=== PATIENT | female | born 1980 | race African-American/Black ===

== ENCOUNTER 2018-01-18 01:31 | Inpatient (IN) | payer MEDICAID, OTHER ==
[~2018-01-18] VITALS: Ht 160 cm; Wt 83.7 kg
[2018-01-18] VITALS (48 sets, daily range): BP systolic 57–117; BP diastolic 25–87
[~2018-01-18 01:31] MED LIST: ACIDOPHILUS1 EAC6 GT; ARTIFICIAL TEAR15 ML BOTH EYES; ATIVAN2 MG/1 ML IV; BISACODYL RC; CHLORHEXIDINE473 ML MM; COLACE100 MG GT; COREG25 MG GT; COREG25 MG ORAL; DILANTIN GT; DILANTIN100 MG GT; FERROUS SULFAT325 MG GT; HYDROGEN PEROX473 ML MC; KEPPRA100 MG/1 M IV; KEPPRA1000 MG ORAL; KEPPRA500 MG GT; LOVENOX10 M4 SUBQ; MAG-OXIDE400 M1 GT; MUCOMYST HHN; MULTI-DELYN237 ML GT; NEXIUM40 MG GT; PROSTAT AWC GT; TRAMADOL HCL50 MG GT; TYLENOL325 MG GT; UTI-STAT L3875 MG/31 GT; VITAMIN C500 MG/11 GT; XOPENEX0.63 MG/3 HHN; ZINC SULFATE220 M1 GT; ZOFRAN 4 MG4 MG/2 ML IM; ZOFRAN2 MG/1 M1 IM; ZOFRAN4 M3 ORAL; ZOFRAN8 MG ORAL
[2018-01-18] MEDS ORDERED: LORazepam Inj 2mg/ml 1ml IV ONE (02:00)
[2018-01-18] MEDS ORDERED: Acetaminophen 650mg/20.3ml GT ONE (02:00)
[2018-01-18] MEDS ORDERED: OMEPRAZOLE40 M1 GT (02:12)
[2018-01-18] MEDS ORDERED: HEPARIN SO5000 UNIT2 SUBQ (02:12)
[2018-01-18] MEDS ORDERED: ALBUTEROL2.5 MG/3 M TRANSTR092 (02:12)
[2018-01-18 02:38] LABS: BASOPHILS % (AUTO) 1.4 % (0.0-2.0); EOSINOPHILS % (AUTO) 0.1 % (0.0-3.0); HEMATOCRIT 63.4 % (37.0-47.0); LYMPHOCYTES % (AUTO) 10.2 % (20.0-45.0); MEAN CORPUSCULAR VOLUME 95 FL (80-99); NEUTROPHILS % (AUTO) 84.3 % (45.0-75.0); PLATELET COUNT 355 K/UL (150-450); RED BLOOD COUNT 6.65 M/UL (4.20-5.40); RED CELL DISTRIBUTION WIDTH 12.4 % (11.6-14.8); WHITE BLOOD COUNT 13.8 K/UL (4.8-10.8)
[2018-01-18 02:45] LABS: ANION GAP 11 mmol/L (5-15); BLOOD UREA NITROGEN 26 mg/dL (7-18); CALCIUM 9.8 MG/DL (8.5-10.1); CARBON DIOXIDE 25 MMOL/L (21-32); CHLORIDE 100 MMOL/L (98-107); CREATININE 1.9 MG/DL (0.55-1.30); HEMOGLOBIN 20.2 G/DL (12.0-16.0); POTASSIUM 3.8 MMOL/L (3.5-5.1); SODIUM 136 MMOL/L (136-145)
[2018-01-18 03:00] LABS: ALANINE AMINOTRANSFERASE 22 U/L (12-78); ALBUMIN 3.4 G/DL (3.4-5.0); ALBUMIN/GLOBULIN RATIO 0.6 (1.0-2.7); ALKALINE PHOSPHATASE 130 U/L (46-116); ASPARTATE AMINO TRANSFERASE 17 U/L (15-37); BILIRUBIN,TOTAL 0.8 MG/DL (0.2-1.0); CKMB < 0.5 NG/ML (0.0-3.6); CREATINE KINASE 35 U/L (26-308)
[2018-01-18] MEDS ORDERED: Potassium Chloride 10 MEQ in NS 1000ml 1,000 ML IV SCH (03:15)
[2018-01-18 03:52] LABS: APPEARANCE,URINE CLEAR; BILIRUBIN, URINE NEGATIVE (NEGATIVE); GLUCOSE, URINE (UA) NEGATIVE (NEGATIVE); KETONES,URINE NEGATIVE (NEGATIVE); NITRITE,URINE NEGATIVE (NEGATIVE); PH,URINE 8 (4.5-8.0); PROTEIN,URINE 1+ (NEGATIVE); UROBILINOGEN,URINE NORMAL MG/DL (0.0-1.0)
[2018-01-18 04:00] LABS: COLOR,URINE YELLOW; LEUKOCYTE ESTERASE ,URINE NEGATIVE (NEGATIVE)
[2018-01-18] MEDS ORDERED: Cefepime HCl 2 GM in D5W 55 ML IVPB ONE (04:15)
[2018-01-18] MEDS ORDERED: Azithromycin 500 MG in D5W 275 ML IVPB ONE (04:15)
[2018-01-18] MEDS ORDERED: Vancomycin 1.5gm/D5W 250ml 250 ML IVPB ONE (05:15)
[2018-01-18] MEDS ORDERED: Piperacillin/Tazobactam 3.375 GM in D5W 110 ML IVPB ONE (05:15)
[2018-01-18] MEDS ORDERED: Acetaminophen 650 MG SUPP RECTAL ONE (05:15)
--- NOTE | 2018-01-18 05:39 | Emergency Room Report ---
History of Present Illness General Chief Complaint: Altered Level of Consciousness Source: Medical Record, EMS Present Illness HPI 37-year-old female presents ED for evaluation. Patient brought in from nursing home facility for respiratory distress, tachycardia. Febrile in triage. History of anoxic brain injury. On trach/ventilator with G-tube. Upon arrival patient unable to provide any additional history at this time. History of anoxic brain injury. No other aggravating or relieving factors. Denies any other associated symptoms Allergies: Coded Allergies: No Known Allergies (Unverified , 01/18/15) Patient History Past Medical History: HTN, seizures, other - anoxic brain injury Past Surgical History: other - trach/vent Pertinent Family History: none Social History: Denies: smoking, alcohol use, drug use Last Menstrual Period: ukn Now: No Immunizations: UTD Reviewed Nursing Documentation: PMH: Agreed; PSxH: Agreed Nursing Documentation-PMH Hx Hypertension: Yes Hx Cancer: No Hx Gastrointestinal Problems: Yes - g-tube Hx Neurological Problems: Yes - Anoxic brain dammage Hx Seizures: Yes Hx Aphasia: Yes Review of Systems All Other Systems: limited Physical Exam Vital Signs Date Time Temp Pulse Resp B/P (MAP) Pulse Ox O2 Delivery O2 Flow Rate FiO2 01/18/18 01:25 100.6 156 38 141/107 Non-Rebreather 15.0 100.6 01/18/18 01:35 100 01/18/18 02:01 100 Sp02 EP Interpretation: reviewed, normal General Appearance: mild distress Head: normocephalic Eyes: bilateral eye normal inspection, bilateral eye PERRL ENT: normal ENT inspection Neck: tracheotomy Respiratory: crackles, rhonchi Cardiovascular #1: tachycardia Gastrointestinal: normal inspection, other - Gtube Rectal: deferred Genitourinary: normal inspection Musculoskeletal: other - contracted extremities Neurologic: other - nonverbal Psychiatric: other - nonverbal Skin: normal inspection Lymphatic: normal inspection Procedures Critical Care Time Critical Care Time i. I feel this is a highly complex case requiring extensive working including EKG/Rhythm strip, Xray/CT/US, Blood/urine lab work, repeat exams while in ED, and administration of strong opiates/narcotics for pain control, admission to hospital or close patient follow up. Total time: 30 min bedside evaluation and treatment excludes procedures (EKG). Reason for critical care: severe sepsis, hypotensive Possible complications: hypotension, hypertension, MD, shock, arrhythmias, metabolic acidosis, end organ damage, respiratory failure. Interventions: labs, ivfs, ekg, cxr, UA. central line. abx Course: patient presenting with respiratory distress. on ventilator. given ativan - no longer fighting ventilator. poor IV access. labs show leukocytosis , lactate > 6, EKG sinus tachycardia. given tylenol . given IVFs. central line. broad spectrum abx given Consultations: nursing staff, EMS, family Performed by: Dr Paulino Tolerated well condition = critical j. because of unstable vital signs this patient had a condition that could potentially threaten life or limb. I feel this is a critical patient who required my full attention while patient was considered critical. Total Critical Care Time excluding procedures was greater than 35 minutes Central Line Central Line : Consent: Emergent Central Line Lumen: triple Maximal Sterile Barrier Tech: yes cap, yes mask, yes sterile gown, yes sterile gloves, yes large sterile sheet, yes hand hygiene, yes chlorhexidine prep Central Line Postion: femoral (R) Anesthesia: Lidocaine Complications: none Central Line Post Position: sutured, good blood return Attempts: One Patient Tolerated: Well Complications: None Medical Decision Making Diagnostic Impression: Primary Impression: Severe sepsis Additional Impressions: Altered level of consciousness Anoxic brain injury Respiratory failure Qualified Codes: J96.90 - Respiratory failure, unspecified, unspecified whether with hypoxia or hypercapnia Renal insufficiency ER Course Hospital Course 37 yo F presenting with fever, tachycardia Differential diagnoses include: Pneumonia, UTI, sepsis, dehydration, MD/ unstable angina Clinical course Patient placed on stretcher. On legal entity controller with tachycardia/hypotension. After initial history and physical, I ordered labs, IV fluids, EKG, chest x-ray , blood cultures, UA. given tylenol Labs - BUN/Cr elevated, noted leukocytosis, troponins negative, lactate > 6 EKG - sinus tachycardia, no aute ischemic changes interpreted by me CXR - no acute process Patient has poor IV access. Right femoral central line placed. given 30cc/kg fluid bolus. f BP slowly improving Abx given. Case discussed with Dr Hernandez and they agreed to admit patient to their service for further care and support I feel this is a highly complex case requiring extensive working including EKG/ Rhythm strip, Xray/CT/US, Blood/urine lab work, repeat exams while in ED, and administration of strong opiates/narcotics for pain control, admission to hospital or close patient follow up. Diagnosis - severe sepsis, ALOC, anoxic brain jury, repsiratoty failuer, renal insufficiency Patient admitted to SDU in critical condition Labs Test 01/18/18 01:50 01/18/18 03:45 White Blood Count 13.8 K/UL (4.8-10.8) Red Blood Count 6.65 M/UL (4.20-5.40) Hemoglobin 20.2 G/DL (12.0-16.0) Hematocrit 63.4 % (37.0-47.0) Mean Corpuscular Volume 95 FL (80-99) Mean Corpuscular Hemoglobin 30.4 PG (27.0-31.0) Mean Corpuscular Hemoglobin Concent 31.9 G/DL (32.0-36.0) Red Cell Distribution Width 12.4 % (11.6-14.8) Platelet Count 355 K/UL (150-450) Mean Platelet Volume 7.2 FL (6.5-10.1) Neutrophils (%) (Auto) 84.3 % (45.0-75.0) Lymphocytes (%) (Auto) 10.2 % (20.0-45.0) Monocytes (%) (Auto) 4.0 % (1.0-10.0) Eosinophils (%) (Auto) 0.1 % (0.0-3.0) Basophils (%) (Auto) 1.4 % (0.0-2.0) Sodium Level 136 MMOL/L (136-145) Potassium Level 3.8 MMOL/L (3.5-5.1) Chloride Level 100 MMOL/L (98-107) Carbon Dioxide Level 25 MMOL/L (21-32) Anion Gap 11 mmol/L (5-15) Blood Urea Nitrogen 26 mg/dL (7-18) Creatinine 1.9 MG/DL (0.55-1.30) Estimat Glomerular Filtration Rate 36.2 mL/min (>60) Glucose Level 135 MG/DL (74-106) Lactic Acid Level 6.30 mmol/L (0.4-2.0) Calcium Level 9.8 MG/DL (8.5-10.1) Total Bilirubin 0.8 MG/DL (0.2-1.0) Aspartate Amino Transf (AST/SGOT) 17 U/L (15-37) Alanine Aminotransferase (ALT/SGPT) 22 U/L (12-78) Alkaline Phosphatase 130 U/L (46-116) Total Creatine Kinase 35 U/L (26-308) Creatine Kinase MB < 0.5 NG/ML (0.0-3.6) Creatine Kinase MB Relative Index 1.4 Troponin I 0.000 ng/mL (0.000-0.056) Pro-B-Type Natriuretic Peptide 278 pg/mL (0-125) Total Protein 9.4 G/DL (6.4-8.2) Albumin 3.4 G/DL (3.4-5.0) Globulin 6.0 g/dL Albumin/Globulin Ratio 0.6 (1.0-2.7) Urine Color Yellow Urine Appearance Clear Urine pH 8 (4.5-8.0) Urine Specific [place] 1.010 (1.005-1.035) Urine Protein 1+ (NEGATIVE) Urine Glucose (UA) Negative (NEGATIVE) Urine Ketones Negative (NEGATIVE) Urine Occult Blood Negative (NEGATIVE) Urine Nitrite Negative (NEGATIVE) Urine Bilirubin Negative (NEGATIVE) Urine Urobilinogen Normal MG/DL (0.0-1.0) Urine Leukocyte Esterase Negative (NEGATIVE) Urine RBC 0 /HPF (0 - 2) Urine WBC 0 /HPF (0 - 2) Urine Squamous Epithelial Cells None /LPF (NONE/OCC) Urine Triple Phosphate Crystals Many /LPF (NONE) Urine Amorphous Sediment Moderate /LPF (NONE) Urine Bacteria Few /HPF (NONE) EKG Diagnostic Results Rate: tachycardiac Rhythm: NSR ST Segments: no acute changes ASA given to the pt in ED: No Rhythm Strip Diag. Results EP Interpretation: yes Rhythm: NSR, no PVC's, no ectopy Chest X-Ray Diagnostic Results Chest X-Ray Diagnostic Results : Chest X-Ray Ordered: Yes # of Views/Limited/Complete: 1 View Indication: Shortness of Breath EP Interpretation: Yes Interpretation: no consolidation, no effusion, no pneumothorax, no acute cardiopulmonary disease Impression: No acute disease Electronically Signed by: Electronically signed by Manish Paulino MD Last Vital Signs Date Time Temp Pulse Resp B/P (MAP) Pulse Ox O2 Delivery O2 Flow Rate FiO2 01/18/18 05:22 143 25 100 01/18/18 03:25 101.2 100/69 100 Trach Collar 15.0 101.2 Status: improved Disposition: ADMITTED INPATIENT Condition: Critical Referrals: LARISA SHAW (PCP) Manish Paulino MD Jan 18, 2018 05:39
[2018-01-18] MEDS ORDERED: Morphine Sulfate 4mg/ml Inj (IV USE ONLY) IVP PRN ×2 (07:15→15:15)
[2018-01-18] MEDS ORDERED: LORazepam Inj 2mg/ml 1ml IV PRN ×2 (07:15→13:15)
[2018-01-18] MEDS ORDERED: Miralax 17gm pkt ORAL PRN (07:15)
[2018-01-18] MEDS ORDERED: Albuterol/Ipratropium 3ml neb HHN PRN ×2 (07:15→15:15)
[2018-01-18] MEDS ORDERED: Pantoprazole Inj IV SCH (09:00)
[2018-01-18] MEDS ORDERED: Phenytoin 100mg cap ORAL SCH (09:00)
[2018-01-18] MEDS: Carvedilol 25mg Tab ORAL SCH ×2 (09:00→09:13)
[2018-01-18] MEDS ORDERED: Heparin 5000 units/ml inj SUBQ SCH (09:00)
--- NOTE | 2018-01-18 10:21 | Diagnostic Imaging Report ---
Indication: Dyspnea Comparison: 06/02/2016 A single view chest radiograph was obtained. Findings: There is abnormal hyperlucency within the visualized part of the abdomen which may be due to free air and/or dilated bowel, which there is some evidence for. Please correlate clinically for recent surgery or procedure that may account for this. Tracheostomy is present. Lungs are clear. IMPRESSION: Hyperlucent the upper abdomen. Free air not excluded. Correlate clinically. Distended bowel also noted. No acute disease within the chest Tracheostomy Critical value communication. Findings were discussed via telephone with Dr. Robles in the E.D @10:03 AM, 01/18/18. The patient was admitted. We will follow up with the admission physician.
--- NOTE | 2018-01-18 10:42 | Pulmonolgy Critical Care Note ---
Critical Care - Asmt/Plan Problems: (1) Acute on chronic respiratory failure (2) Sepsis (3) Anoxic brain injury (4) Feeding by G-tube (5) Tachycardia Respiratory: monitor respiratory rate, adjust FIO2, CXR Cardiac: continue to monitor HR/BP Renal: F/U I&O, keep IV fluid, check electrolytes Infectious Disease: check cultures Gastrointestinal: adjust feedings Endocrine: monitor blood sugar, continue sliding scale insulin Hematologic: monitor H/H, transfuse if hgb<8.5 Neurologic: keep patient comfortable Prophylaxis: Heparin Notes Reviewed: vice president of finance, cardio, renal Discussed with: nurses, consultants, case reviewersales effectiveness manager - Objective Last 24 Hour Vital Signs Date Time Temp Pulse Resp B/P (MAP) Pulse Ox O2 Delivery O2 Flow Rate FiO2 01/18/18 09:29 149 23 100 01/18/18 09:13 149 99/67 01/18/18 06:50 98.8 129 16 106/72 93 Mechanical Ventilator 30 98.8 01/18/18 06:44 136 22 100 01/18/18 06:30 101.3 126 19 98/64 100 Trach Collar 15.0 100 101.3 01/18/18 06:22 101.3 126 19 98/64 100 Trach Collar 15.0 100 101.3 01/18/18 06:21 101.3 01/18/18 05:41 101.9 01/18/18 05:30 142 20 90/66 100 Trach Collar 15.0 100 01/18/18 05:22 143 25 100 01/18/18 04:30 101.5 145 24 92/62 Trach Collar 15.0 101.5 01/18/18 03:25 101.2 141 18 100/69 100 Trach Collar 15.0 101.2 01/18/18 02:47 101.2 01/18/18 02:30 101.2 130 17 98/67 100 Mechanical Ventilator 15.0 100 101.2 01/18/18 02:17 100.6 01/18/18 02:08 154 25 100 01/18/18 02:01 154 25 Mechanical Ventilator 100 01/18/18 01:50 100.6 131 18 97/74 100 Trach Collar 15.0 100.6 01/18/18 01:35 100.6 132 17 108/87 100 Trach Collar 15.0 100.6 01/18/18 01:25 100.6 156 38 141/107 Non-Rebreather 15.0 100.6 Status: awake Condition: critical HEENT: atraumatic Lungs: chest wall tender Abdomen: soft, non-tender Extremities: no C/C/E Decubiti: location Critical Care - Subjective ROS Limited/Unobtainable: Yes Condition: critical EKG Rhythm: Sinus Rhythm FI02: 100 Vent Support Breath Rate: 16 Vent Support Mode: AC Vent Tidal Volume: 500 Sputum Amount: Scant PEEP: 0.0 PIP: 28 I&O: Intake and Output 01/17/18 01/18/18 19:00 07:00 Intake Total 1000 ml Balance 1000 ml Intake IV Total 1000 ml CXR: MELCHOR Labs: Laboratory Tests Test 01/18/18 01:50 01/18/18 03:45 01/18/18 05:24 White Blood Count 13.8 K/UL (4.8-10.8) H Red Blood Count 6.65 M/UL (4.20-5.40) H Hemoglobin 20.2 G/DL (12.0-16.0) *H Hematocrit 63.4 % (37.0-47.0) H Mean Corpuscular Volume 95 FL (80-99) Mean Corpuscular Hemoglobin 30.4 PG (27.0-31.0) Mean Corpuscular Hemoglobin Concent 31.9 G/DL (32.0-36.0) L Red Cell Distribution Width 12.4 % (11.6-14.8) Platelet Count 355 K/UL (150-450) Mean Platelet Volume 7.2 FL (6.5-10.1) Neutrophils (%) (Auto) 84.3 % (45.0-75.0) H Lymphocytes (%) (Auto) 10.2 % (20.0-45.0) L Monocytes (%) (Auto) 4.0 % (1.0-10.0) Eosinophils (%) (Auto) 0.1 % (0.0-3.0) Basophils (%) (Auto) 1.4 % (0.0-2.0) Sodium Level 136 MMOL/L (136-145) Potassium Level 3.8 MMOL/L (3.5-5.1) Chloride Level 100 MMOL/L (98-107) Carbon Dioxide Level 25 MMOL/L (21-32) Anion Gap 11 mmol/L (5-15) Blood Urea Nitrogen 26 mg/dL (7-18) H Creatinine 1.9 MG/DL (0.55-1.30) H Estimat Glomerular Filtration Rate 36.2 mL/min (>60) Glucose Level 135 MG/DL (74-106) H Lactic Acid Level 6.30 mmol/L (0.4-2.0) H 6.00 mmol/L (0.66-2.22) H Calcium Level 9.8 MG/DL (8.5-10.1) Total Bilirubin 0.8 MG/DL (0.2-1.0) Aspartate Amino Transf (AST/SGOT) 17 U/L (15-37) Alanine Aminotransferase (ALT/SGPT) 22 U/L (12-78) Alkaline Phosphatase 130 U/L (46-116) H Total Creatine Kinase 35 U/L (26-308) Creatine Kinase MB < 0.5 NG/ML (0.0-3.6) Creatine Kinase MB Relative Index 1.4 Troponin I 0.000 ng/mL (0.000-0.056) Pro-B-Type Natriuretic Peptide 278 pg/mL (0-125) H Total Protein 9.4 G/DL (6.4-8.2) H Albumin 3.4 G/DL (3.4-5.0) Globulin 6.0 g/dL Albumin/Globulin Ratio 0.6 (1.0-2.7) L Urine Color Yellow Urine Appearance Clear Urine pH 8 (4.5-8.0) Urine Specific [place] 1.010 (1.005-1.035) Urine Protein 1+ (NEGATIVE) H Urine Glucose (UA) Negative (NEGATIVE) Urine Ketones Negative (NEGATIVE) Urine Occult Blood Negative (NEGATIVE) Urine Nitrite Negative (NEGATIVE) Urine Bilirubin Negative (NEGATIVE) Urine Urobilinogen Normal MG/DL (0.0-1.0) Urine Leukocyte Esterase Negative (NEGATIVE) Urine RBC 0 /HPF (0 - 2) Urine WBC 0 /HPF (0 - 2) Urine Squamous Epithelial Cells None /LPF (NONE/OCC) Urine Triple Phosphate Crystals Many /LPF (NONE) H Urine Amorphous Sediment Moderate /LPF (NONE) H Urine Bacteria Few /HPF (NONE) Hepatitis B Surface Antibody Pending Hepatitis C Antibody Pending HIV (1&2) Antibody Rapid Negative (NEGATIVE) Yanick Hernandez MD Jan 18, 2018 10:42
--- NOTE | 2018-01-18 11:27 | Emergency Room Report ---
History of Present Illness General Chief Complaint: Altered Level of Consciousness Source: Medical Record Present Illness Allergies: Coded Allergies: No Known Allergies (Unverified , 01/18/15) Patient History Last Menstrual Period: ukn Now: No Nursing Documentation-[facility] Past Medical History: No History, Except For Hx Cardiac Problems: Yes Hx Hypertension: Yes Hx Cancer: No Hx Gastrointestinal Problems: Yes Hx Neurological Problems: Yes - Anoxic brain damage Hx Seizures: Yes Hx Epilepsy: Yes Hx Aphasia: Yes Physical Exam Vital Signs Date Time Temp Pulse Resp B/P (MAP) Pulse Ox O2 Delivery O2 Flow Rate FiO2 01/18/18 01:25 100.6 156 38 141/107 Non-Rebreather 15.0 100.6 01/18/18 01:35 100 01/18/18 02:01 100 Medical Decision Making Diagnostic Impression: Primary Impression: Severe sepsis Additional Impressions: Altered level of consciousness Anoxic brain injury Renal insufficiency Respiratory failure ER Course The patient was noted to have bradycardia asystolic arrest. The patient was given epinephrine prior to my arrival. She was given IV bicarbonate. The patient was noted to have a return spontaneous circulation. The patient subsequent had a perfusing rhythm. He was started on mechanical ventilator and transferred ICU.Dr. Hernandez was contacted and informed of the patient's recent code. Last Vital Signs Date Time Temp Pulse Resp B/P (MAP) Pulse Ox O2 Delivery O2 Flow Rate FiO2 01/18/18 09:29 149 23 100 01/18/18 09:13 99/67 01/18/18 06:50 98.8 93 Mechanical Ventilator 98.8 01/18/18 06:30 15.0 Disposition: ADMITTED INPATIENT Condition: Critical Referrals: LARISA SHAW (PCP) Ashwin Robles MD Jan 18, 2018 11:27
[2018-01-18] MEDS ORDERED: Phenylephrine 50 MG in D5W 245 ML IV SCH (12:45)
[2018-01-18] MEDS ORDERED: Solu-MEDROL 125mg Inj IVP SCH (12:55)
[2018-01-18] MEDS: Phenylephrine 50 MG in D5W 245 ML IV SCH ×3 (16:19→23:41)
[2018-01-18] MEDS ORDERED: D5 1/2NS 1,000 ML IV SCH (16:30)
[2018-01-18] MEDS ORDERED: EPINEPHrine 1mg/1ml Amp 1 MG in D5W 249 ML IV STA (16:30)
[2018-01-18] MEDS: D5 1/2NS 1,000 ML IV SCH ×2 (17:15→21:31)
--- NOTE | 2018-01-18 17:42 | Consultation ---
History of Present Illness General Date patient seen: Jan 18, 2018 Chief Complaint: Altered Level of Consciousness Present Illness HPI 37 y/o F with hx of HTN, seizure disorder, anoxic brain injury, chronic resp failure trach/vent dependant, s/p G-tbue, SNF resident is brought to ED on 01/18 with resp distress, tachycardia and fever. In the ED, the patient was noted to have bradicardic> asystolic arrest, given Epi, IV bicarbonate with return of spontaneous circulation. Admitted to ICU, currently on maxed on 2 pressors; a 3rd one will be added soon.. Tm 101.3 leukocytosis to 13.8 lactic acidosis to 7 Allergies: Coded Allergies: No Known Allergies (Unverified , 01/18/15) Medication History Scheduled Acetylcysteine (Acetylcysteine), 20 % HHN Q6HR, (Reported) Carvedilol (Coreg), 25 MG ORAL EVERY 12 HOURS, (Reported) Carvedilol (Coreg), 25 MG GT EVERY 12 HOURS, (Reported) Chlorhexidine Gluconate (Chlorhexidine Gluconate), 473 ML MM BID, (Reported) Cran/Vitc/Mannose/Inulin/Brom (Uti-Stat Liquid), 30 ML GT BID, (Reported) Docusate Sodium* (Colace*), 100 MG GT TWICE A DAY, (Reported) Enoxaparin* (Lovenox*), 50 MG SUBQ DAILY, (Reported) Esomeprazole Magnesium (Nexium), 40 MG GT DAILY, (Reported) Ferrous Sulfate* (Ferrous Sulfate*), 300 MG GT THREE TIMES A DAY, (Reported) Heparin Sod (Porcine) (Heparin Sodium*), 5,000 UNITS SUBQ DAILY, (Reported) Hydrogen Peroxide (Hydrogen Peroxide), 473 ML MC BID, (Reported) Lactobacillus Acidophilus (Acidophilus), 2 EACH GT TID, (Reported) Levalbuterol Hcl (Xopenex*), 0.63 MG HHN Q6H, (Reported) Levetiracetam (Keppra), 1,000 MG ORAL BID, (Reported) Levetiracetam (Keppra), 1,000 MG GT EVERY 12 HOURS, (Reported) Magnesium Oxide (Mag-Oxide), 400 MG GT BID, (Reported) Multivitamin Liquid* (Multi-Delyn*), 5 ML GT DAILY, (Reported) Omeprazole (Omeprazole), 40 MG GT DAILY, (Reported) Phenytoin Sodium Extended* (Dilantin*), 150 MG GT Q12HR, (Reported) Vit C/Ascorbate Ca/Ascorb Sod (Vitamin C 500 Mg/15 Ml Liquid), 500 MG GT DAILY, (Reported) Zinc Sulfate (Zinc Sulfate*), 220 MG GT DAILY, (Reported) [dilantin susp], 200 MG GT Q12HR, (Reported) [prostat awc], 30 ML GT DAILY, (Reported) Scheduled PRN Acetaminophen (Tylenol), 650 MG GT Q6H PRN for Mild Pain/Temp > 100.5, (Reported ) Albuterol Sulfate* (Albuterol Sulfate Hhn*), 3 ML [id number] Q3HR PRN for Shortness of Breath, (Reported) Dextran 70/Hypromellose (Artificial Tears Eye Drops*), 1 DROP BOTH EYES Q4HR PRN for Dry Eyes, (Reported) Lorazepam* (Ativan*), 2 MG IV Q4H PRN for For Seizures, (Reported) Ondansetron Hcl (Zofran), 8 MG IM Q8HR PRN for Nausea & Vomiting, (Reported) Ondansetron Hcl* (Zofran*), 8 MG ORAL Q6H PRN for Nausea & Vomiting, (Reported) Ondansetron* (Zofran*), 4 MG IM Q8H PRN for Nausea & Vomiting, (Reported) Ondansetron* (Zofran*), 8 MG ORAL Q6H PRN for Nausea & Vomiting, (Reported) Tramadol Hcl* (Ultram*), 50 MG GT DAILY PRN for For Pain, (Reported) [dulcolax sup], 10 MG RC Q12HR PRN for Constipation, (Reported) Miscellaneous Medications Levetiracetam (Keppra), 500 MG IV, (Reported) Patient History Healthcare decision maker Resuscitation status Full Code Advanced Directive on File Patient History Narrative Pmhx: as above Shx: no smoking, alcohol use, drug use Fhx: non contributory Review of Systems ROS Narrative unable to obtain Physical Exam Physical Exam Narrative General Appearance: chronically ill HEENT: normocephalic, bilateral eye PERRL Neck: tracheotomy Respiratory: crackles, rhonchi Cardiovascular : tachycardia Gastrointestinal: Gtube present; significant abd distention with some grimacing upon palpation; diminished to absent bowel sounds Genitourinary: rock in place Musculoskeletal: other - contracted extremities Neurologic: other - nonverbal Skin: no rash or cellulitis Last 24 Hour Vital Signs Date Time Temp Pulse Resp B/P (MAP) Pulse Ox O2 Delivery O2 Flow Rate FiO2 01/18/18 16:19 104 57/32 01/18/18 16:00 35 01/18/18 15:05 102 17 35 01/18/18 14:53 68/53 01/18/18 13:42 99 18 100 01/18/18 13:30 98 18 67/49 Mechanical Ventilator 99 01/18/18 13:00 101 18 94/39 Mechanical Ventilator 100 01/18/18 12:30 97 18 57/32 Mechanical Ventilator 100 01/18/18 12:22 64/38 01/18/18 12:15 99 18 62/40 Mechanical Ventilator 100 01/18/18 12:00 99.3 98 18 62/44 Mechanical Ventilator 99 99.3 01/18/18 12:00 98 01/18/18 12:00 35 01/18/18 11:55 97 18 57/32 Mechanical Ventilator 100 01/18/18 11:50 99 19 66/34 Mechanical Ventilator 100 01/18/18 11:40 100 20 76/52 100 Mechanical Ventilator 100 01/18/18 11:37 99 20 69/49 100 Mechanical Ventilator 100 01/18/18 11:05 142 24 100 01/18/18 09:29 149 23 100 01/18/18 09:13 149 99/67 01/18/18 08:00 100 01/18/18 08:00 99.1 144 19 99/67 100 Mechanical Ventilator 100 99.1 01/18/18 08:00 143 01/18/18 06:50 98.8 129 16 106/72 93 Mechanical Ventilator 30 98.8 01/18/18 06:44 136 22 100 01/18/18 06:30 101.3 126 19 98/64 100 Trach Collar 15.0 100 101.3 01/18/18 06:22 101.3 126 19 98/64 100 Trach Collar 15.0 100 101.3 01/18/18 06:21 101.3 01/18/18 05:41 101.9 01/18/18 05:30 142 20 90/66 100 Trach Collar 15.0 100 01/18/18 05:22 143 25 100 01/18/18 04:30 101.5 145 24 92/62 Trach Collar 15.0 101.5 01/18/18 03:25 101.2 141 18 100/69 100 Trach Collar 15.0 101.2 01/18/18 02:47 101.2 01/18/18 02:30 101.2 130 17 98/67 100 Mechanical Ventilator 15.0 100 101.2 01/18/18 02:17 100.6 01/18/18 02:08 154 25 100 01/18/18 02:01 154 25 Mechanical Ventilator 100 01/18/18 01:50 100.6 131 18 97/74 100 Trach Collar 15.0 100.6 01/18/18 01:35 100.6 132 17 108/87 100 Trach Collar 15.0 100.6 01/18/18 01:25 100.6 156 38 141/107 Non-Rebreather 15.0 100.6 Intake and Output 01/17/18 01/18/18 19:00 07:00 Intake Total 1000 ml Balance 1000 ml Intake IV Total 1000 ml Laboratory Tests Test 01/18/18 01:50 01/18/18 03:45 01/18/18 05:24 01/18/18 15:40 White Blood Count 13.8 K/UL (4.8-10.8) H Red Blood Count 6.65 M/UL (4.20-5.40) H Hemoglobin 20.2 G/DL (12.0-16.0) *H Hematocrit 63.4 % (37.0-47.0) H Mean Corpuscular Volume 95 FL (80-99) Mean Corpuscular Hemoglobin 30.4 PG (27.0-31.0) Mean Corpuscular Hemoglobin Concent 31.9 G/DL (32.0-36.0) L Red Cell Distribution Width 12.4 % (11.6-14.8) Platelet Count 355 K/UL (150-450) Mean Platelet Volume 7.2 FL (6.5-10.1) Neutrophils (%) (Auto) 84.3 % (45.0-75.0) H Lymphocytes (%) (Auto) 10.2 % (20.0-45.0) L Monocytes (%) (Auto) 4.0 % (1.0-10.0) Eosinophils (%) (Auto) 0.1 % (0.0-3.0) Basophils (%) (Auto) 1.4 % (0.0-2.0) Sodium Level 136 MMOL/L (136-145) Potassium Level 3.8 MMOL/L (3.5-5.1) Chloride Level 100 MMOL/L (98-107) Carbon Dioxide Level 25 MMOL/L (21-32) Anion Gap 11 mmol/L (5-15) Blood Urea Nitrogen 26 mg/dL (7-18) H Creatinine 1.9 MG/DL (0.55-1.30) H Estimat Glomerular Filtration Rate 36.2 mL/min (>60) Glucose Level 135 MG/DL (74-106) H Lactic Acid Level 6.30 mmol/L (0.4-2.0) H 6.00 mmol/L (0.66-2.22) H 7.80 mmol/L (0.4-2.0) H Uric Acid 3.4 MG/DL (2.6-7.2) Calcium Level 9.8 MG/DL (8.5-10.1) Total Bilirubin 0.8 MG/DL (0.2-1.0) Aspartate Amino Transf (AST/SGOT) 17 U/L (15-37) Alanine Aminotransferase (ALT/SGPT) 22 U/L (12-78) Alkaline Phosphatase 130 U/L (46-116) H Total Creatine Kinase 35 U/L (26-308) Creatine Kinase MB < 0.5 NG/ML (0.0-3.6) Creatine Kinase MB Relative Index 1.4 Troponin I 0.000 ng/mL (0.000-0.056) Pro-B-Type Natriuretic Peptide 278 pg/mL (0-125) H Total Protein 9.4 G/DL (6.4-8.2) H Albumin 3.4 G/DL (3.4-5.0) Globulin 6.0 g/dL Albumin/Globulin Ratio 0.6 (1.0-2.7) L Urine Color Yellow Urine Appearance Clear Urine pH 8 (4.5-8.0) Urine Specific [place] 1.010 (1.005-1.035) Urine Protein 1+ (NEGATIVE) H Urine Glucose (UA) Negative (NEGATIVE) Urine Ketones Negative (NEGATIVE) Urine Occult Blood Negative (NEGATIVE) Urine Nitrite Negative (NEGATIVE) Urine Bilirubin Negative (NEGATIVE) Urine Urobilinogen Normal MG/DL (0.0-1.0) Urine Leukocyte Esterase Negative (NEGATIVE) Urine RBC 0 /HPF (0 - 2) Urine WBC 0 /HPF (0 - 2) Urine Squamous Epithelial Cells None /LPF (NONE/OCC) Urine Triple Phosphate Crystals Many /LPF (NONE) H Urine Amorphous Sediment Moderate /LPF (NONE) H Urine Bacteria Few /HPF (NONE) Hepatitis B Surface Antibody Pending Hepatitis C Antibody Pending HIV (1&2) Antibody Rapid Negative (NEGATIVE) Test 01/18/18 15:52 Arterial Blood pH 7.337 (7.350-7.450) Arterial Blood Partial Pressure CO2 27.6 mmHg (35.0-45.0) L Arterial Blood Partial Pressure O2 88.6 mmHg (75.0-100.0) Arterial Blood HCO3 14.5 mmol/L (22.0-26.0) L Arterial Blood Oxygen Saturation 97.2 % (92.0-98.0) Arterial Blood Base Excess -9.5 Benjie Test Positive Height (Feet): 5 Height (Inches): 2.00 Weight (Pounds): 161 Medications Current Medications Medications (Trade) Dose Ordered Sig/Kel Route PRN Reason Start Time Stop Time Status Last Admin Dose Admin Acetaminophen (Tylenol) 650 mg Q4H PRN ORAL FEVER 01/18/18 13:00 02/17/18 08:59 Albuterol/ Ipratropium (Albuterol/ Ipratropium) 3 ml Q4H PRN HHN Shortness of Breath 01/18/18 15:15 01/23/18 07:14 Carvedilol (Coreg) 25 mg EVERY 12 HOURS ORAL 01/18/18 21:00 02/17/18 08:59 Dextrose (Dextrose 50%) 25 ml STAT PRN IV Hypoglycemia 01/19/18 07:15 02/17/18 07:14 Dextrose (Dextrose 50%) 50 ml STAT PRN IV Hypoglycemia 01/19/18 07:30 02/17/18 07:29 Dextrose/Sodium Chloride 1,000 ml @ 50 mls/hr Q20H IV 01/18/18 16:30 02/17/18 16:29 UNV Dextrose/Sodium Chloride 1,000 ml @ 100 mls/hr Q10H IV 01/18/18 14:00 02/17/18 13:59 UNV Heparin Sodium (Porcine) (Heparin 5000 units/ml) 5,000 units EVERY 12 HOURS SUBQ 01/18/18 21:00 02/17/18 08:59 Levetiracetam (Keppra) 1,000 mg BID ORAL 01/18/18 18:00 02/17/18 08:59 Lorazepam (Ativan 2mg/ml 1ml) 2 mg Q2H PRN IV For Anxiety 01/18/18 13:15 01/25/18 07:14 Morphine Sulfate (Morphine Sulfate) 4 mg Q4H PRN IVP Severe Pain (Pain Scale 7-10) 01/18/18 15:15 01/25/18 07:14 Norepinephrine Bitartrate 4 mg/ Dextrose 250 ml @ 0 mls/hr Q24H IV 01/19/18 12:30 02/17/18 12:29 01/18/18 14:53 Norepinephrine Bitartrate 8 mg/ Dextrose 508 ml @ 0 mls/hr Q24H IV 01/18/18 17:00 02/17/18 16:59 Ondansetron HCl (Zofran) 4 mg Q6H PRN IVP Nausea & Vomiting 01/18/18 13:15 02/17/18 07:14 Pantoprazole (Protonix) 40 mg DAILY IV 01/19/18 09:00 02/17/18 08:59 Phenylephrine HCl 50 mg/Dextrose 250 ml @ 0 mls/hr Q24H IV 01/18/18 15:00 02/17/18 14:59 01/18/18 16:19 Phenytoin (Dilantin) 150 mg Q12HR ORAL 01/18/18 21:00 02/17/18 20:59 Polyethylene Glycol (Miralax) 17 gm DAILYPRN PRN ORAL Constipation 01/19/18 07:15 02/17/18 07:14 Vancomycin HCl (Vanco rx to dose) 1 ea DAILY PRN MISC per rx protocol 01/18/18 13:30 02/17/18 13:29 Vancomycin/Sodium Chloride 250 ml @ 166.667 mls/hr Q24H IVPB 01/19/18 05:00 01/24/18 04:59 Assessment/Plan Assessment/Plan Abx: IV Vanco 01/18- Cefepime x1 01/18 Zosyn x1 01/18 Azithromycin x1 01/18 Assessment: Septic shock- r/o bacteremia. No obvious pathology on lungs on CXR. r/o UTI -Bcx p -u/a initial normal; repeat WBC 10-15, nit +, leuk +1 but sq cells mod ( contaminated) -sp cx p ?bowel perforation -suggestive of free air on CXR -CXR: Hyperlucent the upper abdomen. Free air not excluded. Correlate clinically. Distended bowel also noted. No acute disease within the chest. Tracheostomy Fever/leukocytosis Bradycardia> Asystolic cardiac arrest Acute on chronic respirator failure Lactic acidosis INDIRA HTN seizure disorder anoxic brain injury 2014 chronic resp failure trach/vent dependant 2014 s/p G-tube 2014 SNF resident Plan: -Switch IV Vancomycin #1 to Daptomycin for VRE coverage in setting of possible bowel perforation -Start Meropenem and IV Micafungin -STAT KUB and CXR -f/u cx -Monitor CBC/BMP, temperatures -Trend WBC, lactic acid -repeat u/a w/ reflex Thank you for this consultation. Will continue to follow along with you. Discussed with RN. Notified Dr Hernandez and Dr Ferguson. Amelia Bah M.D. Jan 18, 2018 17:42
--- NOTE | 2018-01-18 17:48 | Consultation ---
History of Present Illness General Date patient seen: Jan 18, 2018 Time patient seen: 12:53 Chief Complaint: Altered Level of Consciousness Reason for Consultation: Shock, hypotension Present Illness HPI 37 year old female with anoxic brain injury in ICU with hypotensive requiring pressor support, she is chronically ventilated and on G tube. She was sent to ICU with tachycardia and hypotension. She is currently on three pressors. She was originally sent for G tube malfunction. Allergies: Coded Allergies: No Known Allergies (Unverified , 01/18/15) Medication History Scheduled Acetylcysteine (Acetylcysteine), 20 % HHN Q6HR, (Reported) Carvedilol (Coreg), 25 MG ORAL EVERY 12 HOURS, (Reported) Carvedilol (Coreg), 25 MG GT EVERY 12 HOURS, (Reported) Chlorhexidine Gluconate (Chlorhexidine Gluconate), 473 ML MM BID, (Reported) Cran/Vitc/Mannose/Inulin/Brom (Uti-Stat Liquid), 30 ML GT BID, (Reported) Docusate Sodium* (Colace*), 100 MG GT TWICE A DAY, (Reported) Enoxaparin* (Lovenox*), 50 MG SUBQ DAILY, (Reported) Esomeprazole Magnesium (Nexium), 40 MG GT DAILY, (Reported) Ferrous Sulfate* (Ferrous Sulfate*), 300 MG GT THREE TIMES A DAY, (Reported) Heparin Sod (Porcine) (Heparin Sodium*), 5,000 UNITS SUBQ DAILY, (Reported) Hydrogen Peroxide (Hydrogen Peroxide), 473 ML MC BID, (Reported) Lactobacillus Acidophilus (Acidophilus), 2 EACH GT TID, (Reported) Levalbuterol Hcl (Xopenex*), 0.63 MG HHN Q6H, (Reported) Levetiracetam (Keppra), 1,000 MG ORAL BID, (Reported) Levetiracetam (Keppra), 1,000 MG GT EVERY 12 HOURS, (Reported) Magnesium Oxide (Mag-Oxide), 400 MG GT BID, (Reported) Multivitamin Liquid* (Multi-Delyn*), 5 ML GT DAILY, (Reported) Omeprazole (Omeprazole), 40 MG GT DAILY, (Reported) Phenytoin Sodium Extended* (Dilantin*), 150 MG GT Q12HR, (Reported) Vit C/Ascorbate Ca/Ascorb Sod (Vitamin C 500 Mg/15 Ml Liquid), 500 MG GT DAILY, (Reported) Zinc Sulfate (Zinc Sulfate*), 220 MG GT DAILY, (Reported) [dilantin susp], 200 MG GT Q12HR, (Reported) [prostat awc], 30 ML GT DAILY, (Reported) Scheduled PRN Acetaminophen (Tylenol), 650 MG GT Q6H PRN for Mild Pain/Temp > 100.5, (Reported ) Albuterol Sulfate* (Albuterol Sulfate Hhn*), 3 ML [id number] Q3HR PRN for Shortness of Breath, (Reported) Dextran 70/Hypromellose (Artificial Tears Eye Drops*), 1 DROP BOTH EYES Q4HR PRN for Dry Eyes, (Reported) Lorazepam* (Ativan*), 2 MG IV Q4H PRN for For Seizures, (Reported) Ondansetron Hcl (Zofran), 8 MG IM Q8HR PRN for Nausea & Vomiting, (Reported) Ondansetron Hcl* (Zofran*), 8 MG ORAL Q6H PRN for Nausea & Vomiting, (Reported) Ondansetron* (Zofran*), 4 MG IM Q8H PRN for Nausea & Vomiting, (Reported) Ondansetron* (Zofran*), 8 MG ORAL Q6H PRN for Nausea & Vomiting, (Reported) Tramadol Hcl* (Ultram*), 50 MG GT DAILY PRN for For Pain, (Reported) [dulcolax sup], 10 MG RC Q12HR PRN for Constipation, (Reported) Miscellaneous Medications Levetiracetam (Keppra), 500 MG IV, (Reported) Patient History Healthcare decision maker Resuscitation status Full Code Advanced Directive on File Review of Systems Constitutional: Reports: no symptoms Eye: Reports: no symptoms ENT: Reports: no symptoms Respiratory: Reports: shortness of breath Cardiovascular: Reports: palpitations Gastrointestinal: Reports: no symptoms Genitourinary: Reports: no symptoms Musculoskeletal: Reports: no symptoms Skin: Reports: no symptoms Psychiatric: Reports: no symptoms Neurological: Reports: no symptoms Endocrine: Reports: no symptoms Physical Exam General Appearance: lethargic Lines, tubes and drains: peripheral, endotracheal tube, rock cath HEENT: normocephalic, atraumatic Neck: non-tender Respiratory/Chest: chest wall non-tender Cardiovascular/Chest: tachycardia Abdomen: normal bowel sounds, feeding tube Extremities: normal range of motion Skin Exam: normal pigmentation Neurologic: cast associate II-XII 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 Last 24 Hour Vital Signs Date Time Temp Pulse Resp B/P (MAP) Pulse Ox O2 Delivery O2 Flow Rate FiO2 01/18/18 16:19 104 57/32 01/18/18 16:00 35 01/18/18 15:05 102 17 35 01/18/18 14:53 68/53 01/18/18 13:42 99 18 100 01/18/18 13:30 98 18 67/49 Mechanical Ventilator 99 01/18/18 13:00 101 18 94/39 Mechanical Ventilator 100 01/18/18 12:30 97 18 57/32 Mechanical Ventilator 100 01/18/18 12:22 64/38 01/18/18 12:15 99 18 62/40 Mechanical Ventilator 100 01/18/18 12:00 99.3 98 18 62/44 Mechanical Ventilator 99 99.3 01/18/18 12:00 98 01/18/18 12:00 35 01/18/18 11:55 97 18 57/32 Mechanical Ventilator 100 01/18/18 11:50 99 19 66/34 Mechanical Ventilator 100 01/18/18 11:40 100 20 76/52 100 Mechanical Ventilator 100 01/18/18 11:37 99 20 69/49 100 Mechanical Ventilator 100 01/18/18 11:05 142 24 100 01/18/18 09:29 149 23 100 01/18/18 09:13 149 99/67 01/18/18 08:00 100 01/18/18 08:00 99.1 144 19 99/67 100 Mechanical Ventilator 100 99.1 01/18/18 08:00 143 01/18/18 06:50 98.8 129 16 106/72 93 Mechanical Ventilator 30 98.8 01/18/18 06:44 136 22 100 01/18/18 06:30 101.3 126 19 98/64 100 Trach Collar 15.0 100 101.3 01/18/18 06:22 101.3 126 19 98/64 100 Trach Collar 15.0 100 101.3 01/18/18 06:21 101.3 01/18/18 05:41 101.9 01/18/18 05:30 142 20 90/66 100 Trach Collar 15.0 100 7/2/18 05:22 143 25 100 01/18/18 04:30 101.5 145 24 92/62 Trach Collar 15.0 101.5 01/18/18 03:25 101.2 141 18 100/69 100 Trach Collar 15.0 101.2 01/18/18 02:47 101.2 01/18/18 02:30 101.2 130 17 98/67 100 Mechanical Ventilator 15.0 100 101.2 01/18/18 02:17 100.6 01/18/18 02:08 154 25 100 01/18/18 02:01 154 25 Mechanical Ventilator 100 01/18/18 01:50 100.6 131 18 97/74 100 Trach Collar 15.0 100.6 01/18/18 01:35 100.6 132 17 108/87 100 Trach Collar 15.0 100.6 01/18/18 01:25 100.6 156 38 141/107 Non-Rebreather 15.0 100.6 Intake and Output 01/17/18 01/18/18 19:00 07:00 Intake Total 1000 ml Balance 1000 ml Intake IV Total 1000 ml Laboratory Tests Test 01/18/18 01:50 01/18/18 03:45 01/18/18 05:24 01/18/18 15:40 White Blood Count 13.8 K/UL (4.8-10.8) H Red Blood Count 6.65 M/UL (4.20-5.40) H Hemoglobin 20.2 G/DL (12.0-16.0) *H Hematocrit 63.4 % (37.0-47.0) H Mean Corpuscular Volume 95 FL (80-99) Mean Corpuscular Hemoglobin 30.4 PG (27.0-31.0) Mean Corpuscular Hemoglobin Concent 31.9 G/DL (32.0-36.0) L Red Cell Distribution Width 12.4 % (11.6-14.8) Platelet Count 355 K/UL (150-450) Mean Platelet Volume 7.2 FL (6.5-10.1) Neutrophils (%) (Auto) 84.3 % (45.0-75.0) H Lymphocytes (%) (Auto) 10.2 % (20.0-45.0) L Monocytes (%) (Auto) 4.0 % (1.0-10.0) Eosinophils (%) (Auto) 0.1 % (0.0-3.0) Basophils (%) (Auto) 1.4 % (0.0-2.0) Sodium Level 136 MMOL/L (136-145) Potassium Level 3.8 MMOL/L (3.5-5.1) Chloride Level 100 MMOL/L (98-107) Carbon Dioxide Level 25 MMOL/L (21-32) Anion Gap 11 mmol/L (5-15) Blood Urea Nitrogen 26 mg/dL (7-18) H Creatinine 1.9 MG/DL (0.55-1.30) H Estimat Glomerular Filtration Rate 36.2 mL/min (>60) Glucose Level 135 MG/DL (74-106) H Lactic Acid Level 6.30 mmol/L (0.4-2.0) H 6.00 mmol/L (0.66-2.22) H 7.80 mmol/L (0.4-2.0) H Uric Acid 3.4 MG/DL (2.6-7.2) Calcium Level 9.8 MG/DL (8.5-10.1) Total Bilirubin 0.8 MG/DL (0.2-1.0) Aspartate Amino Transf (AST/SGOT) 17 U/L (15-37) Alanine Aminotransferase (ALT/SGPT) 22 U/L (12-78) Alkaline Phosphatase 130 U/L (46-116) H Total Creatine Kinase 35 U/L (26-308) Creatine Kinase MB < 0.5 NG/ML (0.0-3.6) Creatine Kinase MB Relative Index 1.4 Troponin I 0.000 ng/mL (0.000-0.056) Pro-B-Type Natriuretic Peptide 278 pg/mL (0-125) H Total Protein 9.4 G/DL (6.4-8.2) H Albumin 3.4 G/DL (3.4-5.0) Globulin 6.0 g/dL Albumin/Globulin Ratio 0.6 (1.0-2.7) L Urine Color Yellow Urine Appearance Clear Urine pH 8 (4.5-8.0) Urine Specific [place] 1.010 (1.005-1.035) Urine Protein 1+ (NEGATIVE) H Urine Glucose (UA) Negative (NEGATIVE) Urine Ketones Negative (NEGATIVE) Urine Occult Blood Negative (NEGATIVE) Urine Nitrite Negative (NEGATIVE) Urine Bilirubin Negative (NEGATIVE) Urine Urobilinogen Normal MG/DL (0.0-1.0) Urine Leukocyte Esterase Negative (NEGATIVE) Urine RBC 0 /HPF (0 - 2) Urine WBC 0 /HPF (0 - 2) Urine Squamous Epithelial Cells None /LPF (NONE/OCC) Urine Triple Phosphate Crystals Many /LPF (NONE) H Urine Amorphous Sediment Moderate /LPF (NONE) H Urine Bacteria Few /HPF (NONE) Hepatitis B Surface Antibody Pending Hepatitis C Antibody Pending HIV (1&2) Antibody Rapid Negative (NEGATIVE) Test 01/18/18 15:52 Arterial Blood pH 7.337 (7.350-7.450) Arterial Blood Partial Pressure CO2 27.6 mmHg (35.0-45.0) L Arterial Blood Partial Pressure O2 88.6 mmHg (75.0-100.0) Arterial Blood HCO3 14.5 mmol/L (22.0-26.0) L Arterial Blood Oxygen Saturation 97.2 % (92.0-98.0) Arterial Blood Base Excess -9.5 Benjie Test Positive Height (Feet): 5 Height (Inches): 2.00 Weight (Pounds): 161 Medications Current Medications Medications (Trade) Dose Ordered Sig/Kel Route PRN Reason Start Time Stop Time Status Last Admin Dose Admin Acetaminophen (Tylenol) 650 mg Q4H PRN ORAL FEVER 01/18/18 13:00 02/17/18 08:59 Albuterol/ Ipratropium (Albuterol/ Ipratropium) 3 ml Q4H PRN HHN Shortness of Breath 01/18/18 15:15 01/23/18 07:14 Carvedilol (Coreg) 25 mg EVERY 12 HOURS ORAL 01/18/18 21:00 02/17/18 08:59 Dextrose (Dextrose 50%) 25 ml STAT PRN IV Hypoglycemia 01/19/18 07:15 02/17/18 07:14 Dextrose (Dextrose 50%) 50 ml STAT PRN IV Hypoglycemia 01/19/18 07:30 02/17/18 07:29 Dextrose/Sodium Chloride 1,000 ml @ 50 mls/hr Q20H IV 01/18/18 16:30 02/17/18 16:29 UNV Dextrose/Sodium Chloride 1,000 ml @ 100 mls/hr Q10H IV 01/18/18 14:00 02/17/18 13:59 UNV Heparin Sodium (Porcine) (Heparin 5000 units/ml) 5,000 units EVERY 12 HOURS SUBQ 01/18/18 21:00 02/17/18 08:59 Levetiracetam (Keppra) 1,000 mg BID ORAL 01/18/18 18:00 02/17/18 08:59 Lorazepam (Ativan 2mg/ml 1ml) 2 mg Q2H PRN IV For Anxiety 01/18/18 13:15 01/25/18 07:14 Morphine Sulfate (Morphine Sulfate) 4 mg Q4H PRN IVP Severe Pain (Pain Scale 7-10) 01/18/18 15:15 01/25/18 07:14 Norepinephrine Bitartrate 4 mg/ Dextrose 250 ml @ 0 mls/hr Q24H IV 01/19/18 12:30 02/17/18 12:29 01/18/18 14:53 Norepinephrine Bitartrate 8 mg/ Dextrose 508 ml @ 0 mls/hr Q24H IV 01/18/18 17:00 02/17/18 16:59 Ondansetron HCl (Zofran) 4 mg Q6H PRN IVP Nausea & Vomiting 01/18/18 13:15 02/17/18 07:14 Pantoprazole (Protonix) 40 mg DAILY IV 01/19/18 09:00 02/17/18 08:59 Phenylephrine HCl 50 mg/Dextrose 250 ml @ 0 mls/hr Q24H IV 01/18/18 15:00 02/17/18 14:59 01/18/18 16:19 Phenytoin (Dilantin) 150 mg Q12HR ORAL 01/18/18 21:00 02/17/18 20:59 Polyethylene Glycol (Miralax) 17 gm DAILYPRN PRN ORAL Constipation 01/19/18 07:15 02/17/18 07:14 Vancomycin HCl (Vanco rx to dose) 1 ea DAILY PRN MISC per rx protocol 01/18/18 13:30 02/17/18 13:29 Vancomycin/Sodium Chloride 250 ml @ 166.667 mls/hr Q24H IVPB 01/19/18 05:00 01/24/18 04:59 Assessment/Plan Status: deteriorating Assessment/Plan (1) Acute on chronic respiratory failure (2) Sepsis (3) Anoxic brain injury (4) Feeding by G-tube (5) Tachycardia Critically ill in ICU On levophed/phenylephrine/epinephrine Obtain 2 D echocardiogram NPO Vent Cultures IV Rob Murphy M.D. Jan 18, 2018 17:48
[2018-01-18 18:33] LABS: BILIRUBIN, URINE 1+ (NEGATIVE); COLOR,URINE BROWN; GLUCOSE, URINE (UA) NEGATIVE (NEGATIVE); KETONES,URINE 1+ (NEGATIVE); LEUKOCYTE ESTERASE ,URINE 1+ (NEGATIVE); NITRITE,URINE POSITIVE (NEGATIVE); PH,URINE 7 (4.5-8.0); PROTEIN,URINE 3+ (NEGATIVE); UROBILINOGEN,URINE 1 MG/DL (0.0-1.0)
[2018-01-18 18:40] LABS: APPEARANCE,URINE CLOUDY
--- NOTE | 2018-01-18 20:10 | Consultation ---
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 Patient was in septic shock. In the ED, she had a asystolic arrest which required ACLS with Epi, IV bicarbonate and fortunately return of spontaneous circulation. Admitted to ICU for care and management. During work up found to have distended abdomen, CXR / KUB with concerns of possible intraabdominal process. surgery called to evaluate. patient seen, chart reviewed, patient examined. labs reviewed. Allergies: Coded Allergies: No Known Allergies (Unverified , 01/18/15) Medication History Scheduled Acetylcysteine (Acetylcysteine), 20 % HHN Q6HR, (Reported) Carvedilol (Coreg), 25 MG ORAL EVERY 12 HOURS, (Reported) Carvedilol (Coreg), 25 MG GT EVERY 12 HOURS, (Reported) Chlorhexidine Gluconate (Chlorhexidine Gluconate), 473 ML MM BID, (Reported) Cran/Vitc/Mannose/Inulin/Brom (Uti-Stat Liquid), 30 ML GT BID, (Reported) Docusate Sodium* (Colace*), 100 MG GT TWICE A DAY, (Reported) Enoxaparin* (Lovenox*), 50 MG SUBQ DAILY, (Reported) Esomeprazole Magnesium (Nexium), 40 MG GT DAILY, (Reported) Ferrous Sulfate* (Ferrous Sulfate*), 300 MG GT THREE TIMES A DAY, (Reported) Heparin Sod (Porcine) (Heparin Sodium*), 5,000 UNITS SUBQ DAILY, (Reported) Hydrogen Peroxide (Hydrogen Peroxide), 473 ML MC BID, (Reported) Lactobacillus Acidophilus (Acidophilus), 2 EACH GT TID, (Reported) Levalbuterol Hcl (Xopenex*), 0.63 MG HHN Q6H, (Reported) Levetiracetam (Keppra), 1,000 MG ORAL BID, (Reported) Levetiracetam (Keppra), 1,000 MG GT EVERY 12 HOURS, (Reported) Magnesium Oxide (Mag-Oxide), 400 MG GT BID, (Reported) Multivitamin Liquid* (Multi-Delyn*), 5 ML GT DAILY, (Reported) Omeprazole (Omeprazole), 40 MG GT DAILY, (Reported) Phenytoin Sodium Extended* (Dilantin*), 150 MG GT Q12HR, (Reported) Vit C/Ascorbate Ca/Ascorb Sod (Vitamin C 500 Mg/15 Ml Liquid), 500 MG GT DAILY, (Reported) Zinc Sulfate (Zinc Sulfate*), 220 MG GT DAILY, (Reported) [dilantin susp], 200 MG GT Q12HR, (Reported) [prostat awc], 30 ML GT DAILY, (Reported) Scheduled PRN Acetaminophen (Tylenol), 650 MG GT Q6H PRN for Mild Pain/Temp > 100.5, (Reported ) Albuterol Sulfate* (Albuterol Sulfate Hhn*), 3 ML [id number] Q3HR PRN for Shortness of Breath, (Reported) Dextran 70/Hypromellose (Artificial Tears Eye Drops*), 1 DROP BOTH EYES Q4HR PRN for Dry Eyes, (Reported) Lorazepam* (Ativan*), 2 MG IV Q4H PRN for For Seizures, (Reported) Ondansetron Hcl (Zofran), 8 MG IM Q8HR PRN for Nausea & Vomiting, (Reported) Ondansetron Hcl* (Zofran*), 8 MG ORAL Q6H PRN for Nausea & Vomiting, (Reported) Ondansetron* (Zofran*), 4 MG IM Q8H PRN for Nausea & Vomiting, (Reported) Ondansetron* (Zofran*), 8 MG ORAL Q6H PRN for Nausea & Vomiting, (Reported) Tramadol Hcl* (Ultram*), 50 MG GT DAILY PRN for For Pain, (Reported) [dulcolax sup], 10 MG RC Q12HR PRN for Constipation, (Reported) Miscellaneous Medications Levetiracetam (Keppra), 500 MG IV, (Reported) Patient History Limited by: medical condition History Provided By: Medical Record, PMD Healthcare decision maker Resuscitation status Full Code Advanced Directive on File Past Medical/Surgical History Past Medical/Surgical History: (1) Fever of unknown origin (2) Elevated liver enzymes (3) Heart failure (4) Anemia (5) Leukocytosis (6) Dysphagia (7) Seizure disorder (8) Hypertension (9) Encephalopathy (10) Pneumonia (11) Bradycardia (12) Respiratory failure (13) Tachycardia (14) Sepsis (15) Feeding by G-tube (16) Acute on chronic respiratory failure (17) Renal insufficiency (18) Altered level of consciousness (19) Anoxic brain injury (20) Severe sepsis Review of Systems ROS Narrative cannot obtain given medical condition Physical Exam General Appearance: moderate distress Lines, tubes and drains: central line Neck: trach Respiratory/Chest: on vent Cardiovascular/Chest: tachycardia Abdomen: decreased bowel sounds, distended, hernia, feeding tube Extremities: slow capillary refill Skin Exam: warm/dry Neurologic: unresponsiveness, aphasia Last 24 Hour Vital Signs Date Time Temp Pulse Resp B/P (MAP) Pulse Ox O2 Delivery O2 Flow Rate FiO2 01/18/18 19:48 120 89/47 01/18/18 19:00 113 24 35 01/18/18 17:45 102 21 92/64 Mechanical Ventilator 35 01/18/18 17:30 101 19 82/66 Mechanical Ventilator 35 01/18/18 17:29 102 21 35 01/18/18 17:15 100 22 87/52 Mechanical Ventilator 35 01/18/18 17:10 87/59 01/18/18 17:00 98 19 87/59 Mechanical Ventilator 35 01/18/18 16:45 98 21 78/54 Mechanical Ventilator 35 01/18/18 16:30 98 19 78/48 Mechanical Ventilator 35 01/18/18 16:19 104 57/32 01/18/18 16:15 103 19 57/32 Mechanical Ventilator 35 01/18/18 16:00 35 01/18/18 16:00 103 19 70/53 Mechanical Ventilator 35 01/18/18 15:30 102 19 58/39 Mechanical Ventilator 35 01/18/18 15:05 102 17 35 18 15:00 106 19 58/39 Mechanical Ventilator 35 01/18/18 14:53 68/53 01/18/18 14:30 106 19 58/39 Mechanical Ventilator 35 01/18/18 14:00 101 19 97/25 Mechanical Ventilator 35 01/18/18 13:42 99 18 100 01/18/18 13:30 98 18 67/49 Mechanical Ventilator 99 01/18/18 13:00 101 18 94/39 Mechanical Ventilator 100 01/18/18 12:30 97 18 57/32 Mechanical Ventilator 100 01/18/18 12:22 64/38 01/18/18 12:15 99 18 62/40 Mechanical Ventilator 100 01/18/18 12:00 99.3 98 18 62/44 Mechanical Ventilator 99 99.3 01/18/18 12:00 98 01/18/18 12:00 35 01/18/18 11:55 97 18 57/32 Mechanical Ventilator 100 01/18/18 11:50 99 19 66/34 Mechanical Ventilator 100 01/18/18 11:40 100 20 76/52 100 Mechanical Ventilator 100 01/18/18 11:37 99 20 69/49 100 Mechanical Ventilator 100 01/18/18 11:05 142 24 100 01/18/18 09:29 149 23 100 01/18/18 09:13 149 99/67 01/18/18 08:00 100 01/18/18 08:00 99.1 144 19 99/67 100 Mechanical Ventilator 100 99.1 01/18/18 08:00 143 01/18/18 06:50 98.8 129 16 106/72 93 Mechanical Ventilator 30 98.8 01/18/18 06:44 136 22 100 01/18/18 06:30 101.3 126 19 98/64 100 Trach Collar 15.0 100 101.3 01/18/18 06:22 101.3 126 19 98/64 100 Trach Collar 15.0 100 101.3 01/18/18 06:21 101.3 01/18/18 05:41 101.9 01/18/18 05:30 142 20 90/66 100 Trach Collar 15.0 100 01/18/18 05:22 143 25 100 18 04:30 101.5 145 24 92/62 Trach Collar 15.0 101.5 01/18/18 03:25 101.2 141 18 100/69 100 Trach Collar 15.0 101.2 01/18/18 02:47 101.2 01/18/18 02:30 101.2 130 17 98/67 100 Mechanical Ventilator 15.0 100 101.2 01/18/18 02:17 100.6 01/18/18 02:08 154 25 100 01/18/18 02:01 154 25 Mechanical Ventilator 100 01/18/18 01:50 100.6 131 18 97/74 100 Trach Collar 15.0 100.6 01/18/18 01:35 100.6 132 17 108/87 100 Trach Collar 15.0 100.6 01/18/18 01:25 100.6 156 38 141/107 Non-Rebreather 15.0 100.6 Intake and Output 01/17/18 01/18/18 19:00 07:00 Intake Total 1000 ml Balance 1000 ml Intake IV Total 1000 ml Laboratory Tests Test 01/18/18 01:50 01/18/18 03:45 01/18/18 05:24 01/18/18 15:40 White Blood Count 13.8 K/UL (4.8-10.8) H Red Blood Count 6.65 M/UL (4.20-5.40) H Hemoglobin 20.2 G/DL (12.0-16.0) *H Hematocrit 63.4 % (37.0-47.0) H Mean Corpuscular Volume 95 FL (80-99) Mean Corpuscular Hemoglobin 30.4 PG (27.0-31.0) Mean Corpuscular Hemoglobin Concent 31.9 G/DL (32.0-36.0) L Red Cell Distribution Width 12.4 % (11.6-14.8) Platelet Count 355 K/UL (150-450) Mean Platelet Volume 7.2 FL (6.5-10.1) Neutrophils (%) (Auto) 84.3 % (45.0-75.0) H Lymphocytes (%) (Auto) 10.2 % (20.0-45.0) L Monocytes (%) (Auto) 4.0 % (1.0-10.0) Eosinophils (%) (Auto) 0.1 % (0.0-3.0) Basophils (%) (Auto) 1.4 % (0.0-2.0) Sodium Level 136 MMOL/L (136-145) Potassium Level 3.8 MMOL/L (3.5-5.1) Chloride Level 100 MMOL/L (98-107) Carbon Dioxide Level 25 MMOL/L (21-32) Anion Gap 11 mmol/L (5-15) Blood Urea Nitrogen 26 mg/dL (7-18) H Creatinine 1.9 MG/DL (0.55-1.30) H Estimat Glomerular Filtration Rate 36.2 mL/min (>60) Glucose Level 135 MG/DL (74-106) H Lactic Acid Level 6.30 mmol/L (0.4-2.0) H 6.00 mmol/L (0.66-2.22) H 7.80 mmol/L (0.4-2.0) H Uric Acid 3.4 MG/DL (2.6-7.2) Calcium Level 9.8 MG/DL (8.5-10.1) Total Bilirubin 0.8 MG/DL (0.2-1.0) Aspartate Amino Transf (AST/SGOT) 17 U/L (15-37) Alanine Aminotransferase (ALT/SGPT) 22 U/L (12-78) Alkaline Phosphatase 130 U/L (46-116) H Total Creatine Kinase 35 U/L (26-308) Creatine Kinase MB < 0.5 NG/ML (0.0-3.6) Creatine Kinase MB Relative Index 1.4 Troponin I 0.000 ng/mL (0.000-0.056) Pro-B-Type Natriuretic Peptide 278 pg/mL (0-125) H Total Protein 9.4 G/DL (6.4-8.2) H Albumin 3.4 G/DL (3.4-5.0) Globulin 6.0 g/dL Albumin/Globulin Ratio 0.6 (1.0-2.7) L Urine Color Yellow Urine Appearance Clear Urine pH 8 (4.5-8.0) Urine Specific [place] 1.010 (1.005-1.035) Urine Protein 1+ (NEGATIVE) H Urine Glucose (UA) Negative (NEGATIVE) Urine Ketones Negative (NEGATIVE) Urine Occult Blood Negative (NEGATIVE) Urine Nitrite Negative (NEGATIVE) Urine Bilirubin Negative (NEGATIVE) Urine Urobilinogen Normal MG/DL (0.0-1.0) Urine Leukocyte Esterase Negative (NEGATIVE) Urine RBC 0 /HPF (0 - 2) Urine WBC 0 /HPF (0 - 2) Urine Squamous Epithelial Cells None /LPF (NONE/OCC) Urine Triple Phosphate Crystals Many /LPF (NONE) H Urine Amorphous Sediment Moderate /LPF (NONE) H Urine Bacteria Few /HPF (NONE) Hepatitis B Surface Antibody Pending Hepatitis C Antibody Pending HIV (1&2) Antibody Rapid Negative (NEGATIVE) Test 01/18/18 15:52 01/18/18 17:58 Arterial Blood pH 7.337 (7.350-7.450) Arterial Blood Partial Pressure CO2 27.6 mmHg (35.0-45.0) L Arterial Blood Partial Pressure O2 88.6 mmHg (75.0-100.0) Arterial Blood HCO3 14.5 mmol/L (22.0-26.0) L Arterial Blood Oxygen Saturation 97.2 % (92.0-98.0) Arterial Blood Base Excess -9.5 Benjie Test Positive Urine Color Brown Urine Appearance Cloudy Urine pH 7 (4.5-8.0) Urine Specific [place] 1.010 (1.005-1.035) Urine Protein 3+ (NEGATIVE) H Urine Glucose (UA) Negative (NEGATIVE) Urine Ketones 1+ (NEGATIVE) H Urine Occult Blood 2+ (NEGATIVE) H Urine Nitrite Positive (NEGATIVE) H Urine Bilirubin 1+ (NEGATIVE) H Urine Ictotest Negative Urine Urobilinogen 1 MG/DL (0.0-1.0) H Urine Leukocyte Esterase 1+ (NEGATIVE) H Urine RBC 10-15 /HPF (0 - 2) H Urine WBC 5-10 /HPF (0 - 2) H Urine Squamous Epithelial Cells Moderate /LPF (NONE/OCC) H Urine Calcium Oxalate Crystals Few /LPF (NONE) Urine Uric Acid Crystals Few /LPF (NONE) H Urine Amorphous Sediment Moderate /LPF (NONE) H Urine Bacteria Many /HPF (NONE) H Urine Eosinophils None seen Urine Random Sodium < 20 mmol/L (20-110) L Urine Potassium Timed 65 mmol/L (12-62) H Height (Feet): 5 Height (Inches): 2.00 Weight (Pounds): 161 Medications Current Medications Medications (Trade) Dose Ordered Sig/Kel Route PRN Reason Start Time Stop Time Status Last Admin Dose Admin Acetaminophen (Tylenol) 650 mg Q4H PRN ORAL FEVER 01/18/18 13:00 02/17/18 08:59 Albuterol/ Ipratropium (Albuterol/ Ipratropium) 3 ml Q4H PRN HHN Shortness of Breath 01/18/18 15:15 01/23/18 07:14 Daptomycin 450 mg/ Sodium Chloride 55 ml @ 100 mls/hr Q24HRS IV 01/18/18 20:00 01/25/18 19:59 Dextrose (Dextrose 50%) 25 ml STAT PRN IV Hypoglycemia 01/19/18 07:15 02/17/18 07:14 Dextrose (Dextrose 50%) 50 ml STAT PRN IV Hypoglycemia 01/19/18 07:30 02/17/18 07:29 Dextrose/Sodium Chloride 1,000 ml @ 100 mls/hr Q10H IV 01/18/18 18:30 02/17/18 18:29 01/18/18 17:15 Heparin Sodium (Porcine) (Heparin 5000 units/ml) 5,000 units EVERY 12 HOURS SUBQ 01/18/18 21:00 02/17/18 08:59 Levetiracetam (Keppra) 1,000 mg BID ORAL 01/18/18 18:00 02/17/18 08:59 Lorazepam (Ativan 2mg/ml 1ml) 2 mg Q2H PRN IV For Anxiety 01/18/18 13:15 01/25/18 07:14 Meropenem 1 gm/ Sodium Chloride 55 ml @ 110 mls/hr Q12H IVPB 01/18/18 19:30 01/23/18 19:29 Micafungin Sodium 100 mg/Sodium Chloride 110 ml @ 110 mls/hr Q24H IVPB 01/18/18 20:30 01/25/18 20:29 Morphine Sulfate (Morphine Sulfate) 4 mg Q4H PRN IVP Severe Pain (Pain Scale 7-10) 01/18/18 15:15 01/25/18 07:14 Norepinephrine Bitartrate 8 mg/ Dextrose 508 ml @ 0 mls/hr Q24H IV 01/18/18 17:00 02/17/18 16:59 01/18/18 17:10 Ondansetron HCl (Zofran) 4 mg Q6H PRN IVP Nausea & Vomiting 01/18/18 13:15 02/17/18 07:14 Pantoprazole (Protonix) 40 mg DAILY IV 01/19/18 09:00 02/17/18 08:59 Phenylephrine HCl 50 mg/Dextrose 250 ml @ 0 mls/hr Q24H IV 01/18/18 15:00 02/17/18 14:59 01/18/18 19:48 Phenytoin (Dilantin) 150 mg Q12HR ORAL 01/18/18 21:00 02/17/18 20:59 Polyethylene Glycol (Miralax) 17 gm DAILYPRN PRN ORAL Constipation 01/19/18 07:15 02/17/18 07:14 Assessment/Plan Problem List: (1) Severe sepsis Assessment & Plan: 37F severe sepsis. etiology unknown. labs as above. radiology as above. arrested on arrival in ED and currently in ICU. CXR and KUB reviewed. question of possible free air. on KUB very stool filled bowel with dilated bowels On exam with incarcerated umbilical hernia, cannot determine if chronic, acute, bowel or fat. was able to reduce at bedside fortunately. Need CT scan but unfortunately too unstable for examination Warrants diagnostic laparoscopy vs exploration but given recent events, current condition, and history would not be safe and needs resuscitation first. would unlikely tolerate surgery. needs to respond to resuscitation first. likely very dehydrated given labs. -NPO -IV fluids -IV Abx -trend labs -g tube to suction low intermittent -rock will follow closely. unfortunately very poor prognosis. ICD Codes: A41.9 - Sepsis, unspecified organism; R65.20 - Severe sepsis without septic shock SNOMED: [id number] Status: deteriorating Marshall Ferguson Jan 18, 2018 20:10
[2018-01-18 20:42] LABS: HEMATOCRIT 47.5 % (37.0-47.0); HEMOGLOBIN 15.1 G/DL (12.0-16.0); MEAN CORPUSCULAR VOLUME 93 FL (80-99); PLATELET COUNT 247 K/UL (150-450); RED BLOOD COUNT 5.08 M/UL (4.20-5.40); RED CELL DISTRIBUTION WIDTH 12.1 % (11.6-14.8)
[2018-01-18 20:46] LABS: WHITE BLOOD COUNT 31.6 K/UL (4.8-10.8)
[2018-01-18 20:48] LABS: INR 1.4 (0.9-1.1)
[2018-01-18] MEDS ORDERED: LR 1000ml 1,000 ML IV ONE (20:50)
[2018-01-18 20:51] LABS: ANION GAP 14 mmol/L (5-15); BLOOD UREA NITROGEN 36 mg/dL (7-18); CALCIUM 7.6 MG/DL (8.5-10.1); CARBON DIOXIDE 18 MMOL/L (21-32); CHLORIDE 102 MMOL/L (98-107); CREATININE 2.2 MG/DL (0.55-1.30); POTASSIUM 4.6 MMOL/L (3.5-5.1); SODIUM 134 MMOL/L (136-145)
[2018-01-18] MEDS: Meropenem 1 GM in NS 55 ML IVPB SCH (20:54)
[2018-01-18] MEDS: DAPTOmycin 450 MG in NS 55 ML IV SCH (20:54)
[2018-01-18] MEDS: Micafungin 100 MG in NS 110 ML IVPB SCH (20:55)
[2018-01-18 20:56] LABS: PHOSPHORUS 3.5 MG/DL (2.5-4.9)
[2018-01-18] MEDS ORDERED: Phenytoin Susp 100mg/4ml ORAL SCH (21:00)
[2018-01-18] MEDS ORDERED: Carvedilol 25mg Tab ORAL SCH (21:00)
[2018-01-18] MEDS: Heparin 5000 units/ml inj SUBQ SCH (22:25)
[2018-01-19] VITALS (37 sets, daily range): BP systolic 68–111; BP diastolic 35–84
[2018-01-19] MEDS ORDERED: levETIRAcetam 1,000mg/NS100ml 100 ML IVPB ONE (00:01)
[2018-01-19] MEDS: levETIRAcetam 1,000mg/NS100ml 100 ML IVPB SCH ×3 (00:06→22:31)
[2018-01-19] MEDS: PHENYTOIN IVPB SCH ×3 (00:08→22:31)
[2018-01-19] MEDS: NS IVPB SCH ×3 (00:08→22:31)
[2018-01-19] MEDS: Phenylephrine 50 MG in D5W 245 ML IV SCH ×3 (03:45→16:00)
[2018-01-19] MEDS ORDERED: Vancomycin 750mg/NS 250ml IVPB SCH (05:00)
[2018-01-19 05:57] LABS: HEMATOCRIT 56.5 % (37.0-47.0); MEAN CORPUSCULAR VOLUME 93 FL (80-99); PLATELET COUNT 280 K/UL (150-450); RED BLOOD COUNT 6.05 M/UL (4.20-5.40); RED CELL DISTRIBUTION WIDTH 12.3 % (11.6-14.8)
[2018-01-19 06:15] LABS: ALBUMIN 1.9 G/DL (3.4-5.0); ANION GAP 14 mmol/L (5-15); BLOOD UREA NITROGEN 37 mg/dL (7-18); CARBON DIOXIDE 19 MMOL/L (21-32); CHLORIDE 99 MMOL/L (98-107); CREATININE 1.9 MG/DL (0.55-1.30); PHOSPHORUS 3.3 MG/DL (2.5-4.9); POTASSIUM 4.4 MMOL/L (3.5-5.1); SODIUM 132 MMOL/L (136-145)
[2018-01-19 06:26] LABS: WHITE BLOOD COUNT 40.6 K/UL (4.8-10.8)
[2018-01-19 06:28] LABS: HEMOGLOBIN 18.3 G/DL (12.0-16.0)
[2018-01-19] MEDS: Meropenem 1 GM in NS 55 ML IVPB SCH ×2 (07:04→19:30)
[2018-01-19 07:13] LABS: CREATINE KINASE 1527 U/L (26-308)
[2018-01-19] MEDS ORDERED: Miralax 17gm pkt ORAL PRN (07:15)
[2018-01-19] MEDS ORDERED: Pantoprazole Inj IV SCH (09:00)
[2018-01-19] MEDS: Heparin 5000 units/ml inj SUBQ SCH ×2 (09:29→21:00)
--- NOTE | 2018-01-19 10:28 | Pulmonolgy Critical Care Note ---
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 - Objective Last 24 Hour Vital Signs Date Time Temp Pulse Resp B/P (MAP) Pulse Ox O2 Delivery O2 Flow Rate FiO2 01/19/18 09:30 107/81 01/19/18 09:02 149 27 35 01/19/18 08:00 131 01/19/18 08:00 35 01/19/18 07:28 144 107/81 01/19/18 07:15 139 26 107/81 97 Mechanical Ventilator 35 01/19/18 07:00 135 23 88/59 97 Mechanical Ventilator 35 01/19/18 06:50 136 24 35 01/19/18 06:45 135 24 102/53 97 Mechanical Ventilator 35 01/19/18 06:30 136 16 97/64 96 Mechanical Ventilator 35 01/19/18 06:15 136 12 96/67 96 Mechanical Ventilator 35 01/19/18 06:00 87/67 01/19/18 06:00 135 22 87/67 95 Mechanical Ventilator 35 01/19/18 05:45 134 21 97 Mechanical Ventilator 35 01/19/18 05:30 133 12 86/66 97 Mechanical Ventilator 35 01/19/18 05:15 137 23 94/70 97 Mechanical Ventilator 35 01/19/18 05:00 136 27 111/83 96 Mechanical Ventilator 35 01/19/18 05:00 111/83 01/19/18 04:54 124 23 35 01/19/18 04:45 127 19 101/72 96 Mechanical Ventilator 35 01/19/18 04:30 126 27 92/63 96 Mechanical Ventilator 35 01/19/18 04:15 126 27 91/67 96 Mechanical Ventilator 35 01/19/18 04:00 35 01/19/18 04:00 125 01/19/18 04:00 84/65 7/3/18 04:00 99.4 125 21 84/65 95 Mechanical Ventilator 35 99.4 7/3/18 03:48 127 22 35 7/3/18 03:45 127 23 95/63 95 Mechanical Ventilator 35 7/3/18 03:45 94/56 7/3/18 03:45 133 94/56 7/3/18 03:30 138 25 81/58 95 Mechanical Ventilator 35 7/3/18 03:00 129 22 79/61 97 Mechanical Ventilator 35 7/3/18 03:00 91/62 7/3/18 02:45 125 22 91/62 96 Mechanical Ventilator 35 7/3/18 02:30 130 23 86/66 96 Mechanical Ventilator 35 7/3/18 02:00 135 27 100/75 96 Mechanical Ventilator 35 7/3/18 02:00 100/75 7/3/18 01:54 114 20 35 7/3/18 01:30 130 26 101/84 Mechanical Ventilator 35 7/3/18 01:15 129 25 88/74 Mechanical Ventilator 35 7/3/18 01:04 82/69 7/3/18 01:02 82/59 7/3/18 01:00 126 24 89/62 Mechanical Ventilator 35 7/3/18 00:45 122 23 73/55 Mechanical Ventilator 35 7/3/18 00:30 130 25 92/51 Mechanical Ventilator 35 7/3/18 00:15 100.2 128 25 94/49 Mechanical Ventilator 35 100.2 7/3/18 00:06 83/69 7/3/18 00:00 131 7/3/18 00:00 35 7/3/18 00:00 131 24 83/68 Mechanical Ventilator 35 7/2/18 23:45 138 25 85/66 Mechanical Ventilator 35 7/2/18 23:41 117/52 7/2/18 23:41 149 86/69 7/2/18 23:15 133 29 86/69 Mechanical Ventilator 35 7/2/18 23:01 128 25 35 7/2/18 23:00 86/69 7/2/18 23:00 133 27 117/52 Mechanical Ventilator 35 7/2/18 22:30 127 25 100/63 Mechanical Ventilator 35 7/2/18 22:15 125 24 85/55 Mechanical Ventilator 35 7/2/18 22:00 129 23 87/59 Mechanical Ventilator 35 7/2/18 22:00 83/57 7/2/18 21:45 119 23 83/57 Mechanical Ventilator 35 7/2/18 21:30 115 22 88/55 Mechanical Ventilator 35 7/2/18 21:29 114 22 35 7/2/18 21:15 115 21 92/43 Mechanical Ventilator 35 7/2/18 21:00 100/69 7/2/18 21:00 114 21 100/69 Mechanical Ventilator 35 7/2/18 20:45 111 22 97/69 Mechanical Ventilator 35 7/2/18 20:30 110 21 93/66 Mechanical Ventilator 35 7/2/18 20:15 113 22 80/68 Mechanical Ventilator 35 7/2/18 20:00 35 7/2/18 20:00 98/47 7/2/18 20:00 120 7/2/18 20:00 35 7/2/18 19:48 120 89/47 7/2/18 19:45 120 22 98/47 Mechanical Ventilator 35 7/2/18 19:15 100.9 112 20 74/56 Mechanical Ventilator 35 100.9 7/2/18 19:00 112 21 98/47 Mechanical Ventilator 35 7/2/18 19:00 113 24 35 7/2/18 19:00 84/27 7/2/18 18:30 110 21 98/65 Mechanical Ventilator 35 7/2/18 18:00 99/72 7/2/18 18:00 104 21 99/69 Mechanical Ventilator 35 7/2/18 17:45 102 21 92/64 Mechanical Ventilator 35 7/2/18 17:30 101 19 82/66 Mechanical Ventilator 35 7/2/18 17:29 102 21 35 7/2/18 17:15 100 22 87/52 Mechanical Ventilator 35 7/2/18 17:10 87/59 7/2/18 17:00 98 19 87/59 Mechanical Ventilator 35 7/2/18 16:45 98 21 78/54 Mechanical Ventilator 35 7/2/18 16:30 57/32 7/2/18 16:30 98 19 78/48 Mechanical Ventilator 35 7/2/18 16:19 104 57/32 7/2/18 16:15 103 19 57/32 Mechanical Ventilator 35 7/2/18 16:00 102 7/2/18 16:00 35 7/2/18 16:00 103 19 70/53 Mechanical Ventilator 35 01/18/18 15:30 56/48 01/18/18 15:30 102 19 58/39 Mechanical Ventilator 35 01/18/18 15:05 102 17 35 01/18/18 15:00 106 19 58/39 Mechanical Ventilator 35 01/18/18 14:53 68/53 01/18/18 14:30 68/52 01/18/18 14:30 106 19 58/39 Mechanical Ventilator 35 01/18/18 14:00 101 19 97/25 Mechanical Ventilator 35 01/18/18 13:42 99 18 100 01/18/18 13:30 67/49 01/18/18 13:30 98 18 67/49 Mechanical Ventilator 99 01/18/18 13:00 101 18 94/39 Mechanical Ventilator 100 01/18/18 12:30 97 18 57/32 Mechanical Ventilator 100 01/18/18 12:22 64/38 01/18/18 12:15 99 18 62/40 Mechanical Ventilator 100 01/18/18 12:00 99.3 98 18 62/44 Mechanical Ventilator 99 99.3 01/18/18 12:00 98 01/18/18 12:00 35 01/18/18 11:55 97 18 57/32 Mechanical Ventilator 100 01/18/18 11:50 99 19 66/34 Mechanical Ventilator 100 01/18/18 11:40 100 20 76/52 100 Mechanical Ventilator 100 01/18/18 11:37 99 20 69/49 100 Mechanical Ventilator 100 01/18/18 11:05 142 24 100 Status: obtunded Condition: critical HEENT: atraumatic Heart: HR/BP stable Abdomen: soft Extremities: no C/C/E Micro: Microbiology Date/Time Source Procedure Growth Status 01/18/18 01:50 Blood Blood Culture - Preliminary Resulted 01/18/18 01:40 Blood Blood Culture - Preliminary Resulted 01/18/18 17:58 Urine,Clean Catch Urine Culture - Preliminary NO GROWTH Resulted Accucheck: 248 Critical Care - Subjective ROS Limited/Unobtainable: Yes Condition: critical, grave EKG Rhythm: Sinus Rhythm FI02: 35 Vent Support Breath Rate: 12 Vent Support Mode: AC Vent Tidal Volume: 600 Sputum Amount: Large PEEP: 5.0 PIP: 29 I&O: Intake and Output 01/18/18 01/19/18 19:00 07:00 Intake Total 337.5 ml 3506.2 ml Output Total 69 ml 290 ml Balance 268.5 ml 3216.2 ml Intake IV Total 337.5 ml 3506.2 ml Output Urine Total 69 ml 290 ml Labs: Laboratory Tests Test 01/18/18 15:40 01/18/18 15:52 01/18/18 17:58 01/18/18 19:45 Lactic Acid Level 7.80 mmol/L (0.4-2.0) H 7.70 mmol/L (0.4-2.0) H Arterial Blood pH 7.337 (7.350-7.450) Arterial Blood Partial Pressure CO2 27.6 mmHg (35.0-45.0) L Arterial Blood Partial Pressure O2 88.6 mmHg (75.0-100.0) Arterial Blood HCO3 14.5 mmol/L (22.0-26.0) L Arterial Blood Oxygen Saturation 97.2 % (92.0-98.0) Arterial Blood Base Excess -9.5 Benjie Test Positive Urine Color Brown Urine Appearance Cloudy Urine pH 7 (4.5-8.0) Urine Specific [place] 1.010 (1.005-1.035) Urine Protein 3+ (NEGATIVE) H Urine Glucose (UA) Negative (NEGATIVE) Urine Ketones 1+ (NEGATIVE) H Urine Occult Blood 2+ (NEGATIVE) H Urine Nitrite Positive (NEGATIVE) H Urine Bilirubin 1+ (NEGATIVE) H Urine Ictotest Negative Urine Urobilinogen 1 MG/DL (0.0-1.0) H Urine Leukocyte Esterase 1+ (NEGATIVE) H Urine RBC 10-15 /HPF (0 - 2) H Urine WBC 5-10 /HPF (0 - 2) H Urine Squamous Epithelial Cells Moderate /LPF (NONE/OCC) H Urine Calcium Oxalate Crystals Few /LPF (NONE) Urine Uric Acid Crystals Few /LPF (NONE) H Urine Amorphous Sediment Moderate /LPF (NONE) H Urine Bacteria Many /HPF (NONE) H Urine Eosinophils None seen Urine Random Sodium < 20 mmol/L (20-110) L Urine Potassium Timed 65 mmol/L (12-62) H Test 01/18/18 19:55 01/19/18 05:16 01/19/18 09:50 White Blood Count 31.6 K/UL (4.8-10.8) #*H 40.6 K/UL (4.8-10.8) *H Red Blood Count 5.08 M/UL (4.20-5.40) 6.05 M/UL (4.20-5.40) H Hemoglobin 15.1 G/DL (12.0-16.0) 18.3 G/DL (12.0-16.0) *H Hematocrit 47.5 % (37.0-47.0) H 56.5 % (37.0-47.0) H Mean Corpuscular Volume 93 FL (80-99) 93 FL (80-99) Mean Corpuscular Hemoglobin 29.7 PG (27.0-31.0) 30.2 PG (27.0-31.0) Mean Corpuscular Hemoglobin Concent 31.8 G/DL (32.0-36.0) L 32.3 G/DL (32.0-36.0) Red Cell Distribution Width 12.1 % (11.6-14.8) 12.3 % (11.6-14.8) Platelet Count 247 K/UL (150-450) 280 K/UL (150-450) Mean Platelet Volume 7.1 FL (6.5-10.1) 7.3 FL (6.5-10.1) Neutrophils (%) (Auto) % (45.0-75.0) % (45.0-75.0) Lymphocytes (%) (Auto) % (20.0-45.0) % (20.0-45.0) Monocytes (%) (Auto) % (1.0-10.0) % (1.0-10.0) Eosinophils (%) (Auto) % (0.0-3.0) % (0.0-3.0) Basophils (%) (Auto) % (0.0-2.0) % (0.0-2.0) Differential Total Cells Counted 100 100 Neutrophils % (Manual) 56 % (45-75) 37 % (45-75) L Lymphocytes % (Manual) 14 % (20-45) L 6 % (20-45) L Monocytes % (Manual) 5 % (1-10) 6 % (1-10) Eosinophils % (Manual) 0 % (0-3) 1 % (0-3) Basophils % (Manual) 0 % (0-2) 1 % (0-2) Band Neutrophils 25 % (0-8) H 45 % (0-8) H Platelet Estimate Adequate Adequate Platelet Morphology Normal Normal Red Blood Cell Morphology Normal Normal Prothrombin Time 14.5 SEC (9.30-11.50) H Prothromb Time International Ratio 1.4 (0.9-1.1) H Activated Partial Thromboplast Time 39 SEC (23-33) H Sodium Level 134 MMOL/L (136-145) L 132 MMOL/L (136-145) L Potassium Level 4.6 MMOL/L (3.5-5.1) 4.4 MMOL/L (3.5-5.1) Chloride Level 102 MMOL/L (98-107) 99 MMOL/L (98-107) Carbon Dioxide Level 18 MMOL/L (21-32) L 19 MMOL/L (21-32) L Anion Gap 14 mmol/L (5-15) 14 mmol/L (5-15) Blood Urea Nitrogen 36 mg/dL (7-18) H 37 mg/dL (7-18) H Creatinine 2.2 MG/DL (0.55-1.30) H 1.9 MG/DL (0.55-1.30) H Estimat Glomerular Filtration Rate 30.5 mL/min (>60) 36.2 mL/min (>60) Glucose Level 315 MG/DL (74-106) #H 188 MG/DL (74-106) #H Calcium Level 7.6 MG/DL (8.5-10.1) #L 8.0 MG/DL (8.5-10.1) L Phosphorus Level 3.5 MG/DL (2.5-4.9) 3.3 MG/DL (2.5-4.9) Magnesium Level 2.6 MG/DL (1.8-2.4) H Troponin I 0.070 ng/mL (0.000-0.056) Metamyelocytes % 4 % (0-0) H Lactic Acid Level 7.40 mmol/L (0.4-2.0) H Pending Total Creatine Kinase 1527 U/L (26-308) H Albumin 1.9 G/DL (3.4-5.0) L Jak2 [id number] Mutation Detection Pending JAK2 [id number] Mutation Background Pending JAK2 [id number] Reviewed By Pending Yanick Hernandez MD Jan 19, 2018 10:28
--- NOTE | 2018-01-19 11:14 | Infectious Diseases Prog Note ---
Assessment/Plan Assessment/Plan Assessment: Septic shock- 2ry to bacteremia and suspect intrabdominal source- r/o bowel perforation, had incarcerated umbilical hernia which was able to be reduced at bedside. -No obvious pathology on lungs on CXR. r/o UTI -Bcx 2/4 GPRs (r/o clostridium, listeria), 1/4 GPC -u/a initial normal; repeat WBC 10-15, nit +, leuk +1 but sq cells mod ( contaminated); ucx NTD -sp cx p ?bowel perforation -suggestive of free air on CXR -CXR: Hyperlucent the upper abdomen. Free air not excluded. Correlate clinically. Distended bowel also noted. No acute disease within the chest. Tracheostomy Fever/leukocytosis Bradycardia> Asystolic cardiac arrest Acute on chronic respirator failure Lactic acidosis; improving INDIRA HTN seizure disorder anoxic brain injury 2014 chronic resp failure trach/vent dependant 2014 s/p G-tube 2015 SNF resident Plan: -Continue Daptomycin, Meropenem and Micafungin #2 for septic shock and for bowel emmanuel coverage -01/18 SP IV Vancomycin #1, Cefepime x1, Azithromycin x1, Zosyn x1 -f/u KUB and CXR -f/u cx -Monitor CBC/BMP, temperatures -Trend WBC, lactic acid -Too unstable for CT abd/p -Surgery following -critically ill, poor px Thank you for this consultation. Will continue to follow along with you. Discussed with RN. Discussed with Dr Ferguson. Subjective Allergies: Coded Allergies: No Known Allergies (Unverified , 01/18/15) Subjective remains maxed on 2 pressors Objective Vital Signs Last 24 Hour Vital Signs Date Time Temp Pulse Resp B/P (MAP) Pulse Ox O2 Delivery O2 Flow Rate FiO2 01/19/18 09:30 107/01/19/18 09:02 149 27 35 01/19/18 08:00 131 01/19/18 08:00 35 01/19/18 07:28 144 107/81 01/19/18 07:15 139 26 107/81 97 Mechanical Ventilator 35 01/19/18 07:00 135 23 88/59 97 Mechanical Ventilator 35 01/19/18 06:50 136 24 35 01/19/18 06:45 135 24 102/53 97 Mechanical Ventilator 35 01/19/18 06:30 136 16 97/64 96 Mechanical Ventilator 35 7/3/18 06:15 136 12 96/67 96 Mechanical Ventilator 35 7/3/18 06:00 87/67 7/3/18 06:00 135 22 87/67 95 Mechanical Ventilator 35 7/3/18 05:45 134 21 97 Mechanical Ventilator 35 7/3/18 05:30 133 12 86/66 97 Mechanical Ventilator 35 7/3/18 05:15 137 23 94/70 97 Mechanical Ventilator 35 7/3/18 05:00 136 27 111/83 96 Mechanical Ventilator 35 7/3/18 05:00 111/83 7/3/18 04:54 124 23 35 7/3/18 04:45 127 19 101/72 96 Mechanical Ventilator 35 7/3/18 04:30 126 27 92/63 96 Mechanical Ventilator 35 7/3/18 04:15 126 27 91/67 96 Mechanical Ventilator 35 7/3/18 04:00 35 7/3/18 04:00 125 7/3/18 04:00 84/65 7/3/18 04:00 99.4 125 21 84/65 95 Mechanical Ventilator 35 99.4 7/3/18 03:48 127 22 35 7/3/18 03:45 127 23 95/63 95 Mechanical Ventilator 35 7/3/18 03:45 94/56 7/3/18 03:45 133 94/56 7/3/18 03:30 138 25 81/58 95 Mechanical Ventilator 35 7/3/18 03:00 129 22 79/61 97 Mechanical Ventilator 35 7/3/18 03:00 91/62 7/3/18 02:45 125 22 91/62 96 Mechanical Ventilator 35 7/3/18 02:30 130 23 86/66 96 Mechanical Ventilator 35 7/3/18 02:00 135 27 100/75 96 Mechanical Ventilator 35 7/3/18 02:00 100/75 7/3/18 01:54 114 20 35 7/3/18 01:30 130 26 101/84 Mechanical Ventilator 35 7/3/18 01:15 129 25 88/74 Mechanical Ventilator 35 7/3/18 01:04 82/69 7/3/18 01:02 82/59 7/3/18 01:00 126 24 89/62 Mechanical Ventilator 35 7/3/18 00:45 122 23 73/55 Mechanical Ventilator 35 7/3/18 00:30 130 25 92/51 Mechanical Ventilator 35 7/3/18 00:15 100.2 128 25 94/49 Mechanical Ventilator 35 100.2 7/3/18 00:06 83/69 7/3/18 00:00 131 7/3/18 00:00 35 7/3/18 00:00 131 24 83/68 Mechanical Ventilator 35 7/2/18 23:45 138 25 85/66 Mechanical Ventilator 35 7/2/18 23:41 117/52 7/2/18 23:41 149 86/69 7/2/18 23:15 133 29 86/69 Mechanical Ventilator 35 7/2/18 23:01 128 25 35 7/2/18 23:00 86/69 7/2/18 23:00 133 27 117/52 Mechanical Ventilator 35 7/2/18 22:30 127 25 100/63 Mechanical Ventilator 35 7/2/18 22:15 125 24 85/55 Mechanical Ventilator 35 7/2/18 22:00 129 23 87/59 Mechanical Ventilator 35 7/2/18 22:00 83/57 7/2/18 21:45 119 23 83/57 Mechanical Ventilator 35 7/2/18 21:30 115 22 88/55 Mechanical Ventilator 35 7/2/18 21:29 114 22 35 7/2/18 21:15 115 21 92/43 Mechanical Ventilator 35 7/2/18 21:00 100/69 7/2/18 21:00 114 21 100/69 Mechanical Ventilator 35 7/2/18 20:45 111 22 97/69 Mechanical Ventilator 35 7/2/18 20:30 110 21 93/66 Mechanical Ventilator 35 7/2/18 20:15 113 22 80/68 Mechanical Ventilator 35 7/2/18 20:00 35 7/2/18 20:00 98/47 7/2/18 20:00 120 7/2/18 20:00 35 7/2/18 19:48 120 89/47 7/2/18 19:45 120 22 98/47 Mechanical Ventilator 35 7/2/18 19:15 100.9 112 20 74/56 Mechanical Ventilator 35 100.9 7/2/18 19:00 112 21 98/47 Mechanical Ventilator 35 7/2/18 19:00 113 24 35 7/2/18 19:00 84/27 7/2/18 18:30 110 21 98/65 Mechanical Ventilator 35 7/2/18 18:00 99/72 7/2/18 18:00 104 21 99/69 Mechanical Ventilator 35 7/2/18 17:45 102 21 92/64 Mechanical Ventilator 35 7/2/18 17:30 101 19 82/66 Mechanical Ventilator 35 7/2/18 17:29 102 21 35 7/2/18 17:15 100 22 87/52 Mechanical Ventilator 35 7/2/18 17:10 87/59 7/2/18 17:00 98 19 87/59 Mechanical Ventilator 35 7/2/18 16:45 98 21 78/54 Mechanical Ventilator 35 7/2/18 16:30 57/32 7/2/18 16:30 98 19 78/48 Mechanical Ventilator 35 7/2/18 16:19 104 57/32 7/2/18 16:15 103 19 57/32 Mechanical Ventilator 35 7/2/18 16:00 102 7/2/18 16:00 35 7/2/18 16:00 103 19 70/53 Mechanical Ventilator 35 7/2/18 15:30 56/48 7/2/18 15:30 102 19 58/39 Mechanical Ventilator 35 7/2/18 15:05 102 17 35 7/2/18 15:00 106 19 58/39 Mechanical Ventilator 35 7/2/18 14:53 68/53 7/2/18 14:30 68/52 7/2/18 14:30 106 19 58/39 Mechanical Ventilator 35 7/2/18 14:00 101 19 97/25 Mechanical Ventilator 35 7/2/18 13:42 99 18 100 7/2/18 13:30 67/49 7/2/18 13:30 98 18 67/49 Mechanical Ventilator 99 7/2/18 13:00 101 18 94/39 Mechanical Ventilator 100 7/2/18 12:30 97 18 57/32 Mechanical Ventilator 100 7/2/18 12:22 64/38 7/2/18 12:15 99 18 62/40 Mechanical Ventilator 100 7/2/18 12:00 99.3 98 18 62/44 Mechanical Ventilator 99 99.3 7/2/18 12:00 98 7/2/18 12:00 35 7/2/18 11:55 97 18 57/32 Mechanical Ventilator 100 7/2/18 11:50 99 19 66/34 Mechanical Ventilator 100 7/2/18 11:40 100 20 76/52 100 Mechanical Ventilator 100 01/18/18 11:37 99 20 69/49 100 Mechanical Ventilator 100 01/18/18 11:05 142 24 100 Height (Feet): 5 Height (Inches): 2.00 Weight (Pounds): 195 Objective General Appearance: chronically ill HEENT: normocephalic, bilateral eye PERRL Neck: tracheotomy Respiratory: crackles, rhonchi Cardiovascular : tachycardia Gastrointestinal: Gtube present; significant abd distention with some grimacing upon palpation; diminished to absent bowel sounds Genitourinary: rock in place Musculoskeletal: other - contracted extremities Neurologic: other - nonverbal Skin: no rash or cellulitis Microbiology Date/Time Source Procedure Growth Status 01/18/18 01:50 Blood Blood Culture - Preliminary Resulted 01/18/18 01:40 Blood Blood Culture - Preliminary Resulted 01/18/18 17:58 Urine,Clean Catch Urine Culture - Preliminary NO GROWTH Resulted Laboratory Tests Test 01/18/18 15:40 01/18/18 15:52 01/18/18 17:58 01/18/18 19:45 Lactic Acid Level 7.80 mmol/L (0.4-2.0) H 7.70 mmol/L (0.4-2.0) H Arterial Blood pH 7.337 (7.350-7.450) Arterial Blood Partial Pressure CO2 27.6 mmHg (35.0-45.0) L Arterial Blood Partial Pressure O2 88.6 mmHg (75.0-100.0) Arterial Blood HCO3 14.5 mmol/L (22.0-26.0) L Arterial Blood Oxygen Saturation 97.2 % (92.0-98.0) Arterial Blood Base Excess -9.5 Benjie Test Positive Urine Color Brown Urine Appearance Cloudy Urine pH 7 (4.5-8.0) Urine Specific [place] 1.010 (1.005-1.035) Urine Protein 3+ (NEGATIVE) H Urine Glucose (UA) Negative (NEGATIVE) Urine Ketones 1+ (NEGATIVE) H Urine Occult Blood 2+ (NEGATIVE) H Urine Nitrite Positive (NEGATIVE) H Urine Bilirubin 1+ (NEGATIVE) H Urine Ictotest Negative Urine Urobilinogen 1 MG/DL (0.0-1.0) H Urine Leukocyte Esterase 1+ (NEGATIVE) H Urine RBC 10-15 /HPF (0 - 2) H Urine WBC 5-10 /HPF (0 - 2) H Urine Squamous Epithelial Cells Moderate /LPF (NONE/OCC) H Urine Calcium Oxalate Crystals Few /LPF (NONE) Urine Uric Acid Crystals Few /LPF (NONE) H Urine Amorphous Sediment Moderate /LPF (NONE) H Urine Bacteria Many /HPF (NONE) H Urine Eosinophils None seen Urine Random Sodium < 20 mmol/L (20-110) L Urine Potassium Timed 65 mmol/L (12-62) H Test 01/18/18 19:55 01/19/18 05:16 01/19/18 09:50 White Blood Count 31.6 K/UL (4.8-10.8) #*H 40.6 K/UL (4.8-10.8) *H Red Blood Count 5.08 M/UL (4.20-5.40) 6.05 M/UL (4.20-5.40) H Hemoglobin 15.1 G/DL (12.0-16.0) 18.3 G/DL (12.0-16.0) *H Hematocrit 47.5 % (37.0-47.0) H 56.5 % (37.0-47.0) H Mean Corpuscular Volume 93 FL (80-99) 93 FL (80-99) Mean Corpuscular Hemoglobin 29.7 PG (27.0-31.0) 30.2 PG (27.0-31.0) Mean Corpuscular Hemoglobin Concent 31.8 G/DL (32.0-36.0) L 32.3 G/DL (32.0-36.0) Red Cell Distribution Width 12.1 % (11.6-14.8) 12.3 % (11.6-14.8) Platelet Count 247 K/UL (150-450) 280 K/UL (150-450) Mean Platelet Volume 7.1 FL (6.5-10.1) 7.3 FL (6.5-10.1) Neutrophils (%) (Auto) % (45.0-75.0) % (45.0-75.0) Lymphocytes (%) (Auto) % (20.0-45.0) % (20.0-45.0) Monocytes (%) (Auto) % (1.0-10.0) % (1.0-10.0) Eosinophils (%) (Auto) % (0.0-3.0) % (0.0-3.0) Basophils (%) (Auto) % (0.0-2.0) % (0.0-2.0) Differential Total Cells Counted 100 100 Neutrophils % (Manual) 56 % (45-75) 37 % (45-75) L Lymphocytes % (Manual) 14 % (20-45) L 6 % (20-45) L Monocytes % (Manual) 5 % (1-10) 6 % (1-10) Eosinophils % (Manual) 0 % (0-3) 1 % (0-3) Basophils % (Manual) 0 % (0-2) 1 % (0-2) Band Neutrophils 25 % (0-8) H 45 % (0-8) H Platelet Estimate Adequate Adequate Platelet Morphology Normal Normal Red Blood Cell Morphology Normal Normal Prothrombin Time 14.5 SEC (9.30-11.50) H Prothromb Time International Ratio 1.4 (0.9-1.1) H Activated Partial Thromboplast Time 39 SEC (23-33) H Sodium Level 134 MMOL/L (136-145) L 132 MMOL/L (136-145) L Potassium Level 4.6 MMOL/L (3.5-5.1) 4.4 MMOL/L (3.5-5.1) Chloride Level 102 MMOL/L (98-107) 99 MMOL/L (98-107) Carbon Dioxide Level 18 MMOL/L (21-32) L 19 MMOL/L (21-32) L Anion Gap 14 mmol/L (5-15) 14 mmol/L (5-15) Blood Urea Nitrogen 36 mg/dL (7-18) H 37 mg/dL (7-18) H Creatinine 2.2 MG/DL (0.55-1.30) H 1.9 MG/DL (0.55-1.30) H Estimat Glomerular Filtration Rate 30.5 mL/min (>60) 36.2 mL/min (>60) Glucose Level 315 MG/DL (74-106) #H 188 MG/DL (74-106) #H Calcium Level 7.6 MG/DL (8.5-10.1) #L 8.0 MG/DL (8.5-10.1) L Phosphorus Level 3.5 MG/DL (2.5-4.9) 3.3 MG/DL (2.5-4.9) Magnesium Level 2.6 MG/DL (1.8-2.4) H Troponin I 0.070 ng/mL (0.000-0.056) Metamyelocytes % 4 % (0-0) H Lactic Acid Level 7.40 mmol/L (0.4-2.0) H 3.40 mmol/L (0.66-2.22) H Total Creatine Kinase 1527 U/L (26-308) H Albumin 1.9 G/DL (3.4-5.0) L Jak2 V617F Mutation Detection Pending JAK2 V617F Mutation Background Pending JAK2 V617F Reviewed By Pending Current Medications Medications (Trade) Dose Ordered Sig/Kel Route PRN Reason Start Time Stop Time Status Last Admin Dose Admin Acetaminophen (Tylenol) 650 mg Q4H PRN ORAL FEVER 01/18/18 13:00 02/17/18 08:59 Albuterol/ Ipratropium (Albuterol/ Ipratropium) 3 ml Q4H PRN HHN Shortness of Breath 01/18/18 15:15 01/23/18 07:14 Daptomycin 450 mg/ Sodium Chloride 55 ml @ 100 mls/hr Q24HRS IV 01/18/18 20:00 01/25/18 19:59 01/18/18 20:54 Dextrose (Dextrose 50%) 25 ml STAT PRN IV Hypoglycemia 01/19/18 07:15 02/17/18 07:14 Dextrose (Dextrose 50%) 50 ml STAT PRN IV Hypoglycemia 01/19/18 07:30 02/17/18 07:29 Dextrose/Sodium Chloride 1,000 ml @ 100 mls/hr Q10H IV 01/18/18 18:30 02/17/18 18:29 01/18/18 21:31 Heparin Sodium (Porcine) (Heparin 5000 units/ml) 5,000 units EVERY 12 HOURS SUBQ 01/18/18 21:00 02/17/18 08:59 01/19/18 09:29 Levetiracetam 100 ml @ 400 mls/hr Q12HR IVPB 01/18/18 22:30 02/17/18 22:29 01/19/18 09:28 Lorazepam (Ativan 2mg/ml 1ml) 2 mg Q2H PRN IV For Anxiety 01/18/18 13:15 01/25/18 07:14 Meropenem 1 gm/ Sodium Chloride 55 ml @ 110 mls/hr Q12H IVPB 01/18/18 19:30 01/23/18 19:29 01/19/18 07:04 Micafungin Sodium 100 mg/Sodium Chloride 110 ml @ 110 mls/hr Q24H IVPB 01/18/18 20:30 01/25/18 20:29 01/18/18 20:55 Morphine Sulfate (Morphine Sulfate) 4 mg Q4H PRN IVP Severe Pain (Pain Scale 7-10) 01/18/18 15:15 01/25/18 07:14 Norepinephrine Bitartrate 8 mg/ Dextrose 508 ml @ 0 mls/hr Q24H IV 01/18/18 17:00 02/17/18 16:59 01/19/18 09:30 Ondansetron HCl (Zofran) 4 mg Q6H PRN IVP Nausea & Vomiting 01/18/18 13:15 02/17/18 07:14 Pantoprazole (Protonix) 40 mg DAILY IV 01/19/18 09:00 02/17/18 08:59 01/19/18 09:29 Phenylephrine HCl 50 mg/Dextrose 250 ml @ 0 mls/hr Q24H IV 01/18/18 15:00 02/17/18 14:59 01/19/18 07:28 Phenytoin 150 mg/ Sodium Chloride 58 ml @ 114 mls/hr EVERY 12 HOURS IVPB 01/18/18 22:30 02/17/18 22:29 01/19/18 09:28 Polyethylene Glycol (Miralax) 17 gm DAILYPRN PRN ORAL Constipation 01/19/18 07:15 02/17/18 07:14 Amelia Bah M.D. Jan 19, 2018 11:14
--- NOTE | 2018-01-19 11:22 | Diagnostic Imaging Report ---
Indication: Chest and abdominal pain Comparison: 02:26 A single view chest radiograph was obtained. Findings: Current study performed 18:32 Precordial leads obscure the central part of the chest. Lung volumes are low. The right hemidiaphragm is slightly elevated. There is minimal atelectasis present at the lung bases. There is no airspace disease or evidence of pulmonary vascular congestion/interstitial edema. Tracheostomy is noted. Heart size remains normal. IMPRESSION: Minimal atelectasis at the lung bases. No significant change compared to the earlier film done about 16 hours earlier.
--- NOTE | 2018-01-19 11:27 | Diagnostic Imaging Report ---
Indication: Abdominal pain Comparison: None Single supine view of the abdomen obtained Findings: There is moderate distention of colon within the mid abdomen. One distended loop appears to be the sigmoid colon which is redundant and dilated. There is no rectal gas. There is an apparent double wall sign in the left upper quadrant which is sign of free air. Suggest confirmation with CT. Moderate stool retained within the right hemicolon. There is a right femoral central venous catheter projected over the iliac region. Gil catheter is noted. IMPRESSION: Distended colon. Consider sigmoid volvulus, distal obstruction versus colonic ileus. Question of free air not evaluated well on a single supine view. Recommend further evaluation with contrast-enhanced CT of abdomen and pelvis. [facility] has provided a written preliminary report @18:56, January 18, 2018.. Their findings are largely concordant with this report.
--- NOTE | 2018-01-19 11:41 | Consultation ---
Consult Note Consult Note consult for oliguria and renal failure 37-year-old female presents ED for evaluation. [facility] in [facility] for respiratory distress, tachycardia. Febrile in triage. History of anoxic brain injury. On trach/ventilator with G-tube. Upon arrival patient unable to provide any additional history at this time. History of anoxic brain injury. No other aggravating or relieving factors. Denies any other associated symptoms Allergies: Past Medical History: HTN, seizures, other - anoxic brain injury Past Surgical History: other - trach/vent Hx Hypertension: Yes Hx Gastrointestinal Problems: Yes - g-tube Hx Neurological Problems: Yes - Anoxic brain dammage Hx Seizures: Yes Hx Aphasia: Yes examined- discussed with RN data reviewed Assessment/Plan Septic shock on pressors, hence Oliguria and acute renal failure Others: (1) Acute on chronic respiratory failure (2) Sepsis (3) Anoxic brain injury (4) Feeding by G-tube (5) Tachycardia Hydrate Antibiotics monitor renal parameters LORRIE PERAZA Jan 19, 2018 11:41
[2018-01-19] MEDS: D5NS 1,000 ML IV SCH ×2 (12:00→19:45)
[2018-01-19 12:14] LABS: APPEARANCE,URINE TURBID; BILIRUBIN, URINE 2+ (NEGATIVE); COLOR,URINE YELLOW; GLUCOSE, URINE (UA) 1+ (NEGATIVE); KETONES,URINE 1+ (NEGATIVE); LEUKOCYTE ESTERASE ,URINE 1+ (NEGATIVE); NITRITE,URINE POSITIVE (NEGATIVE); PH,URINE 6.5 (4.5-8.0); PROTEIN,URINE 3+ (NEGATIVE); UROBILINOGEN,URINE 1 MG/DL (0.0-1.0)
[2018-01-19] MEDS ORDERED: Sodium Bicarbonate 50ml Carp ONE (13:08)
--- NOTE | 2018-01-19 14:08 | Diagnostic Imaging Report ---
APPROVED REPORT CPT Code: 52360 Present Symptoms Comments: Hx of CFV line BILATERAL: Imaging reveals a patent deep venous system bilaterally. There is no evidence of thrombus within the femoral, popliteal or tibial segments. The greater saphenous veins are also within normal limits. Doppler indicates normal spontaneous flow within these segments. Right common femoral vein was not well visualized. NOTE: Technically very difficult and limited study due to BLE contracture of hip and knee.
--- NOTE | 2018-01-19 14:57 | Cardiology Progress Note ---
Assessment/Plan Status: deteriorating Assessment/Plan (1) Acute on chronic respiratory failure (2) Sepsis (3) Anoxic brain injury (4) Feeding by G-tube (5) Tachycardia Critically ill in ICU on max pressors On levophed/phenylephrine/epinephrine Antibiotics per ID, follow cultures Plan for ex lap due to rising WBC. Echo with mild moderate systolic dysfunction globally, no valvular issues Continue pulmonary toilet Subjective Cardiovascular: Reports: no symptoms Respiratory: Reports: no symptoms Gastrointestinal/Abdominal: Reports: no symptoms Genitourinary: Reports: no symptoms Subjective Patient on max pressors, MAPs 60s, very tachycardic due to sepsis, on Abx, unresponsive, on vent Objective Last 24 Hour Vital Signs Date Time Temp Pulse Resp B/P (MAP) Pulse Ox O2 Delivery O2 Flow Rate FiO2 01/19/18 13:24 142 30 35 01/19/18 10:48 140 27 35 01/19/18 09:30 107/81 01/19/18 09:02 149 27 35 01/19/18 08:00 131 01/19/18 08:00 35 01/19/18 07:28 144 107/81 7 07:15 139 26 107/81 97 Mechanical Ventilator 35 01/19/18 07:00 135 23 88/59 97 Mechanical Ventilator 35 01/19/18 06:50 136 24 35 01/19/18 06:45 135 24 102/53 97 Mechanical Ventilator 35 01/19/18 06:30 136 16 97/64 96 Mechanical Ventilator 35 01/19/18 06:15 136 12 96/67 96 Mechanical Ventilator 35 01/19/18 06:00 87/67 01/19/18 06:00 135 22 87/67 95 Mechanical Ventilator 35 01/19/18 05:45 134 21 97 Mechanical Ventilator 35 01/19/18 05:30 133 12 86/66 97 Mechanical Ventilator 35 18 05:15 137 23 94/70 97 Mechanical Ventilator 35 18 05:00 136 27 111/83 96 Mechanical Ventilator 35 18 05:00 111/83 01/19/18 04:54 124 23 35 718 04:45 127 19 101/72 96 Mechanical Ventilator 35 01/19/18 04:30 126 27 92/63 96 Mechanical Ventilator 35 18 04:15 126 27 91/67 96 Mechanical Ventilator 35 7/3/18 04:00 35 7/3/18 04:00 125 7/3/18 04:00 84/65 7/3/18 04:00 99.4 125 21 84/65 95 Mechanical Ventilator 35 99.4 7/3/18 03:48 127 22 35 7/3/18 03:45 127 23 95/63 95 Mechanical Ventilator 35 7/3/18 03:45 94/56 7/3/18 03:45 133 94/56 7/3/18 03:30 138 25 81/58 95 Mechanical Ventilator 35 7/3/18 03:00 129 22 79/61 97 Mechanical Ventilator 35 7/3/18 03:00 91/62 7/3/18 02:45 125 22 91/62 96 Mechanical Ventilator 35 7/3/18 02:30 130 23 86/66 96 Mechanical Ventilator 35 7/3/18 02:00 135 27 100/75 96 Mechanical Ventilator 35 7/3/18 02:00 100/75 7/3/18 01:54 114 20 35 7/3/18 01:30 130 26 101/84 Mechanical Ventilator 35 7/3/18 01:15 129 25 88/74 Mechanical Ventilator 35 7/3/18 01:04 82/69 7/3/18 01:02 82/59 7/3/18 01:00 126 24 89/62 Mechanical Ventilator 35 7/3/18 00:45 122 23 73/55 Mechanical Ventilator 35 7/3/18 00:30 130 25 92/51 Mechanical Ventilator 35 7/3/18 00:15 100.2 128 25 94/49 Mechanical Ventilator 35 100.2 7/3/18 00:06 83/69 7/3/18 00:00 131 7/3/18 00:00 35 7/3/18 00:00 131 24 83/68 Mechanical Ventilator 35 7/2/18 23:45 138 25 85/66 Mechanical Ventilator 35 7/2/18 23:41 117/52 7/2/18 23:41 149 86/69 7/2/18 23:15 133 29 86/69 Mechanical Ventilator 35 7/2/18 23:01 128 25 35 7/2/18 23:00 86/69 7/2/18 23:00 133 27 117/52 Mechanical Ventilator 35 7/2/18 22:30 127 25 100/63 Mechanical Ventilator 35 7/2/18 22:15 125 24 85/55 Mechanical Ventilator 35 7/2/18 22:00 129 23 87/59 Mechanical Ventilator 35 7/2/18 22:00 83/57 7/2/18 21:45 119 23 83/57 Mechanical Ventilator 35 7/2/18 21:30 115 22 88/55 Mechanical Ventilator 35 7/2/18 21:29 114 22 35 7/2/18 21:15 115 21 92/43 Mechanical Ventilator 35 7/2/18 21:00 100/69 7/2/18 21:00 114 21 100/69 Mechanical Ventilator 35 7/2/18 20:45 111 22 97/69 Mechanical Ventilator 35 7/2/18 20:30 110 21 93/66 Mechanical Ventilator 35 7/2/18 20:15 113 22 80/68 Mechanical Ventilator 35 7/2/18 20:00 35 7/2/18 20:00 98/47 7/2/18 20:00 120 7/2/18 20:00 35 7/2/18 19:48 120 89/47 7/2/18 19:45 120 22 98/47 Mechanical Ventilator 35 7/2/18 19:15 100.9 112 20 74/56 Mechanical Ventilator 35 100.9 7/2/18 19:00 112 21 98/47 Mechanical Ventilator 35 7/2/18 19:00 113 24 35 7/2/18 19:00 84/27 7/2/18 18:30 110 21 98/65 Mechanical Ventilator 35 7/2/18 18:00 99/72 7/2/18 18:00 104 21 99/69 Mechanical Ventilator 35 7/2/18 17:45 102 21 92/64 Mechanical Ventilator 35 7/2/18 17:30 101 19 82/66 Mechanical Ventilator 35 7/2/18 17:29 102 21 35 7/2/18 17:15 100 22 87/52 Mechanical Ventilator 35 7/2/18 17:10 87/59 7/2/18 17:00 98 19 87/59 Mechanical Ventilator 35 7/2/18 16:45 98 21 78/54 Mechanical Ventilator 35 7/2/18 16:30 57/32 7/2/18 16:30 98 19 78/48 Mechanical Ventilator 35 7/2/18 16:19 104 57/32 7/2/18 16:15 103 19 57/32 Mechanical Ventilator 35 7/2/18 16:00 102 01/18/18 16:00 35 01/18/18 16:00 103 19 70/53 Mechanical Ventilator 35 01/18/18 15:30 56/48 01/18/18 15:30 102 19 58/39 Mechanical Ventilator 35 01/18/18 15:05 102 17 35 01/18/18 15:00 106 19 58/39 Mechanical Ventilator 35 General Appearance: on vent EENT: PERRL/EOMI Neck: non-tender Rhythm: ST Cardiovascular: normal peripheral pulses Respiratory/Chest: chest wall non-tender Abdomen: no mass Extremities: normal range of motion Neurologic: no Babinski, no pronator, motor weakness, sensory deficit Intake and Output 01/18/18 01/19/18 19:00 07:00 Intake Total 337.5 ml 3506.2 ml Output Total 69 ml 290 ml Balance 268.5 ml 3216.2 ml Intake IV Total 337.5 ml 3506.2 ml Output Urine Total 69 ml 290 ml Laboratory Tests Test 01/18/18 15:40 01/18/18 15:52 01/18/18 17:58 01/18/18 19:45 Lactic Acid Level 7.80 mmol/L (0.4-2.0) H 7.70 mmol/L (0.4-2.0) H Arterial Blood pH 7.337 (7.350-7.450) Arterial Blood Partial Pressure CO2 27.6 mmHg (35.0-45.0) L Arterial Blood Partial Pressure O2 88.6 mmHg (75.0-100.0) Arterial Blood HCO3 14.5 mmol/L (22.0-26.0) L Arterial Blood Oxygen Saturation 97.2 % (92.0-98.0) Arterial Blood Base Excess -9.5 Benjie Test Positive Urine Color Brown Urine Appearance Cloudy Urine pH 7 (4.5-8.0) Urine Specific [place] 1.010 (1.005-1.035) Urine Protein 3+ (NEGATIVE) H Urine Glucose (UA) Negative (NEGATIVE) Urine Ketones 1+ (NEGATIVE) H Urine Occult Blood 2+ (NEGATIVE) H Urine Nitrite Positive (NEGATIVE) H Urine Bilirubin 1+ (NEGATIVE) H Urine Ictotest Negative Urine Urobilinogen 1 MG/DL (0.0-1.0) H Urine Leukocyte Esterase 1+ (NEGATIVE) H Urine RBC 10-15 /HPF (0 - 2) H Urine WBC 5-10 /HPF (0 - 2) H Urine Squamous Epithelial Cells Moderate /LPF (NONE/OCC) H Urine Calcium Oxalate Crystals Few /LPF (NONE) Urine Uric Acid Crystals Few /LPF (NONE) H Urine Amorphous Sediment Moderate /LPF (NONE) H Urine Bacteria Many /HPF (NONE) H Urine Eosinophils None seen Urine Random Sodium < 20 mmol/L (20-110) L Urine Potassium Timed 65 mmol/L (12-62) H Test 01/18/18 19:55 01/19/18 05:16 01/19/18 09:50 01/19/18 10:45 White Blood Count 31.6 K/UL (4.8-10.8) #*H 40.6 K/UL (4.8-10.8) *H Red Blood Count 5.08 M/UL (4.20-5.40) 6.05 M/UL (4.20-5.40) H Hemoglobin 15.1 G/DL (12.0-16.0) 18.3 G/DL (12.0-16.0) *H Hematocrit 47.5 % (37.0-47.0) H 56.5 % (37.0-47.0) H Mean Corpuscular Volume 93 FL (80-99) 93 FL (80-99) Mean Corpuscular Hemoglobin 29.7 PG (27.0-31.0) 30.2 PG (27.0-31.0) Mean Corpuscular Hemoglobin Concent 31.8 G/DL (32.0-36.0) L 32.3 G/DL (32.0-36.0) Red Cell Distribution Width 12.1 % (11.6-14.8) 12.3 % (11.6-14.8) Platelet Count 247 K/UL (150-450) 280 K/UL (150-450) Mean Platelet Volume 7.1 FL (6.5-10.1) 7.3 FL (6.5-10.1) Neutrophils (%) (Auto) % (45.0-75.0) % (45.0-75.0) Lymphocytes (%) (Auto) % (20.0-45.0) % (20.0-45.0) Monocytes (%) (Auto) % (1.0-10.0) % (1.0-10.0) Eosinophils (%) (Auto) % (0.0-3.0) % (0.0-3.0) Basophils (%) (Auto) % (0.0-2.0) % (0.0-2.0) Differential Total Cells Counted 100 100 Neutrophils % (Manual) 56 % (45-75) 37 % (45-75) L Lymphocytes % (Manual) 14 % (20-45) L 6 % (20-45) L Monocytes % (Manual) 5 % (1-10) 6 % (1-10) Eosinophils % (Manual) 0 % (0-3) 1 % (0-3) Basophils % (Manual) 0 % (0-2) 1 % (0-2) Band Neutrophils 25 % (0-8) H 45 % (0-8) H Platelet Estimate Adequate Adequate Platelet Morphology Normal Normal Red Blood Cell Morphology Normal Normal Prothrombin Time 14.5 SEC (9.30-11.50) H Prothromb Time International Ratio 1.4 (0.9-1.1) H Activated Partial Thromboplast Time 39 SEC (23-33) H Sodium Level 134 MMOL/L (136-145) L 132 MMOL/L (136-145) L Potassium Level 4.6 MMOL/L (3.5-5.1) 4.4 MMOL/L (3.5-5.1) Chloride Level 102 MMOL/L (98-107) 99 MMOL/L (98-107) Carbon Dioxide Level 18 MMOL/L (21-32) L 19 MMOL/L (21-32) L Anion Gap 14 mmol/L (5-15) 14 mmol/L (5-15) Blood Urea Nitrogen 36 mg/dL (7-18) H 37 mg/dL (7-18) H Creatinine 2.2 MG/DL (0.55-1.30) H 1.9 MG/DL (0.55-1.30) H Estimat Glomerular Filtration Rate 30.5 mL/min (>60) 36.2 mL/min (>60) Glucose Level 315 MG/DL (74-106) #H 188 MG/DL (74-106) #H Calcium Level 7.6 MG/DL (8.5-10.1) #L 8.0 MG/DL (8.5-10.1) L Phosphorus Level 3.5 MG/DL (2.5-4.9) 3.3 MG/DL (2.5-4.9) Magnesium Level 2.6 MG/DL (1.8-2.4) H Troponin I 0.070 ng/mL (0.000-0.056) Metamyelocytes % 4 % (0-0) H Lactic Acid Level 7.40 mmol/L (0.4-2.0) H 3.40 mmol/L (0.66-2.22) H Total Creatine Kinase 1527 U/L (26-308) H Albumin 1.9 G/DL (3.4-5.0) L Jak2 V617F Mutation Detection Pending JAK2 V617F Mutation Background Pending JAK2 V617F Reviewed By Pending Uric Acid 4.3 MG/DL (2.6-7.2) C-Reactive Protein, Quantitative 25.3 mg/dL (0.00-0.90) H Urine Color Yellow Urine Appearance Turbid Urine pH 6.5 (4.5-8.0) Urine Specific [place] 1.010 (1.005-1.035) Urine Protein 3+ (NEGATIVE) H Urine Glucose (UA) 1+ (NEGATIVE) H Urine Ketones 1+ (NEGATIVE) H Urine Occult Blood 5+ (NEGATIVE) H Urine Nitrite Positive (NEGATIVE) H Urine Bilirubin 2+ (NEGATIVE) H Urine Ictotest Positive Urine Urobilinogen 1 MG/DL (0.0-1.0) H Urine Leukocyte Esterase 1+ (NEGATIVE) H Urine RBC 5-10 /HPF (0 - 2) H Urine WBC 2-4 /HPF (0 - 2) Urine Squamous Epithelial Cells Few /LPF (NONE/OCC) Urine Calcium Oxalate Crystals Moderate /LPF (NONE) Urine Triple Phosphate Crystals Few /LPF (NONE) H Urine Bacteria Few /HPF (NONE) Urine Granular Casts 2-4 /LPF (NONE) H Microbiology Date/Time Source Procedure Growth Status 01/18/18 01:50 Blood Blood Culture - Preliminary Resulted 01/18/18 01:40 Blood Blood Culture - Preliminary Resulted 01/18/18 17:58 Urine,Clean Catch Urine Culture - Preliminary NO GROWTH Resulted Rob Cote M.D. Jan 19, 2018 14:57
--- NOTE | 2018-01-19 16:52 | History & Physical ---
History and Physical History & Physicial Dictated for Int Med-Dr Morel no. [id number]. ICU Adrian Porter MD Jan 19, 2018 16:52
--- NOTE | 2018-01-19 18:08 | Anethesia Preoperative Eval ---
Anesthesia Pre-op PMH/ROS General Date of Evaluation: Jan 19, 2018 Time of Evaluation: 19:38 Anesthesiologist: Elliot ASA Score: ASA 4 Mallampati Score Class I : Soft palate, uvula, fauces, pillars visible Class II: Soft palate, uvula, fauces visible Class III: Soft palate, base of uvula visible Class IV: Only hard plate visible Mallampati Classification: Class III Surgeon: Phyllis Diagnosis: Bowel Obstruction Surgical Procedure: Relieve Bowel Obstruction Anesthesia History: none Family History: no anesthesia problems Allergies: Coded Allergies: No Known Allergies (Unverified , 01/18/15) Medications: see eMAR Past Medical History Cardiovascular: Reports: CAD, [place], arrhythmia, other - PVD Pulmonary: Reports: COPD, other - Tracheostomy/Vent Dept Gastrointestinal/Genitourinary: Reports: GERD Neurologic/Psychiatric: Reports: other - Anoxic Brain Damage Hematology/Immune: Reports: anemia, other Anesthesia Pre-op Phys. Exam Physician Exam Last Vital Signs Date Time Temp Pulse Resp B/P (MAP) Pulse Ox O2 Delivery O2 Flow Rate FiO2 01/19/18 17:18 141 27 35 01/19/18 16:00 107/81 01/19/18 07:15 97 Mechanical Ventilator 01/19/18 04:00 99.4 99.4 01/18/18 06:30 15.0 Constitutional: other Neurologic: other Cardiovascular: RRR Respiratory: other Gastrointestinal: other Airway Exam Mallampati Score: Class III MO: limited Neck: Tracheostomy ROM: limited Teeth: missing, intact Anesthesia Pre-op A/P Labs Hematology Test 01/18/18 19:55 01/19/18 05:16 White Blood Count 31.6 K/UL (4.8-10.8) #*H 40.6 K/UL (4.8-10.8) *H Red Blood Count 5.08 M/UL (4.20-5.40) 6.05 M/UL (4.20-5.40) H Hemoglobin 15.1 G/DL (12.0-16.0) 18.3 G/DL (12.0-16.0) *H Hematocrit 47.5 % (37.0-47.0) H 56.5 % (37.0-47.0) H Mean Corpuscular Volume 93 FL (80-99) 93 FL (80-99) Mean Corpuscular Hemoglobin 29.7 PG (27.0-31.0) 30.2 PG (27.0-31.0) Mean Corpuscular Hemoglobin Concent 31.8 G/DL (32.0-36.0) L 32.3 G/DL (32.0-36.0) Red Cell Distribution Width 12.1 % (11.6-14.8) 12.3 % (11.6-14.8) Platelet Count 247 K/UL (150-450) 280 K/UL (150-450) Mean Platelet Volume 7.1 FL (6.5-10.1) 7.3 FL (6.5-10.1) Neutrophils (%) (Auto) % (45.0-75.0) % (45.0-75.0) Lymphocytes (%) (Auto) % (20.0-45.0) % (20.0-45.0) Monocytes (%) (Auto) % (1.0-10.0) % (1.0-10.0) Eosinophils (%) (Auto) % (0.0-3.0) % (0.0-3.0) Basophils (%) (Auto) % (0.0-2.0) % (0.0-2.0) Differential Total Cells Counted 100 100 Neutrophils % (Manual) 56 % (45-75) 37 % (45-75) L Lymphocytes % (Manual) 14 % (20-45) L 6 % (20-45) L Monocytes % (Manual) 5 % (1-10) 6 % (1-10) Eosinophils % (Manual) 0 % (0-3) 1 % (0-3) Basophils % (Manual) 0 % (0-2) 1 % (0-2) Band Neutrophils 25 % (0-8) H 45 % (0-8) H Platelet Estimate Adequate Adequate Platelet Morphology Normal Normal Red Blood Cell Morphology Normal Normal Metamyelocytes % 4 % (0-0) H Coagulation Test 01/18/18 19:55 01/19/18 17:15 Prothrombin Time 14.5 SEC (9.30-11.50) H Pending Prothromb Time International Ratio 1.4 (0.9-1.1) H Pending Activated Partial Thromboplast Time 39 SEC (23-33) H Chemistry Test 01/18/18 19:45 01/18/18 19:55 01/19/18 05:16 01/19/18 09:50 Lactic Acid Level 7.70 mmol/L (0.4-2.0) H 7.40 mmol/L (0.4-2.0) H 3.40 mmol/L (0.66-2.22) H Sodium Level 134 MMOL/L (136-145) L 132 MMOL/L (136-145) L Potassium Level 4.6 MMOL/L (3.5-5.1) 4.4 MMOL/L (3.5-5.1) Chloride Level 102 MMOL/L (98-107) 99 MMOL/L (98-107) Carbon Dioxide Level 18 MMOL/L (21-32) L 19 MMOL/L (21-32) L Anion Gap 14 mmol/L (5-15) 14 mmol/L (5-15) Blood Urea Nitrogen 36 mg/dL (-18) H 37 mg/dL (7-18) H Creatinine 2.2 MG/DL (0.55-1.30) H 1.9 MG/DL (0.55-1.30) H Estimat Glomerular Filtration Rate 30.5 mL/min (>60) 36.2 mL/min (>60) Glucose Level 315 MG/DL (74-106) #H 188 MG/DL (74-106) #H Calcium Level 7.6 MG/DL (8.5-10.1) #L 8.0 MG/DL (8.5-10.1) L Phosphorus Level 3.5 MG/DL (2.5-4.9) 3.3 MG/DL (2.5-4.9) Magnesium Level 2.6 MG/DL (1.8-2.4) H Troponin I 0.070 ng/mL (0.000-0.056) Total Creatine Kinase 1527 U/L (26-308) H Albumin 1.9 G/DL (3.4-5.0) L Uric Acid 4.3 MG/DL (2.6-7.2) C-Reactive Protein, Quantitative 25.3 mg/dL (0.00-0.90) H Risk Assessment & Plan Assessment: ASA 4 Plan: GA Status Change Before Surgery: No Pre-Antibiotics Drug: Already On Given Within 1 Hr of Incision: Yes Cordell Zarate MD Jan 19, 2018 18:08
[2018-01-19 18:11] LABS: INR 2.4 (0.9-1.1)
[2018-01-19] MEDS ORDERED: NeoSporin Gu Irrig 1ml Amp IRRIG ONE (19:13)
[2018-01-19] MEDS ORDERED: Lidocaine 1% 10mg/ml/Epi 0.005mg/ml 30ml vial INJ ONE (19:13)
[2018-01-19] MEDS ORDERED: Bacitracin 50000 Units Vial ONE (19:13)
--- NOTE | 2018-01-19 19:33 | Pre-Procedure Note/Attestation ---
Pre-Procedure Note/Attestation Complete Prior to Procedure Planned Procedure: not applicable Procedure Narrative: exploratory laparotomy, possible bowel resection, possible ostomy, possible open abdomen for re-exploration/second look Indications for Procedure Pre-Operative Diagnosis: severe sepsis, abdominal distention, worsening leukocytosis, incarcerated ventral hernia Attestation I attest that I discussed the nature of the procedure; its benefits; risks and complications; and alternatives (and the risks and benefits of such alternatives ), prior to the procedure, with the patient (or the patient's legal sales representative metals). I attest that, if there was a reasonable possibility of needing a blood transfusion, the patient (or the patient's legal sales representative metals) was given the [place] Department [employer] Health Services standardized written summary, pursuant to the [place] Blood Safety Act ([place] Health and Safety Code # 1645, as amended). I attest that I re-evaluated the patient just prior to the surgery and that there has been no change in the patient's H&P, except as documented below: Marshall Ferguson Jan 19, 2018 19:33
[2018-01-19] MEDS: DAPTOmycin 450 MG in NS 55 ML IV SCH (20:00)
--- NOTE | 2018-01-19 20:00 | History and Physical Report ---
DATE OF ADMISSION: 01/18/2018 CHIEF COMPLAINT: The patient is a 37-year-old, vent-dependent respiratory failure female, who presents with chief complaint of altered mental status. HISTORY OF PRESENT ILLNESS: The patient is a resident of [facility]. The patient herself is unable to contribute to the history and physical, as she is chronically vent-dependent. According to staff at [facility], the patient was more altered than usual. The patient was not responsive. The patient was transferred to [facility]. The patient is status post cardiac arrest in the emergency room. The patient is admitted to the intensive care unit. The patient is admitted for altered mental status and now status post cardiac arrest. PAST MEDICAL HISTORY: Significant for: 1. Vent-dependent respiratory failure. 2. Anoxic brain injury in 2014 secondary to cardiac arrest. 3. Dysphagia. 4. Hypertension. 5. History of seizure disorder. PAST SURGICAL HISTORY: Significant for: 1. Tracheostomy. 2. Percutaneous endoscopic gastrostomy placement. CURRENT MEDICATIONS: 1. Albuterol nebulized q.4 h. p.r.n. 2. Dilantin 200 mg per G-tube twice daily. 3. Keppra 1000 mg per G-tube twice daily. 4. Magnesium oxide 400 mg per G-tube twice daily. 5. Multivitamin per G-tube daily. 6. Omeprazole 40 mg per G-tube daily. 7. Tylenol 650 mg per G-tube q.4 h. p.r.n. ALLERGIES: No known drug allergies. SOCIAL HISTORY: The patient is a resident of [facility]. REVIEW OF SYSTEMS: Unable to assess secondary to the patient's mental status. PHYSICAL EXAMINATION: GENERAL: The patient is a well-developed and well-nourished female, who is unresponsive. VITAL SIGNS: Temperature 100.2 degrees, respirations 25, pulse 128, and blood pressure 94/49. HEENT: Unable to assess. Throat is with tracheostomy tube present. RESPIRATORY: Coarse respiratory breaths bilaterally without wheezes or rales. CARDIOVASCULAR: Tachycardic. Regular rhythm. S1 and S2 normal without murmurs, rubs, or gallops. ABDOMEN: Soft, distended with decreased bowel sounds. No evidence of hepatosplenomegaly. Currently, no rebound or guarding noted. EXTREMITIES: Negative for clubbing, cyanosis, or edema. NEUROLOGIC: Unable to assess. LABORATORY AND DIAGNOSTIC DATA: Laboratory studies, WBC 13.8, hemoglobin 20.2, hematocrit 63.4, and platelets 355,000. Sodium 136, potassium 3.8, chloride 100, CO2 25, BUN 26, creatinine 1.9, and glucose 135. KUB showed dilated colon with possible free air under the diaphragm. ASSESSMENT: This is a 37-year-old female with: 1. Bowel obstruction. 2. Probable perforation. 3. Altered mental status. 4. Status post cardiac arrest. 5. Seizure disorder. 6. Anemia. 7. Dysphagia. 8. Hypertension. 9. Status post anoxic brain injury. TREATMENT: 1. Bowel obstruction/abdominal distention. A General Surgery consultation has been obtained with Dr. Ferguson. We will follow recommendations of Surgery. Surgical intervention is extremely . 2. Status post cardiac arrest. A Cardiology consultation has been obtained with Dr. Cote. 3. Seizure disorder. Continue Keppra as above. 4. Anemia of chronic disease. 5. Dysphagia. The patient has a G-tube present. 6. Hypertension. The patient is currently hypotensive. 7. History of anoxic brain injury. 8. Sacral decubitus ulcer. Adrian Porter M.D. DR: CHAZ JOB#: [id number] CC:
[2018-01-19] MEDS ORDERED: fentaNYL 100 mcg/2 mL IV ONE (20:09)
--- NOTE | 2018-01-19 20:33 | Immediate Post-Op Evaluation ---
Immediate Post-Op Evalulation Immediate Post-Op Evalulation Procedure: Exploratory Laparotomy Date of Evaluation: Jan 19, 2018 Time of Evaluation: 21:53 IV Fluids: 500 NS Blood Products: 0 Estimated Blood Loss: 50 Urinary Output: 100 Blood Pressure Systolic: 98 Blood Pressure Diastolic: 62 Pulse Rate: 123 Respiratory Rate: 20 - Mech Vent O2 Sat by Pulse Oximetry: 99 Temperature (Fahrenheit): 97.9 Pain Score (1-10): 0 Nausea: No Vomiting: No Patient Status: no response, patent, ventilated, none Hydration Status: adequate Drug: On Abxs Given Within 1 Hr of Incision: Yes Cordell Zarate MD Jan 19, 2018 20:33
[2018-01-19] MEDS ORDERED: NS Irrig 1000ml IRRIG ONE (20:40)
[2018-01-19] MEDS ORDERED: Phenylephrine 10mg/ml Vial ONE (20:45)
[2018-01-19] MEDS: Pantoprazole Inj IV SCH (21:00)
--- NOTE | 2018-01-19 21:33 | Brief Operative Note ---
Immediate Post Operative Note Operative Note Pre-op Diagnosis: severe sepsis, abdominal distention, worsening leukocytosis, incarcerated ventral hernia Procedure: exploratory laparotomy, abdominal washout, g tube replacement, open abdomen with abdominal wound vac for planned re-exploration in 48 hrs Post-op Diagnosis: malpositioned gastric feeding tube with intraabdominal peritonitis Surgeon: ac Anesthesiologist: andrey Anesthesia: general Specimen: yes Complications: none Condition: unstable Fluids: see records Estimated Blood Loss: minimal Drains: wound vac Implant(s) used?: No Marshall Ferguson Jan 19, 2018 21:33
[2018-01-19] MEDS: Micafungin 100 MG in NS 110 ML IVPB SCH (22:30)
[2018-01-19] MEDS ORDERED: Vancomycin 1 GM in D5W 275 ML IV SCH ×4 (23:00)
[2018-01-20] VITALS (58 sets, daily range): BP systolic 91–125; BP diastolic 47–73
[2018-01-20] MEDS: Phenylephrine 50 MG in D5W 245 ML IV SCH ×4 (00:04→22:49)
[2018-01-20] MEDS: D5NS 1,000 ML IV SCH ×4 (00:04→20:05)
--- NOTE | 2018-01-20 00:38 | Cardiology Report ---
APPROVED REPORT EKG Measurement Heart [id number] 112P [id number] Sinus tachycardia Nonspecific ST abnormality Abnormal ECG
--- NOTE | 2018-01-20 03:15 | Operative Note - Dictated ---
DATE OF OPERATION: 01/19/2018 PREOPERATIVE DIAGNOSES: 1. Severe sepsis. 2. Abdominal distention. 3. Worsening leukocytosis. 4. Incarcerated ventral hernia. POSTOPERATIVE DIAGNOSES: 1. Malpositioned gastric feeding tube with intra-abdominal peritonitis 2. Incarcerated fat containing ventral hernia. 3. Sigmoid volvulus. OPERATION PERFORMED: 1. Exploratory laparotomy. 2. Abdominal washout. 3. G-tube replacement. 4. Open abdomen with abdominal wound VAC ABThera placement for planned reexploration in 48 hours. 5. Excision of incarcerated ventral hernia. 6. Reduction of sigmoid volvulus. SURGEON: Marshall Ferguson M.D. SERVICE SUPPORT REPRESENTATIVE: None. ANESTHESIOLOGIST: Cordell Zarate M.D. ANESTHESIA: General BARROW WORKER. ESTIMATED BLOOD LOSS: 50 to 100 mL. IV FLUIDS: Please see anesthesia records. COMPLICATIONS: None. CONDITION: Unstable. SPECIMENS: Cultures taken. DRAINS: Abdominal wound VAC placement. IMPLANTS: None. WOUND CLASSIFICATION: Class IV. COUNTS: Sponge and needle count correct x2. ANTIBIOTICS: The patient on scheduled IV antibiotics for acute active inflammatory process. 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 In the emergency room, the patient had a loss of vitals requiring ACLS initiation and was fortunately resuscitated with regaining vital signs. The patient was taken to intensive care unit for care and management, at which time she was found in severe sepsis with worsening leukocytosis and abdominal distention. KUB with significant dilated bowel with likely volvulus and chest x-ray with question of potential free air. On examination, the patient was noted to be on two max dose pressors, hemodynamically unstable, worsening condition and with worsening abdominal distention. Unfortunately, given the patient's condition, further imaging studies cannot be obtained. There was a noted incarcerated ventral hernia as well that was reduced and this patient now improved over 24 hours with resuscitation and the decision was made to go to the operating room for exploration. The risks, benefits, and alternatives to surgery including were discussed in detail with the patient's family and mother who consented to surgery. OPERATIVE NOTE: The patient was taken to the operating room, placed on operating table in supine position directly from the intensive care unit. The patient had severe contractures and bony prominences were well padded and the patient was positioned appropriately given her contractures. 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 The patient had a prior placed G-tube as well in the left upper abdomen. The patient was on scheduled IV antibiotics for acute inflammatory process. Preoperative time-out was taken identifying the patient, procedure, operative staff, and surgical staff. General anesthesia was induced. The abdomen was prepped and draped in standard surgical fashion. A midline incision was made and carried down to the fascia, which was incised carefully. The abdomen was very taut with significant amount of tension. Peak pressures were over 30. Once the peritoneal lining was opened and peritoneum was entered, a significant amount of tube feed colored fluid began to evacuate at high pressure. Flower sucker was used and over 2 liters was evacuated from the abdomen. The remainder of the abdomen was opened from the xiphoid to just above the pubis given the amount of distention noted. There was a large portion of very redundant sigmoid colon noted as well distal to the pelvic promontory. It was compressed distal sigmoid and rectum, proximal and around the splenic flexure, it was decompressed as well with well-formed stool in the portion of the sigmoid from the sacral promontory up to the descending colon where it was significantly dilated with any stool or fluid-filled and just air. The cecum was noted to be distended. The transverse colon was noted to be distended. The splenic and hepatic flexures were fairly decompressed. There was a lot of stool in the hepatic flexure. There was an area of small bowel from the distal mid ileum to the cecum that was not seemed to be incarcerated either underneath all of this, distended bowel in the taut abdomen or potentially prior into the ventral hernia, which was reduced. There was some question of viability in certain portions of the distal ileum. As the procedure progressed, some areas were slowly picking up while others were purple and questionable still, but no perforation or gross necrosis noted. No gross ischemia noted. Once the abdomen was evacuated of 2+ liters of the thin tube feeds, the small bowel was inspected from the ligament of Treitz to the terminal ilium and no other findings other than above were noted. Remainder of the colon was inspected and no other abnormalities noted. At this time, the omentum was pulled. Attention was turned to the stomach and where I was able to notice that the G-tube was malpositioned and into the intraperitoneal cavity and not into the gastric lumen. A very small gastric orifice was identified and a false tract from the skin G-tube down into the abdomen with the G-tube being in the abdomen was noted. At this time, the G-tube was replaced back under direct visualization into the gastric lumen and the balloon was insufflated on the tube. There was still adhesions to the anterior abdominal nguyen. No further buttressing was necessary. A loosely fitted strangulating #0 silk tie was placed around the apex where the peritoneum met the gastric lining to ensure that the balloon would not pull out or further opening of the gastric lumen if any further distention. The spleen and liver looked otherwise normal. The gallbladder looked otherwise normal. In the pelvis, the ovaries, especially the right ovary looked mildly infarcted, but no gross necrosis and again likely from the intra-abdominal pressure causing decreased blood flow. At this time, the abdomen was irrigated with copious amounts of warm normal saline until clear. No overt bleeding was identified. Given these findings, there was high potential that there was a sigmoid volvulus given the amount of redundant sigmoid colon and the distention in that area. No direct volvulus was noted initially, but could potentially have reduced during entry into the abdomen. At this time, given the questionable ischemia of the small bowel and right ovary as well as the intraoperative findings of abdominal peritonitis with free tube feeds and fluid and no perforation, decision was made to leave the abdomen open, placed an ABThera abdominal wound VAC system with planned reexploration in 48 hours. Given the current patient's unstable condition, closing the abdomen under these circumstances would not be safe and there will be concerns for abdominal compartment syndrome and potential worsening sepsis and if the portions of small bowel were questionable that required second-look were not evaluated again. The abdominal ABThera system was applied and placed to suction with good seal. At this time, we began the conclusion of our procedure. All sponge and needle counts were correct. The G-tube was in good positioning upon completion of the procedure and placed in low intermittent suction. At this time, the patient was taken to the intensive care unit in stable condition in hopes of further resuscitation. Marshall Ferguson M.D. DR: ACE JOB#: [id number] CC: [facility]
[2018-01-20 06:27] LABS: HEMATOCRIT 46.1 % (37.0-47.0); MEAN CORPUSCULAR VOLUME 92 FL (80-99); PLATELET COUNT 161 K/UL (150-450); RED BLOOD COUNT 5.03 M/UL (4.20-5.40); RED CELL DISTRIBUTION WIDTH 11.9 % (11.6-14.8)
[2018-01-20 06:30] LABS: WHITE BLOOD COUNT 22.2 K/UL (4.8-10.8)
[2018-01-20 07:18] LABS: ALANINE AMINOTRANSFERASE 855 U/L (12-78); ALBUMIN 1.3 G/DL (3.4-5.0); ALBUMIN/GLOBULIN RATIO 0.4 (1.0-2.7); ALKALINE PHOSPHATASE 81 U/L (46-116); ANION GAP 13 mmol/L (5-15); ASPARTATE AMINO TRANSFERASE 782 U/L (15-37); BILIRUBIN,TOTAL 0.9 MG/DL (0.2-1.0); BLOOD UREA NITROGEN 46 mg/dL (7-18); CARBON DIOXIDE 16 MMOL/L (21-32); CHLORIDE 97 MMOL/L (98-107); CHOLESTEROL < 50 MG/DL (< 200); CREATININE 2.5 MG/DL (0.55-1.30); HDL CHOLESTEROL 9 MG/DL (40-60); POTASSIUM 3.7 MMOL/L (3.5-5.1); SODIUM 126 MMOL/L (136-145); TRIGLYCERIDES 55 MG/DL (30-150)
[2018-01-20 07:39] LABS: AMMONIA 63 umol/L (11-32)
[2018-01-20] MEDS: Meropenem 1 GM in NS 55 ML IVPB SCH ×2 (07:49→18:49)
[2018-01-20 08:00] LABS: CREATINE KINASE 1777 U/L (26-308); GAMMA GLUTAMYL TRANSPEPTIDASE 208 U/L (5-85); PHOSPHORUS 4.7 MG/DL (2.5-4.9)
[2018-01-20] MEDS: levETIRAcetam 1,000mg/NS100ml 100 ML IVPB SCH ×2 (08:41→21:11)
[2018-01-20] MEDS: Pantoprazole Inj IV SCH ×2 (08:46→21:10)
[2018-01-20] MEDS: Heparin 5000 units/ml inj SUBQ SCH ×2 (08:48→21:14)
[2018-01-20] MEDS: PHENYTOIN IVPB SCH ×2 (09:00→21:11)
[2018-01-20] MEDS: NS IVPB SCH ×2 (09:00→21:11)
[2018-01-20] MEDS ORDERED: DAPTOmycin 500 MG in NS 55 ML IV SCH (09:45)
--- NOTE | 2018-01-20 10:04 | Pulmonolgy Critical Care Note ---
Critical Care - Asmt/Plan Problems: (1) Acute on chronic respiratory failure (2) Sepsis (3) Anoxic brain injury (4) Feeding by G-tube (5) Tachycardia Respiratory: monitor respiratory rate, adjust FIO2, CXR Cardiac: continue to monitor HR/BP Renal: F/U I&O, increase IV fluid Infectious Disease: check cultures Gastrointestinal: hold feedings, other - had laparotomy yesterday Endocrine: monitor blood sugar Hematologic: monitor H/H Prophylaxis: Protonix, Heparin Time Spent (Minutes): 40 Notes Reviewed: vehicle window tinter, renal Discussed with: nurses, consultants, transplant case managerrn manager - Objective Last 24 Hour Vital Signs Date Time Temp Pulse Resp B/P (MAP) Pulse Ox O2 Delivery O2 Flow Rate FiO2 01/20/18 08:51 127 26 60 01/20/18 08:00 80 01/20/18 07:25 142 34 80 01/20/18 07:00 106/70 01/20/18 07:00 135 32 106/70 98 Mechanical Ventilator 80 01/20/18 06:30 138 35 102/58 97 Mechanical Ventilator 80 01/20/18 06:00 140 35 115/55 96 Mechanical Ventilator 80 01/20/18 06:00 115/55 01/20/18 05:51 101/52 01/20/18 05:30 134 34 114/58 97 Mechanical Ventilator 80 01/20/18 05:18 133 33 60 01/20/18 05:00 130 31 103/60 100 Mechanical Ventilator 80 01/20/18 05:00 103/60 01/20/18 04:30 132 33 112/65 100 Mechanical Ventilator 80 01/20/18 04:02 133 01/20/18 04:00 121/66 01/20/18 04:00 97.5 131 33 121/66 99 Mechanical Ventilator 80 97.5 01/20/18 04:00 80 01/20/18 03:59 131 83/41 01/20/18 03:30 130 34 110/65 99 Mechanical Ventilator 80 01/20/18 03:11 129 34 80 01/20/18 03:00 130 35 105/67 98 Mechanical Ventilator 80 01/20/18 03:00 93/63 01/20/18 02:30 130 35 96/58 98 Mechanical Ventilator 80 01/20/18 02:00 127 35 107/70 98 Mechanical Ventilator 80 7/4/18 02:00 107/70 7/4/18 01:30 125 35 80 7/4/18 01:30 126 35 91/63 97 Mechanical Ventilator 80 7/4/18 01:09 100/64 7/4/18 01:06 127 7/4/18 01:00 126 33 91/73 96 Mechanical Ventilator 80 7/4/18 01:00 91/73 7/4/18 00:30 123 33 96/59 97 Mechanical Ventilator 80 7/4/18 00:04 120 92/60 7//18 00:00 99.5 120 31 92/60 98 Mechanical Ventilator 80 99.5 7//18 00:00 92/60 7//18 00:00 80 7/3/18 23:30 118 29 101/58 99 Mechanical Ventilator 80 7/3/18 23:11 119 29 50 7/3/18 23:00 120 27 101/48 99 Mechanical Ventilator 80 7/3/18 23:00 101/48 7//18 22:45 121 28 103/58 99 Mechanical Ventilator 80 7/3/18 22:30 120 28 98/52 99 Mechanical Ventilator 80 7/3/18 22:15 121 26 86/44 99 Mechanical Ventilator 80 7/3/18 22:00 121 25 72/35 99 Mechanical Ventilator 80 7/3/18 22:00 78/44 7/3/18 21:56 120 7/3/18 21:45 80 7/3/18 21:45 121 25 68/37 90 Mechanical Ventilator 80 7/3/18 21:37 208.2 123 20 99 7/3/18 21:34 122 17 35 7/3/18 21:30 99.7 125 20 71/38 91 Mechanical Ventilator 35 99.7 7/3/18 20:00 35 7/3/18 19:30 131 32 94/68 95 Mechanical Ventilator 35 7/3/18 19:25 133 33 35 7/3/18 19:15 132 30 99/62 98 Mechanical Ventilator 35 7/3/18 19:00 141 30 71/35 93 Mechanical Ventilator 35 7/3/18 17:18 141 27 35 7/3/18 16:00 119 7/3/18 16:00 119 107/81 7/3/18 16:00 35 7/3/18 15:50 107/81 7/3/18 15:22 140 30 35 01/19/18 13:24 142 30 35 01/19/18 12:00 35 01/19/18 12:00 122 01/19/18 10:48 140 27 35 Status: awake Condition: critical HEENT: atraumatic Lungs: clear Heart: HR/BP stable Abdomen: soft, non-tender Extremities: no C/C/E, edema Micro: Microbiology Date/Time Source Procedure Growth Status 01/18/18 01:50 Blood Blood Culture - Preliminary Staphylococcus Sp Coag Neg Resulted 01/18/18 01:40 Blood Blood Culture - Final Diphtheroids Complete 01/19/18 04:00 Sputum Gram Stain Pending Resulted 01/19/18 04:00 Sputum Culture - Preliminary Gram Negative Bacillus 1 Resulted 01/18/18 17:58 Urine,Clean Catch Urine Culture - Preliminary NO GROWTH AFTER 24 HOURS Resulted Accucheck: 248 Critical Care - Subjective ROS Limited/Unobtainable: No Condition: critical FI02: 60 Vent Support Breath Rate: 12 Vent Support Mode: AC Vent Tidal Volume: 600 Sputum Amount: None PEEP: 5.0 PIP: 39 I&O: Intake and Output 01/19/18 01/20/18 19:00 07:00 Intake Total 1837 ml 3131.0 ml Output Total 20 ml 1405 ml Balance 1817 ml 1726.0 ml Intake IV Total 1837 ml 3131.0 ml Output Urine Total 20 ml 845 ml Stool Total 0 ml Gastric Drainage Total 10 ml Drainage Total 550 ml # Bowel Movements 2 Labs: Laboratory Tests Test 01/19/18 10:45 01/19/18 17:15 01/20/18 05:13 01/20/18 08:20 Urine Color Yellow Urine Appearance Turbid Urine pH 6.5 (4.5-8.0) Urine Specific [place] 1.010 (1.005-1.035) Urine Protein 3+ (NEGATIVE) H Urine Glucose (UA) 1+ (NEGATIVE) H Urine Ketones 1+ (NEGATIVE) H Urine Occult Blood 5+ (NEGATIVE) H Urine Nitrite Positive (NEGATIVE) H Urine Bilirubin 2+ (NEGATIVE) H Urine Ictotest Positive Urine Urobilinogen 1 MG/DL (0.0-1.0) H Urine Leukocyte Esterase 1+ (NEGATIVE) H Urine RBC 5-10 /HPF (0 - 2) H Urine WBC 2-4 /HPF (0 - 2) Urine Squamous Epithelial Cells Few /LPF (NONE/OCC) Urine Calcium Oxalate Crystals Moderate /LPF (NONE) Urine Triple Phosphate Crystals Few /LPF (NONE) H Urine Bacteria Few /HPF (NONE) Urine Granular Casts 2-4 /LPF (NONE) H Prothrombin Time 24.5 SEC (9.30-11.50) H Prothromb Time International Ratio 2.4 (0.9-1.1) H White Blood Count 22.2 K/UL (4.8-10.8) *H Red Blood Count 5.03 M/UL (4.20-5.40) Hemoglobin 15.0 G/DL (12.0-16.0) Hematocrit 46.1 % (37.0-47.0) Mean Corpuscular Volume 92 FL (80-99) Mean Corpuscular Hemoglobin 29.8 PG (27.0-31.0) Mean Corpuscular Hemoglobin Concent 32.5 G/DL (32.0-36.0) Red Cell Distribution Width 11.9 % (11.6-14.8) Platelet Count 161 K/UL (150-450) Mean Platelet Volume 7.5 FL (6.5-10.1) Neutrophils (%) (Auto) % (45.0-75.0) Lymphocytes (%) (Auto) % (20.0-45.0) Monocytes (%) (Auto) % (1.0-10.0) Eosinophils (%) (Auto) % (0.0-3.0) Basophils (%) (Auto) % (0.0-2.0) Differential Total Cells Counted 100 Neutrophils % (Manual) 48 % (45-75) Lymphocytes % (Manual) 8 % (20-45) L Monocytes % (Manual) 3 % (1-10) Eosinophils % (Manual) 1 % (0-3) Basophils % (Manual) 0 % (0-2) Band Neutrophils 40 % (0-8) H Platelet Estimate Adequate Platelet Morphology Normal Red Blood Cell Morphology Polychromasia 1+ Sodium Level 126 MMOL/L (136-145) L Potassium Level 3.7 MMOL/L (3.5-5.1) Chloride Level 97 MMOL/L (98-107) L Carbon Dioxide Level 16 MMOL/L (21-32) L Anion Gap 13 mmol/L (5-15) Blood Urea Nitrogen 46 mg/dL (7-18) H Creatinine 2.5 MG/DL (0.55-1.30) H Estimat Glomerular Filtration Rate 26.4 mL/min (>60) Glucose Level 147 MG/DL (74-106) H Hemoglobin A1c 5.0 % (4.3-6.0) Lactic Acid Level 5.50 mmol/L (0.4-2.0) H Pending Uric Acid 5.8 MG/DL (2.6-7.2) Calcium Level 6.0 MG/DL (8.5-10.1) #L Phosphorus Level 4.7 MG/DL (2.5-4.9) Magnesium Level 1.9 MG/DL (1.8-2.4) Total Bilirubin 0.9 MG/DL (0.2-1.0) Gamma Glutamyl Transpeptidase 208 U/L (5-85) H Aspartate Amino Transf (AST/SGOT) 782 U/L (15-37) H Alanine Aminotransferase (ALT/SGPT) 855 U/L (12-78) H Alkaline Phosphatase 81 U/L (46-116) Ammonia 63 umol/L (11-32) H Total Creatine Kinase 1777 U/L (26-308) H Troponin I 0.030 ng/mL (0.000-0.056) Pro-B-Type Natriuretic Peptide > 29204 pg/mL (0-125) H Total Protein 4.4 G/DL (6.4-8.2) L Albumin 1.3 G/DL (3.4-5.0) L Globulin 3.1 g/dL Albumin/Globulin Ratio 0.4 (1.0-2.7) L Triglycerides Level 55 MG/DL (30-150) Cholesterol Level < 50 MG/DL (< 200) LDL Cholesterol 7 mg/dL (<100) HDL Cholesterol 9 MG/DL (40-60) L Cholesterol/HDL Ratio 5.6 (3.3-4.4) H Lipase 66 U/L (73-393) L Thyroid Stimulating Hormone (TSH) 0.459 uiU/mL (0.358-3.740) Phenytoin (Dilantin) Level 10.6 ug/mL (10-20) Yanick Hernandez MD Jan 20, 2018 10:04
[2018-01-20] MEDS ORDERED: Acetaminophen 650 MG SUPP RECTAL PRN (12:45)
--- NOTE | 2018-01-20 12:51 | Cardiology Progress Note ---
Assessment/Plan Assessment/Plan (1) Acute on chronic respiratory failure (2) Sepsis (3) Anoxic brain injury (4) Feeding by G-tube (5) Tachycardia (6) S/P exploratory laparotomy. G-tube on continuous suctioning. Continue respiratory support G tube to suction, feels held Wound vac care Continue pressors tachycardia due to sepsis, hold beta blockers Echo reviewed Continue broad abx Subjective Cardiovascular: Reports: no symptoms Respiratory: Reports: no symptoms Gastrointestinal/Abdominal: Reports: no symptoms Genitourinary: Reports: no symptoms Subjective Patient on max pressors, MAPs 60s, very tachycardic due to sepsis, on Abx S/P exploratory laparotomy. G-tube on continuous suctioning. Objective Last 24 Hour Vital Signs Date Time Temp Pulse Resp B/P (MAP) Pulse Ox O2 Delivery O2 Flow Rate FiO2 01/20/18 12:39 130 30 60 01/20/18 12:05 133 105/60 01/20/18 12:04 105/60 01/20/18 12:00 80 01/20/18 11:30 133 36 105/60 100 Mechanical Ventilator 80 01/20/18 11:24 130 30 60 01/20/18 11:00 124 33 100/55 99 Mechanical Ventilator 80 01/20/18 10:30 127 25 117/61 99 Mechanical Ventilator 80 01/20/18 10:00 127 25 111/61 99 Mechanical Ventilator 80 01/20/18 09:30 129 27 108/62 99 Mechanical Ventilator 80 01/20/18 09:00 131 27 104/61 99 Mechanical Ventilator 80 01/20/18 08:51 127 26 60 01/20/18 08:30 131 27 118/60 100 Mechanical Ventilator 80 01/20/18 08:00 138 01/20/18 08:00 100.7 133 28 108/60 100 Mechanical Ventilator 80 100.7 01/20/18 08:00 80 01/20/18 07:30 137 30 92/48 100 Mechanical Ventilator 80 01/20/18 07:25 142 34 80 7 07:00 106/70 7 07:00 135 32 106/70 98 Mechanical Ventilator 80 01/20/18 06:30 138 35 102/58 97 Mechanical Ventilator 80 01/20/18 06:00 140 35 115/55 96 Mechanical Ventilator 80 01/20/18 06:00 115/55 7/4/18 05:51 101/52 7/4/18 05:30 134 34 114/58 97 Mechanical Ventilator 80 7/4/18 05:18 133 33 60 7/4/18 05:00 130 31 103/60 100 Mechanical Ventilator 80 7/4/18 05:00 103/60 7/4/18 04:30 132 33 112/65 100 Mechanical Ventilator 80 7/4/18 04:02 133 7/4/18 04:00 121/66 7/4/18 04:00 97.5 131 33 121/66 99 Mechanical Ventilator 80 97.5 7/4/18 04:00 80 7/4/18 03:59 131 83/41 7/4/18 03:30 130 34 110/65 99 Mechanical Ventilator 80 7/4/18 03:11 129 34 80 7/4/18 03:00 130 35 105/67 98 Mechanical Ventilator 80 7/4/18 03:00 93/63 7/4/18 02:30 130 35 96/58 98 Mechanical Ventilator 80 7/4/18 02:00 127 35 107/70 98 Mechanical Ventilator 80 7/4/18 02:00 107/70 7/4/18 01:30 125 35 80 7/4/18 01:30 126 35 91/63 97 Mechanical Ventilator 80 7/4/18 01:09 100/64 7/4/18 01:06 127 7/4/18 01:00 126 33 91/73 96 Mechanical Ventilator 80 7/4/18 01:00 91/73 7/4/18 00:30 123 33 96/59 97 Mechanical Ventilator 80 7/4/18 00:04 120 92/60 7/4/18 00:00 99.5 120 31 92/60 98 Mechanical Ventilator 80 99.5 7/4/18 00:00 92/60 7/4/18 00:00 80 7/3/18 23:30 118 29 101/58 99 Mechanical Ventilator 80 7/3/18 23:11 119 29 50 7/3/18 23:00 120 27 101/48 99 Mechanical Ventilator 80 7/3/18 23:00 101/48 7/3/18 22:45 121 28 103/58 99 Mechanical Ventilator 80 7/3/18 22:30 120 28 98/52 99 Mechanical Ventilator 80 7/3/18 22:15 121 26 86/44 99 Mechanical Ventilator 80 7/3/18 22:00 121 25 72/35 99 Mechanical Ventilator 80 01/19/18 22:00 78/44 01/19/18 21:56 120 01/19/18 21:45 80 01/19/18 21:45 121 25 68/37 90 Mechanical Ventilator 80 01/19/18 21:37 208.2 123 20 99 01/19/18 21:34 122 17 35 01/19/18 21:30 99.7 125 20 71/38 91 Mechanical Ventilator 35 99.7 01/19/18 20:00 35 01/19/18 19:30 131 32 94/68 95 Mechanical Ventilator 35 01/19/18 19:25 133 33 35 01/19/18 19:15 132 30 99/62 98 Mechanical Ventilator 35 01/19/18 19:00 141 30 71/35 93 Mechanical Ventilator 35 01/19/18 17:18 141 27 35 01/19/18 16:00 119 01/19/18 16:00 119 107/81 01/19/18 16:00 35 01/19/18 15:50 107/81 01/19/18 15:22 140 30 35 01/19/18 13:24 142 30 35 General Appearance: on vent EENT: normal ENT inspection Neck: non-tender Rhythm: ST Cardiovascular: tachycardia Respiratory/Chest: chest wall non-tender Abdomen: abnormal bowel sounds, distended, other Extremities: normal range of motion Neurologic: unresponsiveness Intake and Output 01/19/18 01/20/18 19:00 07:00 Intake Total 1837 ml 3131.0 ml Output Total 20 ml 1405 ml Balance 1817 ml 1726.0 ml Intake IV Total 1837 ml 3131.0 ml Output Urine Total 20 ml 845 ml Stool Total 0 ml Gastric Drainage Total 10 ml Drainage Total 550 ml # Bowel Movements 2 Laboratory Tests Test 01/19/18 17:15 01/20/18 05:13 01/20/18 08:20 Prothrombin Time 24.5 SEC (9.30-11.50) H Prothromb Time International Ratio 2.4 (0.9-1.1) H White Blood Count 22.2 K/UL (4.8-10.8) *H Red Blood Count 5.03 M/UL (4.20-5.40) Hemoglobin 15.0 G/DL (12.0-16.0) Hematocrit 46.1 % (37.0-47.0) Mean Corpuscular Volume 92 FL (80-99) Mean Corpuscular Hemoglobin 29.8 PG (27.0-31.0) Mean Corpuscular Hemoglobin Concent 32.5 G/DL (32.0-36.0) Red Cell Distribution Width 11.9 % (11.6-14.8) Platelet Count 161 K/UL (150-450) Mean Platelet Volume 7.5 FL (6.5-10.1) Neutrophils (%) (Auto) % (45.0-75.0) Lymphocytes (%) (Auto) % (20.0-45.0) Monocytes (%) (Auto) % (1.0-10.0) Eosinophils (%) (Auto) % (0.0-3.0) Basophils (%) (Auto) % (0.0-2.0) Differential Total Cells Counted 100 Neutrophils % (Manual) 48 % (45-75) Lymphocytes % (Manual) 8 % (20-45) L Monocytes % (Manual) 3 % (1-10) Eosinophils % (Manual) 1 % (0-3) Basophils % (Manual) 0 % (0-2) Band Neutrophils 40 % (0-8) H Platelet Estimate Adequate Platelet Morphology Normal Red Blood Cell Morphology Polychromasia 1+ Sodium Level 126 MMOL/L (136-145) L Potassium Level 3.7 MMOL/L (3.5-5.1) Chloride Level 97 MMOL/L (98-107) L Carbon Dioxide Level 16 MMOL/L (21-32) L Anion Gap 13 mmol/L (5-15) Blood Urea Nitrogen 46 mg/dL (7-18) H Creatinine 2.5 MG/DL (0.55-1.30) H Estimat Glomerular Filtration Rate 26.4 mL/min (>60) Glucose Level 147 MG/DL (74-106) H Hemoglobin A1c 5.0 % (4.3-6.0) Lactic Acid Level 5.50 mmol/L (0.4-2.0) H 2.70 mmol/L (0.66-2.22) H Uric Acid 5.8 MG/DL (2.6-7.2) Calcium Level 6.0 MG/DL (8.5-10.1) #L Phosphorus Level 4.7 MG/DL (2.5-4.9) Magnesium Level 1.9 MG/DL (1.8-2.4) Total Bilirubin 0.9 MG/DL (0.2-1.0) Gamma Glutamyl Transpeptidase 208 U/L (5-85) H Aspartate Amino Transf (AST/SGOT) 782 U/L (15-37) H Alanine Aminotransferase (ALT/SGPT) 855 U/L (12-78) H Alkaline Phosphatase 81 U/L (46-116) Ammonia 63 umol/L (11-32) H Total Creatine Kinase 1777 U/L (26-308) H Troponin I 0.030 ng/mL (0.000-0.056) Pro-B-Type Natriuretic Peptide > 68956 pg/mL (0-125) H Total Protein 4.4 G/DL (6.4-8.2) L Albumin 1.3 G/DL (3.4-5.0) L Globulin 3.1 g/dL Albumin/Globulin Ratio 0.4 (1.0-2.7) L Triglycerides Level 55 MG/DL (30-150) Cholesterol Level < 50 MG/DL (< 200) LDL Cholesterol 7 mg/dL (<100) HDL Cholesterol 9 MG/DL (40-60) L Cholesterol/HDL Ratio 5.6 (3.3-4.4) H Lipase 66 U/L (73-393) L Thyroid Stimulating Hormone (TSH) 0.459 uiU/mL (0.358-3.740) Phenytoin (Dilantin) Level 10.6 ug/mL (10-20) Microbiology Date/Time Source Procedure Growth Status 01/18/18 01:50 Blood Blood Culture - Preliminary Staphylococcus Sp Coag Neg Resulted 01/18/18 01:40 Blood Blood Culture - Final Diphtheroids Complete 01/19/18 04:00 Sputum Gram Stain - Final Resulted 01/19/18 04:00 Sputum Culture - Preliminary Gram Negative Bacillus 1 Resulted 01/18/18 17:58 Urine,Clean Catch Urine Culture - Preliminary NO GROWTH AFTER 24 HOURS Resulted 01/18/18 01:50 Rectal Mucosa VRE Culture - Final Enterococcus Faecalis - Vre Complete Rob Cote M.D. Jan 20, 2018 12:51
--- NOTE | 2018-01-20 13:15 | General Progress Note ---
Progress Note Progress Note Surgery: leukocytosis improved. lactate improved. HD improving. pressor require decreasing. abdominal wound vac intact. urine clearing up. tachycardia improving. prognosis very guarded but somewhat improved. planned re-exploration tomorrow. will evaluate bowel to ensure viability, possible resection, possible ostomy, possible closure vs open abdomen Marshall Ferguson Jan 20, 2018 13:15
--- NOTE | 2018-01-20 13:31 | 48 Hour Post Anesthesia Eval ---
Post Anesthesia Evaluation Procedure: Exploratory Laparotomy Date of Evaluation: Jan 20, 2018 Time of Evaluation: 11:30 Blood Pressure Systolic: 105 0: 60 Pulse Rate: 130 Respiratory Rate: 30 O2 Sat by Pulse Oximetry: 100 Airway: other - tracheostomy, vent dependent Nausea: No Vomiting: No Pain Intensity: 0 Hydration Status: adequate Mental Status/LOC: other - comatose Post-Anesthesia Complications: none Follow-up care needed: N/A Jaymie Boston M.D. Jan 20, 2018 13:31
--- NOTE | 2018-01-20 13:58 | Nephrology Progress Note ---
Assessment/Plan Problem List: (1) Acute on chronic respiratory failure Assessment: ATN (2) Sepsis Assessment: shock (3) Seizure disorder Assessment Septic shock on pressors, hence Oliguria and acute renal failure Others: (1) Acute on chronic respiratory failure (2) Sepsis (3) Anoxic brain injury (4) Feeding by G-tube (5) Tachycardia Plan Hydrate albumin bollous trial hydrocortisone Antibiotics monitor renal parameters Subjective ROS Limited/Unobtainable: Yes Objective Objective Last 24 Hour Vital Signs Date Time Temp Pulse Resp B/P (MAP) Pulse Ox O2 Delivery O2 Flow Rate FiO2 01/20/18 13:31 130 30 100 718 12:39 130 30 60 18 12:05 133 105/60 7 12:04 105/60 7 12:00 80 01/20/18 11:30 133 36 105/60 100 Mechanical Ventilator 80 01/20/18 11:24 130 30 60 7/11/04 11:00 124 33 100/55 99 Mechanical Ventilator 80 01/20/18 10:30 127 25 117/61 99 Mechanical Ventilator 80 01/20/18 10:00 127 25 111/61 99 Mechanical Ventilator 80 01/20/18 09:30 129 27 108/62 99 Mechanical Ventilator 80 01/20/18 09:00 131 27 104/61 99 Mechanical Ventilator 80 01/20/18 08:51 127 26 60 7/18 08:30 131 27 118/60 100 Mechanical Ventilator 80 01/20/18 08:00 138 7//18 08:00 100.7 133 28 108/60 100 Mechanical Ventilator 80 100.7 7 08:00 80 01/20/18 07:30 137 30 92/48 100 Mechanical Ventilator 80 718 07:25 142 34 80 718 07:00 106/70 7//18 07:00 135 32 106/70 98 Mechanical Ventilator 80 718 06:30 138 35 102/58 97 Mechanical Ventilator 80 718 06:00 140 35 115/55 96 Mechanical Ventilator 80 7/18 06:00 115/55 7//18 05:51 101/52 7/11/04 05:30 134 34 114/58 97 Mechanical Ventilator 80 7//18 05:18 133 33 60 7/4/18 05:00 130 31 103/60 100 Mechanical Ventilator 80 7/4/18 05:00 103/60 7/4/18 04:30 132 33 112/65 100 Mechanical Ventilator 80 7/4/18 04:02 133 7/4/18 04:00 121/66 7/4/18 04:00 97.5 131 33 121/66 99 Mechanical Ventilator 80 97.5 7/4/18 04:00 80 7/4/18 03:59 131 83/41 7/4/18 03:30 130 34 110/65 99 Mechanical Ventilator 80 7/4/18 03:11 129 34 80 7/4/18 03:00 130 35 105/67 98 Mechanical Ventilator 80 7/4/18 03:00 93/63 7/4/18 02:30 130 35 96/58 98 Mechanical Ventilator 80 7/4/18 02:00 127 35 107/70 98 Mechanical Ventilator 80 7/4/18 02:00 107/70 7/4/18 01:30 125 35 80 7/4/18 01:30 126 35 91/63 97 Mechanical Ventilator 80 7/4/18 01:09 100/64 7/4/18 01:06 127 7/4/18 01:00 126 33 91/73 96 Mechanical Ventilator 80 7/4/18 01:00 91/73 7/4/18 00:30 123 33 96/59 97 Mechanical Ventilator 80 7/4/18 00:04 120 92/60 7/4/18 00:00 99.5 120 31 92/60 98 Mechanical Ventilator 80 99.5 7/4/18 00:00 92/60 7/4/18 00:00 80 7/3/18 23:30 118 29 101/58 99 Mechanical Ventilator 80 7/3/18 23:11 119 29 50 7/3/18 23:00 120 27 101/48 99 Mechanical Ventilator 80 7/3/18 23:00 101/48 7/3/18 22:45 121 28 103/58 99 Mechanical Ventilator 80 7/3/18 22:30 120 28 98/52 99 Mechanical Ventilator 80 7/3/18 22:15 121 26 86/44 99 Mechanical Ventilator 80 7/3/18 22:00 121 25 72/35 99 Mechanical Ventilator 80 7/3/18 22:00 78/44 7/3/18 21:56 120 7/3/18 21:45 80 01/19/18 21:45 121 25 68/37 90 Mechanical Ventilator 80 01/19/18 21:37 208.2 123 20 99 01/19/18 21:34 122 17 35 01/19/18 21:30 99.7 125 20 71/38 91 Mechanical Ventilator 35 99.7 01/19/18 20:00 35 01/19/18 19:30 131 32 94/68 95 Mechanical Ventilator 35 01/19/18 19:25 133 33 35 01/19/18 19:15 132 30 99/62 98 Mechanical Ventilator 35 01/19/18 19:00 141 30 71/35 93 Mechanical Ventilator 35 01/19/18 17:18 141 27 35 01/19/18 16:00 119 01/19/18 16:00 119 107/81 01/19/18 16:00 35 01/19/18 15:50 107/81 01/19/18 15:22 140 30 35 Intake and Output 01/19/18 01/20/18 19:00 07:00 Intake Total 1837 ml 3131.0 ml Output Total 20 ml 1405 ml Balance 1817 ml 1726.0 ml Intake IV Total 1837 ml 3131.0 ml Output Urine Total 20 ml 845 ml Stool Total 0 ml Gastric Drainage Total 10 ml Drainage Total 550 ml # Bowel Movements 2 Laboratory Tests 01/19/18 17:15: Prothrombin Time 24.5H, Prothromb Time International Ratio 2.4H 01/20/18 05:13: White Blood Count 22.2*H, Red Blood Count 5.03, Hemoglobin 15.0, Hematocrit 46.1 , Mean Corpuscular Volume 92, Mean Corpuscular Hemoglobin 29.8, Mean Corpuscular Hemoglobin Concent 32.5, Red Cell Distribution Width 11.9, Platelet Count 161, Mean Platelet Volume 7.5, Neutrophils (%) (Auto) , Lymphocytes (%) ( Auto) , Monocytes (%) (Auto) , Eosinophils (%) (Auto) , Basophils (%) (Auto) , Differential Total Cells Counted 100, Neutrophils % (Manual) 48, Lymphocytes % ( Manual) 8L, Monocytes % (Manual) 3, Eosinophils % (Manual) 1, Basophils % ( Manual) 0, Band Neutrophils 40H, Platelet Estimate Adequate, Platelet Morphology Normal, Red Blood Cell Morphology , Polychromasia 1+, Sodium Level 126L, Potassium Level 3.7, Chloride Level 97L, Carbon Dioxide Level 16L, Anion Gap 13, Blood Urea Nitrogen 46H, Creatinine 2.5H, Estimat Glomerular Filtration Rate 26.4, Glucose Level 147H, Hemoglobin A1c 5.0, Lactic Acid Level 5.50H, Uric Acid 5.8, Calcium Level 6.0#L, Phosphorus Level 4.7, Magnesium Level 1.9, Total Bilirubin 0.9, Gamma Glutamyl Transpeptidase 208H, Aspartate Amino Transf (AST/SGOT) 782H, Alanine Aminotransferase (ALT/SGPT) 855H, Alkaline Phosphatase 81, Ammonia 63H, Total Creatine Kinase 1777H, Troponin I 0.030, Pro-B-Type Natriuretic Peptide > 82413F, Total Protein 4.4L, Albumin 1.3L, Globulin 3.1, Albumin/Globulin Ratio 0.4L, Triglycerides Level 55, Cholesterol Level < 50, LDL Cholesterol 7, HDL Cholesterol 9L, Cholesterol/HDL Ratio 5.6H, Lipase 66L, Thyroid Stimulating Hormone (TSH) 0.459, Phenytoin (Dilantin) Level 10.6 01/20/18 08:20: Lactic Acid Level 2.70H Height (Feet): 5 Height (Inches): 3.00 Weight (Pounds): 196 General Appearance: mild distress EENT: other - on vent Cardiovascular: tachycardia Respiratory/Chest: decreased breath sounds, rhonchi - bilaterally Abdomen: distended Objective no change LORRIE PERAZA Jan 20, 2018 13:58
--- NOTE | 2018-01-20 13:58 | Internal Med Progress Note ---
Subjective Date of Service: Jan 20, 2018 Physician Name Porter,Adrian Attending Physician Guillermo Morel MD Current Medications Medications (Trade) Dose Ordered Sig/Kel Route PRN Reason Start Time Stop Time Status Last Admin Dose Admin Acetaminophen (Tylenol) 650 mg Q4H PRN ORAL FEVER 01/18/18 13:00 02/17/18 08:59 Acetaminophen (Tylenol) 650 mg Q4H PRN RECTAL Mild Pain (Pain Scale 1-3) 01/20/18 12:45 02/19/18 12:44 Albuterol/ Ipratropium (Albuterol/ Ipratropium) 3 ml Q4H PRN HHN Shortness of Breath 01/18/18 15:15 01/23/18 07:14 Daptomycin 500 mg/ Sodium Chloride 55 ml @ 100 mls/hr Q48H IV 01/21/18 20:00 01/25/18 19:59 Dextrose (Dextrose 50%) 25 ml STAT PRN IV Hypoglycemia 01/19/18 07:15 02/17/18 07:14 Dextrose (Dextrose 50%) 50 ml STAT PRN IV Hypoglycemia 01/19/18 07:30 02/17/18 07:29 Dextrose/Sodium Chloride 1,000 ml @ 200 mls/hr Q5H IV 01/20/18 10:30 02/18/18 10:29 01/20/18 10:49 Heparin Sodium (Porcine) (Heparin 5000 units/ml) 5,000 units EVERY 12 HOURS SUBQ 01/18/18 21:00 02/17/18 08:59 01/20/18 08:48 Levetiracetam 100 ml @ 400 mls/hr Q12HR IVPB 01/18/18 22:30 02/17/18 22:29 01/20/18 08:41 Lorazepam (Ativan 2mg/ml 1ml) 2 mg Q2H PRN IV For Anxiety 01/18/18 13:15 01/25/18 07:14 Meropenem 1 gm/ Sodium Chloride 55 ml @ 110 mls/hr Q12H IVPB 01/18/18 19:30 01/23/18 19:29 01/20/18 07:49 Micafungin Sodium 100 mg/Sodium Chloride 110 ml @ 110 mls/hr Q24H IVPB 01/18/18 20:30 01/25/18 20:29 01/19/18 22:30 Morphine Sulfate (Morphine Sulfate) 4 mg Q4H PRN IVP Severe Pain (Pain Scale 7-10) 01/18/18 15:15 01/25/18 07:14 Norepinephrine Bitartrate 8 mg/ Dextrose 508 ml @ 0 mls/hr Q24H IV 01/18/18 17:00 02/17/18 16:59 01/20/18 12:04 Ondansetron HCl (Zofran) 4 mg Q6H PRN IVP Nausea & Vomiting 01/18/18 13:15 02/17/18 07:14 Pantoprazole (Protonix) 40 mg Q12HR IV 01/19/18 21:00 02/17/18 08:59 01/20/18 08:46 Phenylephrine HCl 50 mg/Dextrose 250 ml @ 0 mls/hr Q24H IV 01/18/18 15:00 02/17/18 14:59 01/20/18 12:05 Phenytoin 150 mg/ Sodium Chloride 58 ml @ 114 mls/hr EVERY 12 HOURS IVPB 01/18/18 22:30 02/17/18 22:29 01/20/18 09:00 Polyethylene Glycol (Miralax) 17 gm DAILYPRN PRN ORAL Constipation 01/19/18 07:15 02/17/18 07:14 Allergies: Coded Allergies: No Known Allergies (Unverified , 01/18/15) ROS Limited/Unobtainable: Yes Subjective 37 YO F admitted with abdominal distention. S/P cardiac arrest. S/P exploratory laparotomy 01/19/18. Cover for [facility]-Dr Morel. ICU Objective Last Vital Signs Date Time Temp Pulse Resp B/P (MAP) Pulse Ox O2 Delivery O2 Flow Rate FiO2 01/20/18 13:31 130 30 100 01/20/18 12:39 60 01/20/18 12:05 105/60 01/20/18 11:30 Mechanical Ventilator 01/20/18 08:00 100.7 100.7 01/18/18 06:30 15.0 General Appearance: WD/WN, lethargic EENT: normal ENT inspection Neck: non-tender, normal alignment, supple, other - tracheostomy Cardiovascular: normal peripheral pulses, normal rate, regular rhythm, regularly irregular, no gallop/murmur, no JVD Respiratory/Chest: chest wall non-tender, no accessory muscle use, rhonchi - bilaterally, other - Mech Vent Abdomen: normal bowel sounds, non tender, soft, no organomegaly, no mass Extremities: normal inspection Skin: normal pigmentation, warm/dry Laboratory Tests Test 01/19/18 17:15 01/20/18 05:13 01/20/18 08:20 Prothrombin Time 24.5 SEC (9.30-11.50) H Prothromb Time International Ratio 2.4 (0.9-1.1) H White Blood Count 22.2 K/UL (4.8-10.8) *H Red Blood Count 5.03 M/UL (4.20-5.40) Hemoglobin 15.0 G/DL (12.0-16.0) Hematocrit 46.1 % (37.0-47.0) Mean Corpuscular Volume 92 FL (80-99) Mean Corpuscular Hemoglobin 29.8 PG (27.0-31.0) Mean Corpuscular Hemoglobin Concent 32.5 G/DL (32.0-36.0) Red Cell Distribution Width 11.9 % (11.6-14.8) Platelet Count 161 K/UL (150-450) Mean Platelet Volume 7.5 FL (6.5-10.1) Neutrophils (%) (Auto) % (45.0-75.0) Lymphocytes (%) (Auto) % (20.0-45.0) Monocytes (%) (Auto) % (1.0-10.0) Eosinophils (%) (Auto) % (0.0-3.0) Basophils (%) (Auto) % (0.0-2.0) Differential Total Cells Counted 100 Neutrophils % (Manual) 48 % (45-75) Lymphocytes % (Manual) 8 % (20-45) L Monocytes % (Manual) 3 % (1-10) Eosinophils % (Manual) 1 % (0-3) Basophils % (Manual) 0 % (0-2) Band Neutrophils 40 % (0-8) H Platelet Estimate Adequate Platelet Morphology Normal Red Blood Cell Morphology Polychromasia 1+ Sodium Level 126 MMOL/L (136-145) L Potassium Level 3.7 MMOL/L (3.5-5.1) Chloride Level 97 MMOL/L (98-107) L Carbon Dioxide Level 16 MMOL/L (21-32) L Anion Gap 13 mmol/L (5-15) Blood Urea Nitrogen 46 mg/dL (7-18) H Creatinine 2.5 MG/DL (0.55-1.30) H Estimat Glomerular Filtration Rate 26.4 mL/min (>60) Glucose Level 147 MG/DL (74-106) H Hemoglobin A1c 5.0 % (4.3-6.0) Lactic Acid Level 5.50 mmol/L (0.4-2.0) H 2.70 mmol/L (0.66-2.22) H Uric Acid 5.8 MG/DL (2.6-7.2) Calcium Level 6.0 MG/DL (8.5-10.1) #L Phosphorus Level 4.7 MG/DL (2.5-4.9) Magnesium Level 1.9 MG/DL (1.8-2.4) Total Bilirubin 0.9 MG/DL (0.2-1.0) Gamma Glutamyl Transpeptidase 208 U/L (5-85) H Aspartate Amino Transf (AST/SGOT) 782 U/L (15-37) H Alanine Aminotransferase (ALT/SGPT) 855 U/L (12-78) H Alkaline Phosphatase 81 U/L (46-116) Ammonia 63 umol/L (11-32) H Total Creatine Kinase 1777 U/L (26-308) H Troponin I 0.030 ng/mL (0.000-0.056) Pro-B-Type Natriuretic Peptide > 15672 pg/mL (0-125) H Total Protein 4.4 G/DL (6.4-8.2) L Albumin 1.3 G/DL (3.4-5.0) L Globulin 3.1 g/dL Albumin/Globulin Ratio 0.4 (1.0-2.7) L Triglycerides Level 55 MG/DL (30-150) Cholesterol Level < 50 MG/DL (< 200) LDL Cholesterol 7 mg/dL (<100) HDL Cholesterol 9 MG/DL (40-60) L Cholesterol/HDL Ratio 5.6 (3.3-4.4) H Lipase 66 U/L (73-393) L Thyroid Stimulating Hormone (TSH) 0.459 uiU/mL (0.358-3.740) Phenytoin (Dilantin) Level 10.6 ug/mL (10-20) Microbiology Date/Time Source Procedure Growth Status 01/18/18 01:50 Blood Blood Culture - Preliminary Staphylococcus Sp Coag Neg Resulted 01/18/18 01:40 Blood Blood Culture - Final Diphtheroids Complete 01/19/18 04:00 Sputum Gram Stain - Final Resulted 01/19/18 04:00 Sputum Culture - Preliminary Gram Negative Bacillus 1 Resulted 01/18/18 17:58 Urine,Clean Catch Urine Culture - Preliminary NO GROWTH AFTER 24 HOURS Resulted 01/18/18 01:50 Rectal Mucosa VRE Culture - Final Enterococcus Faecalis - Vre Complete Intake and Output 01/19/18 01/20/18 19:00 07:00 Intake Total 1837 ml 3131.0 ml Output Total 20 ml 1405 ml Balance 1817 ml 1726.0 ml Intake IV Total 1837 ml 3131.0 ml Output Urine Total 20 ml 845 ml Stool Total 0 ml Gastric Drainage Total 10 ml Drainage Total 550 ml # Bowel Movements 2 Assessment/Plan Problem List: (1) Incarcerated ventral hernia Assessment & Plan: S/P exploratory laparotomy on 01/19/18-see surgery note. Closure of incision on 01/21/18. (2) Volvulus of sigmoid colon (3) Abdominal distension (4) Cardiac arrest Assessment & Plan: see cardiology note (5) Seizure disorder (6) Anemia (7) Hypertension Assessment & Plan: Hypotensived. Currently on pressors. (8) Encephalopathy (9) Dysphagia Status: not improved Assessment/Plan prognosis is guarded. Adrian Porter MD Jan 20, 2018 13:58
[2018-01-20] MEDS ORDERED: Hydrocortisone 100mg Inj IV SCH (14:00)
--- NOTE | 2018-01-20 14:49 | Infectious Diseases Prog Note ---
Assessment/Plan Assessment/Plan Assessment: Septic shock- 2ry intrabdominal source- (intra-abdominal peritonitis 2ry to malpositioned gastric feeding tube, incarcerated fat containing ventral hernia and possible sigmoid volvulus) --SP Exploratory laparotomy, Abdominal washout, G-tube replacement, wound vac placment, Excision of incarcerated ventral hernia, and Reduction of sigmoid volvulus 01/19 --no perforation or gross necrosis noted upon surgical exploration -No obvious pathology on lungs on CXR. r/o UTI -Bcx 2/4 Diptheroids, 1/4 CONS (contaminants) -u/a initial normal; repeat WBC 10-15, nit +, leuk +1 but sq cells mod ( contaminated); ucx NTD -sp cx GNB (likely colonizer) -CXR: Hyperlucent the upper abdomen. Free air not excluded. Correlate clinically. Distended bowel also noted. No acute disease within the chest. Tracheostomy Fever/leukocytosis; improving Bradycardia> Asystolic cardiac arrest Acute on chronic respirator failure Lactic acidosis; improving INDIRA; worsening HTN seizure disorder anoxic brain injury 2014 chronic resp failure trach/vent dependant 2014 s/p G-tube 2014 SNF resident Plan: -Continue Daptomycin, Meropenem and Micafungin #3 for septic shock and for bowel emmanuel coverage -01/18 SP IV Vancomycin #1, Cefepime x1, Azithromycin x1, Zosyn x1 -f/u cx -Monitor CBC/BMP, temperatures -Trend WBC, lactic acid -Surgery following -wound care per hospital protocol -CXR am Thank you for this consultation. Will continue to follow along with you. Discussed with RN Subjective Allergies: Coded Allergies: No Known Allergies (Unverified , 01/18/15) Subjective taken to exp lap last night Tm 100.7 WBC and lactic acid improving remains on 2 pressors Objective Vital Signs Last 24 Hour Vital Signs Date Time Temp Pulse Resp B/P (MAP) Pulse Ox O2 Delivery O2 Flow Rate FiO2 01/20/18 14:00 128 28 123/62 99 Mechanical Ventilator 80 01/20/18 13:31 130 30 100 01/20/18 13:30 126 24 125/64 98 Mechanical Ventilator 80 01/20/18 13:00 125 26 106/60 100 Mechanical Ventilator 80 01/20/18 12:39 130 30 60 01/20/18 12:30 124 26 119/65 100 Mechanical Ventilator 80 7/4/18 12:05 133 105/60 7/4/18 12:04 105/60 7/4/18 12:00 100.0 133 26 105/55 100 Mechanical Ventilator 80 100.0 7/4/18 12:00 80 7/4/18 11:30 133 36 105/60 100 Mechanical Ventilator 80 7/4/18 11:24 130 30 60 7/4/18 11:00 124 33 100/55 99 Mechanical Ventilator 80 7/4/18 10:30 127 25 117/61 99 Mechanical Ventilator 80 7/4/18 10:00 127 25 111/61 99 Mechanical Ventilator 80 7/4/18 09:30 129 27 108/62 99 Mechanical Ventilator 80 7/4/18 09:00 131 27 104/61 99 Mechanical Ventilator 80 7/4/18 08:51 127 26 60 7/4/18 08:30 131 27 118/60 100 Mechanical Ventilator 80 7/4/18 08:00 138 7/4/18 08:00 100.7 133 28 108/60 100 Mechanical Ventilator 80 100.7 7/4/18 08:00 80 7/4/18 07:30 137 30 92/48 100 Mechanical Ventilator 80 7/4/18 07:25 142 34 80 7/4/18 07:00 106/70 7/4/18 07:00 135 32 106/70 98 Mechanical Ventilator 80 7/4/18 06:30 138 35 102/58 97 Mechanical Ventilator 80 7/4/18 06:00 140 35 115/55 96 Mechanical Ventilator 80 7/4/18 06:00 115/55 7/4/18 05:51 101/52 7/4/18 05:30 134 34 114/58 97 Mechanical Ventilator 80 7/4/18 05:18 133 33 60 7/4/18 05:00 130 31 103/60 100 Mechanical Ventilator 80 7/4/18 05:00 103/60 7/4/18 04:30 132 33 112/65 100 Mechanical Ventilator 80 7/4/18 04:02 133 7/4/18 04:00 121/66 7/4/18 04:00 97.5 131 33 121/66 99 Mechanical Ventilator 80 97.5 7/4/18 04:00 80 7/4/18 03:59 131 83/41 7/4/18 03:30 130 34 110/65 99 Mechanical Ventilator 80 7/4/18 03:11 129 34 80 7/4/18 03:00 130 35 105/67 98 Mechanical Ventilator 80 7/4/18 03:00 93/63 7/4/18 02:30 130 35 96/58 98 Mechanical Ventilator 80 7/4/18 02:00 127 35 107/70 98 Mechanical Ventilator 80 7/4/18 02:00 107/70 7/4/18 01:30 125 35 80 7/4/18 01:30 126 35 91/63 97 Mechanical Ventilator 80 7/4/18 01:09 100/64 7/4/18 01:06 127 7/4/18 01:00 126 33 91/73 96 Mechanical Ventilator 80 7/4/18 01:00 91/73 7/4/18 00:30 123 33 96/59 97 Mechanical Ventilator 80 7/4/18 00:04 120 92/60 7/4/18 00:00 99.5 120 31 92/60 98 Mechanical Ventilator 80 99.5 7/4/18 00:00 92/60 7/4/18 00:00 80 7/3/18 23:30 118 29 101/58 99 Mechanical Ventilator 80 7/3/18 23:11 119 29 50 7/3/18 23:00 120 27 101/48 99 Mechanical Ventilator 80 7/3/18 23:00 101/48 7/3/18 22:45 121 28 103/58 99 Mechanical Ventilator 80 7/3/18 22:30 120 28 98/52 99 Mechanical Ventilator 80 7/3/18 22:15 121 26 86/44 99 Mechanical Ventilator 80 7/3/18 22:00 121 25 72/35 99 Mechanical Ventilator 80 7/3/18 22:00 78/44 7/3/18 21:56 120 7/3/18 21:45 80 7/3/18 21:45 121 25 68/37 90 Mechanical Ventilator 80 7/3/18 21:37 208.2 123 20 99 7/3/18 21:34 122 17 35 7/3/18 21:30 99.7 125 20 71/38 91 Mechanical Ventilator 35 99.7 7/3/18 20:00 35 7/3/18 19:30 131 32 94/68 95 Mechanical Ventilator 35 7/3/18 19:25 133 33 35 7/3/18 19:15 132 30 99/62 98 Mechanical Ventilator 35 01/19/18 19:00 141 30 71/35 93 Mechanical Ventilator 35 01/19/18 17:18 141 27 35 01/19/18 16:00 119 01/19/18 16:00 119 107/81 01/19/18 16:00 35 01/19/18 15:50 107/81 01/19/18 15:22 140 30 35 Height (Feet): 5 Height (Inches): 3.00 Weight (Pounds): 196 Objective General Appearance: chronically ill HEENT: normocephalic, bilateral eye PERRL Neck: tracheotomy Respiratory: crackles, rhonchi Cardiovascular : tachycardia Gastrointestinal: Gtube present; significant abd distention with some grimacing upon palpation; diminished to absent bowel sounds Genitourinary: rock in place Musculoskeletal: other - contracted extremities Neurologic: other - nonverbal Skin: no rash or cellulitis Microbiology Date/Time Source Procedure Growth Status 01/18/18 01:50 Blood Blood Culture - Preliminary Staphylococcus Sp Coag Neg Resulted 01/18/18 01:40 Blood Blood Culture - Final Diphtheroids Complete 01/19/18 04:00 Sputum Gram Stain - Final Resulted 01/19/18 04:00 Sputum Culture - Preliminary Gram Negative Bacillus 1 Resulted 01/18/18 17:58 Urine,Clean Catch Urine Culture - Preliminary NO GROWTH AFTER 24 HOURS Resulted 01/18/18 01:50 Rectal Mucosa VRE Culture - Final Enterococcus Faecalis - Vre Complete Laboratory Tests Test 01/19/18 17:15 01/20/18 05:13 01/20/18 08:20 Prothrombin Time 24.5 SEC (9.30-11.50) H Prothromb Time International Ratio 2.4 (0.9-1.1) H White Blood Count 22.2 K/UL (4.8-10.8) *H Red Blood Count 5.03 M/UL (4.20-5.40) Hemoglobin 15.0 G/DL (12.0-16.0) Hematocrit 46.1 % (37.0-47.0) Mean Corpuscular Volume 92 FL (80-99) Mean Corpuscular Hemoglobin 29.8 PG (27.0-31.0) Mean Corpuscular Hemoglobin Concent 32.5 G/DL (32.0-36.0) Red Cell Distribution Width 11.9 % (11.6-14.8) Platelet Count 161 K/UL (150-450) Mean Platelet Volume 7.5 FL (6.5-10.1) Neutrophils (%) (Auto) % (45.0-75.0) Lymphocytes (%) (Auto) % (20.0-45.0) Monocytes (%) (Auto) % (1.0-10.0) Eosinophils (%) (Auto) % (0.0-3.0) Basophils (%) (Auto) % (0.0-2.0) Differential Total Cells Counted 100 Neutrophils % (Manual) 48 % (45-75) Lymphocytes % (Manual) 8 % (20-45) L Monocytes % (Manual) 3 % (1-10) Eosinophils % (Manual) 1 % (0-3) Basophils % (Manual) 0 % (0-2) Band Neutrophils 40 % (0-8) H Platelet Estimate Adequate Platelet Morphology Normal Red Blood Cell Morphology Polychromasia 1+ Sodium Level 126 MMOL/L (136-145) L Potassium Level 3.7 MMOL/L (3.5-5.1) Chloride Level 97 MMOL/L (98-107) L Carbon Dioxide Level 16 MMOL/L (21-32) L Anion Gap 13 mmol/L (5-15) Blood Urea Nitrogen 46 mg/dL (7-18) H Creatinine 2.5 MG/DL (0.55-1.30) H Estimat Glomerular Filtration Rate 26.4 mL/min (>60) Glucose Level 147 MG/DL (74-106) H Hemoglobin A1c 5.0 % (4.3-6.0) Lactic Acid Level 5.50 mmol/L (0.4-2.0) H 2.70 mmol/L (0.66-2.22) H Uric Acid 5.8 MG/DL (2.6-7.2) Calcium Level 6.0 MG/DL (8.5-10.1) #L Phosphorus Level 4.7 MG/DL (2.5-4.9) Magnesium Level 1.9 MG/DL (1.8-2.4) Total Bilirubin 0.9 MG/DL (0.2-1.0) Gamma Glutamyl Transpeptidase 208 U/L (5-85) H Aspartate Amino Transf (AST/SGOT) 782 U/L (15-37) H Alanine Aminotransferase (ALT/SGPT) 855 U/L (12-78) H Alkaline Phosphatase 81 U/L (46-116) Ammonia 63 umol/L (11-32) H Total Creatine Kinase 1777 U/L (26-308) H Troponin I 0.030 ng/mL (0.000-0.056) C-Reactive Protein, Quantitative 23.7 mg/dL (0.00-0.90) H Pro-B-Type Natriuretic Peptide > 51529 pg/mL (0-125) H Total Protein 4.4 G/DL (6.4-8.2) L Albumin 1.3 G/DL (3.4-5.0) L Globulin 3.1 g/dL Albumin/Globulin Ratio 0.4 (1.0-2.7) L Triglycerides Level 55 MG/DL (30-150) Cholesterol Level < 50 MG/DL (< 200) LDL Cholesterol 7 mg/dL (<100) HDL Cholesterol 9 MG/DL (40-60) L Cholesterol/HDL Ratio 5.6 (3.3-4.4) H Lipase 66 U/L (73-393) L Thyroid Stimulating Hormone (TSH) 0.459 uiU/mL (0.358-3.740) Phenytoin (Dilantin) Level 10.6 ug/mL (10-20) Current Medications Medications (Trade) Dose Ordered Sig/Kel Route PRN Reason Start Time Stop Time Status Last Admin Dose Admin Acetaminophen (Tylenol) 650 mg Q4H PRN ORAL FEVER 01/18/18 13:00 02/17/18 08:59 Acetaminophen (Tylenol) 650 mg Q4H PRN RECTAL Mild Pain (Pain Scale 1-3) 01/20/18 12:45 02/19/18 12:44 Albumin Human 500 ml @ 0 mls/hr Q0M ONCE IV 01/20/18 15:00 01/20/18 15:01 Albuterol/ Ipratropium (Albuterol/ Ipratropium) 3 ml Q4H PRN HHN Shortness of Breath 01/18/18 15:15 01/23/18 07:14 Daptomycin 500 mg/ Sodium Chloride 55 ml @ 100 mls/hr Q48H IV 01/21/18 20:00 01/25/18 19:59 Dextrose (Dextrose 50%) 25 ml STAT PRN IV Hypoglycemia 01/19/18 07:15 02/17/18 07:14 Dextrose (Dextrose 50%) 50 ml STAT PRN IV Hypoglycemia 01/19/18 07:30 02/17/18 07:29 Dextrose/Sodium Chloride 1,000 ml @ 200 mls/hr Q5H IV 01/20/18 10:30 02/18/18 10:29 01/20/18 10:49 Heparin Sodium (Porcine) (Heparin 5000 units/ml) 5,000 units EVERY 12 HOURS SUBQ 01/18/18 21:00 02/17/18 08:59 01/20/18 08:48 Hydrocortisone (Solu-CORTEF) 100 mg EVERY 8 HOURS IV 01/20/18 22:00 02/19/18 21:59 Hydrocortisone (Solu-CORTEF) 100 mg ONCE IV 01/20/18 14:00 01/20/18 15:00 Levetiracetam 100 ml @ 400 mls/hr Q12HR IVPB 01/18/18 22:30 02/17/18 22:29 01/20/18 08:41 Lorazepam (Ativan 2mg/ml 1ml) 2 mg Q2H PRN IV For Anxiety 01/18/18 13:15 01/25/18 07:14 Meropenem 1 gm/ Sodium Chloride 55 ml @ 110 mls/hr Q12H IVPB 01/18/18 19:30 01/23/18 19:29 01/20/18 07:49 Micafungin Sodium 100 mg/Sodium Chloride 110 ml @ 110 mls/hr Q24H IVPB 01/18/18 20:30 01/25/18 20:29 01/19/18 22:30 Morphine Sulfate (Morphine Sulfate) 4 mg Q4H PRN IVP Severe Pain (Pain Scale 7-10) 01/18/18 15:15 01/25/18 07:14 Norepinephrine Bitartrate 8 mg/ Dextrose 508 ml @ 0 mls/hr Q24H IV 01/18/18 17:00 02/17/18 16:59 01/20/18 12:04 Ondansetron HCl (Zofran) 4 mg Q6H PRN IVP Nausea & Vomiting 01/18/18 13:15 02/17/18 07:14 Pantoprazole (Protonix) 40 mg Q12HR IV 01/19/18 21:00 02/17/18 08:59 01/20/18 08:46 Phenylephrine HCl 50 mg/Dextrose 250 ml @ 0 mls/hr Q24H IV 01/18/18 15:00 02/17/18 14:59 01/20/18 12:05 Phenytoin 150 mg/ Sodium Chloride 58 ml @ 114 mls/hr EVERY 12 HOURS IVPB 01/18/18 22:30 02/17/18 22:29 01/20/18 09:00 Polyethylene Glycol (Miralax) 17 gm DAILYPRN PRN ORAL Constipation 01/19/18 07:15 02/17/18 07:14 Amelia Bah M.D. Jan 20, 2018 14:49
[2018-01-20] MEDS ORDERED: D5 1/2NS 1000ml IV ONE (15:17)
[2018-01-20] MEDS ORDERED: NS 500ML ONE ×2 (15:17→15:56)
[2018-01-20] MEDS ORDERED: Tubing IV Secondary IV ONE ×2 (15:17→15:56)
[2018-01-20] MEDS ORDERED: D5NS 1000ml IV ONE (15:56)
[2018-01-20] MEDS: Dyna-Hex 2% Top Sol 2oz TOPIC SCH (20:08)
[2018-01-20] MEDS: Micafungin 100 MG in NS 110 ML IVPB SCH (20:08)
[2018-01-20] MEDS: Hydrocortisone 100mg Inj IV SCH (22:46)
[2018-01-21] VITALS (59 sets, daily range): BP systolic 94–125; BP diastolic 50–85
[2018-01-21] MEDS: D5NS 1,000 ML IV SCH ×4 (01:26→19:41)
[2018-01-21] MEDS: Hydrocortisone 100mg Inj IV SCH ×3 (05:56→21:33)
[2018-01-21 06:20] LABS: HEMATOCRIT 30.5 % (37.0-47.0); HEMOGLOBIN 10.4 G/DL (12.0-16.0); INR 1.6 (0.9-1.1); MEAN CORPUSCULAR VOLUME 89 FL (80-99); PLATELET COUNT 104 K/UL (150-450); RED BLOOD COUNT 3.44 M/UL (4.20-5.40); RED CELL DISTRIBUTION WIDTH 11.6 % (11.6-14.8); WHITE BLOOD COUNT 17.1 K/UL (4.8-10.8)
[2018-01-21 06:45] LABS: ALANINE AMINOTRANSFERASE 713 U/L (12-78); ALBUMIN 1.6 G/DL (3.4-5.0); ALBUMIN/GLOBULIN RATIO 0.5 (1.0-2.7); ALKALINE PHOSPHATASE 88 U/L (46-116); ANION GAP 12 mmol/L (5-15); ASPARTATE AMINO TRANSFERASE 455 U/L (15-37); BILIRUBIN,TOTAL 1.2 MG/DL (0.2-1.0); BLOOD UREA NITROGEN 35 mg/dL (7-18); CALCIUM 6.5 MG/DL (8.5-10.1); CARBON DIOXIDE 18 MMOL/L (21-32); CHLORIDE 109 MMOL/L (98-107); CREATININE 2.3 MG/DL (0.55-1.30); PHOSPHORUS 3.5 MG/DL (2.5-4.9); SODIUM 139 MMOL/L (136-145)
[2018-01-21 06:48] LABS: POTASSIUM 2.5 MMOL/L (3.5-5.1)
[2018-01-21 06:49] LABS: BILIRUBIN,DIRECT 0.8 MG/DL (0.0-0.3)
[2018-01-21] MEDS: Meropenem 1 GM in NS 55 ML IVPB SCH ×2 (07:03→19:40)
--- NOTE | 2018-01-21 07:37 | Pre-Procedure Note/Attestation ---
Pre-Procedure Note/Attestation Complete Prior to Procedure Planned Procedure: not applicable Procedure Narrative: planned reexploratory laparotomy, possible bowel resection, possible ostomy, possible abdominal closure Indications for Procedure Pre-Operative Diagnosis: s/p exploratory laparotomy, abdominal washout, open abdomen Attestation I attest that I discussed the nature of the procedure; its benefits; risks and complications; and alternatives (and the risks and benefits of such alternatives ), prior to the procedure, with the patient (or the patient's legal home furnishings sales representative). I attest that, if there was a reasonable possibility of needing a blood transfusion, the patient (or the patient's legal home furnishings sales representative) was given the [place] [employer] [facility] [employer] [facility] standardized written summary, pursuant to the Gerardo Rangel Blood Safety Act ([place] Health and Safety Code # 1645, as amended). I attest that I re-evaluated the patient just prior to the surgery and that there has been no change in the patient's H&P, except as documented below: Marshall Ferguson Jan 21, 2018 07:37
[2018-01-21] MEDS: Heparin 5000 units/ml inj SUBQ SCH ×2 (07:59→21:00)
[2018-01-21] MEDS ORDERED: Propofol 200mg/20ml IV ONE (08:43)
[2018-01-21] MEDS ORDERED: Lidocaine 1% MPF 10mg/ml 5ml ONE (08:43)
[2018-01-21] MEDS ORDERED: Midazolam 2mg/2ml Inj ONE (08:43)
[2018-01-21] MEDS ORDERED: fentaNYL 100 mcg/2 mL IV ONE (08:43)
[2018-01-21] MEDS ORDERED: Bacitracin 50000 Units Vial ONE (08:44)
[2018-01-21] MEDS ORDERED: NeoSporin Gu Irrig 1ml Amp IRRIG ONE (08:45)
[2018-01-21] MEDS ORDERED: Sterile Water Irrig 1000ml IRRIG ONE (08:45)
[2018-01-21] MEDS ORDERED: Zemuron 50mg/5ml Inj IV ONE (08:53)
--- NOTE | 2018-01-21 09:30 | Consultation ---
DATE OF CONSULTATION: 01/19/2018 HEMATOLOGY/ONCOLOGY CONSULTATION CONSULTING PHYSICIAN: Isaiah Noriega M.D. REQUESTING PHYSICIAN: Yanick Hernandez M.D. REASON FOR CONSULTATION: Management of erythrocytosis. IDENTIFYING DATA: Dear Dr. Hernandez, The patient is a pleasant 37-year-old female with past medical history significant for hypertension, anoxic brain injury, seizure disorder, history of respiratory failure, status post trach and vent-dependant, who lives in the [facility], brought in to the ER with respiratory distress and tachycardia and noted to have severe leukocytosis. ACLS started. IV bicarbonate given. The patient spontaneously ICU for further evaluation. KUB showed potential intraabdominal process. She has been seen by Infectious Disease as well as by surgical service. G-tube is currently on low intermittent suction . On exam, incarcerated umbilical hernia, cannot determine if chronic, was able to be reduced. The patient potentially may need diagnostic laparoscopy versus exploratory laparoscopy. Hematology service was consulted given erythrocytosis. PAST MEDICAL HISTORY: As noted above. ALLERGIES: No known drug allergies. MEDICATIONS: Coreg, Lovenox, omeprazole, lactulose, Keppra, . FAMILY HISTORY: Noncontributory. REVIEW OF SYSTEMS: Difficult to obtain given the patient is intubated. PHYSICAL EXAMINATION: VITAL SIGNS: Reviewed. GENERAL: No distress. LUNGS: Decreased breath sounds status post trach and vent. CARDIOVASCULAR: Regular rate. No S3 or S4. ABDOMEN: Soft, nontender, and nondistended. Hernia is reduced. G-tube noted. EXTREMITIES: No cyanosis, clubbing, or edema noted. LABORATORY DATA: WBC 41,000, hemoglobin 18.3, hematocrit 57, platelet 280,000, neutrophils 56%, and leukocytes 14%, band neutrophils 25,000. INR of 1.4 and PTT of 29. Creatinine 1.9. Lactic acid 7.4. Troponin 0.07. ASSESSMENT AND RECOMMENDATIONS: 1. Leukocytosis, likely reactive. The patient with lactic acidosis. Lactic acid 7.4. Currently on pressors. Rule out infectious etiology. Currently, is on broad-spectrum antibiotics and antifungals. Closely monitor for improvement. 2. Erythrocytosis. Erythrocytes 20,000. Prior laboratories have been reviewed. This is new onset for the patient back in 2016. She has never had erythrocyte count this elevated. Again obtain JAK2 level. 3. Septic shock, closely monitor, on antibiotics, broad spectrum. 4. Coagulopathy. Rule out disseminated intravascular coagulation. 5. Seizure disorder, currently on antiseizure medication. 6. Respiratory failure, status post trach and vent. 7. Dysphagia, status post gastrostomy tube. I appreciate the consultation. Isaiah Noriega M.D. DR: CLARE JOB#: [id number] CC:
[2018-01-21] MEDS ORDERED: Tubing IV Secondary IV ONE (09:38)
[2018-01-21] MEDS ORDERED: D5NS 1000ml IV ONE (09:38)
--- NOTE | 2018-01-21 09:44 | Anethesia Preoperative Eval ---
Anesthesia Pre-op PMH/ROS General Date of Evaluation: Jan 21, 2018 Anesthesiologist: Jaskaran ASA Score: ASA 4 Mallampati Score Class I : Soft palate, uvula, fauces, pillars visible Class II: Soft palate, uvula, fauces visible Class III: Soft palate, base of uvula visible Class IV: Only hard plate visible Mallampati Classification: Class III Surgeon: Phyllis Diagnosis: Necrotic bowel, volvulus Surgical Procedure: Ex-lap, possible bowel resection, possible ostomy Anesthesia History: none Family History: no anesthesia problems Allergies: Coded Allergies: No Known Allergies (Unverified , 01/18/15) Medications: see eMAR Past Medical History PMH Narrative: no changes in pmh since anesthesia pre-op from 01/19/18 Anesthesia Pre-op Phys. Exam Physician Exam Last Vital Signs Date Time Temp Pulse Resp B/P (MAP) Pulse Ox O2 Delivery O2 Flow Rate FiO2 01/21/18 09:00 107 24 50 01/21/18 08:30 108/59 99 Mechanical Ventilator 01/21/18 08:00 99.4 99.4 01/18/18 06:30 15.0 Airway Exam Mallampati Score: Class III MO: limited Neck: trach ROM: limited Teeth: missing, intact, broken Anesthesia Pre-op A/P Labs Hematology Test 01/21/18 05:46 White Blood Count 17.1 K/UL (4.8-10.8) H Red Blood Count 3.44 M/UL (4.20-5.40) L Hemoglobin 10.4 G/DL (12.0-16.0) #L Hematocrit 30.5 % (37.0-47.0) #L Mean Corpuscular Volume 89 FL (80-99) Mean Corpuscular Hemoglobin 30.3 PG (27.0-31.0) Mean Corpuscular Hemoglobin Concent 34.1 G/DL (32.0-36.0) Red Cell Distribution Width 11.6 % (11.6-14.8) Platelet Count 104 K/UL (150-450) L Mean Platelet Volume 7.9 FL (6.5-10.1) Neutrophils (%) (Auto) % (45.0-75.0) Lymphocytes (%) (Auto) % (20.0-45.0) Monocytes (%) (Auto) % (1.0-10.0) Eosinophils (%) (Auto) % (0.0-3.0) Basophils (%) (Auto) % (0.0-2.0) Differential Total Cells Counted 100 Neutrophils % (Manual) 83 % (45-75) H Lymphocytes % (Manual) 5 % (20-45) L Monocytes % (Manual) 3 % (1-10) Eosinophils % (Manual) 0 % (0-3) Basophils % (Manual) 0 % (0-2) Band Neutrophils 9 % (0-8) H Platelet Estimate Decreased L Platelet Morphology Normal Hypochromasia 1+ Anisocytosis 1+ Coagulation Test 01/21/18 05:46 Prothrombin Time 16.8 SEC (9.30-11.50) H Prothromb Time International Ratio 1.6 (0.9-1.1) H Activated Partial Thromboplast Time 52 SEC (23-33) H Chemistry Test 01/21/18 05:46 Sodium Level 139 MMOL/L (136-145) Potassium Level 2.5 MMOL/L (3.5-5.1) *L Chloride Level 109 MMOL/L (98-107) H Carbon Dioxide Level 18 MMOL/L (21-32) L Anion Gap 12 mmol/L (5-15) Blood Urea Nitrogen 35 mg/dL (7-18) H Creatinine 2.3 MG/DL (0.55-1.30) H Estimat Glomerular Filtration Rate 29.1 mL/min (>60) Glucose Level 100 MG/DL (74-106) Lactic Acid Level 1.50 mmol/L (0.4-2.0) Uric Acid 6.0 MG/DL (2.6-7.2) Calcium Level 6.5 MG/DL (8.5-10.1) L Phosphorus Level 3.5 MG/DL (2.5-4.9) Magnesium Level 2.1 MG/DL (1.8-2.4) Total Bilirubin 1.2 MG/DL (0.2-1.0) H Direct Bilirubin 0.8 MG/DL (0.0-0.3) H Aspartate Amino Transf (AST/SGOT) 455 U/L (15-37) H Alanine Aminotransferase (ALT/SGPT) 713 U/L (12-78) H Alkaline Phosphatase 88 U/L (46-116) Troponin I 0.001 ng/mL (0.000-0.056) C-Reactive Protein, Quantitative 27.0 mg/dL (0.00-0.90) H Pro-B-Type Natriuretic Peptide 7214 pg/mL (0-125) H Total Protein 4.6 G/DL (6.4-8.2) L Albumin 1.6 G/DL (3.4-5.0) L Globulin 3.0 g/dL Albumin/Globulin Ratio 0.5 (1.0-2.7) L Lipase 224 U/L (73-393) Risk Assessment & Plan Assessment: ASSa IV, no changes in PMH and medical status since last surgery. Please refer to anesthesia pre-op from 01/19/18 for further details. Plan: GA Status Change Before Surgery: No Pre-Antibiotics Drug: On abx on floor Given Within 1 Hr of Incision: Yes MAKSIM HERNANDEZ M.D. Jan 21, 2018 09:44
--- NOTE | 2018-01-21 09:45 | Immediate Post-Op Evaluation ---
Immediate Post-Op Evalulation Immediate Post-Op Evalulation Procedure: Exploratory Laparotomy Date of Evaluation: Jan 21, 2018 Time of Evaluation: 12:19 IV Fluids: 2.3L Blood Products: 0 Estimated Blood Loss: 100 Urinary Output: 550 Blood Pressure Systolic: 97 Blood Pressure Diastolic: 72 Pulse Rate: 100 Respiratory Rate: 12 O2 Sat by Pulse Oximetry: 100 Temperature (Fahrenheit): 98.8 Pain Score (1-10): 0 Nausea: No Vomiting: No Complications 0 Patient Status: no response - patient unresponsive at baseline, ventilated - on trach, none Hydration Status: adequate Drug: on abx on floor Given Within 1 Hr of Incision: Yes MAKSIM HERNANDEZ M.D. Jan 21, 2018 09:45
[2018-01-21] MEDS ORDERED: NS Irrig 1000ml IRRIG ONE ×3 (10:13→11:02)
[2018-01-21] MEDS ORDERED: Surgicel 4in x 8in TOPIC ONE (11:06)
--- NOTE | 2018-01-21 11:32 | Infectious Diseases Prog Note ---
Assessment/Plan Assessment/Plan Assessment: Septic shock; improving after surgical exploration- 2ry intraabdominal source- (intra-abdominal peritonitis 2ry to malpositioned gastric feeding tube, incarcerated fat containing ventral hernia and possible sigmoid volvulus) --SP Exploratory laparotomy, Abdominal washout, G-tube replacement, wound vac placment, Excision of incarcerated ventral hernia, and Reduction of sigmoid volvulus 01/19 --no perforation or gross necrosis noted upon surgical exploration --abd fluid cx p -No obvious pathology on lungs on CXR. r/o UTI -Bcx 2/4 Diptheroids, 1/4 CONS (contaminants) -u/a initial normal; repeat WBC 10-15, nit +, leuk +1 but sq cells mod ( contaminated); ucx NTD -sp cx MDR ABC ( S Bactrim), GNB#2 (likely colonizer) -CXR: Hyperlucent the upper abdomen. Free air not excluded. Correlate clinically. Distended bowel also noted. No acute disease within the chest. Tracheostomy Fever/leukocytosis; improving Elevated CPK- likely 2ry to sepsis, Dapto possibly also contributing Bradycardia> Asystolic cardiac arrest Acute on chronic respirator failure Lactic acidosis; improving INDIRA; worsening HTN seizure disorder anoxic brain injury 2015 chronic resp failure trach/vent dependant 2014 s/p G-tube 2015 SNF resident Plan: -Switch Daptomycin #4 to IV Vancomycin given elevated CPK -Trend CPK -Continue Meropenem and Micafungin #4 for septic shock and for bowel emmanuel coverage -01/18 SP IV Vancomycin #1, Cefepime x1, Azithromycin x1, Zosyn x1 -f/u cx -Monitor CBC/BMP, temperatures -Trend WBC, lactic acid -Surgery following -wound care per hospital protocol -CXR am Thank you for this consultation. Will continue to follow along with you. Discussed with RN Subjective Allergies: Coded Allergies: No Known Allergies (Unverified , 01/18/15) Subjective afebrile in ~24hrs WBC improving repeat Bcx NTD elevated CK Pressors requirements significant down; off irvin, levo at 5 Objective Vital Signs Last 24 Hour Vital Signs Date Time Temp Pulse Resp B/P (MAP) Pulse Ox O2 Delivery O2 Flow Rate FiO2 01/21/18 09:00 107 24 50 01/21/18 08:30 109 23 108/59 99 Mechanical Ventilator 60 7/5/18 08:00 105 7/5/18 08:00 99.4 110 20 113/62 100 Mechanical Ventilator 60 99.4 7/5/18 08:00 50 7/5/18 07:59 112/64 7/5/18 07:30 109 20 107/63 100 Mechanical Ventilator 60 7/5/18 07:16 100 18 50 7/5/18 07:00 110 21 112/64 100 Mechanical Ventilator 60 7/5/18 06:45 107 20 115/68 100 Mechanical Ventilator 60 7/5/18 06:30 101 21 115/72 100 Mechanical Ventilator 60 7/5/18 06:15 105 20 110/64 100 Mechanical Ventilator 60 7/5/18 06:00 105 21 116/69 100 Mechanical Ventilator 60 7/5/18 06:00 110/64 7/5/18 05:45 105 20 121/85 100 Mechanical Ventilator 60 7/5/18 05:30 102 22 106/62 100 Mechanical Ventilator 60 7/5/18 05:30 99 20 60 7/5/18 05:15 104 22 111/66 100 Mechanical Ventilator 60 7/5/18 05:00 119/70 7/5/18 05:00 105 23 119/70 100 Mechanical Ventilator 60 7/5/18 04:45 112 20 116/72 99 Mechanical Ventilator 60 7/5/18 04:30 104 20 119/68 100 Mechanical Ventilator 60 7/5/18 04:15 106 20 110/66 100 Mechanical Ventilator 60 7/5/18 04:02 60 7/5/18 04:01 106 7/5/18 04:00 108/61 7/5/18 04:00 98.9 101 20 108/61 100 Mechanical Ventilator 60 98.9 7/5/18 03:45 97 20 110/69 100 Mechanical Ventilator 60 7/5/18 03:30 104 23 94/51 100 Mechanical Ventilator 60 7/5/18 03:30 103 21 60 7/5/18 03:15 101 20 111/62 100 Mechanical Ventilator 60 7/5/18 03:02 104 20 115/75 100 Mechanical Ventilator 60 7/5/18 03:00 115/75 7/5/18 02:45 105 21 110/57 100 Mechanical Ventilator 60 7/5/18 02:30 102 21 110/58 100 Mechanical Ventilator 60 7/5/18 02:15 104 20 108/61 100 Mechanical Ventilator 60 7/5/18 02:00 102 21 114/67 100 Mechanical Ventilator 60 7/5/18 02:00 114/67 7/5/18 01:45 105 22 120/72 100 Mechanical Ventilator 60 7/5/18 01:30 104 20 107/56 100 Mechanical Ventilator 60 7/5/18 01:15 104 20 108/53 100 Mechanical Ventilator 60 7/5/18 01:07 102 24 60 7/5/18 01:00 102 20 109/59 100 Mechanical Ventilator 60 7/5/18 01:00 109/59 7/5/18 00:45 106 21 106/54 100 Mechanical Ventilator 60 7/5/18 00:30 109 22 109/53 100 Mechanical Ventilator 60 7/5/18 00:15 106 21 104/58 100 Mechanical Ventilator 60 7/5/18 00:00 110/59 7/5/18 00:00 106 7/5/18 00:00 60 7/5/18 00:00 98.8 107 21 110/59 100 Mechanical Ventilator 60 98.8 7/4/18 23:45 103 21 114/66 100 Mechanical Ventilator 60 7/4/18 23:30 101 22 118/65 100 Mechanical Ventilator 60 7/4/18 23:30 104 22 60 7/4/18 23:15 109 22 116/69 100 Mechanical Ventilator 60 7/4/18 23:00 110/69 7/4/18 23:00 103 21 110/69 100 Mechanical Ventilator 60 7/4/18 22:50 102/55 7/4/18 22:49 104 102/55 7/4/18 22:45 105 21 102/55 100 Mechanical Ventilator 60 7/4/18 22:30 106 21 99/55 100 Mechanical Ventilator 60 7/4/18 22:15 108 21 113/64 100 Mechanical Ventilator 60 7/4/18 22:00 107 21 103/55 100 Mechanical Ventilator 60 7/4/18 22:00 103/55 7/4/18 21:45 108 22 100/55 100 Mechanical Ventilator 60 7/4/18 21:30 108 22 101/49 100 Mechanical Ventilator 60 7/4/18 21:30 105 21 60 7/4/18 21:15 107 21 103/58 100 Mechanical Ventilator 60 7/4/18 21:00 105/56 7/4/18 21:00 108 22 105/56 100 Mechanical Ventilator 60 7/4/18 20:45 109 22 104/58 100 Mechanical Ventilator 60 7/4/18 20:30 111 22 105/52 100 Mechanical Ventilator 60 7/4/18 20:15 108 21 101/59 100 Mechanical Ventilator 80 7/4/18 20:00 109 22 111/54 100 Mechanical Ventilator 80 7/4/18 20:00 111/54 7/4/18 20:00 80 7/4/18 20:00 106 7/4/18 19:45 106 21 106/61 100 Mechanical Ventilator 80 7/4/18 19:30 98.8 108 22 100/59 100 Mechanical Ventilator 80 98.8 7/4/18 19:30 108 21 60 7/4/18 19:15 108 22 106/56 100 Mechanical Ventilator 80 7/4/18 19:00 106/58 7/4/18 19:00 111 22 106/58 100 Mechanical Ventilator 80 7/4/18 18:30 114 18 96/47 99 Mechanical Ventilator 80 7/4/18 18:00 99.3 112 19 103/60 99 Mechanical Ventilator 80 99.3 7/4/18 17:54 98/50 7/4/18 17:30 113 20 104/59 99 Mechanical Ventilator 80 7/4/18 17:00 116 21 98/50 99 Mechanical Ventilator 80 7/4/18 16:44 114 24 60 7/4/18 16:30 115 22 100/58 99 Mechanical Ventilator 80 7/4/18 16:00 116 7/4/18 16:00 99.6 117 25 102/50 99 Mechanical Ventilator 80 99.6 7/4/18 16:00 80 7/4/18 15:30 119 33 110/68 99 Mechanical Ventilator 80 7/4/18 15:29 119 21 60 7/4/18 15:10 99.9 7/4/18 15:00 119 33 105/61 99 Mechanical Ventilator 80 7/4/18 14:40 100.0 7/4/18 14:30 122 33 102/60 99 Mechanical Ventilator 80 7/4/18 14:00 128 28 123/62 99 Mechanical Ventilator 80 7/4/18 13:31 130 30 100 7/4/18 13:30 126 24 125/64 98 Mechanical Ventilator 80 7/4/18 13:00 125 26 106/60 100 Mechanical Ventilator 80 7/4/18 12:39 130 30 60 01/20/18 12:30 124 26 119/65 100 Mechanical Ventilator 80 01/20/18 12:05 133 105/60 01/20/18 12:04 105/60 01/20/18 12:00 100.0 133 26 105/55 100 Mechanical Ventilator 80 100.0 01/20/18 12:00 125 01/20/18 12:00 80 01/20/18 11:30 133 36 105/60 100 Mechanical Ventilator 80 01/20/18 11:24 130 30 60 Height (Feet): 5 Height (Inches): 3.00 Weight (Pounds): 199 Objective General Appearance: chronically ill HEENT: normocephalic, bilateral eye PERRL Neck: tracheotomy Respiratory: crackles, rhonchi Cardiovascular : tachycardia Gastrointestinal: Gtube present; significant abd distention with some grimacing upon palpation; diminished to absent bowel sounds Genitourinary: rock in place Musculoskeletal: other - contracted extremities Neurologic: other - nonverbal Skin: no rash or cellulitis Microbiology Date/Time Source Procedure Growth Status 01/19/18 12:55 Blood Blood Culture - Preliminary NO GROWTH AFTER 24 HOURS Resulted 01/19/18 12:45 Blood Blood Culture - Preliminary NO GROWTH AFTER 24 HOURS Resulted 01/19/18 04:00 Sputum Gram Stain - Final Resulted 01/19/18 04:00 Sputum Culture - Preliminary Acinetobacter Baumannii Complx Gram Negative Bacillus 2 Resulted 01/18/18 17:58 Urine,Clean Catch Urine Culture - Preliminary NO GROWTH AFTER 24 HOURS Resulted 01/19/18 20:10 Abdominal Fluid Gram Stain - Final Resulted 01/19/18 20:10 Abdominal Fluid Aerobic Culture Pending Resulted 01/19/18 20:10 Abdominal Fluid Anaerobic Culture Pending Resulted Laboratory Tests Test 01/21/18 05:46 White Blood Count 17.1 K/UL (4.8-10.8) H Red Blood Count 3.44 M/UL (4.20-5.40) L Hemoglobin 10.4 G/DL (12.0-16.0) #L Hematocrit 30.5 % (37.0-47.0) #L Mean Corpuscular Volume 89 FL (80-99) Mean Corpuscular Hemoglobin 30.3 PG (27.0-31.0) Mean Corpuscular Hemoglobin Concent 34.1 G/DL (32.0-36.0) Red Cell Distribution Width 11.6 % (11.6-14.8) Platelet Count 104 K/UL (150-450) L Mean Platelet Volume 7.9 FL (6.5-10.1) Neutrophils (%) (Auto) % (45.0-75.0) Lymphocytes (%) (Auto) % (20.0-45.0) Monocytes (%) (Auto) % (1.0-10.0) Eosinophils (%) (Auto) % (0.0-3.0) Basophils (%) (Auto) % (0.0-2.0) Differential Total Cells Counted 100 Neutrophils % (Manual) 83 % (45-75) H Lymphocytes % (Manual) 5 % (20-45) L Monocytes % (Manual) 3 % (1-10) Eosinophils % (Manual) 0 % (0-3) Basophils % (Manual) 0 % (0-2) Band Neutrophils 9 % (0-8) H Platelet Estimate Decreased L Platelet Morphology Normal Hypochromasia 1+ Anisocytosis 1+ Prothrombin Time 16.8 SEC (9.30-11.50) H Prothromb Time International Ratio 1.6 (0.9-1.1) H Activated Partial Thromboplast Time 52 SEC (23-33) H Sodium Level 139 MMOL/L (136-145) Potassium Level 2.5 MMOL/L (3.5-5.1) *L Chloride Level 109 MMOL/L (98-107) H Carbon Dioxide Level 18 MMOL/L (21-32) L Anion Gap 12 mmol/L (5-15) Blood Urea Nitrogen 35 mg/dL (7-18) H Creatinine 2.3 MG/DL (0.55-1.30) H Estimat Glomerular Filtration Rate 29.1 mL/min (>60) Glucose Level 100 MG/DL (74-106) Lactic Acid Level 1.50 mmol/L (0.4-2.0) Uric Acid 6.0 MG/DL (2.6-7.2) Calcium Level 6.5 MG/DL (8.5-10.1) L Phosphorus Level 3.5 MG/DL (2.5-4.9) Magnesium Level 2.1 MG/DL (1.8-2.4) Total Bilirubin 1.2 MG/DL (0.2-1.0) H Direct Bilirubin 0.8 MG/DL (0.0-0.3) H Aspartate Amino Transf (AST/SGOT) 455 U/L (15-37) H Alanine Aminotransferase (ALT/SGPT) 713 U/L (12-78) H Alkaline Phosphatase 88 U/L (46-116) Troponin I 0.001 ng/mL (0.000-0.056) C-Reactive Protein, Quantitative 27.0 mg/dL (0.00-0.90) H Pro-B-Type Natriuretic Peptide 7214 pg/mL (0-125) H Total Protein 4.6 G/DL (6.4-8.2) L Albumin 1.6 G/DL (3.4-5.0) L Globulin 3.0 g/dL Albumin/Globulin Ratio 0.5 (1.0-2.7) L Lipase 224 U/L (73-393) Current Medications Medications (Trade) Dose Ordered Sig/Kel Route PRN Reason Start Time Stop Time Status Last Admin Dose Admin Acetaminophen (Tylenol) 650 mg Q4H PRN ORAL FEVER 01/18/18 13:00 02/17/18 08:59 Acetaminophen (Tylenol) 650 mg Q4H PRN RECTAL Mild Pain (Pain Scale 1-3) 01/20/18 12:45 02/19/18 12:44 01/20/18 14:40 Albuterol/ Ipratropium (Albuterol/ Ipratropium) 3 ml Q4H PRN HHN Shortness of Breath 01/18/18 15:15 01/23/18 07:14 Chlorhexidine Gluconate (Neela-Hex 2%) 1 applic DAILY@2000 TOPIC 01/20/18 20:00 02/19/18 19:59 01/20/18 20:08 Daptomycin 500 mg/ Sodium Chloride 55 ml @ 100 mls/hr Q48H IV 01/21/18 20:00 01/25/18 19:59 Dextrose (Dextrose 50%) 25 ml STAT PRN IV Hypoglycemia 01/19/18 07:15 02/17/18 07:14 Dextrose (Dextrose 50%) 50 ml STAT PRN IV Hypoglycemia 01/19/18 07:30 02/17/18 07:29 Dextrose/Sodium Chloride 1,000 ml @ 200 mls/hr Q5H IV 01/20/18 10:30 02/18/18 10:29 01/21/18 05:56 Heparin Sodium (Porcine) (Heparin 5000 units/ml) 5,000 units EVERY 12 HOURS SUBQ 01/18/18 21:00 02/17/18 08:59 01/20/18 21:14 Hydrocortisone (Solu-CORTEF) 100 mg EVERY 8 HOURS IV 01/20/18 22:00 02/19/18 21:59 01/21/18 05:56 Levetiracetam 100 ml @ 400 mls/hr Q12HR IVPB 01/18/18 22:30 02/17/18 22:29 01/20/18 21:11 Lorazepam (Ativan 2mg/ml 1ml) 2 mg Q2H PRN IV For Anxiety 01/18/18 13:15 01/25/18 07:14 Meropenem 1 gm/ Sodium Chloride 55 ml @ 110 mls/hr Q12H IVPB 01/18/18 19:30 01/23/18 19:29 01/21/18 07:03 Micafungin Sodium 100 mg/Sodium Chloride 110 ml @ 110 mls/hr Q24H IVPB 01/18/18 20:30 01/25/18 20:29 01/20/18 20:08 Morphine Sulfate (Morphine Sulfate) 4 mg Q4H PRN IVP Severe Pain (Pain Scale 7-10) 01/18/18 15:15 01/25/18 07:14 Norepinephrine Bitartrate 8 mg/ Dextrose 508 ml @ 0 mls/hr Q24H IV 01/18/18 17:00 02/17/18 16:59 01/21/18 07:59 Ondansetron HCl (Zofran) 4 mg Q6H PRN IVP Nausea & Vomiting 01/18/18 13:15 02/17/18 07:14 Pantoprazole (Protonix) 40 mg Q12HR IV 01/19/18 21:00 02/17/18 08:59 01/20/18 21:10 Phenylephrine HCl 50 mg/Dextrose 250 ml @ 0 mls/hr Q24H IV 01/18/18 15:00 02/17/18 14:59 01/20/18 22:49 Phenytoin 150 mg/ Sodium Chloride 58 ml @ 114 mls/hr EVERY 12 HOURS IVPB 01/18/18 22:30 02/17/18 22:29 01/20/18 21:11 Polyethylene Glycol (Miralax) 17 gm DAILYPRN PRN ORAL Constipation 01/19/18 07:15 02/17/18 07:14 Potassium Chloride 100 ml @ 50 mls/hr Q2HR IVPB 01/21/18 08:00 01/21/18 15:59 01/21/18 07:58 Amelia Bah M.D. Jan 21, 2018 11:32
--- NOTE | 2018-01-21 11:40 | Cardiology Progress Note ---
Assessment/Plan Status: stable Assessment/Plan (1) Acute on chronic respiratory failure (2) Sepsis (3) Anoxic brain injury (4) Feeding by G-tube (5) Tachycardia (6) S/P exploratory laparotomy. G-tube on continuous suctioning. Continue respiratory support G tube to suction, feels held Wound vac care Continue pressors tachycardia due to sepsis, hold beta blockers Echo reviewed Continue broad abx Return to OR today for ex lap and possible wound closure Subjective Cardiovascular: Reports: no symptoms Respiratory: Reports: no symptoms Gastrointestinal/Abdominal: Reports: no symptoms Genitourinary: Reports: no symptoms Subjective Patient on max pressors, MAPs 60s, very tachycardic due to sepsis, on Abx S/P exploratory laparotomy. G-tube on continuous suctioning. TO or today for ex lap repeat and possible closure Objective Last 24 Hour Vital Signs Date Time Temp Pulse Resp B/P (MAP) Pulse Ox O2 Delivery O2 Flow Rate FiO2 01/21/18 09:00 107 24 50 01/21/18 08:30 109 23 108/59 99 Mechanical Ventilator 60 01/21/18 08:00 105 01/21/18 08:00 99.4 110 20 113/62 100 Mechanical Ventilator 60 99.4 01/21/18 08:00 50 01/21/18 07:59 112/64 01/21/18 07:30 109 20 107/63 100 Mechanical Ventilator 60 01/21/18 07:16 100 18 50 7//18 07:00 110 21 112/64 100 Mechanical Ventilator 60 01/21/18 06:45 107 20 115/68 100 Mechanical Ventilator 60 01/21/18 06:30 101 21 115/72 100 Mechanical Ventilator 60 01/21/18 06:15 105 20 110/64 100 Mechanical Ventilator 60 // 06:00 105 21 116/69 100 Mechanical Ventilator 60 01/21/18 06:00 110/64 01/21/18 05:45 105 20 121/85 100 Mechanical Ventilator 60 01/21/18 05:30 102 22 106/62 100 Mechanical Ventilator 60 01/21/18 05:30 99 20 60 7/12/04 05:15 104 22 111/66 100 Mechanical Ventilator 60 01/21/18 05:00 119/70 01/21/18 05:00 105 23 119/70 100 Mechanical Ventilator 60 01/21/18 04:45 112 20 116/72 99 Mechanical Ventilator 60 7/5/18 04:30 104 20 119/68 100 Mechanical Ventilator 60 7/5/18 04:15 106 20 110/66 100 Mechanical Ventilator 60 7/5/18 04:02 60 7/5/18 04:01 106 7/5/18 04:00 108/61 7/5/18 04:00 98.9 101 20 108/61 100 Mechanical Ventilator 60 98.9 7/5/18 03:45 97 20 110/69 100 Mechanical Ventilator 60 7/5/18 03:30 104 23 94/51 100 Mechanical Ventilator 60 7/5/18 03:30 103 21 60 7/5/18 03:15 101 20 111/62 100 Mechanical Ventilator 60 7/5/18 03:02 104 20 115/75 100 Mechanical Ventilator 60 7/5/18 03:00 115/75 7/5/18 02:45 105 21 110/57 100 Mechanical Ventilator 60 7/5/18 02:30 102 21 110/58 100 Mechanical Ventilator 60 7/5/18 02:15 104 20 108/61 100 Mechanical Ventilator 60 7/5/18 02:00 102 21 114/67 100 Mechanical Ventilator 60 7/5/18 02:00 114/67 7/5/18 01:45 105 22 120/72 100 Mechanical Ventilator 60 7/5/18 01:30 104 20 107/56 100 Mechanical Ventilator 60 7/5/18 01:15 104 20 108/53 100 Mechanical Ventilator 60 7/5/18 01:07 102 24 60 7/5/18 01:00 102 20 109/59 100 Mechanical Ventilator 60 7/5/18 01:00 109/59 7/5/18 00:45 106 21 106/54 100 Mechanical Ventilator 60 7/5/18 00:30 109 22 109/53 100 Mechanical Ventilator 60 7/5/18 00:15 106 21 104/58 100 Mechanical Ventilator 60 7/5/18 00:00 110/59 7/5/18 00:00 106 7/5/18 00:00 60 7/5/18 00:00 98.8 107 21 110/59 100 Mechanical Ventilator 60 98.8 7/4/18 23:45 103 21 114/66 100 Mechanical Ventilator 60 7/4/18 23:30 101 22 118/65 100 Mechanical Ventilator 60 7/4/18 23:30 104 22 60 7/4/18 23:15 109 22 116/69 100 Mechanical Ventilator 60 7/4/18 23:00 110/69 7/4/18 23:00 103 21 110/69 100 Mechanical Ventilator 60 7/4/18 22:50 102/55 7/4/18 22:49 104 102/55 7/4/18 22:45 105 21 102/55 100 Mechanical Ventilator 60 7/4/18 22:30 106 21 99/55 100 Mechanical Ventilator 60 7/4/18 22:15 108 21 113/64 100 Mechanical Ventilator 60 7/4/18 22:00 107 21 103/55 100 Mechanical Ventilator 60 7/4/18 22:00 103/55 7/4/18 21:45 108 22 100/55 100 Mechanical Ventilator 60 7/4/18 21:30 108 22 101/49 100 Mechanical Ventilator 60 7/4/18 21:30 105 21 60 7/4/18 21:15 107 21 103/58 100 Mechanical Ventilator 60 7/4/18 21:00 105/56 7/4/18 21:00 108 22 105/56 100 Mechanical Ventilator 60 7/4/18 20:45 109 22 104/58 100 Mechanical Ventilator 60 7/4/18 20:30 111 22 105/52 100 Mechanical Ventilator 60 7/4/18 20:15 108 21 101/59 100 Mechanical Ventilator 80 7/4/18 20:00 109 22 111/54 100 Mechanical Ventilator 80 7/4/18 20:00 111/54 7/4/18 20:00 80 7/4/18 20:00 106 7/4/18 19:45 106 21 106/61 100 Mechanical Ventilator 80 7/4/18 19:30 98.8 108 22 100/59 100 Mechanical Ventilator 80 98.8 7/4/18 19:30 108 21 60 7/4/18 19:15 108 22 106/56 100 Mechanical Ventilator 80 7/4/18 19:00 106/58 7/4/18 19:00 111 22 106/58 100 Mechanical Ventilator 80 7/4/18 18:30 114 18 96/47 99 Mechanical Ventilator 80 7/4/18 18:00 99.3 112 19 103/60 99 Mechanical Ventilator 80 99.3 7/4/18 17:54 98/50 7/4/18 17:30 113 20 104/59 99 Mechanical Ventilator 80 01/20/18 17:00 116 21 98/50 99 Mechanical Ventilator 80 01/20/18 16:44 114 24 60 01/20/18 16:30 115 22 100/58 99 Mechanical Ventilator 80 01/20/18 16:00 116 01/20/18 16:00 99.6 117 25 102/50 99 Mechanical Ventilator 80 99.6 01/20/18 16:00 80 01/20/18 15:30 119 33 110/68 99 Mechanical Ventilator 80 01/20/18 15:29 119 21 60 01/20/18 15:10 99.9 01/20/18 15:00 119 33 105/61 99 Mechanical Ventilator 80 01/20/18 14:40 100.0 01/20/18 14:30 122 33 102/60 99 Mechanical Ventilator 80 01/20/18 14:00 128 28 123/62 99 Mechanical Ventilator 80 01/20/18 13:31 130 30 100 01/20/18 13:30 126 24 125/64 98 Mechanical Ventilator 80 01/20/18 13:00 125 26 106/60 100 Mechanical Ventilator 80 01/20/18 12:39 130 30 60 01/20/18 12:30 124 26 119/65 100 Mechanical Ventilator 80 01/20/18 12:05 133 105/60 01/20/18 12:04 105/60 01/20/18 12:00 100.0 133 26 105/55 100 Mechanical Ventilator 80 100.0 01/20/18 12:00 125 01/20/18 12:00 80 General Appearance: no apparent distress, on vent EENT: PERRL/EOMI Neck: non-tender Rhythm: NSR Cardiovascular: normal peripheral pulses Respiratory/Chest: chest wall non-tender Abdomen: decreased bowel sounds, guarding Extremities: normal range of motion Neurologic: motor weakness, sensory deficit, unresponsiveness Intake and Output 01/20/18 01/21/18 19:00 07:00 Intake Total 3597.70 ml 3632.00 ml Output Total 1990 ml 5050 ml Balance 1607.70 ml -1418.00 ml Intake Oral 0 ml 0 ml IV Total 3597.70 ml 3632.00 ml Output Urine Total 1390 ml 4250 ml Stool Total 100 ml 200 ml Gastric Drainage Total 150 ml Drainage Total 500 ml 450 ml Laboratory Tests Test 01/21/18 05:46 White Blood Count 17.1 K/UL (4.8-10.8) H Red Blood Count 3.44 M/UL (4.20-5.40) L Hemoglobin 10.4 G/DL (12.0-16.0) #L Hematocrit 30.5 % (37.0-47.0) #L Mean Corpuscular Volume 89 FL (80-99) Mean Corpuscular Hemoglobin 30.3 PG (27.0-31.0) Mean Corpuscular Hemoglobin Concent 34.1 G/DL (32.0-36.0) Red Cell Distribution Width 11.6 % (11.6-14.8) Platelet Count 104 K/UL (150-450) L Mean Platelet Volume 7.9 FL (6.5-10.1) Neutrophils (%) (Auto) % (45.0-75.0) Lymphocytes (%) (Auto) % (20.0-45.0) Monocytes (%) (Auto) % (1.0-10.0) Eosinophils (%) (Auto) % (0.0-3.0) Basophils (%) (Auto) % (0.0-2.0) Differential Total Cells Counted 100 Neutrophils % (Manual) 83 % (45-75) H Lymphocytes % (Manual) 5 % (20-45) L Monocytes % (Manual) 3 % (1-10) Eosinophils % (Manual) 0 % (0-3) Basophils % (Manual) 0 % (0-2) Band Neutrophils 9 % (0-8) H Platelet Estimate Decreased L Platelet Morphology Normal Hypochromasia 1+ Anisocytosis 1+ Prothrombin Time 16.8 SEC (9.30-11.50) H Prothromb Time International Ratio 1.6 (0.9-1.1) H Activated Partial Thromboplast Time 52 SEC (23-33) H Sodium Level 139 MMOL/L (136-145) Potassium Level 2.5 MMOL/L (3.5-5.1) *L Chloride Level 109 MMOL/L (98-107) H Carbon Dioxide Level 18 MMOL/L (21-32) L Anion Gap 12 mmol/L (5-15) Blood Urea Nitrogen 35 mg/dL (7-18) H Creatinine 2.3 MG/DL (0.55-1.30) H Estimat Glomerular Filtration Rate 29.1 mL/min (>60) Glucose Level 100 MG/DL (74-106) Lactic Acid Level 1.50 mmol/L (0.4-2.0) Uric Acid 6.0 MG/DL (2.6-7.2) Calcium Level 6.5 MG/DL (8.5-10.1) L Phosphorus Level 3.5 MG/DL (2.5-4.9) Magnesium Level 2.1 MG/DL (1.8-2.4) Total Bilirubin 1.2 MG/DL (0.2-1.0) H Direct Bilirubin 0.8 MG/DL (0.0-0.3) H Aspartate Amino Transf (AST/SGOT) 455 U/L (15-37) H Alanine Aminotransferase (ALT/SGPT) 713 U/L (12-78) H Alkaline Phosphatase 88 U/L (46-116) Troponin I 0.001 ng/mL (0.000-0.056) C-Reactive Protein, Quantitative 27.0 mg/dL (0.00-0.90) H Pro-B-Type Natriuretic Peptide 7214 pg/mL (0-125) H Total Protein 4.6 G/DL (6.4-8.2) L Albumin 1.6 G/DL (3.4-5.0) L Globulin 3.0 g/dL Albumin/Globulin Ratio 0.5 (1.0-2.7) L Lipase 224 U/L (73-393) Microbiology Date/Time Source Procedure Growth Status 01/19/18 12:55 Blood Blood Culture - Preliminary NO GROWTH AFTER 24 HOURS Resulted 01/19/18 12:45 Blood Blood Culture - Preliminary NO GROWTH AFTER 24 HOURS Resulted 01/19/18 04:00 Sputum Gram Stain - Final Resulted 01/19/18 04:00 Sputum Culture - Preliminary Acinetobacter Baumannii Complx Gram Negative Bacillus 2 Resulted 01/18/18 17:58 Urine,Clean Catch Urine Culture - Preliminary NO GROWTH AFTER 24 HOURS Resulted 01/19/18 20:10 Abdominal Fluid Gram Stain - Final Resulted 01/19/18 20:10 Abdominal Fluid Aerobic Culture Pending Resulted 01/19/18 20:10 Abdominal Fluid Anaerobic Culture Pending Resulted Rob Cote M.D. Jan 21, 2018 11:40
[2018-01-21] MEDS ORDERED: Esmolol 100mg/10ml Inj ONE (11:46)
--- NOTE | 2018-01-21 12:17 | Brief Operative Note ---
Immediate Post Operative Note Operative Note Pre-op Diagnosis: s/p exploratory laparotomy, abdominal washout, open abdomen Procedure: planned re-exploration of abdomen, sigmoid colectomy, takedown of splenic flexure, left hemicolectomy, creation of transverse colostomy, abdominal closure Post-op Diagnosis: s/p exploratory laparotomy, abdominal washout, open abdomen Surgeon: ac Anesthesiologist: Jaskaran Anesthesia: general Specimen: yes - 1. sigmoid colectomy 2. omentectomy 3. splenic flexure with decending colon Complications: none Condition: unstable Fluids: see records Estimated Blood Loss: volume - 150 Drains: RENÉ Implant(s) used?: No Marshall Ferguson Jan 21, 2018 12:17
--- NOTE | 2018-01-21 12:46 | Nephrology Progress Note ---
Assessment/Plan Problem List: (1) Acute on chronic respiratory failure Assessment: ATN (2) Sepsis Assessment: shock (3) Seizure disorder Assessment Septic shock on pressors, hence Oliguria and acute renal failure s/p 2 OR visits , for peritonitis Others: (1) Acute on chronic respiratory failure (2) Sepsis (3) Anoxic brain injury (4) Feeding by G-tube (5) Tachycardia Plan K supplement Hydrate albumin bollous hydrocortisone Antibiotics monitor renal parameters Per ID Pulm Surg Subjective ROS Limited/Unobtainable: Yes Objective Objective Last 24 Hour Vital Signs Date Time Temp Pulse Resp B/P (MAP) Pulse Ox O2 Delivery O2 Flow Rate FiO2 01/21/18 12:30 98.3 104 107/66 98.3 01/21/18 12:15 109 7 12:15 50 01/21/18 12:12 107 19 50 7/12/04 09:00 107 24 50 /12/04 08:30 109 23 108/59 99 Mechanical Ventilator 60 01/21/18 08:00 105 01/21/18 08:00 99.4 110 20 113/62 100 Mechanical Ventilator 60 99.4 01/21/18 08:00 50 7/18 07:59 112/64 7//18 07:30 109 20 107/63 100 Mechanical Ventilator 60 7/12/04 07:16 100 18 50 7//18 07:00 110 21 112/64 100 Mechanical Ventilator 60 7//18 06:45 107 20 115/68 100 Mechanical Ventilator 60 /12/04 06:30 101 21 115/72 100 Mechanical Ventilator 60 01/21/18 06:15 105 20 110/64 100 Mechanical Ventilator 60 7/18 06:00 105 21 116/69 100 Mechanical Ventilator 60 7//18 06:00 110/64 7//18 05:45 105 20 121/85 100 Mechanical Ventilator 60 /12/04 05:30 102 22 106/62 100 Mechanical Ventilator 60 7/18 05:30 99 20 60 7//18 05:15 104 22 111/66 100 Mechanical Ventilator 60 7//18 05:00 119/70 7//18 05:00 105 23 119/70 100 Mechanical Ventilator 60 /18 04:45 112 20 116/72 99 Mechanical Ventilator 60 7/5/18 04:30 104 20 119/68 100 Mechanical Ventilator 60 7/5/18 04:15 106 20 110/66 100 Mechanical Ventilator 60 7/5/18 04:02 60 7/5/18 04:01 106 7/5/18 04:00 108/61 7/5/18 04:00 98.9 101 20 108/61 100 Mechanical Ventilator 60 98.9 7/5/18 03:45 97 20 110/69 100 Mechanical Ventilator 60 7/5/18 03:30 104 23 94/51 100 Mechanical Ventilator 60 7/5/18 03:30 103 21 60 7/5/18 03:15 101 20 111/62 100 Mechanical Ventilator 60 7/5/18 03:02 104 20 115/75 100 Mechanical Ventilator 60 7/5/18 03:00 115/75 7/5/18 02:45 105 21 110/57 100 Mechanical Ventilator 60 7/5/18 02:30 102 21 110/58 100 Mechanical Ventilator 60 7/5/18 02:15 104 20 108/61 100 Mechanical Ventilator 60 7/5/18 02:00 102 21 114/67 100 Mechanical Ventilator 60 7/5/18 02:00 114/67 7/5/18 01:45 105 22 120/72 100 Mechanical Ventilator 60 7/5/18 01:30 104 20 107/56 100 Mechanical Ventilator 60 7/5/18 01:15 104 20 108/53 100 Mechanical Ventilator 60 7/5/18 01:07 102 24 60 7/5/18 01:00 102 20 109/59 100 Mechanical Ventilator 60 7/5/18 01:00 109/59 7/5/18 00:45 106 21 106/54 100 Mechanical Ventilator 60 7/5/18 00:30 109 22 109/53 100 Mechanical Ventilator 60 7/5/18 00:15 106 21 104/58 100 Mechanical Ventilator 60 7/5/18 00:00 110/59 7/5/18 00:00 106 7/5/18 00:00 60 7/5/18 00:00 98.8 107 21 110/59 100 Mechanical Ventilator 60 98.8 7/4/18 23:45 103 21 114/66 100 Mechanical Ventilator 60 7/4/18 23:30 101 22 118/65 100 Mechanical Ventilator 60 7/4/18 23:30 104 22 60 7/4/18 23:15 109 22 116/69 100 Mechanical Ventilator 60 7/4/18 23:00 110/69 7/4/18 23:00 103 21 110/69 100 Mechanical Ventilator 60 7/4/18 22:50 102/55 7/4/18 22:49 104 102/55 7/4/18 22:45 105 21 102/55 100 Mechanical Ventilator 60 7/4/18 22:30 106 21 99/55 100 Mechanical Ventilator 60 7/4/18 22:15 108 21 113/64 100 Mechanical Ventilator 60 7/4/18 22:00 107 21 103/55 100 Mechanical Ventilator 60 7/4/18 22:00 103/55 7/4/18 21:45 108 22 100/55 100 Mechanical Ventilator 60 7/4/18 21:30 108 22 101/49 100 Mechanical Ventilator 60 7/4/18 21:30 105 21 60 7/4/18 21:15 107 21 103/58 100 Mechanical Ventilator 60 7/4/18 21:00 105/56 7/4/18 21:00 108 22 105/56 100 Mechanical Ventilator 60 7/4/18 20:45 109 22 104/58 100 Mechanical Ventilator 60 7/4/18 20:30 111 22 105/52 100 Mechanical Ventilator 60 7/4/18 20:15 108 21 101/59 100 Mechanical Ventilator 80 7/4/18 20:00 109 22 111/54 100 Mechanical Ventilator 80 7/4/18 20:00 111/54 7/4/18 20:00 80 7/4/18 20:00 106 7/4/18 19:45 106 21 106/61 100 Mechanical Ventilator 80 7/4/18 19:30 98.8 108 22 100/59 100 Mechanical Ventilator 80 98.8 7/4/18 19:30 108 21 60 7/4/18 19:15 108 22 106/56 100 Mechanical Ventilator 80 7/4/18 19:00 106/58 7/4/18 19:00 111 22 106/58 100 Mechanical Ventilator 80 7/4/18 18:30 114 18 96/47 99 Mechanical Ventilator 80 7/4/18 18:00 99.3 112 19 103/60 99 Mechanical Ventilator 80 99.3 7/4/18 17:54 98/50 7/4/18 17:30 113 20 104/59 99 Mechanical Ventilator 80 7/4/18 17:00 116 21 98/50 99 Mechanical Ventilator 80 01/20/18 16:44 114 24 60 01/20/18 16:30 115 22 100/58 99 Mechanical Ventilator 80 01/20/18 16:00 116 01/20/18 16:00 99.6 117 25 102/50 99 Mechanical Ventilator 80 99.6 01/20/18 16:00 80 01/20/18 15:30 119 33 110/68 99 Mechanical Ventilator 80 01/20/18 15:29 119 21 60 01/20/18 15:10 99.9 01/20/18 15:00 119 33 105/61 99 Mechanical Ventilator 80 01/20/18 14:40 100.0 01/20/18 14:30 122 33 102/60 99 Mechanical Ventilator 80 01/20/18 14:00 128 28 123/62 99 Mechanical Ventilator 80 01/20/18 13:31 130 30 100 01/20/18 13:30 126 24 125/64 98 Mechanical Ventilator 80 01/20/18 13:00 125 26 106/60 100 Mechanical Ventilator 80 Intake and Output 01/20/18 01/21/18 19:00 07:00 Intake Total 3597.70 ml 3632.00 ml Output Total 1990 ml 5050 ml Balance 1607.70 ml -1418.00 ml Intake Oral 0 ml 0 ml IV Total 3597.70 ml 3632.00 ml Output Urine Total 1390 ml 4250 ml Stool Total 100 ml 200 ml Gastric Drainage Total 150 ml Drainage Total 500 ml 450 ml Laboratory Tests 01/21/18 05:46: White Blood Count 17.1H, Red Blood Count 3.44L, Hemoglobin 10.4#L, Hematocrit 30.5#L, Mean Corpuscular Volume 89, Mean Corpuscular Hemoglobin 30.3, Mean Corpuscular Hemoglobin Concent 34.1, Red Cell Distribution Width 11.6, Platelet Count 104L, Mean Platelet Volume 7.9, Neutrophils (%) (Auto) , Lymphocytes (%) ( Auto) , Monocytes (%) (Auto) , Eosinophils (%) (Auto) , Basophils (%) (Auto) , Differential Total Cells Counted 100, Neutrophils % (Manual) 83H, Lymphocytes % (Manual) 5L, Monocytes % (Manual) 3, Eosinophils % (Manual) 0, Basophils % ( Manual) 0, Band Neutrophils 9H, Platelet Estimate DecreasedL, Platelet Morphology Normal, Hypochromasia 1+, Anisocytosis 1+, Prothrombin Time 16.8H, Prothromb Time International Ratio 1.6H, Activated Partial Thromboplast Time 52H , Sodium Level 139, Potassium Level 2.5*L, Chloride Level 109H, Carbon Dioxide Level 18L, Anion Gap 12, Blood Urea Nitrogen 35H, Creatinine 2.3H, Estimat Glomerular Filtration Rate 29.1, Glucose Level 100, Lactic Acid Level 1.50, Uric Acid 6.0, Calcium Level 6.5L, Phosphorus Level 3.5, Magnesium Level 2.1, Total Bilirubin 1.2H, Direct Bilirubin 0.8H, Aspartate Amino Transf (AST/SGOT) 455H, Alanine Aminotransferase (ALT/SGPT) 713H, Alkaline Phosphatase 88, Troponin I 0.001, C-Reactive Protein, Quantitative 27.0H, Pro-B-Type Natriuretic Peptide 7214H, Total Protein 4.6L, Albumin 1.6L, Globulin 3.0, Albumin/Globulin Ratio 0.5L, Lipase 224 Height (Feet): 5 Height (Inches): 3.00 Weight (Pounds): 199 General Appearance: no apparent distress Cardiovascular: tachycardia Respiratory/Chest: decreased breath sounds Abdomen: other - per surgery Objective no change LORRIE PERAZA Jan 21, 2018 12:46
[2018-01-21] MEDS ORDERED: Vancomycin 1.5 GM/D5W 250ML IVPB ONE (13:00)
[2018-01-21] MEDS: levETIRAcetam 1,000mg/NS100ml 100 ML IVPB SCH ×2 (13:15→21:29)
[2018-01-21] MEDS: Pantoprazole Inj IV SCH ×2 (13:30→21:29)
--- NOTE | 2018-01-21 13:36 | Diagnostic Imaging Report ---
Indication: Dyspnea Technique: XRAY Chest 1v Comparison: 01/18/2018 FINDINGS/IMPRESSION: Tracheostomy tube in place. Heart size and mediastinal contours stable. There is worsening of aeration with increased interstitial opacification/edema and hazy bilateral airspace opacities which may be related to a combination of atelectasis, layering pleural fluid and/or pneumonia. No pneumothorax. Osseous structures stable.
[2018-01-21] MEDS: PHENYTOIN IVPB SCH ×2 (13:45→21:28)
[2018-01-21] MEDS: NS IVPB SCH ×2 (13:45→21:28)
--- NOTE | 2018-01-21 15:35 | General Progress Note ---
Assessment/Plan Status: unchanged Assessment/Plan 1. Leukocytosis, likely reactive. --> The patient with lactic acidosis. Lactic acid 7.4. --> Currently on pressors. Rule out infectious etiology. --> On broad-spectrum antibiotics and antifungals. --> Closely monitor for improvement. 2. Erythrocytosis. --> Erythrocytes 20,000. Prior laboratories have been reviewed. This is new onset for the patient back in 2016. She has never had erythrocyte count this elevated. --> Again obtain JAK2 level. 3. Septic shock, closely monitor, --> on antibiotics, broad spectrum. 4. Coagulopathy. Rule out disseminated intravascular coagulation. 5. Seizure disorder, currently on antiseizure medication. 6. Respiratory failure, status post trach and vent. 7. Dysphagia, status post gastrostomy tube. Subjective Date patient seen: Jan 20, 2018 ROS Limited/Unobtainable: Yes Allergies: Coded Allergies: No Known Allergies (Unverified , 01/18/15) All Systems: reviewed and negative except above Subjective Pt remains comatose. Scheduled for surgery tomorrow. Objective Last 24 Hour Vital Signs Date Time Temp Pulse Resp B/P (MAP) Pulse Ox O2 Delivery O2 Flow Rate FiO2 01/21/18 15:25 98 15 30 01/21/18 15:00 97 15 99/64 100 Mechanical Ventilator 50.0 01/21/18 14:30 99 15 101/58 100 Mechanical Ventilator 50.0 01/21/18 14:00 103 14 106/63 100 Mechanical Ventilator 50.0 01/21/18 13:30 101 15 103/67 100 Mechanical Ventilator 50.0 01/21/18 13:15 102 21 101/65 100 Mechanical Ventilator 50.0 01/21/18 13:04 101 16 40 01/21/18 13:00 101 109/62 01/21/18 12:48 209.8 100 12 100 01/21/18 12:45 102 105/68 01/21/18 12:30 98.3 104 107/66 98.3 01/21/18 12:15 109 01/21/18 12:15 50 01/21/18 12:12 107 19 50 01/21/18 09:00 107 24 50 01/21/18 08:30 109 23 108/59 99 Mechanical Ventilator 60 01/21/18 08:00 105 7/5/18 08:00 99.4 110 20 113/62 100 Mechanical Ventilator 60 99.4 7/5/18 08:00 50 7/5/18 07:59 112/64 7/5/18 07:30 109 20 107/63 100 Mechanical Ventilator 60 7/5/18 07:16 100 18 50 7/5/18 07:00 110 21 112/64 100 Mechanical Ventilator 60 7/5/18 06:45 107 20 115/68 100 Mechanical Ventilator 60 7/5/18 06:30 101 21 115/72 100 Mechanical Ventilator 60 7/5/18 06:15 105 20 110/64 100 Mechanical Ventilator 60 7/5/18 06:00 105 21 116/69 100 Mechanical Ventilator 60 7/5/18 06:00 110/64 7/5/18 05:45 105 20 121/85 100 Mechanical Ventilator 60 7/5/18 05:30 102 22 106/62 100 Mechanical Ventilator 60 7/5/18 05:30 99 20 60 7/5/18 05:15 104 22 111/66 100 Mechanical Ventilator 60 7/5/18 05:00 119/70 7/5/18 05:00 105 23 119/70 100 Mechanical Ventilator 60 7/5/18 04:45 112 20 116/72 99 Mechanical Ventilator 60 7/5/18 04:30 104 20 119/68 100 Mechanical Ventilator 60 7/5/18 04:15 106 20 110/66 100 Mechanical Ventilator 60 7/5/18 04:02 60 7/5/18 04:01 106 7/5/18 04:00 108/61 7/5/18 04:00 98.9 101 20 108/61 100 Mechanical Ventilator 60 98.9 7/5/18 03:45 97 20 110/69 100 Mechanical Ventilator 60 7/5/18 03:30 104 23 94/51 100 Mechanical Ventilator 60 7/5/18 03:30 103 21 60 7/5/18 03:15 101 20 111/62 100 Mechanical Ventilator 60 7/5/18 03:02 104 20 115/75 100 Mechanical Ventilator 60 7/5/18 03:00 115/75 7/5/18 02:45 105 21 110/57 100 Mechanical Ventilator 60 7/5/18 02:30 102 21 110/58 100 Mechanical Ventilator 60 7/5/18 02:15 104 20 108/61 100 Mechanical Ventilator 60 7/5/18 02:00 102 21 114/67 100 Mechanical Ventilator 60 7/5/18 02:00 114/67 7/5/18 01:45 105 22 120/72 100 Mechanical Ventilator 60 7/5/18 01:30 104 20 107/56 100 Mechanical Ventilator 60 7/5/18 01:15 104 20 108/53 100 Mechanical Ventilator 60 7/5/18 01:07 102 24 60 7/5/18 01:00 102 20 109/59 100 Mechanical Ventilator 60 7/5/18 01:00 109/59 7/5/18 00:45 106 21 106/54 100 Mechanical Ventilator 60 7/5/18 00:30 109 22 109/53 100 Mechanical Ventilator 60 7/5/18 00:15 106 21 104/58 100 Mechanical Ventilator 60 7/5/18 00:00 110/59 7/5/18 00:00 106 7/5/18 00:00 60 7/5/18 00:00 98.8 107 21 110/59 100 Mechanical Ventilator 60 98.8 7/4/18 23:45 103 21 114/66 100 Mechanical Ventilator 60 7/4/18 23:30 101 22 118/65 100 Mechanical Ventilator 60 7/4/18 23:30 104 22 60 7/4/18 23:15 109 22 116/69 100 Mechanical Ventilator 60 7/4/18 23:00 110/69 7/4/18 23:00 103 21 110/69 100 Mechanical Ventilator 60 7/4/18 22:50 102/55 7/4/18 22:49 104 102/55 7/4/18 22:45 105 21 102/55 100 Mechanical Ventilator 60 7/4/18 22:30 106 21 99/55 100 Mechanical Ventilator 60 7/4/18 22:15 108 21 113/64 100 Mechanical Ventilator 60 7/4/18 22:00 107 21 103/55 100 Mechanical Ventilator 60 7/4/18 22:00 103/55 7/4/18 21:45 108 22 100/55 100 Mechanical Ventilator 60 7/4/18 21:30 108 22 101/49 100 Mechanical Ventilator 60 7/4/18 21:30 105 21 60 7/4/18 21:15 107 21 103/58 100 Mechanical Ventilator 60 7/4/18 21:00 105/56 7/4/18 21:00 108 22 105/56 100 Mechanical Ventilator 60 01/20/18 20:45 109 22 104/58 100 Mechanical Ventilator 60 18 20:30 111 22 105/52 100 Mechanical Ventilator 60 01/20/18 20:15 108 21 101/59 100 Mechanical Ventilator 80 01/20/18 20:00 109 22 111/54 100 Mechanical Ventilator 80 18 20:00 111/54 01/20/18 20:00 80 01/20/18 20:00 106 01/20/18 19:45 106 21 106/61 100 Mechanical Ventilator 80 01/20/18 19:30 98.8 108 22 100/59 100 Mechanical Ventilator 80 98.8 01/20/18 19:30 108 21 60 01/20/18 19:15 108 22 106/56 100 Mechanical Ventilator 80 01/20/18 19:00 106/58 01/20/18 19:00 111 22 106/58 100 Mechanical Ventilator 80 01/20/18 18:30 114 18 96/47 99 Mechanical Ventilator 80 01/20/18 18:00 99.3 112 19 103/60 99 Mechanical Ventilator 80 99.3 01/20/18 17:54 98/50 01/20/18 17:30 113 20 104/59 99 Mechanical Ventilator 80 01/20/18 17:00 116 21 98/50 99 Mechanical Ventilator 80 01/20/18 16:44 114 24 60 01/20/18 16:30 115 22 100/58 99 Mechanical Ventilator 80 01/20/18 16:00 116 01/20/18 16:00 99.6 117 25 102/50 99 Mechanical Ventilator 80 99.6 01/20/18 16:00 80 01/20/18 15:30 119 33 110/68 99 Mechanical Ventilator 80 Intake and Output 01/20/18 01/21/18 19:00 07:00 Intake Total 3597.70 ml 3632.00 ml Output Total 1990 ml 5050 ml Balance 1607.70 ml -1418.00 ml Intake Oral 0 ml 0 ml IV Total 3597.70 ml 3632.00 ml Output Urine Total 1390 ml 4250 ml Stool Total 100 ml 200 ml Gastric Drainage Total 150 ml Drainage Total 500 ml 450 ml Laboratory Tests 01/21/18 05:46: White Blood Count 17.1H, Red Blood Count 3.44L, Hemoglobin 10.4#L, Hematocrit 30.5#L, Mean Corpuscular Volume 89, Mean Corpuscular Hemoglobin 30.3, Mean Corpuscular Hemoglobin Concent 34.1, Red Cell Distribution Width 11.6, Platelet Count 104L, Mean Platelet Volume 7.9, Neutrophils (%) (Auto) , Lymphocytes (%) ( Auto) , Monocytes (%) (Auto) , Eosinophils (%) (Auto) , Basophils (%) (Auto) , Differential Total Cells Counted 100, Neutrophils % (Manual) 83H, Lymphocytes % (Manual) 5L, Monocytes % (Manual) 3, Eosinophils % (Manual) 0, Basophils % ( Manual) 0, Band Neutrophils 9H, Platelet Estimate DecreasedL, Platelet Morphology Normal, Hypochromasia 1+, Anisocytosis 1+, Prothrombin Time 16.8H, Prothromb Time International Ratio 1.6H, Activated Partial Thromboplast Time 52H , Sodium Level 139, Potassium Level 2.5*L, Chloride Level 109H, Carbon Dioxide Level 18L, Anion Gap 12, Blood Urea Nitrogen 35H, Creatinine 2.3H, Estimat Glomerular Filtration Rate 29.1, Glucose Level 100, Lactic Acid Level 1.50, Uric Acid 6.0, Calcium Level 6.5L, Phosphorus Level 3.5, Magnesium Level 2.1, Total Bilirubin 1.2H, Direct Bilirubin 0.8H, Aspartate Amino Transf (AST/SGOT) 455H, Alanine Aminotransferase (ALT/SGPT) 713H, Alkaline Phosphatase 88, Troponin I 0.001, C-Reactive Protein, Quantitative 27.0H, Pro-B-Type Natriuretic Peptide 7214H, Total Protein 4.6L, Albumin 1.6L, Globulin 3.0, Albumin/Globulin Ratio 0.5L, Lipase 224 Height (Feet): 5 Height (Inches): 3.00 Weight (Pounds): 199 General Appearance: lethargic, confused, mild distress Neck: normal alignment Cardiovascular: tachycardia Respiratory/Chest: decreased breath sounds Abdomen: soft Isaiah Noriega MD Jan 21, 2018 15:35
[2018-01-21] MEDS ORDERED: Lidocaine 1% Plain 30 ml INJ PRN (17:30)
[2018-01-21] MEDS ORDERED: Heparin 2000 units/Ns 1000ml INJ PRN (17:30)
--- NOTE | 2018-01-21 18:03 | Internal Med Progress Note ---
Subjective Date of Service: Jan 21, 2018 Physician Name Adrian Porter Attending Physician Guillermo Morel MD Current Medications Medications (Trade) Dose Ordered Sig/Kel Route PRN Reason Start Time Stop Time Status Last Admin Dose Admin Acetaminophen (Tylenol) 650 mg Q4H PRN ORAL FEVER 01/18/18 13:00 02/17/18 08:59 Albuterol/ Ipratropium (Albuterol/ Ipratropium) 3 ml Q4H PRN HHN Shortness of Breath 01/18/18 15:15 01/23/18 07:14 Chlorhexidine Gluconate (Neela-Hex 2%) 1 applic DAILY@1999 TOPIC 01/20/18 20:00 02/19/18 19:59 01/20/18 20:08 Chlorhexidine Gluconate (Neela-Hex 2%) 1 applic DAILY@1999 TOPIC 01/21/18 20:00 02/20/18 19:59 Dextrose (Dextrose 50%) 25 ml STAT PRN IV Hypoglycemia 01/19/18 07:15 02/17/18 07:14 Dextrose (Dextrose 50%) 50 ml STAT PRN IV Hypoglycemia 01/19/18 07:30 02/17/18 07:29 Dextrose/Sodium Chloride 1,000 ml @ 125 mls/hr Q8H IV 01/21/18 12:30 02/20/18 12:29 01/21/18 13:25 Heparin Sodium (Porcine) (Heparin 5000 units/ml) 5,000 units EVERY 12 HOURS SUBQ 01/18/18 21:00 02/17/18 08:59 01/20/18 21:14 Heparin Sodium/ Sodium Chloride (Heparin 2000 units/Ns 1000ml premix) 2,000 unit ONCE PRN INJ FOR PICC PLACEMENT 01/21/18 17:30 01/22/18 23:59 Hydrocortisone (Solu-CORTEF) 100 mg EVERY 8 HOURS IV 01/20/18 22:00 02/19/18 21:59 01/21/18 13:33 Levetiracetam 100 ml @ 400 mls/hr Q12HR IVPB 01/18/18 22:30 02/17/18 22:29 01/21/18 13:15 Lidocaine HCl (Xylocaine 1% 30ml) 30 ml ONCE PRN INJ PICC PLACEMENT 01/21/18 17:30 01/22/18 23:59 Lorazepam (Ativan 2mg/ml 1ml) 2 mg Q2H PRN IV For Anxiety 01/18/18 13:15 01/25/18 07:14 Meropenem 1 gm/ Sodium Chloride 55 ml @ 110 mls/hr Q12H IVPB 01/18/18 19:30 01/23/18 19:29 01/21/18 07:03 Micafungin Sodium 100 mg/Sodium Chloride 110 ml @ 110 mls/hr Q24H IVPB 01/18/18 20:30 01/25/18 20:29 01/20/18 20:08 Morphine Sulfate (Morphine Sulfate) 4 mg Q4H PRN IVP Severe Pain (Pain Scale 7-10) 01/18/18 15:15 01/25/18 07:14 Norepinephrine Bitartrate 8 mg/ Dextrose 508 ml @ 0 mls/hr Q24H IV 01/18/18 17:00 02/17/18 16:59 01/21/18 07:59 Ondansetron HCl (Zofran) 4 mg Q6H PRN IVP Nausea & Vomiting 01/18/18 13:15 02/17/18 07:14 Pantoprazole (Protonix) 40 mg Q12HR IV 01/19/18 21:00 02/17/18 08:59 01/21/18 13:30 Phenylephrine HCl 50 mg/Dextrose 250 ml @ 0 mls/hr Q24H IV 01/18/18 15:00 02/17/18 14:59 01/20/18 22:49 Phenytoin 150 mg/ Sodium Chloride 58 ml @ 114 mls/hr EVERY 12 HOURS IVPB 01/18/18 22:30 02/17/18 22:29 01/21/18 13:45 Polyethylene Glycol (Miralax) 17 gm DAILYPRN PRN ORAL Constipation 01/19/18 07:15 02/17/18 07:14 Vancomycin HCl (Vanco rx to dose) 1 ea DAILY PRN MISC Per rx protocol 01/21/18 11:30 02/20/18 11:29 Allergies: Coded Allergies: No Known Allergies (Unverified , 01/18/15) Subjective 37 YO F admitted with abdominal distention. S/P cardiac arrest. S/P exploratory laparotomy 01/19/18. S/P sigmoidectomy and hemicolectomy 01/21/18. Cover for Int Efraín-Dr Morel. Intubated and sedated. ICU Objective Last Vital Signs Date Time Temp Pulse Resp B/P (MAP) Pulse Ox O2 Delivery O2 Flow Rate FiO2 01/21/18 17:30 107 16 101/65 100 Mechanical Ventilator 30.0 01/21/18 16:40 30 01/21/18 16:30 98.3 98.3 Laboratory Tests Test 01/21/18 05:46 White Blood Count 17.1 K/UL (4.8-10.8) H Red Blood Count 3.44 M/UL (4.20-5.40) L Hemoglobin 10.4 G/DL (12.0-16.0) #L Hematocrit 30.5 % (37.0-47.0) #L Mean Corpuscular Volume 89 FL (80-99) Mean Corpuscular Hemoglobin 30.3 PG (27.0-31.0) Mean Corpuscular Hemoglobin Concent 34.1 G/DL (32.0-36.0) Red Cell Distribution Width 11.6 % (11.6-14.8) Platelet Count 104 K/UL (150-450) L Mean Platelet Volume 7.9 FL (6.5-10.1) Neutrophils (%) (Auto) % (45.0-75.0) Lymphocytes (%) (Auto) % (20.0-45.0) Monocytes (%) (Auto) % (1.0-10.0) Eosinophils (%) (Auto) % (0.0-3.0) Basophils (%) (Auto) % (0.0-2.0) Differential Total Cells Counted 100 Neutrophils % (Manual) 83 % (45-75) H Lymphocytes % (Manual) 5 % (20-45) L Monocytes % (Manual) 3 % (1-10) Eosinophils % (Manual) 0 % (0-3) Basophils % (Manual) 0 % (0-2) Band Neutrophils 9 % (0-8) H Platelet Estimate Decreased L Platelet Morphology Normal Hypochromasia 1+ Anisocytosis 1+ Prothrombin Time 16.8 SEC (9.30-11.50) H Prothromb Time International Ratio 1.6 (0.9-1.1) H Activated Partial Thromboplast Time 52 SEC (23-33) H Sodium Level 139 MMOL/L (136-145) Potassium Level 2.5 MMOL/L (3.5-5.1) *L Chloride Level 109 MMOL/L (98-107) H Carbon Dioxide Level 18 MMOL/L (21-32) L Anion Gap 12 mmol/L (5-15) Blood Urea Nitrogen 35 mg/dL (7-18) H Creatinine 2.3 MG/DL (0.55-1.30) H Estimat Glomerular Filtration Rate 29.1 mL/min (>60) Glucose Level 100 MG/DL (74-106) Lactic Acid Level 1.50 mmol/L (0.4-2.0) Uric Acid 6.0 MG/DL (2.6-7.2) Calcium Level 6.5 MG/DL (8.5-10.1) L Phosphorus Level 3.5 MG/DL (2.5-4.9) Magnesium Level 2.1 MG/DL (1.8-2.4) Total Bilirubin 1.2 MG/DL (0.2-1.0) H Direct Bilirubin 0.8 MG/DL (0.0-0.3) H Aspartate Amino Transf (AST/SGOT) 455 U/L (15-37) H Alanine Aminotransferase (ALT/SGPT) 713 U/L (12-78) H Alkaline Phosphatase 88 U/L (46-116) Troponin I 0.001 ng/mL (0.000-0.056) C-Reactive Protein, Quantitative 27.0 mg/dL (0.00-0.90) H Pro-B-Type Natriuretic Peptide 7214 pg/mL (0-125) H Total Protein 4.6 G/DL (6.4-8.2) L Albumin 1.6 G/DL (3.4-5.0) L Globulin 3.0 g/dL Albumin/Globulin Ratio 0.5 (1.0-2.7) L Lipase 224 U/L (73-393) Microbiology Date/Time Source Procedure Growth Status 01/19/18 12:55 Blood Blood Culture - Preliminary NO GROWTH AFTER 24 HOURS Resulted 01/19/18 12:45 Blood Blood Culture - Preliminary NO GROWTH AFTER 24 HOURS Resulted 01/19/18 04:00 Sputum Gram Stain - Final Resulted 01/19/18 04:00 Sputum Culture - Preliminary Acinetobacter Baumannii Complx Gram Negative Bacillus 2 Resulted 01/19/18 20:10 Abdominal Fluid Gram Stain - Final Resulted 01/19/18 20:10 Abdominal Fluid Aerobic Culture - Preliminary NO GROWTH AFTER 24 HOURS Resulted 01/19/18 20:10 Abdominal Fluid Anaerobic Culture Pending Resulted Intake and Output 01/20/18 01/21/18 19:00 07:00 Intake Total 3597.70 ml 3632.00 ml Output Total 1990 ml 5050 ml Balance 1607.70 ml -1418.00 ml Intake Oral 0 ml 0 ml IV Total 3597.70 ml 3632.00 ml Output Urine Total 1390 ml 4250 ml Stool Total 100 ml 200 ml Gastric Drainage Total 150 ml Drainage Total 500 ml 450 ml Objective General Appearance: WD/WN, lethargic EENT: normal ENT inspection Neck: non-tender, normal alignment, supple, other - tracheostomy Cardiovascular: normal peripheral pulses, normal rate, regular rhythm, regularly irregular, no gallop/murmur, no JVD Respiratory/Chest: Mech vent; chest wall non-tender, no accessory muscle use, rhonchi - bilaterally, other - Mech Vent Abdomen: normal bowel sounds, non tender, soft, no organomegaly, no mass Extremities: normal inspection Skin: normal pigmentation, warm/dry Assessment/Plan Problem List: (1) Incarcerated ventral hernia Assessment & Plan: S/P exploratory laparotomy on 01/19/18-see surgery note. S/P sigmoidectomy, omentectomy and hemicolectomy on 01/21/18. (2) Volvulus of sigmoid colon (3) Abdominal distension (4) Cardiac arrest Assessment & Plan: see cardiology note (5) Seizure disorder (6) Anemia (7) Hypertension Assessment & Plan: Hypotensived. Currently on pressors. (8) Encephalopathy (9) Dysphagia Status: not improved Assessment/Plan prognosis is guarded. Adrian Porter MD Jan 21, 2018 18:02
[2018-01-21] MEDS: Dyna-Hex 2% Top Sol 2oz TOPIC SCH (19:40)
[2018-01-21] MEDS: Micafungin 100 MG in NS 110 ML IVPB SCH (19:40)
--- NOTE | 2018-01-21 19:45 | General Progress Note ---
Assessment/Plan Status: not improved, unchanged Assessment/Plan 1. Leukocytosis, likely reactive. --> The patient with lactic acidosis. Lactic acid 7.4. --> Currently on pressors. Rule out infectious etiology. --> On broad-spectrum antibiotics and antifungals. --> Closely monitor for improvement. 2. Erythrocytosis. --> Erythrocytes 20,000. Prior laboratories have been reviewed. This is new onset for the patient back in 2016. She has never had erythrocyte count this elevated. --> Again obtain JAK2 level. 3. Septic shock, closely monitor, --> on antibiotics, broad spectrum. 4. Coagulopathy. Rule out disseminated intravascular coagulation. 5. Seizure disorder, currently on antiseizure medication. 6. Respiratory failure, status post trach and vent. 7. Dysphagia, status post gastrostomy tube. Subjective Date patient seen: Jan 21, 2018 Allergies: Coded Allergies: No Known Allergies (Unverified , 01/18/15) All Systems: reviewed and negative except above Subjective Pt remains in ICU and comatose. S/P Exploratory Laparotomy, no complications. No s/s of acute medical distress. Vitals are stable. Objective Last 24 Hour Vital Signs Date Time Temp Pulse Resp B/P (MAP) Pulse Ox O2 Delivery O2 Flow Rate FiO2 01/21/18 19:00 98 17 30 01/21/18 19:00 95 17 114/68 99 Mechanical Ventilator 30.0 01/21/18 19:00 114/68 01/21/18 18:30 103 18 112/69 98 Mechanical Ventilator 30.0 01/21/18 18:00 106 17 105/68 100 Mechanical Ventilator 30.0 01/21/18 18:00 105/68 01/21/18 17:30 107 16 101/65 100 Mechanical Ventilator 30.0 01/21/18 17:00 101/65 01/21/18 17:00 100 19 95/62 100 Mechanical Ventilator 30.0 01/21/18 16:40 99 19 30 01/21/18 16:30 98.3 97 17 105/57 100 Mechanical Ventilator 30.0 98.3 01/21/18 16:30 107/69 01/21/18 16:00 106/65 01/21/18 16:00 95 01/21/18 16:00 96 17 106/65 100 Mechanical Ventilator 30.0 7/5/18 16:00 30 7/5/18 15:30 97 17 102/66 99 Mechanical Ventilator 30.0 7/5/18 15:25 98 15 30 7/5/18 15:00 97 15 99/64 100 Mechanical Ventilator 30.0 7/5/18 15:00 30 7/5/18 15:00 108/57 7/5/18 14:30 99 15 101/58 100 Mechanical Ventilator 50.0 7/5/18 14:00 106/63 7/5/18 14:00 103 14 106/63 100 Mechanical Ventilator 50.0 7/5/18 13:30 101 15 103/67 100 Mechanical Ventilator 50.0 7/5/18 13:15 102 21 101/65 100 Mechanical Ventilator 50.0 7/5/18 13:15 101/65 7/5/18 13:04 101 16 40 7/5/18 13:00 105/68 7/5/18 13:00 101 109/62 7/5/18 12:48 209.8 100 12 100 7/5/18 12:45 102 105/68 7/5/18 12:45 127/78 7/5/18 12:30 72/22 7/5/18 12:30 98.3 104 107/66 98.3 7/5/18 12:15 109 7/5/18 12:15 50 7/5/18 12:12 107 19 50 7/5/18 12:00 98/52 7/5/18 09:00 107 24 50 7/5/18 08:30 109 23 108/59 99 Mechanical Ventilator 60 7/5/18 08:00 105 7/5/18 08:00 99.4 110 20 113/62 100 Mechanical Ventilator 60 99.4 7/5/18 08:00 50 7/5/18 07:59 112/64 7/5/18 07:30 109 20 107/63 100 Mechanical Ventilator 60 7/5/18 07:16 100 18 50 7/5/18 07:00 110 21 112/64 100 Mechanical Ventilator 60 7/5/18 06:45 107 20 115/68 100 Mechanical Ventilator 60 7/5/18 06:30 101 21 115/72 100 Mechanical Ventilator 60 7/5/18 06:15 105 20 110/64 100 Mechanical Ventilator 60 7/5/18 06:00 105 21 116/69 100 Mechanical Ventilator 60 7/5/18 06:00 110/64 7/5/18 05:45 105 20 121/85 100 Mechanical Ventilator 60 7/5/18 05:30 102 22 106/62 100 Mechanical Ventilator 60 7/5/18 05:30 99 20 60 7/5/18 05:15 104 22 111/66 100 Mechanical Ventilator 60 7/5/18 05:00 119/70 7/5/18 05:00 105 23 119/70 100 Mechanical Ventilator 60 7/5/18 04:45 112 20 116/72 99 Mechanical Ventilator 60 7/5/18 04:30 104 20 119/68 100 Mechanical Ventilator 60 7/5/18 04:15 106 20 110/66 100 Mechanical Ventilator 60 7/5/18 04:02 60 7/5/18 04:01 106 7/5/18 04:00 108/61 7/5/18 04:00 98.9 101 20 108/61 100 Mechanical Ventilator 60 98.9 7/5/18 03:45 97 20 110/69 100 Mechanical Ventilator 60 7/5/18 03:30 104 23 94/51 100 Mechanical Ventilator 60 7/5/18 03:30 103 21 60 7/5/18 03:15 101 20 111/62 100 Mechanical Ventilator 60 7/5/18 03:02 104 20 115/75 100 Mechanical Ventilator 60 7/5/18 03:00 115/75 7/5/18 02:45 105 21 110/57 100 Mechanical Ventilator 60 7/5/18 02:30 102 21 110/58 100 Mechanical Ventilator 60 7/5/18 02:15 104 20 108/61 100 Mechanical Ventilator 60 7/5/18 02:00 102 21 114/67 100 Mechanical Ventilator 60 7/5/18 02:00 114/67 7/5/18 01:45 105 22 120/72 100 Mechanical Ventilator 60 7/5/18 01:30 104 20 107/56 100 Mechanical Ventilator 60 7/5/18 01:15 104 20 108/53 100 Mechanical Ventilator 60 7/5/18 01:07 102 24 60 7/5/18 01:00 102 20 109/59 100 Mechanical Ventilator 60 7/5/18 01:00 109/59 7/5/18 00:45 106 21 106/54 100 Mechanical Ventilator 60 7/5/18 00:30 109 22 109/53 100 Mechanical Ventilator 60 7/5/18 00:15 106 21 104/58 100 Mechanical Ventilator 60 7/5/18 00:00 110/59 7/5/18 00:00 106 7/5/18 00:00 60 7/5/18 00:00 98.8 107 21 110/59 100 Mechanical Ventilator 60 98.8 7/4/18 23:45 103 21 114/66 100 Mechanical Ventilator 60 7/4/18 23:30 101 22 118/65 100 Mechanical Ventilator 60 7/4/18 23:30 104 22 60 7/4/18 23:15 109 22 116/69 100 Mechanical Ventilator 60 7/4/18 23:00 110/69 7/4/18 23:00 103 21 110/69 100 Mechanical Ventilator 60 7/4/18 22:50 102/55 7/4/18 22:49 104 102/55 7/4/18 22:45 105 21 102/55 100 Mechanical Ventilator 60 7/4/18 22:30 106 21 99/55 100 Mechanical Ventilator 60 7/4/18 22:15 108 21 113/64 100 Mechanical Ventilator 60 7/4/18 22:00 107 21 103/55 100 Mechanical Ventilator 60 7/4/18 22:00 103/55 7/4/18 21:45 108 22 100/55 100 Mechanical Ventilator 60 7/4/18 21:30 108 22 101/49 100 Mechanical Ventilator 60 7/4/18 21:30 105 21 60 7/4/18 21:15 107 21 103/58 100 Mechanical Ventilator 60 7/4/18 21:00 105/56 7/4/18 21:00 108 22 105/56 100 Mechanical Ventilator 60 7/4/18 20:45 109 22 104/58 100 Mechanical Ventilator 60 7/4/18 20:30 111 22 105/52 100 Mechanical Ventilator 60 7/4/18 20:15 108 21 101/59 100 Mechanical Ventilator 80 7/4/18 20:00 109 22 111/54 100 Mechanical Ventilator 80 7/4/18 20:00 111/54 7/4/18 20:00 80 7/4/18 20:00 106 7/4/18 19:45 106 21 106/61 100 Mechanical Ventilator 80 Intake and Output 7/4/18 7/5/18 19:00 07:00 Intake Total 3597.70 ml 3632.00 ml Output Total 1990 ml 5050 ml Balance 1607.70 ml -1418.00 ml Intake Oral 0 ml 0 ml IV Total 3597.70 ml 3632.00 ml Output Urine Total 1390 ml 4250 ml Stool Total 100 ml 200 ml Gastric Drainage Total 150 ml Drainage Total 500 ml 450 ml Laboratory Tests 01/21/18 05:46: White Blood Count 17.1H, Red Blood Count 3.44L, Hemoglobin 10.4#L, Hematocrit 30.5#L, Mean Corpuscular Volume 89, Mean Corpuscular Hemoglobin 30.3, Mean Corpuscular Hemoglobin Concent 34.1, Red Cell Distribution Width 11.6, Platelet Count 104L, Mean Platelet Volume 7.9, Neutrophils (%) (Auto) , Lymphocytes (%) ( Auto) , Monocytes (%) (Auto) , Eosinophils (%) (Auto) , Basophils (%) (Auto) , Differential Total Cells Counted 100, Neutrophils % (Manual) 83H, Lymphocytes % (Manual) 5L, Monocytes % (Manual) 3, Eosinophils % (Manual) 0, Basophils % ( Manual) 0, Band Neutrophils 9H, Platelet Estimate DecreasedL, Platelet Morphology Normal, Hypochromasia 1+, Anisocytosis 1+, Prothrombin Time 16.8H, Prothromb Time International Ratio 1.6H, Activated Partial Thromboplast Time 52H , Sodium Level 139, Potassium Level 2.5*L, Chloride Level 109H, Carbon Dioxide Level 18L, Anion Gap 12, Blood Urea Nitrogen 35H, Creatinine 2.3H, Estimat Glomerular Filtration Rate 29.1, Glucose Level 100, Lactic Acid Level 1.50, Uric Acid 6.0, Calcium Level 6.5L, Phosphorus Level 3.5, Magnesium Level 2.1, Total Bilirubin 1.2H, Direct Bilirubin 0.8H, Aspartate Amino Transf (AST/SGOT) 455H, Alanine Aminotransferase (ALT/SGPT) 713H, Alkaline Phosphatase 88, Troponin I 0.001, C-Reactive Protein, Quantitative 27.0H, Pro-B-Type Natriuretic Peptide 7214H, Total Protein 4.6L, Albumin 1.6L, Globulin 3.0, Albumin/Globulin Ratio 0.5L, Lipase 224 Height (Feet): 5 Height (Inches): 3.00 Weight (Pounds): 199 General Appearance: lethargic Neck: normal alignment Cardiovascular: normal peripheral pulses Respiratory/Chest: no respiratory distress Abdomen: tender Isaiah Noriega MD Jan 21, 2018 19:45
[2018-01-21] MEDS ORDERED: DAPTOmycin 500 MG in NS 55 ML IV SCH (20:00)
[2018-01-21] MEDS ORDERED: Dyna-Hex 2% Top Sol 2oz TOPIC SCH (20:00)
--- NOTE | 2018-01-21 20:30 | Operative Note - Dictated ---
DATE OF OPERATION: 01/21/2018 PREOPERATIVE DIAGNOSIS: Status post exploratory laparotomy with abdominal washout and open abdomen with planned re-exploration in 48 hours for abdominal peritonitis POSTOPERATIVE DIAGNOSIS: Status post exploratory laparotomy with abdominal washout and open abdomen with planned re-exploration in 48 hours for abdominal peritonitis OPERATION PERFORMED: 1. Planned re-exploration of abdomen. 2. Sigmoid colectomy for volvulus. 3. Takedown of splenic flexure. 4. Left hemicolectomy. 5. Creation of transverse colostomy. 6. Abdominal closure. ATTENDING SURGEON: Marshall Ferguson M.D. TETRYL BLENDER OPERATOR: None. ANESTHESIOLOGIST: Dr. Jessica. ANESTHESIA: General DIRECTOR OF CONSUMER AFFA[employer]. ESTIMATED BLOOD LOSS: 150 mL. IV FLUIDS: Please see anesthesia records. COMPLICATIONS: None. CONDITION: Stable. SPECIMENS: 1. Sigmoid colectomy. 2. Omentectomy. 3. Splenic flexure. 4. Descending colon. DRAINS: Two RENÉ drains placed into the abdomen. IMPLANTS: None. WOUND CLASSIFICATION: Class III. ANTIBIOTICS: The patient on scheduled IV antibiotics. INDICATIONS FOR PROCEDURE: This is a 37-year-old female with very extensive medical history, who presented few days ago in severe sepsis and sustained a cardiovascular collapse requiring ACLS and resuscitation. The patient was taken to the operating room 48 hours ago for initial exploratory laparotomy at which time, it was noted that the patient's G-tube was malpositioned in the abdomen rather than in the gastric lumen with significant amount of feeds, medications, and other contents within the abdomen causing abdominal peritonitis. Furthermore, the sigmoid colon was noted to be very redundant and dilated and likely volvulized. During that operation, G-tube was repositioned into the gastric lumen and the abdomen was washed out, and given the areas of potential ischemic bowel, a decision was made to leave the abdomen open, place an ABThera abdominal wound VAC, and resuscitate the patient for planned re-exploration in 48 hours. The patient had fortunately done significantly better with resuscitation over the next 48 hours. Her pressor requirement had significantly decreased. Her urine output improved and laboratory data significantly improved as well. Risks, benefits, and alternatives of surgery were discussed with the patient's mother who is her [id number], who consented to surgery. OPERATIVE NOTE: The patient was taken directly from the intensive care unit to the operating room, placed on the operative table in supine position. The patient has contractures of all 4 extremities, so she was made comfortable with all bony prominences well padded to accommodate. The patient had a prior G-tube, a prior Gil, and prior central venous catheter. There was an abdominal wound VAC, ABThera, on the patient's abdomen as well. Preoperative time-out was taken identifying the patient, procedure, operative site, and surgical staff. General anesthesia was induced and the patient was ventilated through her prior tracheostomy. The abdominal wound VAC was removed and the abdomen was prepped and draped in standard surgical fashion. At this time, no further leakage of gastric contents or feeds or any other were noted within the abdomen. No bleeding or other abnormalities were noted. The bowel was evaluated and initially the distended sigmoid colon remained significantly distended despite rectal tube placement and prior decompression. The sigmoid colon easily mobilized on itself through its long axis of mesentery and was noted to do so with simple manipulation in the operating room creating a volvulus. At this time, decision was made to proceed with a sigmoid colectomy given the likelihood of prior volvulus which was noted on prior imaging as well as intraoperative findings and the easily volvulized bowel noted intraoperatively. A proximal area of resection was identified and a small incision was made in mesentery. A linear 100 mm stapler was used to divide the bowel. Following this, the mesentery of the bowel was divided using a Thunderbeat energy device. As the mesentery was taken down towards the peritoneal reflection, the right and left ureters were identified and preserved. At the level of the peritoneal reflection at the distal sigmoid, a 90 mm linear stapler was then used to divide the distal aspect. The specimen was then sent off to pathology for review. A stitch was placed in the proximal aspect. Following this, the rectal stump was oversewn with a #1 Prolene suture. Following this, hemostasis was achieved and identified. The uterus as well as right and left ovaries looked otherwise normal. The mildly ischemic right ovary that was noted during the prior operation was viable without any signs of ischemia or necrosis. At this time, we began re-evaluating the bowel. The stomach looked otherwise normal with a G-tube in place. The ligament of Treitz was identified and small bowel was run from the ligament of Treitz to the ileocecal valve. The prior questionable viability of the bowel had resolved and the bowel was fully viable. No resection was necessary of the small bowel. The appendix and cecum were identified and mildly dilated, but normal on stool fill. The ascending and hepatic flexure were otherwise normal as well as the transverse colon which was somewhat dilated. The splenic flexure was noted to be high up in the left upper quadrant with a fair amount of redundancy in the transverse and splenic flexure, and the descending colon was fairly short with short mesentery. At this time, to make an ostomy from the remaining colon required mobilization of the splenic flexure. The white line of Toldt was divided and taken towards and around the splenic flexure. Once the splenic flexure was released from the mesentery and brought to the operative field, was noted to be in significant amount of redundancy from the transverse colon to the splenic flexure and the descending colon. To perform a colostomy with the amount of redundancy led for potential volvulus or obstruction and therefore, decision was made to resect a further segment of the splenic flexure and descending colon given the amount of laxiety in the mesentery of the transverse colon and do a transverse colon ostomy creation in the left lower quadrant, which was noted after evaluation to be appropriate and the best choice for the patient. The Thunderbeat was used to dissect through the remaining portions of the mesentery. The proximal site of resection was identified at the [id number] transverse colon and after a mesenteric rent was made, the bowel was divided. The remaining splenic flexure and descending colon, once divided from its mesentery, were sent to pathology for review. At this time, the abdomen was washed out. No abnormalities were noted. Of note, in the left upper quadrant and around the splenic flexure, there was a little tear in the spleen which caused 50-100 mL of blood loss and was controlled with pressure and Surgicel. At this time, no other abnormalities were found. The liver and gallbladder looked otherwise normal. Spleen was hemostatic and otherwise normal. The stomach was without complication and the remaining of the abdomen looked good. The abdomen was irrigated and inspected and all laps were removed. At this time, an area for colostomy was identified in the left lower quadrant and a circumferential skin incision was made and carried down to the fascia. The fascia was incised in a cruciate fashion and the distal portion of the transverse colon was brought through without any significant redundancy, tear in the mesentery, or tension. At this time, two 19-Austrian Jesse drains were placed through the right upper and lower abdomen, with the lower one being placed into the pelvis and upper one being placed into the left upper quadrant. At this time, the sponge and needle count were identified to be correct. The midline abdominal wound was closed using 2 looped #1 PDS sutures. Following this, the colostomy was matured using multiple 3-0 Vicryl interrupted sutures. At this time, the drains were placed to suction. A midline packing and dressing was placed as well as a colostomy bag. The patient tolerated the procedure well and was returned to the intensive care unit. Marshall Ferguson M.D. DR: ACE JOB#: [id number] CC: [facility]
[2018-01-22] VITALS (24 sets, daily range): BP systolic 103–127; BP diastolic 58–77
[2018-01-22] MEDS: D5NS 1,000 ML IV SCH ×3 (04:35→19:59)
[2018-01-22] MEDS: Hydrocortisone 100mg Inj IV SCH ×3 (05:46→21:31)
[2018-01-22 07:29] LABS: HEMATOCRIT 29.6 % (37.0-47.0); HEMOGLOBIN 9.8 G/DL (12.0-16.0); MEAN CORPUSCULAR VOLUME 90 FL (80-99); PLATELET COUNT 105 K/UL (150-450); RED BLOOD COUNT 3.28 M/UL (4.20-5.40); RED CELL DISTRIBUTION WIDTH 11.8 % (11.6-14.8); WHITE BLOOD COUNT 20.4 K/UL (4.8-10.8)
[2018-01-22] MEDS: Meropenem 1 GM in NS 55 ML IVPB SCH ×2 (07:30→19:59)
[2018-01-22 08:17] LABS: CREATINE KINASE 720 U/L (26-308)
[2018-01-22 08:27] LABS: ALANINE AMINOTRANSFERASE 520 U/L (12-78); ALBUMIN 1.7 G/DL (3.4-5.0); ALBUMIN/GLOBULIN RATIO 0.7 (1.0-2.7); ALKALINE PHOSPHATASE 106 U/L (46-116); ANION GAP 12 mmol/L (5-15); ASPARTATE AMINO TRANSFERASE 252 U/L (15-37); BILIRUBIN,TOTAL 1.3 MG/DL (0.2-1.0); BLOOD UREA NITROGEN 27 mg/dL (7-18); CALCIUM 6.8 MG/DL (8.5-10.1); CARBON DIOXIDE 18 MMOL/L (21-32); CHLORIDE 117 MMOL/L (98-107); CREATININE 1.9 MG/DL (0.55-1.30); POTASSIUM 3.1 MMOL/L (3.5-5.1); SODIUM 147 MMOL/L (136-145)
[2018-01-22] MEDS: levETIRAcetam 1,000mg/NS100ml 100 ML IVPB SCH ×2 (08:37→20:45)
[2018-01-22] MEDS: Pantoprazole Inj IV SCH ×2 (08:37→20:46)
[2018-01-22] MEDS: Heparin 5000 units/ml inj SUBQ SCH ×2 (08:38→21:00)
[2018-01-22] MEDS: NS IVPB SCH ×2 (10:06→21:31)
[2018-01-22] MEDS: PHENYTOIN IVPB SCH ×2 (10:06→21:31)
--- NOTE | 2018-01-22 10:55 | Pulmonolgy Critical Care Note ---
Critical Care - Asmt/Plan Problems: (1) Acute on chronic respiratory failure (2) Sepsis (3) Anoxic brain injury (4) Feeding by G-tube (5) Tachycardia Respiratory: monitor respiratory rate, adjust FIO2, CXR Cardiac: continue to monitor HR/BP Renal: F/U I&O, keep IV fluid Infectious Disease: check cultures Gastrointestinal: continue feedings/current rate Endocrine: check TSH Neurologic: PRN Ativan, PRN Morphine Prophylaxis: Protonix Notes Reviewed: artist manager, renal Discussed with: nurses, consultants, medical case managermanager bank - Objective Last 24 Hour Vital Signs Date Time Temp Pulse Resp B/P (MAP) Pulse Ox O2 Delivery O2 Flow Rate FiO2 01/22/18 10:40 110 18 30 01/22/18 09:11 108 19 30 01/22/18 09:00 113 18 117/70 97 Mechanical Ventilator 30 01/22/18 08:00 116 01/22/18 08:00 30 01/22/18 08:00 99.8 116 19 111/72 95 Mechanical Ventilator 30 99.8 01/22/18 07:00 117 22 127/73 96 Mechanical Ventilator 30 01/22/18 06:47 110 20 30 01/22/18 06:00 113 20 120/77 96 Mechanical Ventilator 30 01/22/18 05:12 111 21 30 01/22/18 05:00 115 25 117/72 96 Mechanical Ventilator 30 01/22/18 04:00 119 01/22/18 04:00 99.0 117 25 107/65 95 Mechanical Ventilator 30 99.0 01/22/18 04:00 30 01/22/18 03:00 117 20 116/76 100 Mechanical Ventilator 30 01/22/18 02:55 110 20 30 01/22/18 02:00 109 19 123/74 100 Mechanical Ventilator 30 01/22/18 01:00 113 19 126/71 100 Mechanical Ventilator 30 01/22/18 00:48 116 19 30 01/22/18 00:00 113 01/22/18 00:00 30 01/22/18 00:00 98.3 115 19 118/72 99 Mechanical Ventilator 30 98.3 01/21/18 23:00 116 19 121/83 100 Mechanical Ventilator 30 01/21/18 22:51 113 18 30 01/21/18 22:00 110 19 114/63 100 Mechanical Ventilator 30 7/5/18 21:30 111 19 125/50 100 Mechanical Ventilator 30 7//18 21:15 110 19 114/68 100 Mechanical Ventilator 30 7//18 21:15 110 20 30 7//18 21:00 121/72 7//18 21:00 110 19 121/72 100 Mechanical Ventilator 30 7//18 20:45 108 19 115/73 100 Mechanical Ventilator 30 7//18 20:30 103 18 108/85 100 Mechanical Ventilator 30 7//18 20:15 106 18 117/70 100 Mechanical Ventilator 30 7//18 20:00 103 18 117/67 100 Mechanical Ventilator 30 7//18 20:00 30 7//18 20:00 117/67 718 20:00 109 7/18 19:45 109 17 119/67 99 Mechanical Ventilator 30 718 19:30 98.0 103 17 117/66 99 Mechanical Ventilator 30 98.0 7//18 19:00 98 17 30 7/18 19:00 95 17 114/68 99 Mechanical Ventilator 30.0 7//18 19:00 114/68 7//18 18:30 103 18 112/69 98 Mechanical Ventilator 30.0 7//18 18:00 106 17 105/68 100 Mechanical Ventilator 30.0 7//18 18:00 105/68 7/18 17:30 107 16 101/65 100 Mechanical Ventilator 30.0 7//18 17:00 101/65 7//18 17:00 100 19 95/62 100 Mechanical Ventilator 30.0 7//18 16:40 99 19 30 7//18 16:30 98.3 97 17 105/57 100 Mechanical Ventilator 30.0 98.3 7//18 16:30 107/69 7//18 16:00 106/65 7//18 16:00 95 7/18 16:00 96 17 106/65 100 Mechanical Ventilator 30.0 7//18 16:00 30 7//18 15:30 97 17 102/66 99 Mechanical Ventilator 30.0 7/5/18 15:25 98 15 30 7//18 15:00 97 15 99/64 100 Mechanical Ventilator 30.0 7/5/18 15:00 30 7//18 15:00 108/57 01/21/18 14:30 99 15 101/58 100 Mechanical Ventilator 50.0 01/21/18 14:00 106/63 01/21/18 14:00 103 14 106/63 100 Mechanical Ventilator 50.0 01/21/18 13:30 101 15 103/67 100 Mechanical Ventilator 50.0 01/21/18 13:15 102 21 101/65 100 Mechanical Ventilator 50.0 01/21/18 13:15 101/65 01/21/18 13:04 101 16 40 01/21/18 13:00 105/68 01/21/18 13:00 101 109/62 01/21/18 12:48 209.8 100 12 100 01/21/18 12:45 102 105/68 01/21/18 12:45 127/78 01/21/18 12:30 72/22 01/21/18 12:30 98.3 104 107/66 98.3 01/21/18 12:15 109 01/21/18 12:15 50 01/21/18 12:12 107 19 50 01/21/18 12:00 98/52 Status: awake Condition: critical Neck: full ROM Lungs: clear Heart: HR/BP stable Abdomen: soft, non-tender, feeding tube Extremities: edema Decubiti: stage Micro: Microbiology Date/Time Source Procedure Growth Status 01/19/18 12:55 Blood Blood Culture - Preliminary NO GROWTH AFTER 48 HOURS Resulted 01/19/18 12:45 Blood Blood Culture - Preliminary NO GROWTH AFTER 48 HOURS Resulted 01/19/18 20:10 Abdominal Fluid Gram Stain - Final Resulted 01/19/18 20:10 Abdominal Fluid Aerobic Culture - Preliminary NO GROWTH AFTER 48 HOURS Resulted 01/19/18 20:10 Abdominal Fluid Anaerobic Culture - Preliminary NO GROWTH Resulted Accucheck: 248 Critical Care - Subjective ROS Limited/Unobtainable: Yes Condition: critical FI02: 30 Vent Support Breath Rate: 12 Vent Support Mode: AC Vent Tidal Volume: 600 Sputum Amount: Small PEEP: 5.0 PIP: 34 I&O: Intake and Output 01/21/18 01/22/18 19:00 07:00 Intake Total 2875.72 ml 1834.43 ml Output Total 2940 ml 1460 ml Balance -64.28 ml 374.43 ml Intake Oral 0 ml 0 ml IV Total 2875.72 ml 1834.43 ml Output Urine Total 2675 ml 1170 ml Stool Total 125 ml Drainage Total 140 ml 290 ml Labs: Mary braun Mirali MD Jan 22, 2018 10:55
--- NOTE | 2018-01-22 11:34 | 48 Hour Post Anesthesia Eval ---
Post Anesthesia Evaluation Procedure: Exploratory Laparotomy Date of Evaluation: Jan 22, 2018 Time of Evaluation: 08:00 Blood Pressure Systolic: 127 0: 73 Pulse Rate: 116 Respiratory Rate: 22 Temperature (Fahrenheit): 99.8 O2 Sat by Pulse Oximetry: 96 Airway: patent, other Nausea: No Vomiting: No Pain Intensity: 0 Hydration Status: adequate Mental Status/LOC: patient returned to baseline Post-Anesthesia Complications: none Follow-up care needed: N/A Jaymie Boston M.D. Jan 22, 2018 11:34
--- NOTE | 2018-01-22 11:38 | Diagnostic Imaging Report ---
Indication: Dyspnea Comparison: 01/20/2018 A single view chest radiograph was obtained. Findings: There is mild basilar atelectasis. Pneumonia not entirely excludable especially at the left lung base. Correlate clinically. Some amount of interstitial edema appears improved since the last examination. Heart size is borderline enlarged. IMPRESSION: Airspace disease versus atelectasis at the lung bases. Correlate clinically. Probable improvement in interstitial edema since the prior study.
--- NOTE | 2018-01-22 12:36 | General Progress Note ---
Assessment/Plan Status: not improved, unchanged Assessment/Plan 1. Leukocytosis, likely reactive. --> The patient with lactic acidosis. Lactic acid 7.4. --> Currently on pressors. Rule out infectious etiology. --> On broad-spectrum antibiotics and antifungals. --> Closely monitor for improvement. 2. Erythrocytosis. --> Erythrocytes 20,000. Prior laboratories have been reviewed. This is new onset for the patient back in 2016. She has never had erythrocyte count this elevated. --> Again obtain JAK2 level. 3. Septic shock, closely monitor, --> on antibiotics, broad spectrum. 4. Coagulopathy. Rule out disseminated intravascular coagulation. 5. Seizure disorder, currently on antiseizure medication. 6. Respiratory failure, status post trach and vent. 7. Dysphagia, status post gastrostomy tube. Subjective Date patient seen: Jan 22, 2018 Respiratory: Reports: other Allergies: Coded Allergies: No Known Allergies (Unverified , 01/18/15) All Systems: reviewed and negative except above Subjective Pt remains in ICU and comatose. WBC improving. Chest xr shows possible improvement. Objective Last 24 Hour Vital Signs Date Time Temp Pulse Resp B/P (MAP) Pulse Ox O2 Delivery O2 Flow Rate FiO2 01/22/18 11:34 211.6 116 22 96 01/22/18 11:00 114 116/72 (87) 01/22/18 10:40 110 18 30 01/22/18 10:00 113 120/70 (87) 01/22/18 09:11 108 19 30 01/22/18 09:00 113 18 117/70 97 Mechanical Ventilator 30 01/22/18 08:00 116 01/22/18 08:00 30 01/22/18 08:00 99.8 116 19 111/72 95 Mechanical Ventilator 30 99.8 01/22/18 08:00 Mechanical Ventilator 01/22/18 07:00 117 22 127/73 96 Mechanical Ventilator 30 01/22/18 06:47 110 20 30 01/22/18 06:00 113 20 120/77 96 Mechanical Ventilator 30 01/22/18 05:12 111 21 30 01/22/18 05:00 115 25 117/72 96 Mechanical Ventilator 30 01/22/18 04:00 119 01/22/18 04:00 99.0 117 25 107/65 95 Mechanical Ventilator 30 99.0 7/6/18 04:00 30 7/6/18 03:00 117 20 116/76 100 Mechanical Ventilator 30 7/6/18 02:55 110 20 30 7/6/18 02:00 109 19 123/74 100 Mechanical Ventilator 30 7/6/18 01:00 113 19 126/71 100 Mechanical Ventilator 30 7/6/18 00:48 116 19 30 7/6/18 00:00 113 7/6/18 00:00 30 7/6/18 00:00 98.3 115 19 118/72 99 Mechanical Ventilator 30 98.3 7/5/18 23:00 116 19 121/83 100 Mechanical Ventilator 30 7/5/18 22:51 113 18 30 7/5/18 22:00 110 19 114/63 100 Mechanical Ventilator 30 7//18 21:30 111 19 125/50 100 Mechanical Ventilator 30 7/5/18 21:15 110 19 114/68 100 Mechanical Ventilator 30 7/5/18 21:15 110 20 30 7//18 21:00 121/72 7//18 21:00 110 19 121/72 100 Mechanical Ventilator 30 7/5/18 20:45 108 19 115/73 100 Mechanical Ventilator 30 7/5/18 20:30 103 18 108/85 100 Mechanical Ventilator 30 7//18 20:15 106 18 117/70 100 Mechanical Ventilator 30 7//18 20:00 103 18 117/67 100 Mechanical Ventilator 30 7/5/18 20:00 30 7/5/18 20:00 117/67 7//18 20:00 109 7//18 19:45 109 17 119/67 99 Mechanical Ventilator 30 7/5/18 19:30 98.0 103 17 117/66 99 Mechanical Ventilator 30 98.0 7/5/18 19:00 98 17 30 7/5/18 19:00 95 17 114/68 99 Mechanical Ventilator 30.0 7/5/18 19:00 114/68 7/5/18 18:30 103 18 112/69 98 Mechanical Ventilator 30.0 7/5/18 18:00 106 17 105/68 100 Mechanical Ventilator 30.0 7/5/18 18:00 105/68 7/5/18 17:30 107 16 101/65 100 Mechanical Ventilator 30.0 7/5/18 17:00 101/65 7/5/18 17:00 100 19 95/62 100 Mechanical Ventilator 30.0 01/21/18 16:40 99 19 30 01/21/18 16:30 98.3 97 17 105/57 100 Mechanical Ventilator 30.0 98.3 01/21/18 16:30 107/69 01/21/18 16:00 106/65 01/21/18 16:00 95 01/21/18 16:00 96 17 106/65 100 Mechanical Ventilator 30.0 01/21/18 16:00 30 01/21/18 15:30 97 17 102/66 99 Mechanical Ventilator 30.0 01/21/18 15:25 98 15 30 01/21/18 15:00 97 15 99/64 100 Mechanical Ventilator 30.0 01/21/18 15:00 30 01/21/18 15:00 108/57 01/21/18 14:30 99 15 101/58 100 Mechanical Ventilator 50.0 01/21/18 14:00 106/63 01/21/18 14:00 103 14 106/63 100 Mechanical Ventilator 50.0 01/21/18 13:30 101 15 103/67 100 Mechanical Ventilator 50.0 01/21/18 13:15 102 21 101/65 100 Mechanical Ventilator 50.0 01/21/18 13:15 101/65 01/21/18 13:04 101 16 40 01/21/18 13:00 105/68 01/21/18 13:00 101 109/62 01/21/18 12:48 209.8 100 12 100 01/21/18 12:45 102 105/68 01/21/18 12:45 127/78 Intake and Output 01/21/18 01/22/18 19:00 07:00 Intake Total 2875.72 ml 1834.43 ml Output Total 2940 ml 1540 ml Balance -64.28 ml 294.43 ml Intake Oral 0 ml 0 ml IV Total 2875.72 ml 1834.43 ml Output Urine Total 2675 ml 1250 ml Stool Total 125 ml Drainage Total 140 ml 290 ml Laboratory Tests 01/22/18 05:30: White Blood Count 20.4H, Red Blood Count 3.28L, Hemoglobin 9.8L, Hematocrit 29.6L, Mean Corpuscular Volume 90, Mean Corpuscular Hemoglobin 29.8, Mean Corpuscular Hemoglobin Concent 33.1, Red Cell Distribution Width 11.8, Platelet Count 105L, Mean Platelet Volume 7.8, Neutrophils (%) (Auto) , Lymphocytes (%) ( Auto) , Monocytes (%) (Auto) , Eosinophils (%) (Auto) , Basophils (%) (Auto) , Differential Total Cells Counted 100, Neutrophils % (Manual) 83H, Lymphocytes % (Manual) 3L, Monocytes % (Manual) 12H, Eosinophils % (Manual) 0, Basophils % ( Manual) 0, Metamyelocytes % 1H, Band Neutrophils 1, Platelet Estimate DecreasedL , Platelet Morphology Normal, Hypochromasia 2+, Anisocytosis 1+, Spherocytes 1+ , Sodium Level 147H, Potassium Level 3.1L, Chloride Level 117H, Carbon Dioxide Level 18L, Anion Gap 12, Blood Urea Nitrogen 27H, Creatinine 1.9H, Estimat Glomerular Filtration Rate 36.2, Glucose Level 66L, Uric Acid 5.5, Calcium Level 6.8L, Phosphorus Level 3.0, Magnesium Level 1.9, Total Bilirubin 1.3H, Direct Bilirubin 1.0H, Aspartate Amino Transf (AST/SGOT) 252H, Alanine Aminotransferase (ALT/SGPT) 520H, Alkaline Phosphatase 106, Total Creatine Kinase 720H, C-Reactive Protein, Quantitative 25.8H, Pro-B-Type Natriuretic Peptide 2097H, Total Protein 4.2L, Albumin 1.7L, Globulin 2.5, Albumin/Globulin Ratio 0.7L, Random Vancomycin Level 15.7 Height (Feet): 5 Height (Inches): 3.00 Weight (Pounds): 196 General Appearance: no apparent distress, lethargic EENT: PERRL/EOMI Neck: normal alignment Cardiovascular: tachycardia Respiratory/Chest: no respiratory distress, rhonchi - bilaterally Abdomen: no mass Isaiah Noriega MD Jan 22, 2018 12:36
[2018-01-22] MEDS: Vancomycin 1gm/D5W 275ml IVPB SCH ×2 (12:38)
--- NOTE | 2018-01-22 13:03 | Nephrology Progress Note ---
Assessment/Plan Problem List: (1) Acute on chronic respiratory failure Assessment: ATN (2) Sepsis Assessment: shock (3) Seizure disorder Assessment Septic shock now off pressors, hence Oliguria and acute renal failure s/p 2 OR visits , for peritonitis Cr lower Others: (1) Acute on chronic respiratory failure (2) Sepsis (3) Anoxic brain injury (4) Feeding by G-tube (5) Tachycardia Plan K supplement Hydrate albumin bollous hydrocortisone Antibiotics monitor renal parameters Per ID Pulm Surg Subjective ROS Limited/Unobtainable: Yes Objective Objective Last 24 Hour Vital Signs Date Time Temp Pulse Resp B/P (MAP) Pulse Ox O2 Delivery O2 Flow Rate FiO2 01/22/18 12:46 112 16 30 01/22/18 11:34 211.6 116 22 96 01/22/18 11:00 114 116/72 (87) 01/22/18 10:40 110 18 30 01/22/18 10:00 113 120/70 (87) 01/22/18 09:11 108 19 30 01/22/18 09:00 113 18 117/70 97 Mechanical Ventilator 30 01/22/18 08:00 116 01/22/18 08:00 30 01/22/18 08:00 99.8 116 19 111/72 95 Mechanical Ventilator 30 99.8 01/22/18 08:00 Mechanical Ventilator 01/22/18 07:00 117 22 127/73 96 Mechanical Ventilator 30 01/22/18 06:47 110 20 30 01/22/18 06:00 113 20 120/77 96 Mechanical Ventilator 30 01/22/18 05:12 111 21 30 01/22/18 05:00 115 25 117/72 96 Mechanical Ventilator 30 01/22/18 04:00 119 01/22/18 04:00 99.0 117 25 107/65 95 Mechanical Ventilator 30 99.0 01/22/18 04:00 30 01/22/18 03:00 117 20 116/76 100 Mechanical Ventilator 30 01/22/18 02:55 110 20 30 01/22/18 02:00 109 19 123/74 100 Mechanical Ventilator 30 01/22/18 01:00 113 19 126/71 100 Mechanical Ventilator 30 01/22/18 00:48 116 19 30 01/22/18 00:00 113 01/22/18 00:00 30 01/22/18 00:00 98.3 115 19 118/72 99 Mechanical Ventilator 30 98.3 7//18 23:00 116 19 121/83 100 Mechanical Ventilator 30 7//18 22:51 113 18 30 7//18 22:00 110 19 114/63 100 Mechanical Ventilator 30 7//18 21:30 111 19 125/50 100 Mechanical Ventilator 30 7//18 21:15 110 19 114/68 100 Mechanical Ventilator 30 7//18 21:15 110 20 30 7//18 21:00 121/72 7//18 21:00 110 19 121/72 100 Mechanical Ventilator 30 7//18 20:45 108 19 115/73 100 Mechanical Ventilator 30 7//18 20:30 103 18 108/85 100 Mechanical Ventilator 30 7//18 20:15 106 18 117/70 100 Mechanical Ventilator 30 7//18 20:00 103 18 117/67 100 Mechanical Ventilator 30 7//18 20:00 30 7//18 20:00 117/67 718 20:00 109 7//18 19:45 109 17 119/67 99 Mechanical Ventilator 30 7/18 19:30 98.0 103 17 117/66 99 Mechanical Ventilator 30 98.0 7//18 19:00 98 17 30 7//18 19:00 95 17 114/68 99 Mechanical Ventilator 30.0 7//18 19:00 114/68 7//18 18:30 103 18 112/69 98 Mechanical Ventilator 30.0 7//18 18:00 106 17 105/68 100 Mechanical Ventilator 30.0 7//18 18:00 105/68 7//18 17:30 107 16 101/65 100 Mechanical Ventilator 30.0 7//18 17:00 101/65 7//18 17:00 100 19 95/62 100 Mechanical Ventilator 30.0 7//18 16:40 99 19 30 7//18 16:30 98.3 97 17 105/57 100 Mechanical Ventilator 30.0 98.3 7//18 16:30 107/69 7//18 16:00 106/65 7//18 16:00 95 7//18 16:00 96 17 106/65 100 Mechanical Ventilator 30.0 7/18 16:00 30 7//18 15:30 97 17 102/66 99 Mechanical Ventilator 30.0 01/21/18 15:25 98 15 30 01/21/18 15:00 97 15 99/64 100 Mechanical Ventilator 30.0 01/21/18 15:00 30 01/21/18 15:00 108/57 01/21/18 14:30 99 15 101/58 100 Mechanical Ventilator 50.0 01/21/18 14:00 106/63 01/21/18 14:00 103 14 106/63 100 Mechanical Ventilator 50.0 01/21/18 13:30 101 15 103/67 100 Mechanical Ventilator 50.0 01/21/18 13:15 102 21 101/65 100 Mechanical Ventilator 50.0 01/21/18 13:15 101/65 01/21/18 13:04 101 16 40 Intake and Output 01/21/18 01/22/18 19:00 07:00 Intake Total 2875.72 ml 1834.43 ml Output Total 2940 ml 1540 ml Balance -64.28 ml 294.43 ml Intake Oral 0 ml 0 ml IV Total 2875.72 ml 1834.43 ml Output Urine Total 2675 ml 1250 ml Stool Total 125 ml Drainage Total 140 ml 290 ml Laboratory Tests 01/22/18 05:30: White Blood Count 20.4H, Red Blood Count 3.28L, Hemoglobin 9.8L, Hematocrit 29.6L, Mean Corpuscular Volume 90, Mean Corpuscular Hemoglobin 29.8, Mean Corpuscular Hemoglobin Concent 33.1, Red Cell Distribution Width 11.8, Platelet Count 105L, Mean Platelet Volume 7.8, Neutrophils (%) (Auto) , Lymphocytes (%) ( Auto) , Monocytes (%) (Auto) , Eosinophils (%) (Auto) , Basophils (%) (Auto) , Differential Total Cells Counted 100, Neutrophils % (Manual) 83H, Lymphocytes % (Manual) 3L, Monocytes % (Manual) 12H, Eosinophils % (Manual) 0, Basophils % ( Manual) 0, Metamyelocytes % 1H, Band Neutrophils 1, Platelet Estimate DecreasedL , Platelet Morphology Normal, Hypochromasia 2+, Anisocytosis 1+, Spherocytes 1+ , Sodium Level 147H, Potassium Level 3.1L, Chloride Level 117H, Carbon Dioxide Level 18L, Anion Gap 12, Blood Urea Nitrogen 27H, Creatinine 1.9H, Estimat Glomerular Filtration Rate 36.2, Glucose Level 66L, Uric Acid 5.5, Calcium Level 6.8L, Phosphorus Level 3.0, Magnesium Level 1.9, Total Bilirubin 1.3H, Direct Bilirubin 1.0H, Aspartate Amino Transf (AST/SGOT) 252H, Alanine Aminotransferase (ALT/SGPT) 520H, Alkaline Phosphatase 106, Total Creatine Kinase 720H, C-Reactive Protein, Quantitative 25.8H, Pro-B-Type Natriuretic Peptide 2097H, Total Protein 4.2L, Albumin 1.7L, Globulin 2.5, Albumin/Globulin Ratio 0.7L, Random Vancomycin Level 15.7 Height (Feet): 5 Height (Inches): 3.00 Weight (Pounds): 196 General Appearance: no apparent distress, lethargic Respiratory/Chest: decreased breath sounds Abdomen: distended Objective no change LORRIE PERAZA Jan 22, 2018 13:03
--- NOTE | 2018-01-22 14:27 | General Surgery Progress Note ---
General Surgery-Progress Note Subjective Procedure Performed planned re-exploration of abdomen, sigmoid colectomy, takedown of splenic flexure, left hemicolectomy, creation of transverse colostomy, abdominal closure Additional Comments doing well given condition. drains with serous output. ostomy viable. abd distended but stable. Objective Last 24 Hour Vital Signs Date Time Temp Pulse Resp B/P (MAP) Pulse Ox O2 Delivery O2 Flow Rate FiO2 01/22/18 13:00 110 121/73 (89) 01/22/18 12:46 112 16 30 01/22/18 12:00 30 01/22/18 12:00 110 115/66 (82) 01/22/18 12:00 110 01/22/18 12:00 Mechanical Ventilator 01/22/18 11:34 211.6 116 22 96 01/22/18 11:00 114 116/72 (87) 01/22/18 10:40 110 18 30 01/22/18 10:00 113 120/70 (87) 01/22/18 09:11 108 19 30 01/22/18 09:00 113 18 117/70 97 Mechanical Ventilator 30 01/22/18 08:00 116 01/22/18 08:00 30 01/22/18 08:00 99.8 116 19 111/72 95 Mechanical Ventilator 30 99.8 01/22/18 08:00 Mechanical Ventilator 01/22/18 07:00 117 22 127/73 96 Mechanical Ventilator 30 01/22/18 06:47 110 20 30 01/22/18 06:00 113 20 120/77 96 Mechanical Ventilator 30 01/22/18 05:12 111 21 30 01/22/18 05:00 115 25 117/72 96 Mechanical Ventilator 30 01/22/18 04:00 119 01/22/18 04:00 99.0 117 25 107/65 95 Mechanical Ventilator 30 99.0 01/22/18 04:00 30 01/22/18 03:00 117 20 116/76 100 Mechanical Ventilator 30 01/22/18 02:55 110 20 30 01/22/18 02:00 109 19 123/74 100 Mechanical Ventilator 30 01/22/18 01:00 113 19 126/71 100 Mechanical Ventilator 30 01/22/18 00:48 116 19 30 01/22/18 00:00 113 01/22/18 00:00 30 01/22/18 00:00 98.3 115 19 118/72 99 Mechanical Ventilator 30 98.3 7//18 23:00 116 19 121/83 100 Mechanical Ventilator 30 7//18 22:51 113 18 30 7//18 22:00 110 19 114/63 100 Mechanical Ventilator 30 7//18 21:30 111 19 125/50 100 Mechanical Ventilator 30 7//18 21:15 110 19 114/68 100 Mechanical Ventilator 30 7//18 21:15 110 20 30 7//18 21:00 121/72 7//18 21:00 110 19 121/72 100 Mechanical Ventilator 30 7//18 20:45 108 19 115/73 100 Mechanical Ventilator 30 7//18 20:30 103 18 108/85 100 Mechanical Ventilator 30 7/18 20:15 106 18 117/70 100 Mechanical Ventilator 30 7//18 20:00 103 18 117/67 100 Mechanical Ventilator 30 7//18 20:00 30 718 20:00 117/67 718 20:00 109 718 19:45 109 17 119/67 99 Mechanical Ventilator 30 718 19:30 98.0 103 17 117/66 99 Mechanical Ventilator 30 98.0 7//18 19:00 98 17 30 7/18 19:00 95 17 114/68 99 Mechanical Ventilator 30.0 7//18 19:00 114/68 7//18 18:30 103 18 112/69 98 Mechanical Ventilator 30.0 7//18 18:00 106 17 105/68 100 Mechanical Ventilator 30.0 7//18 18:00 105/68 7//18 17:30 107 16 101/65 100 Mechanical Ventilator 30.0 7//18 17:00 101/65 7//18 17:00 100 19 95/62 100 Mechanical Ventilator 30.0 7//18 16:40 99 19 30 7/18 16:30 98.3 97 17 105/57 100 Mechanical Ventilator 30.0 98.3 7//18 16:30 107/69 7//18 16:00 106/65 7//18 16:00 95 7/18 16:00 96 17 106/65 100 Mechanical Ventilator 30.0 7//18 16:00 30 01/21/18 15:30 97 17 102/66 99 Mechanical Ventilator 30.0 01/21/18 15:25 98 15 30 01/21/18 15:00 97 15 99/64 100 Mechanical Ventilator 30.0 01/21/18 15:00 30 01/21/18 15:00 108/57 01/21/18 14:30 99 15 101/58 100 Mechanical Ventilator 50.0 I&O Intake and Output 01/21/18 01/22/18 19:00 07:00 Intake Total 2875.72 ml 1834.43 ml Output Total 2940 ml 1540 ml Balance -64.28 ml 294.43 ml Intake Oral 0 ml 0 ml IV Total 2875.72 ml 1834.43 ml Output Urine Total 2675 ml 1250 ml Stool Total 125 ml Drainage Total 140 ml 290 ml Dressing: saturated Wound: clean Drains: alec Cardiovascular: RSR Respiratory: decreased breath sounds Abdomen: soft, distended, absent bowel sounds Extremities: no cyanosis Laboratory Tests Test 01/22/18 05:30 01/22/18 05:35 White Blood Count 20.4 K/UL (4.8-10.8) H Red Blood Count 3.28 M/UL (4.20-5.40) L Hemoglobin 9.8 G/DL (12.0-16.0) L Hematocrit 29.6 % (37.0-47.0) L Mean Corpuscular Volume 90 FL (80-99) Mean Corpuscular Hemoglobin 29.8 PG (27.0-31.0) Mean Corpuscular Hemoglobin Concent 33.1 G/DL (32.0-36.0) Red Cell Distribution Width 11.8 % (11.6-14.8) Platelet Count 105 K/UL (150-450) L Mean Platelet Volume 7.8 FL (6.5-10.1) Neutrophils (%) (Auto) % (45.0-75.0) Lymphocytes (%) (Auto) % (20.0-45.0) Monocytes (%) (Auto) % (1.0-10.0) Eosinophils (%) (Auto) % (0.0-3.0) Basophils (%) (Auto) % (0.0-2.0) Differential Total Cells Counted 100 Neutrophils % (Manual) 83 % (45-75) H Lymphocytes % (Manual) 3 % (20-45) L Monocytes % (Manual) 12 % (1-10) H Eosinophils % (Manual) 0 % (0-3) Basophils % (Manual) 0 % (0-2) Metamyelocytes % 1 % (0-0) H Band Neutrophils 1 % (0-8) Platelet Estimate Decreased L Platelet Morphology Normal Hypochromasia 2+ Anisocytosis 1+ Spherocytes 1+ Sodium Level 147 MMOL/L (136-145) H Potassium Level 3.1 MMOL/L (3.5-5.1) L Chloride Level 117 MMOL/L (98-107) H Carbon Dioxide Level 18 MMOL/L (21-32) L Anion Gap 12 mmol/L (5-15) Blood Urea Nitrogen 27 mg/dL (7-18) H Creatinine 1.9 MG/DL (0.55-1.30) H Estimat Glomerular Filtration Rate 36.2 mL/min (>60) Glucose Level 66 MG/DL (74-106) L Uric Acid 5.5 MG/DL (2.6-7.2) Calcium Level 6.8 MG/DL (8.5-10.1) L Phosphorus Level 3.0 MG/DL (2.5-4.9) Magnesium Level 1.9 MG/DL (1.8-2.4) Total Bilirubin 1.3 MG/DL (0.2-1.0) H Direct Bilirubin 1.0 MG/DL (0.0-0.3) H Aspartate Amino Transf (AST/SGOT) 252 U/L (15-37) H Alanine Aminotransferase (ALT/SGPT) 520 U/L (12-78) H Alkaline Phosphatase 106 U/L (46-116) Total Creatine Kinase 720 U/L (26-308) H C-Reactive Protein, Quantitative 25.8 mg/dL (0.00-0.90) H 20.4 mg/dL (0.00-0.90) H Pro-B-Type Natriuretic Peptide 2097 pg/mL (0-125) H Total Protein 4.2 G/DL (6.4-8.2) L Albumin 1.7 G/DL (3.4-5.0) L Globulin 2.5 g/dL Albumin/Globulin Ratio 0.7 (1.0-2.7) L Random Vancomycin Level 15.7 ug/mL Assessment Post-op Diagnosis s/p exploratory laparotomy, abdominal washout, open abdomen Plan Problems: (1) Severe sepsis Assessment & Plan: 37F severe sepsis. etiology unknown. labs as above. radiology as above. arrested on arrival in ED and currently in ICU. CXR and KUB reviewed. question of possible free air. on KUB very stool filled bowel with dilated bowels On exam with incarcerated umbilical hernia, cannot determine if chronic, acute, bowel or fat. was able to reduce at bedside fortunately. Need CT scan but unfortunately too unstable for examination Warrants diagnostic laparoscopy vs exploration but given recent events, current condition, and history would not be safe and needs resuscitation first. would unlikely tolerate surgery. needs to respond to resuscitation first. likely very dehydrated given labs. s/p ex lap with open abdomen s/p re-ex lap 48hrs after for washout, bowel resection, ostomy, abd closure recovering labs reviewed HD stability improving drains with serous output ostomy viable -NPO -IV fluids -IV Abx -trend labs -g tube to suction low intermittent -rock -drain care and management -packing and dressings to midline wound BID -ostomy care/bag will follow closely. unfortunately very poor prognosis. Marshall Ferguson Jan 22, 2018 14:27
[2018-01-22] MEDS: Phenylephrine 50 MG in D5W 245 ML IV SCH (15:00)
--- NOTE | 2018-01-22 15:30 | Diagnostic Imaging Report ---
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 The right upper extremity was prepped with alcohol. All elements of maximal sterile barrier technique were followed including usage of a cap, mask, sterile gown, sterile gloves, hand hygiene and a large sterile sheet. Sonographic evaluation of the upper extremity was performed demonstrating a patent and compressible basilic vein. Access was obtained under real-time ultrasound guidance (with utilization of sterile gel and sterile probe cover) and digital image was saved and archived. An .018 wire was introduced. Needle exchanged for a 5 [place] peel-away sheath. Measurements were obtained. A 5 [place] dual-lumen Power PICC line catheter was cut to 30 cm and introduced over the wire. Peel-away sheath and wire were removed.Catheter was secured to the skin using 2-0 Prolene suture. Both ports aspirate and flush easily. Post procedure chest x-ray demonstrates good position of the PICC line catheter within the SVC. Impression: Successful placement of an upper extremity PICC line catheter
--- NOTE | 2018-01-22 18:09 | Cardiology Progress Note ---
Assessment/Plan Status: stable, progressing Assessment/Plan (1) Acute on chronic respiratory failure (2) Sepsis (3) Anoxic brain injury (4) Feeding by G-tube (5) Tachycardia (6) S/P exploratory laparotomy, left hemicolectomy Continue respiratory support G tube to suction, feels held Wound care per surgery Replete electrolytes IV stress dose steroids Albumin prn hypotension Wean pressors Hold beta blockers Echo reviewed Continue broad abx Subjective Cardiovascular: Reports: no symptoms Respiratory: Reports: no symptoms Gastrointestinal/Abdominal: Reports: no symptoms Genitourinary: Reports: no symptoms Subjective Patient improving, WBC coming down, pressor requirements less New ostomy pink, drain intact Vitals stable PICC line placed Objective Last 24 Hour Vital Signs Date Time Temp Pulse Resp B/P (MAP) Pulse Ox O2 Delivery O2 Flow Rate FiO2 01/22/18 17:04 114 18 30 01/22/18 17:00 94 17 119/73 (88) 99 01/22/18 16:00 98.1 119 107/60 (76) 98.1 01/22/18 16:00 30 01/22/18 16:00 Mechanical Ventilator 01/22/18 16:00 109 01/22/18 15:00 105 119/73 (88) 01/22/18 15:00 109 107/60 01/22/18 14:56 112 17 30 01/22/18 14:00 112 125/75 (92) 01/22/18 13:00 110 121/73 (89) 01/22/18 12:46 112 16 30 01/22/18 12:00 30 01/22/18 12:00 110 115/66 (82) 01/22/18 12:00 110 01/22/18 12:00 Mechanical Ventilator 01/22/18 11:34 211.6 116 22 96 01/22/18 11:00 114 116/72 (87) 01/22/18 10:40 110 18 30 01/22/18 10:00 113 120/70 (87) 01/22/18 09:11 108 19 30 01/22/18 09:00 113 18 117/70 97 Mechanical Ventilator 30 01/22/18 08:00 116 01/22/18 08:00 30 01/22/18 08:00 99.8 116 19 111/72 95 Mechanical Ventilator 30 99.8 7/6/18 08:00 Mechanical Ventilator 7/6/18 07:00 117 22 127/73 96 Mechanical Ventilator 30 7/6/18 06:47 110 20 30 7/6/18 06:00 113 20 120/77 96 Mechanical Ventilator 30 7/6/18 05:12 111 21 30 7/6/18 05:00 115 25 117/72 96 Mechanical Ventilator 30 7/6/18 04:00 119 7/6/18 04:00 99.0 117 25 107/65 95 Mechanical Ventilator 30 99.0 7/6/18 04:00 30 7/6/18 03:00 117 20 116/76 100 Mechanical Ventilator 30 7/6/18 02:55 110 20 30 7/6/18 02:00 109 19 123/74 100 Mechanical Ventilator 30 7//18 01:00 113 19 126/71 100 Mechanical Ventilator 30 7/6/18 00:48 116 19 30 7/6/18 00:00 113 7/6/18 00:00 30 7/6/18 00:00 98.3 115 19 118/72 99 Mechanical Ventilator 30 98.3 7//18 23:00 116 19 121/83 100 Mechanical Ventilator 30 7//18 22:51 113 18 30 7/5/18 22:00 110 19 114/63 100 Mechanical Ventilator 30 7//18 21:30 111 19 125/50 100 Mechanical Ventilator 30 7//18 21:15 110 19 114/68 100 Mechanical Ventilator 30 7/5/18 21:15 110 20 30 7/5/18 21:00 121/72 7//18 21:00 110 19 121/72 100 Mechanical Ventilator 30 7/5/18 20:45 108 19 115/73 100 Mechanical Ventilator 30 7/5/18 20:30 103 18 108/85 100 Mechanical Ventilator 30 7/5/18 20:15 106 18 117/70 100 Mechanical Ventilator 30 7/5/18 20:00 103 18 117/67 100 Mechanical Ventilator 30 7/5/18 20:00 30 7/5/18 20:00 117/67 7/5/18 20:00 109 7/5/18 19:45 109 17 119/67 99 Mechanical Ventilator 30 7/5/18 19:30 98.0 103 17 117/66 99 Mechanical Ventilator 30 98.0 7/5/18 19:00 98 17 30 7/5/18 19:00 95 17 114/68 99 Mechanical Ventilator 30.0 01/21/18 19:00 114/68 01/21/18 18:30 103 18 112/69 98 Mechanical Ventilator 30.0 General Appearance: no apparent distress, on vent EENT: PERRL/EOMI Neck: non-tender Rhythm: ST Cardiovascular: normal peripheral pulses, tachycardia Respiratory/Chest: chest wall non-tender Abdomen: hypoactive bowel sounds Extremities: normal range of motion Neurologic: unresponsiveness Intake and Output 01/21/18 01/22/18 19:00 07:00 Intake Total 2875.72 ml 1834.43 ml Output Total 2940 ml 1540 ml Balance -64.28 ml 294.43 ml Intake Oral 0 ml 0 ml IV Total 2875.72 ml 1834.43 ml Output Urine Total 2675 ml 1250 ml Stool Total 125 ml Drainage Total 140 ml 290 ml Laboratory Tests Test 01/22/18 05:30 01/22/18 05:35 White Blood Count 20.4 K/UL (4.8-10.8) H Red Blood Count 3.28 M/UL (4.20-5.40) L Hemoglobin 9.8 G/DL (12.0-16.0) L Hematocrit 29.6 % (37.0-47.0) L Mean Corpuscular Volume 90 FL (80-99) Mean Corpuscular Hemoglobin 29.8 PG (27.0-31.0) Mean Corpuscular Hemoglobin Concent 33.1 G/DL (32.0-36.0) Red Cell Distribution Width 11.8 % (11.6-14.8) Platelet Count 105 K/UL (150-450) L Mean Platelet Volume 7.8 FL (6.5-10.1) Neutrophils (%) (Auto) % (45.0-75.0) Lymphocytes (%) (Auto) % (20.0-45.0) Monocytes (%) (Auto) % (1.0-10.0) Eosinophils (%) (Auto) % (0.0-3.0) Basophils (%) (Auto) % (0.0-2.0) Differential Total Cells Counted 100 Neutrophils % (Manual) 83 % (45-75) H Lymphocytes % (Manual) 3 % (20-45) L Monocytes % (Manual) 12 % (1-10) H Eosinophils % (Manual) 0 % (0-3) Basophils % (Manual) 0 % (0-2) Metamyelocytes % 1 % (0-0) H Band Neutrophils 1 % (0-8) Platelet Estimate Decreased L Platelet Morphology Normal Hypochromasia 2+ Anisocytosis 1+ Spherocytes 1+ Sodium Level 147 MMOL/L (136-145) H Potassium Level 3.1 MMOL/L (3.5-5.1) L Chloride Level 117 MMOL/L (98-107) H Carbon Dioxide Level 18 MMOL/L (21-32) L Anion Gap 12 mmol/L (5-15) Blood Urea Nitrogen 27 mg/dL (7-18) H Creatinine 1.9 MG/DL (0.55-1.30) H Estimat Glomerular Filtration Rate 36.2 mL/min (>60) Glucose Level 66 MG/DL (74-106) L Uric Acid 5.5 MG/DL (2.6-7.2) Calcium Level 6.8 MG/DL (8.5-10.1) L Phosphorus Level 3.0 MG/DL (2.5-4.9) Magnesium Level 1.9 MG/DL (1.8-2.4) Total Bilirubin 1.3 MG/DL (0.2-1.0) H Direct Bilirubin 1.0 MG/DL (0.0-0.3) H Aspartate Amino Transf (AST/SGOT) 252 U/L (15-37) H Alanine Aminotransferase (ALT/SGPT) 520 U/L (12-78) H Alkaline Phosphatase 106 U/L (46-116) Total Creatine Kinase 720 U/L (26-308) H C-Reactive Protein, Quantitative 25.8 mg/dL (0.00-0.90) H 20.4 mg/dL (0.00-0.90) H Pro-B-Type Natriuretic Peptide 2097 pg/mL (0-125) H Total Protein 4.2 G/DL (6.4-8.2) L Albumin 1.7 G/DL (3.4-5.0) L Globulin 2.5 g/dL Albumin/Globulin Ratio 0.7 (1.0-2.7) L Random Vancomycin Level 15.7 ug/mL Microbiology Date/Time Source Procedure Growth Status 01/19/18 20:10 Abdominal Fluid Gram Stain - Final Resulted 01/19/18 20:10 Abdominal Fluid Aerobic Culture - Preliminary NO GROWTH AFTER 48 HOURS Resulted 01/19/18 20:10 Abdominal Fluid Anaerobic Culture - Preliminary NO GROWTH Resulted Rob Cote M.D. Jan 22, 2018 18:09
--- NOTE | 2018-01-22 18:49 | Internal Med Progress Note ---
Subjective Date of Service: Jan 22, 2018 Physician Name Adrian Porter Attending Physician Guillermo Morel MD Current Medications Medications (Trade) Dose Ordered Sig/Kel Route PRN Reason Start Time Stop Time Status Last Admin Dose Admin Acetaminophen (Tylenol) 650 mg Q4H PRN ORAL FEVER 01/18/18 13:00 02/17/18 08:59 Albuterol/ Ipratropium (Albuterol/ Ipratropium) 3 ml Q4H PRN HHN Shortness of Breath 01/18/18 15:15 01/23/18 07:14 Chlorhexidine Gluconate (Neela-Hex 2%) 1 applic DAILY@2000 TOPIC 01/20/18 20:00 02/19/18 19:59 01/21/18 19:40 Dextrose (Dextrose 50%) 25 ml STAT PRN IV Hypoglycemia 01/19/18 07:15 02/17/18 07:14 Dextrose (Dextrose 50%) 50 ml STAT PRN IV Hypoglycemia 01/19/18 07:30 02/17/18 07:29 Dextrose/Sodium Chloride 1,000 ml @ 125 mls/hr Q8H IV 01/21/18 12:30 02/20/18 12:29 01/22/18 12:38 Heparin Sodium (Porcine) (Heparin 5000 units/ml) 5,000 units EVERY 12 HOURS SUBQ 01/18/18 21:00 02/17/18 08:59 01/20/18 21:14 Heparin Sodium/ Sodium Chloride (Heparin 2000 units/Ns 1000ml premix) 2,000 unit ONCE PRN INJ FOR PICC PLACEMENT 01/21/18 17:30 01/22/18 23:59 Hydrocortisone (Solu-CORTEF) 50 mg EVERY 8 HOURS IV 01/22/18 14:00 02/19/18 21:59 01/22/18 15:01 Levetiracetam 100 ml @ 400 mls/hr Q12HR IVPB 01/18/18 22:30 02/17/18 22:29 01/22/18 08:37 Lidocaine HCl (Xylocaine 1% 30ml) 30 ml ONCE PRN INJ PICC PLACEMENT 01/21/18 17:30 01/22/18 23:59 Lorazepam (Ativan 2mg/ml 1ml) 2 mg Q2H PRN IV For Anxiety 01/18/18 13:15 01/25/18 07:14 Meropenem 1 gm/ Sodium Chloride 55 ml @ 110 mls/hr Q12H IVPB 01/18/18 19:30 01/27/18 19:29 01/22/18 07:30 Micafungin Sodium 100 mg/Sodium Chloride 110 ml @ 110 mls/hr Q24H IVPB 01/18/18 20:30 01/25/18 20:29 01/21/18 19:40 Morphine Sulfate (Morphine Sulfate) 4 mg Q4H PRN IVP Severe Pain (Pain Scale 7-10) 01/18/18 15:15 01/25/18 07:14 Norepinephrine Bitartrate 8 mg/ Dextrose 508 ml @ 0 mls/hr Q24H IV 01/18/18 17:00 02/17/18 16:59 01/21/18 07:59 Ondansetron HCl (Zofran) 4 mg Q6H PRN IVP Nausea & Vomiting 01/18/18 13:15 02/17/18 07:14 01/22/18 01:17 Pantoprazole (Protonix) 40 mg Q12HR IV 01/19/18 21:00 02/17/18 08:59 01/22/18 08:37 Phenylephrine HCl 50 mg/Dextrose 250 ml @ 0 mls/hr Q24H IV 01/18/18 15:00 02/17/18 14:59 01/20/18 22:49 Phenytoin 150 mg/ Sodium Chloride 58 ml @ 114 mls/hr EVERY 12 HOURS IVPB 01/18/18 22:30 02/17/18 22:29 01/22/18 10:06 Polyethylene Glycol (Miralax) 17 gm DAILYPRN PRN ORAL Constipation 01/19/18 07:15 02/17/18 07:14 Vancomycin HCl (Vanco rx to dose) 1 ea DAILY PRN MISC Per rx protocol 01/21/18 11:30 02/20/18 11:29 Vancomycin HCl 1 gm/Dextrose 275 ml @ 183.708 mls/hr Q24H IVPB 01/22/18 13:00 01/27/18 12:59 01/22/18 12:38 Allergies: Coded Allergies: No Known Allergies (Unverified , 01/18/15) ROS Limited/Unobtainable: Yes Subjective 37 YO F admitted with abdominal distention. S/P cardiac arrest. S/P exploratory laparotomy 01/19/18. S/P sigmoidectomy and hemicolectomy 01/21/18. Cover for [facility] Med-Dr Morel. Intubated and sedated. ICU Objective Last Vital Signs Date Time Temp Pulse Resp B/P (MAP) Pulse Ox O2 Delivery O2 Flow Rate FiO2 01/22/18 18:00 110 18 113/60 (77) 99 01/22/18 17:04 30 01/22/18 16:00 98.1 98.1 01/22/18 16:00 Mechanical Ventilator 01/21/18 19:00 30.0 Laboratory Tests Test 01/22/18 05:30 01/22/18 05:35 White Blood Count 20.4 K/UL (4.8-10.8) H Red Blood Count 3.28 M/UL (4.20-5.40) L Hemoglobin 9.8 G/DL (12.0-16.0) L Hematocrit 29.6 % (37.0-47.0) L Mean Corpuscular Volume 90 FL (80-99) Mean Corpuscular Hemoglobin 29.8 PG (27.0-31.0) Mean Corpuscular Hemoglobin Concent 33.1 G/DL (32.0-36.0) Red Cell Distribution Width 11.8 % (11.6-14.8) Platelet Count 105 K/UL (150-450) L Mean Platelet Volume 7.8 FL (6.5-10.1) Neutrophils (%) (Auto) % (45.0-75.0) Lymphocytes (%) (Auto) % (20.0-45.0) Monocytes (%) (Auto) % (1.0-10.0) Eosinophils (%) (Auto) % (0.0-3.0) Basophils (%) (Auto) % (0.0-2.0) Differential Total Cells Counted 100 Neutrophils % (Manual) 83 % (45-75) H Lymphocytes % (Manual) 3 % (20-45) L Monocytes % (Manual) 12 % (1-10) H Eosinophils % (Manual) 0 % (0-3) Basophils % (Manual) 0 % (0-2) Metamyelocytes % 1 % (0-0) H Band Neutrophils 1 % (0-8) Platelet Estimate Decreased L Platelet Morphology Normal Hypochromasia 2+ Anisocytosis 1+ Spherocytes 1+ Sodium Level 147 MMOL/L (136-145) H Potassium Level 3.1 MMOL/L (3.5-5.1) L Chloride Level 117 MMOL/L (98-107) H Carbon Dioxide Level 18 MMOL/L (21-32) L Anion Gap 12 mmol/L (5-15) Blood Urea Nitrogen 27 mg/dL (7-18) H Creatinine 1.9 MG/DL (0.55-1.30) H Estimat Glomerular Filtration Rate 36.2 mL/min (>60) Glucose Level 66 MG/DL (74-106) L Uric Acid 5.5 MG/DL (2.6-7.2) Calcium Level 6.8 MG/DL (8.5-10.1) L Phosphorus Level 3.0 MG/DL (2.5-4.9) Magnesium Level 1.9 MG/DL (1.8-2.4) Total Bilirubin 1.3 MG/DL (0.2-1.0) H Direct Bilirubin 1.0 MG/DL (0.0-0.3) H Aspartate Amino Transf (AST/SGOT) 252 U/L (15-37) H Alanine Aminotransferase (ALT/SGPT) 520 U/L (12-78) H Alkaline Phosphatase 106 U/L (46-116) Total Creatine Kinase 720 U/L (26-308) H C-Reactive Protein, Quantitative 25.8 mg/dL (0.00-0.90) H 20.4 mg/dL (0.00-0.90) H Pro-B-Type Natriuretic Peptide 2097 pg/mL (0-125) H Total Protein 4.2 G/DL (6.4-8.2) L Albumin 1.7 G/DL (3.4-5.0) L Globulin 2.5 g/dL Albumin/Globulin Ratio 0.7 (1.0-2.7) L Random Vancomycin Level 15.7 ug/mL Microbiology Date/Time Source Procedure Growth Status 01/19/18 20:10 Abdominal Fluid Gram Stain - Final Resulted 01/19/18 20:10 Abdominal Fluid Aerobic Culture - Preliminary NO GROWTH AFTER 48 HOURS Resulted 01/19/18 20:10 Abdominal Fluid Anaerobic Culture - Preliminary NO GROWTH Resulted Intake and Output 01/21/18 01/22/18 19:00 07:00 Intake Total 2875.72 ml 1834.43 ml Output Total 2940 ml 1540 ml Balance -64.28 ml 294.43 ml Intake Oral 0 ml 0 ml IV Total 2875.72 ml 1834.43 ml Output Urine Total 2675 ml 1250 ml Stool Total 125 ml Drainage Total 140 ml 290 ml Objective General Appearance: WD/WN, lethargic EENT: normal ENT inspection Neck: non-tender, normal alignment, supple, other - tracheostomy Cardiovascular: normal peripheral pulses, normal rate, regular rhythm, regularly irregular, no gallop/murmur, no JVD Respiratory/Chest: Mech vent; chest wall non-tender, no accessory muscle use, rhonchi - bilaterally, other - Mech Vent Abdomen: normal bowel sounds, non tender, soft, no organomegaly, no mass Extremities: normal inspection Skin: normal pigmentation, warm/dry Assessment/Plan Problem List: (1) Incarcerated ventral hernia Assessment & Plan: S/P exploratory laparotomy on 01/19/18-see surgery note. S/P sigmoidectomy, omentectomy and hemicolectomy on 01/21/18. (2) Volvulus of sigmoid colon (3) Abdominal distension (4) Cardiac arrest Assessment & Plan: see cardiology note (5) Seizure disorder (6) Anemia (7) Hypertension Assessment & Plan: Hypotensived. Currently on pressors. (8) Encephalopathy (9) Dysphagia Assessment/Plan prognosis is guarded. Adrian Porter MD Jan 22, 2018 18:49
--- NOTE | 2018-01-22 19:52 | Infectious Diseases Prog Note ---
Assessment/Plan Assessment/Plan Assessment: Septic shock ; resolved after surgical exploration- 2ry intraabdominal source- (intra-abdominal peritonitis 2ry to malpositioned gastric feeding tube, incarcerated fat containing ventral hernia and likely sigmoid volvulus) --SP Re-exploration of abdomen, Sigmoid colectomy for volvulus, Takedown of splenic flexure, Left hemicolectomy, Creation of transverse colostomy, Abdominal closure 01/21 -OR findings: no further leakage of gastric contents or feeds. No bleeding. sigmoid colon remained significantly distended despite rectal tube placement and prior decompression. Sigmoid colon easily volvulized intraoperatively. --SP Exploratory laparotomy, Abdominal washout, G-tube replacement, wound vac placment, Excision of incarcerated ventral hernia, and Reduction of sigmoid volvulus 01/19 --no perforation or gross necrosis noted upon surgical exploration --abd fluid cx NTD -No obvious pathology on lungs on CXR. r/o UTI -Bcx 2/4 Diptheroids, 1/4 CONS (contaminants), Aerococcus sp (typically a urinary pathogen), ?UTI (often is not isolated from urine culture given special media requirements) -u/a initial normal; repeat WBC 10-15, nit +, leuk +1 but sq cells mod ( contaminated); ucx NTD -sp cx MDR ABC ( S Bactrim), GNB#2 (likely colonizer) -CXR: Hyperlucent the upper abdomen. Free air not excluded. Correlate clinically. Distended bowel also noted. No acute disease within the chest. Tracheostomy Fever/leukocytosis; Fever resolved; leukocytosis increased (likely post-op_ Elevated CPK- likely 2ry to sepsis, Dapto possibly also contributing- now improving -Dapto d/c 01/21 ?PNA- -CXR 01/21: Airspace disease versus atelectasis at the lung bases. Correlate clinically. Probable improvement in interstitial edema since the prior study. Bradycardia> Asystolic cardiac arrest Acute on chronic respirator failure Lactic acidosis; resolved INDIRA; improving HTN seizure disorder anoxic brain injury 2014 chronic resp failure trach/vent dependant 2014 s/p G-tube 2014 SNF resident Plan: -Continue IV Vancomycin abx d#5, Meropenem and Micafungin #5 for septic shock and for bowel emmanuel coverage -will narrow in the following days -01/21 SP Daptomycin #4 (d/c due to elevated CPK) -01/18 SP IV Vancomycin #1, Cefepime x1, Azithromycin x1, Zosyn x1 -Add PO Bactrim to cover for MDR ABC given possible infiltrates in CXR and worsening WBC -f/u cx -Monitor CBC/BMP, temperatures -Trend WBC, CK -Surgery following -wound care per hospital protocol Thank you for this consultation. Will continue to follow along with you. Discussed with RN Subjective Allergies: Coded Allergies: No Known Allergies (Unverified , 01/18/15) Subjective afebrile in >48 hrs WBC worsened today, probably post op went for abd closure yesterday off pressors now repeat Bcx NTD Objective Vital Signs Last 24 Hour Vital Signs Date Time Temp Pulse Resp B/P (MAP) Pulse Ox O2 Delivery O2 Flow Rate FiO2 01/22/18 18:00 110 18 113/60 (77) 99 01/22/18 17:04 114 18 30 01/22/18 17:00 94 17 119/73 (88) 99 01/22/18 16:00 98.1 119 107/60 (76) 98.1 01/22/18 16:00 30 01/22/18 16:00 Mechanical Ventilator 01/22/18 16:00 109 01/22/18 15:00 105 119/73 (88) 01/22/18 15:00 109 107/60 01/22/18 14:56 112 17 30 01/22/18 14:00 112 125/75 (92) 01/22/18 13:00 110 121/73 (89) 01/22/18 12:46 112 16 30 01/22/18 12:00 30 01/22/18 12:00 110 115/66 (82) 01/22/18 12:00 110 01/22/18 12:00 Mechanical Ventilator 01/22/18 11:34 211.6 116 22 96 01/22/18 11:00 114 116/72 (87) 01/22/18 10:40 110 18 30 01/22/18 10:00 113 120/70 (87) 01/22/18 09:11 108 19 30 01/22/18 09:00 113 18 117/70 97 Mechanical Ventilator 30 01/22/18 08:00 116 01/22/18 08:00 30 01/22/18 08:00 99.8 116 19 111/72 95 Mechanical Ventilator 30 99.8 7/6/18 08:00 Mechanical Ventilator 7/6/18 07:00 117 22 127/73 96 Mechanical Ventilator 30 7/6/18 06:47 110 20 30 7/6/18 06:00 113 20 120/77 96 Mechanical Ventilator 30 7/6/18 05:12 111 21 30 7/6/18 05:00 115 25 117/72 96 Mechanical Ventilator 30 7/6/18 04:00 119 7/6/18 04:00 99.0 117 25 107/65 95 Mechanical Ventilator 30 99.0 7/6/18 04:00 30 7/6/18 03:00 117 20 116/76 100 Mechanical Ventilator 30 7/6/18 02:55 110 20 30 7/6/18 02:00 109 19 123/74 100 Mechanical Ventilator 30 7/6/18 01:00 113 19 126/71 100 Mechanical Ventilator 30 7/6/18 00:48 116 19 30 7/6/18 00:00 113 7/6/18 00:00 30 7/6/18 00:00 98.3 115 19 118/72 99 Mechanical Ventilator 30 98.3 7//18 23:00 116 19 121/83 100 Mechanical Ventilator 30 7/5/18 22:51 113 18 30 7/5/18 22:00 110 19 114/63 100 Mechanical Ventilator 30 7/5/18 21:30 111 19 125/50 100 Mechanical Ventilator 30 7/5/18 21:15 110 19 114/68 100 Mechanical Ventilator 30 7/5/18 21:15 110 20 30 7/5/18 21:00 121/72 7/5/18 21:00 110 19 121/72 100 Mechanical Ventilator 30 7/5/18 20:45 108 19 115/73 100 Mechanical Ventilator 30 7/5/18 20:30 103 18 108/85 100 Mechanical Ventilator 30 7/5/18 20:15 106 18 117/70 100 Mechanical Ventilator 30 7/5/18 20:00 103 18 117/67 100 Mechanical Ventilator 30 7/5/18 20:00 30 7/5/18 20:00 117/67 7/5/18 20:00 109 7/5/18 19:45 109 17 119/67 99 Mechanical Ventilator 30 7/5/18 19:30 98.0 103 17 117/66 99 Mechanical Ventilator 30 98.0 Height (Feet): 5 Height (Inches): 3.00 Weight (Pounds): 196 Objective General Appearance: chronically ill HEENT: normocephalic, bilateral eye PERRL Neck: tracheotomy Respiratory: crackles, rhonchi Cardiovascular : tachycardia Gastrointestinal: Gtube present; significant abd distention with some grimacing upon palpation; diminished to absent bowel sounds Genitourinary: rock in place Musculoskeletal: other - contracted extremities Neurologic: other - nonverbal Skin: no rash or cellulitis Microbiology Date/Time Source Procedure Growth Status 01/19/18 20:10 Abdominal Fluid Gram Stain - Final Resulted 01/19/18 20:10 Abdominal Fluid Aerobic Culture - Preliminary NO GROWTH AFTER 48 HOURS Resulted 01/19/18 20:10 Abdominal Fluid Anaerobic Culture - Preliminary NO GROWTH Resulted Laboratory Tests Test 01/22/18 05:30 01/22/18 05:35 White Blood Count 20.4 K/UL (4.8-10.8) H Red Blood Count 3.28 M/UL (4.20-5.40) L Hemoglobin 9.8 G/DL (12.0-16.0) L Hematocrit 29.6 % (37.0-47.0) L Mean Corpuscular Volume 90 FL (80-99) Mean Corpuscular Hemoglobin 29.8 PG (27.0-31.0) Mean Corpuscular Hemoglobin Concent 33.1 G/DL (32.0-36.0) Red Cell Distribution Width 11.8 % (11.6-14.8) Platelet Count 105 K/UL (150-450) L Mean Platelet Volume 7.8 FL (6.5-10.1) Neutrophils (%) (Auto) % (45.0-75.0) Lymphocytes (%) (Auto) % (20.0-45.0) Monocytes (%) (Auto) % (1.0-10.0) Eosinophils (%) (Auto) % (0.0-3.0) Basophils (%) (Auto) % (0.0-2.0) Differential Total Cells Counted 100 Neutrophils % (Manual) 83 % (45-75) H Lymphocytes % (Manual) 3 % (20-45) L Monocytes % (Manual) 12 % (1-10) H Eosinophils % (Manual) 0 % (0-3) Basophils % (Manual) 0 % (0-2) Metamyelocytes % 1 % (0-0) H Band Neutrophils 1 % (0-8) Platelet Estimate Decreased L Platelet Morphology Normal Hypochromasia 2+ Anisocytosis 1+ Spherocytes 1+ Sodium Level 147 MMOL/L (136-145) H Potassium Level 3.1 MMOL/L (3.5-5.1) L Chloride Level 117 MMOL/L (98-107) H Carbon Dioxide Level 18 MMOL/L (21-32) L Anion Gap 12 mmol/L (5-15) Blood Urea Nitrogen 27 mg/dL (7-18) H Creatinine 1.9 MG/DL (0.55-1.30) H Estimat Glomerular Filtration Rate 36.2 mL/min (>60) Glucose Level 66 MG/DL (74-106) L Uric Acid 5.5 MG/DL (2.6-7.2) Calcium Level 6.8 MG/DL (8.5-10.1) L Phosphorus Level 3.0 MG/DL (2.5-4.9) Magnesium Level 1.9 MG/DL (1.8-2.4) Total Bilirubin 1.3 MG/DL (0.2-1.0) H Direct Bilirubin 1.0 MG/DL (0.0-0.3) H Aspartate Amino Transf (AST/SGOT) 252 U/L (15-37) H Alanine Aminotransferase (ALT/SGPT) 520 U/L (12-78) H Alkaline Phosphatase 106 U/L (46-116) Total Creatine Kinase 720 U/L (26-308) H C-Reactive Protein, Quantitative 25.8 mg/dL (0.00-0.90) H 20.4 mg/dL (0.00-0.90) H Pro-B-Type Natriuretic Peptide 2097 pg/mL (0-125) H Total Protein 4.2 G/DL (6.4-8.2) L Albumin 1.7 G/DL (3.4-5.0) L Globulin 2.5 g/dL Albumin/Globulin Ratio 0.7 (1.0-2.7) L Random Vancomycin Level 15.7 ug/mL Current Medications Medications (Trade) Dose Ordered Sig/Kel Route PRN Reason Start Time Stop Time Status Last Admin Dose Admin Acetaminophen (Tylenol) 650 mg Q4H PRN ORAL FEVER 7/2/18 13:00 02/17/18 08:59 Albuterol/ Ipratropium (Albuterol/ Ipratropium) 3 ml Q4H PRN HHN Shortness of Breath 01/18/18 15:15 01/23/18 07:14 Chlorhexidine Gluconate (Neela-Hex 2%) 1 applic DAILY@2000 TOPIC 01/20/18 20:00 02/19/18 19:59 01/21/18 19:40 Dextrose (Dextrose 50%) 25 ml STAT PRN IV Hypoglycemia 01/19/18 07:15 02/17/18 07:14 Dextrose (Dextrose 50%) 50 ml STAT PRN IV Hypoglycemia 01/19/18 07:30 02/17/18 07:29 Dextrose/Sodium Chloride 1,000 ml @ 125 mls/hr Q8H IV 01/21/18 12:30 02/20/18 12:29 01/22/18 12:38 Heparin Sodium (Porcine) (Heparin 5000 units/ml) 5,000 units EVERY 12 HOURS SUBQ 01/18/18 21:00 02/17/18 08:59 01/20/18 21:14 Heparin Sodium/ Sodium Chloride (Heparin 2000 units/Ns 1000ml premix) 2,000 unit ONCE PRN INJ FOR PICC PLACEMENT 01/21/18 17:30 01/22/18 23:59 Hydrocortisone (Solu-CORTEF) 50 mg EVERY 8 HOURS IV 01/22/18 14:00 02/19/18 21:59 01/22/18 15:01 Levetiracetam 100 ml @ 400 mls/hr Q12HR IVPB 01/18/18 22:30 02/17/18 22:29 01/22/18 08:37 Lidocaine HCl (Xylocaine 1% 30ml) 30 ml ONCE PRN INJ PICC PLACEMENT 01/21/18 17:30 01/22/18 23:59 Lorazepam (Ativan 2mg/ml 1ml) 2 mg Q2H PRN IV For Anxiety 01/18/18 13:15 01/25/18 07:14 Meropenem 1 gm/ Sodium Chloride 55 ml @ 110 mls/hr Q12H IVPB 01/18/18 19:30 01/27/18 19:29 01/22/18 07:30 Micafungin Sodium 100 mg/Sodium Chloride 110 ml @ 110 mls/hr Q24H IVPB 01/18/18 20:30 01/25/18 20:29 01/21/18 19:40 Morphine Sulfate (Morphine Sulfate) 4 mg Q4H PRN IVP Severe Pain (Pain Scale 7-10) 01/18/18 15:15 01/25/18 07:14 Norepinephrine Bitartrate 8 mg/ Dextrose 508 ml @ 0 mls/hr Q24H IV 01/18/18 17:00 02/17/18 16:59 01/21/18 07:59 Ondansetron HCl (Zofran) 4 mg Q6H PRN IVP Nausea & Vomiting 01/18/18 13:15 02/17/18 07:14 01/22/18 01:17 Pantoprazole (Protonix) 40 mg Q12HR IV 01/19/18 21:00 02/17/18 08:59 01/22/18 08:37 Phenylephrine HCl 50 mg/Dextrose 250 ml @ 0 mls/hr Q24H IV 01/18/18 15:00 02/17/18 14:59 01/20/18 22:49 Phenytoin 150 mg/ Sodium Chloride 58 ml @ 114 mls/hr EVERY 12 HOURS IVPB 01/18/18 22:30 02/17/18 22:29 01/22/18 10:06 Polyethylene Glycol (Miralax) 17 gm DAILYPRN PRN ORAL Constipation 01/19/18 07:15 02/17/18 07:14 Vancomycin HCl (Vanco rx to dose) 1 ea DAILY PRN MISC Per rx protocol 01/21/18 11:30 02/20/18 11:29 Vancomycin HCl 1 gm/Dextrose 275 ml @ 183.708 mls/hr Q24H IVPB 01/22/18 13:00 01/27/18 12:59 01/22/18 12:38 Amelia Bah M.D. Jan 22, 2018 19:52
[2018-01-22] MEDS: Dyna-Hex 2% Top Sol 2oz TOPIC SCH (19:59)
[2018-01-22] MEDS: Micafungin 100 MG in NS 110 ML IVPB SCH (20:45)
[2018-01-22] MEDS ORDERED: Bactrim-DS 1 tab ORAL SCH (21:00)
[2018-01-22] MEDS: Bactrim 20ml in D5W 550ml IV SCH (23:14)
[2018-01-23] VITALS (24 sets, daily range): BP systolic 99–127; BP diastolic 53–88
[2018-01-23] MEDS: D5NS 1,000 ML IV SCH (04:50)
[2018-01-23 06:02] LABS: HEMATOCRIT 22.5 % (37.0-47.0); HEMOGLOBIN 7.4 G/DL (12.0-16.0); MEAN CORPUSCULAR VOLUME 91 FL (80-99); PLATELET COUNT 94 K/UL (150-450); RED BLOOD COUNT 2.48 M/UL (4.20-5.40); RED CELL DISTRIBUTION WIDTH 12.1 % (11.6-14.8); WHITE BLOOD COUNT 18.8 K/UL (4.8-10.8)
[2018-01-23] MEDS: Hydrocortisone 100mg Inj IV SCH ×3 (06:08→22:18)
[2018-01-23 06:17] LABS: ALANINE AMINOTRANSFERASE 288 U/L (12-78); ALBUMIN 1.5 G/DL (3.4-5.0); ALBUMIN/GLOBULIN RATIO 0.5 (1.0-2.7); ALKALINE PHOSPHATASE 143 U/L (46-116); ANION GAP 10 mmol/L (5-15); ASPARTATE AMINO TRANSFERASE 68 U/L (15-37); BILIRUBIN,TOTAL 0.6 MG/DL (0.2-1.0); BLOOD UREA NITROGEN 28 mg/dL (7-18); CALCIUM 7.1 MG/DL (8.5-10.1); CARBON DIOXIDE 19 MMOL/L (21-32); CHLORIDE 119 MMOL/L (98-107); CREATINE KINASE 363 U/L (26-308); CREATININE 1.6 MG/DL (0.55-1.30); POTASSIUM 2.9 MMOL/L (3.5-5.1); SODIUM 148 MMOL/L (136-145)
[2018-01-23 07:03] LABS: PHOSPHORUS 2.7 MG/DL (2.5-4.9)
[2018-01-23] MEDS: Meropenem 1 GM in NS 55 ML IVPB SCH ×2 (07:43→19:37)
[2018-01-23] MEDS: levETIRAcetam 1,000mg/NS100ml 100 ML IVPB SCH ×2 (08:31→21:10)
[2018-01-23] MEDS: Pantoprazole Inj IV SCH ×2 (08:31→21:11)
[2018-01-23] MEDS ORDERED: D5NS 1000ml IV ONE (08:57)
[2018-01-23] MEDS: Heparin 5000 units/ml inj SUBQ SCH ×2 (09:00→21:00)
[2018-01-23] MEDS: NS IVPB SCH ×2 (09:05→21:10)
[2018-01-23] MEDS: PHENYTOIN IVPB SCH ×2 (09:05→21:10)
[2018-01-23] MEDS: D5 1/2NS w/KCl 20mEq 1,000 ML IV SCH ×2 (09:40→19:01)
--- NOTE | 2018-01-23 09:42 | Diagnostic Imaging Report ---
EXAM: XR Chest, 1 View CLINICAL HISTORY: DYSPNEA TECHNIQUE: Frontal view of the chest. COMPARISON: . FINDINGS: Interval placement of right arm PICC, the tip appropriately positioned in the lower SVC. Tracheostomy again noted. Increasing basilar opacities, likely combination of pleural fluid and atelectasis/consolidation. Persistent elevation of the right hemidiaphragm. Heart is at the upper limits of normal for size, but may be exaggerated by portable technique. No pneumothorax. IMPRESSION: Increasing basilar opacities, likely combination of pleural fluid and atelectasis/consolidation. Interval placement of appropriately positioned right arm PICC.
--- NOTE | 2018-01-23 10:25 | Pulmonolgy Critical Care Note ---
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 Discussed with: nurses, consultants, foster care case managerresidential field manager - Objective Last 24 Hour Vital Signs Date Time Temp Pulse Resp B/P (MAP) Pulse Ox O2 Delivery O2 Flow Rate FiO2 01/23/18 10:00 92 18 111/53 (72) 99 01/23/18 09:02 96 17 30 01/23/18 09:00 98 19 120/61 (80) 99 01/23/18 08:00 30 01/23/18 08:00 Mechanical Ventilator 01/23/18 08:00 98.5 97 19 110/56 (74) 100 98.5 01/23/18 07:34 92 01/23/18 07:00 95 19 122/63 (82) 100 01/23/18 06:35 102 18 30 01/23/18 06:00 102 19 119/59 (79) 100 01/23/18 05:07 99 21 30 01/23/18 05:00 101 18 115/57 (76) 100 01/23/18 04:00 99.0 106 16 112/60 (77) 94 99.0 01/23/18 04:00 Mechanical Ventilator 01/23/18 04:00 102 01/23/18 04:00 30 01/23/18 03:10 112 21 30 01/23/18 03:09 97 21 Mechanical Ventilator 100 01/23/18 03:00 104 16 112/61 (78) 94 01/23/18 02:00 102 16 99/56 (70) 98 01/23/18 01:00 110 16 110/62 (78) 98 01/23/18 00:44 112 18 30 01/23/18 00:00 99.2 109 16 116/62 (80) 95 99.2 01/23/18 00:00 113 01/23/18 00:00 Mechanical Ventilator 01/23/18 00:00 30 01/22/18 23:09 113 18 30 01/22/18 23:00 111 16 114/60 (78) 94 01/22/18 22:00 111 16 112/60 (77) 94 01/22/18 21:13 112 18 30 01/22/18 21:00 115 16 114/62 (79) 94 01/22/18 20:00 30 01/22/18 20:00 Mechanical Ventilator 01/22/18 20:00 99.0 116 16 103/58 (73) 98 99.0 01/22/18 20:00 116 01/22/18 19:27 107 18 30 01/22/18 19:00 99.3 110 18 108/62 (77) 99 99.3 01/22/18 18:00 110 18 113/60 (77) 99 01/22/18 17:04 114 18 30 01/22/18 17:00 94 17 119/73 (88) 99 01/22/18 17:00 113/60 01/22/18 16:00 98.1 119 107/60 (76) 98.1 01/22/18 16:00 30 01/22/18 16:00 Mechanical Ventilator 01/22/18 16:00 109 01/22/18 15:00 105 119/73 (88) 01/22/18 15:00 109 107/60 01/22/18 14:56 112 17 30 01/22/18 14:00 112 125/75 (92) 01/22/18 13:00 110 121/73 (89) 01/22/18 12:46 112 16 30 01/22/18 12:00 30 01/22/18 12:00 110 115/66 (82) 01/22/18 12:00 110 01/22/18 12:00 Mechanical Ventilator 01/22/18 11:34 211.6 116 22 96 01/22/18 11:00 114 116/72 (87) 01/22/18 10:40 110 18 30 Status: obtunded Condition: critical HEENT: atraumatic Lungs: chest wall tender Heart: HR/BP stable, HR/BP unstable Abdomen: soft, active bowel sounds, feeding tube Extremities: edema Decubiti: location Accucheck: 248 Critical Care - Subjective ROS Limited/Unobtainable: Yes Condition: critical EKG Rhythm: Sinus Rhythm FI02: 30 Vent Support Breath Rate: 12 Vent Support Mode: AC Vent Tidal Volume: 600 Sputum Amount: Small PEEP: 5.0 PIP: 33 I&O: Intake and Output 01/22/18 01/23/18 19:00 07:00 Intake Total 1463 ml 2393 ml Output Total 1210 ml 840 ml Balance 253 ml 1553 ml Intake Oral 0 ml 0 ml IV Total 1463 ml 2393 ml Output Urine Total 870 ml 650 ml Gastric Drainage Total 0 ml Drainage Total 340 ml 190 ml # Bowel Movements 4 2 Labs: Laboratory Tests Test 01/23/18 04:00 01/23/18 05:00 Arterial Blood pH 7.370 (7.350-7.450) Arterial Blood Partial Pressure CO2 29.9 mmHg (35.0-45.0) L Arterial Blood Partial Pressure O2 53.8 mmHg (75.0-100.0) L Arterial Blood HCO3 16.6 mmol/L (22.0-26.0) L Arterial Blood Oxygen Saturation 86.2 % (92.0-98.0) L Arterial Blood Base Excess -7.7 Benjie Test Positive White Blood Count 18.8 K/UL (4.8-10.8) H Red Blood Count 2.48 M/UL (4.20-5.40) L Hemoglobin 7.4 G/DL (12.0-16.0) L Hematocrit 22.5 % (37.0-47.0) L Mean Corpuscular Volume 91 FL (80-99) Mean Corpuscular Hemoglobin 30.0 PG (27.0-31.0) Mean Corpuscular Hemoglobin Concent 33.1 G/DL (32.0-36.0) Red Cell Distribution Width 12.1 % (11.6-14.8) Platelet Count 94 K/UL (150-450) L Mean Platelet Volume 7.7 FL (6.5-10.1) Neutrophils (%) (Auto) % (45.0-75.0) Lymphocytes (%) (Auto) % (20.0-45.0) Monocytes (%) (Auto) % (1.0-10.0) Eosinophils (%) (Auto) % (0.0-3.0) Basophils (%) (Auto) % (0.0-2.0) Differential Total Cells Counted 100 Neutrophils % (Manual) 79 % (45-75) H Lymphocytes % (Manual) 10 % (20-45) L Monocytes % (Manual) 10 % (1-10) Eosinophils % (Manual) 1 % (0-3) Basophils % (Manual) 0 % (0-2) Band Neutrophils 0 % (0-8) Nucleated Red Blood Cells 1 /100 WBC Platelet Estimate Decreased L Platelet Morphology Normal Hypochromasia 3+ Anisocytosis 1+ Spherocytes 2+ Sodium Level 148 MMOL/L (136-145) H Potassium Level 2.9 MMOL/L (3.5-5.1) L Chloride Level 119 MMOL/L (98-107) H Carbon Dioxide Level 19 MMOL/L (21-32) L Anion Gap 10 mmol/L (5-15) Blood Urea Nitrogen 28 mg/dL (7-18) H Creatinine 1.6 MG/DL (0.55-1.30) H Estimat Glomerular Filtration Rate 44.2 mL/min (>60) Glucose Level 100 MG/DL (74-106) Uric Acid 5.5 MG/DL (2.6-7.2) Calcium Level 7.1 MG/DL (8.5-10.1) L Phosphorus Level 2.7 MG/DL (2.5-4.9) Magnesium Level 1.7 MG/DL (1.8-2.4) L Total Bilirubin 0.6 MG/DL (0.2-1.0) Gamma Glutamyl Transpeptidase 211 U/L (5-85) H Aspartate Amino Transf (AST/SGOT) 68 U/L (15-37) H Alanine Aminotransferase (ALT/SGPT) 288 U/L (12-78) H Alkaline Phosphatase 143 U/L (46-116) H Total Creatine Kinase 363 U/L (26-308) H Pro-B-Type Natriuretic Peptide 1150 pg/mL (0-125) H Total Protein 4.6 G/DL (6.4-8.2) L Albumin 1.5 G/DL (3.4-5.0) L Globulin 3.1 g/dL Albumin/Globulin Ratio 0.5 (1.0-2.7) L Yanick Hernandez MD Jan 23, 2018 10:25
--- NOTE | 2018-01-23 10:54 | Nephrology Progress Note ---
Assessment/Plan Problem List: (1) Acute on chronic respiratory failure Assessment: ATN (2) Sepsis Assessment: shock (3) Seizure disorder (4) Anemia Assessment: worsened Assessment Septic shock now off pressors, hence Oliguria and acute renal failure s/p 2 OR visits , for peritonitis Cr lower Others: (1) Acute on chronic respiratory failure (2) Sepsis (3) Anoxic brain injury (4) Feeding by G-tube (5) Tachycardia Plan K supplement Hydrate, change IV to hypotonic favor transfusion for low H&H albumin bollous hydrocortisone Antibiotics monitor renal parameters Per ID Pulm Surg Subjective ROS Limited/Unobtainable: Yes Objective Objective Last 24 Hour Vital Signs Date Time Temp Pulse Resp B/P (MAP) Pulse Ox O2 Delivery O2 Flow Rate FiO2 01/23/18 10:00 92 18 111/53 (72) 99 01/23/18 09:02 96 17 30 01/23/18 09:00 98 19 120/61 (80) 99 01/23/18 08:00 30 01/23/18 08:00 Mechanical Ventilator 01/23/18 08:00 98.5 97 19 110/56 (74) 100 98.5 01/23/18 07:34 92 01/23/18 07:00 95 19 122/63 (82) 100 01/23/18 06:35 102 18 30 01/23/18 06:00 102 19 119/59 (79) 100 01/23/18 05:07 99 21 30 01/23/18 05:00 101 18 115/57 (76) 100 01/23/18 04:00 99.0 106 16 112/60 (77) 94 99.0 01/23/18 04:00 Mechanical Ventilator 01/23/18 04:00 102 01/23/18 04:00 30 01/23/18 03:10 112 21 30 01/23/18 03:09 97 21 Mechanical Ventilator 100 01/23/18 03:00 104 16 112/61 (78) 94 01/23/18 02:00 102 16 99/56 (70) 98 01/23/18 01:00 110 16 110/62 (78) 98 01/23/18 00:44 112 18 30 01/23/18 00:00 99.2 109 16 116/62 (80) 95 99.2 01/23/18 00:00 113 01/23/18 00:00 Mechanical Ventilator 01/23/18 00:00 30 01/22/18 23:09 113 18 30 01/22/18 23:00 111 16 114/60 (78) 94 01/22/18 22:00 111 16 112/60 (77) 94 01/22/18 21:13 112 18 30 01/22/18 21:00 115 16 114/62 (79) 94 01/22/18 20:00 30 01/22/18 20:00 Mechanical Ventilator 01/22/18 20:00 99.0 116 16 103/58 (73) 98 99.0 01/22/18 20:00 116 01/22/18 19:27 107 18 30 01/22/18 19:00 99.3 110 18 108/62 (77) 99 99.3 01/22/18 18:00 110 18 113/60 (77) 99 01/22/18 17:04 114 18 30 01/22/18 17:00 94 17 119/73 (88) 99 01/22/18 17:00 113/60 01/22/18 16:00 98.1 119 107/60 (76) 98.1 01/22/18 16:00 30 01/22/18 16:00 Mechanical Ventilator 01/22/18 16:00 109 01/22/18 15:00 105 119/73 (88) 01/22/18 15:00 109 107/60 01/22/18 14:56 112 17 30 01/22/18 14:00 112 125/75 (92) 01/22/18 13:00 110 121/73 (89) 01/22/18 12:46 112 16 30 01/22/18 12:00 30 01/22/18 12:00 110 115/66 (82) 01/22/18 12:00 110 01/22/18 12:00 Mechanical Ventilator 01/22/18 11:34 211.6 116 22 96 01/22/18 11:00 114 116/72 (87) Intake and Output 01/22/18 01/23/18 19:00 07:00 Intake Total 1463 ml 2393 ml Output Total 1210 ml 840 ml Balance 253 ml 1553 ml Intake Oral 0 ml 0 ml IV Total 1463 ml 2393 ml Output Urine Total 870 ml 650 ml Gastric Drainage Total 0 ml Drainage Total 340 ml 190 ml # Bowel Movements 4 2 Laboratory Tests 01/23/18 04:00: Arterial Blood pH 7.370, Arterial Blood Partial Pressure CO2 29.9L, Arterial Blood Partial Pressure O2 53.8L, Arterial Blood HCO3 16.6L, Arterial Blood Oxygen Saturation 86.2L, Arterial Blood Base Excess -7.7, Benjie Test Positive 01/23/18 05:00: White Blood Count 18.8H, Red Blood Count 2.48L, Hemoglobin 7.4L, Hematocrit 22.5L, Mean Corpuscular Volume 91, Mean Corpuscular Hemoglobin 30.0, Mean Corpuscular Hemoglobin Concent 33.1, Red Cell Distribution Width 12.1, Platelet Count 94L, Mean Platelet Volume 7.7, Neutrophils (%) (Auto) , Lymphocytes (%) ( Auto) , Monocytes (%) (Auto) , Eosinophils (%) (Auto) , Basophils (%) (Auto) , Differential Total Cells Counted 100, Neutrophils % (Manual) 79H, Lymphocytes % (Manual) 10L, Monocytes % (Manual) 10, Eosinophils % (Manual) 1, Basophils % ( Manual) 0, Band Neutrophils 0, Nucleated Red Blood Cells 1, Platelet Estimate DecreasedL, Platelet Morphology Normal, Hypochromasia 3+, Anisocytosis 1+, Spherocytes 2+, Sodium Level 148H, Potassium Level 2.9L, Chloride Level 119H, Carbon Dioxide Level 19L, Anion Gap 10, Blood Urea Nitrogen 28H, Creatinine 1.6H , Estimat Glomerular Filtration Rate 44.2, Glucose Level 100, Uric Acid 5.5, Calcium Level 7.1L, Phosphorus Level 2.7, Magnesium Level 1.7L, Total Bilirubin 0.6, Gamma Glutamyl Transpeptidase 211H, Aspartate Amino Transf (AST/SGOT) 68H, Alanine Aminotransferase (ALT/SGPT) 288H, Alkaline Phosphatase 143H, Total Creatine Kinase 363H, Pro-B-Type Natriuretic Peptide 1150H, Total Protein 4.6L, Albumin 1.5L, Globulin 3.1, Albumin/Globulin Ratio 0.5L Height (Feet): 5 Height (Inches): 3.00 Weight (Pounds): 184 General Appearance: no apparent distress, lethargic Cardiovascular: tachycardia Respiratory/Chest: decreased breath sounds Abdomen: distended Objective no change LORRIE PERAZA Jan 23, 2018 10:54
[2018-01-23] MEDS: Bactrim 20ml in D5W 550ml IV SCH ×2 (11:31→22:19)
--- NOTE | 2018-01-23 14:18 | Internal Med Progress Note ---
Subjective Date of Service: Jan 23, 2018 Physician Name Adrian Porter Attending Physician Guillermo Morel MD Current Medications Medications (Trade) Dose Ordered Sig/Kel Route PRN Reason Start Time Stop Time Status Last Admin Dose Admin Acetaminophen (Tylenol) 650 mg Q4H PRN ORAL FEVER 01/18/18 13:00 02/17/18 08:59 Chlorhexidine Gluconate (Neela-Hex 2%) 1 applic DAILY@2000 TOPIC 01/20/18 20:00 02/19/18 19:59 01/22/18 19:59 Dextrose (Dextrose 50%) 25 ml STAT PRN IV Hypoglycemia 01/19/18 07:15 02/17/18 07:14 Dextrose (Dextrose 50%) 50 ml STAT PRN IV Hypoglycemia 01/19/18 07:30 02/17/18 07:29 Dextrose/ Electrolytes 1,000 ml @ 100 mls/hr Q10H IV 01/23/18 09:00 02/22/18 08:59 01/23/18 09:40 Heparin Sodium (Porcine) (Heparin 5000 units/ml) 5,000 units EVERY 12 HOURS SUBQ 01/18/18 21:00 02/17/18 08:59 01/20/18 21:14 Hydrocortisone (Solu-CORTEF) 50 mg EVERY 8 HOURS IV 01/22/18 14:00 02/19/18 21:59 01/23/18 06:08 Levetiracetam 100 ml @ 400 mls/hr Q12HR IVPB 01/18/18 22:30 02/17/18 22:29 01/23/18 08:31 Lorazepam (Ativan 2mg/ml 1ml) 2 mg Q2H PRN IV For Anxiety 01/18/18 13:15 01/25/18 07:14 Meropenem 1 gm/ Sodium Chloride 55 ml @ 110 mls/hr Q12H IVPB 01/18/18 19:30 01/27/18 19:29 01/23/18 07:43 Micafungin Sodium 100 mg/Sodium Chloride 110 ml @ 110 mls/hr Q24H IVPB 01/18/18 20:30 01/25/18 20:29 01/22/18 20:45 Morphine Sulfate (Morphine Sulfate) 4 mg Q4H PRN IVP Severe Pain (Pain Scale 7-10) 01/18/18 15:15 01/25/18 07:14 Norepinephrine Bitartrate 8 mg/ Dextrose 508 ml @ 0 mls/hr Q24H IV 01/18/18 17:00 02/17/18 16:59 01/21/18 07:59 Ondansetron HCl (Zofran) 4 mg Q6H PRN IVP Nausea & Vomiting 01/18/18 13:15 02/17/18 07:14 01/22/18 01:17 Pantoprazole (Protonix) 40 mg Q12HR IV 01/19/18 21:00 02/17/18 08:59 01/23/18 08:31 Phenylephrine HCl 50 mg/Dextrose 250 ml @ 0 mls/hr Q24H IV 01/18/18 15:00 02/17/18 14:59 01/20/18 22:49 Phenytoin 150 mg/ Sodium Chloride 58 ml @ 114 mls/hr EVERY 12 HOURS IVPB 01/18/18 22:30 02/17/18 22:29 01/23/18 09:05 Polyethylene Glycol (Miralax) 17 gm DAILYPRN PRN ORAL Constipation 01/19/18 07:15 02/17/18 07:14 Trimethoprim/ Sulfamethoxazole 20 ml/Dextrose 570 ml @ 380 mls/hr Q12H IV 01/22/18 23:00 01/29/18 22:59 01/23/18 11:31 Vancomycin HCl (Vanco rx to dose) 1 ea DAILY PRN MISC Per rx protocol 01/21/18 11:30 02/20/18 11:29 Vancomycin HCl 1 gm/Dextrose 275 ml @ 183.708 mls/hr Q24H IVPB 01/22/18 13:00 01/27/18 12:59 01/22/18 12:38 Allergies: Coded Allergies: No Known Allergies (Unverified , 01/18/15) ROS Limited/Unobtainable: Yes Subjective 37 YO F admitted with abdominal distention. S/P cardiac arrest. S/P exploratory laparotomy 01/19/18. S/P sigmoidectomy and hemicolectomy 01/21/18. Cover for Int Efraín-Dr Morel. Intubated and sedated. ICU Objective Last Vital Signs Date Time Temp Pulse Resp B/P (MAP) Pulse Ox O2 Delivery O2 Flow Rate FiO2 01/23/18 12:00 Mechanical Ventilator 01/23/18 12:00 30 01/23/18 12:00 98.8 74 17 120/61 (80) 100 98.8 01/21/18 19:00 30.0 Laboratory Tests Test 01/23/18 04:00 01/23/18 05:00 Arterial Blood pH 7.370 (7.350-7.450) Arterial Blood Partial Pressure CO2 29.9 mmHg (35.0-45.0) L Arterial Blood Partial Pressure O2 53.8 mmHg (75.0-100.0) L Arterial Blood HCO3 16.6 mmol/L (22.0-26.0) L Arterial Blood Oxygen Saturation 86.2 % (92.0-98.0) L Arterial Blood Base Excess -7.7 Benjie Test Positive White Blood Count 18.8 K/UL (4.8-10.8) H Red Blood Count 2.48 M/UL (4.20-5.40) L Hemoglobin 7.4 G/DL (12.0-16.0) L Hematocrit 22.5 % (37.0-47.0) L Mean Corpuscular Volume 91 FL (80-99) Mean Corpuscular Hemoglobin 30.0 PG (27.0-31.0) Mean Corpuscular Hemoglobin Concent 33.1 G/DL (32.0-36.0) Red Cell Distribution Width 12.1 % (11.6-14.8) Platelet Count 94 K/UL (150-450) L Mean Platelet Volume 7.7 FL (6.5-10.1) Neutrophils (%) (Auto) % (45.0-75.0) Lymphocytes (%) (Auto) % (20.0-45.0) Monocytes (%) (Auto) % (1.0-10.0) Eosinophils (%) (Auto) % (0.0-3.0) Basophils (%) (Auto) % (0.0-2.0) Differential Total Cells Counted 100 Neutrophils % (Manual) 79 % (45-75) H Lymphocytes % (Manual) 10 % (20-45) L Monocytes % (Manual) 10 % (1-10) Eosinophils % (Manual) 1 % (0-3) Basophils % (Manual) 0 % (0-2) Band Neutrophils 0 % (0-8) Nucleated Red Blood Cells 1 /100 WBC Platelet Estimate Decreased L Platelet Morphology Normal Hypochromasia 3+ Anisocytosis 1+ Spherocytes 2+ Sodium Level 148 MMOL/L (136-145) H Potassium Level 2.9 MMOL/L (3.5-5.1) L Chloride Level 119 MMOL/L (98-107) H Carbon Dioxide Level 19 MMOL/L (21-32) L Anion Gap 10 mmol/L (5-15) Blood Urea Nitrogen 28 mg/dL (7-18) H Creatinine 1.6 MG/DL (0.55-1.30) H Estimat Glomerular Filtration Rate 44.2 mL/min (>60) Glucose Level 100 MG/DL (74-106) Uric Acid 5.5 MG/DL (2.6-7.2) Calcium Level 7.1 MG/DL (8.5-10.1) L Phosphorus Level 2.7 MG/DL (2.5-4.9) Magnesium Level 1.7 MG/DL (1.8-2.4) L Total Bilirubin 0.6 MG/DL (0.2-1.0) Gamma Glutamyl Transpeptidase 211 U/L (5-85) H Aspartate Amino Transf (AST/SGOT) 68 U/L (15-37) H Alanine Aminotransferase (ALT/SGPT) 288 U/L (12-78) H Alkaline Phosphatase 143 U/L (46-116) H Total Creatine Kinase 363 U/L (26-308) H Pro-B-Type Natriuretic Peptide 1150 pg/mL (0-125) H Total Protein 4.6 G/DL (6.4-8.2) L Albumin 1.5 G/DL (3.4-5.0) L Globulin 3.1 g/dL Albumin/Globulin Ratio 0.5 (1.0-2.7) L Intake and Output 01/22/18 01/23/18 19:00 07:00 Intake Total 1463 ml 2393 ml Output Total 1210 ml 840 ml Balance 253 ml 1553 ml Intake Oral 0 ml 0 ml IV Total 1463 ml 2393 ml Output Urine Total 870 ml 650 ml Gastric Drainage Total 0 ml Drainage Total 340 ml 190 ml # Bowel Movements 4 2 Objective General Appearance: WD/WN, lethargic EENT: normal ENT inspection Neck: non-tender, normal alignment, supple, other - tracheostomy Cardiovascular: normal peripheral pulses, normal rate, regular rhythm, regularly irregular, no gallop/murmur, no JVD Respiratory/Chest: Mech vent; chest wall non-tender, no accessory muscle use, rhonchi - bilaterally, other - Mech Vent Abdomen: normal bowel sounds, non tender, soft, no organomegaly, no mass Extremities: normal inspection Skin: normal pigmentation, warm/dry Assessment/Plan Problem List: (1) Incarcerated ventral hernia Assessment & Plan: S/P exploratory laparotomy on 01/19/18-see surgery note. S/P sigmoidectomy, omentectomy and hemicolectomy on 01/21/18. Continue bactrim, vanco and meropenem per ID (2) Volvulus of sigmoid colon (3) Abdominal distension Assessment & Plan: Resolving-see surgery note. (4) Cardiac arrest Assessment & Plan: see cardiology note (5) Seizure disorder Assessment & Plan: Continue keppra and dilantin (6) Anemia (7) Hypertension Assessment & Plan: Hypotensived. Currently on pressors. (8) Encephalopathy (9) Dysphagia Status: not improved Assessment/Plan prognosis is guarded. Adrian Porter MD Jan 23, 2018 14:18
[2018-01-23] MEDS: Vancomycin 1gm/D5W 275ml IVPB SCH ×2 (14:22)
--- NOTE | 2018-01-23 14:30 | General Progress Note ---
Assessment/Plan Status: stable, not improved Assessment/Plan #. Leukocytosis, likely due to infection, peritonitis, now better --> The patient with lactic acidosis. Lactic acid 7.4. --> Currently on pressors. Rule out infectious etiology. --> On broad-spectrum antibiotics and antifungals. --> Closely monitor for improvement. #. Anemia currently due to blood loss from surgery in addition to hemodilution --> cr goal is >7 --> jak2 level pending under serology as she had erythroytosis on persentation --> anemia w/u has been reviewed #. Coagulopathy with inr 1.6 likely due to malnutrition v dic --> obtain a mixing study #. Septic shock, closely monitor, --> on antibiotics, broad spectrum. #. Seizure disorder, currently on antiseizure medication. #. Respiratory failure, status post trach and vent. #. Dysphagia, status post gastrostomy tube. Subjective Date patient seen: Jan 23, 2018 Allergies: Coded Allergies: No Known Allergies (Unverified , 01/18/15) All Systems: reviewed and negative except above Subjective Pt remains in ICU and comatose. No acute events. No new orders. Pt remains in stable but critical condition. Objective Last 24 Hour Vital Signs Date Time Temp Pulse Resp B/P (MAP) Pulse Ox O2 Delivery O2 Flow Rate FiO2 01/23/18 13:09 86 19 30 01/23/18 12:00 Mechanical Ventilator 01/23/18 12:00 30 01/23/18 12:00 98.8 74 17 120/61 (80) 100 98.8 01/23/18 11:40 93 01/23/18 11:00 92 19 127/70 (89) 99 01/23/18 10:38 92 15 30 01/23/18 10:00 92 18 111/53 (72) 99 01/23/18 09:02 96 17 30 01/23/18 09:00 98 19 120/61 (80) 99 01/23/18 08:00 30 01/23/18 08:00 Mechanical Ventilator 01/23/18 08:00 98.5 97 19 110/56 (74) 100 98.5 01/23/18 07:34 92 01/23/18 07:00 95 19 122/63 (82) 100 01/23/18 06:35 102 18 30 01/23/18 06:00 102 19 119/59 (79) 100 01/23/18 05:07 99 21 30 01/23/18 05:00 101 18 115/57 (76) 100 01/23/18 04:00 99.0 106 16 112/60 (77) 94 99.0 01/23/18 04:00 Mechanical Ventilator 01/23/18 04:00 102 01/23/18 04:00 30 01/23/18 03:10 112 21 30 01/23/18 03:09 97 21 Mechanical Ventilator 100 01/23/18 03:00 104 16 112/61 (78) 94 01/23/18 02:00 102 16 99/56 (70) 98 01/23/18 01:00 110 16 110/62 (78) 98 01/23/18 00:44 112 18 30 01/23/18 00:00 99.2 109 16 116/62 (80) 95 99.2 01/23/18 00:00 113 01/23/18 00:00 Mechanical Ventilator 01/23/18 00:00 30 01/22/18 23:09 113 18 30 01/22/18 23:00 111 16 114/60 (78) 94 01/22/18 22:00 111 16 112/60 (77) 94 01/22/18 21:13 112 18 30 01/22/18 21:00 115 16 114/62 (79) 94 01/22/18 20:00 30 01/22/18 20:00 Mechanical Ventilator 01/22/18 20:00 99.0 116 16 103/58 (73) 98 99.0 01/22/18 20:00 116 01/22/18 19:27 107 18 30 01/22/18 19:00 99.3 110 18 108/62 (77) 99 99.3 01/22/18 18:00 110 18 113/60 (77) 99 01/22/18 17:04 114 18 30 01/22/18 17:00 94 17 119/73 (88) 99 01/22/18 17:00 113/60 01/22/18 16:00 98.1 119 107/60 (76) 98.1 01/22/18 16:00 30 01/22/18 16:00 Mechanical Ventilator 01/22/18 16:00 109 01/22/18 15:00 105 119/73 (88) 01/22/18 15:00 109 107/60 01/22/18 14:56 112 17 30 Intake and Output 01/22/18 01/23/18 19:00 07:00 Intake Total 1463 ml 2393 ml Output Total 1210 ml 840 ml Balance 253 ml 1553 ml Intake Oral 0 ml 0 ml IV Total 1463 ml 2393 ml Output Urine Total 870 ml 650 ml Gastric Drainage Total 0 ml Drainage Total 340 ml 190 ml # Bowel Movements 4 2 Laboratory Tests 01/23/18 04:00: Arterial Blood pH 7.370, Arterial Blood Partial Pressure CO2 29.9L, Arterial Blood Partial Pressure O2 53.8L, Arterial Blood HCO3 16.6L, Arterial Blood Oxygen Saturation 86.2L, Arterial Blood Base Excess -7.7, Benjie Test Positive 01/23/18 05:00: White Blood Count 18.8H, Red Blood Count 2.48L, Hemoglobin 7.4L, Hematocrit 22.5L, Mean Corpuscular Volume 91, Mean Corpuscular Hemoglobin 30.0, Mean Corpuscular Hemoglobin Concent 33.1, Red Cell Distribution Width 12.1, Platelet Count 94L, Mean Platelet Volume 7.7, Neutrophils (%) (Auto) , Lymphocytes (%) ( Auto) , Monocytes (%) (Auto) , Eosinophils (%) (Auto) , Basophils (%) (Auto) , Differential Total Cells Counted 100, Neutrophils % (Manual) 79H, Lymphocytes % (Manual) 10L, Monocytes % (Manual) 10, Eosinophils % (Manual) 1, Basophils % ( Manual) 0, Band Neutrophils 0, Nucleated Red Blood Cells 1, Platelet Estimate DecreasedL, Platelet Morphology Normal, Hypochromasia 3+, Anisocytosis 1+, Spherocytes 2+, Sodium Level 148H, Potassium Level 2.9L, Chloride Level 119H, Carbon Dioxide Level 19L, Anion Gap 10, Blood Urea Nitrogen 28H, Creatinine 1.6H , Estimat Glomerular Filtration Rate 44.2, Glucose Level 100, Uric Acid 5.5, Calcium Level 7.1L, Phosphorus Level 2.7, Magnesium Level 1.7L, Total Bilirubin 0.6, Gamma Glutamyl Transpeptidase 211H, Aspartate Amino Transf (AST/SGOT) 68H, Alanine Aminotransferase (ALT/SGPT) 288H, Alkaline Phosphatase 143H, Total Creatine Kinase 363H, Pro-B-Type Natriuretic Peptide 1150H, Total Protein 4.6L, Albumin 1.5L, Globulin 3.1, Albumin/Globulin Ratio 0.5L Height (Feet): 5 Height (Inches): 3.00 Weight (Pounds): 184 General Appearance: lethargic EENT: PERRL/EOMI Neck: normal alignment Cardiovascular: normal peripheral pulses Respiratory/Chest: no respiratory distress Abdomen: no mass Isaiah Noriega MD Jan 23, 2018 14:30
--- NOTE | 2018-01-23 14:32 | Cardiology Progress Note ---
Assessment/Plan Status: stable Assessment/Plan (1) Acute on chronic respiratory failure (2) Sepsis (3) Anoxic brain injury (4) Feeding by G-tube (5) Tachycardia (6) S/P exploratory laparotomy, left hemicolectomy Continue respiratory support G tube to suction, feels held Wound care per surgery Replete electrolytes IV stress dose steroids Albumin prn hypotension Wean pressors Hold beta blockers Echo reviewed Continue broad abx Subjective Cardiovascular: Reports: no symptoms Respiratory: Reports: no symptoms Gastrointestinal/Abdominal: Reports: no symptoms Genitourinary: Reports: no symptoms Subjective Patient improving, WBC coming down, pressor requirements less New ostomy pink, drain intact Vitals stable PICC line placed Serosanguineous fluid noted on both G tube on LIWS, no output Objective Last 24 Hour Vital Signs Date Time Temp Pulse Resp B/P (MAP) Pulse Ox O2 Delivery O2 Flow Rate FiO2 01/23/18 13:09 86 19 30 01/23/18 12:00 Mechanical Ventilator 01/23/18 12:00 30 01/23/18 12:00 98.8 74 17 120/61 (80) 100 98.8 01/23/18 11:40 93 01/23/18 11:00 92 19 127/70 (89) 99 01/23/18 10:38 92 15 30 01/23/18 10:00 92 18 111/53 (72) 99 01/23/18 09:02 96 17 30 01/23/18 09:00 98 19 120/61 (80) 99 01/23/18 08:00 30 01/23/18 08:00 Mechanical Ventilator 01/23/18 08:00 98.5 97 19 110/56 (74) 100 98.5 01/23/18 07:34 92 01/23/18 07:00 95 19 122/63 (82) 100 01/23/18 06:35 102 18 30 01/23/18 06:00 102 19 119/59 (79) 100 01/23/18 05:07 99 21 30 01/23/18 05:00 101 18 115/57 (76) 100 01/23/18 04:00 99.0 106 16 112/60 (77) 94 99.0 01/23/18 04:00 Mechanical Ventilator 01/23/18 04:00 102 01/23/18 04:00 30 01/23/18 03:10 112 21 30 01/23/18 03:09 97 21 Mechanical Ventilator 100 01/23/18 03:00 104 16 112/61 (78) 94 01/23/18 02:00 102 16 99/56 (70) 98 01/23/18 01:00 110 16 110/62 (78) 98 01/23/18 00:44 112 18 30 01/23/18 00:00 99.2 109 16 116/62 (80) 95 99.2 01/23/18 00:00 113 01/23/18 00:00 Mechanical Ventilator 01/23/18 00:00 30 01/22/18 23:09 113 18 30 01/22/18 23:00 111 16 114/60 (78) 94 01/22/18 22:00 111 16 112/60 (77) 94 01/22/18 21:13 112 18 30 01/22/18 21:00 115 16 114/62 (79) 94 01/22/18 20:00 30 01/22/18 20:00 Mechanical Ventilator 01/22/18 20:00 99.0 116 16 103/58 (73) 98 99.0 01/22/18 20:00 116 01/22/18 19:27 107 18 30 01/22/18 19:00 99.3 110 18 108/62 (77) 99 99.3 01/22/18 18:00 110 18 113/60 (77) 99 01/22/18 17:04 114 18 30 01/22/18 17:00 94 17 119/73 (88) 99 01/22/18 17:00 113/60 01/22/18 16:00 98.1 119 107/60 (76) 98.1 01/22/18 16:00 30 01/22/18 16:00 Mechanical Ventilator 01/22/18 16:00 109 01/22/18 15:00 105 119/73 (88) 01/22/18 15:00 109 107/60 01/22/18 14:56 112 17 30 General Appearance: on vent EENT: PERRL/EOMI Neck: non-tender Rhythm: NSR Cardiovascular: normal peripheral pulses Respiratory/Chest: chest wall non-tender Extremities: normal range of motion 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 Intake and Output 01/22/18 01/23/18 19:00 07:00 Intake Total 1463 ml 2393 ml Output Total 1210 ml 840 ml Balance 253 ml 1553 ml Intake Oral 0 ml 0 ml IV Total 1463 ml 2393 ml Output Urine Total 870 ml 650 ml Gastric Drainage Total 0 ml Drainage Total 340 ml 190 ml # Bowel Movements 4 2 Laboratory Tests Test 01/23/18 04:00 01/23/18 05:00 Arterial Blood pH 7.370 (7.350-7.450) Arterial Blood Partial Pressure CO2 29.9 mmHg (35.0-45.0) L Arterial Blood Partial Pressure O2 53.8 mmHg (75.0-100.0) L Arterial Blood HCO3 16.6 mmol/L (22.0-26.0) L Arterial Blood Oxygen Saturation 86.2 % (92.0-98.0) L Arterial Blood Base Excess -7.7 Benjie Test Positive White Blood Count 18.8 K/UL (4.8-10.8) H Red Blood Count 2.48 M/UL (4.20-5.40) L Hemoglobin 7.4 G/DL (12.0-16.0) L Hematocrit 22.5 % (37.0-47.0) L Mean Corpuscular Volume 91 FL (80-99) Mean Corpuscular Hemoglobin 30.0 PG (27.0-31.0) Mean Corpuscular Hemoglobin Concent 33.1 G/DL (32.0-36.0) Red Cell Distribution Width 12.1 % (11.6-14.8) Platelet Count 94 K/UL (150-450) L Mean Platelet Volume 7.7 FL (6.5-10.1) Neutrophils (%) (Auto) % (45.0-75.0) Lymphocytes (%) (Auto) % (20.0-45.0) Monocytes (%) (Auto) % (1.0-10.0) Eosinophils (%) (Auto) % (0.0-3.0) Basophils (%) (Auto) % (0.0-2.0) Differential Total Cells Counted 100 Neutrophils % (Manual) 79 % (45-75) H Lymphocytes % (Manual) 10 % (20-45) L Monocytes % (Manual) 10 % (1-10) Eosinophils % (Manual) 1 % (0-3) Basophils % (Manual) 0 % (0-2) Band Neutrophils 0 % (0-8) Nucleated Red Blood Cells 1 /100 WBC Platelet Estimate Decreased L Platelet Morphology Normal Hypochromasia 3+ Anisocytosis 1+ Spherocytes 2+ Sodium Level 148 MMOL/L (136-145) H Potassium Level 2.9 MMOL/L (3.5-5.1) L Chloride Level 119 MMOL/L (98-107) H Carbon Dioxide Level 19 MMOL/L (21-32) L Anion Gap 10 mmol/L (5-15) Blood Urea Nitrogen 28 mg/dL (7-18) H Creatinine 1.6 MG/DL (0.55-1.30) H Estimat Glomerular Filtration Rate 44.2 mL/min (>60) Glucose Level 100 MG/DL (74-106) Uric Acid 5.5 MG/DL (2.6-7.2) Calcium Level 7.1 MG/DL (8.5-10.1) L Phosphorus Level 2.7 MG/DL (2.5-4.9) Magnesium Level 1.7 MG/DL (1.8-2.4) L Total Bilirubin 0.6 MG/DL (0.2-1.0) Gamma Glutamyl Transpeptidase 211 U/L (5-85) H Aspartate Amino Transf (AST/SGOT) 68 U/L (15-37) H Alanine Aminotransferase (ALT/SGPT) 288 U/L (12-78) H Alkaline Phosphatase 143 U/L (46-116) H Total Creatine Kinase 363 U/L (26-308) H Pro-B-Type Natriuretic Peptide 1150 pg/mL (0-125) H Total Protein 4.6 G/DL (6.4-8.2) L Albumin 1.5 G/DL (3.4-5.0) L Globulin 3.1 g/dL Albumin/Globulin Ratio 0.5 (1.0-2.7) L Rob Cote M.D. Jan 23, 2018 14:32
[2018-01-23] MEDS: Phenylephrine 50 MG in D5W 245 ML IV SCH (15:00)
--- NOTE | 2018-01-23 18:53 | General Surgery Progress Note ---
General Surgery-Progress Note Subjective Procedure Performed planned re-exploration of abdomen, sigmoid colectomy, takedown of splenic flexure, left hemicolectomy, creation of transverse colostomy, abdominal closure Objective Last 24 Hour Vital Signs Date Time Temp Pulse Resp B/P (MAP) Pulse Ox O2 Delivery O2 Flow Rate FiO2 01/23/18 18:00 79 16 121/70 (87) 99 01/23/18 17:20 73 19 30 01/23/18 17:00 83 16 125/69 (87) 99 01/23/18 16:00 98.6 85 19 114/66 (82) 99 98.6 01/23/18 16:00 87 01/23/18 16:00 Mechanical Ventilator 01/23/18 16:00 30 01/23/18 15:10 86 18 30 01/23/18 15:00 92 18 106/70 (82) 99 01/23/18 14:00 87 19 112/59 (76) 99 01/23/18 13:09 86 19 30 01/23/18 13:00 80 18 116/67 (83) 99 01/23/18 12:00 Mechanical Ventilator 01/23/18 12:00 30 01/23/18 12:00 98.8 74 17 120/61 (80) 100 98.8 01/23/18 11:40 93 01/23/18 11:00 92 19 127/70 (89) 99 01/23/18 10:38 92 15 30 01/23/18 10:00 92 18 111/53 (72) 99 01/23/18 09:02 96 17 30 01/23/18 09:00 98 19 120/61 (80) 99 01/23/18 08:00 30 01/23/18 08:00 Mechanical Ventilator 01/23/18 08:00 98.5 97 19 110/56 (74) 100 98.5 01/23/18 07:34 92 01/23/18 07:00 95 19 122/63 (82) 100 01/23/18 06:35 102 18 30 01/23/18 06:00 102 19 119/59 (79) 100 01/23/18 05:07 99 21 30 01/23/18 05:00 101 18 115/57 (76) 100 01/23/18 04:00 99.0 106 16 112/60 (77) 94 99.0 01/23/18 04:00 Mechanical Ventilator 01/23/18 04:00 102 01/23/18 04:00 30 01/23/18 03:10 112 21 30 01/23/18 03:09 97 21 Mechanical Ventilator 100 01/23/18 03:00 104 16 112/61 (78) 94 01/23/18 02:00 102 16 99/56 (70) 98 01/23/18 01:00 110 16 110/62 (78) 98 01/23/18 00:44 112 18 30 01/23/18 00:00 99.2 109 16 116/62 (80) 95 99.2 01/23/18 00:00 113 01/23/18 00:00 Mechanical Ventilator 01/23/18 00:00 30 01/22/18 23:09 113 18 30 01/22/18 23:00 111 16 114/60 (78) 94 01/22/18 22:00 111 16 112/60 (77) 94 01/22/18 21:13 112 18 30 01/22/18 21:00 115 16 114/62 (79) 94 01/22/18 20:00 30 01/22/18 20:00 Mechanical Ventilator 01/22/18 20:00 99.0 116 16 103/58 (73) 98 99.0 01/22/18 20:00 116 01/22/18 19:27 107 18 30 01/22/18 19:00 99.3 110 18 108/62 (77) 99 99.3 I&O Intake and Output 01/22/18 01/23/18 19:00 07:00 Intake Total 1463 ml 2393 ml Output Total 1210 ml 840 ml Balance 253 ml 1553 ml Intake Oral 0 ml 0 ml IV Total 1463 ml 2393 ml Output Urine Total 870 ml 650 ml Gastric Drainage Total 0 ml Drainage Total 340 ml 190 ml # Bowel Movements 4 2 Laboratory Tests Test 01/23/18 04:00 01/23/18 05:00 Arterial Blood pH 7.370 (7.350-7.450) Arterial Blood Partial Pressure CO2 29.9 mmHg (35.0-45.0) L Arterial Blood Partial Pressure O2 53.8 mmHg (75.0-100.0) L Arterial Blood HCO3 16.6 mmol/L (22.0-26.0) L Arterial Blood Oxygen Saturation 86.2 % (92.0-98.0) L Arterial Blood Base Excess -7.7 Benjie Test Positive White Blood Count 18.8 K/UL (4.8-10.8) H Red Blood Count 2.48 M/UL (4.20-5.40) L Hemoglobin 7.4 G/DL (12.0-16.0) L Hematocrit 22.5 % (37.0-47.0) L Mean Corpuscular Volume 91 FL (80-99) Mean Corpuscular Hemoglobin 30.0 PG (27.0-31.0) Mean Corpuscular Hemoglobin Concent 33.1 G/DL (32.0-36.0) Red Cell Distribution Width 12.1 % (11.6-14.8) Platelet Count 94 K/UL (150-450) L Mean Platelet Volume 7.7 FL (6.5-10.1) Neutrophils (%) (Auto) % (45.0-75.0) Lymphocytes (%) (Auto) % (20.0-45.0) Monocytes (%) (Auto) % (1.0-10.0) Eosinophils (%) (Auto) % (0.0-3.0) Basophils (%) (Auto) % (0.0-2.0) Differential Total Cells Counted 100 Neutrophils % (Manual) 79 % (45-75) H Lymphocytes % (Manual) 10 % (20-45) L Monocytes % (Manual) 10 % (1-10) Eosinophils % (Manual) 1 % (0-3) Basophils % (Manual) 0 % (0-2) Band Neutrophils 0 % (0-8) Nucleated Red Blood Cells 1 /100 WBC Platelet Estimate Decreased L Platelet Morphology Normal Hypochromasia 3+ Anisocytosis 1+ Spherocytes 2+ Sodium Level 148 MMOL/L (136-145) H Potassium Level 2.9 MMOL/L (3.5-5.1) L Chloride Level 119 MMOL/L (98-107) H Carbon Dioxide Level 19 MMOL/L (21-32) L Anion Gap 10 mmol/L (5-15) Blood Urea Nitrogen 28 mg/dL (7-18) H Creatinine 1.6 MG/DL (0.55-1.30) H Estimat Glomerular Filtration Rate 44.2 mL/min (>60) Glucose Level 100 MG/DL (74-106) Uric Acid 5.5 MG/DL (2.6-7.2) Calcium Level 7.1 MG/DL (8.5-10.1) L Phosphorus Level 2.7 MG/DL (2.5-4.9) Magnesium Level 1.7 MG/DL (1.8-2.4) L Total Bilirubin 0.6 MG/DL (0.2-1.0) Gamma Glutamyl Transpeptidase 211 U/L (5-85) H Aspartate Amino Transf (AST/SGOT) 68 U/L (15-37) H Alanine Aminotransferase (ALT/SGPT) 288 U/L (12-78) H Alkaline Phosphatase 143 U/L (46-116) H Total Creatine Kinase 363 U/L (26-308) H Pro-B-Type Natriuretic Peptide 1150 pg/mL (0-125) H Total Protein 4.6 G/DL (6.4-8.2) L Albumin 1.5 G/DL (3.4-5.0) L Globulin 3.1 g/dL Albumin/Globulin Ratio 0.5 (1.0-2.7) L Assessment Post-op Diagnosis s/p exploratory laparotomy, abdominal washout, open abdomen Plan Problems: (1) Severe sepsis Assessment & Plan: 37F severe sepsis. etiology unknown. labs as above. radiology as above. arrested on arrival in ED and currently in ICU. CXR and KUB reviewed. question of possible free air. on KUB very stool filled bowel with dilated bowels On exam with incarcerated umbilical hernia, cannot determine if chronic, acute, bowel or fat. was able to reduce at bedside fortunately. Need CT scan but unfortunately too unstable for examination Warrants diagnostic laparoscopy vs exploration but given recent events, current condition, and history would not be safe and needs resuscitation first. would unlikely tolerate surgery. needs to respond to resuscitation first. likely very dehydrated given labs. s/p ex lap with open abdomen s/p re-ex lap 48hrs after for washout, bowel resection, ostomy, abd closure recovering labs reviewed HD stability improving drains with serous output ostomy viable with good output now -okay to start feeds or meds through g tube -IV fluids -IV Abx -trend labs -rock -drain care and management -packing and dressings to midline wound BID -ostomy care/bag will follow closely. unfortunately very poor prognosis. Marshall Ferguson Jan 23, 2018 18:53
[2018-01-23] MEDS: Dyna-Hex 2% Top Sol 2oz TOPIC SCH (19:36)
[2018-01-23] MEDS: Micafungin 100 MG in NS 110 ML IVPB SCH (19:37)
[2018-01-24] VITALS (24 sets, daily range): BP systolic 109–133; BP diastolic 53–74
[2018-01-24 04:51] LABS: HEMATOCRIT 23.8 % (37.0-47.0); HEMOGLOBIN 7.9 G/DL (12.0-16.0); MEAN CORPUSCULAR VOLUME 91 FL (80-99); PLATELET COUNT 132 K/UL (150-450); RED BLOOD COUNT 2.62 M/UL (4.20-5.40); RED CELL DISTRIBUTION WIDTH 12.1 % (11.6-14.8)
[2018-01-24 05:03] LABS: WHITE BLOOD COUNT 24.7 K/UL (4.8-10.8)
[2018-01-24 05:11] LABS: ALANINE AMINOTRANSFERASE 197 U/L (12-78); ALBUMIN 1.5 G/DL (3.4-5.0); ALBUMIN/GLOBULIN RATIO 0.4 (1.0-2.7); ALKALINE PHOSPHATASE 143 U/L (46-116); ANION GAP 8 mmol/L (5-15); ASPARTATE AMINO TRANSFERASE 33 U/L (15-37); BILIRUBIN,TOTAL 0.4 MG/DL (0.2-1.0); BLOOD UREA NITROGEN 19 mg/dL (7-18); CALCIUM 6.8 MG/DL (8.5-10.1); CARBON DIOXIDE 19 MMOL/L (21-32); CHLORIDE 117 MMOL/L (98-107); CREATINE KINASE 172 U/L (26-308); CREATININE 1.5 MG/DL (0.55-1.30); POTASSIUM 3.3 MMOL/L (3.5-5.1); SODIUM 143 MMOL/L (136-145)
[2018-01-24] MEDS: Hydrocortisone 100mg Inj IV SCH ×3 (05:20→21:36)
[2018-01-24] MEDS: D5 1/2NS w/KCl 20mEq 1,000 ML IV SCH ×2 (05:20→15:03)
[2018-01-24 05:26] LABS: PHOSPHORUS 2.6 MG/DL (2.5-4.9)
[2018-01-24] MEDS: Meropenem 1 GM in NS 55 ML IVPB SCH ×2 (07:48→19:56)
[2018-01-24] MEDS: levETIRAcetam 1,000mg/NS100ml 100 ML IVPB SCH ×2 (08:46→21:25)
[2018-01-24] MEDS: Pantoprazole Inj IV SCH ×2 (08:46→21:26)
[2018-01-24] MEDS: NS IVPB SCH ×2 (09:02→21:26)
[2018-01-24] MEDS: PHENYTOIN IVPB SCH ×2 (09:02→21:26)
--- NOTE | 2018-01-24 09:51 | Diagnostic Imaging Report ---
EXAM: XR Chest, 1 View CLINICAL HISTORY: DYSPNEA TECHNIQUE: Frontal view of the chest. COMPARISON: 01/23/18. FINDINGS: There are redemonstrated basilar opacities, likely a combination of pleural fluid and atelectasis/consolidation. This appears increased on the left, though differences in patient positioning could cause the pleural fluid to layer more superiorly. There is a new air lucency along the left heart border. Possibility of pneumomediastinum. Question whether the tracheostomy is appropriately sealed. Its tip appears normally positioned. Right arm PICC again noted, tip appropriately positioned near the cavoatrial junction. IMPRESSION: Question of new pneumomediastinum along the left heart margin. Question whether the tracheostomy is appropriately sealed. Basilar opacities again noted, increased on the left. Some of this could be due to differences in positioning, but question increasing pleural fluid and associated atelectasis/consolidation. Right-sided opacity is stable.
[2018-01-24] MEDS: Heparin 5000 units/ml inj SUBQ SCH ×2 (10:05→21:28)
[2018-01-24] MEDS: Bactrim 20ml in D5W 550ml IV SCH (10:47)
[2018-01-24] MEDS ORDERED: Tubing IV Secondary IV ONE ×3 (10:52→11:02)
[2018-01-24] MEDS ORDERED: NS 275ml ONE ×3 (10:52→11:02)
[2018-01-24] MEDS ORDERED: NS 500ML ONE (11:02)
[2018-01-24] MEDS ORDERED: D5NS 1000ml IV ONE (11:02)
--- NOTE | 2018-01-24 11:10 | Nephrology Progress Note ---
Assessment/Plan Problem List: (1) Acute on chronic respiratory failure Assessment: ATN (2) Sepsis Assessment: shock (3) Seizure disorder (4) Anemia Assessment: worsened Assessment Septic shock now off pressors, hence Oliguria and acute renal failure s/p 2 OR visits , for peritonitis Cr lower Others: (1) Acute on chronic respiratory failure (2) Sepsis (3) Anoxic brain injury (4) Feeding by G-tube (5) Tachycardia Plan K supplement and Mag supp Hydrate, change IV to hypotonic favor transfusion for low H&H albumin bollous hydrocortisone Antibiotics monitor renal parameters Per ID Pulm Surg Subjective ROS Limited/Unobtainable: Yes Objective Objective Last 24 Hour Vital Signs Date Time Temp Pulse Resp B/P (MAP) Pulse Ox O2 Delivery O2 Flow Rate FiO2 01/24/18 10:00 96 19 112/64 (80) 100 01/24/18 09:20 74 18 30 01/24/18 09:00 98 21 117/58 (77) 100 01/24/18 08:00 98.5 99 19 114/62 (79) 100 98.5 99 01/24/18 08:00 30 01/24/18 08:00 80 01/24/18 08:00 Mechanical Ventilator 01/24/18 07:00 79 19 115/62 (79) 99 85 01/24/18 06:40 81 22 30 01/24/18 06:00 86 19 127/62 (83) 99 87 01/24/18 05:28 99 19 30 01/24/18 05:00 89 19 118/63 (81) 99 87 01/24/18 04:00 84 01/24/18 04:00 97.3 89 18 118/63 (81) 99 97.3 90 01/24/18 04:00 Mechanical Ventilator 01/24/18 04:00 30 01/24/18 03:31 99 19 30 01/24/18 03:00 84 20 126/59 (81) 99 90 01/24/18 02:00 82 22 129/58 (81) 99 90 01/24/18 01:00 84 20 127/59 (81) 99 90 01/24/18 00:56 80 19 30 01/24/18 00:00 98.3 84 20 133/70 (91) 99 98.3 90 01/24/18 00:00 30 01/24/18 00:00 84 7/8/18 00:00 Mechanical Ventilator 01/23/18 23:00 90 20 116/67 (83) 99 01/23/18 22:51 88 19 30 01/23/18 22:00 89 19 122/63 (82) 99 01/23/18 21:05 100 19 30 01/23/18 21:00 91 20 120/53 (75) 100 01/23/18 20:00 98.3 92 16 119/59 (79) 100 98.3 01/23/18 20:00 30 01/23/18 20:00 86 01/23/18 20:00 Mechanical Ventilator 01/23/18 19:02 88 19 30 01/23/18 19:00 75 16 122/88 (99) 99 01/23/18 18:00 79 16 121/70 (87) 99 01/23/18 17:20 73 19 30 01/23/18 17:00 83 16 125/69 (87) 99 01/23/18 16:00 98.6 85 19 114/66 (82) 99 98.6 01/23/18 16:00 87 01/23/18 16:00 Mechanical Ventilator 01/23/18 16:00 30 01/23/18 15:10 86 18 30 01/23/18 15:00 92 18 106/70 (82) 99 01/23/18 14:00 87 19 112/59 (76) 99 01/23/18 13:09 86 19 30 01/23/18 13:00 80 18 116/67 (83) 99 01/23/18 12:00 Mechanical Ventilator 01/23/18 12:00 30 01/23/18 12:00 98.8 74 17 120/61 (80) 100 98.8 01/23/18 11:40 93 Intake and Output 01/23/18 01/24/18 19:00 07:00 Intake Total 2026 ml 2103 ml Output Total 1615 ml 1210 ml Balance 411 ml 893 ml Intake Oral 0 ml 0 ml IV Total 2026 ml 2093 ml Tube Feeding 10 ml Output Urine Total 970 ml 670 ml Stool Total 400 ml 200 ml Drainage Total 245 ml 340 ml # Bowel Movements 3 Laboratory Tests 01/24/18 04:30: White Blood Count 24.7*H, Red Blood Count 2.62L, Hemoglobin 7.9L, Hematocrit 23.8L, Mean Corpuscular Volume 91, Mean Corpuscular Hemoglobin 30.3, Mean Corpuscular Hemoglobin Concent 33.4, Red Cell Distribution Width 12.1, Platelet Count 132L, Mean Platelet Volume 6.4L, Neutrophils (%) (Auto) , Lymphocytes (%) (Auto) , Monocytes (%) (Auto) , Eosinophils (%) (Auto) , Basophils (%) (Auto) , Differential Total Cells Counted 100, Neutrophils % (Manual) 77H, Lymphocytes % (Manual) 10L, Monocytes % (Manual) 7, Eosinophils % (Manual) 0, Basophils % ( Manual) 0, Band Neutrophils 6, Platelet Estimate DecreasedL, Platelet Morphology Normal, Hypochromasia 1+, PT Mixing Study [Pending], Mix PT Incubation Time [Pending], Mix PT Patient/Normal 1:1 [Pending], Sodium Level 143 , Potassium Level 3.3L, Chloride Level 117H, Carbon Dioxide Level 19L, Anion Gap 8, Blood Urea Nitrogen 19H, Creatinine 1.5H, Estimat Glomerular Filtration Rate 47.6, Glucose Level 92, Calcium Level 6.8L, Phosphorus Level 2.6, Magnesium Level 1.6L, Total Bilirubin 0.4, Aspartate Amino Transf (AST/SGOT) 33 , Alanine Aminotransferase (ALT/SGPT) 197H, Alkaline Phosphatase 143H, Total Creatine Kinase 172, Total Protein 5.0L, Albumin 1.5L, Globulin 3.5, Albumin/ Globulin Ratio 0.4L Height (Feet): 5 Height (Inches): 3.00 Weight (Pounds): 184 General Appearance: no apparent distress Cardiovascular: tachycardia Respiratory/Chest: decreased breath sounds Abdomen: distended Objective no change LORRIE PERAZA Jan 24, 2018 11:10
--- NOTE | 2018-01-24 11:58 | General Progress Note ---
Assessment/Plan Status: not improved, unchanged Assessment/Plan #. Leukocytosis, likely due to infection, peritonitis, now better --> The patient with lactic acidosis. Lactic acid 7.4. --> Currently on pressors. Rule out infectious etiology. --> On broad-spectrum antibiotics and antifungals. --> Closely monitor for improvement. #. Anemia currently due to blood loss from surgery in addition to hemodilution --> cr goal is >7 --> jak2 level pending under serology as she had erythroytosis on persentation --> anemia w/u has been reviewed #. Coagulopathy with inr 1.6 likely due to malnutrition v dic --> obtain a mixing study #. Septic shock, closely monitor, --> on antibiotics, broad spectrum. #. Seizure disorder, currently on antiseizure medication. #. Respiratory failure, status post trach and vent. #. Dysphagia, status post gastrostomy tube. Subjective Date patient seen: Jan 24, 2018 Hematologic/Lymphatic: Reports: anemia Allergies: Coded Allergies: No Known Allergies (Unverified , 01/18/15) All Systems: reviewed and negative except above Subjective Pt remains in ICU and comatose. No acute events. No new orders. Pt remains in stable but critical condition. Elevated WBC noted. Objective Last 24 Hour Vital Signs Date Time Temp Pulse Resp B/P (MAP) Pulse Ox O2 Delivery O2 Flow Rate FiO2 01/24/18 11:00 99 12 109/53 (71) 100 01/24/18 10:00 96 19 112/64 (80) 100 01/24/18 09:20 74 18 30 01/24/18 09:00 98 21 117/58 (77) 100 01/24/18 08:00 98.5 99 19 114/62 (79) 100 98.5 99 01/24/18 08:00 30 01/24/18 08:00 80 01/24/18 08:00 Mechanical Ventilator 01/24/18 07:00 79 19 115/62 (79) 99 85 01/24/18 06:40 81 22 30 01/24/18 06:00 86 19 127/62 (83) 99 87 01/24/18 05:28 99 19 30 01/24/18 05:00 89 19 118/63 (81) 99 87 01/24/18 04:00 84 01/24/18 04:00 97.3 89 18 118/63 (81) 99 97.3 90 01/24/18 04:00 Mechanical Ventilator 01/24/18 04:00 30 01/24/18 03:31 99 19 30 01/24/18 03:00 84 20 126/59 (81) 99 90 01/24/18 02:00 82 22 129/58 (81) 99 90 01/24/18 01:00 84 20 127/59 (81) 99 90 01/24/18 00:56 80 19 30 01/24/18 00:00 98.3 84 20 133/70 (91) 99 98.3 90 01/24/18 00:00 30 01/24/18 00:00 84 01/24/18 00:00 Mechanical Ventilator 01/23/18 23:00 90 20 116/67 (83) 99 01/23/18 22:51 88 19 30 01/23/18 22:00 89 19 122/63 (82) 99 01/23/18 21:05 100 19 30 01/23/18 21:00 91 20 120/53 (75) 100 01/23/18 20:00 98.3 92 16 119/59 (79) 100 98.3 01/23/18 20:00 30 01/23/18 20:00 86 01/23/18 20:00 Mechanical Ventilator 01/23/18 19:02 88 19 30 01/23/18 19:00 75 16 122/88 (99) 99 01/23/18 18:00 79 16 121/70 (87) 99 01/23/18 17:20 73 19 30 01/23/18 17:00 83 16 125/69 (87) 99 01/23/18 16:00 98.6 85 19 114/66 (82) 99 98.6 01/23/18 16:00 87 01/23/18 16:00 Mechanical Ventilator 01/23/18 16:00 30 01/23/18 15:10 86 18 30 01/23/18 15:00 92 18 106/70 (82) 99 01/23/18 14:00 87 19 112/59 (76) 99 01/23/18 13:09 86 19 30 01/23/18 13:00 80 18 116/67 (83) 99 01/23/18 12:00 Mechanical Ventilator 01/23/18 12:00 30 7/7/18 12:00 98.8 74 17 120/61 (80) 100 98.8 Intake and Output 01/23/18 01/24/18 19:00 07:00 Intake Total 2026 ml 2103 ml Output Total 1615 ml 1210 ml Balance 411 ml 893 ml Intake Oral 0 ml 0 ml IV Total 2026 ml 2093 ml Tube Feeding 10 ml Output Urine Total 970 ml 670 ml Stool Total 400 ml 200 ml Drainage Total 245 ml 340 ml # Bowel Movements 3 Laboratory Tests 01/24/18 04:30: White Blood Count 24.7*H, Red Blood Count 2.62L, Hemoglobin 7.9L, Hematocrit 23.8L, Mean Corpuscular Volume 91, Mean Corpuscular Hemoglobin 30.3, Mean Corpuscular Hemoglobin Concent 33.4, Red Cell Distribution Width 12.1, Platelet Count 132L, Mean Platelet Volume 6.4L, Neutrophils (%) (Auto) , Lymphocytes (%) (Auto) , Monocytes (%) (Auto) , Eosinophils (%) (Auto) , Basophils (%) (Auto) , Differential Total Cells Counted 100, Neutrophils % (Manual) 77H, Lymphocytes % (Manual) 10L, Monocytes % (Manual) 7, Eosinophils % (Manual) 0, Basophils % ( Manual) 0, Band Neutrophils 6, Platelet Estimate DecreasedL, Platelet Morphology Normal, Hypochromasia 1+, PT Mixing Study [Pending], Mix PT Incubation Time [Pending], Mix PT Patient/Normal 1:1 [Pending], Sodium Level 143 , Potassium Level 3.3L, Chloride Level 117H, Carbon Dioxide Level 19L, Anion Gap 8, Blood Urea Nitrogen 19H, Creatinine 1.5H, Estimat Glomerular Filtration Rate 47.6, Glucose Level 92, Calcium Level 6.8L, Phosphorus Level 2.6, Magnesium Level 1.6L, Total Bilirubin 0.4, Aspartate Amino Transf (AST/SGOT) 33 , Alanine Aminotransferase (ALT/SGPT) 197H, Alkaline Phosphatase 143H, Total Creatine Kinase 172, Total Protein 5.0L, Albumin 1.5L, Globulin 3.5, Albumin/ Globulin Ratio 0.4L Height (Feet): 5 Height (Inches): 3.00 Weight (Pounds): 184 General Appearance: lethargic, confused Neck: normal alignment Cardiovascular: tachycardia Respiratory/Chest: no respiratory distress Abdomen: soft Isaiah Noriega MD Jan 24, 2018 11:58
[2018-01-24] MEDS: Vancomycin 1gm/D5W 275ml IVPB SCH ×2 (13:02)
--- NOTE | 2018-01-24 13:07 | General Surgery Progress Note ---
General Surgery-Progress Note Subjective Procedure Performed planned re-exploration of abdomen, sigmoid colectomy, takedown of splenic flexure, left hemicolectomy, creation of transverse colostomy, abdominal closure Additional Comments exam improved. renal function improved. leukocytosis worse Objective Last 24 Hour Vital Signs Date Time Temp Pulse Resp B/P (MAP) Pulse Ox O2 Delivery O2 Flow Rate FiO2 01/24/18 12:49 100 24 30 01/24/18 12:00 98.6 101 24 119/65 (83) 100 98.6 01/24/18 12:00 Mechanical Ventilator 01/24/18 12:00 30 01/24/18 11:11 103 23 30 01/24/18 11:00 99 12 109/53 (71) 100 01/24/18 10:00 96 19 112/64 (80) 100 01/24/18 09:20 74 18 30 01/24/18 09:00 98 21 117/58 (77) 100 01/24/18 08:00 98.5 99 19 114/62 (79) 100 98.5 99 01/24/18 08:00 30 01/24/18 08:00 80 01/24/18 08:00 Mechanical Ventilator 01/24/18 07:00 79 19 115/62 (79) 99 85 01/24/18 06:40 81 22 30 01/24/18 06:00 86 19 127/62 (83) 99 87 01/24/18 05:28 99 19 30 01/24/18 05:00 89 19 118/63 (81) 99 87 01/24/18 04:00 84 01/24/18 04:00 97.3 89 18 118/63 (81) 99 97.3 90 01/24/18 04:00 Mechanical Ventilator 01/24/18 04:00 30 01/24/18 03:31 99 19 30 01/24/18 03:00 84 20 126/59 (81) 99 90 01/24/18 02:00 82 22 129/58 (81) 99 90 01/24/18 01:00 84 20 127/59 (81) 99 90 01/24/18 00:56 80 19 30 01/24/18 00:00 98.3 84 20 133/70 (91) 99 98.3 90 01/24/18 00:00 30 01/24/18 00:00 84 01/24/18 00:00 Mechanical Ventilator 01/23/18 23:00 90 20 116/67 (83) 99 01/23/18 22:51 88 19 30 01/23/18 22:00 89 19 122/63 (82) 99 01/23/18 21:05 100 19 30 01/23/18 21:00 91 20 120/53 (75) 100 01/23/18 20:00 98.3 92 16 119/59 (79) 100 98.3 01/23/18 20:00 30 01/23/18 20:00 86 01/23/18 20:00 Mechanical Ventilator 01/23/18 19:02 88 19 30 01/23/18 19:00 75 16 122/88 (99) 99 01/23/18 18:00 79 16 121/70 (87) 99 01/23/18 17:20 73 19 30 01/23/18 17:00 83 16 125/69 (87) 99 01/23/18 16:00 98.6 85 19 114/66 (82) 99 98.6 01/23/18 16:00 87 01/23/18 16:00 Mechanical Ventilator 01/23/18 16:00 30 01/23/18 15:10 86 18 30 01/23/18 15:00 92 18 106/70 (82) 99 01/23/18 14:00 87 19 112/59 (76) 99 01/23/18 13:09 86 19 30 I&O Intake and Output 01/23/18 01/24/18 19:00 07:00 Intake Total 2026 ml 2103 ml Output Total 1615 ml 1210 ml Balance 411 ml 893 ml Intake Oral 0 ml 0 ml IV Total 2026 ml 2093 ml Tube Feeding 10 ml Output Urine Total 970 ml 670 ml Stool Total 400 ml 200 ml Drainage Total 245 ml 340 ml # Bowel Movements 3 Dressing: saturated Wound: clean Drains: alec Cardiovascular: RSR Respiratory: other - vent Abdomen: soft, distended, other - ostomy with output, drains serous, wound clean. Laboratory Tests Test 01/24/18 04:30 01/24/18 11:55 White Blood Count 24.7 K/UL (4.8-10.8) *H Red Blood Count 2.62 M/UL (4.20-5.40) L Hemoglobin 7.9 G/DL (12.0-16.0) L Hematocrit 23.8 % (37.0-47.0) L Mean Corpuscular Volume 91 FL (80-99) Mean Corpuscular Hemoglobin 30.3 PG (27.0-31.0) Mean Corpuscular Hemoglobin Concent 33.4 G/DL (32.0-36.0) Red Cell Distribution Width 12.1 % (11.6-14.8) Platelet Count 132 K/UL (150-450) L Mean Platelet Volume 6.4 FL (6.5-10.1) L Neutrophils (%) (Auto) % (45.0-75.0) Lymphocytes (%) (Auto) % (20.0-45.0) Monocytes (%) (Auto) % (1.0-10.0) Eosinophils (%) (Auto) % (0.0-3.0) Basophils (%) (Auto) % (0.0-2.0) Differential Total Cells Counted 100 Neutrophils % (Manual) 77 % (45-75) H Lymphocytes % (Manual) 10 % (20-45) L Monocytes % (Manual) 7 % (1-10) Eosinophils % (Manual) 0 % (0-3) Basophils % (Manual) 0 % (0-2) Band Neutrophils 6 % (0-8) Platelet Estimate Decreased L Platelet Morphology Normal Hypochromasia 1+ PT Mixing Study Pending Mix PT Incubation Time Pending Mix PT Patient/Normal 1:1 Pending Sodium Level 143 MMOL/L (136-145) Potassium Level 3.3 MMOL/L (3.5-5.1) L Chloride Level 117 MMOL/L (98-107) H Carbon Dioxide Level 19 MMOL/L (21-32) L Anion Gap 8 mmol/L (5-15) Blood Urea Nitrogen 19 mg/dL (7-18) H Creatinine 1.5 MG/DL (0.55-1.30) H Estimat Glomerular Filtration Rate 47.6 mL/min (>60) Glucose Level 92 MG/DL (74-106) Calcium Level 6.8 MG/DL (8.5-10.1) L Phosphorus Level 2.6 MG/DL (2.5-4.9) Magnesium Level 1.6 MG/DL (1.8-2.4) L Total Bilirubin 0.4 MG/DL (0.2-1.0) Aspartate Amino Transf (AST/SGOT) 33 U/L (15-37) Alanine Aminotransferase (ALT/SGPT) 197 U/L (12-78) H Alkaline Phosphatase 143 U/L (46-116) H Total Creatine Kinase 172 U/L (26-308) Total Protein 5.0 G/DL (6.4-8.2) L Albumin 1.5 G/DL (3.4-5.0) L Globulin 3.5 g/dL Albumin/Globulin Ratio 0.4 (1.0-2.7) L Vancomycin Level Trough 13.5 ug/mL (5.0-12.0) H Assessment Post-op Diagnosis s/p exploratory laparotomy, abdominal washout, open abdomen Plan Problems: (1) Severe sepsis Assessment & Plan: 37F severe sepsis. etiology unknown. labs as above. radiology as above. arrested on arrival in ED and currently in ICU. CXR and KUB reviewed. question of possible free air. on KUB very stool filled bowel with dilated bowels On exam with incarcerated umbilical hernia, cannot determine if chronic, acute, bowel or fat. was able to reduce at bedside fortunately. Need CT scan but unfortunately too unstable for examination Warrants diagnostic laparoscopy vs exploration but given recent events, current condition, and history would not be safe and needs resuscitation first. would unlikely tolerate surgery. needs to respond to resuscitation first. likely very dehydrated given labs. s/p ex lap with open abdomen s/p re-ex lap 48hrs after for washout, bowel resection, ostomy, abd closure recovering labs reviewed HD stability improving drains with serous output ostomy viable with good output now tolerating tube feeds -IV fluids -IV Abx -trend labs -rock -drain care and management -packing and dressings to midline wound BID -ostomy care/bag will follow closely. unfortunately very poor prognosis. Marshall Ferguson Jan 24, 2018 13:07
--- NOTE | 2018-01-24 13:33 | Cardiology Progress Note ---
Assessment/Plan Status: stable Assessment/Plan (1) Acute on chronic respiratory failure (2) Sepsis (3) Anoxic brain injury (4) Feeding by G-tube (5) Tachycardia (6) S/P exploratory laparotomy, left hemicolectomy Continue respiratory support G tube to suction, feels held Wound care per surgery Replete electrolytes IV stress dose steroids Albumin prn hypotension Weaned pressors Echo reviewed Poor prognosis WBC elevated, continue broad abx Subjective Cardiovascular: Reports: no symptoms Respiratory: Reports: no symptoms Gastrointestinal/Abdominal: Reports: no symptoms Genitourinary: Reports: no symptoms Subjective WBC elevated H/H dropped Ostomy with output Vitals stable - off pressors- Serosanguineous fluid noted on both G tube on LIWS, no output Objective Last 24 Hour Vital Signs Date Time Temp Pulse Resp B/P (MAP) Pulse Ox O2 Delivery O2 Flow Rate FiO2 01/24/18 13:00 105 26 117/67 (84) 100 01/24/18 12:49 100 24 30 01/24/18 12:00 98.6 101 24 119/65 (83) 100 98.6 01/24/18 12:00 Mechanical Ventilator 01/24/18 12:00 30 01/24/18 11:11 103 23 30 01/24/18 11:00 99 12 109/53 (71) 100 01/24/18 10:00 96 19 112/64 (80) 100 01/24/18 09:20 74 18 30 01/24/18 09:00 98 21 117/58 (77) 100 01/24/18 08:00 98.5 99 19 114/62 (79) 100 98.5 99 01/24/18 08:00 30 01/24/18 08:00 80 01/24/18 08:00 Mechanical Ventilator 01/24/18 07:00 79 19 115/62 (79) 99 85 01/24/18 06:40 81 22 30 01/24/18 06:00 86 19 127/62 (83) 99 87 01/24/18 05:28 99 19 30 01/24/18 05:00 89 19 118/63 (81) 99 87 01/24/18 04:00 84 01/24/18 04:00 97.3 89 18 118/63 (81) 99 97.3 90 01/24/18 04:00 Mechanical Ventilator 01/24/18 04:00 30 01/24/18 03:31 99 19 30 01/24/18 03:00 84 20 126/59 (81) 99 90 01/24/18 02:00 82 22 129/58 (81) 99 90 01/24/18 01:00 84 20 127/59 (81) 99 90 01/24/18 00:56 80 19 30 01/24/18 00:00 98.3 84 20 133/70 (91) 99 98.3 90 01/24/18 00:00 30 01/24/18 00:00 84 01/24/18 00:00 Mechanical Ventilator 01/23/18 23:00 90 20 116/67 (83) 99 01/23/18 22:51 88 19 30 01/23/18 22:00 89 19 122/63 (82) 99 01/23/18 21:05 100 19 30 01/23/18 21:00 91 20 120/53 (75) 100 01/23/18 20:00 98.3 92 16 119/59 (79) 100 98.3 01/23/18 20:00 30 01/23/18 20:00 86 01/23/18 20:00 Mechanical Ventilator 01/23/18 19:02 88 19 30 01/23/18 19:00 75 16 122/88 (99) 99 01/23/18 18:00 79 16 121/70 (87) 99 01/23/18 17:20 73 19 30 01/23/18 17:00 83 16 125/69 (87) 99 01/23/18 16:00 98.6 85 19 114/66 (82) 99 98.6 01/23/18 16:00 87 01/23/18 16:00 Mechanical Ventilator 01/23/18 16:00 30 01/23/18 15:10 86 18 30 01/23/18 15:00 92 18 106/70 (82) 99 01/23/18 14:00 87 19 112/59 (76) 99 General Appearance: on vent EENT: PERRL/EOMI Neck: non-tender Rhythm: NSR Cardiovascular: normal peripheral pulses Respiratory/Chest: chest wall non-tender Abdomen: hypoactive bowel sounds, tender Extremities: normal range of motion Neurologic: abnormal CN, motor weakness, sensory deficit, unresponsiveness Intake and Output 01/23/18 01/24/18 19:00 07:00 Intake Total 2026 ml 2103 ml Output Total 1615 ml 1210 ml Balance 411 ml 893 ml Intake Oral 0 ml 0 ml IV Total 2026 ml 2093 ml Tube Feeding 10 ml Output Urine Total 970 ml 670 ml Stool Total 400 ml 200 ml Drainage Total 245 ml 340 ml # Bowel Movements 3 Laboratory Tests Test 01/24/18 04:30 01/24/18 11:55 White Blood Count 24.7 K/UL (4.8-10.8) *H Red Blood Count 2.62 M/UL (4.20-5.40) L Hemoglobin 7.9 G/DL (12.0-16.0) L Hematocrit 23.8 % (37.0-47.0) L Mean Corpuscular Volume 91 FL (80-99) Mean Corpuscular Hemoglobin 30.3 PG (27.0-31.0) Mean Corpuscular Hemoglobin Concent 33.4 G/DL (32.0-36.0) Red Cell Distribution Width 12.1 % (11.6-14.8) Platelet Count 132 K/UL (150-450) L Mean Platelet Volume 6.4 FL (6.5-10.1) L Neutrophils (%) (Auto) % (45.0-75.0) Lymphocytes (%) (Auto) % (20.0-45.0) Monocytes (%) (Auto) % (1.0-10.0) Eosinophils (%) (Auto) % (0.0-3.0) Basophils (%) (Auto) % (0.0-2.0) Differential Total Cells Counted 100 Neutrophils % (Manual) 77 % (45-75) H Lymphocytes % (Manual) 10 % (20-45) L Monocytes % (Manual) 7 % (1-10) Eosinophils % (Manual) 0 % (0-3) Basophils % (Manual) 0 % (0-2) Band Neutrophils 6 % (0-8) Platelet Estimate Decreased L Platelet Morphology Normal Hypochromasia 1+ PT Mixing Study Pending Mix PT Incubation Time Pending Mix PT Patient/Normal 1:1 Pending Sodium Level 143 MMOL/L (136-145) Potassium Level 3.3 MMOL/L (3.5-5.1) L Chloride Level 117 MMOL/L (98-107) H Carbon Dioxide Level 19 MMOL/L (21-32) L Anion Gap 8 mmol/L (5-15) Blood Urea Nitrogen 19 mg/dL (7-18) H Creatinine 1.5 MG/DL (0.55-1.30) H Estimat Glomerular Filtration Rate 47.6 mL/min (>60) Glucose Level 92 MG/DL (74-106) Calcium Level 6.8 MG/DL (8.5-10.1) L Phosphorus Level 2.6 MG/DL (2.5-4.9) Magnesium Level 1.6 MG/DL (1.8-2.4) L Total Bilirubin 0.4 MG/DL (0.2-1.0) Aspartate Amino Transf (AST/SGOT) 33 U/L (15-37) Alanine Aminotransferase (ALT/SGPT) 197 U/L (12-78) H Alkaline Phosphatase 143 U/L (46-116) H Total Creatine Kinase 172 U/L (26-308) Total Protein 5.0 G/DL (6.4-8.2) L Albumin 1.5 G/DL (3.4-5.0) L Globulin 3.5 g/dL Albumin/Globulin Ratio 0.4 (1.0-2.7) L Vancomycin Level Trough 13.5 ug/mL (5.0-12.0) H Rob Cote M.D. Jan 24, 2018 13:33
--- NOTE | 2018-01-24 14:48 | Internal Med Progress Note ---
Subjective Date of Service: Jan 24, 2018 Physician Name Adrian Porter Attending Physician Guillermo Morel MD Current Medications Medications (Trade) Dose Ordered Sig/Kel Route PRN Reason Start Time Stop Time Status Last Admin Dose Admin Acetaminophen (Tylenol) 650 mg Q4H PRN ORAL FEVER 01/18/18 13:00 02/17/18 08:59 Chlorhexidine Gluconate (Neela-Hex 2%) 1 applic DAILY@2000 TOPIC 01/20/18 20:00 02/19/18 19:59 01/23/18 19:36 Dextrose (Dextrose 50%) 25 ml STAT PRN IV Hypoglycemia 01/19/18 07:15 02/17/18 07:14 Dextrose (Dextrose 50%) 50 ml STAT PRN IV Hypoglycemia 01/19/18 07:30 02/17/18 07:29 Dextrose/ Electrolytes 1,000 ml @ 100 mls/hr Q10H IV 01/23/18 09:00 02/22/18 08:59 01/24/18 05:20 Heparin Sodium (Porcine) (Heparin 5000 units/ml) 5,000 units EVERY 12 HOURS SUBQ 01/18/18 21:00 02/17/18 08:59 01/24/18 10:05 Hydrocortisone (Solu-CORTEF) 50 mg EVERY 8 HOURS IV 01/22/18 14:00 02/19/18 21:59 01/24/18 13:58 Levetiracetam 100 ml @ 400 mls/hr Q12HR IVPB 01/18/18 22:30 02/17/18 22:29 01/24/18 08:46 Lorazepam (Ativan 2mg/ml 1ml) 2 mg Q2H PRN IV For Anxiety 01/18/18 13:15 01/25/18 07:14 Meropenem 1 gm/ Sodium Chloride 55 ml @ 110 mls/hr Q12H IVPB 01/18/18 19:30 01/27/18 19:29 01/24/18 07:48 Micafungin Sodium 100 mg/Sodium Chloride 110 ml @ 110 mls/hr Q24H IVPB 01/18/18 20:30 01/25/18 20:29 01/23/18 19:37 Morphine Sulfate (Morphine Sulfate) 4 mg Q4H PRN IVP Severe Pain (Pain Scale 7-10) 01/18/18 15:15 01/25/18 07:14 Norepinephrine Bitartrate 8 mg/ Dextrose 508 ml @ 0 mls/hr Q24H IV 01/18/18 17:00 02/17/18 16:59 01/21/18 07:59 Ondansetron HCl (Zofran) 4 mg Q6H PRN IVP Nausea & Vomiting 01/18/18 13:15 02/17/18 07:14 01/22/18 01:17 Pantoprazole (Protonix) 40 mg Q12HR IV 01/19/18 21:00 02/17/18 08:59 01/24/18 08:46 Phenylephrine HCl 50 mg/Dextrose 250 ml @ 0 mls/hr Q24H IV 01/18/18 15:00 02/17/18 14:59 01/20/18 22:49 Phenytoin 150 mg/ Sodium Chloride 58 ml @ 114 mls/hr EVERY 12 HOURS IVPB 01/18/18 22:30 02/17/18 22:29 01/24/18 09:02 Polyethylene Glycol (Miralax) 17 gm DAILYPRN PRN ORAL Constipation 01/19/18 07:15 02/17/18 07:14 Trimethoprim/ Sulfamethoxazole 20 ml/Dextrose 570 ml @ 380 mls/hr Q12H IV 01/22/18 23:00 01/29/18 22:59 01/24/18 10:47 Vancomycin HCl (Vanco rx to dose) 1 ea DAILY PRN MISC Per rx protocol 01/21/18 11:30 02/20/18 11:29 Vancomycin HCl 1 gm/Dextrose 275 ml @ 183.708 mls/hr Q24H IVPB 01/22/18 13:00 01/27/18 12:59 01/24/18 13:02 Allergies: Coded Allergies: No Known Allergies (Unverified , 01/18/15) ROS Limited/Unobtainable: Yes Subjective 37 YO F admitted with abdominal distention. S/P cardiac arrest. S/P exploratory laparotomy 01/19/18. S/P sigmoidectomy and hemicolectomy 01/21/18. Cover for Int Med-Dr Morel. Intubated and sedated. ICU Objective Last Vital Signs Date Time Temp Pulse Resp B/P (MAP) Pulse Ox O2 Delivery O2 Flow Rate FiO2 01/24/18 14:00 97 23 121/64 (83) 100 01/24/18 12:49 30 01/24/18 12:00 98.6 98.6 01/24/18 12:00 Mechanical Ventilator 01/21/18 19:00 30.0 Laboratory Tests Test 01/24/18 04:30 01/24/18 11:55 White Blood Count 24.7 K/UL (4.8-10.8) *H Red Blood Count 2.62 M/UL (4.20-5.40) L Hemoglobin 7.9 G/DL (12.0-16.0) L Hematocrit 23.8 % (37.0-47.0) L Mean Corpuscular Volume 91 FL (80-99) Mean Corpuscular Hemoglobin 30.3 PG (27.0-31.0) Mean Corpuscular Hemoglobin Concent 33.4 G/DL (32.0-36.0) Red Cell Distribution Width 12.1 % (11.6-14.8) Platelet Count 132 K/UL (150-450) L Mean Platelet Volume 6.4 FL (6.5-10.1) L Neutrophils (%) (Auto) % (45.0-75.0) Lymphocytes (%) (Auto) % (20.0-45.0) Monocytes (%) (Auto) % (1.0-10.0) Eosinophils (%) (Auto) % (0.0-3.0) Basophils (%) (Auto) % (0.0-2.0) Differential Total Cells Counted 100 Neutrophils % (Manual) 77 % (45-75) H Lymphocytes % (Manual) 10 % (20-45) L Monocytes % (Manual) 7 % (1-10) Eosinophils % (Manual) 0 % (0-3) Basophils % (Manual) 0 % (0-2) Band Neutrophils 6 % (0-8) Platelet Estimate Decreased L Platelet Morphology Normal Hypochromasia 1+ PT Mixing Study Pending Mix PT Incubation Time Pending Mix PT Patient/Normal 1:1 Pending Sodium Level 143 MMOL/L (136-145) Potassium Level 3.3 MMOL/L (3.5-5.1) L Chloride Level 117 MMOL/L (98-107) H Carbon Dioxide Level 19 MMOL/L (21-32) L Anion Gap 8 mmol/L (5-15) Blood Urea Nitrogen 19 mg/dL (7-18) H Creatinine 1.5 MG/DL (0.55-1.30) H Estimat Glomerular Filtration Rate 47.6 mL/min (>60) Glucose Level 92 MG/DL (74-106) Calcium Level 6.8 MG/DL (8.5-10.1) L Phosphorus Level 2.6 MG/DL (2.5-4.9) Magnesium Level 1.6 MG/DL (1.8-2.4) L Total Bilirubin 0.4 MG/DL (0.2-1.0) Aspartate Amino Transf (AST/SGOT) 33 U/L (15-37) Alanine Aminotransferase (ALT/SGPT) 197 U/L (12-78) H Alkaline Phosphatase 143 U/L (46-116) H Total Creatine Kinase 172 U/L (26-308) Total Protein 5.0 G/DL (6.4-8.2) L Albumin 1.5 G/DL (3.4-5.0) L Globulin 3.5 g/dL Albumin/Globulin Ratio 0.4 (1.0-2.7) L Vancomycin Level Trough 13.5 ug/mL (5.0-12.0) H Intake and Output 01/23/18 01/24/18 19:00 07:00 Intake Total 2026 ml 2103 ml Output Total 1615 ml 1210 ml Balance 411 ml 893 ml Intake Oral 0 ml 0 ml IV Total 2026 ml 2093 ml Tube Feeding 10 ml Output Urine Total 970 ml 670 ml Stool Total 400 ml 200 ml Drainage Total 245 ml 340 ml # Bowel Movements 3 Objective General Appearance: WD/WN, lethargic EENT: normal ENT inspection Neck: non-tender, normal alignment, supple, other - tracheostomy Cardiovascular: normal peripheral pulses, normal rate, regular rhythm, regularly irregular, no gallop/murmur, no JVD Respiratory/Chest: Mech vent; chest wall non-tender, no accessory muscle use, rhonchi - bilaterally, other - Mech Vent Abdomen: normal bowel sounds, non tender, soft, no organomegaly, no mass Extremities: normal inspection Skin: normal pigmentation, warm/dry Assessment/Plan Problem List: (1) Incarcerated ventral hernia Assessment & Plan: S/P exploratory laparotomy on 01/19/18-see surgery note. S/P sigmoidectomy, omentectomy and hemicolectomy on 01/21/18. Continue bactrim, vanco and meropenem per ID (2) Volvulus of sigmoid colon (3) Abdominal distension Assessment & Plan: Resolving-see surgery note. (4) Cardiac arrest Assessment & Plan: see cardiology note (5) Seizure disorder Assessment & Plan: Continue keppra and dilantin (6) Anemia (7) Hypertension Assessment & Plan: Hypotensived. Currently on pressors. (8) Encephalopathy (9) Dysphagia Status: not improved Assessment/Plan prognosis is guarded. Adrian Porter MD Jan 24, 2018 14:48
[2018-01-24] MEDS: Phenylephrine 50 MG in D5W 245 ML IV SCH (15:00)
--- NOTE | 2018-01-24 16:26 | Infectious Diseases Prog Note ---
Assessment/Plan Assessment/Plan Assessment: Septic shock ; resolved after surgical exploration- 2ry intraabdominal source- (intra-abdominal peritonitis 2ry to malpositioned gastric feeding tube, incarcerated fat containing ventral hernia and likely sigmoid volvulus) --SP Re-exploration of abdomen, Sigmoid colectomy for volvulus, Takedown of splenic flexure, Left hemicolectomy, Creation of transverse colostomy, Abdominal closure 01/21 -OR findings: no further leakage of gastric contents or feeds. No bleeding. sigmoid colon remained significantly distended despite rectal tube placement and prior decompression. Sigmoid colon easily volvulized intraoperatively. --SP Exploratory laparotomy, Abdominal washout, G-tube replacement, wound vac placment, Excision of incarcerated ventral hernia, and Reduction of sigmoid volvulus 01/19 --no perforation or gross necrosis noted upon surgical exploration --abd fluid cx NTD -No obvious pathology on lungs on CXR. r/o UTI -Bcx 2/4 Diptheroids, 1/4 CONS (contaminants), Aerococcus sp (typically a urinary pathogen), ?UTI (often is not isolated from urine culture given special media requirements) -u/a initial normal; repeat WBC 10-15, nit +, leuk +1 but sq cells mod ( contaminated); ucx NTD -sp cx MDR ABC ( S Bactrim), GNB#2 (likely colonizer) -CXR: Hyperlucent the upper abdomen. Free air not excluded. Correlate clinically. Distended bowel also noted. No acute disease within the chest. Tracheostomy Fever/leukocytosis; Fever resolved; leukocytosis worsening- r/o SONJA, intrabodminal abscess -CXR: Question of new pneumomediastinum along the left heart margin. Question whether the tracheostomy is appropriately sealed. Basilar opacities again noted, increased on the left. Some of this could be due to differences in positioning, but question increasing pleural fluid and associated atelectasis/consolidation. Right-sided opacity is stable. ?Pneumomediastinum Elevated CPK- likely 2ry to sepsis, Dapto possibly also contributing- resolved -Dapto d/c 01/21 ?PNA- -CXR 01/21: Airspace disease versus atelectasis at the lung bases. Correlate clinically. Probable improvement in interstitial edema since the prior study. 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 SNF resident Plan: -Continue IV Vancomycin abx d#7, Meropenem and Micafungin #7 for septic shock and for bowel emmanuel coverage -will narrow in the following days -01/21 SP Daptomycin #4 (d/c due to elevated CPK) -01/18 SP IV Vancomycin #1, Cefepime x1, Azithromycin x1, Zosyn x1 -Continue PO Bactrim #3 to cover for MDR ABC given possible infiltrates in CXR and worsening WBC -Repeat u/a, ucx, Bcx x2, sp cx -CT chest/abd/p w/ PO contrast if taking PO to further evaluate possible pneumomediastinum on CXR and occult infection -f/u cx -Monitor CBC/BMP, temperatures -Trend WBC -Surgery following -wound care per hospital protocol Thank you for this consultation. Will continue to follow along with you. Discussed with RN Subjective Allergies: Coded Allergies: No Known Allergies (Unverified , 01/18/15) Subjective afebrile WBC worsened Objective Vital Signs Last 24 Hour Vital Signs Date Time Temp Pulse Resp B/P (MAP) Pulse Ox O2 Delivery O2 Flow Rate FiO2 01/24/18 15:07 89 23 30 01/24/18 15:00 79 122/69 01/24/18 15:00 97 24 120/60 (80) 100 01/24/18 14:00 79 21 122/69 (86) 100 01/24/18 13:00 105 26 117/67 (84) 100 01/24/18 12:49 100 24 30 01/24/18 12:00 98.6 101 24 119/65 (83) 100 98.6 01/24/18 12:00 Mechanical Ventilator 01/24/18 12:00 30 01/24/18 12:00 94 01/24/18 11:11 103 23 30 01/24/18 11:00 99 12 109/53 (71) 100 01/24/18 10:00 96 19 112/64 (80) 100 01/24/18 09:20 74 18 30 01/24/18 09:00 98 21 117/58 (77) 100 01/24/18 08:00 98.5 99 19 114/62 (79) 100 98.5 99 01/24/18 08:00 30 01/24/18 08:00 80 01/24/18 08:00 Mechanical Ventilator 01/24/18 07:00 79 19 115/62 (79) 99 85 01/24/18 06:40 81 22 30 01/24/18 06:00 86 19 127/62 (83) 99 87 01/24/18 05:28 99 19 30 01/24/18 05:00 89 19 118/63 (81) 99 87 01/24/18 04:00 84 01/24/18 04:00 97.3 89 18 118/63 (81) 99 97.3 90 01/24/18 04:00 Mechanical Ventilator 01/24/18 04:00 30 01/24/18 03:31 99 19 30 01/24/18 03:00 84 20 126/59 (81) 99 90 01/24/18 02:00 82 22 129/58 (81) 99 90 01/24/18 01:00 84 20 127/59 (81) 99 90 01/24/18 00:56 80 19 30 01/24/18 00:00 98.3 84 20 133/70 (91) 99 98.3 90 01/24/18 00:00 30 01/24/18 00:00 84 01/24/18 00:00 Mechanical Ventilator 01/23/18 23:00 90 20 116/67 (83) 99 01/23/18 22:51 88 19 30 01/23/18 22:00 89 19 122/63 (82) 99 01/23/18 21:05 100 19 30 01/23/18 21:00 91 20 120/53 (75) 100 01/23/18 20:00 98.3 92 16 119/59 (79) 100 98.3 01/23/18 20:00 30 01/23/18 20:00 86 01/23/18 20:00 Mechanical Ventilator 01/23/18 19:02 88 19 30 01/23/18 19:00 75 16 122/88 (99) 99 01/23/18 18:00 79 16 121/70 (87) 99 18 17:20 73 19 30 01/23/18 17:00 83 16 125/69 (87) 99 Height (Feet): 5 Height (Inches): 3.00 Weight (Pounds): 184 Objective General Appearance: chronically ill HEENT: normocephalic, bilateral eye PERRL Neck: tracheotomy Respiratory: crackles, rhonchi Cardiovascular : tachycardia Gastrointestinal: Gtube present; significant abd distention with some grimacing upon palpation; diminished to absent bowel sounds Genitourinary: rock in place Musculoskeletal: other - contracted extremities Neurologic: other - nonverbal Skin: no rash or cellulitis Laboratory Tests Test 01/24/18 04:30 01/24/18 11:55 White Blood Count 24.7 K/UL (4.8-10.8) *H Red Blood Count 2.62 M/UL (4.20-5.40) L Hemoglobin 7.9 G/DL (12.0-16.0) L Hematocrit 23.8 % (37.0-47.0) L Mean Corpuscular Volume 91 FL (80-99) Mean Corpuscular Hemoglobin 30.3 PG (27.0-31.0) Mean Corpuscular Hemoglobin Concent 33.4 G/DL (32.0-36.0) Red Cell Distribution Width 12.1 % (11.6-14.8) Platelet Count 132 K/UL (150-450) L Mean Platelet Volume 6.4 FL (6.5-10.1) L Neutrophils (%) (Auto) % (45.0-75.0) Lymphocytes (%) (Auto) % (20.0-45.0) Monocytes (%) (Auto) % (1.0-10.0) Eosinophils (%) (Auto) % (0.0-3.0) Basophils (%) (Auto) % (0.0-2.0) Differential Total Cells Counted 100 Neutrophils % (Manual) 77 % (45-75) H Lymphocytes % (Manual) 10 % (20-45) L Monocytes % (Manual) 7 % (1-10) Eosinophils % (Manual) 0 % (0-3) Basophils % (Manual) 0 % (0-2) Band Neutrophils 6 % (0-8) Platelet Estimate Decreased L Platelet Morphology Normal Hypochromasia 1+ PT Mixing Study Pending Mix PT Incubation Time Pending Mix PT Patient/Normal 1:1 Pending Sodium Level 143 MMOL/L (136-145) Potassium Level 3.3 MMOL/L (3.5-5.1) L Chloride Level 117 MMOL/L (98-107) H Carbon Dioxide Level 19 MMOL/L (21-32) L Anion Gap 8 mmol/L (5-15) Blood Urea Nitrogen 19 mg/dL (7-18) H Creatinine 1.5 MG/DL (0.55-1.30) H Estimat Glomerular Filtration Rate 47.6 mL/min (>60) Glucose Level 92 MG/DL (74-106) Calcium Level 6.8 MG/DL (8.5-10.1) L Phosphorus Level 2.6 MG/DL (2.5-4.9) Magnesium Level 1.6 MG/DL (1.8-2.4) L Total Bilirubin 0.4 MG/DL (0.2-1.0) Aspartate Amino Transf (AST/SGOT) 33 U/L (15-37) Alanine Aminotransferase (ALT/SGPT) 197 U/L (12-78) H Alkaline Phosphatase 143 U/L (46-116) H Total Creatine Kinase 172 U/L (26-308) Total Protein 5.0 G/DL (6.4-8.2) L Albumin 1.5 G/DL (3.4-5.0) L Globulin 3.5 g/dL Albumin/Globulin Ratio 0.4 (1.0-2.7) L Vancomycin Level Trough 13.5 ug/mL (5.0-12.0) H Current Medications Medications (Trade) Dose Ordered Sig/Kel Route PRN Reason Start Time Stop Time Status Last Admin Dose Admin Acetaminophen (Tylenol) 650 mg Q4H PRN ORAL FEVER 01/18/18 13:00 02/17/18 08:59 Chlorhexidine Gluconate (Neela-Hex 2%) 1 applic DAILY@2000 TOPIC 01/20/18 20:00 02/19/18 19:59 01/23/18 19:36 Dextrose (Dextrose 50%) 25 ml STAT PRN IV Hypoglycemia 01/19/18 07:15 02/17/18 07:14 Dextrose (Dextrose 50%) 50 ml STAT PRN IV Hypoglycemia 01/19/18 07:30 02/17/18 07:29 Dextrose/ Electrolytes 1,000 ml @ 100 mls/hr Q10H IV 01/23/18 09:00 02/22/18 08:59 01/24/18 15:03 Heparin Sodium (Porcine) (Heparin 5000 units/ml) 5,000 units EVERY 12 HOURS SUBQ 01/18/18 21:00 02/17/18 08:59 01/24/18 10:05 Hydrocortisone (Solu-CORTEF) 50 mg EVERY 8 HOURS IV 01/22/18 14:00 02/19/18 21:59 01/24/18 13:58 Levetiracetam 100 ml @ 400 mls/hr Q12HR IVPB 01/18/18 22:30 02/17/18 22:29 01/24/18 08:46 Lorazepam (Ativan 2mg/ml 1ml) 2 mg Q2H PRN IV For Anxiety 01/18/18 13:15 01/25/18 07:14 Meropenem 1 gm/ Sodium Chloride 55 ml @ 110 mls/hr Q12H IVPB 01/18/18 19:30 01/27/18 19:29 01/24/18 07:48 Micafungin Sodium 100 mg/Sodium Chloride 110 ml @ 110 mls/hr Q24H IVPB 01/18/18 20:30 01/25/18 20:29 01/23/18 19:37 Morphine Sulfate (Morphine Sulfate) 4 mg Q4H PRN IVP Severe Pain (Pain Scale 7-10) 01/18/18 15:15 01/25/18 07:14 Norepinephrine Bitartrate 8 mg/ Dextrose 508 ml @ 0 mls/hr Q24H IV 01/18/18 17:00 02/17/18 16:59 01/21/18 07:59 Ondansetron HCl (Zofran) 4 mg Q6H PRN IVP Nausea & Vomiting 01/18/18 13:15 02/17/18 07:14 01/22/18 01:17 Pantoprazole (Protonix) 40 mg Q12HR IV 01/19/18 21:00 02/17/18 08:59 01/24/18 08:46 Phenylephrine HCl 50 mg/Dextrose 250 ml @ 0 mls/hr Q24H IV 01/18/18 15:00 02/17/18 14:59 01/20/18 22:49 Phenytoin 150 mg/ Sodium Chloride 58 ml @ 114 mls/hr EVERY 12 HOURS IVPB 01/18/18 22:30 02/17/18 22:29 7/8/18 09:02 Polyethylene Glycol (Miralax) 17 gm DAILYPRN PRN ORAL Constipation 01/19/18 07:15 02/17/18 07:14 Trimethoprim/ Sulfamethoxazole 20 ml/Dextrose 570 ml @ 380 mls/hr Q12H IV 01/22/18 23:00 01/29/18 22:59 01/24/18 10:47 Vancomycin HCl (Vanco rx to dose) 1 ea DAILY PRN MISC Per rx protocol 01/21/18 11:30 02/20/18 11:29 Vancomycin HCl 1 gm/Dextrose 275 ml @ 183.708 mls/hr Q24H IVPB 01/22/18 13:00 01/27/18 12:59 01/24/18 13:02 Amelia Bah M.D. Jan 24, 2018 16:26
[2018-01-24] MEDS ORDERED: Gastrograffin 30ml RECTAL PRN (16:30)
[2018-01-24] MEDS ORDERED: Gastrograffin 30ml ORAL PRN (16:30)
--- NOTE | 2018-01-24 18:15 | Pulmonolgy Critical Care Note ---
Critical Care - Asmt/Plan Problems: (1) Acute on chronic respiratory failure (2) Sepsis (3) Anoxic brain injury (4) Feeding by G-tube (5) Tachycardia Respiratory: monitor respiratory rate, adjust FIO2, CXR Cardiac: continue to monitor HR/BP Renal: F/U I&O, keep IV fluid Infectious Disease: check cultures Gastrointestinal: continue feedings/current rate Endocrine: monitor blood sugar, check TSH Hematologic: monitor H/H, transfuse if hgb<8.5 Neurologic: PRN Ativan, PRN Morphine, keep patient comfortable Prophylaxis: Protonix Disposition: keep in ICU Notes Reviewed: cardio Discussed with: nurses, consultants, classification case managerintermediate project manager - Objective Last 24 Hour Vital Signs Date Time Temp Pulse Resp B/P (MAP) Pulse Ox O2 Delivery O2 Flow Rate FiO2 01/24/18 17:25 108 26 30 01/24/18 17:00 99 20 116/61 (79) 97 01/24/18 16:00 30 01/24/18 16:00 Mechanical Ventilator 01/24/18 16:00 98.7 100 12 123/71 (88) 98 98.7 01/24/18 15:07 89 23 30 01/24/18 15:00 79 122/69 01/24/18 15:00 97 24 120/60 (80) 100 01/24/18 14:00 79 21 122/69 (86) 100 01/24/18 13:00 105 26 117/67 (84) 100 01/24/18 12:49 100 24 30 01/24/18 12:00 98.6 101 24 119/65 (83) 100 98.6 01/24/18 12:00 Mechanical Ventilator 01/24/18 12:00 30 01/24/18 12:00 94 01/24/18 11:11 103 23 30 01/24/18 11:00 99 12 109/53 (71) 100 01/24/18 10:00 96 19 112/64 (80) 100 01/24/18 09:20 74 18 30 01/24/18 09:00 98 21 117/58 (77) 100 01/24/18 08:00 98.5 99 19 114/62 (79) 100 98.5 99 01/24/18 08:00 30 01/24/18 08:00 80 01/24/18 08:00 Mechanical Ventilator 01/24/18 07:00 79 19 115/62 (79) 99 85 01/24/18 06:40 81 22 30 01/24/18 06:00 86 19 127/62 (83) 99 87 01/24/18 05:28 99 19 30 01/24/18 05:00 89 19 118/63 (81) 99 87 01/24/18 04:00 84 01/24/18 04:00 97.3 89 18 118/63 (81) 99 97.3 90 01/24/18 04:00 Mechanical Ventilator 01/24/18 04:00 30 01/24/18 03:31 99 19 30 01/24/18 03:00 84 20 126/59 (81) 99 90 01/24/18 02:00 82 22 129/58 (81) 99 90 01/24/18 01:00 84 20 127/59 (81) 99 90 01/24/18 00:56 80 19 30 01/24/18 00:00 98.3 84 20 133/70 (91) 99 98.3 90 01/24/18 00:00 30 01/24/18 00:00 84 01/24/18 00:00 Mechanical Ventilator 01/23/18 23:00 90 20 116/67 (83) 99 01/23/18 22:51 88 19 30 01/23/18 22:00 89 19 122/63 (82) 99 01/23/18 21:05 100 19 30 01/23/18 21:00 91 20 120/53 (75) 100 01/23/18 20:00 98.3 92 16 119/59 (79) 100 98.3 01/23/18 20:00 30 01/23/18 20:00 86 01/23/18 20:00 Mechanical Ventilator 01/23/18 19:02 88 19 30 01/23/18 19:00 75 16 122/88 (99) 99 Status: awake Condition: critical HEENT: atraumatic, normocephalic Lungs: clear Heart: HR/BP stable Abdomen: soft, non-tender Extremities: no C/C/E Decubiti: location Accucheck: 248 Critical Care - Subjective ROS Limited/Unobtainable: Yes Condition: critical EKG Rhythm: Sinus Rhythm FI02: 30 Vent Support Breath Rate: 12 Vent Support Mode: AC Vent Tidal Volume: 600 Sputum Amount: Small PEEP: 5.0 PIP: 24 Tube Feeding Amount: 60 I&O: Intake and Output 01/23/18 01/24/18 19:00 07:00 Intake Total 2026 ml 2103 ml Output Total 1615 ml 1210 ml Balance 411 ml 893 ml Intake Oral 0 ml 0 ml IV Total 2026 ml 2093 ml Tube Feeding 10 ml Output Urine Total 970 ml 670 ml Stool Total 400 ml 200 ml Drainage Total 245 ml 340 ml # Bowel Movements 3 CXR: bibasilar infiltrate Labs: Laboratory Tests Test 01/24/18 11:55 01/24/18 17:10 01/25/18 05:50 01/25/18 09:00 Vancomycin Level Trough 13.5 ug/mL (5.0-12.0) H Urine Color Pale yellow Urine Appearance Clear Urine pH 7 (4.5-8.0) Urine Specific [place] 1.010 (1.005-1.035) Urine Protein 1+ (NEGATIVE) H Urine Glucose (UA) Negative (NEGATIVE) Urine Ketones Negative (NEGATIVE) Urine Occult Blood 1+ (NEGATIVE) H Urine Nitrite Negative (NEGATIVE) Urine Bilirubin Negative (NEGATIVE) Urine Urobilinogen Normal MG/DL (0.0-1.0) Urine Leukocyte Esterase Negative (NEGATIVE) Urine RBC 2-4 /HPF (0 - 2) H Urine WBC 0-2 /HPF (0 - 2) Urine Squamous Epithelial Cells Few /LPF (NONE/OCC) Urine Bacteria Few /HPF (NONE) White Blood Count 28.9 K/UL (4.8-10.8) *H Red Blood Count 2.72 M/UL (4.20-5.40) L Hemoglobin 7.9 G/DL (12.0-16.0) L Hematocrit 24.5 % (37.0-47.0) L Mean Corpuscular Volume 90 FL (80-99) Mean Corpuscular Hemoglobin 29.1 PG (27.0-31.0) Mean Corpuscular Hemoglobin Concent 32.2 G/DL (32.0-36.0) Red Cell Distribution Width 11.8 % (11.6-14.8) Platelet Count 183 K/UL (150-450) Mean Platelet Volume 6.4 FL (6.5-10.1) L Neutrophils (%) (Auto) % (45.0-75.0) Lymphocytes (%) (Auto) % (20.0-45.0) Monocytes (%) (Auto) % (1.0-10.0) Eosinophils (%) (Auto) % (0.0-3.0) Basophils (%) (Auto) % (0.0-2.0) Differential Total Cells Counted 100 Neutrophils % (Manual) 82 % (45-75) H Lymphocytes % (Manual) 8 % (20-45) L Monocytes % (Manual) 9 % (1-10) Eosinophils % (Manual) 1 % (0-3) Basophils % (Manual) 0 % (0-2) Band Neutrophils 0 % (0-8) Platelet Estimate Adequate Platelet Morphology Normal Sodium Level 143 MMOL/L (136-145) Potassium Level 3.3 MMOL/L (3.5-5.1) L Chloride Level 114 MMOL/L (98-107) H Carbon Dioxide Level 19 MMOL/L (21-32) L Anion Gap 10 mmol/L (5-15) Blood Urea Nitrogen 14 mg/dL (7-18) Creatinine 1.3 MG/DL (0.55-1.30) Estimat Glomerular Filtration Rate 56.2 mL/min (>60) Glucose Level 102 MG/DL (74-106) Calcium Level 6.5 MG/DL (8.5-10.1) L Phosphorus Level 1.9 MG/DL (2.5-4.9) L Magnesium Level 1.6 MG/DL (1.8-2.4) L Total Bilirubin 0.2 MG/DL (0.2-1.0) Aspartate Amino Transf (AST/SGOT) 21 U/L (15-37) Alanine Aminotransferase (ALT/SGPT) 113 U/L (12-78) H Alkaline Phosphatase 119 U/L (46-116) H Total Creatine Kinase 84 U/L (26-308) Total Protein 4.6 G/DL (6.4-8.2) L Albumin 1.3 G/DL (3.4-5.0) L Globulin 3.3 g/dL Albumin/Globulin Ratio 0.4 (1.0-2.7) L Arterial Blood pH 7.384 (7.350-7.450) Arterial Blood Partial Pressure CO2 25.7 mmHg (35.0-45.0) L Arterial Blood Partial Pressure O2 101.3 mmHg (75.0-100.0) H Arterial Blood HCO3 15.0 mmol/L (22.0-26.0) L Arterial Blood Oxygen Saturation 97.1 % (92.0-98.0) Arterial Blood Base Excess -8.9 Benjie Test Positive Yanick Hernandez MD Jan 24, 2018 18:15
[2018-01-24 18:49] LABS: APPEARANCE,URINE CLEAR; BILIRUBIN, URINE NEGATIVE (NEGATIVE); COLOR,URINE PALE YELLOW; GLUCOSE, URINE (UA) NEGATIVE (NEGATIVE); KETONES,URINE NEGATIVE (NEGATIVE); LEUKOCYTE ESTERASE ,URINE NEGATIVE (NEGATIVE); NITRITE,URINE NEGATIVE (NEGATIVE); PH,URINE 7 (4.5-8.0); PROTEIN,URINE 1+ (NEGATIVE); UROBILINOGEN,URINE NORMAL MG/DL (0.0-1.0)
[2018-01-24] MEDS: Dyna-Hex 2% Top Sol 2oz TOPIC SCH (19:56)
[2018-01-24] MEDS: Micafungin 100 MG in NS 110 ML IVPB SCH (20:40)
[2018-01-25] VITALS (24 sets, daily range): BP systolic 97–124; BP diastolic 47–72
[2018-01-25] MEDS: Bactrim 20ml in D5W 550ml IV SCH ×3 (00:16→23:48)
[2018-01-25] MEDS: D5 1/2NS w/KCl 20mEq 1,000 ML IV SCH (01:48)
[2018-01-25] MEDS: Hydrocortisone 100mg Inj IV SCH (05:41)
[2018-01-25 06:13] LABS: HEMATOCRIT 24.5 % (37.0-47.0); HEMOGLOBIN 7.9 G/DL (12.0-16.0); MEAN CORPUSCULAR VOLUME 90 FL (80-99); PLATELET COUNT 183 K/UL (150-450); RED BLOOD COUNT 2.72 M/UL (4.20-5.40); RED CELL DISTRIBUTION WIDTH 11.8 % (11.6-14.8)
[2018-01-25 06:29] LABS: WHITE BLOOD COUNT 28.9 K/UL (4.8-10.8)
[2018-01-25 06:33] LABS: ALBUMIN 1.3 G/DL (3.4-5.0); ALBUMIN/GLOBULIN RATIO 0.4 (1.0-2.7); ANION GAP 10 mmol/L (5-15); BLOOD UREA NITROGEN 14 mg/dL (7-18); CALCIUM 6.5 MG/DL (8.5-10.1); CARBON DIOXIDE 19 MMOL/L (21-32); CHLORIDE 114 MMOL/L (98-107); CREATINE KINASE 84 U/L (26-308); POTASSIUM 3.3 MMOL/L (3.5-5.1); SODIUM 143 MMOL/L (136-145)
[2018-01-25 06:35] LABS: ALANINE AMINOTRANSFERASE 113 U/L (12-78); ALKALINE PHOSPHATASE 119 U/L (46-116); ASPARTATE AMINO TRANSFERASE 21 U/L (15-37); BILIRUBIN,TOTAL 0.2 MG/DL (0.2-1.0); CREATININE 1.3 MG/DL (0.55-1.30)
[2018-01-25 06:37] LABS: PHOSPHORUS 1.9 MG/DL (2.5-4.9)
[2018-01-25] MEDS: Meropenem 1 GM in NS 55 ML IVPB SCH (08:30)
[2018-01-25] MEDS: Pantoprazole Inj IV SCH ×2 (08:45→20:39)
[2018-01-25] MEDS: levETIRAcetam 1,000mg/NS100ml 100 ML IVPB SCH ×2 (08:52→20:39)
[2018-01-25] MEDS: Heparin 5000 units/ml inj SUBQ SCH ×2 (08:59→21:01)
[2018-01-25] MEDS ORDERED: Potassium Phosphate 30 MM in NS 275 ML IV SCH (09:30)
[2018-01-25] MEDS: NS IVPB SCH ×2 (10:00→20:40)
[2018-01-25] MEDS: PHENYTOIN IVPB SCH ×2 (10:00→20:40)
--- NOTE | 2018-01-25 10:04 | Diagnostic Imaging Report ---
Indication: Chest and abdominal pain Technique: Continuous helical transaxial imaging of the abdomen and pelvis was obtained from the lung bases to the pubic symphysis. No IV contrast was administered. Coronal 2-D reformats were also obtained. Study obtained in a Siemens sensation [address] Total Dose length Product (DLP): 1820.[address] Dose Index Volume (CTDIvol): 24.23 mGy Comparison: None Findings: Tracheostomy is noted which is in good position. There is a PICC line which is in good position tip situated in the SVC. There are small bilateral pleural effusions and associated posterior basal atelectasis. Pneumonia not excludable. There is considerable artifact limiting evaluation of the chest and abdomen. Anasarca noted. The patient has had abdominal surgery. There is an open wound and skin defect oriented vertically along the anterior abdominal wall. There is no obvious abscess within the abdominal wall. Anasarca noted. There is a left lower quadrant ostomy not evaluated well on this study. There is a drain entering the abdomen in the right with the tip in the right hemipelvis noted. Some free fluid noted in the lower abdomen and pelvis not well evaluated on this study. No oral contrast given as such difficult to evaluate bowel. There is dilatation of multiple loops of bowel which may be due to ileus given recent surgery. Follow-up recommended. Consider repeating the study upon follow-up with oral contrast. There is no obvious hydronephrosis. Not certain of the status of the gallbladder which is not definite seen. There is moderate fecal retention in the rectum which is slightly distended. Gil catheter is noted. Small amount of air noted in the bladder lumen. The left hip is abnormal. The femoral head is dislocated laterally from the hip joint. IMPRESSION: Very limited examination due to the lack of intravenous and oral contrast administration. Status post recent abdominal surgery with open anterior abdominal incision still noted. Suggestion of dilatation of multiple loops of small bowel, not evaluated well on this examination. Findings may be due to postoperative ileus. Obstruction is not excludable. Left lower quadrant ostomy noted. Small bilateral pleural effusions and posterior basal atelectasis. Tracheostomy, PICC line, gastrostomy, Gil catheter is in good position. Moderate fecal retention in the rectum which is distended. Anasarca. Considerable artifact due to breathing motion and other artifacts further limiting evaluation The CT scanner at [facility] is accredited by the [employer] [place] [employer] and the scans are performed using dose optimization techniques as appropriate to a performed exam including Automatic Exposure control.
--- NOTE | 2018-01-25 10:14 | Pulmonolgy Critical Care Note ---
Critical Care - Asmt/Plan Problems: (1) Acute on chronic respiratory failure (2) Sepsis (3) Anoxic brain injury (4) Feeding by G-tube (5) Tachycardia Respiratory: monitor respiratory rate, adjust FIO2, CXR Cardiac: continue to monitor HR/BP Renal: F/U I&O Infectious Disease: check cultures Gastrointestinal: continue feedings/current rate Endocrine: monitor blood sugar, check HgA1C Hematologic: monitor H/H, transfuse if hgb<8.5 Neurologic: PRN Ativan, keep patient comfortable Affect: PRN ativan Prophylaxis: Heparin Notes Reviewed: cardio, renal Discussed with: nurses, consultants, lining caserhuman resources operations manager - Objective Last 24 Hour Vital Signs Date Time Temp Pulse Resp B/P (MAP) Pulse Ox O2 Delivery O2 Flow Rate FiO2 01/25/18 09:14 118 23 30 01/25/18 08:00 Mechanical Ventilator 01/25/18 08:00 30 01/25/18 07:23 113 24 30 01/25/18 06:00 107 22 110/60 (77) 100 01/25/18 05:19 111 22 30 01/25/18 05:00 110 24 111/62 (78) 100 01/25/18 04:00 99.4 110 19 97/50 (66) 100 99.4 01/25/18 04:00 106 01/25/18 04:00 Mechanical Ventilator 01/25/18 04:00 30 01/25/18 03:00 110 21 100/51 (67) 100 01/25/18 02:43 108 20 30 01/25/18 02:00 107 21 99/51 (67) 100 01/25/18 01:00 115 22 98/47 (64) 100 01/25/18 00:59 113 20 30 01/25/18 00:00 30 01/25/18 00:00 99.0 115 22 110/56 (74) 100 99.0 01/25/18 00:00 Mechanical Ventilator 01/25/18 00:00 115 01/24/18 23:17 109 24 30 01/24/18 23:00 109 22 118/60 (79) 100 01/24/18 22:00 106 24 125/65 (85) 99 01/24/18 21:07 117 20 30 01/24/18 21:00 106 24 120/74 (89) 99 01/24/18 20:00 30 01/24/18 20:00 Mechanical Ventilator 01/24/18 20:00 99.3 106 25 121/73 (89) 100 99.3 01/24/18 20:00 106 01/24/18 19:00 106 21 120/64 (82) 100 01/24/18 18:50 96 20 30 01/24/18 18:00 92 19 115/63 (80) 100 01/24/18 17:25 108 26 30 01/24/18 17:00 99 20 116/61 (79) 97 01/24/18 16:00 30 01/24/18 16:00 Mechanical Ventilator 01/24/18 16:00 98.7 100 12 123/71 (88) 98 98.7 01/24/18 16:00 97 01/24/18 15:07 89 23 30 01/24/18 15:00 79 122/69 01/24/18 15:00 97 24 120/60 (80) 100 01/24/18 14:00 79 21 122/69 (86) 100 01/24/18 13:00 105 26 117/67 (84) 100 01/24/18 12:49 100 24 30 01/24/18 12:00 98.6 101 24 119/65 (83) 100 98.6 01/24/18 12:00 Mechanical Ventilator 01/24/18 12:00 30 01/24/18 12:00 94 01/24/18 11:11 103 23 30 01/24/18 11:00 99 12 109/53 (71) 100 Status: obtunded Condition: critical HEENT: atraumatic Lungs: clear Heart: HR/BP stable, HR/BP unstable Abdomen: soft, active bowel sounds Extremities: no C/C/E, edema Decubiti: location Accucheck: 248 Critical Care - Subjective ROS Limited/Unobtainable: No Condition: critical EKG Rhythm: Sinus Rhythm FI02: 30 Vent Support Breath Rate: 12 Vent Support Mode: AC Vent Tidal Volume: 600 Sputum Amount: Small PEEP: 5.0 PIP: 35 Tube Feeding Amount: 60 I&O: Intake and Output 01/24/18 01/25/18 19:00 07:00 Intake Total 3328.000 ml 870 ml Output Total 1745 ml 1990 ml Balance 1583.000 ml -1120 ml Free Water 80 ml 90 ml IV Total 2748.000 ml Tube Feeding 500 ml 780 ml Output Urine Total 1505 ml 1230 ml Stool Total 220 ml Drainage Total 240 ml 540 ml # Bowel Movements 4 3 Labs: Laboratory Tests Test 01/24/18 11:55 01/24/18 17:10 01/25/18 05:50 01/25/18 09:00 Vancomycin Level Trough 13.5 ug/mL (5.0-12.0) H Urine Color Pale yellow Urine Appearance Clear Urine pH 7 (4.5-8.0) Urine Specific [place] 1.010 (1.005-1.035) Urine Protein 1+ (NEGATIVE) H Urine Glucose (UA) Negative (NEGATIVE) Urine Ketones Negative (NEGATIVE) Urine Occult Blood 1+ (NEGATIVE) H Urine Nitrite Negative (NEGATIVE) Urine Bilirubin Negative (NEGATIVE) Urine Urobilinogen Normal MG/DL (0.0-1.0) Urine Leukocyte Esterase Negative (NEGATIVE) Urine RBC 2-4 /HPF (0 - 2) H Urine WBC 0-2 /HPF (0 - 2) Urine Squamous Epithelial Cells Few /LPF (NONE/OCC) Urine Bacteria Few /HPF (NONE) White Blood Count 28.9 K/UL (4.8-10.8) *H Red Blood Count 2.72 M/UL (4.20-5.40) L Hemoglobin 7.9 G/DL (12.0-16.0) L Hematocrit 24.5 % (37.0-47.0) L Mean Corpuscular Volume 90 FL (80-99) Mean Corpuscular Hemoglobin 29.1 PG (27.0-31.0) Mean Corpuscular Hemoglobin Concent 32.2 G/DL (32.0-36.0) Red Cell Distribution Width 11.8 % (11.6-14.8) Platelet Count 183 K/UL (150-450) Mean Platelet Volume 6.4 FL (6.5-10.1) L Neutrophils (%) (Auto) % (45.0-75.0) Lymphocytes (%) (Auto) % (20.0-45.0) Monocytes (%) (Auto) % (1.0-10.0) Eosinophils (%) (Auto) % (0.0-3.0) Basophils (%) (Auto) % (0.0-2.0) Differential Total Cells Counted 100 Neutrophils % (Manual) 82 % (45-75) H Lymphocytes % (Manual) 8 % (20-45) L Monocytes % (Manual) 9 % (1-10) Eosinophils % (Manual) 1 % (0-3) Basophils % (Manual) 0 % (0-2) Band Neutrophils 0 % (0-8) Platelet Estimate Adequate Platelet Morphology Normal Sodium Level 143 MMOL/L (136-145) Potassium Level 3.3 MMOL/L (3.5-5.1) L Chloride Level 114 MMOL/L (98-107) H Carbon Dioxide Level 19 MMOL/L (21-32) L Anion Gap 10 mmol/L (5-15) Blood Urea Nitrogen 14 mg/dL (7-18) Creatinine 1.3 MG/DL (0.55-1.30) Estimat Glomerular Filtration Rate 56.2 mL/min (>60) Glucose Level 102 MG/DL (74-106) Calcium Level 6.5 MG/DL (8.5-10.1) L Phosphorus Level 1.9 MG/DL (2.5-4.9) L Magnesium Level 1.6 MG/DL (1.8-2.4) L Total Bilirubin 0.2 MG/DL (0.2-1.0) Aspartate Amino Transf (AST/SGOT) 21 U/L (15-37) Alanine Aminotransferase (ALT/SGPT) 113 U/L (12-78) H Alkaline Phosphatase 119 U/L (46-116) H Total Creatine Kinase 84 U/L (26-308) Total Protein 4.6 G/DL (6.4-8.2) L Albumin 1.3 G/DL (3.4-5.0) L Globulin 3.3 g/dL Albumin/Globulin Ratio 0.4 (1.0-2.7) L Arterial Blood pH 7.384 (7.350-7.450) Arterial Blood Partial Pressure CO2 25.7 mmHg (35.0-45.0) L Arterial Blood Partial Pressure O2 101.3 mmHg (75.0-100.0) H Arterial Blood HCO3 15.0 mmol/L (22.0-26.0) L Arterial Blood Oxygen Saturation 97.1 % (92.0-98.0) Arterial Blood Base Excess -8.9 Benjie Test Positive Yanick Hernandez MD Jan 25, 2018 10:14
--- NOTE | 2018-01-25 11:10 | Internal Med Progress Note ---
Subjective Date of Service: Jan 25, 2018 Physician Name Adrian Porter Attending Physician Guillermo Morel MD Current Medications Medications (Trade) Dose Ordered Sig/Kel Route PRN Reason Start Time Stop Time Status Last Admin Dose Admin Acetaminophen (Tylenol) 650 mg Q4H PRN ORAL FEVER 01/18/18 13:00 02/17/18 08:59 Barium Sulfate (Readi-Cat 2) 450 ea NOW PRN ORAL Radiology Procedure 01/24/18 16:30 01/26/18 16:20 Chlorhexidine Gluconate (Neela-Hex 2%) 1 applic DAILY@2000 TOPIC 01/20/18 20:00 02/19/18 19:59 01/24/18 19:56 Dextrose (Dextrose 50%) 25 ml STAT PRN IV Hypoglycemia 01/19/18 07:15 02/17/18 07:14 Dextrose (Dextrose 50%) 50 ml STAT PRN IV Hypoglycemia 01/19/18 07:30 02/17/18 07:29 Dextrose/ Electrolytes 1,000 ml @ 100 mls/hr Q10H IV 01/23/18 09:00 02/22/18 08:59 01/25/18 01:48 Diatrizoate Meglum/ Diatrizoate Sod (Gastrografin) 30 ml NOW PRN ORAL Radiology Procedure 01/24/18 16:30 01/26/18 16:20 Diatrizoate Meglum/ Diatrizoate Sod (Gastrografin) 60 ml NOW PRN RECTAL Radiology Procedure 01/24/18 16:30 01/26/18 16:20 Heparin Sodium (Porcine) (Heparin 5000 units/ml) 5,000 units EVERY 12 HOURS SUBQ 01/18/18 21:00 02/17/18 08:59 01/25/18 08:59 Hydrocortisone (Solu-CORTEF) 50 mg EVERY 8 HOURS IV 01/22/18 14:00 02/19/18 21:59 01/25/18 05:41 Levetiracetam 100 ml @ 400 mls/hr Q12HR IVPB 01/18/18 22:30 02/17/18 22:29 01/25/18 08:52 Magnesium Sulfate 100 ml @ 100 mls/hr Q1H IVPB 01/25/18 09:00 01/25/18 12:59 01/25/18 10:12 Meropenem 1 gm/ Sodium Chloride 55 ml @ 110 mls/hr Q12H IVPB 01/18/18 19:30 01/27/18 19:29 01/25/18 08:30 Micafungin Sodium 100 mg/Sodium Chloride 110 ml @ 110 mls/hr Q24H IVPB 01/18/18 20:30 01/25/18 20:29 01/24/18 20:40 Ondansetron HCl (Zofran) 4 mg Q6H PRN IVP Nausea & Vomiting 01/18/18 13:15 02/17/18 07:14 01/22/18 01:17 Pantoprazole (Protonix) 40 mg Q12HR IV 01/19/18 21:00 02/17/18 08:59 01/25/18 08:45 Phenytoin 150 mg/ Sodium Chloride 58 ml @ 114 mls/hr EVERY 12 HOURS IVPB 01/18/18 22:30 02/17/18 22:29 01/25/18 10:00 Polyethylene Glycol (Miralax) 17 gm DAILYPRN PRN ORAL Constipation 01/19/18 07:15 02/17/18 07:14 Trimethoprim/ Sulfamethoxazole 20 ml/Dextrose 570 ml @ 380 mls/hr Q12H IV 01/22/18 23:00 01/29/18 22:59 01/25/18 00:16 Vancomycin HCl (Vanco rx to dose) 1 ea DAILY PRN MISC Per rx protocol 01/21/18 11:30 02/20/18 11:29 Vancomycin HCl 1 gm/Dextrose 275 ml @ 183.708 mls/hr Q24H IVPB 01/22/18 13:00 01/27/18 12:59 01/24/18 13:02 Allergies: Coded Allergies: No Known Allergies (Unverified , 01/18/15) ROS Limited/Unobtainable: Yes Subjective 37 YO F admitted with abdominal distention. S/P cardiac arrest. S/P exploratory laparotomy 01/19/18. S/P sigmoidectomy and hemicolectomy 01/21/18. Cover for Int Med-Dr Morel. Intubated and sedated. ICU Objective Last Vital Signs Date Time Temp Pulse Resp B/P (MAP) Pulse Ox O2 Delivery O2 Flow Rate FiO2 01/25/18 10:00 116 21 104/54 (71) 95 7/9/18 09:14 30 01/25/18 08:00 99.5 99.5 01/25/18 08:00 Mechanical Ventilator 01/21/18 19:00 30.0 Laboratory Tests Test 01/24/18 11:55 01/24/18 17:10 01/25/18 05:50 01/25/18 09:00 Vancomycin Level Trough 13.5 ug/mL (5.0-12.0) H Urine Color Pale yellow Urine Appearance Clear Urine pH 7 (4.5-8.0) Urine Specific [place] 1.010 (1.005-1.035) Urine Protein 1+ (NEGATIVE) H Urine Glucose (UA) Negative (NEGATIVE) Urine Ketones Negative (NEGATIVE) Urine Occult Blood 1+ (NEGATIVE) H Urine Nitrite Negative (NEGATIVE) Urine Bilirubin Negative (NEGATIVE) Urine Urobilinogen Normal MG/DL (0.0-1.0) Urine Leukocyte Esterase Negative (NEGATIVE) Urine RBC 2-4 /HPF (0 - 2) H Urine WBC 0-2 /HPF (0 - 2) Urine Squamous Epithelial Cells Few /LPF (NONE/OCC) Urine Bacteria Few /HPF (NONE) White Blood Count 28.9 K/UL (4.8-10.8) *H Red Blood Count 2.72 M/UL (4.20-5.40) L Hemoglobin 7.9 G/DL (12.0-16.0) L Hematocrit 24.5 % (37.0-47.0) L Mean Corpuscular Volume 90 FL (80-99) Mean Corpuscular Hemoglobin 29.1 PG (27.0-31.0) Mean Corpuscular Hemoglobin Concent 32.2 G/DL (32.0-36.0) Red Cell Distribution Width 11.8 % (11.6-14.8) Platelet Count 183 K/UL (150-450) Mean Platelet Volume 6.4 FL (6.5-10.1) L Neutrophils (%) (Auto) % (45.0-75.0) Lymphocytes (%) (Auto) % (20.0-45.0) Monocytes (%) (Auto) % (1.0-10.0) Eosinophils (%) (Auto) % (0.0-3.0) Basophils (%) (Auto) % (0.0-2.0) Differential Total Cells Counted 100 Neutrophils % (Manual) 82 % (45-75) H Lymphocytes % (Manual) 8 % (20-45) L Monocytes % (Manual) 9 % (1-10) Eosinophils % (Manual) 1 % (0-3) Basophils % (Manual) 0 % (0-2) Band Neutrophils 0 % (0-8) Platelet Estimate Adequate Platelet Morphology Normal Sodium Level 143 MMOL/L (136-145) Potassium Level 3.3 MMOL/L (3.5-5.1) L Chloride Level 114 MMOL/L (98-107) H Carbon Dioxide Level 19 MMOL/L (21-32) L Anion Gap 10 mmol/L (5-15) Blood Urea Nitrogen 14 mg/dL (7-18) Creatinine 1.3 MG/DL (0.55-1.30) Estimat Glomerular Filtration Rate 56.2 mL/min (>60) Glucose Level 102 MG/DL (74-106) Calcium Level 6.5 MG/DL (8.5-10.1) L Phosphorus Level 1.9 MG/DL (2.5-4.9) L Magnesium Level 1.6 MG/DL (1.8-2.4) L Total Bilirubin 0.2 MG/DL (0.2-1.0) Aspartate Amino Transf (AST/SGOT) 21 U/L (15-37) Alanine Aminotransferase (ALT/SGPT) 113 U/L (12-78) H Alkaline Phosphatase 119 U/L (46-116) H Total Creatine Kinase 84 U/L (26-308) Total Protein 4.6 G/DL (6.4-8.2) L Albumin 1.3 G/DL (3.4-5.0) L Globulin 3.3 g/dL Albumin/Globulin Ratio 0.4 (1.0-2.7) L Arterial Blood pH 7.384 (7.350-7.450) Arterial Blood Partial Pressure CO2 25.7 mmHg (35.0-45.0) L Arterial Blood Partial Pressure O2 101.3 mmHg (75.0-100.0) H Arterial Blood HCO3 15.0 mmol/L (22.0-26.0) L Arterial Blood Oxygen Saturation 97.1 % (92.0-98.0) Arterial Blood Base Excess -8.9 Benjie Test Positive Intake and Output 7/8/18 7/9/18 19:00 07:00 Intake Total 3328.000 ml 870 ml Output Total 1745 ml 1990 ml Balance 1583.000 ml -1120 ml Free Water 80 ml 90 ml IV Total 2748.000 ml Tube Feeding 500 ml 780 ml Output Urine Total 1505 ml 1230 ml Stool Total 220 ml Drainage Total 240 ml 540 ml # Bowel Movements 4 3 Objective General Appearance: WD/WN, lethargic EENT: normal ENT inspection Neck: non-tender, normal alignment, supple, other - tracheostomy Cardiovascular: normal peripheral pulses, normal rate, regular rhythm, regularly irregular, no gallop/murmur, no JVD Respiratory/Chest: Mech vent; chest wall non-tender, no accessory muscle use, rhonchi - bilaterally, other - Mech Vent Abdomen: normal bowel sounds, non tender, soft, no organomegaly, no mass Extremities: normal inspection Skin: normal pigmentation, warm/dry Assessment/Plan Problem List: (1) Incarcerated ventral hernia Assessment & Plan: S/P exploratory laparotomy on 01/19/18-see surgery note. S/P sigmoidectomy, omentectomy and hemicolectomy on 01/21/18. Continue bactrim, vanco and meropenem per ID (2) Volvulus of sigmoid colon (3) Abdominal distension Assessment & Plan: Resolving-see surgery note. (4) Cardiac arrest Assessment & Plan: see cardiology note (5) Seizure disorder Assessment & Plan: Continue keppra and dilantin (6) Anemia (7) Hypertension Assessment & Plan: Hypotensived. Currently on pressors. (8) Encephalopathy (9) Dysphagia Status: not improved Assessment/Plan prognosis is guarded. Adrian Porter MD Jan 25, 2018 11:10
--- NOTE | 2018-01-25 11:32 | Cardiology Progress Note ---
Assessment/Plan Status: stable Assessment/Plan (1) Acute on chronic respiratory failure (2) Sepsis (3) Anoxic brain injury (4) Feeding by G-tube (5) Tachycardia (6) S/P exploratory laparotomy, left hemicolectomy Re-culture blood Continue Abx Notified surgery CT abdomen reviewed Continue respiratory support G tube to suction, feels held Wound care per surgery Replete electrolytes IV stress dose steroids Albumin prn hypotension Weaned pressors Echo reviewed - stable, no heart failure Poor prognosis Subjective Cardiovascular: Reports: no symptoms Respiratory: Reports: no symptoms Gastrointestinal/Abdominal: Reports: no symptoms Genitourinary: Reports: no symptoms Subjective WBC continues to be elevated H/H dropped Ostomy with output still tachycardia CT abdomen done with post operative ileus G tube on LIWS, no output Objective Last 24 Hour Vital Signs Date Time Temp Pulse Resp B/P (MAP) Pulse Ox O2 Delivery O2 Flow Rate FiO2 01/25/18 11:29 113 26 30 01/25/18 11:00 115 17 100/49 (66) 95 01/25/18 10:00 116 21 104/54 (71) 95 01/25/18 09:14 118 23 30 01/25/18 09:00 116 21 101/52 (68) 95 01/25/18 08:00 99.5 115 22 106/58 (74) 91 99.5 01/25/18 08:00 Mechanical Ventilator 01/25/18 08:00 30 01/25/18 07:23 113 24 30 01/25/18 07:00 115 22 109/63 (78) 90 01/25/18 06:00 107 22 110/60 (77) 100 01/25/18 05:19 111 22 30 01/25/18 05:00 110 24 111/62 (78) 100 01/25/18 04:00 99.4 110 19 97/50 (66) 100 99.4 01/25/18 04:00 106 01/25/18 04:00 Mechanical Ventilator 01/25/18 04:00 30 01/25/18 03:00 110 21 100/51 (67) 100 01/25/18 02:43 108 20 30 01/25/18 02:00 107 21 99/51 (67) 100 01/25/18 01:00 115 22 98/47 (64) 100 01/25/18 00:59 113 20 30 01/25/18 00:00 30 01/25/18 00:00 99.0 115 22 110/56 (74) 100 99.0 01/25/18 00:00 Mechanical Ventilator 01/25/18 00:00 115 01/24/18 23:17 109 24 30 01/24/18 23:00 109 22 118/60 (79) 100 01/24/18 22:00 106 24 125/65 (85) 99 01/24/18 21:07 117 20 30 01/24/18 21:00 106 24 120/74 (89) 99 01/24/18 20:00 30 01/24/18 20:00 Mechanical Ventilator 01/24/18 20:00 99.3 106 25 121/73 (89) 100 99.3 01/24/18 20:00 106 01/24/18 19:00 106 21 120/64 (82) 100 01/24/18 18:50 96 20 30 01/24/18 18:00 92 19 115/63 (80) 100 01/24/18 17:25 108 26 30 01/24/18 17:00 99 20 116/61 (79) 97 01/24/18 16:00 30 01/24/18 16:00 Mechanical Ventilator 01/24/18 16:00 98.7 100 12 123/71 (88) 98 98.7 01/24/18 16:00 97 01/24/18 15:07 89 23 30 01/24/18 15:00 79 122/69 01/24/18 15:00 97 24 120/60 (80) 100 01/24/18 14:00 79 21 122/69 (86) 100 01/24/18 13:00 105 26 117/67 (84) 100 01/24/18 12:49 100 24 30 01/24/18 12:00 98.6 101 24 119/65 (83) 100 98.6 01/24/18 12:00 Mechanical Ventilator 01/24/18 12:00 30 01/24/18 12:00 94 General Appearance: no apparent distress, on vent EENT: PERRL/EOMI Neck: non-tender Rhythm: ST Cardiovascular: normal peripheral pulses Respiratory/Chest: chest wall non-tender Abdomen: decreased bowel sounds Extremities: normal range of motion 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 Intake and Output 01/24/18 01/25/18 19:00 07:00 Intake Total 3328.000 ml 870 ml Output Total 1745 ml 1990 ml Balance 1583.000 ml -1120 ml Free Water 80 ml 90 ml IV Total 2748.000 ml Tube Feeding 500 ml 780 ml Output Urine Total 1505 ml 1230 ml Stool Total 220 ml Drainage Total 240 ml 540 ml # Bowel Movements 4 3 Laboratory Tests Test 01/24/18 11:55 01/24/18 17:10 01/25/18 05:50 01/25/18 09:00 Vancomycin Level Trough 13.5 ug/mL (5.0-12.0) H Urine Color Pale yellow Urine Appearance Clear Urine pH 7 (4.5-8.0) Urine Specific [place] 1.010 (1.005-1.035) Urine Protein 1+ (NEGATIVE) H Urine Glucose (UA) Negative (NEGATIVE) Urine Ketones Negative (NEGATIVE) Urine Occult Blood 1+ (NEGATIVE) H Urine Nitrite Negative (NEGATIVE) Urine Bilirubin Negative (NEGATIVE) Urine Urobilinogen Normal MG/DL (0.0-1.0) Urine Leukocyte Esterase Negative (NEGATIVE) Urine RBC 2-4 /HPF (0 - 2) H Urine WBC 0-2 /HPF (0 - 2) Urine Squamous Epithelial Cells Few /LPF (NONE/OCC) Urine Bacteria Few /HPF (NONE) White Blood Count 28.9 K/UL (4.8-10.8) *H Red Blood Count 2.72 M/UL (4.20-5.40) L Hemoglobin 7.9 G/DL (12.0-16.0) L Hematocrit 24.5 % (37.0-47.0) L Mean Corpuscular Volume 90 FL (80-99) Mean Corpuscular Hemoglobin 29.1 PG (27.0-31.0) Mean Corpuscular Hemoglobin Concent 32.2 G/DL (32.0-36.0) Red Cell Distribution Width 11.8 % (11.6-14.8) Platelet Count 183 K/UL (150-450) Mean Platelet Volume 6.4 FL (6.5-10.1) L Neutrophils (%) (Auto) % (45.0-75.0) Lymphocytes (%) (Auto) % (20.0-45.0) Monocytes (%) (Auto) % (1.0-10.0) Eosinophils (%) (Auto) % (0.0-3.0) Basophils (%) (Auto) % (0.0-2.0) Differential Total Cells Counted 100 Neutrophils % (Manual) 82 % (45-75) H Lymphocytes % (Manual) 8 % (20-45) L Monocytes % (Manual) 9 % (1-10) Eosinophils % (Manual) 1 % (0-3) Basophils % (Manual) 0 % (0-2) Band Neutrophils 0 % (0-8) Platelet Estimate Adequate Platelet Morphology Normal Sodium Level 143 MMOL/L (136-145) Potassium Level 3.3 MMOL/L (3.5-5.1) L Chloride Level 114 MMOL/L (98-107) H Carbon Dioxide Level 19 MMOL/L (21-32) L Anion Gap 10 mmol/L (5-15) Blood Urea Nitrogen 14 mg/dL (7-18) Creatinine 1.3 MG/DL (0.55-1.30) Estimat Glomerular Filtration Rate 56.2 mL/min (>60) Glucose Level 102 MG/DL (74-106) Calcium Level 6.5 MG/DL (8.5-10.1) L Phosphorus Level 1.9 MG/DL (2.5-4.9) L Magnesium Level 1.6 MG/DL (1.8-2.4) L Total Bilirubin 0.2 MG/DL (0.2-1.0) Aspartate Amino Transf (AST/SGOT) 21 U/L (15-37) Alanine Aminotransferase (ALT/SGPT) 113 U/L (12-78) H Alkaline Phosphatase 119 U/L (46-116) H Total Creatine Kinase 84 U/L (26-308) Total Protein 4.6 G/DL (6.4-8.2) L Albumin 1.3 G/DL (3.4-5.0) L Globulin 3.3 g/dL Albumin/Globulin Ratio 0.4 (1.0-2.7) L Arterial Blood pH 7.384 (7.350-7.450) Arterial Blood Partial Pressure CO2 25.7 mmHg (35.0-45.0) L Arterial Blood Partial Pressure O2 101.3 mmHg (75.0-100.0) H Arterial Blood HCO3 15.0 mmol/L (22.0-26.0) L Arterial Blood Oxygen Saturation 97.1 % (92.0-98.0) Arterial Blood Base Excess -8.9 Benjei Test Positive Rob Cote M.D. Jan 25, 2018 11:32
--- NOTE | 2018-01-25 11:38 | Nephrology Progress Note ---
Assessment/Plan Problem List: (1) Acute on chronic respiratory failure Assessment: ATN (2) Sepsis Assessment: shock (3) Seizure disorder (4) Anemia Assessment: worsened Assessment Septic shock now off pressors, hence Oliguria and acute renal failure s/p 2 OR visits , for peritonitis Cr lower Others: (1) Acute on chronic respiratory failure (2) Sepsis (3) Anoxic brain injury (4) Feeding by G-tube (5) Tachycardia Plan K supplement and Mag supp Hydrate, change IV to hypotonic favor transfusion for low H&H albumin bollous hydrocortisone Antibiotics monitor renal parameters Per ID Pulm Surg Subjective ROS Limited/Unobtainable: Yes Objective Objective Last 24 Hour Vital Signs Date Time Temp Pulse Resp B/P (MAP) Pulse Ox O2 Delivery O2 Flow Rate FiO2 01/25/18 11:29 113 26 30 01/25/18 11:00 115 17 100/49 (66) 95 01/25/18 10:00 116 21 104/54 (71) 95 01/25/18 09:14 118 23 30 01/25/18 09:00 116 21 101/52 (68) 95 01/25/18 08:00 99.5 115 22 106/58 (74) 91 99.5 01/25/18 08:00 Mechanical Ventilator 01/25/18 08:00 30 01/25/18 07:23 113 24 30 01/25/18 07:00 115 22 109/63 (78) 90 01/25/18 06:00 107 22 110/60 (77) 100 01/25/18 05:19 111 22 30 01/25/18 05:00 110 24 111/62 (78) 100 01/25/18 04:00 99.4 110 19 97/50 (66) 100 99.4 01/25/18 04:00 106 01/25/18 04:00 Mechanical Ventilator 01/25/18 04:00 30 01/25/18 03:00 110 21 100/51 (67) 100 01/25/18 02:43 108 20 30 01/25/18 02:00 107 21 99/51 (67) 100 01/25/18 01:00 115 22 98/47 (64) 100 01/25/18 00:59 113 20 30 01/25/18 00:00 30 01/25/18 00:00 99.0 115 22 110/56 (74) 100 99.0 7/9/18 00:00 Mechanical Ventilator 01/25/18 00:00 115 01/24/18 23:17 109 24 30 01/24/18 23:00 109 22 118/60 (79) 100 01/24/18 22:00 106 24 125/65 (85) 99 01/24/18 21:07 117 20 30 01/24/18 21:00 106 24 120/74 (89) 99 01/24/18 20:00 30 01/24/18 20:00 Mechanical Ventilator 01/24/18 20:00 99.3 106 25 121/73 (89) 100 99.3 01/24/18 20:00 106 01/24/18 19:00 106 21 120/64 (82) 100 01/24/18 18:50 96 20 30 01/24/18 18:00 92 19 115/63 (80) 100 01/24/18 17:25 108 26 30 01/24/18 17:00 99 20 116/61 (79) 97 01/24/18 16:00 30 01/24/18 16:00 Mechanical Ventilator 01/24/18 16:00 98.7 100 12 123/71 (88) 98 98.7 01/24/18 16:00 97 01/24/18 15:07 89 23 30 01/24/18 15:00 79 122/69 01/24/18 15:00 97 24 120/60 (80) 100 01/24/18 14:00 79 21 122/69 (86) 100 01/24/18 13:00 105 26 117/67 (84) 100 01/24/18 12:49 100 24 30 01/24/18 12:00 98.6 101 24 119/65 (83) 100 98.6 01/24/18 12:00 Mechanical Ventilator 01/24/18 12:00 30 01/24/18 12:00 94 Intake and Output 01/24/18 01/25/18 19:00 07:00 Intake Total 3328.000 ml 870 ml Output Total 1745 ml 1990 ml Balance 1583.000 ml -1120 ml Free Water 80 ml 90 ml IV Total 2748.000 ml Tube Feeding 500 ml 780 ml Output Urine Total 1505 ml 1230 ml Stool Total 220 ml Drainage Total 240 ml 540 ml # Bowel Movements 4 3 Laboratory Tests 01/24/18 11:55: Vancomycin Level Trough 13.5H 01/24/18 17:10: Urine Color Pale yellow, Urine Appearance Clear, Urine pH 7, Urine Specific [place] 1.010, Urine Protein 1+H, Urine Glucose (UA) Negative, Urine Ketones Negative, Urine Occult Blood 1+H, Urine Nitrite Negative, Urine Bilirubin Negative, Urine Urobilinogen Normal, Urine Leukocyte Esterase Negative, Urine RBC 2-4H, Urine WBC 0-2, Urine Squamous Epithelial Cells Few, Urine Bacteria Few 01/25/18 05:50: White Blood Count 28.9*H, Red Blood Count 2.72L, Hemoglobin 7.9L, Hematocrit 24.5L, Mean Corpuscular Volume 90, Mean Corpuscular Hemoglobin 29.1, Mean Corpuscular Hemoglobin Concent 32.2, Red Cell Distribution Width 11.8, Platelet Count 183, Mean Platelet Volume 6.4L, Neutrophils (%) (Auto) , Lymphocytes (%) ( Auto) , Monocytes (%) (Auto) , Eosinophils (%) (Auto) , Basophils (%) (Auto) , Differential Total Cells Counted 100, Neutrophils % (Manual) 82H, Lymphocytes % (Manual) 8L, Monocytes % (Manual) 9, Eosinophils % (Manual) 1, Basophils % ( Manual) 0, Band Neutrophils 0, Platelet Estimate Adequate, Platelet Morphology Normal, Sodium Level 143, Potassium Level 3.3L, Chloride Level 114H, Carbon Dioxide Level 19L, Anion Gap 10, Blood Urea Nitrogen 14, Creatinine 1.3, Estimat Glomerular Filtration Rate 56.2, Glucose Level 102, Calcium Level 6.5L, Phosphorus Level 1.9L, Magnesium Level 1.6L, Total Bilirubin 0.2, Aspartate Amino Transf (AST/SGOT) 21, Alanine Aminotransferase (ALT/SGPT) 113H, Alkaline Phosphatase 119H, Total Creatine Kinase 84, Total Protein 4.6L, Albumin 1.3L, Globulin 3.3, Albumin/Globulin Ratio 0.4L 01/25/18 09:00: Arterial Blood pH 7.384, Arterial Blood Partial Pressure CO2 25.7L, Arterial Blood Partial Pressure O2 101.3H, Arterial Blood HCO3 15.0L, Arterial Blood Oxygen Saturation 97.1, Arterial Blood Base Excess -8.9, Benjie Test Positive Height (Feet): 5 Height (Inches): 3.00 Weight (Pounds): 188 General Appearance: no apparent distress Neck: limited range of motion Respiratory/Chest: decreased breath sounds Abdomen: distended Objective no change LORRIE PERAZA Jan 25, 2018 11:38
[2018-01-25] MEDS ORDERED: metroNIDAZOLE 500mg tab ORAL SCH (12:00)
--- NOTE | 2018-01-25 12:21 | Infectious Diseases Prog Note ---
Assessment/Plan Assessment/Plan Assessment: Septic shock ; resolved after surgical exploration- 2ry intraabdominal source- (intra-abdominal peritonitis 2ry to malpositioned gastric feeding tube, incarcerated fat containing ventral hernia and likely sigmoid volvulus) --SP Re-exploration of abdomen, Sigmoid colectomy for volvulus, Takedown of splenic flexure, Left hemicolectomy, Creation of transverse colostomy, Abdominal closure 01/21 -OR findings: no further leakage of gastric contents or feeds. No bleeding. sigmoid colon remained significantly distended despite rectal tube placement and prior decompression. Sigmoid colon easily volvulized intraoperatively. --SP Exploratory laparotomy, Abdominal washout, G-tube replacement, wound vac placment, Excision of incarcerated ventral hernia, and Reduction of sigmoid volvulus 01/19 --no perforation or gross necrosis noted upon surgical exploration --abd fluid cx anerobic Neg; aerobic P -No obvious pathology on lungs on CXR. r/o UTI -Bcx 2/4 Diptheroids, 1/4 CONS (contaminants), Aerococcus sp (typically a urinary pathogen; S Vanco, Ceftriaxone, PNC), ?UTI (often is not isolated from urine culture given special media requirements) -u/a initial normal; repeat WBC 10-15, nit +, leuk +1 but sq cells mod ( contaminated); ucx NTD -CXR: Hyperlucent the upper abdomen. Free air not excluded. Correlate clinically. Distended bowel also noted. No acute disease within the chest. Tracheostomy Fever/leukocytosis; Fever resolved; leukocytosis worsening- r/o SONJA, Cdiff -01/24 u/a neg Bc xp sp cx p -CT chest/abd/p 01/24: Very limited examination due to the lack of intravenous and oral contrast administration. Status post recent abdominal surgery with open anterior abdominal incision still noted. No abscess. Suggestion of dilatation of multiple loops of small bowel, not evaluated well on this examination. Findings may be due to postoperative ileus. Obstruction is not excludable. Left lower quadrant ostomy noted. Small bilateral pleural effusions and posterior basal atelectasis. Tracheostomy, PICC line, gastrostomy, Rock catheter is in good position. Moderate fecal retention in the rectum which is distended. Anasarca. -CXR: Question of new pneumomediastinum along the left heart margin. Question whether the tracheostomy is appropriately sealed. Basilar opacities again noted, increased on the left. Some of this could be due to differences in positioning, but question increasing pleural fluid and associated atelectasis/consolidation. Right-sided opacity is stable. ?Pneumomediastinum Elevated CPK- likely 2ry to sepsis, Dapto possibly also contributing- resolved -Dapto d/c 01/21 POssible PNA- -CXR 01/21: Airspace disease versus atelectasis at the lung bases. Correlate clinically. Probable improvement in interstitial edema since the prior study. -sp cx MDR ABC ( S Bactrim, Tigecycline, Colistin, Polymixin B), E.coli #2 ( S. 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-tube 2014 [facility] resident Plan: -Continue IV Vancomycin abx d#8 and Micafungin #8 for sepsis and for bowel emmanuel coverage -01/21 SP Daptomycin #4 (d/c due to elevated CPK) -01/18 SP IV Vancomycin #1, Cefepime x1, Azithromycin x1, Zosyn x1 -Switch Meropenem #8 To Tigecycline for intra-abdominal and MDR ABC in sputum coverage -Continue PO Bactrim #4 to cover for MDR ABC given possible infiltrates in CXR and worsening WBC -f/u ucx, Bcx x2, sp cx -CDiff -f/u cx -Monitor CBC/BMP, temperatures -Trend WBC -Surgery following -wound care per hospital protocol -CBC, CMP, lipase, CRP am Thank you for this consultation. Will continue to follow along with you. Discussed with RN Subjective Allergies: Coded Allergies: No Known Allergies (Unverified , 01/18/15) Subjective afebrile WBC worsened fio2 30% Objective Vital Signs Last 24 Hour Vital Signs Date Time Temp Pulse Resp B/P (MAP) Pulse Ox O2 Delivery O2 Flow Rate FiO2 01/25/18 11:29 113 26 30 01/25/18 11:00 115 17 100/49 (66) 95 01/25/18 10:00 116 21 104/54 (71) 95 01/25/18 09:14 118 23 30 01/25/18 09:00 116 21 101/52 (68) 95 01/25/18 08:00 99.5 115 22 106/58 (74) 91 99.5 01/25/18 08:00 118 01/25/18 08:00 Mechanical Ventilator 01/25/18 08:00 30 01/25/18 07:23 113 24 30 01/25/18 07:00 115 22 109/63 (78) 90 01/25/18 06:00 107 22 110/60 (77) 100 01/25/18 05:19 111 22 30 01/25/18 05:00 110 24 111/62 (78) 100 01/25/18 04:00 99.4 110 19 97/50 (66) 100 99.4 01/25/18 04:00 106 01/25/18 04:00 Mechanical Ventilator 01/25/18 04:00 30 01/25/18 03:00 110 21 100/51 (67) 100 01/25/18 02:43 108 20 30 01/25/18 02:00 107 21 99/51 (67) 100 01/25/18 01:00 115 22 98/47 (64) 100 01/25/18 00:59 113 20 30 01/25/18 00:00 30 01/25/18 00:00 99.0 115 22 110/56 (74) 100 99.0 01/25/18 00:00 Mechanical Ventilator 01/25/18 00:00 115 01/24/18 23:17 109 24 30 01/24/18 23:00 109 22 118/60 (79) 100 01/24/18 22:00 106 24 125/65 (85) 99 01/24/18 21:07 117 20 30 01/24/18 21:00 106 24 120/74 (89) 99 01/24/18 20:00 30 01/24/18 20:00 Mechanical Ventilator 01/24/18 20:00 99.3 106 25 121/73 (89) 100 99.3 01/24/18 20:00 106 01/24/18 19:00 106 21 120/64 (82) 100 01/24/18 18:50 96 20 30 01/24/18 18:00 92 19 115/63 (80) 100 01/24/18 17:25 108 26 30 01/24/18 17:00 99 20 116/61 (79) 97 01/24/18 16:00 30 01/24/18 16:00 Mechanical Ventilator 01/24/18 16:00 98.7 100 12 123/71 (88) 98 98.7 01/24/18 16:00 97 01/24/18 15:07 89 23 30 01/24/18 15:00 79 122/69 01/24/18 15:00 97 24 120/60 (80) 100 01/24/18 14:00 79 21 122/69 (86) 100 01/24/18 13:00 105 26 117/67 (84) 100 01/24/18 12:49 100 24 30 Height (Feet): 5 Height (Inches): 3.00 Weight (Pounds): 188 Objective General Appearance: chronically ill HEENT: normocephalic, bilateral eye PERRL Neck: tracheotomy Respiratory: crackles, rhonchi Cardiovascular : tachycardia Gastrointestinal: Gtube present; significant abd distention with some grimacing upon palpation; diminished to absent bowel sounds Genitourinary: rock in place Musculoskeletal: other - contracted extremities Neurologic: other - nonverbal Skin: no rash or cellulitis Laboratory Tests Test 01/24/18 17:10 01/25/18 05:50 01/25/18 09:00 Urine Color Pale yellow Urine Appearance Clear Urine pH 7 (4.5-8.0) Urine Specific [place] 1.010 (1.005-1.035) Urine Protein 1+ (NEGATIVE) H Urine Glucose (UA) Negative (NEGATIVE) Urine Ketones Negative (NEGATIVE) Urine Occult Blood 1+ (NEGATIVE) H Urine Nitrite Negative (NEGATIVE) Urine Bilirubin Negative (NEGATIVE) Urine Urobilinogen Normal MG/DL (0.0-1.0) Urine Leukocyte Esterase Negative (NEGATIVE) Urine RBC 2-4 /HPF (0 - 2) H Urine WBC 0-2 /HPF (0 - 2) Urine Squamous Epithelial Cells Few /LPF (NONE/OCC) Urine Bacteria Few /HPF (NONE) White Blood Count 28.9 K/UL (4.8-10.8) *H Red Blood Count 2.72 M/UL (4.20-5.40) L Hemoglobin 7.9 G/DL (12.0-16.0) L Hematocrit 24.5 % (37.0-47.0) L Mean Corpuscular Volume 90 FL (80-99) Mean Corpuscular Hemoglobin 29.1 PG (27.0-31.0) Mean Corpuscular Hemoglobin Concent 32.2 G/DL (32.0-36.0) Red Cell Distribution Width 11.8 % (11.6-14.8) Platelet Count 183 K/UL (150-450) Mean Platelet Volume 6.4 FL (6.5-10.1) L Neutrophils (%) (Auto) % (45.0-75.0) Lymphocytes (%) (Auto) % (20.0-45.0) Monocytes (%) (Auto) % (1.0-10.0) Eosinophils (%) (Auto) % (0.0-3.0) Basophils (%) (Auto) % (0.0-2.0) Differential Total Cells Counted 100 Neutrophils % (Manual) 82 % (45-75) H Lymphocytes % (Manual) 8 % (20-45) L Monocytes % (Manual) 9 % (1-10) Eosinophils % (Manual) 1 % (0-3) Basophils % (Manual) 0 % (0-2) Band Neutrophils 0 % (0-8) Platelet Estimate Adequate Platelet Morphology Normal Sodium Level 143 MMOL/L (136-145) Potassium Level 3.3 MMOL/L (3.5-5.1) L Chloride Level 114 MMOL/L (98-107) H Carbon Dioxide Level 19 MMOL/L (21-32) L Anion Gap 10 mmol/L (5-15) Blood Urea Nitrogen 14 mg/dL (7-18) Creatinine 1.3 MG/DL (0.55-1.30) Estimat Glomerular Filtration Rate 56.2 mL/min (>60) Glucose Level 102 MG/DL (74-106) Calcium Level 6.5 MG/DL (8.5-10.1) L Phosphorus Level 1.9 MG/DL (2.5-4.9) L Magnesium Level 1.6 MG/DL (1.8-2.4) L Total Bilirubin 0.2 MG/DL (0.2-1.0) Aspartate Amino Transf (AST/SGOT) 21 U/L (15-37) Alanine Aminotransferase (ALT/SGPT) 113 U/L (12-78) H Alkaline Phosphatase 119 U/L (46-116) H Total Creatine Kinase 84 U/L (26-308) Total Protein 4.6 G/DL (6.4-8.2) L Albumin 1.3 G/DL (3.4-5.0) L Globulin 3.3 g/dL Albumin/Globulin Ratio 0.4 (1.0-2.7) L Arterial Blood pH 7.384 (7.350-7.450) Arterial Blood Partial Pressure CO2 25.7 mmHg (35.0-45.0) L Arterial Blood Partial Pressure O2 101.3 mmHg (75.0-100.0) H Arterial Blood HCO3 15.0 mmol/L (22.0-26.0) L Arterial Blood Oxygen Saturation 97.1 % (92.0-98.0) Arterial Blood Base Excess -8.9 Benjie Test Positive Current Medications Medications (Trade) Dose Ordered Sig/Kel Route PRN Reason Start Time Stop Time Status Last Admin Dose Admin Acetaminophen (Tylenol) 650 mg Q4H PRN ORAL FEVER 01/18/18 13:00 02/17/18 08:59 Barium Sulfate (Readi-Cat 2) 450 ea NOW PRN ORAL Radiology Procedure 01/24/18 16:30 01/26/18 16:20 Chlorhexidine Gluconate (Neela-Hex 2%) 1 applic DAILY@2000 TOPIC 01/20/18 20:00 02/19/18 19:59 01/24/18 19:56 Dextrose (Dextrose 50%) 25 ml STAT PRN IV Hypoglycemia 01/19/18 07:15 02/17/18 07:14 Dextrose (Dextrose 50%) 50 ml STAT PRN IV Hypoglycemia 01/19/18 07:30 02/17/18 07:29 Diatrizoate Meglum/ Diatrizoate Sod (Gastrografin) 30 ml NOW PRN ORAL Radiology Procedure 01/24/18 16:30 01/26/18 16:20 Diatrizoate Meglum/ Diatrizoate Sod (Gastrografin) 60 ml NOW PRN RECTAL Radiology Procedure 01/24/18 16:30 01/26/18 16:20 Heparin Sodium (Porcine) (Heparin 5000 units/ml) 5,000 units EVERY 12 HOURS SUBQ 01/18/18 21:00 02/17/18 08:59 01/25/18 08:59 Levetiracetam 100 ml @ 400 mls/hr Q12HR IVPB 01/18/18 22:30 02/17/18 22:29 01/25/18 08:52 Magnesium Sulfate 100 ml @ 100 mls/hr Q1H IVPB 01/25/18 09:00 01/25/18 12:59 01/25/18 10:12 Meropenem 1 gm/ Sodium Chloride 55 ml @ 110 mls/hr Q12H IVPB 01/18/18 19:30 01/27/18 19:29 01/25/18 08:30 Metronidazole (Flagyl) 500 mg Q6HR ORAL 01/25/18 12:00 02/01/18 11:59 Micafungin Sodium 100 mg/Sodium Chloride 110 ml @ 110 mls/hr Q24H IVPB 01/18/18 20:30 01/25/18 20:29 01/24/18 20:40 Ondansetron HCl (Zofran) 4 mg Q6H PRN IVP Nausea & Vomiting 01/18/18 13:15 02/17/18 07:14 01/22/18 01:17 Pantoprazole (Protonix) 40 mg Q12HR IV 01/19/18 21:00 02/17/18 08:59 01/25/18 08:45 Phenytoin 150 mg/ Sodium Chloride 58 ml @ 114 mls/hr EVERY 12 HOURS IVPB 01/18/18 22:30 02/17/18 22:29 01/25/18 10:00 Polyethylene Glycol (Miralax) 17 gm DAILYPRN PRN ORAL Constipation 01/19/18 07:15 02/17/18 07:14 Trimethoprim/ Sulfamethoxazole 20 ml/Dextrose 570 ml @ 380 mls/hr Q12H IV 01/22/18 23:00 01/29/18 22:59 01/25/18 11:10 Vancomycin HCl (Vanco rx to dose) 1 ea DAILY PRN MISC Per rx protocol 01/21/18 11:30 02/20/18 11:29 Vancomycin HCl 1 gm/Dextrose 275 ml @ 183.708 mls/hr Q24H IVPB 01/22/18 13:00 01/27/18 12:59 01/24/18 13:02 Amelia Bah M.D. Jan 25, 2018 12:21
--- NOTE | 2018-01-25 12:39 | Diagnostic Imaging Report ---
Indication: Dyspnea Comparison: 01/24/2018 A single view chest radiograph was obtained. Findings: Small bilateral pleural effusion suspected on the left. Mild interstitial edema suspected. Tracheostomy and right central line is unchanged. 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
[2018-01-25] MEDS: Vancomycin 1gm/D5W 275ml IVPB SCH ×2 (13:08)
--- NOTE | 2018-01-25 13:34 | General Progress Note ---
Assessment/Plan Status: not improved, unchanged Assessment/Plan #. Leukocytosis, likely due to infection, peritonitis, now better --> The patient with lactic acidosis. Lactic acid 7.4. --> Currently on pressors. Rule out infectious etiology. --> On broad-spectrum antibiotics and antifungals. --> Closely monitor for improvement. #. Anemia currently due to blood loss from surgery in addition to hemodilution --> cr goal is >7 --> jak2 level pending under serology as she had erythroytosis on persentation --> anemia w/u has been reviewed #. Coagulopathy with inr 1.6 likely due to malnutrition v dic --> obtain a mixing study #. Septic shock, closely monitor, --> on antibiotics, broad spectrum. #. Seizure disorder, currently on antiseizure medication. #. Respiratory failure, status post trach and vent. #. Dysphagia, status post gastrostomy tube. Subjective Date patient seen: Jan 25, 2018 Hematologic/Lymphatic: Reports: anemia Allergies: Coded Allergies: No Known Allergies (Unverified , 01/18/15) All Systems: reviewed and negative except above Subjective Pt remains in ICU. Elevated wbc continues, on abx. Chest xr shows no change. Objective Last 24 Hour Vital Signs Date Time Temp Pulse Resp B/P (MAP) Pulse Ox O2 Delivery O2 Flow Rate FiO2 01/25/18 12:47 112 21 30 01/25/18 12:00 30 01/25/18 12:00 112 19 105/58 (74) 95 01/25/18 12:00 112 01/25/18 11:29 113 26 30 01/25/18 11:00 115 17 100/49 (66) 95 01/25/18 10:00 116 21 104/54 (71) 95 01/25/18 09:14 118 23 30 01/25/18 09:00 116 21 101/52 (68) 95 01/25/18 08:00 99.5 115 22 106/58 (74) 91 99.5 01/25/18 08:00 118 01/25/18 08:00 Mechanical Ventilator 01/25/18 08:00 30 01/25/18 07:23 113 24 30 01/25/18 07:00 115 22 109/63 (78) 90 01/25/18 06:00 107 22 110/60 (77) 100 01/25/18 05:19 111 22 30 01/25/18 05:00 110 24 111/62 (78) 100 01/25/18 04:00 99.4 110 19 97/50 (66) 100 99.4 01/25/18 04:00 106 01/25/18 04:00 Mechanical Ventilator 01/25/18 04:00 30 01/25/18 03:00 110 21 100/51 (67) 100 01/25/18 02:43 108 20 30 01/25/18 02:00 107 21 99/51 (67) 100 01/25/18 01:00 115 22 98/47 (64) 100 01/25/18 00:59 113 20 30 01/25/18 00:00 30 01/25/18 00:00 99.0 115 22 110/56 (74) 100 99.0 01/25/18 00:00 Mechanical Ventilator 01/25/18 00:00 115 01/24/18 23:17 109 24 30 01/24/18 23:00 109 22 118/60 (79) 100 01/24/18 22:00 106 24 125/65 (85) 99 01/24/18 21:07 117 20 30 01/24/18 21:00 106 24 120/74 (89) 99 01/24/18 20:00 30 01/24/18 20:00 Mechanical Ventilator 01/24/18 20:00 99.3 106 25 121/73 (89) 100 99.3 01/24/18 20:00 106 01/24/18 19:00 106 21 120/64 (82) 100 01/24/18 18:50 96 20 30 01/24/18 18:00 92 19 115/63 (80) 100 01/24/18 17:25 108 26 30 01/24/18 17:00 99 20 116/61 (79) 97 01/24/18 16:00 30 01/24/18 16:00 Mechanical Ventilator 01/24/18 16:00 98.7 100 12 123/71 (88) 98 98.7 01/24/18 16:00 97 01/24/18 15:07 89 23 30 01/24/18 15:00 79 122/69 01/24/18 15:00 97 24 120/60 (80) 100 01/24/18 14:00 79 21 122/69 (86) 100 Intake and Output 01/24/18 01/25/18 19:00 07:00 Intake Total 3328.000 ml 970 ml Output Total 1745 ml 1990 ml Balance 1583.000 ml -1020 ml Free Water 80 ml 90 ml IV Total 2748.000 ml 100 ml Tube Feeding 500 ml 780 ml Output Urine Total 1505 ml 1230 ml Stool Total 220 ml Drainage Total 240 ml 540 ml # Bowel Movements 4 3 Laboratory Tests 01/24/18 17:10: Urine Color Pale yellow, Urine Appearance Clear, Urine pH 7, Urine Specific [place] 1.010, Urine Protein 1+H, Urine Glucose (UA) Negative, Urine Ketones Negative, Urine Occult Blood 1+H, Urine Nitrite Negative, Urine Bilirubin Negative, Urine Urobilinogen Normal, Urine Leukocyte Esterase Negative, Urine RBC 2-4H, Urine WBC 0-2, Urine Squamous Epithelial Cells Few, Urine Bacteria Few 01/25/18 05:50: White Blood Count 28.9*H, Red Blood Count 2.72L, Hemoglobin 7.9L, Hematocrit 24.5L, Mean Corpuscular Volume 90, Mean Corpuscular Hemoglobin 29.1, Mean Corpuscular Hemoglobin Concent 32.2, Red Cell Distribution Width 11.8, Platelet Count 183, Mean Platelet Volume 6.4L, Neutrophils (%) (Auto) , Lymphocytes (%) ( Auto) , Monocytes (%) (Auto) , Eosinophils (%) (Auto) , Basophils (%) (Auto) , Differential Total Cells Counted 100, Neutrophils % (Manual) 82H, Lymphocytes % (Manual) 8L, Monocytes % (Manual) 9, Eosinophils % (Manual) 1, Basophils % ( Manual) 0, Band Neutrophils 0, Platelet Estimate Adequate, Platelet Morphology Normal, Sodium Level 143, Potassium Level 3.3L, Chloride Level 114H, Carbon Dioxide Level 19L, Anion Gap 10, Blood Urea Nitrogen 14, Creatinine 1.3, Estimat Glomerular Filtration Rate 56.2, Glucose Level 102, Calcium Level 6.5L, Phosphorus Level 1.9L, Magnesium Level 1.6L, Total Bilirubin 0.2, Aspartate Amino Transf (AST/SGOT) 21, Alanine Aminotransferase (ALT/SGPT) 113H, Alkaline Phosphatase 119H, Total Creatine Kinase 84, Total Protein 4.6L, Albumin 1.3L, Globulin 3.3, Albumin/Globulin Ratio 0.4L 01/25/18 09:00: Arterial Blood pH 7.384, Arterial Blood Partial Pressure CO2 25.7L, Arterial Blood Partial Pressure O2 101.3H, Arterial Blood HCO3 15.0L, Arterial Blood Oxygen Saturation 97.1, Arterial Blood Base Excess -8.9, Benjie Test Positive Height (Feet): 5 Height (Inches): 3.00 Weight (Pounds): 188 General Appearance: lethargic, confused EENT: PERRL/EOMI Neck: normal alignment Cardiovascular: tachycardia Respiratory/Chest: no respiratory distress Abdomen: no organomegaly Isaiah Noriega MD Jan 25, 2018 13:34
[2018-01-25] MEDS ORDERED: Tigecycline 100 MG in D5W 110 ML IVPB SCH (14:00)
--- NOTE | 2018-01-25 14:19 | General Surgery Progress Note ---
General Surgery-Progress Note Subjective Procedure Performed planned re-exploration of abdomen, sigmoid colectomy, takedown of splenic flexure, left hemicolectomy, creation of transverse colostomy, abdominal closure Objective Last 24 Hour Vital Signs Date Time Temp Pulse Resp B/P (MAP) Pulse Ox O2 Delivery O2 Flow Rate FiO2 01/25/18 12:47 112 21 30 01/25/18 12:00 30 01/25/18 12:00 112 19 105/58 (74) 95 01/25/18 12:00 Mechanical Ventilator 01/25/18 12:00 112 01/25/18 11:29 113 26 30 01/25/18 11:00 115 17 100/49 (66) 95 01/25/18 10:00 116 21 104/54 (71) 95 01/25/18 09:14 118 23 30 01/25/18 09:00 116 21 101/52 (68) 95 01/25/18 08:00 99.5 115 22 106/58 (74) 91 99.5 01/25/18 08:00 118 01/25/18 08:00 Mechanical Ventilator 01/25/18 08:00 30 01/25/18 07:23 113 24 30 01/25/18 07:00 115 22 109/63 (78) 90 01/25/18 06:00 107 22 110/60 (77) 100 01/25/18 05:19 111 22 30 01/25/18 05:00 110 24 111/62 (78) 100 01/25/18 04:00 99.4 110 19 97/50 (66) 100 99.4 01/25/18 04:00 106 01/25/18 04:00 Mechanical Ventilator 01/25/18 04:00 30 01/25/18 03:00 110 21 100/51 (67) 100 01/25/18 02:43 108 20 30 01/25/18 02:00 107 21 99/51 (67) 100 01/25/18 01:00 115 22 98/47 (64) 100 01/25/18 00:59 113 20 30 01/25/18 00:00 30 01/25/18 00:00 99.0 115 22 110/56 (74) 100 99.0 01/25/18 00:00 Mechanical Ventilator 01/25/18 00:00 115 01/24/18 23:17 109 24 30 01/24/18 23:00 109 22 118/60 (79) 100 01/24/18 22:00 106 24 125/65 (85) 99 01/24/18 21:07 117 20 30 01/24/18 21:00 106 24 120/74 (89) 99 01/24/18 20:00 30 01/24/18 20:00 Mechanical Ventilator 01/24/18 20:00 99.3 106 25 121/73 (89) 100 99.3 01/24/18 20:00 106 01/24/18 19:00 106 21 120/64 (82) 100 01/24/18 18:50 96 20 30 01/24/18 18:00 92 19 115/63 (80) 100 01/24/18 17:25 108 26 30 01/24/18 17:00 99 20 116/61 (79) 97 01/24/18 16:00 30 01/24/18 16:00 Mechanical Ventilator 01/24/18 16:00 98.7 100 12 123/71 (88) 98 98.7 01/24/18 16:00 97 01/24/18 15:07 89 23 30 01/24/18 15:00 79 122/69 01/24/18 15:00 97 24 120/60 (80) 100 I&O Intake and Output 01/24/18 01/25/18 19:00 07:00 Intake Total 3328.000 ml 970 ml Output Total 1745 ml 1990 ml Balance 1583.000 ml -1020 ml Free Water 80 ml 90 ml IV Total 2748.000 ml 100 ml Tube Feeding 500 ml 780 ml Output Urine Total 1505 ml 1230 ml Stool Total 220 ml Drainage Total 240 ml 540 ml # Bowel Movements 4 3 Dressing: saturated Wound: clean Drains: alec Cardiovascular: RSR Respiratory: clear Abdomen: soft, distended, present bowel sounds Extremities: no cyanosis Laboratory Tests Test 01/24/18 17:10 01/25/18 05:50 01/25/18 09:00 Urine Color Pale yellow Urine Appearance Clear Urine pH 7 (4.5-8.0) Urine Specific [place] 1.010 (1.005-1.035) Urine Protein 1+ (NEGATIVE) H Urine Glucose (UA) Negative (NEGATIVE) Urine Ketones Negative (NEGATIVE) Urine Occult Blood 1+ (NEGATIVE) H Urine Nitrite Negative (NEGATIVE) Urine Bilirubin Negative (NEGATIVE) Urine Urobilinogen Normal MG/DL (0.0-1.0) Urine Leukocyte Esterase Negative (NEGATIVE) Urine RBC 2-4 /HPF (0 - 2) H Urine WBC 0-2 /HPF (0 - 2) Urine Squamous Epithelial Cells Few /LPF (NONE/OCC) Urine Bacteria Few /HPF (NONE) White Blood Count 28.9 K/UL (4.8-10.8) *H Red Blood Count 2.72 M/UL (4.20-5.40) L Hemoglobin 7.9 G/DL (12.0-16.0) L Hematocrit 24.5 % (37.0-47.0) L Mean Corpuscular Volume 90 FL (80-99) Mean Corpuscular Hemoglobin 29.1 PG (27.0-31.0) Mean Corpuscular Hemoglobin Concent 32.2 G/DL (32.0-36.0) Red Cell Distribution Width 11.8 % (11.6-14.8) Platelet Count 183 K/UL (150-450) Mean Platelet Volume 6.4 FL (6.5-10.1) L Neutrophils (%) (Auto) % (45.0-75.0) Lymphocytes (%) (Auto) % (20.0-45.0) Monocytes (%) (Auto) % (1.0-10.0) Eosinophils (%) (Auto) % (0.0-3.0) Basophils (%) (Auto) % (0.0-2.0) Differential Total Cells Counted 100 Neutrophils % (Manual) 82 % (45-75) H Lymphocytes % (Manual) 8 % (20-45) L Monocytes % (Manual) 9 % (1-10) Eosinophils % (Manual) 1 % (0-3) Basophils % (Manual) 0 % (0-2) Band Neutrophils 0 % (0-8) Platelet Estimate Adequate Platelet Morphology Normal Sodium Level 143 MMOL/L (136-145) Potassium Level 3.3 MMOL/L (3.5-5.1) L Chloride Level 114 MMOL/L (98-107) H Carbon Dioxide Level 19 MMOL/L (21-32) L Anion Gap 10 mmol/L (5-15) Blood Urea Nitrogen 14 mg/dL (7-18) Creatinine 1.3 MG/DL (0.55-1.30) Estimat Glomerular Filtration Rate 56.2 mL/min (>60) Glucose Level 102 MG/DL (74-106) Calcium Level 6.5 MG/DL (8.5-10.1) L Phosphorus Level 1.9 MG/DL (2.5-4.9) L Magnesium Level 1.6 MG/DL (1.8-2.4) L Total Bilirubin 0.2 MG/DL (0.2-1.0) Aspartate Amino Transf (AST/SGOT) 21 U/L (15-37) Alanine Aminotransferase (ALT/SGPT) 113 U/L (12-78) H Alkaline Phosphatase 119 U/L (46-116) H Total Creatine Kinase 84 U/L (26-308) Total Protein 4.6 G/DL (6.4-8.2) L Albumin 1.3 G/DL (3.4-5.0) L Globulin 3.3 g/dL Albumin/Globulin Ratio 0.4 (1.0-2.7) L Arterial Blood pH 7.384 (7.350-7.450) Arterial Blood Partial Pressure CO2 25.7 mmHg (35.0-45.0) L Arterial Blood Partial Pressure O2 101.3 mmHg (75.0-100.0) H Arterial Blood HCO3 15.0 mmol/L (22.0-26.0) L Arterial Blood Oxygen Saturation 97.1 % (92.0-98.0) Arterial Blood Base Excess -8.9 Benjie Test Positive Assessment Post-op Diagnosis s/p exploratory laparotomy, abdominal washout, open abdomen Plan Problems: (1) Severe sepsis Assessment & Plan: 37F severe sepsis. etiology unknown. labs as above. radiology as above. arrested on arrival in ED and currently in ICU. CXR and KUB reviewed. question of possible free air. on KUB very stool filled bowel with dilated bowels On exam with incarcerated umbilical hernia, cannot determine if chronic, acute, bowel or fat. was able to reduce at bedside fortunately. Need CT scan but unfortunately too unstable for examination Warrants diagnostic laparoscopy vs exploration but given recent events, current condition, and history would not be safe and needs resuscitation first. would unlikely tolerate surgery. needs to respond to resuscitation first. likely very dehydrated given labs. s/p ex lap with open abdomen s/p re-ex lap 48hrs after for washout, bowel resection, ostomy, abd closure recovering labs reviewed HD stability improving drains with serous output ostomy viable with good output now tolerating tube feeds worsening leukocytosis. possible because of steroids. -IV fluids -IV Abx -trend labs -rock -drain care and management -packing and dressings to midline wound BID -ostomy care/bag will follow closely. unfortunately very poor prognosis. Marshall Ferguson Jan 25, 2018 14:19
--- NOTE | 2018-01-25 14:24 | Infectious Diseases Prog Note ---
Assessment/Plan Assessment/Plan Assessment: Septic shock ; resolved after surgical exploration- 2ry intraabdominal source- (intra-abdominal peritonitis 2ry to malpositioned gastric feeding tube, incarcerated fat containing ventral hernia and likely sigmoid volvulus) --SP Re-exploration of abdomen, Sigmoid colectomy for volvulus, Takedown of splenic flexure, Left hemicolectomy, Creation of transverse colostomy, Abdominal closure 01/21 -OR findings: no further leakage of gastric contents or feeds. No bleeding. sigmoid colon remained significantly distended despite rectal tube placement and prior decompression. Sigmoid colon easily volvulized intraoperatively. --SP Exploratory laparotomy, Abdominal washout, G-tube replacement, wound vac placment, Excision of incarcerated ventral hernia, and Reduction of sigmoid volvulus 01/19 --no perforation or gross necrosis noted upon surgical exploration --abd fluid cx NTD -No obvious pathology on lungs on CXR. r/o UTI -Bcx 2/4 Diptheroids, 1/4 CONS (contaminants), Aerococcus sp (typically a urinary pathogen), ?UTI (often is not isolated from urine culture given special media requirements) -u/a initial normal; repeat WBC 10-15, nit +, leuk +1 but sq cells mod ( contaminated); ucx NTD -sp cx MDR ABC ( S Bactrim), GNB#2 (likely colonizer) -CXR: Hyperlucent the upper abdomen. Free air not excluded. Correlate clinically. Distended bowel also noted. No acute disease within the chest. Tracheostomy Fever/leukocytosis; Fever resolved; leukocytosis worsening- r/o SONJA, intrabodminal abscess -CXR: Question of new pneumomediastinum along the left heart margin. Question whether the tracheostomy is appropriately sealed. Basilar opacities again noted, increased on the left. Some of this could be due to differences in positioning, but question increasing pleural fluid and associated atelectasis/consolidation. Right-sided opacity is stable. ?Pneumomediastinum Elevated CPK- likely 2ry to sepsis, Dapto possibly also contributing- resolved -Dapto d/c 01/21 ?PNA- -CXR 01/21: Airspace disease versus atelectasis at the lung bases. Correlate clinically. Probable improvement in interstitial edema since the prior study. 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 SNF resident Plan: -Continue IV Vancomycin abx d#8, Meropenem and Micafungin #8 for septic shock and for bowel emmanuel coverage -01/21 SP Daptomycin #4 (d/c due to elevated CPK) -01/18 SP IV Vancomycin #1, Cefepime x1, Azithromycin x1, Zosyn x1 -Continue PO Bactrim #4 to cover for MDR ABC given possible infiltrates in CXR and worsening WBC -Switch IV Flagyl to PO Vancomycin for cdiff coverage -Repeat u/a, ucx, Bcx x2, sp cx -CT chest/abd/p w/ PO contrast if taking PO to further evaluate possible pneumomediastinum on CXR and occult infection -f/u cx -Monitor CBC/BMP, temperatures -Trend WBC -Surgery following -wound care per hospital protocol -Cdiff Thank you for this consultation. Will continue to follow along with you. Discussed with RN Subjective Allergies: Coded Allergies: No Known Allergies (Unverified , 01/18/15) Subjective afebrile WBC worsened Objective Vital Signs Last 24 Hour Vital Signs Date Time Temp Pulse Resp B/P (MAP) Pulse Ox O2 Delivery O2 Flow Rate FiO2 01/25/18 11:29 113 26 30 01/25/18 11:00 115 17 100/49 (66) 95 01/25/18 10:00 116 21 104/54 (71) 95 01/25/18 09:14 118 23 30 01/25/18 09:00 116 21 101/52 (68) 95 01/25/18 08:00 99.5 115 22 106/58 (74) 91 99.5 01/25/18 08:00 118 01/25/18 08:00 Mechanical Ventilator 01/25/18 08:00 30 01/25/18 07:23 113 24 30 01/25/18 07:00 115 22 109/63 (78) 90 01/25/18 06:00 107 22 110/60 (77) 100 01/25/18 05:19 111 22 30 01/25/18 05:00 110 24 111/62 (78) 100 01/25/18 04:00 99.4 110 19 97/50 (66) 100 99.4 01/25/18 04:00 106 01/25/18 04:00 Mechanical Ventilator 01/25/18 04:00 30 01/25/18 03:00 110 21 100/51 (67) 100 01/25/18 02:43 108 20 30 01/25/18 02:00 107 21 99/51 (67) 100 01/25/18 01:00 115 22 98/47 (64) 100 01/25/18 00:59 113 20 30 01/25/18 00:00 30 01/25/18 00:00 99.0 115 22 110/56 (74) 100 99.0 01/25/18 00:00 Mechanical Ventilator 01/25/18 00:00 115 01/24/18 23:17 109 24 30 01/24/18 23:00 109 22 118/60 (79) 100 01/24/18 22:00 106 24 125/65 (85) 99 01/24/18 21:07 117 20 30 01/24/18 21:00 106 24 120/74 (89) 99 01/24/18 20:00 30 01/24/18 20:00 Mechanical Ventilator 01/24/18 20:00 99.3 106 25 121/73 (89) 100 99.3 01/24/18 20:00 106 01/24/18 19:00 106 21 120/64 (82) 100 01/24/18 18:50 96 20 30 01/24/18 18:00 92 19 115/63 (80) 100 01/24/18 17:25 108 26 30 01/24/18 17:00 99 20 116/61 (79) 97 01/24/18 16:00 30 01/24/18 16:00 Mechanical Ventilator 01/24/18 16:00 98.7 100 12 123/71 (88) 98 98.7 01/24/18 16:00 97 01/24/18 15:07 89 23 30 01/24/18 15:00 79 122/69 01/24/18 15:00 97 24 120/60 (80) 100 01/24/18 14:00 79 21 122/69 (86) 100 01/24/18 13:00 105 26 117/67 (84) 100 01/24/18 12:49 100 24 30 01/24/18 12:00 98.6 101 24 119/65 (83) 100 98.6 7/8/18 12:00 Mechanical Ventilator 01/24/18 12:00 30 01/24/18 12:00 94 Height (Feet): 5 Height (Inches): 3.00 Weight (Pounds): 188 Objective General Appearance: chronically ill HEENT: normocephalic, bilateral eye PERRL Neck: tracheotomy Respiratory: crackles, rhonchi Cardiovascular : tachycardia Gastrointestinal: Gtube present; significant abd distention with some grimacing upon palpation; diminished to absent bowel sounds Genitourinary: rock in place Musculoskeletal: other - contracted extremities Neurologic: other - nonverbal Skin: no rash or cellulitis Laboratory Tests Test 01/24/18 11:55 01/24/18 17:10 01/25/18 05:50 01/25/18 09:00 Vancomycin Level Trough 13.5 ug/mL (5.0-12.0) H Urine Color Pale yellow Urine Appearance Clear Urine pH 7 (4.5-8.0) Urine Specific [place] 1.010 (1.005-1.035) Urine Protein 1+ (NEGATIVE) H Urine Glucose (UA) Negative (NEGATIVE) Urine Ketones Negative (NEGATIVE) Urine Occult Blood 1+ (NEGATIVE) H Urine Nitrite Negative (NEGATIVE) Urine Bilirubin Negative (NEGATIVE) Urine Urobilinogen Normal MG/DL (0.0-1.0) Urine Leukocyte Esterase Negative (NEGATIVE) Urine RBC 2-4 /HPF (0 - 2) H Urine WBC 0-2 /HPF (0 - 2) Urine Squamous Epithelial Cells Few /LPF (NONE/OCC) Urine Bacteria Few /HPF (NONE) White Blood Count 28.9 K/UL (4.8-10.8) *H Red Blood Count 2.72 M/UL (4.20-5.40) L Hemoglobin 7.9 G/DL (12.0-16.0) L Hematocrit 24.5 % (37.0-47.0) L Mean Corpuscular Volume 90 FL (80-99) Mean Corpuscular Hemoglobin 29.1 PG (27.0-31.0) Mean Corpuscular Hemoglobin Concent 32.2 G/DL (32.0-36.0) Red Cell Distribution Width 11.8 % (11.6-14.8) Platelet Count 183 K/UL (150-450) Mean Platelet Volume 6.4 FL (6.5-10.1) L Neutrophils (%) (Auto) % (45.0-75.0) Lymphocytes (%) (Auto) % (20.0-45.0) Monocytes (%) (Auto) % (1.0-10.0) Eosinophils (%) (Auto) % (0.0-3.0) Basophils (%) (Auto) % (0.0-2.0) Differential Total Cells Counted 100 Neutrophils % (Manual) 82 % (45-75) H Lymphocytes % (Manual) 8 % (20-45) L Monocytes % (Manual) 9 % (1-10) Eosinophils % (Manual) 1 % (0-3) Basophils % (Manual) 0 % (0-2) Band Neutrophils 0 % (0-8) Platelet Estimate Adequate Platelet Morphology Normal Sodium Level 143 MMOL/L (136-145) Potassium Level 3.3 MMOL/L (3.5-5.1) L Chloride Level 114 MMOL/L (98-107) H Carbon Dioxide Level 19 MMOL/L (21-32) L Anion Gap 10 mmol/L (5-15) Blood Urea Nitrogen 14 mg/dL (7-18) Creatinine 1.3 MG/DL (0.55-1.30) Estimat Glomerular Filtration Rate 56.2 mL/min (>60) Glucose Level 102 MG/DL (74-106) Calcium Level 6.5 MG/DL (8.5-10.1) L Phosphorus Level 1.9 MG/DL (2.5-4.9) L Magnesium Level 1.6 MG/DL (1.8-2.4) L Total Bilirubin 0.2 MG/DL (0.2-1.0) Aspartate Amino Transf (AST/SGOT) 21 U/L (15-37) Alanine Aminotransferase (ALT/SGPT) 113 U/L (12-78) H Alkaline Phosphatase 119 U/L (46-116) H Total Creatine Kinase 84 U/L (26-308) Total Protein 4.6 G/DL (6.4-8.2) L Albumin 1.3 G/DL (3.4-5.0) L Globulin 3.3 g/dL Albumin/Globulin Ratio 0.4 (1.0-2.7) L Arterial Blood pH 7.384 (7.350-7.450) Arterial Blood Partial Pressure CO2 25.7 mmHg (35.0-45.0) L Arterial Blood Partial Pressure O2 101.3 mmHg (75.0-100.0) H Arterial Blood HCO3 15.0 mmol/L (22.0-26.0) L Arterial Blood Oxygen Saturation 97.1 % (92.0-98.0) Arterial Blood Base Excess -8.9 Benjie Test Positive Current Medications Medications (Trade) Dose Ordered Sig/Kel Route PRN Reason Start Time Stop Time Status Last Admin Dose Admin Acetaminophen (Tylenol) 650 mg Q4H PRN ORAL FEVER 01/18/18 13:00 02/17/18 08:59 Barium Sulfate (Readi-Cat 2) 450 ea NOW PRN ORAL Radiology Procedure 01/24/18 16:30 01/26/18 16:20 Chlorhexidine Gluconate (Neela-Hex 2%) 1 applic DAILY@2000 TOPIC 01/20/18 20:00 02/19/18 19:59 01/24/18 19:56 Dextrose (Dextrose 50%) 25 ml STAT PRN IV Hypoglycemia 01/19/18 07:15 02/17/18 07:14 Dextrose (Dextrose 50%) 50 ml STAT PRN IV Hypoglycemia 01/19/18 07:30 02/17/18 07:29 Dextrose/ Electrolytes 1,000 ml @ 100 mls/hr Q10H IV 01/23/18 09:00 02/22/18 08:59 01/25/18 01:48 Diatrizoate Meglum/ Diatrizoate Sod (Gastrografin) 30 ml NOW PRN ORAL Radiology Procedure 01/24/18 16:30 01/26/18 16:20 Diatrizoate Meglum/ Diatrizoate Sod (Gastrografin) 60 ml NOW PRN RECTAL Radiology Procedure 01/24/18 16:30 01/26/18 16:20 Heparin Sodium (Porcine) (Heparin 5000 units/ml) 5,000 units EVERY 12 HOURS SUBQ 01/18/18 21:00 02/17/18 08:59 01/25/18 08:59 Hydrocortisone (Solu-CORTEF) 50 mg EVERY 8 HOURS IV 01/22/18 14:00 02/19/18 21:59 01/25/18 05:41 Levetiracetam 100 ml @ 400 mls/hr Q12HR IVPB 01/18/18 22:30 02/17/18 22:29 01/25/18 08:52 Magnesium Sulfate 100 ml @ 100 mls/hr Q1H IVPB 01/25/18 09:00 01/25/18 12:59 01/25/18 10:12 Meropenem 1 gm/ Sodium Chloride 55 ml @ 110 mls/hr Q12H IVPB 01/18/18 19:30 01/27/18 19:29 01/25/18 08:30 Micafungin Sodium 100 mg/Sodium Chloride 110 ml @ 110 mls/hr Q24H IVPB 01/18/18 20:30 01/25/18 20:29 01/24/18 20:40 Ondansetron HCl (Zofran) 4 mg Q6H PRN IVP Nausea & Vomiting 01/18/18 13:15 02/17/18 07:14 01/22/18 01:17 Pantoprazole (Protonix) 40 mg Q12HR IV 01/19/18 21:00 02/17/18 08:59 01/25/18 08:45 Phenytoin 150 mg/ Sodium Chloride 58 ml @ 114 mls/hr EVERY 12 HOURS IVPB 01/18/18 22:30 02/17/18 22:29 01/25/18 10:00 Polyethylene Glycol (Miralax) 17 gm DAILYPRN PRN ORAL Constipation 01/19/18 07:15 02/17/18 07:14 Trimethoprim/ Sulfamethoxazole 20 ml/Dextrose 570 ml @ 380 mls/hr Q12H IV 01/22/18 23:00 01/29/18 22:59 01/25/18 11:10 Vancomycin HCl (Vanco rx to dose) 1 ea DAILY PRN MISC Per rx protocol 01/21/18 11:30 02/20/18 11:29 Vancomycin HCl 1 gm/Dextrose 275 ml @ 183.708 mls/hr Q24H IVPB 01/22/18 13:00 01/27/18 12:59 01/24/18 13:02 Amelia Bah M.D. Jan 25, 2018 14:24
[2018-01-25] MEDS: Vancomycin oral 125mg/2.5ml ORAL SCH ×2 (18:23→20:39)
[2018-01-25] MEDS: Dyna-Hex 2% Top Sol 2oz TOPIC SCH (19:48)
[2018-01-25] MEDS: Tigecycline 50 MG in D5W 110 ML IVPB SCH (23:48)
[2018-01-26] VITALS (24 sets, daily range): BP systolic 92–124; BP diastolic 49–79
[2018-01-26 06:45] LABS: HEMATOCRIT 25.8 % (37.0-47.0); HEMOGLOBIN 8.3 G/DL (12.0-16.0); MEAN CORPUSCULAR VOLUME 92 FL (80-99); PLATELET COUNT 200 K/UL (150-450)
[2018-01-26 06:58] LABS: ALANINE AMINOTRANSFERASE 80 U/L (12-78); ALBUMIN 1.3 G/DL (3.4-5.0); ALBUMIN/GLOBULIN RATIO 0.4 (1.0-2.7); ALKALINE PHOSPHATASE 108 U/L (46-116); ANION GAP 11 mmol/L (5-15); ASPARTATE AMINO TRANSFERASE 20 U/L (15-37); BILIRUBIN,TOTAL 0.2 MG/DL (0.2-1.0); BLOOD UREA NITROGEN 17 mg/dL (7-18); CALCIUM 6.7 MG/DL (8.5-10.1); CARBON DIOXIDE 20 MMOL/L (21-32); CHLORIDE 112 MMOL/L (98-107); CREATININE 1.2 MG/DL (0.55-1.30); POTASSIUM 3.4 MMOL/L (3.5-5.1); SODIUM 142 MMOL/L (136-145)
[2018-01-26 07:06] LABS: WHITE BLOOD COUNT 35.7 K/UL (4.8-10.8)
[2018-01-26] MEDS ORDERED: Phytonadione 10 mg/mL 1ml amp SUBQ SCH (08:00)
--- NOTE | 2018-01-26 08:11 | Nephrology Progress Note ---
Assessment/Plan Assessment/Plan 1. INDIRA- Cr stable, mutlifact ATN - Cr 1.2, monitor. Avoid nephrotoxins 2. Hypok+/Mg- replace 3. Resp FL:- intubated on the ventilator 4- Sepsis- abx -planned re-exploration of abdomen, sigmoid colectomy, takedown of splenic flexure, left hemicolectomy, creation of transverse colostomy, abdominal closure per gen surgery Subjective Date patient seen: Jan 26, 2018 Time patient seen: 08:09 ROS Limited/Unobtainable: Yes Allergies: Coded Allergies: No Known Allergies (Unverified , 01/18/15) All Systems: reviewed and negative except above Subjective Patient remains intubated on the vent Objective Last 24 Hour Vital Signs Date Time Temp Pulse Resp B/P (MAP) Pulse Ox O2 Delivery O2 Flow Rate FiO2 01/26/18 07:00 117 13 124/79 (94) 99 01/26/18 06:46 120 31 30 01/26/18 06:00 119 20 121/71 (88) 99 01/26/18 05:05 115 27 30 01/26/18 05:00 118 20 122/66 (84) 99 01/26/18 04:00 99.3 112 20 122/66 (84) 99 99.3 01/26/18 04:00 30 01/26/18 04:00 Mechanical Ventilator 01/26/18 04:00 118 01/26/18 03:25 118 24 30 01/26/18 03:00 125 23 119/65 (83) 99 01/26/18 02:00 125 25 119/65 (83) 98 01/26/18 01:23 121 20 30 01/26/18 01:00 99.5 121 24 119/65 (83) 98 99.5 01/26/18 00:48 99.0 01/26/18 00:00 30 01/26/18 00:00 Mechanical Ventilator 01/26/18 00:00 119 01/26/18 00:00 100.3 121 23 121/72 (88) 98 100.3 01/25/18 23:49 100.3 01/25/18 23:00 122 21 123/72 (89) 99 01/25/18 22:40 121 26 30 01/25/18 22:00 119 21 123/71 (88) 100 01/25/18 21:25 121 19 30 01/25/18 21:00 119 21 116/65 (82) 100 01/25/18 20:00 30 01/25/18 20:00 115 01/25/18 20:00 99.0 116 18 124/66 (85) 100 99.0 01/25/18 20:00 Mechanical Ventilator 01/25/18 19:28 112 25 30 01/25/18 19:00 115 18 116/65 (82) 100 01/25/18 18:00 111 17 119/64 (82) 100 01/25/18 17:04 113 26 30 01/25/18 17:00 110 17 119/67 (84) 100 01/25/18 16:00 115 14 116/64 (81) 100 01/25/18 16:00 30 01/25/18 16:00 114 01/25/18 16:00 Mechanical Ventilator 01/25/18 15:00 116 14 116/64 (81) 100 01/25/18 14:59 115 29 30 01/25/18 14:00 115 16 111/62 (78) 100 01/25/18 13:00 100.1 121 25 110/58 (75) 95 100.1 01/25/18 12:47 112 21 30 01/25/18 12:00 30 01/25/18 12:00 112 19 105/58 (74) 95 01/25/18 12:00 Mechanical Ventilator 01/25/18 12:00 112 01/25/18 11:29 113 26 30 01/25/18 11:00 115 17 100/49 (66) 95 01/25/18 10:00 116 21 104/54 (71) 95 01/25/18 09:14 118 23 30 01/25/18 09:00 116 21 101/52 (68) 95 Intake and Output 01/25/18 01/26/18 19:00 07:00 Intake Total 3766.416 ml 1658 ml Output Total 2465 ml 2330 ml Balance 1301.416 ml -672 ml IV Total 3046.416 ml 838 ml Tube Feeding 720 ml 720 ml Other 100 ml Output Urine Total 1695 ml 1600 ml Stool Total 250 ml 320 ml Drainage Total 520 ml 410 ml # Bowel Movements 3 3 Laboratory Tests 01/25/18 09:00: Arterial Blood pH 7.384, Arterial Blood Partial Pressure CO2 25.7L, Arterial Blood Partial Pressure O2 101.3H, Arterial Blood HCO3 15.0L, Arterial Blood Oxygen Saturation 97.1, Arterial Blood Base Excess -8.9, Benjie Test Positive 01/26/18 03:30: White Blood Count 35.7*H, Red Blood Count 2.80L, Hemoglobin 8.3L, Hematocrit 25.8L, Mean Corpuscular Volume 92, Mean Corpuscular Hemoglobin 29.6, Mean Corpuscular Hemoglobin Concent 32.2, Red Cell Distribution Width 12.0, Platelet Count 200, Mean Platelet Volume 6.2L, Neutrophils (%) (Auto) , Lymphocytes (%) ( Auto) , Monocytes (%) (Auto) , Eosinophils (%) (Auto) , Basophils (%) (Auto) , Neutrophils % (Manual) [Pending], Lymphocytes % (Manual) [Pending], Platelet Estimate [Pending], Platelet Morphology [Pending], Sodium Level 142, Potassium Level 3.4L, Chloride Level 112H, Carbon Dioxide Level 20L, Anion Gap 11, Blood Urea Nitrogen 17, Creatinine 1.2, Estimat Glomerular Filtration Rate > 60, Glucose Level 61L, Calcium Level 6.7L, Total Bilirubin 0.2, Aspartate Amino Transf (AST/SGOT) 20, Alanine Aminotransferase (ALT/SGPT) 80H, Alkaline Phosphatase 108, C-Reactive Protein, Quantitative 7.0H, Total Protein 4.9L, Albumin 1.3L, Globulin 3.6, Albumin/Globulin Ratio 0.4L, Lipase 1698H Height (Feet): 5 Height (Inches): 3.00 Weight (Pounds): 182 General Appearance: no apparent distress EENT: PERRL/EOMI Neck: normal alignment, supple Cardiovascular: normal rate, regular rhythm Respiratory/Chest: lungs clear, normal breath sounds Abdomen: non tender, soft Edema: no edema noted Arm (L), no edema noted Arm (R), no edema noted Leg (L), no edema noted Leg (R), no edema noted Pedal (L), no edema noted Pedal (R), no edema noted Generalized Raudel Jimenez M.D. Jan 26, 2018 08:11
[2018-01-26] MEDS: levETIRAcetam 1,000mg/NS100ml 100 ML IVPB SCH ×2 (08:48→20:46)
[2018-01-26] MEDS: NS IVPB SCH ×2 (09:44→20:46)
[2018-01-26] MEDS: PHENYTOIN IVPB SCH ×2 (09:44→20:46)
[2018-01-26] MEDS: Pantoprazole Inj IV SCH ×2 (09:45→20:45)
--- NOTE | 2018-01-26 09:45 | Infectious Diseases Prog Note ---
Assessment/Plan Assessment/Plan Assessment: Septic shock ; resolved after surgical exploration- 2ry intraabdominal source- (intra-abdominal peritonitis 2ry to malpositioned gastric feeding tube, incarcerated fat containing ventral hernia and likely sigmoid volvulus) --SP Re-exploration of abdomen, Sigmoid colectomy for volvulus, Takedown of splenic flexure, Left hemicolectomy, Creation of transverse colostomy, Abdominal closure 01/21 -OR findings: no further leakage of gastric contents or feeds. No bleeding. sigmoid colon remained significantly distended despite rectal tube placement and prior decompression. Sigmoid colon easily volvulized intraoperatively. --SP Exploratory laparotomy, Abdominal washout, G-tube replacement, wound vac placment, Excision of incarcerated ventral hernia, and Reduction of sigmoid volvulus 01/19 --no perforation or gross necrosis noted upon surgical exploration --abd fluid cx anerobic Neg; aerobic GNR #1 and #2 -No obvious pathology on lungs on CXR. r/o UTI -Bcx 2/4 Diptheroids, /4 CONS (contaminants), Aerococcus sp (typically a urinary pathogen; S Vanco, Ceftriaxone, PNC), ?UTI (often is not isolated from urine culture given special media requirements) -u/a initial normal; repeat WBC 10-15, nit +, leuk +1 but sq cells mod ( contaminated); ucx NTD -CXR: Hyperlucent the upper abdomen. Free air not excluded. Correlate clinically. Distended bowel also noted. No acute disease within the chest. Tracheostomy -CRP impoved (now 7) -Lipase ~1k Fever/leukocytosis; Fever resolved; leukocytosis worsening-Supect Cdiff ( increased foul smelling ostomy output, dilation of bowels, no obvious abscess on limited CT). Likely Pancreatitis (elevated Lipase) -01/24 u/a neg Bc xNTD sp cx GNRs -CT chest/abd/p 01/24: Very limited examination due to the lack of intravenous and oral contrast administration. Status post recent abdominal surgery with open anterior abdominal incision still noted. No abscess. Suggestion of dilatation of multiple loops of small bowel, not evaluated well on this examination. Findings may be due to postoperative ileus. Obstruction is not excludable. Left lower quadrant ostomy noted. Small bilateral pleural effusions and posterior basal atelectasis. Tracheostomy, PICC line, gastrostomy, Rock catheter is in good position. Moderate fecal retention in the rectum which is distended. Anasarca. -CXR: Question of new pneumomediastinum along the left heart margin. Question whether the tracheostomy is appropriately sealed. Basilar opacities again noted, increased on the left. Some of this could be due to differences in positioning, but question increasing pleural fluid and associated atelectasis/consolidation. Right-sided opacity is stable. ?Pneumomediastinum- not see on CT chest Elevated CPK- likely 2ry to sepsis, Dapto possibly also contributing- resolved -Dapto d/c 01/21 POssible PNA- -CXR 01/21: Airspace disease versus atelectasis at the lung bases. Correlate clinically. Probable improvement in interstitial edema since the prior study. -sp cx MDR ABC ( S Bactrim, Tigecycline, Colistin, Polymixin B), E.coli #2 ( S. 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-tube 2014 SNF resident Plan: -D/c IV Vancomycin abx d#9 as no gram positive isolation in cultures -Continue Micafungin #9 for sepsis and for bowel emmanuel coverage -01/25 SP Meropenem #8 -01/21 SP Daptomycin #4 (d/c due to elevated CPK) -01/18 SP IV Vancomycin #1, Cefepime x1, Azithromycin x1, Zosyn x1 -Continue Tigecycline #2 (abx d# 9) for intra-abdominal and MDR ABC in sputum coverage and synergistic for possible Cdiff -D/c PO Bactrim #5 (MDR ABC being covered by Tigecycline and to limit abx burden in the setting of possible Cdiff) -Continue empiric PO Vancomycin #2 and re-initiate IV Flagyl for suspected severe CDiff -f/u ucx, Bcx x2, sp cx, CDiff -f/u cx -Monitor CBC/BMP, temperatures -Trend WBC -Surgery following -wound care per hospital protocol Thank you for this consultation. Will continue to follow along with you. Discussed with RN and Dr Ferguson Subjective Allergies: Coded Allergies: No Known Allergies (Unverified , 01/18/15) Subjective afebrile WBC worsened fio2 30% Objective Vital Signs Last 24 Hour Vital Signs Date Time Temp Pulse Resp B/P (MAP) Pulse Ox O2 Delivery O2 Flow Rate FiO2 01/26/18 09:28 115 17 30 01/26/18 09:00 115 25 115/63 (80) 100 01/26/18 08:00 30 01/26/18 08:00 99.1 116 25 114/60 (78) 100 99.1 01/26/18 07:00 117 13 124/79 (94) 99 01/26/18 06:46 120 31 30 01/26/18 06:00 119 20 121/71 (88) 99 01/26/18 05:05 115 27 30 01/26/18 05:00 118 20 122/66 (84) 99 01/26/18 04:00 99.3 112 20 122/66 (84) 99 99.3 01/26/18 04:00 30 01/26/18 04:00 Mechanical Ventilator 01/26/18 04:00 118 01/26/18 03:25 118 24 30 01/26/18 03:00 125 23 119/65 (83) 99 01/26/18 02:00 125 25 119/65 (83) 98 01/26/18 01:23 121 20 30 01/26/18 01:00 99.5 121 24 119/65 (83) 98 99.5 01/26/18 00:48 99.0 01/26/18 00:00 30 01/26/18 00:00 Mechanical Ventilator 01/26/18 00:00 119 01/26/18 00:00 100.3 121 23 121/72 (88) 98 100.3 01/25/18 23:49 100.3 01/25/18 23:00 122 21 123/72 (89) 99 01/25/18 22:40 121 26 30 01/25/18 22:00 119 21 123/71 (88) 100 01/25/18 21:25 121 19 30 01/25/18 21:00 119 21 116/65 (82) 100 01/25/18 20:00 30 01/25/18 20:00 115 01/25/18 20:00 99.0 116 18 124/66 (85) 100 99.0 01/25/18 20:00 Mechanical Ventilator 01/25/18 19:28 112 25 30 01/25/18 19:00 115 18 116/65 (82) 100 01/25/18 18:00 111 17 119/64 (82) 100 01/25/18 17:04 113 26 30 01/25/18 17:00 110 17 119/67 (84) 100 01/25/18 16:00 115 14 116/64 (81) 100 01/25/18 16:00 30 01/25/18 16:00 114 01/25/18 16:00 Mechanical Ventilator 01/25/18 15:00 116 14 116/64 (81) 100 01/25/18 14:59 115 29 30 01/25/18 14:00 115 16 111/62 (78) 100 01/25/18 13:00 100.1 121 25 110/58 (75) 95 100.1 01/25/18 12:47 112 21 30 01/25/18 12:00 30 01/25/18 12:00 112 19 105/58 (74) 95 01/25/18 12:00 Mechanical Ventilator 01/25/18 12:00 112 01/25/18 11:29 113 26 30 01/25/18 11:00 115 17 100/49 (66) 95 01/25/18 10:00 116 21 104/54 (71) 95 Height (Feet): 5 Height (Inches): 3.00 Weight (Pounds): 182 Objective General Appearance: chronically ill HEENT: normocephalic, bilateral eye PERRL Neck: tracheotomy Respiratory: crackles, rhonchi Cardiovascular : tachycardia Gastrointestinal: Gtube present; significant abd distention with some grimacing upon palpation; diminished to absent bowel sounds Genitourinary: rock in place Musculoskeletal: other - contracted extremities Neurologic: other - nonverbal Skin: no rash or cellulitis Microbiology Date/Time Source Procedure Growth Status 01/24/18 18:00 Blood Blood Culture - Preliminary NO GROWTH AFTER 24 HOURS Resulted 01/24/18 17:10 Blood Blood Culture - Preliminary NO GROWTH AFTER 24 HOURS Resulted 01/24/18 17:10 Sputum Gram Stain Pending Resulted 01/24/18 17:10 Sputum Culture - Preliminary Gram Negative Bacillus 1 Resulted Laboratory Tests Test 01/26/18 03:30 White Blood Count 35.7 K/UL (4.8-10.8) *H Red Blood Count 2.80 M/UL (4.20-5.40) L Hemoglobin 8.3 G/DL (12.0-16.0) L Hematocrit 25.8 % (37.0-47.0) L Mean Corpuscular Volume 92 FL (80-99) Mean Corpuscular Hemoglobin 29.6 PG (27.0-31.0) Mean Corpuscular Hemoglobin Concent 32.2 G/DL (32.0-36.0) Red Cell Distribution Width 12.0 % (11.6-14.8) Platelet Count 200 K/UL (150-450) Mean Platelet Volume 6.2 FL (6.5-10.1) L Neutrophils (%) (Auto) % (45.0-75.0) Lymphocytes (%) (Auto) % (20.0-45.0) Monocytes (%) (Auto) % (1.0-10.0) Eosinophils (%) (Auto) % (0.0-3.0) Basophils (%) (Auto) % (0.0-2.0) Differential Total Cells Counted 100 Neutrophils % (Manual) 77 % (45-75) H Lymphocytes % (Manual) 11 % (20-45) L Monocytes % (Manual) 10 % (1-10) Eosinophils % (Manual) 1 % (0-3) Basophils % (Manual) 0 % (0-2) Band Neutrophils 1 % (0-8) Platelet Estimate Adequate Platelet Morphology Normal Hypochromasia 2+ Anisocytosis 1+ Sodium Level 142 MMOL/L (136-145) Potassium Level 3.4 MMOL/L (3.5-5.1) L Chloride Level 112 MMOL/L (98-107) H Carbon Dioxide Level 20 MMOL/L (21-32) L Anion Gap 11 mmol/L (5-15) Blood Urea Nitrogen 17 mg/dL (7-18) Creatinine 1.2 MG/DL (0.55-1.30) Estimat Glomerular Filtration Rate > 60 mL/min (>60) Glucose Level 61 MG/DL (74-106) L Calcium Level 6.7 MG/DL (8.5-10.1) L Total Bilirubin 0.2 MG/DL (0.2-1.0) Aspartate Amino Transf (AST/SGOT) 20 U/L (15-37) Alanine Aminotransferase (ALT/SGPT) 80 U/L (12-78) H Alkaline Phosphatase 108 U/L (46-116) C-Reactive Protein, Quantitative 7.0 mg/dL (0.00-0.90) H Total Protein 4.9 G/DL (6.4-8.2) L Albumin 1.3 G/DL (3.4-5.0) L Globulin 3.6 g/dL Albumin/Globulin Ratio 0.4 (1.0-2.7) L Lipase 1698 U/L (73-393) H Current Medications Medications (Trade) Dose Ordered Sig/Kel Route PRN Reason Start Time Stop Time Status Last Admin Dose Admin Acetaminophen (Tylenol) 650 mg Q4H PRN ORAL FEVER 01/18/18 13:00 02/17/18 08:59 01/25/18 23:49 Barium Sulfate (Readi-Cat 2) 450 ea NOW PRN ORAL Radiology Procedure 01/24/18 16:30 01/26/18 16:20 Chlorhexidine Gluconate (Neela-Hex 2%) 1 applic DAILY@2000 TOPIC 01/20/18 20:00 02/19/18 19:59 01/25/18 19:48 Dextrose (Dextrose 50%) 25 ml STAT PRN IV Hypoglycemia 01/19/18 07:15 02/17/18 07:14 Dextrose (Dextrose 50%) 50 ml STAT PRN IV Hypoglycemia 01/19/18 07:30 02/17/18 07:29 Diatrizoate Meglum/ Diatrizoate Sod (Gastrografin) 30 ml NOW PRN ORAL Radiology Procedure 01/24/18 16:30 01/26/18 16:20 Diatrizoate Meglum/ Diatrizoate Sod (Gastrografin) 60 ml NOW PRN RECTAL Radiology Procedure 01/24/18 16:30 01/26/18 16:20 Heparin Sodium (Porcine) (Heparin 5000 units/ml) 5,000 units EVERY 12 HOURS SUBQ 01/18/18 21:00 02/17/18 08:59 01/25/18 21:01 Levetiracetam 100 ml @ 400 mls/hr Q12HR IVPB 01/18/18 22:30 02/17/18 22:29 01/26/18 08:48 Ondansetron HCl (Zofran) 4 mg Q6H PRN IVP Nausea & Vomiting 01/18/18 13:15 02/17/18 07:14 01/22/18 01:17 Pantoprazole (Protonix) 40 mg Q12HR IV 01/19/18 21:00 02/17/18 08:59 01/25/18 20:39 Phenytoin 150 mg/ Sodium Chloride 58 ml @ 114 mls/hr EVERY 12 HOURS IVPB 01/18/18 22:30 02/17/18 22:29 01/25/18 20:40 Polyethylene Glycol (Miralax) 17 gm DAILYPRN PRN ORAL Constipation 01/19/18 07:15 02/17/18 07:14 Potassium Phosphate 15 mm/ Sodium Chloride 280 ml @ 46.667 mls/ hr ONCE ONCE IV 01/26/18 10:00 01/26/18 15:59 Tigecycline 50 mg/ Dextrose 110 ml @ 220 mls/hr EVERY 12 HOURS IVPB 01/25/18 23:00 02/01/18 22:59 01/25/18 23:48 Trimethoprim/ Sulfamethoxazole 20 ml/Dextrose 570 ml @ 380 mls/hr Q12H IV 01/22/18 23:00 01/29/18 22:59 01/25/18 23:48 Vancomycin HCl (Vanco rx to dose) 1 ea DAILY PRN MISC Per rx protocol 01/21/18 11:30 02/20/18 11:29 Vancomycin HCl (Vancomycin) 125 mg FOUR TIMES A DAY ORAL 01/25/18 18:00 02/01/18 17:59 01/25/18 20:39 Vancomycin HCl 1 gm/Dextrose 275 ml @ 183.708 mls/hr Q24H IVPB 01/22/18 13:00 01/27/18 12:59 01/25/18 13:08 Amelia Bah M.D. Jan 26, 2018 09:45
[2018-01-26] MEDS: Heparin 5000 units/ml inj SUBQ SCH ×2 (09:56→20:48)
[2018-01-26] MEDS ORDERED: Potassium Phosphate 15 MM in NS 275 ML IV ONE (10:00)
[2018-01-26] MEDS: Tigecycline 50 MG in D5W 110 ML IVPB SCH ×2 (10:15→20:47)
[2018-01-26 11:00] LABS: % IRON SATURATION 29 % (15-50); IRON 17 ug/dL (50-175); TOTAL IRON BINDING CAPACITY 58 ug/dL (250-450)
--- NOTE | 2018-01-26 11:03 | General Surgery Progress Note ---
General Surgery-Progress Note Subjective Procedure Performed planned re-exploration of abdomen, sigmoid colectomy, takedown of splenic flexure, left hemicolectomy, creation of transverse colostomy, abdominal closure Additional Comments low grade fevers, tachycardia, worsening leukocytosis Objective Last 24 Hour Vital Signs Date Time Temp Pulse Resp B/P (MAP) Pulse Ox O2 Delivery O2 Flow Rate FiO2 01/26/18 10:44 116 26 30 01/26/18 10:00 112 17 113/63 (80) 100 01/26/18 09:28 115 17 30 01/26/18 09:00 115 25 115/63 (80) 100 01/26/18 08:00 116 01/26/18 08:00 30 01/26/18 08:00 99.1 116 25 114/60 (78) 100 99.1 01/26/18 08:00 Mechanical Ventilator 01/26/18 07:00 117 13 124/79 (94) 99 01/26/18 06:46 120 31 30 01/26/18 06:00 119 20 121/71 (88) 99 01/26/18 05:05 115 27 30 01/26/18 05:00 118 20 122/66 (84) 99 01/26/18 04:00 99.3 112 20 122/66 (84) 99 99.3 01/26/18 04:00 30 01/26/18 04:00 Mechanical Ventilator 01/26/18 04:00 118 01/26/18 03:25 118 24 30 01/26/18 03:00 125 23 119/65 (83) 99 01/26/18 02:00 125 25 119/65 (83) 98 01/26/18 01:23 121 20 30 01/26/18 01:00 99.5 121 24 119/65 (83) 98 99.5 01/26/18 00:48 99.0 01/26/18 00:00 30 01/26/18 00:00 Mechanical Ventilator 01/26/18 00:00 119 01/26/18 00:00 100.3 121 23 121/72 (88) 98 100.3 01/25/18 23:49 100.3 01/25/18 23:00 122 21 123/72 (89) 99 01/25/18 22:40 121 26 30 01/25/18 22:00 119 21 123/71 (88) 100 01/25/18 21:25 121 19 30 01/25/18 21:00 119 21 116/65 (82) 100 01/25/18 20:00 30 01/25/18 20:00 115 01/25/18 20:00 99.0 116 18 124/66 (85) 100 99.0 01/25/18 20:00 Mechanical Ventilator 01/25/18 19:28 112 25 30 01/25/18 19:00 115 18 116/65 (82) 100 01/25/18 18:00 111 17 119/64 (82) 100 01/25/18 17:04 113 26 30 01/25/18 17:00 110 17 119/67 (84) 100 01/25/18 16:00 115 14 116/64 (81) 100 01/25/18 16:00 30 01/25/18 16:00 114 01/25/18 16:00 Mechanical Ventilator 01/25/18 15:00 116 14 116/64 (81) 100 01/25/18 14:59 115 29 30 01/25/18 14:00 115 16 111/62 (78) 100 01/25/18 13:00 100.1 121 25 110/58 (75) 95 100.1 01/25/18 12:47 112 21 30 01/25/18 12:00 30 01/25/18 12:00 112 19 105/58 (74) 95 01/25/18 12:00 Mechanical Ventilator 01/25/18 12:00 112 01/25/18 11:29 113 26 30 I&O Intake and Output 01/25/18 01/26/18 19:00 07:00 Intake Total 3766.416 ml 1658 ml Output Total 2465 ml 2330 ml Balance 1301.416 ml -672 ml IV Total 3046.416 ml 838 ml Tube Feeding 720 ml 720 ml Other 100 ml Output Urine Total 1695 ml 1600 ml Stool Total 250 ml 320 ml Drainage Total 520 ml 410 ml # Bowel Movements 3 3 Dressing: saturated Wound: clean Drains: alec Cardiovascular: RSR Respiratory: decreased breath sounds Abdomen: soft, distended, present bowel sounds Extremities: no cyanosis Laboratory Tests Test 01/26/18 03:30 01/26/18 08:30 White Blood Count 35.7 K/UL (4.8-10.8) *H Red Blood Count 2.80 M/UL (4.20-5.40) L Hemoglobin 8.3 G/DL (12.0-16.0) L Hematocrit 25.8 % (37.0-47.0) L Mean Corpuscular Volume 92 FL (80-99) Mean Corpuscular Hemoglobin 29.6 PG (27.0-31.0) Mean Corpuscular Hemoglobin Concent 32.2 G/DL (32.0-36.0) Red Cell Distribution Width 12.0 % (11.6-14.8) Platelet Count 200 K/UL (150-450) Mean Platelet Volume 6.2 FL (6.5-10.1) L Neutrophils (%) (Auto) % (45.0-75.0) Lymphocytes (%) (Auto) % (20.0-45.0) Monocytes (%) (Auto) % (1.0-10.0) Eosinophils (%) (Auto) % (0.0-3.0) Basophils (%) (Auto) % (0.0-2.0) Differential Total Cells Counted 100 Neutrophils % (Manual) 77 % (45-75) H Lymphocytes % (Manual) 11 % (20-45) L Monocytes % (Manual) 10 % (1-10) Eosinophils % (Manual) 1 % (0-3) Basophils % (Manual) 0 % (0-2) Band Neutrophils 1 % (0-8) Platelet Estimate Adequate Platelet Morphology Normal Hypochromasia 2+ Anisocytosis 1+ Sodium Level 142 MMOL/L (136-145) Potassium Level 3.4 MMOL/L (3.5-5.1) L Chloride Level 112 MMOL/L (98-107) H Carbon Dioxide Level 20 MMOL/L (21-32) L Anion Gap 11 mmol/L (5-15) Blood Urea Nitrogen 17 mg/dL (7-18) Creatinine 1.2 MG/DL (0.55-1.30) Estimat Glomerular Filtration Rate > 60 mL/min (>60) Glucose Level 61 MG/DL (74-106) L Calcium Level 6.7 MG/DL (8.5-10.1) L Total Bilirubin 0.2 MG/DL (0.2-1.0) Aspartate Amino Transf (AST/SGOT) 20 U/L (15-37) Alanine Aminotransferase (ALT/SGPT) 80 U/L (12-78) H Alkaline Phosphatase 108 U/L (46-116) C-Reactive Protein, Quantitative 7.0 mg/dL (0.00-0.90) H Total Protein 4.9 G/DL (6.4-8.2) L Albumin 1.3 G/DL (3.4-5.0) L Globulin 3.6 g/dL Albumin/Globulin Ratio 0.4 (1.0-2.7) L Lipase 1698 U/L (73-393) H Fibrinogen Pending Iron Level Pending Unsaturated Iron Binding Pending Ferritin Pending Carcinoembryonic Antigen Pending Folate Pending Homocystine Pending Assessment Post-op Diagnosis s/p exploratory laparotomy, abdominal washout, open abdomen Plan Problems: (1) Severe sepsis Assessment & Plan: 37F severe sepsis. etiology unknown. labs as above. radiology as above. arrested on arrival in ED and currently in ICU. CXR and KUB reviewed. question of possible free air. on KUB very stool filled bowel with dilated bowels On exam with incarcerated umbilical hernia, cannot determine if chronic, acute, bowel or fat. was able to reduce at bedside fortunately. Need CT scan but unfortunately too unstable for examination Warrants diagnostic laparoscopy vs exploration but given recent events, current condition, and history would not be safe and needs resuscitation first. would unlikely tolerate surgery. needs to respond to resuscitation first. likely very dehydrated given labs. s/p ex lap with open abdomen s/p re-ex lap 48hrs after for washout, bowel resection, ostomy, abd closure recovering labs reviewed HD stability improving drains with serous output - lower drain improved ostomy viable with good output now - loose stool tolerating tube feeds worsening leukocytosis. possible because of steroids. possible c diff. -IV fluids -IV Abx -trend labs -rock -drain care and management -packing and dressings to midline wound BID -ostomy care/bag will follow closely. unfortunately very poor prognosis. Marshall Ferguson Jan 26, 2018 11:03
[2018-01-26] MEDS: Vancomycin oral 125mg/2.5ml ORAL SCH ×4 (11:25→20:49)
[2018-01-26 11:26] LABS: FERRITIN 155 NG/ML (8-388)
--- NOTE | 2018-01-26 14:54 | Cardiology Progress Note ---
Assessment/Plan Status: not improved, deteriorating Assessment/Plan (1) Acute on chronic respiratory failure (2) Sepsis (3) Anoxic brain injury (4) Feeding by G-tube (5) Tachycardia (6) S/P exploratory laparotomy, left hemicolectomy Re-culture blood Follow up C.diff Continue Abxy CT abdomen reviewed Continue respiratory support G tube to suction, feels held Wound care per surgery Replete electrolytes Stress steroids stopped due to rising WBC Albumin prn hypotension Pressors off Echo reviewed - stable, no heart failure No indication to start beta blockers for tachycardia, will need to closely monitor hemodynamics in setting of sepsis Poor prognosis Subjective Cardiovascular: Reports: no symptoms Respiratory: Reports: no symptoms Gastrointestinal/Abdominal: Reports: no symptoms Genitourinary: Reports: no symptoms Subjective WBC continues to be elevated and ri sing, on broad abx H/H dropped Ostomy with output still - c.diff collected Remains tachycardic CT abdomen done with post operative ileus G tube on LIWS, no output Sputum cultures positive Objective Last 24 Hour Vital Signs Date Time Temp Pulse Resp B/P (MAP) Pulse Ox O2 Delivery O2 Flow Rate FiO2 01/26/18 14:46 121 19 30 01/26/18 12:39 113 19 30 01/26/18 12:00 Mechanical Ventilator 01/26/18 12:00 30 01/26/18 10:44 116 26 30 01/26/18 10:00 112 17 113/63 (80) 100 01/26/18 09:28 115 17 30 01/26/18 09:00 115 25 115/63 (80) 100 01/26/18 08:00 116 01/26/18 08:00 30 01/26/18 08:00 99.1 116 25 114/60 (78) 100 99.1 01/26/18 08:00 Mechanical Ventilator 01/26/18 07:00 117 13 124/79 (94) 99 01/26/18 06:46 120 31 30 01/26/18 06:00 119 20 121/71 (88) 99 01/26/18 05:05 115 27 30 01/26/18 05:00 118 20 122/66 (84) 99 01/26/18 04:00 99.3 112 20 122/66 (84) 99 99.3 01/26/18 04:00 30 01/26/18 04:00 Mechanical Ventilator 01/26/18 04:00 118 01/26/18 03:25 118 24 30 01/26/18 03:00 125 23 119/65 (83) 99 01/26/18 02:00 125 25 119/65 (83) 98 01/26/18 01:23 121 20 30 01/26/18 01:00 99.5 121 24 119/65 (83) 98 99.5 01/26/18 00:48 99.0 01/26/18 00:00 30 01/26/18 00:00 Mechanical Ventilator 01/26/18 00:00 119 01/26/18 00:00 100.3 121 23 121/72 (88) 98 100.3 01/25/18 23:49 100.3 01/25/18 23:00 122 21 123/72 (89) 99 01/25/18 22:40 121 26 30 01/25/18 22:00 119 21 123/71 (88) 100 01/25/18 21:25 121 19 30 01/25/18 21:00 119 21 116/65 (82) 100 01/25/18 20:00 30 01/25/18 20:00 115 01/25/18 20:00 99.0 116 18 124/66 (85) 100 99.0 01/25/18 20:00 Mechanical Ventilator 01/25/18 19:28 112 25 30 01/25/18 19:00 115 18 116/65 (82) 100 01/25/18 18:00 111 17 119/64 (82) 100 01/25/18 17:04 113 26 30 01/25/18 17:00 110 17 119/67 (84) 100 01/25/18 16:00 115 14 116/64 (81) 100 01/25/18 16:00 30 01/25/18 16:00 114 01/25/18 16:00 Mechanical Ventilator 01/25/18 15:00 116 14 116/64 (81) 100 01/25/18 14:59 115 29 30 General Appearance: no apparent distress, on vent EENT: PERRL/EOMI Neck: non-tender Rhythm: NSR Cardiovascular: normal peripheral pulses, normal rate Respiratory/Chest: chest wall non-tender Abdomen: normal bowel sounds Extremities: normal range of motion 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 Intake and Output 01/25/18 01/26/18 19:00 07:00 Intake Total 3766.416 ml 1658 ml Output Total 2465 ml 2330 ml Balance 1301.416 ml -672 ml IV Total 3046.416 ml 838 ml Tube Feeding 720 ml 720 ml Other 100 ml Output Urine Total 1695 ml 1600 ml Stool Total 250 ml 320 ml Drainage Total 520 ml 410 ml # Bowel Movements 3 3 Laboratory Tests Test 01/26/18 03:30 01/26/18 08:30 White Blood Count 35.7 K/UL (4.8-10.8) *H Red Blood Count 2.80 M/UL (4.20-5.40) L Hemoglobin 8.3 G/DL (12.0-16.0) L Hematocrit 25.8 % (37.0-47.0) L Mean Corpuscular Volume 92 FL (80-99) Mean Corpuscular Hemoglobin 29.6 PG (27.0-31.0) Mean Corpuscular Hemoglobin Concent 32.2 G/DL (32.0-36.0) Red Cell Distribution Width 12.0 % (11.6-14.8) Platelet Count 200 K/UL (150-450) Mean Platelet Volume 6.2 FL (6.5-10.1) L Neutrophils (%) (Auto) % (45.0-75.0) Lymphocytes (%) (Auto) % (20.0-45.0) Monocytes (%) (Auto) % (1.0-10.0) Eosinophils (%) (Auto) % (0.0-3.0) Basophils (%) (Auto) % (0.0-2.0) Differential Total Cells Counted 100 Neutrophils % (Manual) 77 % (45-75) H Lymphocytes % (Manual) 11 % (20-45) L Monocytes % (Manual) 10 % (1-10) Eosinophils % (Manual) 1 % (0-3) Basophils % (Manual) 0 % (0-2) Band Neutrophils 1 % (0-8) Platelet Estimate Adequate Platelet Morphology Normal Hypochromasia 2+ Anisocytosis 1+ Sodium Level 142 MMOL/L (136-145) Potassium Level 3.4 MMOL/L (3.5-5.1) L Chloride Level 112 MMOL/L (98-107) H Carbon Dioxide Level 20 MMOL/L (21-32) L Anion Gap 11 mmol/L (5-15) Blood Urea Nitrogen 17 mg/dL (7-18) Creatinine 1.2 MG/DL (0.55-1.30) Estimat Glomerular Filtration Rate > 60 mL/min (>60) Glucose Level 61 MG/DL (74-106) L Calcium Level 6.7 MG/DL (8.5-10.1) L Total Bilirubin 0.2 MG/DL (0.2-1.0) Aspartate Amino Transf (AST/SGOT) 20 U/L (15-37) Alanine Aminotransferase (ALT/SGPT) 80 U/L (12-78) H Alkaline Phosphatase 108 U/L (46-116) C-Reactive Protein, Quantitative 7.0 mg/dL (0.00-0.90) H Total Protein 4.9 G/DL (6.4-8.2) L Albumin 1.3 G/DL (3.4-5.0) L Globulin 3.6 g/dL Albumin/Globulin Ratio 0.4 (1.0-2.7) L Lipase 1698 U/L (73-393) H Fibrinogen 320 mg/dL (200-400) Iron Level 17 ug/dL (50-175) L Total Iron Binding Capacity 58 ug/dL (250-450) L Percent Iron Saturation 29 % (15-50) Unsaturated Iron Binding 41 ug/dL (112-346) L Ferritin 155 NG/ML (8-388) Carcinoembryonic Antigen Pending Folate 5.6 NG/ML (8.6-58.9) L Homocystine Pending Microbiology Date/Time Source Procedure Growth Status 01/24/18 18:00 Blood Blood Culture - Preliminary NO GROWTH AFTER 24 HOURS Resulted 01/24/18 17:10 Blood Blood Culture - Preliminary NO GROWTH AFTER 24 HOURS Resulted 01/24/18 17:10 Sputum Gram Stain - Final Resulted 01/24/18 17:10 Sputum Culture - Preliminary Gram Negative Bacillus 1 Resulted Rob Cote M.D. Jan 26, 2018 14:53
--- NOTE | 2018-01-26 16:53 | General Progress Note ---
Assessment/Plan Status: not improved, unchanged Assessment/Plan #. Leukocytosis, likely due to infection, peritonitis, now better --> The patient with lactic acidosis. Lactic acid 7.4. --> Currently on pressors. Rule out infectious etiology. --> On broad-spectrum antibiotics and antifungals. --> Closely monitor for improvement. #. Anemia currently due to blood loss from surgery in addition to hemodilution --> cr goal is >7 --> jak2 level pending under serology as she had erythroytosis on persentation --> anemia w/u has been reviewed #. Coagulopathy with inr 1.6 likely due to malnutrition v dic --> obtain a mixing study #. Septic shock, closely monitor, --> on antibiotics, broad spectrum. #. Seizure disorder, currently on antiseizure medication. #. Respiratory failure, status post trach and vent. #. Dysphagia, status post gastrostomy tube. The time the note was entered does not necessarily correspond to the time the patient was seen. Subjective Date patient seen: Jan 26, 2018 Hematologic/Lymphatic: Reports: anemia Allergies: Coded Allergies: No Known Allergies (Unverified , 01/18/15) All Systems: reviewed and negative except above Subjective Pt remains in ICU. Elevated wbc continues, on abx. Re-exploration of abd planned. Objective Last 24 Hour Vital Signs Date Time Temp Pulse Resp B/P (MAP) Pulse Ox O2 Delivery O2 Flow Rate FiO2 01/26/18 14:46 121 19 30 01/26/18 12:39 113 19 30 01/26/18 12:00 Mechanical Ventilator 01/26/18 12:00 30 01/26/18 10:44 116 26 30 01/26/18 10:00 112 17 113/63 (80) 100 01/26/18 09:28 115 17 30 01/26/18 09:00 115 25 115/63 (80) 100 01/26/18 08:00 116 01/26/18 08:00 30 01/26/18 08:00 99.1 116 25 114/60 (78) 100 99.1 01/26/18 08:00 Mechanical Ventilator 01/26/18 07:00 117 13 124/79 (94) 99 01/26/18 06:46 120 31 30 01/26/18 06:00 119 20 121/71 (88) 99 01/26/18 05:05 115 27 30 01/26/18 05:00 118 20 122/66 (84) 99 01/26/18 04:00 99.3 112 20 122/66 (84) 99 99.3 01/26/18 04:00 30 01/26/18 04:00 Mechanical Ventilator 01/26/18 04:00 118 01/26/18 03:25 118 24 30 01/26/18 03:00 125 23 119/65 (83) 99 01/26/18 02:00 125 25 119/65 (83) 98 01/26/18 01:23 121 20 30 01/26/18 01:00 99.5 121 24 119/65 (83) 98 99.5 01/26/18 00:48 99.0 01/26/18 00:00 30 01/26/18 00:00 Mechanical Ventilator 01/26/18 00:00 119 01/26/18 00:00 100.3 121 23 121/72 (88) 98 100.3 01/25/18 23:49 100.3 01/25/18 23:00 122 21 123/72 (89) 99 01/25/18 22:40 121 26 30 01/25/18 22:00 119 21 123/71 (88) 100 01/25/18 21:25 121 19 30 01/25/18 21:00 119 21 116/65 (82) 100 01/25/18 20:00 30 01/25/18 20:00 115 01/25/18 20:00 99.0 116 18 124/66 (85) 100 99.0 01/25/18 20:00 Mechanical Ventilator 01/25/18 19:28 112 25 30 01/25/18 19:00 115 18 116/65 (82) 100 01/25/18 18:00 111 17 119/64 (82) 100 01/25/18 17:04 113 26 30 01/25/18 17:00 110 17 119/67 (84) 100 Intake and Output 01/25/18 01/26/18 19:00 07:00 Intake Total 3766.416 ml 1658 ml Output Total 2465 ml 2330 ml Balance 1301.416 ml -672 ml IV Total 3046.416 ml 838 ml Tube Feeding 720 ml 720 ml Other 100 ml Output Urine Total 1695 ml 1600 ml Stool Total 250 ml 320 ml Drainage Total 520 ml 410 ml # Bowel Movements 3 3 Laboratory Tests 01/26/18 03:30: White Blood Count 35.7*H, Red Blood Count 2.80L, Hemoglobin 8.3L, Hematocrit 25.8L, Mean Corpuscular Volume 92, Mean Corpuscular Hemoglobin 29.6, Mean Corpuscular Hemoglobin Concent 32.2, Red Cell Distribution Width 12.0, Platelet Count 200, Mean Platelet Volume 6.2L, Neutrophils (%) (Auto) , Lymphocytes (%) ( Auto) , Monocytes (%) (Auto) , Eosinophils (%) (Auto) , Basophils (%) (Auto) , Differential Total Cells Counted 100, Neutrophils % (Manual) 77H, Lymphocytes % (Manual) 11L, Monocytes % (Manual) 10, Eosinophils % (Manual) 1, Basophils % ( Manual) 0, Band Neutrophils 1, Platelet Estimate Adequate, Platelet Morphology Normal, Hypochromasia 2+, Anisocytosis 1+, Sodium Level 142, Potassium Level 3.4L, Chloride Level 112H, Carbon Dioxide Level 20L, Anion Gap 11, Blood Urea Nitrogen 17, Creatinine 1.2, Estimat Glomerular Filtration Rate > 60, Glucose Level 61L, Calcium Level 6.7L, Total Bilirubin 0.2, Aspartate Amino Transf (AST/ SGOT) 20, Alanine Aminotransferase (ALT/SGPT) 80H, Alkaline Phosphatase 108, C- Reactive Protein, Quantitative 7.0H, Total Protein 4.9L, Albumin 1.3L, Globulin 3.6, Albumin/Globulin Ratio 0.4L, Lipase 1698H 01/26/18 08:30: Fibrinogen 320, Iron Level 17L, Total Iron Binding Capacity 58L, Percent Iron Saturation 29, Unsaturated Iron Binding 41L, Ferritin 155, Carcinoembryonic Antigen [Pending], Folate 5.6L, Homocystine [Pending] Height (Feet): 5 Height (Inches): 3.00 Weight (Pounds): 182 General Appearance: no apparent distress EENT: PERRL/EOMI Neck: normal alignment Cardiovascular: tachycardia Respiratory/Chest: no respiratory distress Abdomen: normal bowel sounds, no mass Isaiah Noriega MD Jan 26, 2018 16:53
--- NOTE | 2018-01-26 17:11 | Internal Med Progress Note ---
Subjective Date of Service: Jan 26, 2018 Physician Name Adrian Porter Attending Physician Guillermo Morel MD Current Medications Medications (Trade) Dose Ordered Sig/Kel Route PRN Reason Start Time Stop Time Status Last Admin Dose Admin Acetaminophen (Tylenol) 650 mg Q4H PRN ORAL FEVER 01/18/18 13:00 02/17/18 08:59 01/25/18 23:49 Chlorhexidine Gluconate (Neela-Hex 2%) 1 applic DAILY@2000 TOPIC 01/20/18 20:00 02/19/18 19:59 01/25/18 19:48 Dextrose (Dextrose 50%) 25 ml STAT PRN IV Hypoglycemia 01/19/18 07:15 02/17/18 07:14 Dextrose (Dextrose 50%) 50 ml STAT PRN IV Hypoglycemia 01/19/18 07:30 02/17/18 07:29 Heparin Sodium (Porcine) (Heparin 5000 units/ml) 5,000 units EVERY 12 HOURS SUBQ 01/18/18 21:00 02/17/18 08:59 01/26/18 09:56 Levetiracetam 100 ml @ 400 mls/hr Q12HR IVPB 01/18/18 22:30 02/17/18 22:29 01/26/18 08:48 Metronidazole 100 ml @ 100 mls/hr Q8HR IVPB 01/26/18 11:00 02/02/18 10:59 01/26/18 11:12 Micafungin Sodium 100 mg/Sodium Chloride 110 ml @ 110 mls/hr Q24H IVPB 01/26/18 20:30 02/02/18 20:29 Ondansetron HCl (Zofran) 4 mg Q6H PRN IVP Nausea & Vomiting 01/18/18 13:15 02/17/18 07:14 01/22/18 01:17 Pantoprazole (Protonix) 40 mg Q12HR IV 01/19/18 21:00 02/17/18 08:59 01/26/18 09:45 Phenytoin 150 mg/ Sodium Chloride 58 ml @ 114 mls/hr EVERY 12 HOURS IVPB 01/18/18 22:30 02/17/18 22:29 01/26/18 09:44 Polyethylene Glycol (Miralax) 17 gm DAILYPRN PRN ORAL Constipation 01/19/18 07:15 02/17/18 07:14 Tigecycline 50 mg/ Dextrose 110 ml @ 220 mls/hr EVERY 12 HOURS IVPB 01/25/18 23:00 02/01/18 22:59 01/26/18 10:15 Vancomycin HCl (Vancomycin) 125 mg FOUR TIMES A DAY ORAL 01/25/18 18:00 02/01/18 17:59 01/26/18 14:53 Allergies: Coded Allergies: No Known Allergies (Unverified , 01/18/15) ROS Limited/Unobtainable: Yes Subjective 37 YO F admitted with abdominal distention. S/P cardiac arrest. S/P exploratory laparotomy 01/19/18. S/P sigmoidectomy and hemicolectomy 01/21/18. Cover for Int Med-Dr Morel. Intubated and sedated. ICU Objective Last Vital Signs Date Time Temp Pulse Resp B/P (MAP) Pulse Ox O2 Delivery O2 Flow Rate FiO2 01/26/18 17:05 144 22 30 01/26/18 12:00 Mechanical Ventilator 01/26/18 10:00 113/63 (80) 100 01/26/18 08:00 99.1 99.1 01/21/18 19:00 30.0 Laboratory Tests Test 01/26/18 03:30 01/26/18 08:30 White Blood Count 35.7 K/UL (4.8-10.8) *H Red Blood Count 2.80 M/UL (4.20-5.40) L Hemoglobin 8.3 G/DL (12.0-16.0) L Hematocrit 25.8 % (37.0-47.0) L Mean Corpuscular Volume 92 FL (80-99) Mean Corpuscular Hemoglobin 29.6 PG (27.0-31.0) Mean Corpuscular Hemoglobin Concent 32.2 G/DL (32.0-36.0) Red Cell Distribution Width 12.0 % (11.6-14.8) Platelet Count 200 K/UL (150-450) Mean Platelet Volume 6.2 FL (6.5-10.1) L Neutrophils (%) (Auto) % (45.0-75.0) Lymphocytes (%) (Auto) % (20.0-45.0) Monocytes (%) (Auto) % (1.0-10.0) Eosinophils (%) (Auto) % (0.0-3.0) Basophils (%) (Auto) % (0.0-2.0) Differential Total Cells Counted 100 Neutrophils % (Manual) 77 % (45-75) H Lymphocytes % (Manual) 11 % (20-45) L Monocytes % (Manual) 10 % (1-10) Eosinophils % (Manual) 1 % (0-3) Basophils % (Manual) 0 % (0-2) Band Neutrophils 1 % (0-8) Platelet Estimate Adequate Platelet Morphology Normal Hypochromasia 2+ Anisocytosis 1+ Sodium Level 142 MMOL/L (136-145) Potassium Level 3.4 MMOL/L (3.5-5.1) L Chloride Level 112 MMOL/L (98-107) H Carbon Dioxide Level 20 MMOL/L (21-32) L Anion Gap 11 mmol/L (5-15) Blood Urea Nitrogen 17 mg/dL (7-18) Creatinine 1.2 MG/DL (0.55-1.30) Estimat Glomerular Filtration Rate > 60 mL/min (>60) Glucose Level 61 MG/DL (74-106) L Calcium Level 6.7 MG/DL (8.5-10.1) L Total Bilirubin 0.2 MG/DL (0.2-1.0) Aspartate Amino Transf (AST/SGOT) 20 U/L (15-37) Alanine Aminotransferase (ALT/SGPT) 80 U/L (12-78) H Alkaline Phosphatase 108 U/L (46-116) C-Reactive Protein, Quantitative 7.0 mg/dL (0.00-0.90) H Total Protein 4.9 G/DL (6.4-8.2) L Albumin 1.3 G/DL (3.4-5.0) L Globulin 3.6 g/dL Albumin/Globulin Ratio 0.4 (1.0-2.7) L Lipase 1698 U/L (73-393) H Fibrinogen 320 mg/dL (200-400) Iron Level 17 ug/dL (50-175) L Total Iron Binding Capacity 58 ug/dL (250-450) L Percent Iron Saturation 29 % (15-50) Unsaturated Iron Binding 41 ug/dL (112-346) L Ferritin 155 NG/ML (8-388) Carcinoembryonic Antigen Pending Folate 5.6 NG/ML (8.6-58.9) L Homocystine Pending Microbiology Date/Time Source Procedure Growth Status 01/24/18 18:00 Blood Blood Culture - Preliminary NO GROWTH AFTER 24 HOURS Resulted 01/24/18 17:10 Blood Blood Culture - Preliminary NO GROWTH AFTER 24 HOURS Resulted 01/24/18 17:10 Sputum Gram Stain - Final Resulted 01/24/18 17:10 Sputum Culture - Preliminary Gram Negative Bacillus 1 Resulted Intake and Output 01/25/18 01/26/18 19:00 07:00 Intake Total 3766.416 ml 1658 ml Output Total 2465 ml 2330 ml Balance 1301.416 ml -672 ml IV Total 3046.416 ml 838 ml Tube Feeding 720 ml 720 ml Other 100 ml Output Urine Total 1695 ml 1600 ml Stool Total 250 ml 320 ml Drainage Total 520 ml 410 ml # Bowel Movements 3 3 Objective General Appearance: WD/WN, lethargic EENT: normal ENT inspection Neck: non-tender, normal alignment, supple, other - tracheostomy Cardiovascular: normal peripheral pulses, normal rate, regular rhythm, regularly irregular, no gallop/murmur, no JVD Respiratory/Chest: Mech vent; chest wall non-tender, no accessory muscle use, rhonchi - bilaterally, other - Mech Vent Abdomen: normal bowel sounds, non tender, soft, no organomegaly, no mass Extremities: normal inspection Skin: normal pigmentation, warm/dry Assessment/Plan Problem List: (1) Incarcerated ventral hernia Assessment & Plan: S/P exploratory laparotomy on 01/19/18-see surgery note. S/P sigmoidectomy, omentectomy and hemicolectomy on 01/21/18. Continue bactrim, vanco and meropenem per ID (2) Volvulus of sigmoid colon (3) Abdominal distension Assessment & Plan: Resolving-see surgery note. (4) Cardiac arrest Assessment & Plan: see cardiology note (5) Seizure disorder Assessment & Plan: Continue keppra and dilantin (6) Anemia (7) Hypertension Assessment & Plan: Hypotensived. Currently on pressors. (8) Encephalopathy (9) Dysphagia Status: not improved Assessment/Plan prognosis is guarded. Adrian Porter MD Jan 26, 2018 17:11
[2018-01-26] MEDS ORDERED: LR 1000ml 1,000 ML IV SCH (19:30)
[2018-01-26 19:38] LABS: HEMATOCRIT 25.1 % (37.0-47.0); MEAN CORPUSCULAR VOLUME 91 FL (80-99); PLATELET COUNT 183 K/UL (150-450); RED BLOOD COUNT 2.76 M/UL (4.20-5.40); RED CELL DISTRIBUTION WIDTH 12.7 % (11.6-14.8)
[2018-01-26 19:42] LABS: ANION GAP 9 mmol/L (5-15); BLOOD UREA NITROGEN 20 mg/dL (7-18); CALCIUM 6.9 MG/DL (8.5-10.1); CARBON DIOXIDE 20 MMOL/L (21-32); CHLORIDE 113 MMOL/L (98-107); CREATININE 1.2 MG/DL (0.55-1.30); POTASSIUM 3.8 MMOL/L (3.5-5.1); SODIUM 142 MMOL/L (136-145)
[2018-01-26 19:47] LABS: ALANINE AMINOTRANSFERASE 61 U/L (12-78); ALBUMIN 1.3 G/DL (3.4-5.0); ALBUMIN/GLOBULIN RATIO 0.4 (1.0-2.7); ALKALINE PHOSPHATASE 95 U/L (46-116); ASPARTATE AMINO TRANSFERASE 14 U/L (15-37); BILIRUBIN,TOTAL 0.2 MG/DL (0.2-1.0)
[2018-01-26 19:56] LABS: WHITE BLOOD COUNT 40.9 K/UL (4.8-10.8)
[2018-01-26] MEDS: Dyna-Hex 2% Top Sol 2oz TOPIC SCH (20:45)
[2018-01-26] MEDS: Micafungin 100 MG in NS 110 ML IVPB SCH (20:45)
[2018-01-27] VITALS (24 sets, daily range): BP systolic 102–140; BP diastolic 63–125
[2018-01-27 06:55] LABS: HEMATOCRIT 24.3 % (37.0-47.0); HEMOGLOBIN 7.7 G/DL (12.0-16.0); MEAN CORPUSCULAR VOLUME 92 FL (80-99); PLATELET COUNT 189 K/UL (150-450); RED BLOOD COUNT 2.65 M/UL (4.20-5.40); RED CELL DISTRIBUTION WIDTH 12.4 % (11.6-14.8)
[2018-01-27 07:03] LABS: WHITE BLOOD COUNT 41.7 K/UL (4.8-10.8)
[2018-01-27 07:34] LABS: ALANINE AMINOTRANSFERASE 57 U/L (12-78); ALBUMIN 1.2 G/DL (3.4-5.0); ALBUMIN/GLOBULIN RATIO 0.3 (1.0-2.7); ALKALINE PHOSPHATASE 96 U/L (46-116); ANION GAP 8 mmol/L (5-15); ASPARTATE AMINO TRANSFERASE 17 U/L (15-37); BILIRUBIN,TOTAL 0.2 MG/DL (0.2-1.0); BLOOD UREA NITROGEN 18 mg/dL (7-18); CARBON DIOXIDE 21 MMOL/L (21-32); CHLORIDE 114 MMOL/L (98-107); CREATININE 1.2 MG/DL (0.55-1.30); PHOSPHORUS 3.2 MG/DL (2.5-4.9); SODIUM 143 MMOL/L (136-145)
--- NOTE | 2018-01-27 08:13 | Nephrology Progress Note ---
Assessment/Plan Assessment/Plan 1. INDIRA- Cr stable, mutlifact ATN - Cr 1.2 2. Hypok+/Mg- replace prn 3. Resp FL:- intubated on the ventilator 4- Sepsis- abx. WBC 40K -s/p re-exploration of abdomen, sigmoid colectomy, takedown of splenic flexure, left hemicolectomy, creation of transverse colostomy, abdominal closure per gen surgery Subjective Date patient seen: Jan 27, 2018 Time patient seen: 08:09 ROS Limited/Unobtainable: Yes Allergies: Coded Allergies: No Known Allergies (Unverified , 01/18/15) Subjective Patient remains trached on the vent Objective Last 24 Hour Vital Signs Date Time Temp Pulse Resp B/P (MAP) Pulse Ox O2 Delivery O2 Flow Rate FiO2 01/27/18 08:00 30 01/27/18 08:00 Mechanical Ventilator 01/27/18 07:25 116 23 30 01/27/18 06:20 99.3 01/27/18 06:00 129 18 102/68 (79) 99 01/27/18 05:17 101.5 01/27/18 05:14 144 27 30 01/27/18 05:00 143 25 140/125 (130) 99 01/27/18 04:00 129 01/27/18 04:00 30 01/27/18 04:00 101.5 129 22 129/71 (90) 99 101.5 01/27/18 04:00 Mechanical Ventilator 01/27/18 03:20 120 20 30 01/27/18 03:00 124 19 119/67 (84) 100 01/27/18 02:00 122 12 121/71 (88) 100 01/27/18 01:00 126 19 119/71 (87) 99 01/27/18 00:54 125 18 30 01/27/18 00:00 122 01/27/18 00:00 Mechanical Ventilator 01/27/18 00:00 30 01/27/18 00:00 99.9 122 18 121/77 (92) 100 99.9 01/26/18 23:29 126 19 30 01/26/18 23:00 122 18 112/63 (79) 100 01/26/18 22:00 122 18 99/62 (74) 98 01/26/18 21:20 125 17 30 01/26/18 21:00 126 17 104/69 (81) 99 01/26/18 20:00 30 01/26/18 20:00 131 17 96/58 (71) 98 01/26/18 20:00 131 01/26/18 20:00 Mechanical Ventilator 01/26/18 19:15 137 20 30 01/26/18 19:00 100.6 132 19 92/49 (63) 97 100.6 01/26/18 18:00 138 20 99/64 (76) 97 01/26/18 17:39 101.0 01/26/18 17:05 144 22 30 01/26/18 17:00 101.0 146 26 116/62 (80) 97 101.0 01/26/18 16:00 Mechanical Ventilator 01/26/18 16:00 152 01/26/18 16:00 146 24 115/71 (86) 97 01/26/18 16:00 30 01/26/18 15:00 152 26 121/74 (90) 97 01/26/18 14:46 121 19 30 01/26/18 14:00 120 20 124/76 (92) 99 01/26/18 13:00 118 20 113/75 (88) 99 01/26/18 12:39 113 19 30 01/26/18 12:00 99.9 115 15 107/58 (74) 100 99.9 01/26/18 12:00 Mechanical Ventilator 01/26/18 12:00 30 01/26/18 12:00 108 01/26/18 11:00 111 17 106/58 (74) 100 01/26/18 10:44 116 26 30 01/26/18 10:00 112 17 113/63 (80) 100 01/26/18 09:28 115 17 30 01/26/18 09:00 115 25 115/63 (80) 100 Intake and Output 01/26/18 01/27/18 19:00 07:00 Intake Total 1790.668 ml 1748 ml Output Total 2390 ml 1890 ml Balance -599.332 ml -142 ml IV Total 1070.668 ml 1028 ml Tube Feeding 720 ml 720 ml Output Urine Total 1930 ml 1450 ml Stool Total 300 ml 250 ml Drainage Total 160 ml 190 ml # Bowel Movements 3 Laboratory Tests 01/26/18 08:30: Fibrinogen 320, Iron Level 17L, Total Iron Binding Capacity 58L, Percent Iron Saturation 29, Unsaturated Iron Binding 41L, Ferritin 155, Carcinoembryonic Antigen [Pending], Folate 5.6L, Homocystine [Pending] 01/26/18 18:30: White Blood Count 40.9*H, Red Blood Count 2.76L, Hemoglobin 8.0L, Hematocrit 25.1L, Mean Corpuscular Volume 91, Mean Corpuscular Hemoglobin 29.2, Mean Corpuscular Hemoglobin Concent 32.0, Red Cell Distribution Width 12.7, Platelet Count 183, Mean Platelet Volume 6.0L, Neutrophils (%) (Auto) , Lymphocytes (%) ( Auto) , Monocytes (%) (Auto) , Eosinophils (%) (Auto) , Basophils (%) (Auto) , Differential Total Cells Counted 100, Neutrophils % (Manual) 80H, Lymphocytes % (Manual) 8L, Monocytes % (Manual) 6, Eosinophils % (Manual) 5H, Basophils % ( Manual) 0, Band Neutrophils 1, Platelet Estimate Adequate, Platelet Morphology Normal, Polychromasia 1+, Hypochromasia 2+, Anisocytosis 1+, Sodium Level 142, Potassium Level 3.8, Chloride Level 113H, Carbon Dioxide Level 20L, Anion Gap 9 , Blood Urea Nitrogen 20H, Creatinine 1.2, Estimat Glomerular Filtration Rate > 60, Glucose Level 110H, Lactic Acid Level 1.00, Calcium Level 6.9L, Total Bilirubin 0.2, Aspartate Amino Transf (AST/SGOT) 14L, Alanine Aminotransferase ( ALT/SGPT) 61, Alkaline Phosphatase 95, Troponin I 0.000, Total Protein 4.8L, Albumin 1.3L, Globulin 3.5, Albumin/Globulin Ratio 0.4L 01/27/18 05:00: White Blood Count 41.7*H, Red Blood Count 2.65L, Hemoglobin 7.7L, Hematocrit 24.3L, Mean Corpuscular Volume 92, Mean Corpuscular Hemoglobin 29.1, Mean Corpuscular Hemoglobin Concent 31.7L, Red Cell Distribution Width 12.4, Platelet Count 189, Mean Platelet Volume 6.4L, Neutrophils (%) (Auto) , Lymphocytes (%) (Auto) , Monocytes (%) (Auto) , Eosinophils (%) (Auto) , Basophils (%) (Auto) , Differential Total Cells Counted 100, Neutrophils % ( Manual) 79H, Lymphocytes % (Manual) 14L, Monocytes % (Manual) 3, Eosinophils % ( Manual) 1, Basophils % (Manual) 0, Band Neutrophils 3, Platelet Estimate Adequate, Platelet Morphology Normal, Hypochromasia 1+, Sodium Level 143, Potassium Level 4.0, Chloride Level 114H, Carbon Dioxide Level 21, Anion Gap 8, Blood Urea Nitrogen 18, Creatinine 1.2, Estimat Glomerular Filtration Rate > 60 , Glucose Level 86, Calcium Level 7.0L, Total Bilirubin 0.2, Aspartate Amino Transf (AST/SGOT) 17, Alanine Aminotransferase (ALT/SGPT) 57, Alkaline Phosphatase 96, Total Protein 5.2L, Albumin 1.2L, Globulin 4.0, Albumin/ Globulin Ratio 0.3L, Phosphorus Level 3.2, Magnesium Level 1.1L Height (Feet): 5 Height (Inches): 3.00 Weight (Pounds): 184 General Appearance: no apparent distress EENT: normal ENT inspection Neck: normal alignment, supple Cardiovascular: normal rate, regular rhythm Abdomen: non tender, soft Edema: no edema noted Arm (L), no edema noted Arm (R), no edema noted Leg (L), no edema noted Leg (R), no edema noted Pedal (L), no edema noted Pedal (R), no edema noted Generalized Raudel Jimenez M.D. Jan 27, 2018 08:13
[2018-01-27] MEDS: levETIRAcetam 1,000mg/NS100ml 100 ML IVPB SCH ×2 (08:47→20:43)
[2018-01-27] MEDS: Pantoprazole Inj IV SCH ×2 (08:47→20:42)
[2018-01-27] MEDS: Vancomycin oral 125mg/2.5ml ORAL SCH ×4 (08:47→20:43)
[2018-01-27] MEDS: Heparin 5000 units/ml inj SUBQ SCH ×2 (08:51→20:45)
[2018-01-27] MEDS: PHENYTOIN IVPB SCH ×2 (09:15→21:00)
[2018-01-27] MEDS: NS IVPB SCH ×2 (09:15→21:00)
[2018-01-27] MEDS: Tigecycline 50 MG in D5W 110 ML IVPB SCH ×2 (09:27→20:44)
--- NOTE | 2018-01-27 10:37 | Cardiology Report ---
APPROVED REPORT EXAM: Two-dimensional and M-mode echocardiogram with Doppler and color Doppler. INDICATION EJECTION FRACTION M-Mode DIMENSIONS IVSd1.5 (0.7-1.1cm)Left Atrium (MM)3.6 (1.6-4.0cm) LVDd4.3 (3.5-5.6cm)Aortic Root3.3 (2.0-3.7cm) PWd1.0 (0.7-1.1cm)Aortic Cusp Exc.2.2 (1.5-2.0cm) IVSs1.7 cm LVDs3.2 (2.5-4.0cm) PWs0.8 cm Technically difficult study due to pts ventilator Normal left ventricular chamber size to extent visualized. Global left ventricular hypokinesis . Left ventricular ejection fraction estimated to be 40 %. Mild left ventricular hypertrophy by 2-D. No evidence of pericardial effusion All other cardiac chamber sizes are within normal limits. Focal aortic valve sclerosis with adequate cusp excursion. Thickened mitral valve leaflets with normal excursion. Mitral annulus and aortic root calcification. Pulmonic valve not well visualized. Normal tricuspid valve structure. IVC at normal size with slightly physiologic collapse. A color flow and spectral Doppler study was performed and revealed: No aortic regurgitation. Mild mitral regurgitation. Mild tricuspid regurgitation. Tricuspid systolic velocities suggests peak right ventricular systolic pressure of 14 mmHg Trace Pulmonic regurgitation present.
--- NOTE | 2018-01-27 10:51 | General Progress Note ---
Assessment/Plan Status: not improved, unchanged Assessment/Plan #. Leukocytosis, likely due to infection, peritonitis, now better --> The patient with lactic acidosis. Lactic acid 7.4. --> Currently on pressors. Rule out infectious etiology. --> On broad-spectrum antibiotics and antifungals. --> Closely monitor for improvement. #. Anemia currently due to blood loss from surgery in addition to hemodilution --> cr goal is >7 --> jak2 level pending under serology as she had erythrocytosis on presentation --> anemia w/u has been reviewed #. Coagulopathy with inr 1.6 likely due to malnutrition v dic --> obtain a mixing study #. Septic shock, closely monitor, --> on antibiotics, broad spectrum. #. Seizure disorder, currently on antiseizure medication. #. Respiratory failure, status post trach and vent. #. Dysphagia, status post gastrostomy tube. The time the note was entered does not necessarily correspond to the time the patient was seen. Subjective Date patient seen: Jan 27, 2018 ROS Limited/Unobtainable: Yes Hematologic/Lymphatic: Reports: anemia Allergies: Coded Allergies: No Known Allergies (Unverified , 01/18/15) All Systems: reviewed and negative except above Subjective Pt remains in ICU. No acute events. Pt febrile overnight, currently sable. Re- exploration of abd planned. Objective Last 24 Hour Vital Signs Date Time Temp Pulse Resp B/P (MAP) Pulse Ox O2 Delivery O2 Flow Rate FiO2 01/27/18 10:00 113 14 115/67 (83) 100 01/27/18 09:11 121 26 30 01/27/18 09:00 115 16 119/67 (84) 94 01/27/18 08:00 30 01/27/18 08:00 99.9 120 18 122/73 (89) 94 99.9 01/27/18 08:00 Mechanical Ventilator 01/27/18 07:25 116 23 30 01/27/18 07:00 119 17 117/92 (100) 96 01/27/18 06:20 99.3 01/27/18 06:00 129 18 102/68 (79) 99 01/27/18 05:17 101.5 01/27/18 05:14 144 27 30 01/27/18 05:00 143 25 140/125 (130) 99 01/27/18 04:00 129 01/27/18 04:00 30 01/27/18 04:00 101.5 129 22 129/71 (90) 99 101.5 01/27/18 04:00 Mechanical Ventilator 01/27/18 03:20 120 20 30 01/27/18 03:00 124 19 119/67 (84) 100 01/27/18 02:00 122 12 121/71 (88) 100 01/27/18 01:00 126 19 119/71 (87) 99 01/27/18 00:54 125 18 30 01/27/18 00:00 122 01/27/18 00:00 Mechanical Ventilator 01/27/18 00:00 30 01/27/18 00:00 99.9 122 18 121/77 (92) 100 99.9 01/26/18 23:29 126 19 30 01/26/18 23:00 122 18 112/63 (79) 100 01/26/18 22:00 122 18 99/62 (74) 98 01/26/18 21:20 125 17 30 01/26/18 21:00 126 17 104/69 (81) 99 01/26/18 20:00 30 01/26/18 20:00 131 17 96/58 (71) 98 01/26/18 20:00 131 01/26/18 20:00 Mechanical Ventilator 01/26/18 19:15 137 20 30 01/26/18 19:00 100.6 132 19 92/49 (63) 97 100.6 01/26/18 18:00 138 20 99/64 (76) 97 01/26/18 17:39 101.0 01/26/18 17:05 144 22 30 01/26/18 17:00 101.0 146 26 116/62 (80) 97 101.0 01/26/18 16:00 Mechanical Ventilator 01/26/18 16:00 152 01/26/18 16:00 146 24 115/71 (86) 97 01/26/18 16:00 30 01/26/18 15:00 152 26 121/74 (90) 97 01/26/18 14:46 121 19 30 01/26/18 14:00 120 20 124/76 (92) 99 01/26/18 13:00 118 20 113/75 (88) 99 01/26/18 12:39 113 19 30 7/10/18 12:00 99.9 115 15 107/58 (74) 100 99.9 01/26/18 12:00 Mechanical Ventilator 01/26/18 12:00 30 01/26/18 12:00 108 01/26/18 11:00 111 17 106/58 (74) 100 Intake and Output 01/26/18 01/27/18 19:00 07:00 Intake Total 1790.668 ml 1748 ml Output Total 2390 ml 1890 ml Balance -599.332 ml -142 ml IV Total 1070.668 ml 1028 ml Tube Feeding 720 ml 720 ml Output Urine Total 1930 ml 1450 ml Stool Total 300 ml 250 ml Drainage Total 160 ml 190 ml # Bowel Movements 3 Laboratory Tests 01/26/18 18:30: White Blood Count 40.9*H, Red Blood Count 2.76L, Hemoglobin 8.0L, Hematocrit 25.1L, Mean Corpuscular Volume 91, Mean Corpuscular Hemoglobin 29.2, Mean Corpuscular Hemoglobin Concent 32.0, Red Cell Distribution Width 12.7, Platelet Count 183, Mean Platelet Volume 6.0L, Neutrophils (%) (Auto) , Lymphocytes (%) ( Auto) , Monocytes (%) (Auto) , Eosinophils (%) (Auto) , Basophils (%) (Auto) , Differential Total Cells Counted 100, Neutrophils % (Manual) 80H, Lymphocytes % (Manual) 8L, Monocytes % (Manual) 6, Eosinophils % (Manual) 5H, Basophils % ( Manual) 0, Band Neutrophils 1, Platelet Estimate Adequate, Platelet Morphology Normal, Polychromasia 1+, Hypochromasia 2+, Anisocytosis 1+, Sodium Level 142, Potassium Level 3.8, Chloride Level 113H, Carbon Dioxide Level 20L, Anion Gap 9 , Blood Urea Nitrogen 20H, Creatinine 1.2, Estimat Glomerular Filtration Rate > 60, Glucose Level 110H, Lactic Acid Level 1.00, Calcium Level 6.9L, Total Bilirubin 0.2, Aspartate Amino Transf (AST/SGOT) 14L, Alanine Aminotransferase ( ALT/SGPT) 61, Alkaline Phosphatase 95, Troponin I 0.000, Total Protein 4.8L, Albumin 1.3L, Globulin 3.5, Albumin/Globulin Ratio 0.4L 01/27/18 05:00: White Blood Count 41.7*H, Red Blood Count 2.65L, Hemoglobin 7.7L, Hematocrit 24.3L, Mean Corpuscular Volume 92, Mean Corpuscular Hemoglobin 29.1, Mean Corpuscular Hemoglobin Concent 31.7L, Red Cell Distribution Width 12.4, Platelet Count 189, Mean Platelet Volume 6.4L, Neutrophils (%) (Auto) , Lymphocytes (%) (Auto) , Monocytes (%) (Auto) , Eosinophils (%) (Auto) , Basophils (%) (Auto) , Differential Total Cells Counted 100, Neutrophils % ( Manual) 79H, Lymphocytes % (Manual) 14L, Monocytes % (Manual) 3, Eosinophils % ( Manual) 1, Basophils % (Manual) 0, Band Neutrophils 3, Platelet Estimate Adequate, Platelet Morphology Normal, Hypochromasia 1+, Sodium Level 143, Potassium Level 4.0, Chloride Level 114H, Carbon Dioxide Level 21, Anion Gap 8, Blood Urea Nitrogen 18, Creatinine 1.2, Estimat Glomerular Filtration Rate > 60 , Glucose Level 86, Calcium Level 7.0L, Total Bilirubin 0.2, Aspartate Amino Transf (AST/SGOT) 17, Alanine Aminotransferase (ALT/SGPT) 57, Alkaline Phosphatase 96, Total Protein 5.2L, Albumin 1.2L, Globulin 4.0, Albumin/ Globulin Ratio 0.3L, Phosphorus Level 3.2, Magnesium Level 1.1L 01/27/18 08:45: Arterial Blood pH 7.398, Arterial Blood Partial Pressure CO2 32.1L, Arterial Blood Partial Pressure O2 110.1H, Arterial Blood HCO3 19.4L, Arterial Blood Oxygen Saturation 97.9, Arterial Blood Base Excess -4.8, Benjie Test Positive Height (Feet): 5 Height (Inches): 3.00 Weight (Pounds): 184 General Appearance: lethargic, confused EENT: PERRL/EOMI Neck: normal alignment Cardiovascular: normal peripheral pulses Respiratory/Chest: no respiratory distress Abdomen: normal bowel sounds Isaiah Noriega MD Jan 27, 2018 10:51
--- NOTE | 2018-01-27 11:15 | Pulmonolgy Critical Care Note ---
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, 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 - Objective Last 24 Hour Vital Signs Date Time Temp Pulse Resp B/P (MAP) Pulse Ox O2 Delivery O2 Flow Rate FiO2 01/27/18 10:47 116 26 30 01/27/18 10:00 113 14 115/67 (83) 100 01/27/18 09:11 121 26 30 01/27/18 09:00 115 16 119/67 (84) 94 01/27/18 08:00 30 01/27/18 08:00 99.9 120 18 122/73 (89) 94 99.9 01/27/18 08:00 Mechanical Ventilator 01/27/18 07:25 116 23 30 01/27/18 07:00 119 17 117/92 (100) 96 01/27/18 06:20 99.3 01/27/18 06:00 129 18 102/68 (79) 99 01/27/18 05:17 101.5 01/27/18 05:14 144 27 30 01/27/18 05:00 143 25 140/125 (130) 99 01/27/18 04:00 129 01/27/18 04:00 30 01/27/18 04:00 101.5 129 22 129/71 (90) 99 101.5 01/27/18 04:00 Mechanical Ventilator 01/27/18 03:20 120 20 30 01/27/18 03:00 124 19 119/67 (84) 100 01/27/18 02:00 122 12 121/71 (88) 100 01/27/18 01:00 126 19 119/71 (87) 99 01/27/18 00:54 125 18 30 01/27/18 00:00 122 01/27/18 00:00 Mechanical Ventilator 01/27/18 00:00 30 01/27/18 00:00 99.9 122 18 121/77 (92) 100 99.9 01/26/18 23:29 126 19 30 01/26/18 23:00 122 18 112/63 (79) 100 01/26/18 22:00 122 18 99/62 (74) 98 01/26/18 21:20 125 17 30 01/26/18 21:00 126 17 104/69 (81) 99 01/26/18 20:00 30 01/26/18 20:00 131 17 96/58 (71) 98 01/26/18 20:00 131 01/26/18 20:00 Mechanical Ventilator 01/26/18 19:15 137 20 30 01/26/18 19:00 100.6 132 19 92/49 (63) 97 100.6 01/26/18 18:00 138 20 99/64 (76) 97 01/26/18 17:39 101.0 01/26/18 17:05 144 22 30 01/26/18 17:00 101.0 146 26 116/62 (80) 97 101.0 01/26/18 16:00 Mechanical Ventilator 01/26/18 16:00 152 01/26/18 16:00 146 24 115/71 (86) 97 01/26/18 16:00 30 01/26/18 15:00 152 26 121/74 (90) 97 01/26/18 14:46 121 19 30 01/26/18 14:00 120 20 124/76 (92) 99 01/26/18 13:00 118 20 113/75 (88) 99 01/26/18 12:39 113 19 30 01/26/18 12:00 99.9 115 15 107/58 (74) 100 99.9 01/26/18 12:00 Mechanical Ventilator 01/26/18 12:00 30 01/26/18 12:00 108 Status: awake Condition: critical HEENT: atraumatic Neck: full ROM Lungs: chest wall tender Heart: HR/BP stable Abdomen: soft, non-tender Extremities: no C/C/E Decubiti: location Micro: Microbiology Date/Time Source Procedure Growth Status 01/24/18 18:00 Blood Blood Culture - Preliminary NO GROWTH AFTER 48 HOURS Resulted 01/24/18 17:10 Blood Blood Culture - Preliminary NO GROWTH AFTER 48 HOURS Resulted 01/24/18 17:10 Sputum Gram Stain - Final Resulted 01/24/18 17:10 Sputum Culture - Preliminary Gram Negative Bacillus 1 Gram Negative Bacillus 2 Resulted 01/26/18 04:04 Stool Clostridium difficile Toxin Assay - Final Complete Accucheck: 248 Critical Care - Subjective ROS Limited/Unobtainable: Yes Condition: critical EKG Rhythm: Sinus Rhythm FI02: 30 Vent Support Breath Rate: 12 Vent Support Mode: AC Vent Tidal Volume: 600 Sputum Amount: Moderate PEEP: 5.0 PIP: 38 Tube Feeding Amount: 60 I&O: Intake and Output 01/26/18 01/27/18 19:00 07:00 Intake Total 1790.668 ml 1748 ml Output Total 2390 ml 1890 ml Balance -599.332 ml -142 ml IV Total 1070.668 ml 1028 ml Tube Feeding 720 ml 720 ml Output Urine Total 1930 ml 1450 ml Stool Total 300 ml 250 ml Drainage Total 160 ml 190 ml # Bowel Movements 3 CXR: no change Labs: Laboratory Tests Test 01/26/18 18:30 01/27/18 05:00 01/27/18 08:45 White Blood Count 40.9 K/UL (4.8-10.8) *H 41.7 K/UL (4.8-10.8) *H Red Blood Count 2.76 M/UL (4.20-5.40) L 2.65 M/UL (4.20-5.40) L Hemoglobin 8.0 G/DL (12.0-16.0) L 7.7 G/DL (12.0-16.0) L Hematocrit 25.1 % (37.0-47.0) L 24.3 % (37.0-47.0) L Mean Corpuscular Volume 91 FL (80-99) 92 FL (80-99) Mean Corpuscular Hemoglobin 29.2 PG (27.0-31.0) 29.1 PG (27.0-31.0) Mean Corpuscular Hemoglobin Concent 32.0 G/DL (32.0-36.0) 31.7 G/DL (32.0-36.0) L Red Cell Distribution Width 12.7 % (11.6-14.8) 12.4 % (11.6-14.8) Platelet Count 183 K/UL (150-450) 189 K/UL (150-450) Mean Platelet Volume 6.0 FL (6.5-10.1) L 6.4 FL (6.5-10.1) L Neutrophils (%) (Auto) % (45.0-75.0) % (45.0-75.0) Lymphocytes (%) (Auto) % (20.0-45.0) % (20.0-45.0) Monocytes (%) (Auto) % (1.0-10.0) % (1.0-10.0) Eosinophils (%) (Auto) % (0.0-3.0) % (0.0-3.0) Basophils (%) (Auto) % (0.0-2.0) % (0.0-2.0) Differential Total Cells Counted 100 100 Neutrophils % (Manual) 80 % (45-75) H 79 % (45-75) H Lymphocytes % (Manual) 8 % (20-45) L 14 % (20-45) L Monocytes % (Manual) 6 % (1-10) 3 % (1-10) Eosinophils % (Manual) 5 % (0-3) H 1 % (0-3) Basophils % (Manual) 0 % (0-2) 0 % (0-2) Band Neutrophils 1 % (0-8) 3 % (0-8) Platelet Estimate Adequate Adequate Platelet Morphology Normal Normal Polychromasia 1+ Hypochromasia 2+ 1+ Anisocytosis 1+ Sodium Level 142 MMOL/L (136-145) 143 MMOL/L (136-145) Potassium Level 3.8 MMOL/L (3.5-5.1) 4.0 MMOL/L (3.5-5.1) Chloride Level 113 MMOL/L (98-107) H 114 MMOL/L (98-107) H Carbon Dioxide Level 20 MMOL/L (21-32) L 21 MMOL/L (21-32) Anion Gap 9 mmol/L (5-15) 8 mmol/L (5-15) Blood Urea Nitrogen 20 mg/dL (7-18) H 18 mg/dL (7-18) Creatinine 1.2 MG/DL (0.55-1.30) 1.2 MG/DL (0.55-1.30) Estimat Glomerular Filtration Rate > 60 mL/min (>60) > 60 mL/min (>60) Glucose Level 110 MG/DL (74-106) H 86 MG/DL (74-106) Lactic Acid Level 1.00 mmol/L (0.4-2.0) Calcium Level 6.9 MG/DL (8.5-10.1) L 7.0 MG/DL (8.5-10.1) L Total Bilirubin 0.2 MG/DL (0.2-1.0) 0.2 MG/DL (0.2-1.0) Aspartate Amino Transf (AST/SGOT) 14 U/L (15-37) L 17 U/L (15-37) Alanine Aminotransferase (ALT/SGPT) 61 U/L (12-78) 57 U/L (12-78) Alkaline Phosphatase 95 U/L (46-116) 96 U/L (46-116) Troponin I 0.000 ng/mL (0.000-0.056) Total Protein 4.8 G/DL (6.4-8.2) L 5.2 G/DL (6.4-8.2) L Albumin 1.3 G/DL (3.4-5.0) L 1.2 G/DL (3.4-5.0) L Globulin 3.5 g/dL 4.0 g/dL Albumin/Globulin Ratio 0.4 (1.0-2.7) L 0.3 (1.0-2.7) L Phosphorus Level 3.2 MG/DL (2.5-4.9) Magnesium Level 1.1 MG/DL (1.8-2.4) L Arterial Blood pH 7.398 (7.350-7.450) Arterial Blood Partial Pressure CO2 32.1 mmHg (35.0-45.0) L Arterial Blood Partial Pressure O2 110.1 mmHg (75.0-100.0) H Arterial Blood HCO3 19.4 mmol/L (22.0-26.0) L Arterial Blood Oxygen Saturation 97.9 % (92.0-98.0) Arterial Blood Base Excess -4.8 Benjie Test Positive Yanick Hernandez MD Jan 27, 2018 11:15
[2018-01-27] MEDS ORDERED: LR 1000ml ONE (11:37)
[2018-01-27] MEDS ORDERED: NS 275ml ONE ×2 (11:37→17:26)
--- NOTE | 2018-01-27 11:59 | Diagnostic Imaging Report ---
Indication: Dyspnea Comparison: 01/25/2018 A single view chest radiograph was obtained. Findings: Hazy left basilar opacity may be a pleural effusion. Cardiomegaly is present and stable. Mild vascular congestion demonstrated. Tubes and lines stable. IMPRESSION: No change from the prior exam
--- NOTE | 2018-01-27 12:21 | Infectious Diseases Prog Note ---
Assessment/Plan Assessment/Plan Assessment: Septic shock ; resolved after surgical exploration- 2ry intraabdominal source- (intra-abdominal peritonitis 2ry to malpositioned gastric feeding tube, incarcerated fat containing ventral hernia and likely sigmoid volvulus) --SP Re-exploration of abdomen, Sigmoid colectomy for volvulus, Takedown of splenic flexure, Left hemicolectomy, Creation of transverse colostomy, Abdominal closure 01/21 -OR findings: no further leakage of gastric contents or feeds. No bleeding. sigmoid colon remained significantly distended despite rectal tube placement and prior decompression. Sigmoid colon easily volvulized intraoperatively. --SP Exploratory laparotomy, Abdominal washout, G-tube replacement, wound vac placment, Excision of incarcerated ventral hernia, and Reduction of sigmoid volvulus 01/19 --no perforation or gross necrosis noted upon surgical exploration --abd fluid cx anerobic Neg; aerobic P. mirabilis (I Cipro, otherwise S), Serratia liquefences (R ancef, levo; otherwise S), CONS -No obvious pathology on lungs on CXR. r/o UTI -Bcx 2/4 Diptheroids, 1/4 CONS (contaminants), Aerococcus sp (typically a urinary pathogen; S Vanco, Ceftriaxone, PNC), ?UTI (often is not isolated from urine culture given special media requirements) -u/a initial normal; repeat WBC 10-15, nit +, leuk +1 but sq cells mod ( contaminated); ucx NTD -CXR: Hyperlucent the upper abdomen. Free air not excluded. Correlate clinically. Distended bowel also noted. No acute disease within the chest. Tracheostomy -CRP impoved (now 7) -Lipase ~1k Fever/leukocytosis; Fever recurrent; r/o bacteremia leukocytosis worsening-Supect Cdiff (increased foul smelling ostomy output, dilation of bowels, no obvious abscess on limited CT). Likely Pancreatitis ( elevated Lipase) -01/24 u/a neg Bc xNTD sp cx GNRs CDiff toxin A/B EIA neg (this test ahs low sensitivity); still suspect Cdiff -CT chest/abd/p 01/24: Very limited examination due to the lack of intravenous and oral contrast administration. Status post recent abdominal surgery with open anterior abdominal incision still noted. No abscess. Suggestion of dilatation of multiple loops of small bowel, not evaluated well on this examination. Findings may be due to postoperative ileus. Obstruction is not excludable. Left lower quadrant ostomy noted. Small bilateral pleural effusions and posterior basal atelectasis. Tracheostomy, PICC line, gastrostomy, Rock catheter is in good position. Moderate fecal retention in the rectum which is distended. Anasarca. -CXR: Question of new pneumomediastinum along the left heart margin. Question whether the tracheostomy is appropriately sealed. Basilar opacities again noted, increased on the left. Some of this could be due to differences in positioning, but question increasing pleural fluid and associated atelectasis/consolidation. Right-sided opacity is stable. ?Pneumomediastinum- not see on CT chest Elevated CPK- likely 2ry to sepsis, Dapto possibly also contributing- resolved -Dapto d/c 01/21 POssible PNA- -CXR 01/21: Airspace disease versus atelectasis at the lung bases. Correlate clinically. Probable improvement in interstitial edema since the prior study. -sp cx MDR ABC ( S Bactrim, Tigecycline, Colistin, Polymixin B), E.coli #2 ( S. 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-tube 2015 SNF resident Plan: -Continue Micafungin #/ for sepsis and for bowel emmanuel coverage -01/26 SP IV Vancomycin #6, PO Bactrim #5 -79 SP Meropenem #8 -01/21 SP Daptomycin #4 (d/c due to elevated CPK) -7/ SP IV Vancomycin #1, Cefepime x1, Azithromycin x1, Zosyn x1 -Continue Tigecycline #3 (abx d# 10) for intra-abdominal and MDR ABC in sputum coverage and synergistic for possible Cdiff -Continue empiric PO Vancomycin #3 and IV Flagyl #3 for suspected severe CDiff -f/u ucx, Bcx x2, sp cx -repeat u/a w/, Bcx2 -KUB -f/u cx -Monitor CBC/BMP, temperatures -Trend WBC -Surgery following -wound care per hospital protocol -Contact bleach precations Thank you for this consultation. Will continue to follow along with you. Discussed with RN. Subjective Allergies: Coded Allergies: No Known Allergies (Unverified , 01/18/15) Subjective Tm 101.5 WBC worsening fio2 30% Bcx NTD Objective Vital Signs Last 24 Hour Vital Signs Date Time Temp Pulse Resp B/P (MAP) Pulse Ox O2 Delivery O2 Flow Rate FiO2 01/27/18 11:00 113 15 119/74 (89) 100 01/27/18 10:47 116 26 30 01/27/18 10:00 113 14 115/67 (83) 100 01/27/18 09:11 121 26 30 01/27/18 09:00 115 16 119/67 (84) 94 01/27/18 08:00 30 01/27/18 08:00 99.9 120 18 122/73 (89) 94 99.9 01/27/18 08:00 Mechanical Ventilator 01/27/18 08:00 119 01/27/18 07:25 116 23 30 01/27/18 07:00 119 17 117/92 (100) 96 01/27/18 06:20 99.3 01/27/18 06:00 129 18 102/68 (79) 99 01/27/18 05:17 101.5 01/27/18 05:14 144 27 30 01/27/18 05:00 143 25 140/125 (130) 99 01/27/18 04:00 129 01/27/18 04:00 30 01/27/18 04:00 101.5 129 22 129/71 (90) 99 101.5 01/27/18 04:00 Mechanical Ventilator 01/27/18 03:20 120 20 30 01/27/18 03:00 124 19 119/67 (84) 100 01/27/18 02:00 122 12 121/71 (88) 100 01/27/18 01:00 126 19 119/71 (87) 99 01/27/18 00:54 125 18 30 01/27/18 00:00 122 01/27/18 00:00 Mechanical Ventilator 01/27/18 00:00 30 01/27/18 00:00 99.9 122 18 121/77 (92) 100 99.9 01/26/18 23:29 126 19 30 01/26/18 23:00 122 18 112/63 (79) 100 01/26/18 22:00 122 18 99/62 (74) 98 01/26/18 21:20 125 17 30 01/26/18 21:00 126 17 104/69 (81) 99 01/26/18 20:00 30 01/26/18 20:00 131 17 96/58 (71) 98 01/26/18 20:00 131 01/26/18 20:00 Mechanical Ventilator 01/26/18 19:15 137 20 30 01/26/18 19:00 100.6 132 19 92/49 (63) 97 100.6 01/26/18 18:00 138 20 99/64 (76) 97 01/26/18 17:39 101.0 01/26/18 17:05 144 22 30 01/26/18 17:00 101.0 146 26 116/62 (80) 97 101.0 01/26/18 16:00 Mechanical Ventilator 01/26/18 16:00 152 01/26/18 16:00 146 24 115/71 (86) 97 01/26/18 16:00 30 01/26/18 15:00 152 26 121/74 (90) 97 01/26/18 14:46 121 19 30 01/26/18 14:00 120 20 124/76 (92) 99 01/26/18 13:00 118 20 113/75 (88) 99 01/26/18 12:39 113 19 30 01/26/18 12:00 99.9 115 15 107/58 (74) 100 99.9 01/26/18 12:00 Mechanical Ventilator 01/26/18 12:00 30 01/26/18 12:00 108 Height (Feet): 5 Height (Inches): 3.00 Weight (Pounds): 184 Objective General Appearance: chronically ill HEENT: normocephalic, bilateral eye PERRL Neck: tracheotomy Respiratory: crackles, rhonchi Cardiovascular : tachycardia Gastrointestinal: Gtube present; significant abd distention with some grimacing upon palpation; diminished to absent bowel sounds Genitourinary: rock in place Musculoskeletal: other - contracted extremities Neurologic: other - nonverbal Skin: no rash or cellulitis Microbiology Date/Time Source Procedure Growth Status 01/24/18 18:00 Blood Blood Culture - Preliminary NO GROWTH AFTER 48 HOURS Resulted 01/24/18 17:10 Blood Blood Culture - Preliminary NO GROWTH AFTER 48 HOURS Resulted 01/24/18 17:10 Sputum Gram Stain - Final Resulted 01/24/18 17:10 Sputum Culture - Preliminary Gram Negative Bacillus 1 Gram Negative Bacillus 2 Resulted 01/26/18 04:04 Stool Clostridium difficile Toxin Assay - Final Complete Laboratory Tests Test 01/26/18 18:30 01/27/18 05:00 01/27/18 08:45 White Blood Count 40.9 K/UL (4.8-10.8) *H 41.7 K/UL (4.8-10.8) *H Red Blood Count 2.76 M/UL (4.20-5.40) L 2.65 M/UL (4.20-5.40) L Hemoglobin 8.0 G/DL (12.0-16.0) L 7.7 G/DL (12.0-16.0) L Hematocrit 25.1 % (37.0-47.0) L 24.3 % (37.0-47.0) L Mean Corpuscular Volume 91 FL (80-99) 92 FL (80-99) Mean Corpuscular Hemoglobin 29.2 PG (27.0-31.0) 29.1 PG (27.0-31.0) Mean Corpuscular Hemoglobin Concent 32.0 G/DL (32.0-36.0) 31.7 G/DL (32.0-36.0) L Red Cell Distribution Width 12.7 % (11.6-14.8) 12.4 % (11.6-14.8) Platelet Count 183 K/UL (150-450) 189 K/UL (150-450) Mean Platelet Volume 6.0 FL (6.5-10.1) L 6.4 FL (6.5-10.1) L Neutrophils (%) (Auto) % (45.0-75.0) % (45.0-75.0) Lymphocytes (%) (Auto) % (20.0-45.0) % (20.0-45.0) Monocytes (%) (Auto) % (1.0-10.0) % (1.0-10.0) Eosinophils (%) (Auto) % (0.0-3.0) % (0.0-3.0) Basophils (%) (Auto) % (0.0-2.0) % (0.0-2.0) Differential Total Cells Counted 100 100 Neutrophils % (Manual) 80 % (45-75) H 79 % (45-75) H Lymphocytes % (Manual) 8 % (20-45) L 14 % (20-45) L Monocytes % (Manual) 6 % (1-10) 3 % (1-10) Eosinophils % (Manual) 5 % (0-3) H 1 % (0-3) Basophils % (Manual) 0 % (0-2) 0 % (0-2) Band Neutrophils 1 % (0-8) 3 % (0-8) Platelet Estimate Adequate Adequate Platelet Morphology Normal Normal Polychromasia 1+ Hypochromasia 2+ 1+ Anisocytosis 1+ Sodium Level 142 MMOL/L (136-145) 143 MMOL/L (136-145) Potassium Level 3.8 MMOL/L (3.5-5.1) 4.0 MMOL/L (3.5-5.1) Chloride Level 113 MMOL/L (98-107) H 114 MMOL/L (98-107) H Carbon Dioxide Level 20 MMOL/L (21-32) L 21 MMOL/L (21-32) Anion Gap 9 mmol/L (5-15) 8 mmol/L (5-15) Blood Urea Nitrogen 20 mg/dL (7-18) H 18 mg/dL (7-18) Creatinine 1.2 MG/DL (0.55-1.30) 1.2 MG/DL (0.55-1.30) Estimat Glomerular Filtration Rate > 60 mL/min (>60) > 60 mL/min (>60) Glucose Level 110 MG/DL (74-106) H 86 MG/DL (74-106) Lactic Acid Level 1.00 mmol/L (0.4-2.0) Calcium Level 6.9 MG/DL (8.5-10.1) L 7.0 MG/DL (8.5-10.1) L Total Bilirubin 0.2 MG/DL (0.2-1.0) 0.2 MG/DL (0.2-1.0) Aspartate Amino Transf (AST/SGOT) 14 U/L (15-37) L 17 U/L (15-37) Alanine Aminotransferase (ALT/SGPT) 61 U/L (12-78) 57 U/L (12-78) Alkaline Phosphatase 95 U/L (46-116) 96 U/L (46-116) Troponin I 0.000 ng/mL (0.000-0.056) Total Protein 4.8 G/DL (6.4-8.2) L 5.2 G/DL (6.4-8.2) L Albumin 1.3 G/DL (3.4-5.0) L 1.2 G/DL (3.4-5.0) L Globulin 3.5 g/dL 4.0 g/dL Albumin/Globulin Ratio 0.4 (1.0-2.7) L 0.3 (1.0-2.7) L Phosphorus Level 3.2 MG/DL (2.5-4.9) Magnesium Level 1.1 MG/DL (1.8-2.4) L Arterial Blood pH 7.398 (7.350-7.450) Arterial Blood Partial Pressure CO2 32.1 mmHg (35.0-45.0) L Arterial Blood Partial Pressure O2 110.1 mmHg (75.0-100.0) H Arterial Blood HCO3 19.4 mmol/L (22.0-26.0) L Arterial Blood Oxygen Saturation 97.9 % (92.0-98.0) Arterial Blood Base Excess -4.8 Benjie Test Positive Current Medications Medications (Trade) Dose Ordered Sig/Kel Route PRN Reason Start Time Stop Time Status Last Admin Dose Admin Acetaminophen (Tylenol) 650 mg Q4H PRN ORAL FEVER 01/18/18 13:00 02/17/18 08:59 01/27/18 05:17 Chlorhexidine Gluconate (Neela-Hex 2%) 1 applic DAILY@1999 TOPIC 01/20/18 20:00 02/19/18 19:59 01/26/18 20:45 Dextrose (Dextrose 50%) 25 ml STAT PRN IV Hypoglycemia 01/19/18 07:15 02/17/18 07:14 Dextrose (Dextrose 50%) 50 ml STAT PRN IV Hypoglycemia 01/19/18 07:30 02/17/18 07:29 Heparin Sodium (Porcine) (Heparin 5000 units/ml) 5,000 units EVERY 12 HOURS SUBQ 01/18/18 21:00 02/17/18 08:59 01/27/18 08:51 Lactated Ringer's 1,000 ml @ 50 mls/hr Q20H IV 01/26/18 19:30 02/25/18 19:29 01/26/18 18:45 Levetiracetam 100 ml @ 400 mls/hr Q12HR IVPB 01/18/18 22:30 02/17/18 22:29 01/27/18 08:47 Metronidazole 100 ml @ 100 mls/hr Q8HR IVPB 01/26/18 11:00 02/02/18 10:59 01/27/18 05:49 Micafungin Sodium 100 mg/Sodium Chloride 110 ml @ 110 mls/hr Q24H IVPB 01/26/18 20:30 02/02/18 20:29 01/26/18 20:45 Ondansetron HCl (Zofran) 4 mg Q6H PRN IVP Nausea & Vomiting 01/18/18 13:15 02/17/18 07:14 01/22/18 01:17 Pantoprazole (Protonix) 40 mg Q12HR IV 01/19/18 21:00 02/17/18 08:59 01/27/18 08:47 Phenytoin 150 mg/ Sodium Chloride 58 ml @ 114 mls/hr EVERY 12 HOURS IVPB 01/18/18 22:30 02/17/18 22:29 01/27/18 09:15 Polyethylene Glycol (Miralax) 17 gm DAILYPRN PRN ORAL Constipation 01/19/18 07:15 02/17/18 07:14 Tigecycline 50 mg/ Dextrose 110 ml @ 220 mls/hr EVERY 12 HOURS IVPB 01/25/18 23:00 02/01/18 22:59 01/27/18 09:27 Vancomycin HCl (Vancomycin) 125 mg FOUR TIMES A DAY ORAL 01/25/18 18:00 02/01/18 17:59 01/27/18 08:47 Amelia Bah M.D. Jan 27, 2018 12:21
--- NOTE | 2018-01-27 13:26 | Internal Med Progress Note ---
Subjective Physician Name Adrian Porter Attending Physician Guillermo Morel MD Current Medications Medications (Trade) Dose Ordered Sig/Kel Route PRN Reason Start Time Stop Time Status Last Admin Dose Admin Acetaminophen (Tylenol) 650 mg Q4H PRN ORAL FEVER 01/18/18 13:00 02/17/18 08:59 01/27/18 05:17 Chlorhexidine Gluconate (Neela-Hex 2%) 1 applic DAILY@2000 TOPIC 01/20/18 20:00 02/19/18 19:59 01/26/18 20:45 Dextrose (Dextrose 50%) 25 ml STAT PRN IV Hypoglycemia 01/19/18 07:15 02/17/18 07:14 Dextrose (Dextrose 50%) 50 ml STAT PRN IV Hypoglycemia 01/19/18 07:30 02/17/18 07:29 Heparin Sodium (Porcine) (Heparin 5000 units/ml) 5,000 units EVERY 12 HOURS SUBQ 01/18/18 21:00 02/17/18 08:59 01/27/18 08:51 Lactated Ringer's 1,000 ml @ 50 mls/hr Q20H IV 01/26/18 19:30 02/25/18 19:29 01/26/18 18:45 Levetiracetam 100 ml @ 400 mls/hr Q12HR IVPB 01/18/18 22:30 02/17/18 22:29 01/27/18 08:47 Metronidazole 100 ml @ 100 mls/hr Q8HR IVPB 01/26/18 11:00 02/02/18 10:59 01/27/18 05:49 Micafungin Sodium 100 mg/Sodium Chloride 110 ml @ 110 mls/hr Q24H IVPB 01/26/18 20:30 02/02/18 20:29 01/26/18 20:45 Ondansetron HCl (Zofran) 4 mg Q6H PRN IVP Nausea & Vomiting 01/18/18 13:15 02/17/18 07:14 01/22/18 01:17 Pantoprazole (Protonix) 40 mg Q12HR IV 01/19/18 21:00 02/17/18 08:59 01/27/18 08:47 Phenytoin 150 mg/ Sodium Chloride 58 ml @ 114 mls/hr EVERY 12 HOURS IVPB 01/18/18 22:30 02/17/18 22:29 01/27/18 09:15 Polyethylene Glycol (Miralax) 17 gm DAILYPRN PRN ORAL Constipation 01/19/18 07:15 02/17/18 07:14 Tigecycline 50 mg/ Dextrose 110 ml @ 220 mls/hr EVERY 12 HOURS IVPB 01/25/18 23:00 02/01/18 22:59 01/27/18 09:27 Vancomycin HCl (Vancomycin) 125 mg FOUR TIMES A DAY ORAL 01/25/18 18:00 02/01/18 17:59 01/27/18 08:47 Allergies: Coded Allergies: No Known Allergies (Unverified , 01/18/15) Subjective 37 YO F admitted with abdominal distention. S/P cardiac arrest. S/P exploratory laparotomy 01/19/18. S/P sigmoidectomy and hemicolectomy 01/21/18. Cover for Int Med-Dr Morel. Intubated and sedated. ICU Objective Last Vital Signs Date Time Temp Pulse Resp B/P (MAP) Pulse Ox O2 Delivery O2 Flow Rate FiO2 01/27/18 13:09 116 19 30 01/27/18 12:00 99.3 118/75 (89) 100 99.3 01/27/18 12:00 Mechanical Ventilator 01/21/18 19:00 30.0 Laboratory Tests Test 01/26/18 18:30 01/27/18 05:00 01/27/18 08:45 White Blood Count 40.9 K/UL (4.8-10.8) *H 41.7 K/UL (4.8-10.8) *H Red Blood Count 2.76 M/UL (4.20-5.40) L 2.65 M/UL (4.20-5.40) L Hemoglobin 8.0 G/DL (12.0-16.0) L 7.7 G/DL (12.0-16.0) L Hematocrit 25.1 % (37.0-47.0) L 24.3 % (37.0-47.0) L Mean Corpuscular Volume 91 FL (80-99) 92 FL (80-99) Mean Corpuscular Hemoglobin 29.2 PG (27.0-31.0) 29.1 PG (27.0-31.0) Mean Corpuscular Hemoglobin Concent 32.0 G/DL (32.0-36.0) 31.7 G/DL (32.0-36.0) L Red Cell Distribution Width 12.7 % (11.6-14.8) 12.4 % (11.6-14.8) Platelet Count 183 K/UL (150-450) 189 K/UL (150-450) Mean Platelet Volume 6.0 FL (6.5-10.1) L 6.4 FL (6.5-10.1) L Neutrophils (%) (Auto) % (45.0-75.0) % (45.0-75.0) Lymphocytes (%) (Auto) % (20.0-45.0) % (20.0-45.0) Monocytes (%) (Auto) % (1.0-10.0) % (1.0-10.0) Eosinophils (%) (Auto) % (0.0-3.0) % (0.0-3.0) Basophils (%) (Auto) % (0.0-2.0) % (0.0-2.0) Differential Total Cells Counted 100 100 Neutrophils % (Manual) 80 % (45-75) H 79 % (45-75) H Lymphocytes % (Manual) 8 % (20-45) L 14 % (20-45) L Monocytes % (Manual) 6 % (1-10) 3 % (1-10) Eosinophils % (Manual) 5 % (0-3) H 1 % (0-3) Basophils % (Manual) 0 % (0-2) 0 % (0-2) Band Neutrophils 1 % (0-8) 3 % (0-8) Platelet Estimate Adequate Adequate Platelet Morphology Normal Normal Polychromasia 1+ Hypochromasia 2+ 1+ Anisocytosis 1+ Sodium Level 142 MMOL/L (136-145) 143 MMOL/L (136-145) Potassium Level 3.8 MMOL/L (3.5-5.1) 4.0 MMOL/L (3.5-5.1) Chloride Level 113 MMOL/L (98-107) H 114 MMOL/L (98-107) H Carbon Dioxide Level 20 MMOL/L (21-32) L 21 MMOL/L (21-32) Anion Gap 9 mmol/L (5-15) 8 mmol/L (5-15) Blood Urea Nitrogen 20 mg/dL (7-18) H 18 mg/dL (7-18) Creatinine 1.2 MG/DL (0.55-1.30) 1.2 MG/DL (0.55-1.30) Estimat Glomerular Filtration Rate > 60 mL/min (>60) > 60 mL/min (>60) Glucose Level 110 MG/DL (74-106) H 86 MG/DL (74-106) Lactic Acid Level 1.00 mmol/L (0.4-2.0) Calcium Level 6.9 MG/DL (8.5-10.1) L 7.0 MG/DL (8.5-10.1) L Total Bilirubin 0.2 MG/DL (0.2-1.0) 0.2 MG/DL (0.2-1.0) Aspartate Amino Transf (AST/SGOT) 14 U/L (15-37) L 17 U/L (15-37) Alanine Aminotransferase (ALT/SGPT) 61 U/L (12-78) 57 U/L (12-78) Alkaline Phosphatase 95 U/L (46-116) 96 U/L (46-116) Troponin I 0.000 ng/mL (0.000-0.056) Total Protein 4.8 G/DL (6.4-8.2) L 5.2 G/DL (6.4-8.2) L Albumin 1.3 G/DL (3.4-5.0) L 1.2 G/DL (3.4-5.0) L Globulin 3.5 g/dL 4.0 g/dL Albumin/Globulin Ratio 0.4 (1.0-2.7) L 0.3 (1.0-2.7) L Phosphorus Level 3.2 MG/DL (2.5-4.9) Magnesium Level 1.1 MG/DL (1.8-2.4) L Arterial Blood pH 7.398 (7.350-7.450) Arterial Blood Partial Pressure CO2 32.1 mmHg (35.0-45.0) L Arterial Blood Partial Pressure O2 110.1 mmHg (75.0-100.0) H Arterial Blood HCO3 19.4 mmol/L (22.0-26.0) L Arterial Blood Oxygen Saturation 97.9 % (92.0-98.0) Arterial Blood Base Excess -4.8 Benjie Test Positive Microbiology Date/Time Source Procedure Growth Status 01/24/18 18:00 Blood Blood Culture - Preliminary NO GROWTH AFTER 48 HOURS Resulted 01/24/18 17:10 Blood Blood Culture - Preliminary NO GROWTH AFTER 48 HOURS Resulted 01/24/18 17:10 Sputum Gram Stain - Final Resulted 01/24/18 17:10 Sputum Culture - Preliminary Gram Negative Bacillus 1 Gram Negative Bacillus 2 Resulted 01/26/18 04:04 Stool Clostridium difficile Toxin Assay - Final Complete Intake and Output 01/26/18 01/27/18 19:00 07:00 Intake Total 1790.668 ml 1748 ml Output Total 2390 ml 1890 ml Balance -599.332 ml -142 ml IV Total 1070.668 ml 1028 ml Tube Feeding 720 ml 720 ml Output Urine Total 1930 ml 1450 ml Stool Total 300 ml 250 ml Drainage Total 160 ml 190 ml # Bowel Movements 3 Objective General Appearance: WD/WN, lethargic EENT: normal ENT inspection Neck: non-tender, normal alignment, supple, other - tracheostomy Cardiovascular: normal peripheral pulses, normal rate, regular rhythm, regularly irregular, no gallop/murmur, no JVD Respiratory/Chest: Mech vent; chest wall non-tender, no accessory muscle use, rhonchi - bilaterally, other - Mech Vent Abdomen: normal bowel sounds, non tender, soft, no organomegaly, no mass Extremities: normal inspection Skin: normal pigmentation, warm/dry Assessment/Plan Problem List: (1) Incarcerated ventral hernia Assessment & Plan: S/P exploratory laparotomy on 01/19/18-see surgery note. S/P sigmoidectomy, omentectomy and hemicolectomy on 01/21/18. Continue vanco, flagyl , tigecycline and micafungin per ID (2) Volvulus of sigmoid colon (3) Abdominal distension Assessment & Plan: Resolving-see surgery note. (4) Cardiac arrest Assessment & Plan: see cardiology note (5) Seizure disorder Assessment & Plan: Continue keppra and dilantin (6) Anemia (7) Hypertension Assessment & Plan: Hypotensived. Currently on pressors. (8) Encephalopathy (9) Dysphagia (10) Tachycardia (11) Severe sepsis Assessment & Plan: See ID note. (12) Anoxic brain injury (13) Respiratory failure (14) Leukocytosis Assessment & Plan: Worsening. See ID note Assessment/Plan prognosis is guarded. Adrian Porter MD Jan 27, 2018 13:26
--- NOTE | 2018-01-27 13:52 | Diagnostic Imaging Report ---
Indication: Abdominal pain Comparison: None Single view of the abdomen obtained Findings: Bowel gas pattern is nonspecific. There is moderate stool within the rectal vault. The evaluation is limited by rotation. Compared to last study the degree of stool in the colon has statistically improved. IMPRESSION: Moderate stool in the rectal vault but overall improved compared to the last study done on January 18, 2018.
--- NOTE | 2018-01-27 14:08 | GI Initial Consult Note ---
History of Present Illness General Date patient seen: Jan 27, 2018 Time patient seen: 14:08 Reason for Hospitalization: Altered Level of Consciousness Referring physician: KARO HODGE Reason for Consultation: GI BLEED Present Illness HPI 37-year-old female presents ED for evaluation. [facility] for [facility] distress, tachycardia. Febrile in triage. History of anoxic brain injury. On trach/ventilator with G-tube. Upon arrival patient unable to provide any additional history at this time. History of anoxic brain injury. No other aggravating or relieving factors. Denies any other associated symptoms This patient is s/p exploratory lap procedures noted below, taken a 2nd time to surgery for malposition G-tube that was causing abdominal peritonitis. GI consulted for GI bleed. ROS limited, seen in ICU on vent noted with heme colored liquid coming out from the colostomy bag. GTFs currently running. Presents today with sepsis with a white count over 40K, anemia, hypercoagulability, hypomagnesemia, elevated lipase levels and folate deficiency. No iron deficiency. Cdiff negative. Unknown history of endoscopy / colonoscopy. OPERATION PERFORMED: 1. Planned re-exploration of abdomen. 2. Sigmoid colectomy for volvulus. 3. Takedown of splenic flexure. 4. Left hemicolectomy. 5. Creation of transverse colostomy. 6. Abdominal closure. Home Meds Reported Medications Omeprazole (OMEPRAZOLE) 40 Mg Capsule.dr, 40 MG GT DAILY, CAP 01/18/18 Heparin Sod (Porcine) (HEPARIN SODIUM*) 5 000/1 Ml Vial, 5000 UNITS SUBQ DAILY, VIAL 01/18/18 Albuterol Sulfate* (ALBUTEROL SULFATE HHN*) 2.5 Mg/3 Ml Vial.neb, 3 ML [id number] Q3HR PRN for Shortness of Breath, EA 01/18/18 Ondansetron Hcl (ZOFRAN) 2 Mg/1 Ml Vial, 8 MG IM Q8HR PRN for Nausea & Vomiting , VIAL 05/25/16 Ondansetron Hcl* (ZOFRAN*) 8 Mg Tablet, 8 MG ORAL Q6H PRN for Nausea & Vomiting , #4 TAB 0 Refills 05/25/16 Ondansetron* (ZOFRAN*) 4 Mg Tablet, 8 MG ORAL Q6H PRN for Nausea & Vomiting, TAB 05/25/16 Cran/Vitc/Mannose/Inulin/Brom (UTI-STAT LIQUID) 3,875 Mg/30 Ml Liquid, 30 ML GT BID, ML 05/25/16 Tramadol Hcl* (ULTRAM*) 50 Mg Tablet, 50 MG GT DAILY PRN for For Pain, #30 TAB 0 Refills 05/25/16 Enoxaparin* (LOVENOX*) 40 Mg/0.4 Ml Inj, 50 MG SUBQ DAILY 05/25/16 Levetiracetam (Keppra) 500 Mg/5 Ml Vial, 500 MG IV, VIAL 05/25/16 Levetiracetam (Keppra) 250 Mg Tablet, 1000 MG GT EVERY 12 HOURS, #50 TAB 0 Refills 05/25/16 [dulcolax sup] No Conflict Check, 10 MG RC Q12HR PRN for Constipation 05/25/16 [dilantin susp] No Conflict Check, 200 MG GT Q12HR 05/25/16 Carvedilol (Coreg) 25 Mg Tablet, 25 MG GT EVERY 12 HOURS, TAB 05/25/16 Docusate Sodium* (COLACE*) 100 Mg Capsule, 100 MG GT TWICE A DAY, CAP 05/25/16 Acetylcysteine (Acetylcysteine) 100 Mg/Ml Soln, 20 % HHN Q6HR 01/18/15 Levalbuterol Hcl (XOPENEX*) 0.63 Mg/3 Ml Vial.neb, 0.63 MG HHN Q6H for 30 Days, VIAL 01/18/15 Ferrous Sulfate* (FERROUS SULFATE*) 325 Mg Tablet, 300 MG GT THREE TIMES A DAY, #90 TAB 0 Refills 01/18/15 Zinc Sulfate (ZINC SULFATE*) 220 Mg Capsule, 220 MG GT DAILY, CAP 0 Refills 01/18/15 Vit C/Ascorbate Ca/Ascorb Sod (VITAMIN C 500 MG/15 ML LIQUID) 500 Mg/15 Ml Liquid, 500 MG GT DAILY, ML 01/18/15 Multivitamin Liquid* (MULTI-DELYN*) 237 Ml Liquid, 5 ML GT DAILY, ML 01/18/15 [prostat awc] No Conflict Check, 30 ML GT DAILY 01/18/15 Acetaminophen (Tylenol) 325 Mg Tab, 650 MG GT Q6H PRN for Mild Pain/Temp > 100.5 , TAB 0 Refills 01/18/15 Lorazepam* (ATIVAN*) 2 Mg/1 Ml Vial, 2 MG IV Q4H PRN for For Seizures, VIAL 01/18/15 Dextran 70/Hypromellose (ARTIFICIAL TEARS EYE DROPS*) 15 Ml Drops, 1 DROP BOTH EYES Q4HR PRN for Dry Eyes, #15 ML 0 Refills 01/18/15 Ondansetron* (ZOFRAN*) 4 Mg/2 Ml Vial, 4 MG IM Q8H PRN for Nausea & Vomiting, VIAL 01/18/15 Phenytoin Sodium Extended* (DILANTIN*) 100 Mg Capsule, 150 MG GT Q12HR, CAP 0 Refills 01/18/15 Levetiracetam (KEPPRA) 1,000 Mg Tablet, 1000 MG ORAL BID, #30 TAB 0 Refills 01/18/15 Carvedilol (Coreg) 25 Mg Tab, 25 MG ORAL EVERY 12 HOURS, TAB 01/18/15 Esomeprazole Magnesium (NEXIUM) 40 Mg Capsule.dr, 40 MG GT DAILY, CAP sprikle in applesauce 01/18/15 Lactobacillus Acidophilus (ACIDOPHILUS) 1 Each Capsule, 2 EACH GT TID, CAP 01/18/15 Hydrogen Peroxide (HYDROGEN PEROXIDE) 473 Ml Solution, 473 ML MC BID for oral mouthwash 01/18/15 Chlorhexidine Gluconate (CHLORHEXIDINE GLUCONATE) 473 Ml Mouthwash, 473 ML MM BID, ML 01/18/15 Magnesium Oxide (MAG-OXIDE) 400 Mg Tablet, 400 MG GT BID, TAB 01/18/15 Med list reviewed/reconciled: Yes Allergies: Coded Allergies: No Known Allergies (Unverified , 01/18/15) Patient History Limited by: medical condition History Provided By: Medical Record PMH Narrative Past Medical History: HTN, seizures, other - anoxic brain injury Past Surgical History: other - trach/vent Pertinent Family History: none Social History: Denies: smoking, alcohol use, drug use Last Menstrual Period: ukn Now: No Immunizations: UTD Reviewed Nursing Documentation: PMH: Agreed; PSxH: Agreed Nursing Documentation-PMH Hx Hypertension: Yes Hx Cancer: No Hx Gastrointestinal Problems: Yes - g-tube Hx Neurological Problems: Yes - Anoxic brain damage Hx Seizures: Yes Hx Aphasia: Yes Review of Systems All Other Systems: negative except mentioned in HPI Physical Exam Vital Signs Date Time Temp Pulse Resp B/P (MAP) Pulse Ox O2 Delivery O2 Flow Rate FiO2 01/23/18 07:00 95 19 122/63 (82) 100 01/23/18 08:00 98.5 98.5 01/23/18 08:00 Mechanical Ventilator 01/23/18 08:00 30 Labs Laboratory Tests Test 01/26/18 18:30 01/27/18 05:00 01/27/18 08:45 White Blood Count 40.9 K/UL (4.8-10.8) *H 41.7 K/UL (4.8-10.8) *H Red Blood Count 2.76 M/UL (4.20-5.40) L 2.65 M/UL (4.20-5.40) L Hemoglobin 8.0 G/DL (12.0-16.0) L 7.7 G/DL (12.0-16.0) L Hematocrit 25.1 % (37.0-47.0) L 24.3 % (37.0-47.0) L Mean Corpuscular Volume 91 FL (80-99) 92 FL (80-99) Mean Corpuscular Hemoglobin 29.2 PG (27.0-31.0) 29.1 PG (27.0-31.0) Mean Corpuscular Hemoglobin Concent 32.0 G/DL (32.0-36.0) 31.7 G/DL (32.0-36.0) L Red Cell Distribution Width 12.7 % (11.6-14.8) 12.4 % (11.6-14.8) Platelet Count 183 K/UL (150-450) 189 K/UL (150-450) Mean Platelet Volume 6.0 FL (6.5-10.1) L 6.4 FL (6.5-10.1) L Neutrophils (%) (Auto) % (45.0-75.0) % (45.0-75.0) Lymphocytes (%) (Auto) % (20.0-45.0) % (20.0-45.0) Monocytes (%) (Auto) % (1.0-10.0) % (1.0-10.0) Eosinophils (%) (Auto) % (0.0-3.0) % (0.0-3.0) Basophils (%) (Auto) % (0.0-2.0) % (0.0-2.0) Differential Total Cells Counted 100 100 Neutrophils % (Manual) 80 % (45-75) H 79 % (45-75) H Lymphocytes % (Manual) 8 % (20-45) L 14 % (20-45) L Monocytes % (Manual) 6 % (1-10) 3 % (1-10) Eosinophils % (Manual) 5 % (0-3) H 1 % (0-3) Basophils % (Manual) 0 % (0-2) 0 % (0-2) Band Neutrophils 1 % (0-8) 3 % (0-8) Platelet Estimate Adequate Adequate Platelet Morphology Normal Normal Polychromasia 1+ Hypochromasia 2+ 1+ Anisocytosis 1+ Sodium Level 142 MMOL/L (136-145) 143 MMOL/L (136-145) Potassium Level 3.8 MMOL/L (3.5-5.1) 4.0 MMOL/L (3.5-5.1) Chloride Level 113 MMOL/L (98-107) H 114 MMOL/L (98-107) H Carbon Dioxide Level 20 MMOL/L (21-32) L 21 MMOL/L (21-32) Anion Gap 9 mmol/L (5-15) 8 mmol/L (5-15) Blood Urea Nitrogen 20 mg/dL (7-18) H 18 mg/dL (7-18) Creatinine 1.2 MG/DL (0.55-1.30) 1.2 MG/DL (0.55-1.30) Estimat Glomerular Filtration Rate > 60 mL/min (>60) > 60 mL/min (>60) Glucose Level 110 MG/DL (74-106) H 86 MG/DL (74-106) Lactic Acid Level 1.00 mmol/L (0.4-2.0) Calcium Level 6.9 MG/DL (8.5-10.1) L 7.0 MG/DL (8.5-10.1) L Total Bilirubin 0.2 MG/DL (0.2-1.0) 0.2 MG/DL (0.2-1.0) Aspartate Amino Transf (AST/SGOT) 14 U/L (15-37) L 17 U/L (15-37) Alanine Aminotransferase (ALT/SGPT) 61 U/L (12-78) 57 U/L (12-78) Alkaline Phosphatase 95 U/L (46-116) 96 U/L (46-116) Troponin I 0.000 ng/mL (0.000-0.056) Total Protein 4.8 G/DL (6.4-8.2) L 5.2 G/DL (6.4-8.2) L Albumin 1.3 G/DL (3.4-5.0) L 1.2 G/DL (3.4-5.0) L Globulin 3.5 g/dL 4.0 g/dL Albumin/Globulin Ratio 0.4 (1.0-2.7) L 0.3 (1.0-2.7) L Phosphorus Level 3.2 MG/DL (2.5-4.9) Magnesium Level 1.1 MG/DL (1.8-2.4) L Arterial Blood pH 7.398 (7.350-7.450) Arterial Blood Partial Pressure CO2 32.1 mmHg (35.0-45.0) L Arterial Blood Partial Pressure O2 110.1 mmHg (75.0-100.0) H Arterial Blood HCO3 19.4 mmol/L (22.0-26.0) L Arterial Blood Oxygen Saturation 97.9 % (92.0-98.0) Arterial Blood Base Excess -4.8 Benjie Test Positive General Appearance: Stupor EENT: normal ENT inspection Neck: supple Respiratory: no respiratory distress, other - intubated Cardiovascular: normal rate Gastrointestinal: soft, gt - c/d/i, other - surgical incisional sites/RENÉ drain x2 Rectal: deferred Genitourinary: no CVA tenderness Skin: normal inspection, normal color, no rash, warm/dry, palpation normal, well hydrated Lymphatic: normal inspection, no adenopathy Current Medications Current Medications Medications (Trade) Dose Ordered Sig/Kel Route PRN Reason Start Time Stop Time Status Last Admin Dose Admin Acetaminophen (Tylenol) 650 mg Q4H PRN ORAL FEVER 01/18/18 13:00 02/17/18 08:59 01/27/18 05:17 Chlorhexidine Gluconate (Neela-Hex 2%) 1 applic DAILY@1999 TOPIC 01/20/18 20:00 02/19/18 19:59 01/26/18 20:45 Dextrose (Dextrose 50%) 25 ml STAT PRN IV Hypoglycemia 01/19/18 07:15 02/17/18 07:14 Dextrose (Dextrose 50%) 50 ml STAT PRN IV Hypoglycemia 01/19/18 07:30 02/17/18 07:29 Heparin Sodium (Porcine) (Heparin 5000 units/ml) 5,000 units EVERY 12 HOURS SUBQ 01/18/18 21:00 02/17/18 08:59 01/27/18 08:51 Lactated Ringer's 1,000 ml @ 50 mls/hr Q20H IV 01/26/18 19:30 02/25/18 19:29 01/26/18 18:45 Levetiracetam 100 ml @ 400 mls/hr Q12HR IVPB 01/18/18 22:30 02/17/18 22:29 01/27/18 08:47 Metronidazole 100 ml @ 100 mls/hr Q8HR IVPB 01/26/18 11:00 02/02/18 10:59 01/27/18 05:49 Micafungin Sodium 100 mg/Sodium Chloride 110 ml @ 110 mls/hr Q24H IVPB 01/26/18 20:30 02/02/18 20:29 01/26/18 20:45 Ondansetron HCl (Zofran) 4 mg Q6H PRN IVP Nausea & Vomiting 01/18/18 13:15 02/17/18 07:14 01/22/18 01:17 Pantoprazole (Protonix) 40 mg Q12HR IV 01/19/18 21:00 02/17/18 08:59 01/27/18 08:47 Phenytoin 150 mg/ Sodium Chloride 58 ml @ 114 mls/hr EVERY 12 HOURS IVPB 01/18/18 22:30 02/17/18 22:29 01/27/18 09:15 Polyethylene Glycol (Miralax) 17 gm DAILYPRN PRN ORAL Constipation 01/19/18 07:15 02/17/18 07:14 Tigecycline 50 mg/ Dextrose 110 ml @ 220 mls/hr EVERY 12 HOURS IVPB 01/25/18 23:00 02/01/18 22:59 01/27/18 09:27 Vancomycin HCl (Vancomycin) 125 mg FOUR TIMES A DAY ORAL 01/25/18 18:00 02/01/18 17:59 01/27/18 08:47 GI: Plan Problems: (1) Feeding by G-tube (2) Anoxic brain injury (3) Severe sepsis (4) Anemia (5) GI bleed (6) Volvulus of sigmoid colon Plan anemia work up reviewed - folate deficiency - no iron deficiency - stable H&H @ this time active GI bleed, most likely due to recent surgery cdiff negative lipase elevation defer any GI procedures given recent surgery gastric lavage evaluate for any UGIB stop GTFs at this time to allow for bowel rest IV hydration + electrolyte correction monitor H&H, appears to be at baseline now, transfuse prn per hematology folate ppi BID trend lipase fu labs Discussed with Dr. Reese. Thank you for this patient referral, we will follow. The patient was seen and examined at bedside and all new and available data was reviewed in the patients chart. I agree with the above findings, impression and plan. (Patient seen earlier today. Signature stamp does not reflect patient encounter time.). - MD Alyce GarciaCopper Queen Community HospitalSed[facility] Jan 27, 2018 14:08
[2018-01-27 15:17] LABS: 1HR INCUBATION PT 1:1NP 10.8 sec (9.6-11.5); PT 1:1NP 10.8 sec (9.6-11.5)
--- NOTE | 2018-01-27 15:48 | Cardiology Progress Note ---
Assessment/Plan Status: not improved Assessment/Plan (1) Acute on chronic respiratory failure (2) Sepsis (3) Anoxic brain injury (4) Feeding by G-tube (5) Tachycardia (6) S/P exploratory laparotomy, left hemicolectomy Continue Abx No procedures indicated per GI CT abdomen reviewed Continue respiratory support G tube to suction, feels held Wound care per surgery Replete electrolytes, IV lactated ringers Stress steroids stopped due to rising WBC Albumin prn hypotension Pressors off Echo reviewed - stable, no heart failure No indication to start beta blockers for tachycardia, will need to closely monitor hemodynamics in setting of sepsis Poor prognosis Subjective Cardiovascular: Reports: no symptoms Respiratory: Reports: no symptoms Gastrointestinal/Abdominal: Reports: no symptoms Genitourinary: Reports: no symptoms Subjective WBC continues to be elevated and rising, on broad abx H/H dropped Ostomy with output still - c.diff collected Remains tachycardic CT abdomen done with post operative ileus G tube on LIWS, no output Sputum cultures positive C diff negative Objective Last 24 Hour Vital Signs Date Time Temp Pulse Resp B/P (MAP) Pulse Ox O2 Delivery O2 Flow Rate FiO2 01/27/18 15:00 120 20 124/64 (84) 99 01/27/18 14:54 121 18 30 01/27/18 14:00 122 18 120/64 (82) 99 01/27/18 13:09 116 19 30 01/27/18 13:00 118 19 108/93 (98) 99 01/27/18 12:00 99.3 104 15 118/75 (89) 100 99.3 01/27/18 12:00 30 01/27/18 12:00 Mechanical Ventilator 01/27/18 11:00 113 15 119/74 (89) 100 01/27/18 10:47 116 26 30 01/27/18 10:00 113 14 115/67 (83) 100 01/27/18 09:11 121 26 30 01/27/18 09:00 115 16 119/67 (84) 94 01/27/18 08:00 30 01/27/18 08:00 99.9 120 18 122/73 (89) 94 99.9 01/27/18 08:00 Mechanical Ventilator 01/27/18 08:00 119 01/27/18 07:25 116 23 30 01/27/18 07:00 119 17 117/92 (100) 96 7/11/18 06:20 99.3 01/27/18 06:00 129 18 102/68 (79) 99 01/27/18 05:17 101.5 01/27/18 05:14 144 27 30 01/27/18 05:00 143 25 140/125 (130) 99 01/27/18 04:00 129 01/27/18 04:00 30 01/27/18 04:00 101.5 129 22 129/71 (90) 99 101.5 01/27/18 04:00 Mechanical Ventilator 01/27/18 03:20 120 20 30 01/27/18 03:00 124 19 119/67 (84) 100 01/27/18 02:00 122 12 121/71 (88) 100 01/27/18 01:00 126 19 119/71 (87) 99 01/27/18 00:54 125 18 30 01/27/18 00:00 122 01/27/18 00:00 Mechanical Ventilator 01/27/18 00:00 30 01/27/18 00:00 99.9 122 18 121/77 (92) 100 99.9 01/26/18 23:29 126 19 30 01/26/18 23:00 122 18 112/63 (79) 100 01/26/18 22:00 122 18 99/62 (74) 98 01/26/18 21:20 125 17 30 01/26/18 21:00 126 17 104/69 (81) 99 01/26/18 20:00 30 01/26/18 20:00 131 17 96/58 (71) 98 01/26/18 20:00 131 01/26/18 20:00 Mechanical Ventilator 01/26/18 19:15 137 20 30 01/26/18 19:00 100.6 132 19 92/49 (63) 97 100.6 01/26/18 18:00 138 20 99/64 (76) 97 01/26/18 17:39 101.0 01/26/18 17:05 144 22 30 01/26/18 17:00 101.0 146 26 116/62 (80) 97 101.0 01/26/18 16:00 Mechanical Ventilator 01/26/18 16:00 152 01/26/18 16:00 146 24 115/71 (86) 97 01/26/18 16:00 30 General Appearance: on vent EENT: PERRL/EOMI Neck: non-tender Rhythm: ST Cardiovascular: normal peripheral pulses Respiratory/Chest: chest wall non-tender Abdomen: hypoactive bowel sounds Extremities: normal range of motion Neurologic: abnormal CN, motor weakness, sensory deficit, unresponsiveness Intake and Output 01/26/18 01/27/18 19:00 07:00 Intake Total 1790.668 ml 1748 ml Output Total 2390 ml 1890 ml Balance -599.332 ml -142 ml IV Total 1070.668 ml 1028 ml Tube Feeding 720 ml 720 ml Output Urine Total 1930 ml 1450 ml Stool Total 300 ml 250 ml Drainage Total 160 ml 190 ml # Bowel Movements 3 Laboratory Tests Test 01/26/18 18:30 01/27/18 05:00 01/27/18 08:45 White Blood Count 40.9 K/UL (4.8-10.8) *H 41.7 K/UL (4.8-10.8) *H Red Blood Count 2.76 M/UL (4.20-5.40) L 2.65 M/UL (4.20-5.40) L Hemoglobin 8.0 G/DL (12.0-16.0) L 7.7 G/DL (12.0-16.0) L Hematocrit 25.1 % (37.0-47.0) L 24.3 % (37.0-47.0) L Mean Corpuscular Volume 91 FL (80-99) 92 FL (80-99) Mean Corpuscular Hemoglobin 29.2 PG (27.0-31.0) 29.1 PG (27.0-31.0) Mean Corpuscular Hemoglobin Concent 32.0 G/DL (32.0-36.0) 31.7 G/DL (32.0-36.0) L Red Cell Distribution Width 12.7 % (11.6-14.8) 12.4 % (11.6-14.8) Platelet Count 183 K/UL (150-450) 189 K/UL (150-450) Mean Platelet Volume 6.0 FL (6.5-10.1) L 6.4 FL (6.5-10.1) L Neutrophils (%) (Auto) % (45.0-75.0) % (45.0-75.0) Lymphocytes (%) (Auto) % (20.0-45.0) % (20.0-45.0) Monocytes (%) (Auto) % (1.0-10.0) % (1.0-10.0) Eosinophils (%) (Auto) % (0.0-3.0) % (0.0-3.0) Basophils (%) (Auto) % (0.0-2.0) % (0.0-2.0) Differential Total Cells Counted 100 100 Neutrophils % (Manual) 80 % (45-75) H 79 % (45-75) H Lymphocytes % (Manual) 8 % (20-45) L 14 % (20-45) L Monocytes % (Manual) 6 % (1-10) 3 % (1-10) Eosinophils % (Manual) 5 % (0-3) H 1 % (0-3) Basophils % (Manual) 0 % (0-2) 0 % (0-2) Band Neutrophils 1 % (0-8) 3 % (0-8) Platelet Estimate Adequate Adequate Platelet Morphology Normal Normal Polychromasia 1+ Hypochromasia 2+ 1+ Anisocytosis 1+ Sodium Level 142 MMOL/L (136-145) 143 MMOL/L (136-145) Potassium Level 3.8 MMOL/L (3.5-5.1) 4.0 MMOL/L (3.5-5.1) Chloride Level 113 MMOL/L (98-107) H 114 MMOL/L (98-107) H Carbon Dioxide Level 20 MMOL/L (21-32) L 21 MMOL/L (21-32) Anion Gap 9 mmol/L (5-15) 8 mmol/L (5-15) Blood Urea Nitrogen 20 mg/dL (7-18) H 18 mg/dL (7-18) Creatinine 1.2 MG/DL (0.55-1.30) 1.2 MG/DL (0.55-1.30) Estimat Glomerular Filtration Rate > 60 mL/min (>60) > 60 mL/min (>60) Glucose Level 110 MG/DL (74-106) H 86 MG/DL (74-106) Lactic Acid Level 1.00 mmol/L (0.4-2.0) Calcium Level 6.9 MG/DL (8.5-10.1) L 7.0 MG/DL (8.5-10.1) L Total Bilirubin 0.2 MG/DL (0.2-1.0) 0.2 MG/DL (0.2-1.0) Aspartate Amino Transf (AST/SGOT) 14 U/L (15-37) L 17 U/L (15-37) Alanine Aminotransferase (ALT/SGPT) 61 U/L (12-78) 57 U/L (12-78) Alkaline Phosphatase 95 U/L (46-116) 96 U/L (46-116) Troponin I 0.000 ng/mL (0.000-0.056) Total Protein 4.8 G/DL (6.4-8.2) L 5.2 G/DL (6.4-8.2) L Albumin 1.3 G/DL (3.4-5.0) L 1.2 G/DL (3.4-5.0) L Globulin 3.5 g/dL 4.0 g/dL Albumin/Globulin Ratio 0.4 (1.0-2.7) L 0.3 (1.0-2.7) L Phosphorus Level 3.2 MG/DL (2.5-4.9) Magnesium Level 1.1 MG/DL (1.8-2.4) L Arterial Blood pH 7.398 (7.350-7.450) Arterial Blood Partial Pressure CO2 32.1 mmHg (35.0-45.0) L Arterial Blood Partial Pressure O2 110.1 mmHg (75.0-100.0) H Arterial Blood HCO3 19.4 mmol/L (22.0-26.0) L Arterial Blood Oxygen Saturation 97.9 % (92.0-98.0) Arterial Blood Base Excess -4.8 Benjie Test Positive Microbiology Date/Time Source Procedure Growth Status 01/24/18 18:00 Blood Blood Culture - Preliminary NO GROWTH AFTER 48 HOURS Resulted 01/24/18 17:10 Blood Blood Culture - Preliminary NO GROWTH AFTER 48 HOURS Resulted 01/24/18 17:10 Sputum Gram Stain - Final Resulted 01/24/18 17:10 Sputum Culture - Preliminary Gram Negative Bacillus 1 Gram Negative Bacillus 2 Resulted 01/26/18 04:04 Stool Clostridium difficile Toxin Assay - Final Complete Filsoof,Rob M.D. Jan 27, 2018 15:48
--- NOTE | 2018-01-27 16:11 | Cardiology Report ---
APPROVED REPORT EKG Measurement Heart [id number] Sinus tachycardia Low voltage QRS Cannot rule out Anteroseptal infarct, age undetermined Abnormal ECG
[2018-01-27] MEDS ORDERED: Tubing IV Secondary IV ONE (17:26)
--- NOTE | 2018-01-27 17:47 | General Surgery Progress Note ---
General Surgery-Progress Note Subjective Procedure Performed planned re-exploration of abdomen, sigmoid colectomy, takedown of splenic flexure, left hemicolectomy, creation of transverse colostomy, abdominal closure Additional Comments worsening leukocytosis. low grade fevers. tachycardia. Objective Last 24 Hour Vital Signs Date Time Temp Pulse Resp B/P (MAP) Pulse Ox O2 Delivery O2 Flow Rate FiO2 01/27/18 16:32 119 16 30 01/27/18 16:00 Mechanical Ventilator 01/27/18 16:00 30 01/27/18 15:00 120 20 124/64 (84) 99 01/27/18 14:54 121 18 30 01/27/18 14:00 122 18 120/64 (82) 99 01/27/18 13:09 116 19 30 01/27/18 13:00 118 19 108/93 (98) 99 01/27/18 12:00 99.3 104 15 118/75 (89) 100 99.3 01/27/18 12:00 30 01/27/18 12:00 Mechanical Ventilator 01/27/18 11:00 113 15 119/74 (89) 100 01/27/18 10:47 116 26 30 01/27/18 10:00 113 14 115/67 (83) 100 01/27/18 09:11 121 26 30 01/27/18 09:00 115 16 119/67 (84) 94 01/27/18 08:00 30 01/27/18 08:00 99.9 120 18 122/73 (89) 94 99.9 01/27/18 08:00 Mechanical Ventilator 01/27/18 08:00 119 01/27/18 07:25 116 23 30 01/27/18 07:00 119 17 117/92 (100) 96 01/27/18 06:20 99.3 01/27/18 06:00 129 18 102/68 (79) 99 01/27/18 05:17 101.5 01/27/18 05:14 144 27 30 01/27/18 05:00 143 25 140/125 (130) 99 01/27/18 04:00 129 01/27/18 04:00 30 01/27/18 04:00 101.5 129 22 129/71 (90) 99 101.5 01/27/18 04:00 Mechanical Ventilator 01/27/18 03:20 120 20 30 01/27/18 03:00 124 19 119/67 (84) 100 01/27/18 02:00 122 12 121/71 (88) 100 01/27/18 01:00 126 19 119/71 (87) 99 01/27/18 00:54 125 18 30 01/27/18 00:00 122 01/27/18 00:00 Mechanical Ventilator 01/27/18 00:00 30 01/27/18 00:00 99.9 122 18 121/77 (92) 100 99.9 01/26/18 23:29 126 19 30 01/26/18 23:00 122 18 112/63 (79) 100 01/26/18 22:00 122 18 99/62 (74) 98 01/26/18 21:20 125 17 30 01/26/18 21:00 126 17 104/69 (81) 99 01/26/18 20:00 30 01/26/18 20:00 131 17 96/58 (71) 98 01/26/18 20:00 131 01/26/18 20:00 Mechanical Ventilator 01/26/18 19:15 137 20 30 01/26/18 19:00 100.6 132 19 92/49 (63) 97 100.6 01/26/18 18:00 138 20 99/64 (76) 97 I&O Intake and Output 01/26/18 01/27/18 19:00 07:00 Intake Total 1790.668 ml 1798 ml Output Total 2390 ml 1890 ml Balance -599.332 ml -92 ml IV Total 1070.668 ml 1078 ml Tube Feeding 720 ml 720 ml Output Urine Total 1930 ml 1450 ml Stool Total 300 ml 250 ml Drainage Total 160 ml 190 ml # Bowel Movements 3 Wound: clean Drains: alec Cardiovascular: RSR Respiratory: decreased breath sounds Abdomen: soft, present bowel sounds Extremities: no cyanosis Laboratory Tests Test 01/26/18 18:30 01/27/18 05:00 01/27/18 08:45 White Blood Count 40.9 K/UL (4.8-10.8) *H 41.7 K/UL (4.8-10.8) *H Red Blood Count 2.76 M/UL (4.20-5.40) L 2.65 M/UL (4.20-5.40) L Hemoglobin 8.0 G/DL (12.0-16.0) L 7.7 G/DL (12.0-16.0) L Hematocrit 25.1 % (37.0-47.0) L 24.3 % (37.0-47.0) L Mean Corpuscular Volume 91 FL (80-99) 92 FL (80-99) Mean Corpuscular Hemoglobin 29.2 PG (27.0-31.0) 29.1 PG (27.0-31.0) Mean Corpuscular Hemoglobin Concent 32.0 G/DL (32.0-36.0) 31.7 G/DL (32.0-36.0) L Red Cell Distribution Width 12.7 % (11.6-14.8) 12.4 % (11.6-14.8) Platelet Count 183 K/UL (150-450) 189 K/UL (150-450) Mean Platelet Volume 6.0 FL (6.5-10.1) L 6.4 FL (6.5-10.1) L Neutrophils (%) (Auto) % (45.0-75.0) % (45.0-75.0) Lymphocytes (%) (Auto) % (20.0-45.0) % (20.0-45.0) Monocytes (%) (Auto) % (1.0-10.0) % (1.0-10.0) Eosinophils (%) (Auto) % (0.0-3.0) % (0.0-3.0) Basophils (%) (Auto) % (0.0-2.0) % (0.0-2.0) Differential Total Cells Counted 100 100 Neutrophils % (Manual) 80 % (45-75) H 79 % (45-75) H Lymphocytes % (Manual) 8 % (20-45) L 14 % (20-45) L Monocytes % (Manual) 6 % (1-10) 3 % (1-10) Eosinophils % (Manual) 5 % (0-3) H 1 % (0-3) Basophils % (Manual) 0 % (0-2) 0 % (0-2) Band Neutrophils 1 % (0-8) 3 % (0-8) Platelet Estimate Adequate Adequate Platelet Morphology Normal Normal Polychromasia 1+ Hypochromasia 2+ 1+ Anisocytosis 1+ Sodium Level 142 MMOL/L (136-145) 143 MMOL/L (136-145) Potassium Level 3.8 MMOL/L (3.5-5.1) 4.0 MMOL/L (3.5-5.1) Chloride Level 113 MMOL/L (98-107) H 114 MMOL/L (98-107) H Carbon Dioxide Level 20 MMOL/L (21-32) L 21 MMOL/L (21-32) Anion Gap 9 mmol/L (5-15) 8 mmol/L (5-15) Blood Urea Nitrogen 20 mg/dL (7-18) H 18 mg/dL (7-18) Creatinine 1.2 MG/DL (0.55-1.30) 1.2 MG/DL (0.55-1.30) Estimat Glomerular Filtration Rate > 60 mL/min (>60) > 60 mL/min (>60) Glucose Level 110 MG/DL (74-106) H 86 MG/DL (74-106) Lactic Acid Level 1.00 mmol/L (0.4-2.0) Calcium Level 6.9 MG/DL (8.5-10.1) L 7.0 MG/DL (8.5-10.1) L Total Bilirubin 0.2 MG/DL (0.2-1.0) 0.2 MG/DL (0.2-1.0) Aspartate Amino Transf (AST/SGOT) 14 U/L (15-37) L 17 U/L (15-37) Alanine Aminotransferase (ALT/SGPT) 61 U/L (12-78) 57 U/L (12-78) Alkaline Phosphatase 95 U/L (46-116) 96 U/L (46-116) Troponin I 0.000 ng/mL (0.000-0.056) Total Protein 4.8 G/DL (6.4-8.2) L 5.2 G/DL (6.4-8.2) L Albumin 1.3 G/DL (3.4-5.0) L 1.2 G/DL (3.4-5.0) L Globulin 3.5 g/dL 4.0 g/dL Albumin/Globulin Ratio 0.4 (1.0-2.7) L 0.3 (1.0-2.7) L Phosphorus Level 3.2 MG/DL (2.5-4.9) Magnesium Level 1.1 MG/DL (1.8-2.4) L Arterial Blood pH 7.398 (7.350-7.450) Arterial Blood Partial Pressure CO2 32.1 mmHg (35.0-45.0) L Arterial Blood Partial Pressure O2 110.1 mmHg (75.0-100.0) H Arterial Blood HCO3 19.4 mmol/L (22.0-26.0) L Arterial Blood Oxygen Saturation 97.9 % (92.0-98.0) Arterial Blood Base Excess -4.8 Benjie Test Positive Assessment Post-op Diagnosis s/p exploratory laparotomy, abdominal washout, open abdomen Plan Problems: (1) Severe sepsis Assessment & Plan: 37F severe sepsis. etiology unknown. labs as above. radiology as above. arrested on arrival in ED and currently in ICU. CXR and KUB reviewed. question of possible free air. on KUB very stool filled bowel with dilated bowels On exam with incarcerated umbilical hernia, cannot determine if chronic, acute, bowel or fat. was able to reduce at bedside fortunately. Need CT scan but unfortunately too unstable for examination Warrants diagnostic laparoscopy vs exploration but given recent events, current condition, and history would not be safe and needs resuscitation first. would unlikely tolerate surgery. needs to respond to resuscitation first. likely very dehydrated given labs. s/p ex lap with open abdomen s/p re-ex lap 48hrs after for washout, bowel resection, ostomy, abd closure recovering labs reviewed HD stability improving drains with serous output - lower drain improved ostomy viable with good output now - loose stool tolerating tube feeds worsening leukocytosis. tachy. blood in stool noted. drains both serous today. no signs of intraabdominal infection. KUB improved. cultures reviewed. no clear identifiable etiology of leukocytosis. does not warrant re- exploration based on clinical exam only for leukocytosis. wound looks good. drains clear. ostomy functional. -monitor ostomy output. will discuss with GI about bleed -IV fluids -IV Abx -trend labs -rock -drain care and management -packing and dressings to midline wound BID -ostomy care/bag will follow closely. unfortunately very poor prognosis. Marshall Ferguson Jan 27, 2018 17:47
[2018-01-27] MEDS: Dyna-Hex 2% Top Sol 2oz TOPIC SCH (19:46)
[2018-01-27] MEDS: Micafungin 100 MG in NS 110 ML IVPB SCH (20:06)
[2018-01-28] VITALS (15 sets, daily range): BP systolic 103–127; BP diastolic 56–81
[2018-01-28 06:09] LABS: HEMATOCRIT 20.7 % (37.0-47.0); MEAN CORPUSCULAR VOLUME 93 FL (80-99); PLATELET COUNT 179 K/UL (150-450); RED BLOOD COUNT 2.23 M/UL (4.20-5.40); RED CELL DISTRIBUTION WIDTH 13.8 % (11.6-14.8)
[2018-01-28 06:19] LABS: HEMOGLOBIN 6.7 G/DL (12.0-16.0)
[2018-01-28 06:29] LABS: PHOSPHORUS 3.5 MG/DL (2.5-4.9)
[2018-01-28 06:36] LABS: ALANINE AMINOTRANSFERASE 38 U/L (12-78); ALBUMIN 1.2 G/DL (3.4-5.0); ALBUMIN/GLOBULIN RATIO 0.3 (1.0-2.7); ALKALINE PHOSPHATASE 70 U/L (46-116); ANION GAP 8 mmol/L (5-15); ASPARTATE AMINO TRANSFERASE 16 U/L (15-37); BILIRUBIN,TOTAL 0.2 MG/DL (0.2-1.0); BLOOD UREA NITROGEN 12 mg/dL (7-18); CARBON DIOXIDE 23 MMOL/L (21-32); CHLORIDE 112 MMOL/L (98-107); POTASSIUM 4.1 MMOL/L (3.5-5.1); SODIUM 143 MMOL/L (136-145)
--- NOTE | 2018-01-28 07:37 | Nephrology Progress Note ---
Assessment/Plan Assessment/Plan 1. INDIRA- resolved, Cr 1 2. Hypok+/Mg- replace Mg today 3. Resp FL:- trached on the ventilator 4- Sepsis- abx. WBC improving -s/p re-exploration of abdomen, sigmoid colectomy, takedown of splenic flexure, left hemicolectomy, creation of transverse colostomy, abdominal closure per gen surgery 5. Anemia-- bld tx today Subjective Date patient seen: Jan 28, 2018 Time patient seen: 07:35 ROS Limited/Unobtainable: Yes Allergies: Coded Allergies: No Known Allergies (Unverified , 01/18/15) Subjective Patient remains trached/vent. No change Objective Last 24 Hour Vital Signs Date Time Temp Pulse Resp B/P (MAP) Pulse Ox O2 Delivery O2 Flow Rate FiO2 01/28/18 06:00 99.8 111 18 111/79 (90) 99 99.8 01/28/18 05:09 105 12 30 01/28/18 05:00 106 18 124/81 (95) 99 01/28/18 04:00 109 18 115/62 (79) 99 01/28/18 04:00 109 01/28/18 04:00 30 01/28/18 04:00 Mechanical Ventilator 01/28/18 03:00 109 18 110/56 (74) 99 01/28/18 02:36 119 13 Mechanical Ventilator 30.0 30 01/28/18 02:35 119 13 30 01/28/18 02:00 119 18 107/56 (73) 99 01/28/18 01:26 99.8 01/28/18 01:17 99.9 127 18 116/57 (76) 99 99.9 01/28/18 01:00 125 15 30 01/28/18 00:27 100.9 01/28/18 00:00 Mechanical Ventilator 01/28/18 00:00 30 01/28/18 00:00 127 01/28/18 00:00 100.9 130 18 120/71 (87) 99 100.9 01/27/18 23:00 124 18 124/81 (95) 99 01/27/18 22:52 127 17 30 01/27/18 22:00 122 18 123/63 (83) 99 01/27/18 21:22 128 20 30 01/27/18 21:00 127 18 138/74 (95) 99 01/27/18 20:00 126 01/27/18 20:00 30 01/27/18 20:00 128 19 138/73 (94) 99 01/27/18 20:00 Mechanical Ventilator 01/27/18 19:06 125 17 30 01/27/18 19:00 99.6 126 19 128/69 (88) 98 99.6 01/27/18 18:00 127 18 124/74 (91) 99 01/27/18 17:00 126 22 120/68 (85) 99 01/27/18 16:32 119 16 30 01/27/18 16:00 100.0 123 18 126/66 (86) 99 100.0 01/27/18 16:00 122 01/27/18 16:00 Mechanical Ventilator 01/27/18 16:00 30 01/27/18 15:00 120 20 124/64 (84) 99 01/27/18 14:54 121 18 30 01/27/18 14:00 122 18 120/64 (82) 99 01/27/18 13:09 116 19 30 01/27/18 13:00 118 19 108/93 (98) 99 01/27/18 12:00 99.3 104 15 118/75 (89) 100 99.3 01/27/18 12:00 30 01/27/18 12:00 Mechanical Ventilator 01/27/18 12:00 116 01/27/18 11:00 113 15 119/74 (89) 100 01/27/18 10:47 116 26 30 01/27/18 10:00 113 14 115/67 (83) 100 01/27/18 09:11 121 26 30 01/27/18 09:00 115 16 119/67 (84) 94 01/27/18 08:00 30 01/27/18 08:00 99.9 120 18 122/73 (89) 94 99.9 01/27/18 08:00 Mechanical Ventilator 01/27/18 08:00 119 Intake and Output 01/27/18 01/28/18 19:00 07:00 Intake Total 2234 ml 1353 ml Output Total 2265 ml 1685 ml Balance -31 ml -332 ml IV Total 1684 ml 1303 ml Tube Feeding 420 ml Other 130 ml 50 ml Output Urine Total 1675 ml 1335 ml Stool Total 350 ml 250 ml Drainage Total 240 ml 100 ml Laboratory Tests 01/27/18 08:45: Arterial Blood pH 7.398, Arterial Blood Partial Pressure CO2 32.1L, Arterial Blood Partial Pressure O2 110.1H, Arterial Blood HCO3 19.4L, Arterial Blood Oxygen Saturation 97.9, Arterial Blood Base Excess -4.8, Benjie Test Positive 01/28/18 05:00: White Blood Count 25.0*H, Red Blood Count 2.23L, Hemoglobin 6.7*L, Hematocrit 20.7L, Mean Corpuscular Volume 93, Mean Corpuscular Hemoglobin 30.2, Mean Corpuscular Hemoglobin Concent 32.6, Red Cell Distribution Width 13.8, Platelet Count 179, Mean Platelet Volume 6.6, Neutrophils (%) (Auto) , Lymphocytes (%) ( Auto) , Monocytes (%) (Auto) , Eosinophils (%) (Auto) , Basophils (%) (Auto) , Neutrophils % (Manual) [Pending], Lymphocytes % (Manual) [Pending], Platelet Estimate [Pending], Platelet Morphology [Pending], Sodium Level 143, Potassium Level 4.1, Chloride Level 112H, Carbon Dioxide Level 23, Anion Gap 8, Blood Urea Nitrogen 12, Creatinine 1.0, Estimat Glomerular Filtration Rate > 60, Glucose Level 70L, Calcium Level 7.0L, Phosphorus Level 3.5, Magnesium Level 1.3L, Total Bilirubin 0.2, Aspartate Amino Transf (AST/SGOT) 16, Alanine Aminotransferase (ALT/SGPT) 38, Alkaline Phosphatase 70, Pro-B-Type Natriuretic Peptide 347H, Total Protein 5.0L, Albumin 1.2L, Globulin 3.8, Albumin/Globulin Ratio 0.3L, Amylase Level 189H, Lipase 703H Height (Feet): 5 Height (Inches): 3.00 Weight (Pounds): 184 General Appearance: no apparent distress, alert EENT: normal ENT inspection Neck: normal alignment, supple Cardiovascular: normal rate, regular rhythm Respiratory/Chest: rhonchi - bilaterally Abdomen: non tender, soft Edema: no edema noted Arm (L), no edema noted Arm (R), no edema noted Leg (L), no edema noted Leg (R), no edema noted Pedal (L), no edema noted Pedal (R), no edema noted Generalized De Raudel Garcia.D. Jan 28, 2018 07:37
[2018-01-28] MEDS: Tigecycline 50 MG in D5W 110 ML IVPB SCH ×2 (08:28→20:32)
[2018-01-28] MEDS: levETIRAcetam 1,000mg/NS100ml 100 ML IVPB SCH ×2 (08:29→20:07)
[2018-01-28] MEDS: NS IVPB SCH ×2 (08:29→21:47)
[2018-01-28] MEDS: PHENYTOIN IVPB SCH ×2 (08:29→21:47)
[2018-01-28] MEDS: Pantoprazole Inj IV SCH ×2 (08:30→20:59)
[2018-01-28] MEDS: Vancomycin oral 125mg/2.5ml ORAL SCH ×4 (08:31→20:59)
[2018-01-28] MEDS: Heparin 5000 units/ml inj SUBQ SCH ×2 (08:32→21:00)
--- NOTE | 2018-01-28 10:03 | Pulmonolgy Critical Care Note ---
Critical Care - Asmt/Plan Problems: (1) Acute on chronic respiratory failure (2) Sepsis (3) Anoxic brain injury (4) Feeding by G-tube (5) Tachycardia Respiratory: monitor respiratory rate, adjust FIO2, CXR Cardiac: continue to monitor HR/BP Renal: F/U I&O Infectious Disease: check cultures Gastrointestinal: continue feedings/current rate Endocrine: monitor blood sugar, check HgA1C Hematologic: transfuse if hgb<8.5 Neurologic: PRN Ativan, PRN Morphine, keep patient comfortable Affect: PRN ativan Prophylaxis: Protonix, Heparin Notes Reviewed: cardio Discussed with: nurses, consultants, director of caseworkdevelopment system efficiency manager - Objective Last 24 Hour Vital Signs Date Time Temp Pulse Resp B/P (MAP) Pulse Ox O2 Delivery O2 Flow Rate FiO2 01/28/18 09:23 110 15 30 01/28/18 07:05 113 16 30 01/28/18 07:00 115 18 112/60 (77) 99 01/28/18 06:00 99.8 111 18 111/79 (90) 99 99.8 01/28/18 05:09 105 12 30 01/28/18 05:00 106 18 124/81 (95) 99 01/28/18 04:00 109 18 115/62 (79) 99 01/28/18 04:00 109 01/28/18 04:00 30 01/28/18 04:00 Mechanical Ventilator 01/28/18 03:00 109 18 110/56 (74) 99 01/28/18 02:36 119 13 Mechanical Ventilator 30.0 30 01/28/18 02:35 119 13 30 01/28/18 02:00 119 18 107/56 (73) 99 01/28/18 01:26 99.8 01/28/18 01:17 99.9 127 18 116/57 (76) 99 99.9 01/28/18 01:00 125 15 30 01/28/18 00:27 100.9 01/28/18 00:00 Mechanical Ventilator 01/28/18 00:00 30 01/28/18 00:00 127 01/28/18 00:00 100.9 130 18 120/71 (87) 99 100.9 01/27/18 23:00 124 18 124/81 (95) 99 01/27/18 22:52 127 17 30 01/27/18 22:00 122 18 123/63 (83) 99 01/27/18 21:22 128 20 30 01/27/18 21:00 127 18 138/74 (95) 99 01/27/18 20:00 126 01/27/18 20:00 30 01/27/18 20:00 128 19 138/73 (94) 99 01/27/18 20:00 Mechanical Ventilator 01/27/18 19:06 125 17 30 01/27/18 19:00 99.6 126 19 128/69 (88) 98 99.6 01/27/18 18:00 127 18 124/74 (91) 99 01/27/18 17:00 126 22 120/68 (85) 99 01/27/18 16:32 119 16 30 01/27/18 16:00 100.0 123 18 126/66 (86) 99 100.0 01/27/18 16:00 122 01/27/18 16:00 Mechanical Ventilator 01/27/18 16:00 30 01/27/18 15:00 120 20 124/64 (84) 99 01/27/18 14:54 121 18 30 01/27/18 14:00 122 18 120/64 (82) 99 01/27/18 13:09 116 19 30 01/27/18 13:00 118 19 108/93 (98) 99 01/27/18 12:00 99.3 104 15 118/75 (89) 100 99.3 01/27/18 12:00 30 01/27/18 12:00 Mechanical Ventilator 01/27/18 12:00 116 01/27/18 11:00 113 15 119/74 (89) 100 01/27/18 10:47 116 26 30 Status: obtunded Condition: critical HEENT: atraumatic Heart: HR/BP stable Abdomen: soft, active bowel sounds Extremities: no C/C/E Micro: Microbiology Date/Time Source Procedure Growth Status 01/26/18 04:04 Stool Clostridium difficile Toxin Assay - Final Complete Accucheck: 248 Critical Care - Subjective ROS Limited/Unobtainable: No Condition: critical EKG Rhythm: Sinus Rhythm FI02: 30 Vent Support Breath Rate: 12 Vent Support Mode: AC Vent Tidal Volume: 600 Sputum Amount: Small PEEP: 5.0 PIP: 34 I&O: Intake and Output 01/27/18 01/28/18 19:00 07:00 Intake Total 2234 ml 1353 ml Output Total 2265 ml 1835 ml Balance -31 ml -482 ml IV Total 1684 ml 1303 ml Tube Feeding 420 ml Other 130 ml 50 ml Output Urine Total 1675 ml 1485 ml Stool Total 350 ml 250 ml Drainage Total 240 ml 100 ml Labs: Laboratory Tests Test 01/28/18 05:00 01/28/18 09:40 White Blood Count 25.0 K/UL (4.8-10.8) *H Red Blood Count 2.23 M/UL (4.20-5.40) L Hemoglobin 6.7 G/DL (12.0-16.0) *L Hematocrit 20.7 % (37.0-47.0) L Mean Corpuscular Volume 93 FL (80-99) Mean Corpuscular Hemoglobin 30.2 PG (27.0-31.0) Mean Corpuscular Hemoglobin Concent 32.6 G/DL (32.0-36.0) Red Cell Distribution Width 13.8 % (11.6-14.8) Platelet Count 179 K/UL (150-450) Mean Platelet Volume 6.6 FL (6.5-10.1) Neutrophils (%) (Auto) % (45.0-75.0) Lymphocytes (%) (Auto) % (20.0-45.0) Monocytes (%) (Auto) % (1.0-10.0) Eosinophils (%) (Auto) % (0.0-3.0) Basophils (%) (Auto) % (0.0-2.0) Differential Total Cells Counted 100 Neutrophils % (Manual) 79 % (45-75) H Lymphocytes % (Manual) 15 % (20-45) L Monocytes % (Manual) 4 % (1-10) Eosinophils % (Manual) 2 % (0-3) Basophils % (Manual) 0 % (0-2) Band Neutrophils 0 % (0-8) Platelet Estimate Adequate Platelet Morphology Normal Hypochromasia 1+ Sodium Level 143 MMOL/L (136-145) Potassium Level 4.1 MMOL/L (3.5-5.1) Chloride Level 112 MMOL/L (98-107) H Carbon Dioxide Level 23 MMOL/L (21-32) Anion Gap 8 mmol/L (5-15) Blood Urea Nitrogen 12 mg/dL (7-18) Creatinine 1.0 MG/DL (0.55-1.30) Estimat Glomerular Filtration Rate > 60 mL/min (>60) Glucose Level 70 MG/DL (74-106) L Calcium Level 7.0 MG/DL (8.5-10.1) L Phosphorus Level 3.5 MG/DL (2.5-4.9) Magnesium Level 1.3 MG/DL (1.8-2.4) L Total Bilirubin 0.2 MG/DL (0.2-1.0) Aspartate Amino Transf (AST/SGOT) 16 U/L (15-37) Alanine Aminotransferase (ALT/SGPT) 38 U/L (12-78) Alkaline Phosphatase 70 U/L (46-116) Pro-B-Type Natriuretic Peptide 347 pg/mL (0-125) H Total Protein 5.0 G/DL (6.4-8.2) L Albumin 1.2 G/DL (3.4-5.0) L Globulin 3.8 g/dL Albumin/Globulin Ratio 0.3 (1.0-2.7) L Amylase Level 189 U/L (25-115) H Lipase 703 U/L (73-393) H Prothrombin Time Pending Prothromb Time International Ratio Pending Activated Partial Thromboplast Time Pending Yanick Hernandez MD Jan 28, 2018 10:03
[2018-01-28 10:07] LABS: INR 1.2 (0.9-1.1)
--- NOTE | 2018-01-28 10:52 | GI Progress Note ---
Assessment/Plan Problems: (1) GI bleed ICD Codes: K92.2 - Gastrointestinal hemorrhage, unspecified SNOMED: 17839775 (2) Feeding by G-tube ICD Codes: Z93.1 - Feeding by G-tube SNOMED: 572595817 (3) Anoxic brain injury ICD Codes: G93.1 - Anoxic brain injury SNOMED: 674466021 (4) Severe sepsis ICD Codes: A41.9 - Sepsis, unspecified organism; R65.20 - Severe sepsis without septic shock SNOMED: 05043546 (5) Anemia ICD Codes: D64.9 - Anemia SNOMED: 696328967 Status: stable Status Narrative Discussed with Dr. Reese. Assessment/Plan anemia work up reviewed - folate deficiency - no iron deficiency - downtrending H&H active GI bleed, most likely due to recent surgery cdiff negative lipase elevation gastric lavage >> no heme noted defer any GI procedures given recent surgery stop GTFs at this time to allow for bowel rest IV hydration + electrolyte correction monitor H&H, transfuse prn per hematology folate ppi BID trend lipase fu labs Subjective Subjective limited Objective Last 24 Hour Vital Signs Date Time Temp Pulse Resp B/P (MAP) Pulse Ox O2 Delivery O2 Flow Rate FiO2 01/28/18 09:23 110 15 30 01/28/18 07:05 113 16 30 01/28/18 07:00 115 18 112/60 (77) 99 01/28/18 06:00 99.8 111 18 111/79 (90) 99 99.8 01/28/18 05:09 105 12 30 01/28/18 05:00 106 18 124/81 (95) 99 01/28/18 04:00 109 18 115/62 (79) 99 01/28/18 04:00 109 01/28/18 04:00 30 01/28/18 04:00 Mechanical Ventilator 01/28/18 03:00 109 18 110/56 (74) 99 01/28/18 02:36 119 13 Mechanical Ventilator 30.0 30 01/28/18 02:35 119 13 30 01/28/18 02:00 119 18 107/56 (73) 99 01/28/18 01:26 99.8 01/28/18 01:17 99.9 127 18 116/57 (76) 99 99.9 7/12/18 01:00 125 15 30 01/28/18 00:27 100.9 01/28/18 00:00 Mechanical Ventilator 01/28/18 00:00 30 01/28/18 00:00 127 01/28/18 00:00 100.9 130 18 120/71 (87) 99 100.9 01/27/18 23:00 124 18 124/81 (95) 99 01/27/18 22:52 127 17 30 01/27/18 22:00 122 18 123/63 (83) 99 01/27/18 21:22 128 20 30 01/27/18 21:00 127 18 138/74 (95) 99 01/27/18 20:00 126 01/27/18 20:00 30 01/27/18 20:00 128 19 138/73 (94) 99 01/27/18 20:00 Mechanical Ventilator 01/27/18 19:06 125 17 30 01/27/18 19:00 99.6 126 19 128/69 (88) 98 99.6 01/27/18 18:00 127 18 124/74 (91) 99 01/27/18 17:00 126 22 120/68 (85) 99 01/27/18 16:32 119 16 30 01/27/18 16:00 100.0 123 18 126/66 (86) 99 100.0 01/27/18 16:00 122 01/27/18 16:00 Mechanical Ventilator 01/27/18 16:00 30 01/27/18 15:00 120 20 124/64 (84) 99 01/27/18 14:54 121 18 30 01/27/18 14:00 122 18 120/64 (82) 99 01/27/18 13:09 116 19 30 01/27/18 13:00 118 19 108/93 (98) 99 01/27/18 12:00 99.3 104 15 118/75 (89) 100 99.3 01/27/18 12:00 30 01/27/18 12:00 Mechanical Ventilator 01/27/18 12:00 116 01/27/18 11:00 113 15 119/74 (89) 100 Intake and Output 01/27/18 01/28/18 19:00 07:00 Intake Total 2234 ml 1353 ml Output Total 2265 ml 1835 ml Balance -31 ml -482 ml IV Total 1684 ml 1303 ml Tube Feeding 420 ml Other 130 ml 50 ml Output Urine Total 1675 ml 1485 ml Stool Total 350 ml 250 ml Drainage Total 240 ml 100 ml Laboratory Tests Test 01/28/18 05:00 01/28/18 09:40 White Blood Count 25.0 K/UL (4.8-10.8) *H Red Blood Count 2.23 M/UL (4.20-5.40) L Hemoglobin 6.7 G/DL (12.0-16.0) *L Hematocrit 20.7 % (37.0-47.0) L Mean Corpuscular Volume 93 FL (80-99) Mean Corpuscular Hemoglobin 30.2 PG (27.0-31.0) Mean Corpuscular Hemoglobin Concent 32.6 G/DL (32.0-36.0) Red Cell Distribution Width 13.8 % (11.6-14.8) Platelet Count 179 K/UL (150-450) Mean Platelet Volume 6.6 FL (6.5-10.1) Neutrophils (%) (Auto) % (45.0-75.0) Lymphocytes (%) (Auto) % (20.0-45.0) Monocytes (%) (Auto) % (1.0-10.0) Eosinophils (%) (Auto) % (0.0-3.0) Basophils (%) (Auto) % (0.0-2.0) Differential Total Cells Counted 100 Neutrophils % (Manual) 79 % (45-75) H Lymphocytes % (Manual) 15 % (20-45) L Monocytes % (Manual) 4 % (1-10) Eosinophils % (Manual) 2 % (0-3) Basophils % (Manual) 0 % (0-2) Band Neutrophils 0 % (0-8) Platelet Estimate Adequate Platelet Morphology Normal Hypochromasia 1+ Sodium Level 143 MMOL/L (136-145) Potassium Level 4.1 MMOL/L (3.5-5.1) Chloride Level 112 MMOL/L (98-107) H Carbon Dioxide Level 23 MMOL/L (21-32) Anion Gap 8 mmol/L (5-15) Blood Urea Nitrogen 12 mg/dL (7-18) Creatinine 1.0 MG/DL (0.55-1.30) Estimat Glomerular Filtration Rate > 60 mL/min (>60) Glucose Level 70 MG/DL (74-106) L Calcium Level 7.0 MG/DL (8.5-10.1) L Phosphorus Level 3.5 MG/DL (2.5-4.9) Magnesium Level 1.3 MG/DL (1.8-2.4) L Total Bilirubin 0.2 MG/DL (0.2-1.0) Aspartate Amino Transf (AST/SGOT) 16 U/L (15-37) Alanine Aminotransferase (ALT/SGPT) 38 U/L (12-78) Alkaline Phosphatase 70 U/L (46-116) Pro-B-Type Natriuretic Peptide 347 pg/mL (0-125) H Total Protein 5.0 G/DL (6.4-8.2) L Albumin 1.2 G/DL (3.4-5.0) L Globulin 3.8 g/dL Albumin/Globulin Ratio 0.3 (1.0-2.7) L Amylase Level 189 U/L (25-115) H Lipase 703 U/L (73-393) H Prothrombin Time 12.1 SEC (9.30-11.50) H Prothromb Time International Ratio 1.2 (0.9-1.1) H Activated Partial Thromboplast Time 35 SEC (23-33) H Height (Feet): 5 Height (Inches): 3.00 Weight (Pounds): 184 General Appearance: no apparent distress Cardiovascular: normal rate Respiratory/Chest: normal breath sounds, no respiratory distress, other - mech vent Abdominal Exam: normal bowel sounds, non tender, soft Extremities: non-tender Ron Mead [employer] Jan 28, 2018 10:52
--- NOTE | 2018-01-28 10:54 | GI Progress Note ---
Assessment/Plan Problems: (1) GI bleed ICD Codes: K92.2 - Gastrointestinal hemorrhage, unspecified SNOMED: 30719264 (2) Feeding by G-tube ICD Codes: Z93.1 - Feeding by G-tube SNOMED: 719611709 (3) Anoxic brain injury ICD Codes: G93.1 - Anoxic brain injury SNOMED: 851042043 (4) Severe sepsis ICD Codes: A41.9 - Sepsis, unspecified organism; R65.20 - Severe sepsis without septic shock SNOMED: 06476616 (5) Anemia ICD Codes: D64.9 - Anemia SNOMED: 366783006 Status: stable Status Narrative Discussed with Dr. Reese. Assessment/Plan anemia work up reviewed - folate deficiency - no iron deficiency - downtrending H&H active GI bleed, most likely due to recent surgery cdiff negative lipase elevation gastric lavage >> no heme noted normal coags defer any GI procedures given recent surgery stop GTFs at this time to allow for bowel rest IV hydration + electrolyte correction monitor H&H, transfuse prn per hematology folate ppi BID trend lipase fu labs Subjective Subjective limited Objective Last 24 Hour Vital Signs Date Time Temp Pulse Resp B/P (MAP) Pulse Ox O2 Delivery O2 Flow Rate FiO2 01/28/18 09:23 110 15 30 01/28/18 07:05 113 16 30 01/28/18 07:00 115 18 112/60 (77) 99 01/28/18 06:00 99.8 111 18 111/79 (90) 99 99.8 01/28/18 05:09 105 12 30 01/28/18 05:00 106 18 124/81 (95) 99 01/28/18 04:00 109 18 115/62 (79) 99 01/28/18 04:00 109 01/28/18 04:00 30 01/28/18 04:00 Mechanical Ventilator 01/28/18 03:00 109 18 110/56 (74) 99 01/28/18 02:36 119 13 Mechanical Ventilator 30.0 30 01/28/18 02:35 119 13 30 01/28/18 02:00 119 18 107/56 (73) 99 01/28/18 01:26 99.8 01/28/18 01:17 99.9 127 18 116/57 (76) 99 99.9 01/28/18 01:00 125 15 30 01/28/18 00:27 100.9 01/28/18 00:00 Mechanical Ventilator 01/28/18 00:00 30 01/28/18 00:00 127 01/28/18 00:00 100.9 130 18 120/71 (87) 99 100.9 01/27/18 23:00 124 18 124/81 (95) 99 01/27/18 22:52 127 17 30 01/27/18 22:00 122 18 123/63 (83) 99 01/27/18 21:22 128 20 30 01/27/18 21:00 127 18 138/74 (95) 99 01/27/18 20:00 126 01/27/18 20:00 30 01/27/18 20:00 128 19 138/73 (94) 99 01/27/18 20:00 Mechanical Ventilator 01/27/18 19:06 125 17 30 01/27/18 19:00 99.6 126 19 128/69 (88) 98 99.6 01/27/18 18:00 127 18 124/74 (91) 99 01/27/18 17:00 126 22 120/68 (85) 99 01/27/18 16:32 119 16 30 01/27/18 16:00 100.0 123 18 126/66 (86) 99 100.0 01/27/18 16:00 122 01/27/18 16:00 Mechanical Ventilator 01/27/18 16:00 30 01/27/18 15:00 120 20 124/64 (84) 99 01/27/18 14:54 121 18 30 01/27/18 14:00 122 18 120/64 (82) 99 01/27/18 13:09 116 19 30 01/27/18 13:00 118 19 108/93 (98) 99 01/27/18 12:00 99.3 104 15 118/75 (89) 100 99.3 01/27/18 12:00 30 01/27/18 12:00 Mechanical Ventilator 01/27/18 12:00 116 01/27/18 11:00 113 15 119/74 (89) 100 Intake and Output 01/27/18 01/28/18 19:00 07:00 Intake Total 2234 ml 1353 ml Output Total 2265 ml 1835 ml Balance -31 ml -482 ml IV Total 1684 ml 1303 ml Tube Feeding 420 ml Other 130 ml 50 ml Output Urine Total 1675 ml 1485 ml Stool Total 350 ml 250 ml Drainage Total 240 ml 100 ml Laboratory Tests Test 01/28/18 05:00 01/28/18 09:40 White Blood Count 25.0 K/UL (4.8-10.8) *H Red Blood Count 2.23 M/UL (4.20-5.40) L Hemoglobin 6.7 G/DL (12.0-16.0) *L Hematocrit 20.7 % (37.0-47.0) L Mean Corpuscular Volume 93 FL (80-99) Mean Corpuscular Hemoglobin 30.2 PG (27.0-31.0) Mean Corpuscular Hemoglobin Concent 32.6 G/DL (32.0-36.0) Red Cell Distribution Width 13.8 % (11.6-14.8) Platelet Count 179 K/UL (150-450) Mean Platelet Volume 6.6 FL (6.5-10.1) Neutrophils (%) (Auto) % (45.0-75.0) Lymphocytes (%) (Auto) % (20.0-45.0) Monocytes (%) (Auto) % (1.0-10.0) Eosinophils (%) (Auto) % (0.0-3.0) Basophils (%) (Auto) % (0.0-2.0) Differential Total Cells Counted 100 Neutrophils % (Manual) 79 % (45-75) H Lymphocytes % (Manual) 15 % (20-45) L Monocytes % (Manual) 4 % (1-10) Eosinophils % (Manual) 2 % (0-3) Basophils % (Manual) 0 % (0-2) Band Neutrophils 0 % (0-8) Platelet Estimate Adequate Platelet Morphology Normal Hypochromasia 1+ Sodium Level 143 MMOL/L (136-145) Potassium Level 4.1 MMOL/L (3.5-5.1) Chloride Level 112 MMOL/L (98-107) H Carbon Dioxide Level 23 MMOL/L (21-32) Anion Gap 8 mmol/L (5-15) Blood Urea Nitrogen 12 mg/dL (7-18) Creatinine 1.0 MG/DL (0.55-1.30) Estimat Glomerular Filtration Rate > 60 mL/min (>60) Glucose Level 70 MG/DL (74-106) L Calcium Level 7.0 MG/DL (8.5-10.1) L Phosphorus Level 3.5 MG/DL (2.5-4.9) Magnesium Level 1.3 MG/DL (1.8-2.4) L Total Bilirubin 0.2 MG/DL (0.2-1.0) Aspartate Amino Transf (AST/SGOT) 16 U/L (15-37) Alanine Aminotransferase (ALT/SGPT) 38 U/L (12-78) Alkaline Phosphatase 70 U/L (46-116) Pro-B-Type Natriuretic Peptide 347 pg/mL (0-125) H Total Protein 5.0 G/DL (6.4-8.2) L Albumin 1.2 G/DL (3.4-5.0) L Globulin 3.8 g/dL Albumin/Globulin Ratio 0.3 (1.0-2.7) L Amylase Level 189 U/L (25-115) H Lipase 703 U/L (73-393) H Prothrombin Time 12.1 SEC (9.30-11.50) H Prothromb Time International Ratio 1.2 (0.9-1.1) H Activated Partial Thromboplast Time 35 SEC (23-33) H Height (Feet): 5 Height (Inches): 3.00 Weight (Pounds): 184 Ron Mead NP Jan 28, 2018 10:54
--- NOTE | 2018-01-28 12:02 | General Progress Note ---
Assessment/Plan Status: not improved, unchanged Assessment/Plan #. Leukocytosis, likely due to infection, peritonitis, now better --> The patient with lactic acidosis. Lactic acid 7.4. --> Currently on pressors. Rule out infectious etiology. --> On broad-spectrum antibiotics and antifungals. --> Closely monitor for improvement. #. Anemia currently due to blood loss from surgery in addition to hemodilution --> cr goal is >7 --> jak2 level pending under serology as she had erythrocytosis on presentation --> anemia w/u has been reviewed #. Coagulopathy with inr 1.6 likely due to malnutrition v dic --> obtain a mixing study #. Septic shock, closely monitor, --> on antibiotics, broad spectrum. #. Seizure disorder, currently on antiseizure medication. #. Respiratory failure, status post trach and vent. #. Dysphagia, status post gastrostomy tube. The time the note was entered does not necessarily correspond to the time the patient was seen. Subjective Date patient seen: Jan 28, 2018 ROS Limited/Unobtainable: Yes Constitutional: Reports: fever, malaise Hematologic/Lymphatic: Reports: anemia Allergies: Coded Allergies: No Known Allergies (Unverified , 01/18/15) All Systems: reviewed and negative except above Subjective Pt remains in ICU. No acute events. Abd XR shows improvement. Low Hgb noted, transfusion ordered. Elevated wbc continues, pt on abx. Objective Last 24 Hour Vital Signs Date Time Temp Pulse Resp B/P (MAP) Pulse Ox O2 Delivery O2 Flow Rate FiO2 01/28/18 11:52 100.1 01/28/18 11:00 102 14 118/63 (81) 95 01/28/18 10:00 105 14 115/58 (77) 95 01/28/18 09:23 110 15 30 01/28/18 09:00 114 18 111/67 (82) 99 01/28/18 08:00 Mechanical Ventilator 01/28/18 08:00 112 01/28/18 08:00 30 01/28/18 08:00 100.1 113 18 103/80 (88) 99 100.1 01/28/18 07:05 113 16 30 01/28/18 07:00 115 18 112/60 (77) 99 01/28/18 06:00 99.8 111 18 111/79 (90) 99 99.8 01/28/18 05:09 105 12 30 01/28/18 05:00 106 18 124/81 (95) 99 01/28/18 04:00 109 18 115/62 (79) 99 01/28/18 04:00 109 01/28/18 04:00 30 01/28/18 04:00 Mechanical Ventilator 01/28/18 03:00 109 18 110/56 (74) 99 01/28/18 02:36 119 13 Mechanical Ventilator 30.0 30 01/28/18 02:35 119 13 30 01/28/18 02:00 119 18 107/56 (73) 99 01/28/18 01:26 99.8 01/28/18 01:17 99.9 127 18 116/57 (76) 99 99.9 01/28/18 01:00 125 15 30 01/28/18 00:27 100.9 01/28/18 00:00 Mechanical Ventilator 01/28/18 00:00 30 01/28/18 00:00 127 01/28/18 00:00 100.9 130 18 120/71 (87) 99 100.9 01/27/18 23:00 124 18 124/81 (95) 99 01/27/18 22:52 127 17 30 01/27/18 22:00 122 18 123/63 (83) 99 01/27/18 21:22 128 20 30 01/27/18 21:00 127 18 138/74 (95) 99 01/27/18 20:00 126 01/27/18 20:00 30 01/27/18 20:00 128 19 138/73 (94) 99 01/27/18 20:00 Mechanical Ventilator 01/27/18 19:06 125 17 30 01/27/18 19:00 99.6 126 19 128/69 (88) 98 99.6 01/27/18 18:00 127 18 124/74 (91) 99 01/27/18 17:00 126 22 120/68 (85) 99 01/27/18 16:32 119 16 30 01/27/18 16:00 100.0 123 18 126/66 (86) 99 100.0 01/27/18 16:00 122 01/27/18 16:00 Mechanical Ventilator 01/27/18 16:00 30 01/27/18 15:00 120 20 124/64 (84) 99 01/27/18 14:54 121 18 30 01/27/18 14:00 122 18 120/64 (82) 99 01/27/18 13:09 116 19 30 01/27/18 13:00 118 19 108/93 (98) 99 01/27/18 12:00 99.3 104 15 118/75 (89) 100 99.3 01/27/18 12:00 30 01/27/18 12:00 Mechanical Ventilator 01/27/18 12:00 116 Intake and Output 01/27/18 01/28/18 19:00 07:00 Intake Total 2234 ml 1353 ml Output Total 2265 ml 1835 ml Balance -31 ml -482 ml IV Total 1684 ml 1303 ml Tube Feeding 420 ml Other 130 ml 50 ml Output Urine Total 1675 ml 1485 ml Stool Total 350 ml 250 ml Drainage Total 240 ml 100 ml Laboratory Tests 01/28/18 05:00: White Blood Count 25.0*H, Red Blood Count 2.23L, Hemoglobin 6.7*L, Hematocrit 20.7L, Mean Corpuscular Volume 93, Mean Corpuscular Hemoglobin 30.2, Mean Corpuscular Hemoglobin Concent 32.6, Red Cell Distribution Width 13.8, Platelet Count 179, Mean Platelet Volume 6.6, Neutrophils (%) (Auto) , Lymphocytes (%) ( Auto) , Monocytes (%) (Auto) , Eosinophils (%) (Auto) , Basophils (%) (Auto) , Differential Total Cells Counted 100, Neutrophils % (Manual) 79H, Lymphocytes % (Manual) 15L, Monocytes % (Manual) 4, Eosinophils % (Manual) 2, Basophils % ( Manual) 0, Band Neutrophils 0, Platelet Estimate Adequate, Platelet Morphology Normal, Hypochromasia 1+, Sodium Level 143, Potassium Level 4.1, Chloride Level 112H, Carbon Dioxide Level 23, Anion Gap 8, Blood Urea Nitrogen 12, Creatinine 1.0, Estimat Glomerular Filtration Rate > 60, Glucose Level 70L, Calcium Level 7.0L, Phosphorus Level 3.5, Magnesium Level 1.3L, Total Bilirubin 0.2, Aspartate Amino Transf (AST/SGOT) 16, Alanine Aminotransferase (ALT/SGPT) 38, Alkaline Phosphatase 70, Pro-B-Type Natriuretic Peptide 347H, Total Protein 5.0L , Albumin 1.2L, Globulin 3.8, Albumin/Globulin Ratio 0.3L, Amylase Level 189H, Lipase 703H 01/28/18 09:40: Prothrombin Time 12.1H, Prothromb Time International Ratio 1.2H, Activated Partial Thromboplast Time 35H Height (Feet): 5 Height (Inches): 3.00 Weight (Pounds): 184 General Appearance: no apparent distress, lethargic EENT: PERRL/EOMI Neck: normal alignment Cardiovascular: tachycardia Respiratory/Chest: no respiratory distress Abdomen: soft Isaiah Noriega MD Jan 28, 2018 12:02
--- NOTE | 2018-01-28 12:10 | Diagnostic Imaging Report ---
Indication: Dyspnea Comparison: 01/27/2018 A single view chest radiograph was obtained. Findings: Hazy basilar opacities are noted once again. PICC line and tracheostomy again noted. Heart size is stable. IMPRESSION: Possible pleural effusion. No significant change
--- NOTE | 2018-01-28 15:33 | General Surgery Progress Note ---
General Surgery-Progress Note Subjective Procedure Performed planned re-exploration of abdomen, sigmoid colectomy, takedown of splenic flexure, left hemicolectomy, creation of transverse colostomy, abdominal closure Symptoms: improved Objective Last 24 Hour Vital Signs Date Time Temp Pulse Resp B/P (MAP) Pulse Ox O2 Delivery O2 Flow Rate FiO2 01/28/18 13:24 110 12 30 01/28/18 12:00 30 01/28/18 12:00 Mechanical Ventilator 01/28/18 12:00 106 01/28/18 12:00 98.1 98 18 103/58 (73) 98 98.1 01/28/18 11:52 100.1 01/28/18 11:28 112 15 30 01/28/18 11:00 102 14 118/63 (81) 95 01/28/18 10:00 105 14 115/58 (77) 95 01/28/18 09:23 110 15 30 01/28/18 09:00 114 18 111/67 (82) 99 01/28/18 08:00 Mechanical Ventilator 01/28/18 08:00 112 01/28/18 08:00 30 01/28/18 08:00 100.1 113 18 103/80 (88) 99 100.1 01/28/18 07:05 113 16 30 01/28/18 07:00 115 18 112/60 (77) 99 01/28/18 06:00 99.8 111 18 111/79 (90) 99 99.8 01/28/18 05:09 105 12 30 01/28/18 05:00 106 18 124/81 (95) 99 01/28/18 04:00 109 18 115/62 (79) 99 01/28/18 04:00 109 01/28/18 04:00 30 01/28/18 04:00 Mechanical Ventilator 01/28/18 03:00 109 18 110/56 (74) 99 01/28/18 02:36 119 13 Mechanical Ventilator 30.0 30 01/28/18 02:35 119 13 30 01/28/18 02:00 119 18 107/56 (73) 99 01/28/18 01:26 99.8 01/28/18 01:17 99.9 127 18 116/57 (76) 99 99.9 01/28/18 01:00 125 15 30 01/28/18 00:27 100.9 01/28/18 00:00 Mechanical Ventilator 01/28/18 00:00 30 01/28/18 00:00 127 01/28/18 00:00 100.9 130 18 120/71 (87) 99 100.9 01/27/18 23:00 124 18 124/81 (95) 99 01/27/18 22:52 127 17 30 01/27/18 22:00 122 18 123/63 (83) 99 01/27/18 21:22 128 20 30 01/27/18 21:00 127 18 138/74 (95) 99 01/27/18 20:00 126 01/27/18 20:00 30 01/27/18 20:00 128 19 138/73 (94) 99 01/27/18 20:00 Mechanical Ventilator 01/27/18 19:06 125 17 30 01/27/18 19:00 99.6 126 19 128/69 (88) 98 99.6 01/27/18 18:00 127 18 124/74 (91) 99 01/27/18 17:00 126 22 120/68 (85) 99 01/27/18 16:32 119 16 30 01/27/18 16:00 100.0 123 18 126/66 (86) 99 100.0 01/27/18 16:00 122 01/27/18 16:00 Mechanical Ventilator 01/27/18 16:00 30 I&O Intake and Output 01/27/18 01/28/18 19:00 07:00 Intake Total 2234 ml 1353 ml Output Total 2265 ml 1835 ml Balance -31 ml -482 ml IV Total 1684 ml 1303 ml Tube Feeding 420 ml Other 130 ml 50 ml Output Urine Total 1675 ml 1485 ml Stool Total 350 ml 250 ml Drainage Total 240 ml 100 ml Dressing: saturated Wound: clean Drains: alec Cardiovascular: RSR Respiratory: decreased breath sounds Abdomen: distended, present bowel sounds Extremities: no cyanosis Laboratory Tests Test 01/28/18 05:00 01/28/18 09:40 White Blood Count 25.0 K/UL (4.8-10.8) *H Red Blood Count 2.23 M/UL (4.20-5.40) L Hemoglobin 6.7 G/DL (12.0-16.0) *L Hematocrit 20.7 % (37.0-47.0) L Mean Corpuscular Volume 93 FL (80-99) Mean Corpuscular Hemoglobin 30.2 PG (27.0-31.0) Mean Corpuscular Hemoglobin Concent 32.6 G/DL (32.0-36.0) Red Cell Distribution Width 13.8 % (11.6-14.8) Platelet Count 179 K/UL (150-450) Mean Platelet Volume 6.6 FL (6.5-10.1) Neutrophils (%) (Auto) % (45.0-75.0) Lymphocytes (%) (Auto) % (20.0-45.0) Monocytes (%) (Auto) % (1.0-10.0) Eosinophils (%) (Auto) % (0.0-3.0) Basophils (%) (Auto) % (0.0-2.0) Differential Total Cells Counted 100 Neutrophils % (Manual) 79 % (45-75) H Lymphocytes % (Manual) 15 % (20-45) L Monocytes % (Manual) 4 % (1-10) Eosinophils % (Manual) 2 % (0-3) Basophils % (Manual) 0 % (0-2) Band Neutrophils 0 % (0-8) Platelet Estimate Adequate Platelet Morphology Normal Hypochromasia 1+ Sodium Level 143 MMOL/L (136-145) Potassium Level 4.1 MMOL/L (3.5-5.1) Chloride Level 112 MMOL/L (98-107) H Carbon Dioxide Level 23 MMOL/L (21-32) Anion Gap 8 mmol/L (5-15) Blood Urea Nitrogen 12 mg/dL (7-18) Creatinine 1.0 MG/DL (0.55-1.30) Estimat Glomerular Filtration Rate > 60 mL/min (>60) Glucose Level 70 MG/DL (74-106) L Calcium Level 7.0 MG/DL (8.5-10.1) L Phosphorus Level 3.5 MG/DL (2.5-4.9) Magnesium Level 1.3 MG/DL (1.8-2.4) L Total Bilirubin 0.2 MG/DL (0.2-1.0) Aspartate Amino Transf (AST/SGOT) 16 U/L (15-37) Alanine Aminotransferase (ALT/SGPT) 38 U/L (12-78) Alkaline Phosphatase 70 U/L (46-116) Pro-B-Type Natriuretic Peptide 347 pg/mL (0-125) H Total Protein 5.0 G/DL (6.4-8.2) L Albumin 1.2 G/DL (3.4-5.0) L Globulin 3.8 g/dL Albumin/Globulin Ratio 0.3 (1.0-2.7) L Amylase Level 189 U/L (25-115) H Lipase 703 U/L (73-393) H Prothrombin Time 12.1 SEC (9.30-11.50) H Prothromb Time International Ratio 1.2 (0.9-1.1) H Activated Partial Thromboplast Time 35 SEC (23-33) H Assessment Post-op Diagnosis s/p exploratory laparotomy, abdominal washout, open abdomen Plan Problems: (1) Severe sepsis Assessment & Plan: 37F severe sepsis. etiology unknown. labs as above. radiology as above. arrested on arrival in ED and currently in ICU. CXR and KUB reviewed. question of possible free air. on KUB very stool filled bowel with dilated bowels On exam with incarcerated umbilical hernia, cannot determine if chronic, acute, bowel or fat. was able to reduce at bedside fortunately. Need CT scan but unfortunately too unstable for examination Warrants diagnostic laparoscopy vs exploration but given recent events, current condition, and history would not be safe and needs resuscitation first. would unlikely tolerate surgery. needs to respond to resuscitation first. likely very dehydrated given labs. s/p ex lap with open abdomen s/p re-ex lap 48hrs after for washout, bowel resection, ostomy, abd closure recovering labs reviewed HD stability improving drains with serous output - lower drain improved ostomy viable with good output now - loose stool tolerating tube feeds improved leukocytosis. tachy. no longer bloody stool drains both serous today. no signs of intraabdominal infection. KUB improved. cultures reviewed. no clear identifiable etiology of leukocytosis. does not warrant re- exploration based on clinical exam only for leukocytosis. wound looks good. drains clear. ostomy functional. -monitor ostomy output. will discuss with GI about bleed -IV fluids -IV Abx -trend labs -rock -drain care and management -packing and dressings to midline wound BID -ostomy care/bag will follow closely. unfortunately very poor prognosis. Marshall Ferguson Jan 28, 2018 15:33
--- NOTE | 2018-01-28 16:52 | Infectious Diseases Prog Note ---
Assessment/Plan Assessment/Plan Assessment: Septic shock ; resolved after surgical exploration- 2ry intraabdominal source- (intra-abdominal peritonitis 2ry to malpositioned gastric feeding tube, incarcerated fat containing ventral hernia and likely sigmoid volvulus) --SP Re-exploration of abdomen, Sigmoid colectomy for volvulus, Takedown of splenic flexure, Left hemicolectomy, Creation of transverse colostomy, Abdominal closure 01/21 -OR findings: no further leakage of gastric contents or feeds. No bleeding. sigmoid colon remained significantly distended despite rectal tube placement and prior decompression. Sigmoid colon easily volvulized intraoperatively. --SP Exploratory laparotomy, Abdominal washout, G-tube replacement, wound vac placment, Excision of incarcerated ventral hernia, and Reduction of sigmoid volvulus 01/19 --no perforation or gross necrosis noted upon surgical exploration --abd fluid cx anerobic Neg; aerobic P. mirabilis (I Cipro, otherwise S), Serratia liquefences (R ancef, levo; otherwise S), CONS -No obvious pathology on lungs on CXR. r/o UTI -Bcx 2/4 Diptheroids, 1/4 CONS (contaminants), Aerococcus sp (typically a urinary pathogen; S Vanco, Ceftriaxone, PNC), ?UTI (often is not isolated from urine culture given special media requirements) -u/a initial normal; repeat WBC 10-15, nit +, leuk +1 but sq cells mod ( contaminated); ucx NTD -CXR: Hyperlucent the upper abdomen. Free air not excluded. Correlate clinically. Distended bowel also noted. No acute disease within the chest. Tracheostomy -CRP impoved (now 7) -Lipase ~1k Fever/leukocytosis; Fever recurrent; r/o bacteremia leukocytosis (peak to 40s; now improving)-Supect Cdiff (increased foul smelling ostomy output, dilation of bowels, no obvious abscess on limited CT). Likely Pancreatitis (elevated Lipase) -KUB / Moderate stool in the rectal vault but overall improved compared to the last study done on January 18, 2018. -u/a p -Bcx p -/8 u/a neg Bc xNTD sp cx MDR ABC, MDR PsA (S Cefepime) CDiff toxin A/B EIA neg (this test ahs low sensitivity); still suspect Cdiff -CT chest/abd/p 7/8: Very limited examination due to the lack of intravenous and oral contrast administration. Status post recent abdominal surgery with open anterior abdominal incision still noted. No abscess. Suggestion of dilatation of multiple loops of small bowel, not evaluated well on this examination. Findings may be due to postoperative ileus. Obstruction is not excludable. Left lower quadrant ostomy noted. Small bilateral pleural effusions and posterior basal atelectasis. Tracheostomy, PICC line, gastrostomy, Rock catheter is in good position. Moderate fecal retention in the rectum which is distended. Anasarca. -CXR: Question of new pneumomediastinum along the left heart margin. Question whether the tracheostomy is appropriately sealed. Basilar opacities again noted, increased on the left. Some of this could be due to differences in positioning, but question increasing pleural fluid and associated atelectasis/consolidation. Right-sided opacity is stable. ?Pneumomediastinum- not see on CT chest Elevated CPK- likely 2ry to sepsis, Dapto possibly also contributing- resolved -Dapto d/c 01/21 POssible PNA- -CXR 01/21: Airspace disease versus atelectasis at the lung bases. Correlate clinically. Probable improvement in interstitial edema since the prior study. -sp cx MDR ABC ( S Bactrim, Tigecycline, Colistin, Polymixin B), E.coli #2 ( S. 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-tube 2014 SN[facility] resident Plan: -Continue Tigecycline #4 (abx d# 11) for intra-abdominal and MDR ABC in sputum coverage and synergistic for possible Cdiff and add IV Cefepime for MDR PsA in repeat sp cx -Continue empiric PO Vancomycin #4 and IV Flagyl #4 for suspected severe CDiff -01/27 SP Micafungin #10 -01/26 SP IV Vancomycin #6, PO Bactrim #5 -01/25 SP Meropenem #8 -01/21 SP Daptomycin #4 (d/c due to elevated CPK) -01/18 SP IV Vancomycin #1, Cefepime x1, Azithromycin x1, Zosyn x1 -f/u repeat u/a w/, Bcx2 -f/u cx -Monitor CBC/BMP, temperatures -Trend WBC -Surgery following -wound care per hospital protocol -Contact bleach precations Thank you for this consultation. Will continue to follow along with you. Discussed with RN and pharmacy staff. Subjective Allergies: Coded Allergies: No Known Allergies (Unverified , 01/18/15) Subjective Tm 100.9 leukocytosis improving repeat Bc xp transferred out of ICU to [facility] Objective Vital Signs Last 24 Hour Vital Signs Date Time Temp Pulse Resp B/P (MAP) Pulse Ox O2 Delivery O2 Flow Rate FiO2 01/28/18 16:00 30 01/28/18 16:00 110 01/28/18 16:00 Mechanical Ventilator 01/28/18 14:48 109 16 30 01/28/18 13:24 110 12 30 01/28/18 12:00 30 01/28/18 12:00 Mechanical Ventilator 01/28/18 12:00 106 01/28/18 12:00 98.1 98 18 103/58 (73) 98 98.1 01/28/18 11:52 100.1 01/28/18 11:28 112 15 30 01/28/18 11:00 102 14 118/63 (81) 95 01/28/18 10:00 105 14 115/58 (77) 95 01/28/18 09:23 110 15 30 01/28/18 09:00 114 18 111/67 (82) 99 01/28/18 08:00 Mechanical Ventilator 01/28/18 08:00 112 01/28/18 08:00 30 01/28/18 08:00 100.1 113 18 103/80 (88) 99 100.1 01/28/18 07:05 113 16 30 01/28/18 07:00 115 18 112/60 (77) 99 01/28/18 06:00 99.8 111 18 111/79 (90) 99 99.8 01/28/18 05:09 105 12 30 01/28/18 05:00 106 18 124/81 (95) 99 01/28/18 04:00 109 18 115/62 (79) 99 01/28/18 04:00 109 01/28/18 04:00 30 01/28/18 04:00 Mechanical Ventilator 01/28/18 03:00 109 18 110/56 (74) 99 01/28/18 02:36 119 13 Mechanical Ventilator 30.0 30 01/28/18 02:35 119 13 30 01/28/18 02:00 119 18 107/56 (73) 99 01/28/18 01:26 99.8 01/28/18 01:17 99.9 127 18 116/57 (76) 99 99.9 01/28/18 01:00 125 15 30 01/28/18 00:27 100.9 01/28/18 00:00 Mechanical Ventilator 01/28/18 00:00 30 01/28/18 00:00 127 01/28/18 00:00 100.9 130 18 120/71 (87) 99 100.9 01/27/18 23:00 124 18 124/81 (95) 99 01/27/18 22:52 127 17 30 01/27/18 22:00 122 18 123/63 (83) 99 01/27/18 21:22 128 20 30 01/27/18 21:00 127 18 138/74 (95) 99 01/27/18 20:00 126 01/27/18 20:00 30 01/27/18 20:00 128 19 138/73 (94) 99 01/27/18 20:00 Mechanical Ventilator 01/27/18 19:06 125 17 30 01/27/18 19:00 99.6 126 19 128/69 (88) 98 99.6 01/27/18 18:00 127 18 124/74 (91) 99 01/27/18 17:00 126 22 120/68 (85) 99 Height (Feet): 5 Height (Inches): 3.00 Weight (Pounds): 184 Objective General Appearance: chronically ill HEENT: normocephalic, bilateral eye PERRL Neck: tracheotomy Respiratory: crackles, rhonchi Cardiovascular : tachycardia Gastrointestinal: Gtube present; significant abd distention with some grimacing upon palpation; diminished to absent bowel sounds Genitourinary: rock in place Musculoskeletal: other - contracted extremities Neurologic: other - nonverbal Skin: no rash or cellulitis Microbiology Date/Time Source Procedure Growth Status 01/26/18 04:04 Stool Clostridium difficile Toxin Assay - Final Complete Laboratory Tests Test 01/28/18 05:00 01/28/18 09:40 White Blood Count 25.0 K/UL (4.8-10.8) *H Red Blood Count 2.23 M/UL (4.20-5.40) L Hemoglobin 6.7 G/DL (12.0-16.0) *L Hematocrit 20.7 % (37.0-47.0) L Mean Corpuscular Volume 93 FL (80-99) Mean Corpuscular Hemoglobin 30.2 PG (27.0-31.0) Mean Corpuscular Hemoglobin Concent 32.6 G/DL (32.0-36.0) Red Cell Distribution Width 13.8 % (11.6-14.8) Platelet Count 179 K/UL (150-450) Mean Platelet Volume 6.6 FL (6.5-10.1) Neutrophils (%) (Auto) % (45.0-75.0) Lymphocytes (%) (Auto) % (20.0-45.0) Monocytes (%) (Auto) % (1.0-10.0) Eosinophils (%) (Auto) % (0.0-3.0) Basophils (%) (Auto) % (0.0-2.0) Differential Total Cells Counted 100 Neutrophils % (Manual) 79 % (45-75) H Lymphocytes % (Manual) 15 % (20-45) L Monocytes % (Manual) 4 % (1-10) Eosinophils % (Manual) 2 % (0-3) Basophils % (Manual) 0 % (0-2) Band Neutrophils 0 % (0-8) Platelet Estimate Adequate Platelet Morphology Normal Hypochromasia 1+ Sodium Level 143 MMOL/L (136-145) Potassium Level 4.1 MMOL/L (3.5-5.1) Chloride Level 112 MMOL/L (98-107) H Carbon Dioxide Level 23 MMOL/L (21-32) Anion Gap 8 mmol/L (5-15) Blood Urea Nitrogen 12 mg/dL (7-18) Creatinine 1.0 MG/DL (0.55-1.30) Estimat Glomerular Filtration Rate > 60 mL/min (>60) Glucose Level 70 MG/DL (74-106) L Calcium Level 7.0 MG/DL (8.5-10.1) L Phosphorus Level 3.5 MG/DL (2.5-4.9) Magnesium Level 1.3 MG/DL (1.8-2.4) L Total Bilirubin 0.2 MG/DL (0.2-1.0) Aspartate Amino Transf (AST/SGOT) 16 U/L (15-37) Alanine Aminotransferase (ALT/SGPT) 38 U/L (12-78) Alkaline Phosphatase 70 U/L (46-116) Pro-B-Type Natriuretic Peptide 347 pg/mL (0-125) H Total Protein 5.0 G/DL (6.4-8.2) L Albumin 1.2 G/DL (3.4-5.0) L Globulin 3.8 g/dL Albumin/Globulin Ratio 0.3 (1.0-2.7) L Amylase Level 189 U/L (25-115) H Lipase 703 U/L (73-393) H Prothrombin Time 12.1 SEC (9.30-11.50) H Prothromb Time International Ratio 1.2 (0.9-1.1) H Activated Partial Thromboplast Time 35 SEC (23-33) H Current Medications Medications (Trade) Dose Ordered Sig/Kel Route PRN Reason Start Time Stop Time Status Last Admin Dose Admin Acetaminophen (Tylenol) 650 mg Q4H PRN ORAL FEVER 01/28/18 05:52 02/17/18 05:51 Chlorhexidine Gluconate (Neela-Hex 2%) 1 applic DAILY@2000 TOPIC 01/28/18 20:00 02/19/18 19:59 Dextrose (Dextrose 50%) 25 ml STAT PRN IV Hypoglycemia 01/28/18 13:00 02/27/18 12:59 Dextrose (Dextrose 50%) 50 ml STAT PRN IV Hypoglycemia 01/28/18 13:00 02/27/18 12:59 Dextrose/ Electrolytes 1,000 ml @ 75 mls/hr [id number] IV 01/28/18 14:00 02/26/18 13:59 01/28/18 13:56 Heparin Sodium (Porcine) (Heparin 5000 units/ml) 5,000 units EVERY 12 HOURS SUBQ 01/28/18 21:00 02/17/18 08:59 Levetiracetam 100 ml @ 400 mls/hr Q12HR IVPB 01/28/18 21:00 02/17/18 22:29 Metronidazole 100 ml @ 100 mls/hr Q8HR IVPB 01/28/18 14:00 02/02/18 10:59 01/28/18 13:56 Micafungin Sodium 100 mg/Sodium Chloride 110 ml @ 110 mls/hr Q24H IVPB 01/28/18 20:30 02/02/18 20:29 Ondansetron HCl (Zofran) 4 mg Q6H PRN IVP Nausea & Vomiting 01/28/18 13:15 02/17/18 07:14 Pantoprazole (Protonix) 40 mg Q12HR IV 01/28/18 21:00 02/17/18 08:59 Phenytoin 150 mg/ Sodium Chloride 58 ml @ 114 mls/hr EVERY 12 HOURS IVPB 01/28/18 21:00 02/17/18 22:29 Polyethylene Glycol (Miralax) 17 gm DAILYPRN PRN ORAL Constipation 01/29/18 13:00 02/17/18 12:59 Tigecycline 50 mg/ Dextrose 110 ml @ 220 mls/hr EVERY 12 HOURS IVPB 01/28/18 21:00 02/01/18 22:59 Vancomycin HCl (Vancomycin) 125 mg FOUR TIMES A DAY ORAL 01/28/18 13:00 02/01/18 17:59 01/28/18 13:00 Amelia Bah M.D. Jan 28, 2018 16:52
--- NOTE | 2018-01-28 17:25 | Cardiology Progress Note ---
Assessment/Plan Status: stable Assessment/Plan (1) Acute on chronic respiratory failure (2) Sepsis (3) Anoxic brain injury (4) Feeding by G-tube (5) Tachycardia (6) S/P exploratory laparotomy, left hemicolectomy Continue Abx No procedures indicated per GI CT abdomen reviewed Continue respiratory support G tube to suction, feels held Wound care per surgery Replete electrolytes, IV lactated ringers Stress steroids stopped due to rising WBC Albumin prn hypotension Pressors off Echo reviewed - stable, no heart failure No indication to start beta blockers for tachycardia, will need to closely monitor hemodynamics in setting of sepsis Poor prognosis Subjective Cardiovascular: Reports: no symptoms Respiratory: Reports: no symptoms Genitourinary: Reports: no symptoms Subjective WBC coming down Transferred to floor No acute events CXR no acute changes Objective Last 24 Hour Vital Signs Date Time Temp Pulse Resp B/P (MAP) Pulse Ox O2 Delivery O2 Flow Rate FiO2 01/28/18 16:00 30 01/28/18 16:00 110 01/28/18 16:00 Mechanical Ventilator 01/28/18 16:00 98.6 109 20 108/60 (76) 99 98.6 01/28/18 14:48 109 16 30 01/28/18 13:24 110 12 30 01/28/18 12:00 30 01/28/18 12:00 Mechanical Ventilator 01/28/18 12:00 106 01/28/18 12:00 98.1 98 18 103/58 (73) 98 98.1 01/28/18 11:52 100.1 01/28/18 11:28 112 15 30 01/28/18 11:00 102 14 118/63 (81) 95 01/28/18 10:00 105 14 115/58 (77) 95 01/28/18 09:23 110 15 30 01/28/18 09:00 114 18 111/67 (82) 99 01/28/18 08:00 Mechanical Ventilator 01/28/18 08:00 112 01/28/18 08:00 30 01/28/18 08:00 100.1 113 18 103/80 (88) 99 100.1 01/28/18 07:05 113 16 30 01/28/18 07:00 115 18 112/60 (77) 99 01/28/18 06:00 99.8 111 18 111/79 (90) 99 99.8 01/28/18 05:09 105 12 30 01/28/18 05:00 106 18 124/81 (95) 99 01/28/18 04:00 109 18 115/62 (79) 99 01/28/18 04:00 109 01/28/18 04:00 30 01/28/18 04:00 Mechanical Ventilator 01/28/18 03:00 109 18 110/56 (74) 99 01/28/18 02:36 119 13 Mechanical Ventilator 30.0 30 01/28/18 02:35 119 13 30 01/28/18 02:00 119 18 107/56 (73) 99 01/28/18 01:26 99.8 01/28/18 01:17 99.9 127 18 116/57 (76) 99 99.9 01/28/18 01:00 125 15 30 01/28/18 00:27 100.9 01/28/18 00:00 Mechanical Ventilator 01/28/18 00:00 30 01/28/18 00:00 127 01/28/18 00:00 100.9 130 18 120/71 (87) 99 100.9 01/27/18 23:00 124 18 124/81 (95) 99 01/27/18 22:52 127 17 30 01/27/18 22:00 122 18 123/63 (83) 99 01/27/18 21:22 128 20 30 01/27/18 21:00 127 18 138/74 (95) 99 01/27/18 20:00 126 01/27/18 20:00 30 01/27/18 20:00 128 19 138/73 (94) 99 01/27/18 20:00 Mechanical Ventilator 01/27/18 19:06 125 17 30 01/27/18 19:00 99.6 126 19 128/69 (88) 98 99.6 01/27/18 18:00 127 18 124/74 (91) 99 General Appearance: no apparent distress, on vent EENT: PERRL/EOMI Neck: non-tender Rhythm: ST Cardiovascular: normal peripheral pulses Respiratory/Chest: chest wall non-tender Abdomen: normal bowel sounds Extremities: normal range of motion Neurologic: adviser sales II-XII 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 Intake and Output 01/27/18 01/28/18 19:00 07:00 Intake Total 2234 ml 1353 ml Output Total 2265 ml 1835 ml Balance -31 ml -482 ml IV Total 1684 ml 1303 ml Tube Feeding 420 ml Other 130 ml 50 ml Output Urine Total 1675 ml 1485 ml Stool Total 350 ml 250 ml Drainage Total 240 ml 100 ml Laboratory Tests Test 01/28/18 05:00 01/28/18 09:40 White Blood Count 25.0 K/UL (4.8-10.8) *H Red Blood Count 2.23 M/UL (4.20-5.40) L Hemoglobin 6.7 G/DL (12.0-16.0) *L Hematocrit 20.7 % (37.0-47.0) L Mean Corpuscular Volume 93 FL (80-99) Mean Corpuscular Hemoglobin 30.2 PG (27.0-31.0) Mean Corpuscular Hemoglobin Concent 32.6 G/DL (32.0-36.0) Red Cell Distribution Width 13.8 % (11.6-14.8) Platelet Count 179 K/UL (150-450) Mean Platelet Volume 6.6 FL (6.5-10.1) Neutrophils (%) (Auto) % (45.0-75.0) Lymphocytes (%) (Auto) % (20.0-45.0) Monocytes (%) (Auto) % (1.0-10.0) Eosinophils (%) (Auto) % (0.0-3.0) Basophils (%) (Auto) % (0.0-2.0) Differential Total Cells Counted 100 Neutrophils % (Manual) 79 % (45-75) H Lymphocytes % (Manual) 15 % (20-45) L Monocytes % (Manual) 4 % (1-10) Eosinophils % (Manual) 2 % (0-3) Basophils % (Manual) 0 % (0-2) Band Neutrophils 0 % (0-8) Platelet Estimate Adequate Platelet Morphology Normal Hypochromasia 1+ Sodium Level 143 MMOL/L (136-145) Potassium Level 4.1 MMOL/L (3.5-5.1) Chloride Level 112 MMOL/L (98-107) H Carbon Dioxide Level 23 MMOL/L (21-32) Anion Gap 8 mmol/L (5-15) Blood Urea Nitrogen 12 mg/dL (7-18) Creatinine 1.0 MG/DL (0.55-1.30) Estimat Glomerular Filtration Rate > 60 mL/min (>60) Glucose Level 70 MG/DL (74-106) L Calcium Level 7.0 MG/DL (8.5-10.1) L Phosphorus Level 3.5 MG/DL (2.5-4.9) Magnesium Level 1.3 MG/DL (1.8-2.4) L Total Bilirubin 0.2 MG/DL (0.2-1.0) Aspartate Amino Transf (AST/SGOT) 16 U/L (15-37) Alanine Aminotransferase (ALT/SGPT) 38 U/L (12-78) Alkaline Phosphatase 70 U/L (46-116) Pro-B-Type Natriuretic Peptide 347 pg/mL (0-125) H Total Protein 5.0 G/DL (6.4-8.2) L Albumin 1.2 G/DL (3.4-5.0) L Globulin 3.8 g/dL Albumin/Globulin Ratio 0.3 (1.0-2.7) L Amylase Level 189 U/L (25-115) H Lipase 703 U/L (73-393) H Prothrombin Time 12.1 SEC (9.30-11.50) H Prothromb Time International Ratio 1.2 (0.9-1.1) H Activated Partial Thromboplast Time 35 SEC (23-33) H Microbiology Date/Time Source Procedure Growth Status 01/26/18 04:04 Stool Clostridium difficile Toxin Assay - Final Complete Rob Cote M.D. Jan 28, 2018 17:25
--- NOTE | 2018-01-28 19:13 | Internal Med Progress Note ---
Subjective Date of Service: Jan 28, 2018 Physician Name Porter,Adrian Attending Physician Guillermo Morel MD Current Medications Medications (Trade) Dose Ordered Sig/Kel Route PRN Reason Start Time Stop Time Status Last Admin Dose Admin Acetaminophen (Tylenol) 650 mg Q4H PRN ORAL FEVER 01/28/18 05:52 02/17/18 05:51 Cefepime HCl 1 gm/ Dextrose 110 ml @ 220 mls/hr EVERY 12 HOURS IVPB 01/28/18 21:00 02/04/18 20:59 Chlorhexidine Gluconate (Neela-Hex 2%) 1 applic DAILY@2000 TOPIC 01/28/18 20:00 02/19/18 19:59 Dextrose (Dextrose 50%) 25 ml STAT PRN IV Hypoglycemia 01/28/18 13:00 02/27/18 12:59 Dextrose (Dextrose 50%) 50 ml STAT PRN IV Hypoglycemia 01/28/18 13:00 02/27/18 12:59 Dextrose/ Electrolytes 1,000 ml @ 75 mls/hr [id number] IV 01/28/18 14:00 02/26/18 13:59 01/28/18 13:56 Heparin Sodium (Porcine) (Heparin 5000 units/ml) 5,000 units EVERY 12 HOURS SUBQ 01/28/18 21:00 02/17/18 08:59 Levetiracetam 100 ml @ 400 mls/hr Q12HR IVPB 01/28/18 21:00 02/17/18 22:29 Metronidazole 100 ml @ 100 mls/hr Q8HR IVPB 01/28/18 14:00 02/02/18 10:59 01/28/18 13:56 Ondansetron HCl (Zofran) 4 mg Q6H PRN IVP Nausea & Vomiting 01/28/18 13:15 02/17/18 07:14 Pantoprazole (Protonix) 40 mg Q12HR IV 01/28/18 21:00 02/17/18 08:59 Phenytoin 150 mg/ Sodium Chloride 58 ml @ 114 mls/hr EVERY 12 HOURS IVPB 01/28/18 21:00 02/17/18 22:29 Polyethylene Glycol (Miralax) 17 gm DAILYPRN PRN ORAL Constipation 01/29/18 13:00 02/17/18 12:59 Tigecycline 50 mg/ Dextrose 110 ml @ 220 mls/hr EVERY 12 HOURS IVPB 01/28/18 21:00 02/01/18 22:59 Vancomycin HCl (Vancomycin) 125 mg FOUR TIMES A DAY ORAL 01/28/18 13:00 02/01/18 17:59 01/28/18 18:05 Allergies: Coded Allergies: No Known Allergies (Unverified , 01/18/15) ROS Limited/Unobtainable: Yes Subjective 37 YO F admitted with abdominal distention. S/P cardiac arrest. S/P exploratory laparotomy 01/19/18. S/P sigmoidectomy and hemicolectomy 01/21/18. Cover for Int Med-Dr Moerl. Intubated and sedated. [facility] Objective Last Vital Signs Date Time Temp Pulse Resp B/P (MAP) Pulse Ox O2 Delivery O2 Flow Rate FiO2 01/28/18 18:52 107 12 30 01/28/18 16:00 Mechanical Ventilator 01/28/18 16:00 98.6 108/60 (76) 99 98.6 01/28/18 02:36 30.0 Laboratory Tests Test 01/28/18 05:00 01/28/18 09:40 White Blood Count 25.0 K/UL (4.8-10.8) *H Red Blood Count 2.23 M/UL (4.20-5.40) L Hemoglobin 6.7 G/DL (12.0-16.0) *L Hematocrit 20.7 % (37.0-47.0) L Mean Corpuscular Volume 93 FL (80-99) Mean Corpuscular Hemoglobin 30.2 PG (27.0-31.0) Mean Corpuscular Hemoglobin Concent 32.6 G/DL (32.0-36.0) Red Cell Distribution Width 13.8 % (11.6-14.8) Platelet Count 179 K/UL (150-450) Mean Platelet Volume 6.6 FL (6.5-10.1) Neutrophils (%) (Auto) % (45.0-75.0) Lymphocytes (%) (Auto) % (20.0-45.0) Monocytes (%) (Auto) % (1.0-10.0) Eosinophils (%) (Auto) % (0.0-3.0) Basophils (%) (Auto) % (0.0-2.0) Differential Total Cells Counted 100 Neutrophils % (Manual) 79 % (45-75) H Lymphocytes % (Manual) 15 % (20-45) L Monocytes % (Manual) 4 % (1-10) Eosinophils % (Manual) 2 % (0-3) Basophils % (Manual) 0 % (0-2) Band Neutrophils 0 % (0-8) Platelet Estimate Adequate Platelet Morphology Normal Hypochromasia 1+ Sodium Level 143 MMOL/L (136-145) Potassium Level 4.1 MMOL/L (3.5-5.1) Chloride Level 112 MMOL/L (98-107) H Carbon Dioxide Level 23 MMOL/L (21-32) Anion Gap 8 mmol/L (5-15) Blood Urea Nitrogen 12 mg/dL (7-18) Creatinine 1.0 MG/DL (0.55-1.30) Estimat Glomerular Filtration Rate > 60 mL/min (>60) Glucose Level 70 MG/DL (74-106) L Calcium Level 7.0 MG/DL (8.5-10.1) L Phosphorus Level 3.5 MG/DL (2.5-4.9) Magnesium Level 1.3 MG/DL (1.8-2.4) L Total Bilirubin 0.2 MG/DL (0.2-1.0) Aspartate Amino Transf (AST/SGOT) 16 U/L (15-37) Alanine Aminotransferase (ALT/SGPT) 38 U/L (12-78) Alkaline Phosphatase 70 U/L (46-116) Pro-B-Type Natriuretic Peptide 347 pg/mL (0-125) H Total Protein 5.0 G/DL (6.4-8.2) L Albumin 1.2 G/DL (3.4-5.0) L Globulin 3.8 g/dL Albumin/Globulin Ratio 0.3 (1.0-2.7) L Amylase Level 189 U/L (25-115) H Lipase 703 U/L (73-393) H Prothrombin Time 12.1 SEC (9.30-11.50) H Prothromb Time International Ratio 1.2 (0.9-1.1) H Activated Partial Thromboplast Time 35 SEC (23-33) H Microbiology Date/Time Source Procedure Growth Status 01/26/18 04:04 Stool Clostridium difficile Toxin Assay - Final Complete Intake and Output 01/27/18 01/28/18 19:00 07:00 Intake Total 2234 ml 1353 ml Output Total 2265 ml 1835 ml Balance -31 ml -482 ml IV Total 1684 ml 1303 ml Tube Feeding 420 ml Other 130 ml 50 ml Output Urine Total 1675 ml 1485 ml Stool Total 350 ml 250 ml Drainage Total 240 ml 100 ml Objective General Appearance: WD/WN, lethargic EENT: normal ENT inspection Neck: non-tender, normal alignment, supple, other - tracheostomy Cardiovascular: normal peripheral pulses, normal rate, regular rhythm, regularly irregular, no gallop/murmur, no JVD Respiratory/Chest: Mech vent; chest wall non-tender, no accessory muscle use, rhonchi - bilaterally, other - Mech Vent Abdomen: normal bowel sounds, non tender, soft, no organomegaly, no mass Extremities: normal inspection Skin: normal pigmentation, warm/dry Assessment/Plan Problem List: (1) Incarcerated ventral hernia Assessment & Plan: S/P exploratory laparotomy on 01/19/18-see surgery note. S/P sigmoidectomy, omentectomy and hemicolectomy on 01/21/18. Continue vanco, flagyl , tigecycline and micafungin per ID (2) Volvulus of sigmoid colon (3) Abdominal distension Assessment & Plan: Resolving-see surgery note. (4) Cardiac arrest Assessment & Plan: see cardiology note (5) Seizure disorder Assessment & Plan: Continue keppra and dilantin (6) Anemia (7) Hypertension Assessment & Plan: Hypotensived. Currently on pressors. (8) Encephalopathy (9) Dysphagia (10) Tachycardia (11) Severe sepsis Assessment & Plan: See ID note. (12) Anoxic brain injury (13) Respiratory failure (14) Leukocytosis Assessment & Plan: Worsening. See ID note Status: not improved Assessment/Plan prognosis is guarded. Adrian Porter MD Jan 28, 2018 19:13
[2018-01-28] MEDS: Dyna-Hex 2% Top Sol 2oz TOPIC SCH (20:17)
[2018-01-28] MEDS ORDERED: Micafungin 100 MG in NS 110 ML IVPB SCH (20:30)
[2018-01-28] MEDS: Cefepime HCl 1 GM in D5W 110 ML IVPB SCH (21:06)
[2018-01-29] VITALS: BP 105/70
[2018-01-29 04:00] VITALS: BP 124/60
[2018-01-29 05:55] LABS: HEMATOCRIT 20.8 % (37.0-47.0); MEAN CORPUSCULAR VOLUME 92 FL (80-99); PLATELET COUNT 230 K/UL (150-450); RED BLOOD COUNT 2.25 M/UL (4.20-5.40); RED CELL DISTRIBUTION WIDTH 13.2 % (11.6-14.8); WHITE BLOOD COUNT 19.3 K/UL (4.8-10.8)
[2018-01-29 05:58] LABS: HEMOGLOBIN 6.5 G/DL (12.0-16.0)
[2018-01-29 06:04] LABS: ALANINE AMINOTRANSFERASE 32 U/L (12-78); ALBUMIN 1.3 G/DL (3.4-5.0); ALBUMIN/GLOBULIN RATIO 0.3 (1.0-2.7); ALKALINE PHOSPHATASE 71 U/L (46-116); ANION GAP 7 mmol/L (5-15); ASPARTATE AMINO TRANSFERASE 15 U/L (15-37); BILIRUBIN,TOTAL 0.3 MG/DL (0.2-1.0); BLOOD UREA NITROGEN 8 mg/dL (7-18); CALCIUM 7.1 MG/DL (8.5-10.1); CARBON DIOXIDE 22 MMOL/L (21-32); CHLORIDE 112 MMOL/L (98-107); POTASSIUM 4.5 MMOL/L (3.5-5.1); SODIUM 141 MMOL/L (136-145)
[2018-01-29 08:00] VITALS: BP 126/66
[2018-01-29] MEDS: Heparin 5000 units/ml inj SUBQ SCH ×2 (09:00→21:00)
[2018-01-29] MEDS: Pantoprazole Inj IV SCH ×2 (09:36→21:43)
[2018-01-29] MEDS: Tigecycline 50 MG in D5W 110 ML IVPB SCH ×2 (09:37→21:46)
[2018-01-29] MEDS: Cefepime HCl 1 GM in D5W 110 ML IVPB SCH ×2 (09:37→21:46)
[2018-01-29] MEDS: PHENYTOIN IVPB SCH ×2 (09:37→21:45)
[2018-01-29] MEDS: NS IVPB SCH ×2 (09:37→21:45)
[2018-01-29] MEDS: levETIRAcetam 1,000mg/NS100ml 100 ML IVPB SCH ×2 (09:38→21:46)
[2018-01-29] MEDS: Vancomycin oral 125mg/2.5ml ORAL SCH ×4 (09:38→21:46)
--- NOTE | 2018-01-29 09:49 | Nephrology Progress Note ---
Assessment/Plan Assessment/Plan 1. INDIRA- resolved, - Cr normal 2. Hypok+/Mg- replace prn 3. Resp FL:- trached on the ventilator 4- Sepsis- abx. -s/p re-exploration of abdomen, sigmoid colectomy, takedown of splenic flexure, left hemicolectomy, creation of transverse colostomy, abdominal closure per gen surgery 5. Anemia- prn blood tx per Heme Subjective Date patient seen: Jan 29, 2018 Time patient seen: 09:41 ROS Limited/Unobtainable: Yes Allergies: Coded Allergies: No Known Allergies (Unverified , 01/18/15) Subjective Patient remains trached/vent. Febrile Objective Last 24 Hour Vital Signs Date Time Temp Pulse Resp B/P (MAP) Pulse Ox O2 Delivery O2 Flow Rate FiO2 01/29/18 08:00 99.8 120 20 126/66 (86) 98 99.8 01/29/18 08:00 Mechanical Ventilator 01/29/18 08:00 30 01/29/18 07:21 115 18 30 01/29/18 05:56 100.5 01/29/18 05:05 124 14 30 01/29/18 04:57 101.7 01/29/18 04:00 30 01/29/18 04:00 119 01/29/18 04:00 101.7 120 20 124/60 (81) 98 101.7 01/29/18 04:00 Mechanical Ventilator 01/29/18 03:10 116 15 30 01/29/18 01:19 109 13 30 01/29/18 00:00 Mechanical Ventilator 01/29/18 00:00 98.9 105 20 105/70 (82) 98 98.9 01/29/18 00:00 108 01/29/18 00:00 30 01/28/18 23:26 108 13 30 01/28/18 21:12 117 17 30 01/28/18 20:33 100.3 01/28/18 20:00 100.3 115 20 127/68 (87) 99 100.3 01/28/18 20:00 30 01/28/18 20:00 Mechanical Ventilator 01/28/18 20:00 116 01/28/18 18:52 107 12 30 01/28/18 17:28 115 19 30 01/28/18 16:00 30 01/28/18 16:00 110 01/28/18 16:00 Mechanical Ventilator 01/28/18 16:00 98.6 109 20 108/60 (76) 99 98.6 01/28/18 14:48 109 16 30 01/28/18 13:24 110 12 30 01/28/18 12:00 30 01/28/18 12:00 Mechanical Ventilator 01/28/18 12:00 106 01/28/18 12:00 98.1 98 18 103/58 (73) 98 98.1 01/28/18 11:52 100.1 01/28/18 11:28 112 15 30 01/28/18 11:00 102 14 118/63 (81) 95 01/28/18 10:00 105 14 115/58 (77) 95 Intake and Output 01/28/18 01/29/18 19:00 07:00 Intake Total 325 ml 1375 ml Output Total 1670 ml 2050 ml Balance -1345 ml -675 ml IV Total 325 ml 1375 ml Output Urine Total 1600 ml 2000 ml Drainage Total 70 ml 50 ml # Bowel Movements 1 100 Laboratory Tests 01/29/18 05:00: White Blood Count 19.3H, Red Blood Count 2.25L, Hemoglobin 6.5*L, Hematocrit 20.8L, Mean Corpuscular Volume 92, Mean Corpuscular Hemoglobin 29.0, Mean Corpuscular Hemoglobin Concent 31.3L, Red Cell Distribution Width 13.2, Platelet Count 230, Mean Platelet Volume 6.5, Neutrophils (%) (Auto) , Lymphocytes (%) (Auto) , Monocytes (%) (Auto) , Eosinophils (%) (Auto) , Basophils (%) (Auto) , Differential Total Cells Counted 100, Neutrophils % ( Manual) 75, Lymphocytes % (Manual) 15L, Monocytes % (Manual) 9, Eosinophils % ( Manual) 1, Basophils % (Manual) 0, Band Neutrophils 0, Platelet Estimate Adequate, Platelet Morphology Normal, Hypochromasia 1+, Sodium Level 141, Potassium Level 4.5, Chloride Level 112H, Carbon Dioxide Level 22, Anion Gap 7, Blood Urea Nitrogen 8, Creatinine 1.0, Estimat Glomerular Filtration Rate > 60, Glucose Level 75, Calcium Level 7.1L, Total Bilirubin 0.3, Aspartate Amino Transf (AST/SGOT) 15, Alanine Aminotransferase (ALT/SGPT) 32, Alkaline Phosphatase 71, Pro-B-Type Natriuretic Peptide 210H, Total Protein 5.5L, Albumin 1.3L, Globulin 4.2, Albumin/Globulin Ratio 0.3L Height (Feet): 5 Height (Inches): 3.00 Weight (Pounds): 185 General Appearance: lethargic EENT: PERRL/EOMI Neck: normal alignment, supple Cardiovascular: normal rate, regular rhythm Respiratory/Chest: rhonchi - bilaterally Abdomen: non tender, soft Edema: no edema noted Arm (L), no edema noted Arm (R), no edema noted Leg (L), no edema noted Leg (R), no edema noted Pedal (L), no edema noted Pedal (R), no edema noted Generalized Raudel Jimenez M.D. Jan 29, 2018 09:49
--- NOTE | 2018-01-29 09:56 | Pulmonolgy Critical Care Note ---
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 Critical Care - Objective Last 24 Hour Vital Signs Date Time Temp Pulse Resp B/P (MAP) Pulse Ox O2 Delivery O2 Flow Rate FiO2 01/29/18 08:00 99.8 120 20 126/66 (86) 98 99.8 01/29/18 08:00 Mechanical Ventilator 01/29/18 08:00 30 01/29/18 07:21 115 18 30 01/29/18 05:56 100.5 01/29/18 05:05 124 14 30 01/29/18 04:57 101.7 01/29/18 04:00 30 01/29/18 04:00 119 01/29/18 04:00 101.7 120 20 124/60 (81) 98 101.7 01/29/18 04:00 Mechanical Ventilator 01/29/18 03:10 116 15 30 01/29/18 01:19 109 13 30 01/29/18 00:00 Mechanical Ventilator 01/29/18 00:00 98.9 105 20 105/70 (82) 98 98.9 01/29/18 00:00 108 01/29/18 00:00 30 01/28/18 23:26 108 13 30 01/28/18 21:12 117 17 30 01/28/18 20:33 100.3 01/28/18 20:00 100.3 115 20 127/68 (87) 99 100.3 01/28/18 20:00 30 01/28/18 20:00 Mechanical Ventilator 01/28/18 20:00 116 01/28/18 18:52 107 12 30 01/28/18 17:28 115 19 30 01/28/18 16:00 30 01/28/18 16:00 110 01/28/18 16:00 Mechanical Ventilator 01/28/18 16:00 98.6 109 20 108/60 (76) 99 98.6 01/28/18 14:48 109 16 30 7/12/18 13:24 110 12 30 01/28/18 12:00 30 01/28/18 12:00 Mechanical Ventilator 01/28/18 12:00 106 01/28/18 12:00 98.1 98 18 103/58 (73) 98 98.1 01/28/18 11:52 100.1 01/28/18 11:28 112 15 30 01/28/18 11:00 102 14 118/63 (81) 95 01/28/18 10:00 105 14 115/58 (77) 95 Status: awake Condition: critical Neck: full ROM Lungs: clear Heart: HR/BP stable Abdomen: non-tender, feeding tube Decubiti: location Accucheck: 248 Critical Care - Subjective ROS Limited/Unobtainable: No Condition: critical EKG Rhythm: Sinus Bradycardia FI02: 30 Vent Support Breath Rate: 12 Vent Support Mode: AC Vent Tidal Volume: 600 Sputum Amount: Small PEEP: 5.0 PIP: 39 I&O: Intake and Output 01/28/18 01/29/18 19:00 07:00 Intake Total 325 ml 1375 ml Output Total 1670 ml 2050 ml Balance -1345 ml -675 ml IV Total 325 ml 1375 ml Output Urine Total 1600 ml 2000 ml Drainage Total 70 ml 50 ml # Bowel Movements 1 100 Labs: Laboratory Tests Test 01/29/18 05:00 White Blood Count 19.3 K/UL (4.8-10.8) H Red Blood Count 2.25 M/UL (4.20-5.40) L Hemoglobin 6.5 G/DL (12.0-16.0) *L Hematocrit 20.8 % (37.0-47.0) L Mean Corpuscular Volume 92 FL (80-99) Mean Corpuscular Hemoglobin 29.0 PG (27.0-31.0) Mean Corpuscular Hemoglobin Concent 31.3 G/DL (32.0-36.0) L Red Cell Distribution Width 13.2 % (11.6-14.8) Platelet Count 230 K/UL (150-450) Mean Platelet Volume 6.5 FL (6.5-10.1) Neutrophils (%) (Auto) % (45.0-75.0) Lymphocytes (%) (Auto) % (20.0-45.0) Monocytes (%) (Auto) % (1.0-10.0) Eosinophils (%) (Auto) % (0.0-3.0) Basophils (%) (Auto) % (0.0-2.0) Differential Total Cells Counted 100 Neutrophils % (Manual) 75 % (45-75) Lymphocytes % (Manual) 15 % (20-45) L Monocytes % (Manual) 9 % (1-10) Eosinophils % (Manual) 1 % (0-3) Basophils % (Manual) 0 % (0-2) Band Neutrophils 0 % (0-8) Platelet Estimate Adequate Platelet Morphology Normal Hypochromasia 1+ Sodium Level 141 MMOL/L (136-145) Potassium Level 4.5 MMOL/L (3.5-5.1) Chloride Level 112 MMOL/L (98-107) H Carbon Dioxide Level 22 MMOL/L (21-32) Anion Gap 7 mmol/L (5-15) Blood Urea Nitrogen 8 mg/dL (7-18) Creatinine 1.0 MG/DL (0.55-1.30) Estimat Glomerular Filtration Rate > 60 mL/min (>60) Glucose Level 75 MG/DL (74-106) Calcium Level 7.1 MG/DL (8.5-10.1) L Total Bilirubin 0.3 MG/DL (0.2-1.0) Aspartate Amino Transf (AST/SGOT) 15 U/L (15-37) Alanine Aminotransferase (ALT/SGPT) 32 U/L (12-78) Alkaline Phosphatase 71 U/L (46-116) Pro-B-Type Natriuretic Peptide 210 pg/mL (0-125) H Total Protein 5.5 G/DL (6.4-8.2) L Albumin 1.3 G/DL (3.4-5.0) L Globulin 4.2 g/dL Albumin/Globulin Ratio 0.3 (1.0-2.7) L Yanick Hernandez MD Jan 29, 2018 09:56
--- NOTE | 2018-01-29 10:31 | GI Progress Note ---
Assessment/Plan Problems: (1) GI bleed ICD Codes: K92.2 - Gastrointestinal hemorrhage, unspecified SNOMED: 19239639 (2) Feeding by G-tube ICD Codes: Z93.1 - Feeding by G-tube SNOMED: 026958246 (3) Anoxic brain injury ICD Codes: G93.1 - Anoxic brain injury SNOMED: 307753798 (4) Severe sepsis ICD Codes: A41.9 - Sepsis, unspecified organism; R65.20 - Severe sepsis without septic shock SNOMED: 77793394 (5) Anemia ICD Codes: D64.9 - Anemia SNOMED: 036985125 Status: unchanged Status Narrative Discussed with Dr. Reese. Assessment/Plan anemia work up reviewed - folate deficiency - no iron deficiency - downtrending H&H active GI bleed, most likely due to recent surgery cdiff negative lipase elevation gastric lavage >> no heme noted normal coags colostomy drainage >> previous noted with blood, now brown. defer any GI procedures given recent surgery stop GTFs at this time to allow for bowel rest >> plan to restart tomorrow if Hgb stable IV hydration + electrolyte correction monitor H&H, transfuse prn per hematology folate ppi BID trend lipase fu labs The patient was seen and examined at bedside and all new and available data was reviewed in the patients chart. I agree with the above findings, impression and plan. (Patient seen earlier today. Signature stamp does not reflect patient encounter time.). - Baldemar Reese MD Subjective Subjective limited Objective Last 24 Hour Vital Signs Date Time Temp Pulse Resp B/P (MAP) Pulse Ox O2 Delivery O2 Flow Rate FiO2 01/29/18 08:45 116 26 30 01/29/18 08:00 99.8 120 20 126/66 (86) 98 99.8 01/29/18 08:00 Mechanical Ventilator 01/29/18 08:00 30 01/29/18 07:54 116 01/29/18 07:21 115 18 30 01/29/18 05:56 100.5 01/29/18 05:05 124 14 30 01/29/18 04:57 101.7 01/29/18 04:00 30 01/29/18 04:00 119 01/29/18 04:00 101.7 120 20 124/60 (81) 98 101.7 01/29/18 04:00 Mechanical Ventilator 01/29/18 03:10 116 15 30 01/29/18 01:19 109 13 30 01/29/18 00:00 Mechanical Ventilator 01/29/18 00:00 98.9 105 20 105/70 (82) 98 98.9 01/29/18 00:00 108 01/29/18 00:00 30 01/28/18 23:26 108 13 30 01/28/18 21:12 117 17 30 01/28/18 20:33 100.3 01/28/18 20:00 100.3 115 20 127/68 (87) 99 100.3 01/28/18 20:00 30 01/28/18 20:00 Mechanical Ventilator 01/28/18 20:00 116 01/28/18 18:52 107 12 30 01/28/18 17:28 115 19 30 01/28/18 16:00 30 01/28/18 16:00 110 01/28/18 16:00 Mechanical Ventilator 01/28/18 16:00 98.6 109 20 108/60 (76) 99 98.6 01/28/18 14:48 109 16 30 01/28/18 13:24 110 12 30 01/28/18 12:00 30 01/28/18 12:00 Mechanical Ventilator 01/28/18 12:00 106 01/28/18 12:00 98.1 98 18 103/58 (73) 98 98.1 01/28/18 11:52 100.1 01/28/18 11:28 112 15 30 01/28/18 11:00 102 14 118/63 (81) 95 Intake and Output 01/28/18 01/29/18 19:00 07:00 Intake Total 325 ml 1375 ml Output Total 1670 ml 2050 ml Balance -1345 ml -675 ml IV Total 325 ml 1375 ml Output Urine Total 1600 ml 2000 ml Drainage Total 70 ml 50 ml # Bowel Movements 1 100 Laboratory Tests Test 01/29/18 05:00 White Blood Count 19.3 K/UL (4.8-10.8) H Red Blood Count 2.25 M/UL (4.20-5.40) L Hemoglobin 6.5 G/DL (12.0-16.0) *L Hematocrit 20.8 % (37.0-47.0) L Mean Corpuscular Volume 92 FL (80-99) Mean Corpuscular Hemoglobin 29.0 PG (27.0-31.0) Mean Corpuscular Hemoglobin Concent 31.3 G/DL (32.0-36.0) L Red Cell Distribution Width 13.2 % (11.6-14.8) Platelet Count 230 K/UL (150-450) Mean Platelet Volume 6.5 FL (6.5-10.1) Neutrophils (%) (Auto) % (45.0-75.0) Lymphocytes (%) (Auto) % (20.0-45.0) Monocytes (%) (Auto) % (1.0-10.0) Eosinophils (%) (Auto) % (0.0-3.0) Basophils (%) (Auto) % (0.0-2.0) Differential Total Cells Counted 100 Neutrophils % (Manual) 75 % (45-75) Lymphocytes % (Manual) 15 % (20-45) L Monocytes % (Manual) 9 % (1-10) Eosinophils % (Manual) 1 % (0-3) Basophils % (Manual) 0 % (0-2) Band Neutrophils 0 % (0-8) Platelet Estimate Adequate Platelet Morphology Normal Hypochromasia 1+ Sodium Level 141 MMOL/L (136-145) Potassium Level 4.5 MMOL/L (3.5-5.1) Chloride Level 112 MMOL/L (98-107) H Carbon Dioxide Level 22 MMOL/L (21-32) Anion Gap 7 mmol/L (5-15) Blood Urea Nitrogen 8 mg/dL (7-18) Creatinine 1.0 MG/DL (0.55-1.30) Estimat Glomerular Filtration Rate > 60 mL/min (>60) Glucose Level 75 MG/DL (74-106) Calcium Level 7.1 MG/DL (8.5-10.1) L Total Bilirubin 0.3 MG/DL (0.2-1.0) Aspartate Amino Transf (AST/SGOT) 15 U/L (15-37) Alanine Aminotransferase (ALT/SGPT) 32 U/L (12-78) Alkaline Phosphatase 71 U/L (46-116) Pro-B-Type Natriuretic Peptide 210 pg/mL (0-125) H Total Protein 5.5 G/DL (6.4-8.2) L Albumin 1.3 G/DL (3.4-5.0) L Globulin 4.2 g/dL Albumin/Globulin Ratio 0.3 (1.0-2.7) L Height (Feet): 5 Height (Inches): 3.00 Weight (Pounds): 185 General Appearance: no apparent distress, thin Cardiovascular: normal rate Respiratory/Chest: other - mech vent Abdominal Exam: GT site - c/d/i, other - colostomy Ron Mead NP Jan 29, 2018 10:31
[2018-01-29 12:00] VITALS: BP 122/59
--- NOTE | 2018-01-29 12:49 | General Progress Note ---
Assessment/Plan Status: stable Assessment/Plan #. Leukocytosis, likely due to infection, peritonitis, now better --> The patient with lactic acidosis. Lactic acid 7.4. --> Currently on pressors. Rule out infectious etiology. --> On broad-spectrum antibiotics and antifungals. --> Closely monitor for improvement. #. Anemia currently due to blood loss from surgery in addition to hemodilution --> cr goal is >7 --> jak2 level pending under serology as she had erythrocytosis on presentation --> anemia w/u has been reviewed #. Coagulopathy with inr 1.6 likely due to malnutrition v dic --> obtain a mixing study #. Septic shock, closely monitor, --> on antibiotics, broad spectrum. #. Seizure disorder, currently on antiseizure medication. #. Respiratory failure, status post trach and vent. #. Dysphagia, status post gastrostomy tube. The time the note was entered does not necessarily correspond to the time the patient was seen. Subjective Date patient seen: Jan 29, 2018 ROS Limited/Unobtainable: Yes Hematologic/Lymphatic: Reports: anemia Allergies: Coded Allergies: No Known Allergies (Unverified , 01/18/15) All Systems: reviewed and negative except above Subjective Pt transferred from ICU to step down unit. No acute events. CXR shows possible pleural effusion. Visible wounds from colon resection. Objective Last 24 Hour Vital Signs Date Time Temp Pulse Resp B/P (MAP) Pulse Ox O2 Delivery O2 Flow Rate FiO2 01/29/18 10:51 116 22 30 01/29/18 08:45 116 26 30 01/29/18 08:00 99.8 120 20 126/66 (86) 98 99.8 01/29/18 08:00 Mechanical Ventilator 01/29/18 08:00 30 01/29/18 07:54 116 01/29/18 07:21 115 18 30 01/29/18 05:56 100.5 01/29/18 05:05 124 14 30 01/29/18 04:57 101.7 01/29/18 04:00 30 01/29/18 04:00 119 01/29/18 04:00 101.7 120 20 124/60 (81) 98 101.7 01/29/18 04:00 Mechanical Ventilator 01/29/18 03:10 116 15 30 01/29/18 01:19 109 13 30 7/13/18 00:00 Mechanical Ventilator 01/29/18 00:00 98.9 105 20 105/70 (82) 98 98.9 01/29/18 00:00 108 01/29/18 00:00 30 01/28/18 23:26 108 13 30 01/28/18 21:12 117 17 30 01/28/18 20:33 100.3 01/28/18 20:00 100.3 115 20 127/68 (87) 99 100.3 01/28/18 20:00 30 01/28/18 20:00 Mechanical Ventilator 01/28/18 20:00 116 01/28/18 18:52 107 12 30 01/28/18 17:28 115 19 30 01/28/18 16:00 30 01/28/18 16:00 110 01/28/18 16:00 Mechanical Ventilator 01/28/18 16:00 98.6 109 20 108/60 (76) 99 98.6 01/28/18 14:48 109 16 30 01/28/18 13:24 110 12 30 Intake and Output 01/28/18 01/29/18 19:00 07:00 Intake Total 325 ml 1375 ml Output Total 1670 ml 2050 ml Balance -1345 ml -675 ml IV Total 325 ml 1375 ml Output Urine Total 1600 ml 2000 ml Drainage Total 70 ml 50 ml # Bowel Movements 1 100 Laboratory Tests 01/29/18 05:00: White Blood Count 19.3H, Red Blood Count 2.25L, Hemoglobin 6.5*L, Hematocrit 20.8L, Mean Corpuscular Volume 92, Mean Corpuscular Hemoglobin 29.0, Mean Corpuscular Hemoglobin Concent 31.3L, Red Cell Distribution Width 13.2, Platelet Count 230, Mean Platelet Volume 6.5, Neutrophils (%) (Auto) , Lymphocytes (%) (Auto) , Monocytes (%) (Auto) , Eosinophils (%) (Auto) , Basophils (%) (Auto) , Differential Total Cells Counted 100, Neutrophils % ( Manual) 75, Lymphocytes % (Manual) 15L, Monocytes % (Manual) 9, Eosinophils % ( Manual) 1, Basophils % (Manual) 0, Band Neutrophils 0, Platelet Estimate Adequate, Platelet Morphology Normal, Hypochromasia 1+, Sodium Level 141, Potassium Level 4.5, Chloride Level 112H, Carbon Dioxide Level 22, Anion Gap 7, Blood Urea Nitrogen 8, Creatinine 1.0, Estimat Glomerular Filtration Rate > 60, Glucose Level 75, Calcium Level 7.1L, Total Bilirubin 0.3, Aspartate Amino Transf (AST/SGOT) 15, Alanine Aminotransferase (ALT/SGPT) 32, Alkaline Phosphatase 71, Pro-B-Type Natriuretic Peptide 210H, Total Protein 5.5L, Albumin 1.3L, Globulin 4.2, Albumin/Globulin Ratio 0.3L Height (Feet): 5 Height (Inches): 3.00 Weight (Pounds): 185 General Appearance: lethargic EENT: PERRL/EOMI Neck: normal alignment Cardiovascular: tachycardia Respiratory/Chest: no respiratory distress Abdomen: tender Isaiah Noriega MD Jan 29, 2018 12:49
[2018-01-29] MEDS ORDERED: Miralax 17gm pkt ORAL PRN (13:00)
[2018-01-29] MEDS ORDERED: Tubing IV Secondary IV ONE ×2 (14:28→14:30)
[2018-01-29] MEDS ORDERED: NS 275ml ONE ×2 (14:28→14:30)
--- NOTE | 2018-01-29 14:29 | General Surgery Progress Note ---
General Surgery-Progress Note Subjective Procedure Performed planned re-exploration of abdomen, sigmoid colectomy, takedown of splenic flexure, left hemicolectomy, creation of transverse colostomy, abdominal closure Symptoms: improved Objective Last 24 Hour Vital Signs Date Time Temp Pulse Resp B/P (MAP) Pulse Ox O2 Delivery O2 Flow Rate FiO2 01/29/18 13:15 90 17 30 01/29/18 12:00 117 01/29/18 12:00 100.1 110 20 122/59 (80) 98 100.1 01/29/18 12:00 30 01/29/18 12:00 Mechanical Ventilator 01/29/18 10:51 116 22 30 01/29/18 08:45 116 26 30 01/29/18 08:00 99.8 120 20 126/66 (86) 98 99.8 01/29/18 08:00 Mechanical Ventilator 01/29/18 08:00 30 01/29/18 07:54 116 01/29/18 07:21 115 18 30 01/29/18 05:56 100.5 01/29/18 05:05 124 14 30 01/29/18 04:57 101.7 01/29/18 04:00 30 01/29/18 04:00 119 01/29/18 04:00 101.7 120 20 124/60 (81) 98 101.7 01/29/18 04:00 Mechanical Ventilator 01/29/18 03:10 116 15 30 01/29/18 01:19 109 13 30 01/29/18 00:00 Mechanical Ventilator 01/29/18 00:00 98.9 105 20 105/70 (82) 98 98.9 01/29/18 00:00 108 01/29/18 00:00 30 01/28/18 23:26 108 13 30 01/28/18 21:12 117 17 30 01/28/18 20:33 100.3 01/28/18 20:00 100.3 115 20 127/68 (87) 99 100.3 01/28/18 20:00 30 01/28/18 20:00 Mechanical Ventilator 01/28/18 20:00 116 01/28/18 18:52 107 12 30 01/28/18 17:28 115 19 30 01/28/18 16:00 30 01/28/18 16:00 110 01/28/18 16:00 Mechanical Ventilator 01/28/18 16:00 98.6 109 20 108/60 (76) 99 98.6 01/28/18 14:48 109 16 30 I&O Intake and Output 01/28/18 01/29/18 19:00 07:00 Intake Total 325 ml 1375 ml Output Total 1670 ml 2050 ml Balance -1345 ml -675 ml IV Total 325 ml 1375 ml Output Urine Total 1600 ml 2000 ml Drainage Total 70 ml 50 ml # Bowel Movements 1 100 Wound: clean Drains: alec Cardiovascular: RSR Respiratory: decreased breath sounds Abdomen: soft, distended, present bowel sounds Extremities: no cyanosis Laboratory Tests Test 01/29/18 05:00 White Blood Count 19.3 K/UL (4.8-10.8) H Red Blood Count 2.25 M/UL (4.20-5.40) L Hemoglobin 6.5 G/DL (12.0-16.0) *L Hematocrit 20.8 % (37.0-47.0) L Mean Corpuscular Volume 92 FL (80-99) Mean Corpuscular Hemoglobin 29.0 PG (27.0-31.0) Mean Corpuscular Hemoglobin Concent 31.3 G/DL (32.0-36.0) L Red Cell Distribution Width 13.2 % (11.6-14.8) Platelet Count 230 K/UL (150-450) Mean Platelet Volume 6.5 FL (6.5-10.1) Neutrophils (%) (Auto) % (45.0-75.0) Lymphocytes (%) (Auto) % (20.0-45.0) Monocytes (%) (Auto) % (1.0-10.0) Eosinophils (%) (Auto) % (0.0-3.0) Basophils (%) (Auto) % (0.0-2.0) Differential Total Cells Counted 100 Neutrophils % (Manual) 75 % (45-75) Lymphocytes % (Manual) 15 % (20-45) L Monocytes % (Manual) 9 % (1-10) Eosinophils % (Manual) 1 % (0-3) Basophils % (Manual) 0 % (0-2) Band Neutrophils 0 % (0-8) Platelet Estimate Adequate Platelet Morphology Normal Hypochromasia 1+ Sodium Level 141 MMOL/L (136-145) Potassium Level 4.5 MMOL/L (3.5-5.1) Chloride Level 112 MMOL/L (98-107) H Carbon Dioxide Level 22 MMOL/L (21-32) Anion Gap 7 mmol/L (5-15) Blood Urea Nitrogen 8 mg/dL (7-18) Creatinine 1.0 MG/DL (0.55-1.30) Estimat Glomerular Filtration Rate > 60 mL/min (>60) Glucose Level 75 MG/DL (74-106) Calcium Level 7.1 MG/DL (8.5-10.1) L Total Bilirubin 0.3 MG/DL (0.2-1.0) Aspartate Amino Transf (AST/SGOT) 15 U/L (15-37) Alanine Aminotransferase (ALT/SGPT) 32 U/L (12-78) Alkaline Phosphatase 71 U/L (46-116) Pro-B-Type Natriuretic Peptide 210 pg/mL (0-125) H Total Protein 5.5 G/DL (6.4-8.2) L Albumin 1.3 G/DL (3.4-5.0) L Globulin 4.2 g/dL Albumin/Globulin Ratio 0.3 (1.0-2.7) L Assessment Post-op Diagnosis s/p exploratory laparotomy, abdominal washout, open abdomen Plan Problems: (1) Severe sepsis Assessment & Plan: 37F severe sepsis. etiology unknown. labs as above. radiology as above. arrested on arrival in ED and currently in ICU. CXR and KUB reviewed. question of possible free air. on KUB very stool filled bowel with dilated bowels On exam with incarcerated umbilical hernia, cannot determine if chronic, acute, bowel or fat. was able to reduce at bedside fortunately. Need CT scan but unfortunately too unstable for examination Warrants diagnostic laparoscopy vs exploration but given recent events, current condition, and history would not be safe and needs resuscitation first. would unlikely tolerate surgery. needs to respond to resuscitation first. likely very dehydrated given labs. s/p ex lap with open abdomen s/p re-ex lap 48hrs after for washout, bowel resection, ostomy, abd closure recovering labs reviewed HD stability improving drains with serous output - lower drain improved ostomy viable with good output now - loose stool tolerating tube feeds improved leukocytosis. tachy. no longer bloody stool drains both serous today. no signs of intraabdominal infection. cultures reviewed. no clear identifiable etiology of leukocytosis. does not warrant re- exploration based on clinical exam only for leukocytosis. wound looks good. drains clear. ostomy functional. -monitor ostomy output. -IV fluids -IV Abx -trend labs -rock -drain care and management -packing and dressings to midline wound BID -ostomy care/bag will follow closely. unfortunately very poor prognosis. Marshall Ferguson Jan 29, 2018 14:29
[2018-01-29] MEDS ORDERED: Sterile Water Irrig 1000ml IRRIG ONE (14:30)
--- NOTE | 2018-01-29 15:37 | Cardiology Progress Note ---
Assessment/Plan Status: stable Assessment/Plan (1) Acute on chronic respiratory failure (2) Sepsis (3) Anoxic brain injury (4) Feeding by G-tube (5) Tachycardia (6) S/P exploratory laparotomy, left hemicolectomy Continue Abx No procedures indicated per GI CT abdomen reviewed Continue respiratory support G tube to suction, feels held Wound care per surgery Replete electrolytes, IV lactated ringers Stress steroids stopped due to rising WBC Albumin prn hypotension Pressors off Echo reviewed - stable, no heart failure No indication to start beta blockers for tachycardia, will need to closely monitor hemodynamics in setting of sepsis Replace magnesium/phosphorus - likely culprit of VT - no indication for ischemia evaluation at this juncture Poor prognosis Subjective Cardiovascular: Reports: no symptoms Respiratory: Reports: no symptoms Gastrointestinal/Abdominal: Reports: no symptoms Genitourinary: Reports: no symptoms Subjective Patient is resting in bed,is obtunded, trach to ventilator, has colostomy, 2 RENÉ drains, PICC line HGB 6.3, patient had 7 beats of Vtach during the night Magnesium 1.3 Objective Last 24 Hour Vital Signs Date Time Temp Pulse Resp B/P (MAP) Pulse Ox O2 Delivery O2 Flow Rate FiO2 01/29/18 14:45 102 15 30 01/29/18 13:15 90 17 30 01/29/18 12:00 117 01/29/18 12:00 100.1 110 20 122/59 (80) 98 100.1 01/29/18 12:00 30 01/29/18 12:00 Mechanical Ventilator 01/29/18 10:51 116 22 30 01/29/18 08:45 116 26 30 01/29/18 08:00 99.8 120 20 126/66 (86) 98 99.8 01/29/18 08:00 Mechanical Ventilator 01/29/18 08:00 30 01/29/18 07:54 116 01/29/18 07:21 115 18 30 01/29/18 05:56 100.5 01/29/18 05:05 124 14 30 01/29/18 04:57 101.7 01/29/18 04:00 30 01/29/18 04:00 119 01/29/18 04:00 101.7 120 20 124/60 (81) 98 101.7 01/29/18 04:00 Mechanical Ventilator 01/29/18 03:10 116 15 30 01/29/18 01:19 109 13 30 01/29/18 00:00 Mechanical Ventilator 01/29/18 00:00 98.9 105 20 105/70 (82) 98 98.9 01/29/18 00:00 108 01/29/18 00:00 30 01/28/18 23:26 108 13 30 01/28/18 21:12 117 17 30 01/28/18 20:33 100.3 01/28/18 20:00 100.3 115 20 127/68 (87) 99 100.3 01/28/18 20:00 30 01/28/18 20:00 Mechanical Ventilator 01/28/18 20:00 116 01/28/18 18:52 107 12 30 01/28/18 17:28 115 19 30 01/28/18 16:00 30 01/28/18 16:00 110 01/28/18 16:00 Mechanical Ventilator 01/28/18 16:00 98.6 109 20 108/60 (76) 99 98.6 General Appearance: on vent EENT: PERRL/EOMI Neck: non-tender Rhythm: NSR Cardiovascular: normal peripheral pulses Respiratory/Chest: chest wall non-tender Abdomen: normal bowel sounds Extremities: normal range of motion 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 Intake and Output 01/28/18 01/29/18 19:00 07:00 Intake Total 325 ml 1375 ml Output Total 1670 ml 2050 ml Balance -1345 ml -675 ml IV Total 325 ml 1375 ml Output Urine Total 1600 ml 2000 ml Drainage Total 70 ml 50 ml # Bowel Movements 1 100 Laboratory Tests Test 01/29/18 05:00 White Blood Count 19.3 K/UL (4.8-10.8) H Red Blood Count 2.25 M/UL (4.20-5.40) L Hemoglobin 6.5 G/DL (12.0-16.0) *L Hematocrit 20.8 % (37.0-47.0) L Mean Corpuscular Volume 92 FL (80-99) Mean Corpuscular Hemoglobin 29.0 PG (27.0-31.0) Mean Corpuscular Hemoglobin Concent 31.3 G/DL (32.0-36.0) L Red Cell Distribution Width 13.2 % (11.6-14.8) Platelet Count 230 K/UL (150-450) Mean Platelet Volume 6.5 FL (6.5-10.1) Neutrophils (%) (Auto) % (45.0-75.0) Lymphocytes (%) (Auto) % (20.0-45.0) Monocytes (%) (Auto) % (1.0-10.0) Eosinophils (%) (Auto) % (0.0-3.0) Basophils (%) (Auto) % (0.0-2.0) Differential Total Cells Counted 100 Neutrophils % (Manual) 75 % (45-75) Lymphocytes % (Manual) 15 % (20-45) L Monocytes % (Manual) 9 % (1-10) Eosinophils % (Manual) 1 % (0-3) Basophils % (Manual) 0 % (0-2) Band Neutrophils 0 % (0-8) Platelet Estimate Adequate Platelet Morphology Normal Hypochromasia 1+ Sodium Level 141 MMOL/L (136-145) Potassium Level 4.5 MMOL/L (3.5-5.1) Chloride Level 112 MMOL/L (98-107) H Carbon Dioxide Level 22 MMOL/L (21-32) Anion Gap 7 mmol/L (5-15) Blood Urea Nitrogen 8 mg/dL (7-18) Creatinine 1.0 MG/DL (0.55-1.30) Estimat Glomerular Filtration Rate > 60 mL/min (>60) Glucose Level 75 MG/DL (74-106) Calcium Level 7.1 MG/DL (8.5-10.1) L Total Bilirubin 0.3 MG/DL (0.2-1.0) Aspartate Amino Transf (AST/SGOT) 15 U/L (15-37) Alanine Aminotransferase (ALT/SGPT) 32 U/L (12-78) Alkaline Phosphatase 71 U/L (46-116) Pro-B-Type Natriuretic Peptide 210 pg/mL (0-125) H Total Protein 5.5 G/DL (6.4-8.2) L Albumin 1.3 G/DL (3.4-5.0) L Globulin 4.2 g/dL Albumin/Globulin Ratio 0.3 (1.0-2.7) L Rob Cote M.D. Jan 29, 2018 15:37
--- NOTE | 2018-01-29 15:52 | Diagnostic Imaging Report ---
Indication: Dyspnea Technique: XRAY Chest 1v Comparison: 01/28/2018 Findings: Tracheostomy tube, PICC line stable position. Heart size and mediastinal contours stable allowing for differences in technique/positioning. There is interval worsening of aeration with increasing opacities at the right base. No pneumothorax. Impression: Worsening of aeration with increased opacification at the right base which may related to small layering pleural effusion, atelectasis and/or pneumonia. Clinical correlation/follow-up recommended.
[2018-01-29 16:00] VITALS: BP 116/75
--- NOTE | 2018-01-29 17:29 | Infectious Diseases Prog Note ---
Assessment/Plan Assessment/Plan Assessment: Septic shock,SP ; resolved after surgical exploration- 2ry intraabdominal source- (intra-abdominal peritonitis 2ry to malpositioned gastric feeding tube, incarcerated fat containing ventral hernia and likely sigmoid volvulus) --SP Re-exploration of abdomen, Sigmoid colectomy for volvulus, Takedown of splenic flexure, Left hemicolectomy, Creation of transverse colostomy, Abdominal closure 01/21 -OR findings: no further leakage of gastric contents or feeds. No bleeding. sigmoid colon remained significantly distended despite rectal tube placement and prior decompression. Sigmoid colon easily volvulized intraoperatively. --SP Exploratory laparotomy, Abdominal washout, G-tube replacement, wound vac placment, Excision of incarcerated ventral hernia, and Reduction of sigmoid volvulus 01/19 --no perforation or gross necrosis noted upon surgical exploration --abd fluid cx anerobic Neg; aerobic P. mirabilis (I Cipro, otherwise S), Serratia liquefences (R ancef, levo; otherwise S), CONS -No obvious pathology on lungs on CXR. r/o UTI -Bcx 2/4 Diptheroids, 1/4 CONS (contaminants), Aerococcus sp (typically a urinary pathogen; S Vanco, Ceftriaxone, PNC), ?UTI (often is not isolated from urine culture given special media requirements) -u/a initial normal; repeat WBC 10-15, nit +, leuk +1 but sq cells mod ( contaminated); ucx NTD -CXR: Hyperlucent the upper abdomen. Free air not excluded. Correlate clinically. Distended bowel also noted. No acute disease within the chest. Tracheostomy -CRP impoved (now 7) -Lipase ~1k Fever/leukocytosis; Fever persistent, probably multifactorial(now with GIB , also contributing) r/o bacteremia -CXR 01/29: Worsening of aeration with increased opacification at the right base which may related to small layering pleural effusion, atelectasis and/or pneumonia leukocytosis (peak to 40s; now improving)-Supect Cdiff (increased foul smelling ostomy output, dilation of bowels, no obvious abscess on limited CT). Likely Pancreatitis (elevated Lipase) -KUB 01/27 Moderate stool in the rectal vault but overall improved compared to the last study done on January 18, 2018. -01/27 Bcx p -7/8 u/a neg Bc xNTD CDiff toxin A/B EIA neg (this test ahs low sensitivity); still suspect Cdiff -CT chest/abd/p 01/24: Very limited examination due to the lack of intravenous and oral contrast administration. Status post recent abdominal surgery with open anterior abdominal incision still noted. No abscess. Suggestion of dilatation of multiple loops of small bowel, not evaluated well on this examination. Findings may be due to postoperative ileus. Obstruction is not excludable. Left lower quadrant ostomy noted. Small bilateral pleural effusions and posterior basal atelectasis. Tracheostomy, PICC line, gastrostomy, Rock catheter is in good position. Moderate fecal retention in the rectum which is distended. Anasarca. -CXR: Question of new pneumomediastinum along the left heart margin. Question whether the tracheostomy is appropriately sealed. Basilar opacities again noted, increased on the left. Some of this could be due to differences in positioning, but question increasing pleural fluid and associated atelectasis/consolidation. Right-sided opacity is stable. ?Pneumomediastinum- not see on CT chest Elevated CPK- likely 2ry to sepsis, Dapto possibly also contributing- resolved -Dapto d/c 01/21 POssible PNA- -CXR 01/21: Airspace disease versus atelectasis at the lung bases. Correlate clinically. Probable improvement in interstitial edema since the prior study. -sp cx MDR ABC ( S Bactrim, Tigecycline, Colistin, Polymixin B), E.coli #2 ( S. 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 SNF resident Plan: -Continue Tigecycline #5 (abx d# 12) for intra-abdominal and MDR ABC in sputum coverage and synergistic for possible Cdiff -Continue IV Cefepime #2 for MDR PsA in repeat sp cx -Continue empiric PO Vancomycin #5 and IV Flagyl #5 for suspected severe CDiff -01/27 SP Micafungin #10 -7/10 SP IV Vancomycin #6, PO Bactrim #5 -01/25 SP Meropenem #8 -7/ SP Daptomycin #4 (d/c due to elevated CPK) -01/18 SP IV Vancomycin #1, Cefepime x1, Azithromycin x1, Zosyn x1 -Bcx x2 (peripheral and PICC) -f/u cx -Monitor CBC/BMP, temperatures -Trend WBC -Surgery, GI following -wound care per hospital protocol -Cdiff precautions Thank you for this consultation. Will continue to follow along with you. Discussed with RN. Subjective Allergies: Coded Allergies: No Known Allergies (Unverified , 01/18/15) Subjective Continues to be febrile, Tm 101.7 Hgb ~6 +GIB repeat Bcx p leukocytosis improving Objective Vital Signs Last 24 Hour Vital Signs Date Time Temp Pulse Resp B/P (MAP) Pulse Ox O2 Delivery O2 Flow Rate FiO2 01/29/18 14:45 102 15 30 01/29/18 13:15 90 17 30 01/29/18 12:00 117 01/29/18 12:00 100.1 110 20 122/59 (80) 98 100.1 01/29/18 12:00 30 01/29/18 12:00 Mechanical Ventilator 01/29/18 10:51 116 22 30 01/29/18 08:45 116 26 30 01/29/18 08:00 99.8 120 20 126/66 (86) 98 99.8 01/29/18 08:00 Mechanical Ventilator 01/29/18 08:00 30 01/29/18 07:54 116 01/29/18 07:21 115 18 30 01/29/18 05:56 100.5 01/29/18 05:05 124 14 30 01/29/18 04:57 101.7 01/29/18 04:00 30 01/29/18 04:00 119 01/29/18 04:00 101.7 120 20 124/60 (81) 98 101.7 01/29/18 04:00 Mechanical Ventilator 01/29/18 03:10 116 15 30 01/29/18 01:19 109 13 30 01/29/18 00:00 Mechanical Ventilator 01/29/18 00:00 98.9 105 20 105/70 (82) 98 98.9 01/29/18 00:00 108 01/29/18 00:00 30 01/28/18 23:26 108 13 30 01/28/18 21:12 117 17 30 01/28/18 20:33 100.3 01/28/18 20:00 100.3 115 20 127/68 (87) 99 100.3 01/28/18 20:00 30 01/28/18 20:00 Mechanical Ventilator 01/28/18 20:00 116 01/28/18 18:52 107 12 30 01/28/18 17:28 115 19 30 Height (Feet): 5 Height (Inches): 3.00 Weight (Pounds): 185 Objective General Appearance: chronically ill HEENT: normocephalic, bilateral eye PERRL Neck: tracheotomy Respiratory: crackles, rhonchi Cardiovascular : tachycardia Gastrointestinal: Gtube present; significant abd distention with some grimacing upon palpation; diminished to absent bowel sounds Genitourinary: rock in place Musculoskeletal: other - contracted extremities Neurologic: other - nonverbal Skin: no rash or cellulitis Laboratory Tests Test 01/29/18 05:00 White Blood Count 19.3 K/UL (4.8-10.8) H Red Blood Count 2.25 M/UL (4.20-5.40) L Hemoglobin 6.5 G/DL (12.0-16.0) *L Hematocrit 20.8 % (37.0-47.0) L Mean Corpuscular Volume 92 FL (80-99) Mean Corpuscular Hemoglobin 29.0 PG (27.0-31.0) Mean Corpuscular Hemoglobin Concent 31.3 G/DL (32.0-36.0) L Red Cell Distribution Width 13.2 % (11.6-14.8) Platelet Count 230 K/UL (150-450) Mean Platelet Volume 6.5 FL (6.5-10.1) Neutrophils (%) (Auto) % (45.0-75.0) Lymphocytes (%) (Auto) % (20.0-45.0) Monocytes (%) (Auto) % (1.0-10.0) Eosinophils (%) (Auto) % (0.0-3.0) Basophils (%) (Auto) % (0.0-2.0) Differential Total Cells Counted 100 Neutrophils % (Manual) 75 % (45-75) Lymphocytes % (Manual) 15 % (20-45) L Monocytes % (Manual) 9 % (1-10) Eosinophils % (Manual) 1 % (0-3) Basophils % (Manual) 0 % (0-2) Band Neutrophils 0 % (0-8) Platelet Estimate Adequate Platelet Morphology Normal Hypochromasia 1+ Sodium Level 141 MMOL/L (136-145) Potassium Level 4.5 MMOL/L (3.5-5.1) Chloride Level 112 MMOL/L (98-107) H Carbon Dioxide Level 22 MMOL/L (21-32) Anion Gap 7 mmol/L (5-15) Blood Urea Nitrogen 8 mg/dL (7-18) Creatinine 1.0 MG/DL (0.55-1.30) Estimat Glomerular Filtration Rate > 60 mL/min (>60) Glucose Level 75 MG/DL (74-106) Calcium Level 7.1 MG/DL (8.5-10.1) L Total Bilirubin 0.3 MG/DL (0.2-1.0) Aspartate Amino Transf (AST/SGOT) 15 U/L (15-37) Alanine Aminotransferase (ALT/SGPT) 32 U/L (12-78) Alkaline Phosphatase 71 U/L (46-116) Pro-B-Type Natriuretic Peptide 210 pg/mL (0-125) H Total Protein 5.5 G/DL (6.4-8.2) L Albumin 1.3 G/DL (3.4-5.0) L Globulin 4.2 g/dL Albumin/Globulin Ratio 0.3 (1.0-2.7) L Current Medications Medications (Trade) Dose Ordered Sig/Kel Route PRN Reason Start Time Stop Time Status Last Admin Dose Admin Acetaminophen (Tylenol) 650 mg Q4H PRN ORAL FEVER 01/28/18 05:52 02/17/18 05:51 01/29/18 04:57 Cefepime HCl 1 gm/ Dextrose 110 ml @ 220 mls/hr EVERY 12 HOURS IVPB 01/28/18 21:00 02/04/18 20:59 01/29/18 09:37 Chlorhexidine Gluconate (Neela-Hex 2%) 1 applic DAILY@2000 TOPIC 01/28/18 20:00 02/19/18 19:59 01/28/18 20:17 Dextrose (Dextrose 50%) 25 ml STAT PRN IV Hypoglycemia 01/28/18 13:00 02/27/18 12:59 Dextrose (Dextrose 50%) 50 ml STAT PRN IV Hypoglycemia 01/28/18 13:00 02/27/18 12:59 Dextrose/ Electrolytes 1,000 ml @ 75 mls/hr [id number] IV 01/28/18 14:00 02/26/18 13:59 01/29/18 03:40 Heparin Sodium (Porcine) (Heparin 5000 units/ml) 5,000 units EVERY 12 HOURS SUBQ 01/28/18 21:00 02/17/18 08:59 Levetiracetam 100 ml @ 400 mls/hr Q12HR IVPB 01/28/18 21:00 02/17/18 22:29 01/29/18 09:38 Metronidazole 100 ml @ 100 mls/hr Q8HR IVPB 01/28/18 14:00 02/02/18 10:59 01/29/18 05:49 Ondansetron HCl (Zofran) 4 mg Q6H PRN IVP Nausea & Vomiting 01/28/18 13:15 02/17/18 07:14 Pantoprazole (Protonix) 40 mg Q12HR IV 01/28/18 21:00 02/17/18 08:59 01/29/18 09:36 Phenytoin 150 mg/ Sodium Chloride 58 ml @ 114 mls/hr EVERY 12 HOURS IVPB 01/28/18 21:00 02/17/18 22:29 01/29/18 09:37 Polyethylene Glycol (Miralax) 17 gm DAILYPRN PRN ORAL Constipation 01/29/18 13:00 02/17/18 12:59 Tigecycline 50 mg/ Dextrose 110 ml @ 220 mls/hr EVERY 12 HOURS IVPB 01/28/18 21:00 02/01/18 22:59 01/29/18 09:37 Vancomycin HCl (Vancomycin) 125 mg FOUR TIMES A DAY ORAL 01/28/18 13:00 02/01/18 17:59 01/29/18 09:38 Amelia aBh M.D. Jan 29, 2018 17:29
--- NOTE | 2018-01-29 19:07 | Internal Med Progress Note ---
Subjective Date of Service: Jan 29, 2018 Physician Name Adrian Porter Attending Physician Guillermo Morel MD Current Medications Medications (Trade) Dose Ordered Sig/Kel Route PRN Reason Start Time Stop Time Status Last Admin Dose Admin Acetaminophen (Tylenol) 650 mg Q4H PRN ORAL FEVER 01/28/18 05:52 02/17/18 05:51 01/29/18 04:57 Cefepime HCl 1 gm/ Dextrose 110 ml @ 220 mls/hr EVERY 12 HOURS IVPB 01/28/18 21:00 02/04/18 20:59 01/29/18 09:37 Chlorhexidine Gluconate (Neela-Hex 2%) 1 applic DAILY@2000 TOPIC 01/28/18 20:00 02/19/18 19:59 01/28/18 20:17 Dextrose (Dextrose 50%) 25 ml STAT PRN IV Hypoglycemia 01/28/18 13:00 02/27/18 12:59 Dextrose (Dextrose 50%) 50 ml STAT PRN IV Hypoglycemia 01/28/18 13:00 02/27/18 12:59 Dextrose/ Electrolytes 1,000 ml @ 75 mls/hr [id number] IV 01/28/18 14:00 02/26/18 13:59 01/29/18 17:30 Heparin Sodium (Porcine) (Heparin 5000 units/ml) 5,000 units EVERY 12 HOURS SUBQ 01/28/18 21:00 02/17/18 08:59 Levetiracetam 100 ml @ 400 mls/hr Q12HR IVPB 01/28/18 21:00 02/17/18 22:29 01/29/18 09:38 Metronidazole 100 ml @ 100 mls/hr Q8HR IVPB 01/28/18 14:00 02/02/18 10:59 01/29/18 14:00 Ondansetron HCl (Zofran) 4 mg Q6H PRN IVP Nausea & Vomiting 01/28/18 13:15 02/17/18 07:14 Pantoprazole (Protonix) 40 mg Q12HR IV 01/28/18 21:00 02/17/18 08:59 01/29/18 09:36 Phenytoin 150 mg/ Sodium Chloride 58 ml @ 114 mls/hr EVERY 12 HOURS IVPB 01/28/18 21:00 02/17/18 22:29 01/29/18 09:37 Polyethylene Glycol (Miralax) 17 gm DAILYPRN PRN ORAL Constipation 01/29/18 13:00 02/17/18 12:59 Tigecycline 50 mg/ Dextrose 110 ml @ 220 mls/hr EVERY 12 HOURS IVPB 01/28/18 21:00 02/01/18 22:59 01/29/18 09:37 Vancomycin HCl (Vancomycin) 125 mg FOUR TIMES A DAY ORAL 01/28/18 13:00 02/01/18 17:59 01/29/18 18:14 Allergies: Coded Allergies: No Known Allergies (Unverified , 01/18/15) ROS Limited/Unobtainable: Yes Subjective 37 YO F admitted with abdominal distention. S/P cardiac arrest. S/P exploratory laparotomy 01/19/18. S/P sigmoidectomy and hemicolectomy 01/21/18. Cover for Int Med-Dr Morel. Intubated and sedated. JOSSE. Low Grade fever Objective Last Vital Signs Date Time Temp Pulse Resp B/P (MAP) Pulse Ox O2 Delivery O2 Flow Rate FiO2 01/29/18 18:52 62 17 30 01/29/18 16:00 99.2 116/75 (89) 98 99.2 01/29/18 12:00 Mechanical Ventilator 01/28/18 02:36 30.0 Laboratory Tests Test 01/29/18 05:00 White Blood Count 19.3 K/UL (4.8-10.8) H Red Blood Count 2.25 M/UL (4.20-5.40) L Hemoglobin 6.5 G/DL (12.0-16.0) *L Hematocrit 20.8 % (37.0-47.0) L Mean Corpuscular Volume 92 FL (80-99) Mean Corpuscular Hemoglobin 29.0 PG (27.0-31.0) Mean Corpuscular Hemoglobin Concent 31.3 G/DL (32.0-36.0) L Red Cell Distribution Width 13.2 % (11.6-14.8) Platelet Count 230 K/UL (150-450) Mean Platelet Volume 6.5 FL (6.5-10.1) Neutrophils (%) (Auto) % (45.0-75.0) Lymphocytes (%) (Auto) % (20.0-45.0) Monocytes (%) (Auto) % (1.0-10.0) Eosinophils (%) (Auto) % (0.0-3.0) Basophils (%) (Auto) % (0.0-2.0) Differential Total Cells Counted 100 Neutrophils % (Manual) 75 % (45-75) Lymphocytes % (Manual) 15 % (20-45) L Monocytes % (Manual) 9 % (1-10) Eosinophils % (Manual) 1 % (0-3) Basophils % (Manual) 0 % (0-2) Band Neutrophils 0 % (0-8) Platelet Estimate Adequate Platelet Morphology Normal Hypochromasia 1+ Sodium Level 141 MMOL/L (136-145) Potassium Level 4.5 MMOL/L (3.5-5.1) Chloride Level 112 MMOL/L (98-107) H Carbon Dioxide Level 22 MMOL/L (21-32) Anion Gap 7 mmol/L (5-15) Blood Urea Nitrogen 8 mg/dL (7-18) Creatinine 1.0 MG/DL (0.55-1.30) Estimat Glomerular Filtration Rate > 60 mL/min (>60) Glucose Level 75 MG/DL (74-106) Calcium Level 7.1 MG/DL (8.5-10.1) L Total Bilirubin 0.3 MG/DL (0.2-1.0) Aspartate Amino Transf (AST/SGOT) 15 U/L (15-37) Alanine Aminotransferase (ALT/SGPT) 32 U/L (12-78) Alkaline Phosphatase 71 U/L (46-116) Pro-B-Type Natriuretic Peptide 210 pg/mL (0-125) H Total Protein 5.5 G/DL (6.4-8.2) L Albumin 1.3 G/DL (3.4-5.0) L Globulin 4.2 g/dL Albumin/Globulin Ratio 0.3 (1.0-2.7) L Intake and Output 01/28/18 01/29/18 19:00 07:00 Intake Total 325 ml 1375 ml Output Total 1670 ml 2050 ml Balance -1345 ml -675 ml IV Total 325 ml 1375 ml Output Urine Total 1600 ml 2000 ml Drainage Total 70 ml 50 ml # Bowel Movements 1 100 Objective General Appearance: WD/WN, lethargic EENT: normal ENT inspection Neck: non-tender, normal alignment, supple, other - tracheostomy Cardiovascular: normal peripheral pulses, normal rate, regular rhythm, regularly irregular, no gallop/murmur, no JVD Respiratory/Chest: Mech vent; chest wall non-tender, no accessory muscle use, rhonchi - bilaterally, other - Mech Vent Abdomen: normal bowel sounds, non tender, soft, no organomegaly, no mass Extremities: normal inspection Skin: normal pigmentation, warm/dry Assessment/Plan Problem List: (1) Incarcerated ventral hernia Assessment & Plan: S/P exploratory laparotomy on 01/19/18-see surgery note. S/P sigmoidectomy, omentectomy and hemicolectomy on 01/21/18. Continue vanco, flagyl , tigecycline and micafungin per ID (2) Volvulus of sigmoid colon (3) Abdominal distension Assessment & Plan: Resolving-see surgery note. (4) Cardiac arrest Assessment & Plan: see cardiology note (5) Seizure disorder Assessment & Plan: Continue keppra and dilantin (6) Anemia (7) Hypertension Assessment & Plan: Hypotensived. Currently on pressors. (8) Encephalopathy (9) Dysphagia (10) Tachycardia (11) Severe sepsis Assessment & Plan: See ID note. (12) Anoxic brain injury (13) Respiratory failure (14) Leukocytosis Assessment & Plan: Worsening. See ID note (15) GI bleed Assessment & Plan: See GI note. Status: not improved Assessment/Plan prognosis is guarded. Adrian Porter MD Jan 29, 2018 19:07
[2018-01-29 20:00] VITALS: BP 139/77
[2018-01-29] MEDS: Dyna-Hex 2% Top Sol 2oz TOPIC SCH (21:43)
[2018-01-30] VITALS: BP 135/63
[2018-01-30 04:00] VITALS: BP 113/67
[2018-01-30 04:31] LABS: HEMATOCRIT 23.2 % (37.0-47.0); HEMOGLOBIN 7.7 G/DL (12.0-16.0); MEAN CORPUSCULAR VOLUME 92 FL (80-99); PLATELET COUNT 262 K/UL (150-450); RED BLOOD COUNT 2.53 M/UL (4.20-5.40); RED CELL DISTRIBUTION WIDTH 13.5 % (11.6-14.8); WHITE BLOOD COUNT 19.6 K/UL (4.8-10.8)
[2018-01-30 04:45] LABS: AMYLASE 93 U/L (25-115)
[2018-01-30 06:59] LABS: ALANINE AMINOTRANSFERASE 33 U/L (12-78); ALBUMIN 1.4 G/DL (3.4-5.0); ALBUMIN/GLOBULIN RATIO 0.3 (1.0-2.7); ALKALINE PHOSPHATASE 76 U/L (46-116); ANION GAP 12 mmol/L (5-15); ASPARTATE AMINO TRANSFERASE 18 U/L (15-37); BILIRUBIN,TOTAL 0.3 MG/DL (0.2-1.0); BLOOD UREA NITROGEN 7 mg/dL (7-18); CALCIUM 7.4 MG/DL (8.5-10.1); CARBON DIOXIDE 19 MMOL/L (21-32); CHLORIDE 110 MMOL/L (98-107); CREATININE 1.1 MG/DL (0.55-1.30); PHOSPHORUS 4.4 MG/DL (2.5-4.9); POTASSIUM 4.5 MMOL/L (3.5-5.1); SODIUM 140 MMOL/L (136-145)
[2018-01-30 08:00] VITALS: BP 121/67
--- NOTE | 2018-01-30 08:06 | Nephrology Progress Note ---
Assessment/Plan Assessment/Plan 1. INDIRA- resolved, - Cr 1.1 2. Hypok+/Mg- replace prn 3. Resp FL:- trached on the ventilator. Stable 4- Sepsis- abx. -s/p re-exploration of abdomen, sigmoid colectomy, takedown of splenic flexure, left hemicolectomy, creation of transverse colostomy, abdominal closure per gen surgery 5. Anemia- prn blood tx per Heme mgmt Subjective Date patient seen: Jan 30, 2018 Time patient seen: 08:05 ROS Limited/Unobtainable: Yes Allergies: Coded Allergies: No Known Allergies (Unverified , 01/18/15) Subjective Patient remains trached/vent. Objective Last 24 Hour Vital Signs Date Time Temp Pulse Resp B/P (MAP) Pulse Ox O2 Delivery O2 Flow Rate FiO2 01/30/18 06:52 94 17 30 01/30/18 05:00 98.6 01/30/18 04:49 89 12 30 01/30/18 04:17 88 01/30/18 04:00 Mechanical Ventilator 01/30/18 04:00 98.6 96 18 113/67 (82) 100 98.6 01/30/18 04:00 30 01/30/18 03:02 115 23 30 01/30/18 02:27 101.5 01/30/18 01:00 105 18 30 01/30/18 00:00 110 01/30/18 00:00 100.0 108 29 135/63 (87) 99 100.0 01/30/18 00:00 Mechanical Ventilator 01/29/18 23:08 111 22 30 01/29/18 20:45 67 18 30 01/29/18 20:00 Mechanical Ventilator 01/29/18 20:00 30 01/29/18 20:00 99.8 97 33 139/77 (97) 98 99.8 01/29/18 20:00 99 01/29/18 18:52 62 17 30 01/29/18 16:32 110 16 30 01/29/18 16:00 87 01/29/18 16:00 30 01/29/18 16:00 Mechanical Ventilator 01/29/18 16:00 99.2 110 20 116/75 (89) 98 99.2 01/29/18 14:45 102 15 30 01/29/18 13:15 90 17 30 01/29/18 12:00 117 01/29/18 12:00 100.1 110 20 122/59 (80) 98 100.1 01/29/18 12:00 30 01/29/18 12:00 Mechanical Ventilator 01/29/18 10:51 116 22 30 01/29/18 08:45 116 26 30 Intake and Output 01/29/18 01/30/18 19:00 07:00 Intake Total 828 ml 1478 ml Output Total 2620 ml 2625 ml Balance -1792 ml -1147 ml IV Total 828 ml 1478 ml Output Urine Total 2300 ml 2500 ml Stool Total 150 ml 50 ml Drainage Total 170 ml 75 ml # Bowel Movements 1 Laboratory Tests 01/30/18 04:00: White Blood Count 19.6H, Red Blood Count 2.53L, Hemoglobin 7.7L, Hematocrit 23.2L, Mean Corpuscular Volume 92, Mean Corpuscular Hemoglobin 30.3, Mean Corpuscular Hemoglobin Concent 33.0, Red Cell Distribution Width 13.5, Platelet Count 262, Mean Platelet Volume 6.3L, Neutrophils (%) (Auto) , Lymphocytes (%) ( Auto) , Monocytes (%) (Auto) , Eosinophils (%) (Auto) , Basophils (%) (Auto) , Neutrophils % (Manual) [Pending], Lymphocytes % (Manual) [Pending], Platelet Estimate [Pending], Platelet Morphology [Pending], Sodium Level 140, Potassium Level 4.5, Chloride Level 110H, Carbon Dioxide Level 19L, Anion Gap 12, Blood Urea Nitrogen 7, Creatinine 1.1, Estimat Glomerular Filtration Rate > 60, Glucose Level 78, Calcium Level 7.4L, Phosphorus Level 4.4, Magnesium Level 1.2L , Total Bilirubin 0.3, Aspartate Amino Transf (AST/SGOT) 18, Alanine Aminotransferase (ALT/SGPT) 33, Alkaline Phosphatase 76, Total Protein 5.8L, Albumin 1.4L, Globulin 4.4, Albumin/Globulin Ratio 0.3L, Amylase Level 93, Lipase 385 Height (Feet): 5 Height (Inches): 3.00 Weight (Pounds): 190 General Appearance: no apparent distress EENT: PERRL/EOMI, normal ENT inspection Neck: normal alignment Cardiovascular: normal peripheral pulses, normal rate, regular rhythm Respiratory/Chest: lungs clear Abdomen: non tender, soft Edema: no edema noted Arm (L), no edema noted Arm (R), no edema noted Leg (L), no edema noted Leg (R), no edema noted Pedal (L), no edema noted Pedal (R), no edema noted Generalized Raudel Jimenez M.D. Jan 30, 2018 08:06
[2018-01-30] MEDS: Pantoprazole Inj IV SCH ×2 (08:41→21:09)
[2018-01-30] MEDS: Vancomycin oral 125mg/2.5ml ORAL SCH ×4 (08:41→22:03)
[2018-01-30] MEDS: PHENYTOIN IVPB SCH ×3 (08:44→21:10)
[2018-01-30] MEDS: NS IVPB SCH ×3 (08:44→21:10)
[2018-01-30] MEDS: levETIRAcetam 1,000mg/NS100ml 100 ML IVPB SCH ×2 (08:55→21:10)
[2018-01-30] MEDS: Tigecycline 50 MG in D5W 110 ML IVPB SCH ×2 (08:55→22:03)
[2018-01-30] MEDS: Cefepime HCl 1 GM in D5W 110 ML IVPB SCH ×2 (08:56→22:03)
[2018-01-30] MEDS: Heparin 5000 units/ml inj SUBQ SCH ×2 (09:41→21:14)
--- NOTE | 2018-01-30 10:21 | General Progress Note ---
Assessment/Plan Status: unchanged Assessment/Plan #. Leukocytosis, likely due to infection, peritonitis, now better --> The patient with lactic acidosis. Lactic acid 7.4. --> Currently on pressors. Rule out infectious etiology. --> On broad-spectrum antibiotics and antifungals. --> Closely monitor for improvement. #. Anemia currently due to blood loss from surgery in addition to hemodilution --> cr goal is >7 --> jak2 level pending under serology as she had erythrocytosis on presentation --> anemia w/u has been reviewed, will trend daily. --> 01/29: 1 unit blood #. Coagulopathy with inr 1.6 likely due to malnutrition v dic --> obtain a mixing study #. Septic shock, closely monitor, --> on antibiotics, broad spectrum. #. Seizure disorder, currently on antiseizure medication. #. Respiratory failure, status post trach and vent. #. Dysphagia, status post gastrostomy tube. The time the note was entered does not necessarily correspond to the time the patient was seen. Subjective Date patient seen: Jan 30, 2018 ROS Limited/Unobtainable: Yes Hematologic/Lymphatic: Reports: anemia Allergies: Coded Allergies: No Known Allergies (Unverified , 01/18/15) All Systems: reviewed and negative except above Subjective No acute events. Pt s/p transfusion, Hgb improved. Objective Last 24 Hour Vital Signs Date Time Temp Pulse Resp B/P (MAP) Pulse Ox O2 Delivery O2 Flow Rate FiO2 01/30/18 08:54 76 12 30 01/30/18 06:52 94 17 30 01/30/18 05:00 98.6 01/30/18 04:49 89 12 30 01/30/18 04:17 88 01/30/18 04:00 Mechanical Ventilator 01/30/18 04:00 98.6 96 18 113/67 (82) 100 98.6 01/30/18 04:00 30 01/30/18 03:02 115 23 30 01/30/18 02:27 101.5 01/30/18 01:00 105 18 30 01/30/18 00:00 110 01/30/18 00:00 100.0 108 29 135/63 (87) 99 100.0 01/30/18 00:00 Mechanical Ventilator 01/29/18 23:08 111 22 30 01/29/18 20:45 67 18 30 01/29/18 20:00 Mechanical Ventilator 01/29/18 20:00 30 01/29/18 20:00 99.8 97 33 139/77 (97) 98 99.8 01/29/18 20:00 99 01/29/18 18:52 62 17 30 01/29/18 16:32 110 16 30 01/29/18 16:00 87 01/29/18 16:00 30 01/29/18 16:00 Mechanical Ventilator 01/29/18 16:00 99.2 110 20 116/75 (89) 98 99.2 01/29/18 14:45 102 15 30 01/29/18 13:15 90 17 30 01/29/18 12:00 117 01/29/18 12:00 100.1 110 20 122/59 (80) 98 100.1 01/29/18 12:00 30 01/29/18 12:00 Mechanical Ventilator 01/29/18 10:51 116 22 30 Intake and Output 01/29/18 01/30/18 19:00 07:00 Intake Total 828 ml 1478 ml Output Total 2620 ml 2625 ml Balance -1792 ml -1147 ml IV Total 828 ml 1478 ml Output Urine Total 2300 ml 2500 ml Stool Total 150 ml 50 ml Drainage Total 170 ml 75 ml # Bowel Movements 1 Laboratory Tests 01/30/18 04:00: White Blood Count 19.6H, Red Blood Count 2.53L, Hemoglobin 7.7L, Hematocrit 23.2L, Mean Corpuscular Volume 92, Mean Corpuscular Hemoglobin 30.3, Mean Corpuscular Hemoglobin Concent 33.0, Red Cell Distribution Width 13.5, Platelet Count 262, Mean Platelet Volume 6.3L, Neutrophils (%) (Auto) , Lymphocytes (%) ( Auto) , Monocytes (%) (Auto) , Eosinophils (%) (Auto) , Basophils (%) (Auto) , Differential Total Cells Counted 100, Neutrophils % (Manual) 80H, Lymphocytes % (Manual) 8L, Monocytes % (Manual) 10, Eosinophils % (Manual) 0, Basophils % ( Manual) 0, Band Neutrophils 2, Platelet Estimate Adequate, Platelet Morphology Normal, Clumped Platelets 1+, Anisocytosis 1+, Sodium Level 140, Potassium Level 4.5, Chloride Level 110H, Carbon Dioxide Level 19L, Anion Gap 12, Blood Urea Nitrogen 7, Creatinine 1.1, Estimat Glomerular Filtration Rate > 60, Glucose Level 78, Calcium Level 7.4L, Phosphorus Level 4.4, Magnesium Level 1.2L , Total Bilirubin 0.3, Aspartate Amino Transf (AST/SGOT) 18, Alanine Aminotransferase (ALT/SGPT) 33, Alkaline Phosphatase 76, Total Protein 5.8L, Albumin 1.4L, Globulin 4.4, Albumin/Globulin Ratio 0.3L, Amylase Level 93, Lipase 385 Height (Feet): 5 Height (Inches): 3.00 Weight (Pounds): 190 General Appearance: no apparent distress EENT: PERRL/EOMI Neck: normal alignment Cardiovascular: normal peripheral pulses Respiratory/Chest: no respiratory distress Abdomen: tender Isaiah Noriega MD Jan 30, 2018 10:21
--- NOTE | 2018-01-30 11:53 | Infectious Diseases Prog Note ---
Assessment/Plan Assessment/Plan Assessment: Septic shock,SP ; resolved after surgical exploration- 2ry intraabdominal source- (intra-abdominal peritonitis 2ry to malpositioned gastric feeding tube, incarcerated fat containing ventral hernia and likely sigmoid volvulus) --SP Re-exploration of abdomen, Sigmoid colectomy for volvulus, Takedown of splenic flexure, Left hemicolectomy, Creation of transverse colostomy, Abdominal closure 01/21 -OR findings: no further leakage of gastric contents or feeds. No bleeding. sigmoid colon remained significantly distended despite rectal tube placement and prior decompression. Sigmoid colon easily volvulized intraoperatively. --SP Exploratory laparotomy, Abdominal washout, G-tube replacement, wound vac placment, Excision of incarcerated ventral hernia, and Reduction of sigmoid volvulus 01/19 --no perforation or gross necrosis noted upon surgical exploration --abd fluid cx anerobic Neg; aerobic P. mirabilis (I Cipro, otherwise S), Serratia liquefences (R ancef, levo; otherwise S), CONS -No obvious pathology on lungs on CXR. r/o UTI -Bcx 2/4 Diptheroids, 1/4 CONS (contaminants), Aerococcus sp (typically a urinary pathogen; S Vanco, Ceftriaxone, PNC), ?UTI (often is not isolated from urine culture given special media requirements) -u/a initial normal; repeat WBC 10-15, nit +, leuk +1 but sq cells mod ( contaminated); ucx NTD -CXR: Hyperlucent the upper abdomen. Free air not excluded. Correlate clinically. Distended bowel also noted. No acute disease within the chest. Tracheostomy -CRP impoved (now 7) -Lipase ~1k Fever, Sp Leukocytosis (peak to 40s; now improving)-Supect Cdiff (increased foul smelling ostomy output, dilation of bowels, no obvious abscess on limited CT). Likely Pancreatitis (elevated Lipase) -KUB 01/27 Moderate stool in the rectal vault but overall improved compared to the last study done on January 18, 2018. -01/27 Bcx p Diarrhea CDiff toxin A/B EIA neg (this test ahs low sensitivity); still suspect Cdiff -CT chest/abd/p 01/24: Very limited examination due to the lack of intravenous and oral contrast administration. Status post recent abdominal surgery with open anterior abdominal incision still noted. No abscess. Suggestion of dilatation of multiple loops of small bowel, not evaluated well on this examination. Findings may be due to postoperative ileus. Obstruction is not excludable. Left lower quadrant ostomy noted. Small bilateral pleural effusions and posterior basal atelectasis. Tracheostomy, PICC line, gastrostomy, Gil catheter is in good position. Moderate fecal retention in the rectum which is distended. Anasarca. -CXR: Question of new pneumomediastinum along the left heart margin. Question whether the tracheostomy is appropriately sealed. Basilar opacities again noted, increased on the left. Some of this could be due to differences in positioning, but question increasing pleural fluid and associated atelectasis/consolidation. Right-sided opacity is stable. ?Pneumomediastinum- not see on CT chest Elevated CPK- resolved -Dapto d/c 01/21 POssible PNA- -CXR 01/29Worsening of aeration with increased opacification at the right base which may related to small layering pleural effusion, atelectasis and/or pneumonia. -sp cx MDR ABC ( S Bactrim, Tigecycline, Colistin, Polymixin B), E.coli #2 ( S. Ceftriaxone, Cefepime; R Zosyn); repeat 01/24 sp cx MDR ABC, MDR PsA (S Cefepime) GIB Acute blood loss anemia Bradycardia> Asystolic cardiac arrest Acute on chronic respirator failure Lactic acidosis; resolved INDIRA; improving HTN seizure disorder anoxic brain injury 2014 chronic resp failure trach/vent dependant 2014 s/p G-tube 2014 SN[facility] resident Plan: -Continue Tigecycline # 6 (abx d# 13) for intra-abdominal and MDR ABC in sputum coverage and synergistic for possible Cdiff -Continue IV Cefepime # 3 for MDR PsA in repeat sp cx -Continue empiric PO Vancomycin # 6 and IV Flagyl # 6 for suspected severe CDiff -01/27 SP Micafungin #10 -01/26 SP IV Vancomycin #6, PO Bactrim #5 -01/25 SP Meropenem #8 -01/21 SP Daptomycin #4 (d/c due to elevated CPK) -01/18 SP IV Vancomycin #1, Cefepime x1, Azithromycin x1, Zosyn x1 -Bcx x2 (peripheral and PICC) -Monitor CBC/BMP, temperatures -Trend WBC -Surgery, GI following -wound care per hospital protocol -Cdiff precautions Subjective Allergies: Coded Allergies: No Known Allergies (Unverified , 01/18/15) Subjective Afebrile Objective Vital Signs Last 24 Hour Vital Signs Date Time Temp Pulse Resp B/P (MAP) Pulse Ox O2 Delivery O2 Flow Rate FiO2 01/30/18 08:54 76 12 30 01/30/18 06:52 94 17 30 01/30/18 05:00 98.6 01/30/18 04:49 89 12 30 01/30/18 04:17 88 01/30/18 04:00 Mechanical Ventilator 01/30/18 04:00 98.6 96 18 113/67 (82) 100 98.6 01/30/18 04:00 30 01/30/18 03:02 115 23 30 01/30/18 02:27 101.5 01/30/18 01:00 105 18 30 01/30/18 00:00 110 01/30/18 00:00 100.0 108 29 135/63 (87) 99 100.0 01/30/18 00:00 Mechanical Ventilator 01/29/18 23:08 111 22 30 01/29/18 20:45 67 18 30 01/29/18 20:00 Mechanical Ventilator 01/29/18 20:00 30 01/29/18 20:00 99.8 97 33 139/77 (97) 98 99.8 01/29/18 20:00 99 01/29/18 18:52 62 17 30 01/29/18 16:32 110 16 30 01/29/18 16:00 87 01/29/18 16:00 30 01/29/18 16:00 Mechanical Ventilator 01/29/18 16:00 99.2 110 20 116/75 (89) 98 99.2 01/29/18 14:45 102 15 30 01/29/18 13:15 90 17 30 01/29/18 12:00 117 01/29/18 12:00 100.1 110 20 122/59 (80) 98 100.1 01/29/18 12:00 30 01/29/18 12:00 Mechanical Ventilator Height (Feet): 5 Height (Inches): 3.00 Weight (Pounds): 190 HEENT: anicteric Respiratory/Chest: no respiratory distress Cardiovascular: regularly irregular Abdomen: non distended Laboratory Tests Test 01/30/18 04:00 White Blood Count 19.6 K/UL (4.8-10.8) H Red Blood Count 2.53 M/UL (4.20-5.40) L Hemoglobin 7.7 G/DL (12.0-16.0) L Hematocrit 23.2 % (37.0-47.0) L Mean Corpuscular Volume 92 FL (80-99) Mean Corpuscular Hemoglobin 30.3 PG (27.0-31.0) Mean Corpuscular Hemoglobin Concent 33.0 G/DL (32.0-36.0) Red Cell Distribution Width 13.5 % (11.6-14.8) Platelet Count 262 K/UL (150-450) Mean Platelet Volume 6.3 FL (6.5-10.1) L Neutrophils (%) (Auto) % (45.0-75.0) Lymphocytes (%) (Auto) % (20.0-45.0) Monocytes (%) (Auto) % (1.0-10.0) Eosinophils (%) (Auto) % (0.0-3.0) Basophils (%) (Auto) % (0.0-2.0) Differential Total Cells Counted 100 Neutrophils % (Manual) 80 % (45-75) H Lymphocytes % (Manual) 8 % (20-45) L Monocytes % (Manual) 10 % (1-10) Eosinophils % (Manual) 0 % (0-3) Basophils % (Manual) 0 % (0-2) Band Neutrophils 2 % (0-8) Platelet Estimate Adequate Platelet Morphology Normal Clumped Platelets 1+ Anisocytosis 1+ Sodium Level 140 MMOL/L (136-145) Potassium Level 4.5 MMOL/L (3.5-5.1) Chloride Level 110 MMOL/L (98-107) H Carbon Dioxide Level 19 MMOL/L (21-32) L Anion Gap 12 mmol/L (5-15) Blood Urea Nitrogen 7 mg/dL (7-18) Creatinine 1.1 MG/DL (0.55-1.30) Estimat Glomerular Filtration Rate > 60 mL/min (>60) Glucose Level 78 MG/DL (74-106) Calcium Level 7.4 MG/DL (8.5-10.1) L Phosphorus Level 4.4 MG/DL (2.5-4.9) Magnesium Level 1.2 MG/DL (1.8-2.4) L Total Bilirubin 0.3 MG/DL (0.2-1.0) Aspartate Amino Transf (AST/SGOT) 18 U/L (15-37) Alanine Aminotransferase (ALT/SGPT) 33 U/L (12-78) Alkaline Phosphatase 76 U/L (46-116) Total Protein 5.8 G/DL (6.4-8.2) L Albumin 1.4 G/DL (3.4-5.0) L Globulin 4.4 g/dL Albumin/Globulin Ratio 0.3 (1.0-2.7) L Amylase Level 93 U/L (25-115) Lipase 385 U/L (73-393) Current Medications Medications (Trade) Dose Ordered Sig/Kel Route PRN Reason Start Time Stop Time Status Last Admin Dose Admin Acetaminophen (Tylenol) 650 mg Q4H PRN ORAL FEVER 01/28/18 05:52 02/17/18 05:51 01/30/18 02:27 Cefepime HCl 1 gm/ Dextrose 110 ml @ 220 mls/hr EVERY 12 HOURS IVPB 01/28/18 21:00 02/04/18 20:59 01/30/18 08:56 Chlorhexidine Gluconate (Neela-Hex 2%) 1 applic DAILY@2000 TOPIC 01/28/18 20:00 02/19/18 19:59 01/29/18 21:43 Dextrose (Dextrose 50%) 25 ml STAT PRN IV Hypoglycemia 01/28/18 13:00 02/27/18 12:59 Dextrose (Dextrose 50%) 50 ml STAT PRN IV Hypoglycemia 01/28/18 13:00 02/27/18 12:59 Dextrose/ Electrolytes 1,000 ml @ 75 mls/hr [id number] IV 01/28/18 14:00 02/26/18 13:59 01/30/18 11:13 Heparin Sodium (Porcine) (Heparin 5000 units/ml) 5,000 units EVERY 12 HOURS SUBQ 01/28/18 21:00 02/17/18 08:59 01/30/18 09:41 Levetiracetam 100 ml @ 400 mls/hr Q12HR IVPB 01/28/18 21:00 02/17/18 22:29 01/30/18 08:55 Metronidazole 100 ml @ 100 mls/hr Q8HR IVPB 01/28/18 14:00 02/02/18 10:59 01/30/18 05:16 Ondansetron HCl (Zofran) 4 mg Q6H PRN IVP Nausea & Vomiting 01/28/18 13:15 02/17/18 07:14 Pantoprazole (Protonix) 40 mg Q12HR IV 01/28/18 21:00 02/17/18 08:59 01/30/18 08:41 Phenytoin 150 mg/ Sodium Chloride 58 ml @ 114 mls/hr EVERY 12 HOURS IVPB 01/28/18 21:00 02/17/18 22:29 01/30/18 08:57 Polyethylene Glycol (Miralax) 17 gm DAILYPRN PRN ORAL Constipation 01/29/18 13:00 02/17/18 12:59 Tigecycline 50 mg/ Dextrose 110 ml @ 220 mls/hr EVERY 12 HOURS IVPB 01/28/18 21:00 02/01/18 22:59 01/30/18 08:55 Vancomycin HCl (Vancomycin) 125 mg FOUR TIMES A DAY ORAL 01/28/18 13:00 02/01/18 17:59 01/30/18 08:41 Jj Miller MD Jan 30, 2018 11:53
[2018-01-30 12:00] VITALS: BP 113/66
[2018-01-30] MEDS ORDERED: Tubing IV Secondary IV ONE (15:21)
[2018-01-30] MEDS ORDERED: NS 275ml ONE (15:21)
[2018-01-30] MEDS ORDERED: Sterile Water Irrig 1000ml IRRIG ONE (15:21)
[2018-01-30] MEDS ORDERED: Tubing IV Blood Pump IV ONE (15:21)
--- NOTE | 2018-01-30 15:39 | Cardiology Progress Note ---
Assessment/Plan Status: stable, not improved, unchanged Assessment/Plan (1) Acute on chronic respiratory failure (2) Sepsis (3) Anoxic brain injury (4) Feeding by G-tube (5) Tachycardia (6) S/P exploratory laparotomy, left hemicolectomy Continue Abx No procedures indicated per GI CT abdomen reviewed Continue respiratory support G tube to suction, feels held Wound care per surgery Replete electrolytes, IV lactated ringers Stress steroids stopped due to rising WBC Albumin prn hypotension Pressors off Echo reviewed - stable, no heart failure No indication to start beta blockers for tachycardia, will need to closely monitor hemodynamics in setting of sepsis Replace magnesium/phosphorus - likely culprit of VT - no indication for ischemia evaluation at this juncture Poor prognosis Subjective Cardiovascular: Reports: no symptoms Respiratory: Reports: no symptoms Gastrointestinal/Abdominal: Reports: no symptoms Genitourinary: Reports: no symptoms Subjective Patient is resting in bed,is obtunded, trach to ventilator, has colostomy, 2 RENÉ drains, PICC line No acute events,WBC still elevated, Mg low Objective Last 24 Hour Vital Signs Date Time Temp Pulse Resp B/P (MAP) Pulse Ox O2 Delivery O2 Flow Rate FiO2 01/30/18 13:05 90 12 30 01/30/18 12:00 99.0 88 20 113/66 (82) 100 99.0 01/30/18 12:00 Mechanical Ventilator 01/30/18 12:00 30 01/30/18 11:06 88 12 30 01/30/18 08:54 76 12 30 01/30/18 08:00 98.2 79 19 121/67 (85) 100 98.2 01/30/18 08:00 30 01/30/18 08:00 99 01/30/18 08:00 Mechanical Ventilator 01/30/18 06:52 94 17 30 01/30/18 05:00 98.6 01/30/18 04:49 89 12 30 01/30/18 04:17 88 01/30/18 04:00 Mechanical Ventilator 01/30/18 04:00 98.6 96 18 113/67 (82) 100 98.6 01/30/18 04:00 30 01/30/18 03:02 115 23 30 01/30/18 02:27 101.5 01/30/18 01:00 105 18 30 01/30/18 00:00 110 01/30/18 00:00 100.0 108 29 135/63 (87) 99 100.0 01/30/18 00:00 Mechanical Ventilator 01/29/18 23:08 111 22 30 01/29/18 20:45 67 18 30 01/29/18 20:00 Mechanical Ventilator 01/29/18 20:00 30 01/29/18 20:00 99.8 97 33 139/77 (97) 98 99.8 01/29/18 20:00 99 01/29/18 18:52 62 17 30 01/29/18 16:32 110 16 30 01/29/18 16:00 87 01/29/18 16:00 30 01/29/18 16:00 Mechanical Ventilator 01/29/18 16:00 99.2 110 20 116/75 (89) 98 99.2 General Appearance: no apparent distress, on vent EENT: PERRL/EOMI Neck: non-tender Rhythm: NSR Cardiovascular: normal peripheral pulses Respiratory/Chest: chest wall non-tender Abdomen: normal bowel sounds Extremities: normal range of motion Neurologic: toucher up II-XII 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 Intake and Output 01/29/18 01/30/18 19:00 07:00 Intake Total 828 ml 1478 ml Output Total 2620 ml 2625 ml Balance -1792 ml -1147 ml IV Total 828 ml 1478 ml Output Urine Total 2300 ml 2500 ml Stool Total 150 ml 50 ml Drainage Total 170 ml 75 ml # Bowel Movements 1 Laboratory Tests Test 01/30/18 04:00 White Blood Count 19.6 K/UL (4.8-10.8) H Red Blood Count 2.53 M/UL (4.20-5.40) L Hemoglobin 7.7 G/DL (12.0-16.0) L Hematocrit 23.2 % (37.0-47.0) L Mean Corpuscular Volume 92 FL (80-99) Mean Corpuscular Hemoglobin 30.3 PG (27.0-31.0) Mean Corpuscular Hemoglobin Concent 33.0 G/DL (32.0-36.0) Red Cell Distribution Width 13.5 % (11.6-14.8) Platelet Count 262 K/UL (150-450) Mean Platelet Volume 6.3 FL (6.5-10.1) L Neutrophils (%) (Auto) % (45.0-75.0) Lymphocytes (%) (Auto) % (20.0-45.0) Monocytes (%) (Auto) % (1.0-10.0) Eosinophils (%) (Auto) % (0.0-3.0) Basophils (%) (Auto) % (0.0-2.0) Differential Total Cells Counted 100 Neutrophils % (Manual) 80 % (45-75) H Lymphocytes % (Manual) 8 % (20-45) L Monocytes % (Manual) 10 % (1-10) Eosinophils % (Manual) 0 % (0-3) Basophils % (Manual) 0 % (0-2) Band Neutrophils 2 % (0-8) Platelet Estimate Adequate Platelet Morphology Normal Clumped Platelets 1+ Anisocytosis 1+ Sodium Level 140 MMOL/L (136-145) Potassium Level 4.5 MMOL/L (3.5-5.1) Chloride Level 110 MMOL/L (98-107) H Carbon Dioxide Level 19 MMOL/L (21-32) L Anion Gap 12 mmol/L (5-15) Blood Urea Nitrogen 7 mg/dL (7-18) Creatinine 1.1 MG/DL (0.55-1.30) Estimat Glomerular Filtration Rate > 60 mL/min (>60) Glucose Level 78 MG/DL (74-106) Calcium Level 7.4 MG/DL (8.5-10.1) L Phosphorus Level 4.4 MG/DL (2.5-4.9) Magnesium Level 1.2 MG/DL (1.8-2.4) L Total Bilirubin 0.3 MG/DL (0.2-1.0) Aspartate Amino Transf (AST/SGOT) 18 U/L (15-37) Alanine Aminotransferase (ALT/SGPT) 33 U/L (12-78) Alkaline Phosphatase 76 U/L (46-116) Total Protein 5.8 G/DL (6.4-8.2) L Albumin 1.4 G/DL (3.4-5.0) L Globulin 4.4 g/dL Albumin/Globulin Ratio 0.3 (1.0-2.7) L Amylase Level 93 U/L (25-115) Lipase 385 U/L (73-393) Rob Cote M.D. Jan 30, 2018 15:39
[2018-01-30 16:00] VITALS: BP 113/66
--- NOTE | 2018-01-30 17:53 | Internal Med Progress Note ---
Subjective Date of Service: Jan 30, 2018 Physician Name Adrian Porter Attending Physician Guillermo Morel MD Current Medications Medications (Trade) Dose Ordered Sig/Kel Route PRN Reason Start Time Stop Time Status Last Admin Dose Admin Acetaminophen (Tylenol) 650 mg Q4H PRN ORAL FEVER 01/28/18 05:52 02/17/18 05:51 01/30/18 02:27 Cefepime HCl 1 gm/ Dextrose 110 ml @ 220 mls/hr EVERY 12 HOURS IVPB 01/28/18 21:00 02/04/18 20:59 01/30/18 08:56 Chlorhexidine Gluconate (Neela-Hex 2%) 1 applic DAILY@2000 TOPIC 01/28/18 20:00 02/19/18 19:59 01/29/18 21:43 Dextrose (Dextrose 50%) 25 ml STAT PRN IV Hypoglycemia 01/28/18 13:00 02/27/18 12:59 Dextrose (Dextrose 50%) 50 ml STAT PRN IV Hypoglycemia 01/28/18 13:00 02/27/18 12:59 Dextrose/ Electrolytes 1,000 ml @ 75 mls/hr [id number] IV 01/28/18 14:00 02/26/18 13:59 01/30/18 11:13 Heparin Sodium (Porcine) (Heparin 5000 units/ml) 5,000 units EVERY 12 HOURS SUBQ 01/28/18 21:00 02/17/18 08:59 01/30/18 09:41 Levetiracetam 100 ml @ 400 mls/hr Q12HR IVPB 01/28/18 21:00 02/17/18 22:29 01/30/18 08:55 Metronidazole 100 ml @ 100 mls/hr Q8HR IVPB 01/28/18 14:00 02/02/18 10:59 01/30/18 15:10 Ondansetron HCl (Zofran) 4 mg Q6H PRN IVP Nausea & Vomiting 01/28/18 13:15 02/17/18 07:14 Pantoprazole (Protonix) 40 mg Q12HR IV 01/28/18 21:00 02/17/18 08:59 01/30/18 08:41 Phenytoin 150 mg/ Sodium Chloride 58 ml @ 114 mls/hr EVERY 12 HOURS IVPB 01/28/18 21:00 02/17/18 22:29 01/30/18 08:57 Polyethylene Glycol (Miralax) 17 gm DAILYPRN PRN ORAL Constipation 01/29/18 13:00 02/17/18 12:59 Tigecycline 50 mg/ Dextrose 110 ml @ 220 mls/hr EVERY 12 HOURS IVPB 01/28/18 21:00 02/01/18 22:59 01/30/18 08:55 Vancomycin HCl (Vancomycin) 125 mg FOUR TIMES A DAY ORAL 01/28/18 13:00 02/01/18 17:59 01/30/18 15:10 Allergies: Coded Allergies: No Known Allergies (Unverified , 01/18/15) ROS Limited/Unobtainable: Yes Subjective 37 YO F admitted with abdominal distention. S/P cardiac arrest. S/P exploratory laparotomy 01/19/18. S/P sigmoidectomy and hemicolectomy 01/21/18. Cover for Int Med-Dr Morel. Intubated and sedated. JOSSE. Low Grade fever Objective Last Vital Signs Date Time Temp Pulse Resp B/P (MAP) Pulse Ox O2 Delivery O2 Flow Rate FiO2 01/30/18 16:00 30 01/30/18 16:00 103 01/30/18 16:00 99.1 20 113/66 (82) 100 99.1 01/30/18 16:00 Mechanical Ventilator 01/28/18 02:36 30.0 Laboratory Tests Test 01/30/18 04:00 White Blood Count 19.6 K/UL (4.8-10.8) H Red Blood Count 2.53 M/UL (4.20-5.40) L Hemoglobin 7.7 G/DL (12.0-16.0) L Hematocrit 23.2 % (37.0-47.0) L Mean Corpuscular Volume 92 FL (80-99) Mean Corpuscular Hemoglobin 30.3 PG (27.0-31.0) Mean Corpuscular Hemoglobin Concent 33.0 G/DL (32.0-36.0) Red Cell Distribution Width 13.5 % (11.6-14.8) Platelet Count 262 K/UL (150-450) Mean Platelet Volume 6.3 FL (6.5-10.1) L Neutrophils (%) (Auto) % (45.0-75.0) Lymphocytes (%) (Auto) % (20.0-45.0) Monocytes (%) (Auto) % (1.0-10.0) Eosinophils (%) (Auto) % (0.0-3.0) Basophils (%) (Auto) % (0.0-2.0) Differential Total Cells Counted 100 Neutrophils % (Manual) 80 % (45-75) H Lymphocytes % (Manual) 8 % (20-45) L Monocytes % (Manual) 10 % (1-10) Eosinophils % (Manual) 0 % (0-3) Basophils % (Manual) 0 % (0-2) Band Neutrophils 2 % (0-8) Platelet Estimate Adequate Platelet Morphology Normal Clumped Platelets 1+ Anisocytosis 1+ Sodium Level 140 MMOL/L (136-145) Potassium Level 4.5 MMOL/L (3.5-5.1) Chloride Level 110 MMOL/L (98-107) H Carbon Dioxide Level 19 MMOL/L (21-32) L Anion Gap 12 mmol/L (5-15) Blood Urea Nitrogen 7 mg/dL (7-18) Creatinine 1.1 MG/DL (0.55-1.30) Estimat Glomerular Filtration Rate > 60 mL/min (>60) Glucose Level 78 MG/DL (74-106) Calcium Level 7.4 MG/DL (8.5-10.1) L Phosphorus Level 4.4 MG/DL (2.5-4.9) Magnesium Level 1.2 MG/DL (1.8-2.4) L Total Bilirubin 0.3 MG/DL (0.2-1.0) Aspartate Amino Transf (AST/SGOT) 18 U/L (15-37) Alanine Aminotransferase (ALT/SGPT) 33 U/L (12-78) Alkaline Phosphatase 76 U/L (46-116) Total Protein 5.8 G/DL (6.4-8.2) L Albumin 1.4 G/DL (3.4-5.0) L Globulin 4.4 g/dL Albumin/Globulin Ratio 0.3 (1.0-2.7) L Amylase Level 93 U/L (25-115) Lipase 385 U/L (73-393) Intake and Output 01/29/18 01/30/18 19:00 07:00 Intake Total 828 ml 1478 ml Output Total 2620 ml 2625 ml Balance -1792 ml -1147 ml IV Total 828 ml 1478 ml Output Urine Total 2300 ml 2500 ml Stool Total 150 ml 50 ml Drainage Total 170 ml 75 ml # Bowel Movements 1 Objective General Appearance: WD/WN, lethargic EENT: normal ENT inspection Neck: non-tender, normal alignment, supple, other - tracheostomy Cardiovascular: normal peripheral pulses, normal rate, regular rhythm, regularly irregular, no gallop/murmur, no JVD Respiratory/Chest: Mech vent; chest wall non-tender, no accessory muscle use, rhonchi - bilaterally, other - Mech Vent Abdomen: normal bowel sounds, non tender, soft, no organomegaly, no mass Extremities: normal inspection Skin: normal pigmentation, warm/dry Assessment/Plan Problem List: (1) Incarcerated ventral hernia Assessment & Plan: S/P exploratory laparotomy on 01/19/18-see surgery note. S/P sigmoidectomy, omentectomy and hemicolectomy on 01/21/18. Continue vanco, flagyl , tigecycline and micafungin per ID (2) Volvulus of sigmoid colon (3) Abdominal distension Assessment & Plan: Resolving-see surgery note. (4) Cardiac arrest Assessment & Plan: see cardiology note (5) Seizure disorder Assessment & Plan: Continue keppra and dilantin (6) Anemia (7) Hypertension Assessment & Plan: Hypotensived. Currently on pressors. (8) Encephalopathy (9) Dysphagia (10) Tachycardia (11) Severe sepsis Assessment & Plan: See ID note. (12) Anoxic brain injury (13) Respiratory failure (14) Leukocytosis Assessment & Plan: Worsening. See ID note (15) GI bleed Assessment & Plan: See GI note. Status: not improved Assessment/Plan prognosis is guarded. Adrian Porter MD Jan 30, 2018 17:53
[2018-01-30 20:00] VITALS: BP 112/54
[2018-01-30] MEDS: Dyna-Hex 2% Top Sol 2oz TOPIC SCH (21:15)
[2018-01-31] VITALS: BP 113/57
[2018-01-31 04:00] VITALS: BP 128/78
[2018-01-31 05:58] LABS: ANION GAP 3 mmol/L (5-15); BLOOD UREA NITROGEN 5 mg/dL (7-18); CALCIUM 7.1 MG/DL (8.5-10.1); CARBON DIOXIDE 22 MMOL/L (21-32); CHLORIDE 115 MMOL/L (98-107); SODIUM 141 MMOL/L (136-145)
[2018-01-31 06:02] LABS: HEMATOCRIT 23.8 % (37.0-47.0); HEMOGLOBIN 7.7 G/DL (12.0-16.0); MEAN CORPUSCULAR VOLUME 93 FL (80-99); PLATELET COUNT 302 K/UL (150-450); RED BLOOD COUNT 2.56 M/UL (4.20-5.40); RED CELL DISTRIBUTION WIDTH 13.2 % (11.6-14.8); WHITE BLOOD COUNT 18.7 K/UL (4.8-10.8)
[2018-01-31 07:01] LABS: HEMATOCRIT 27.3 % (37.0-47.0); HEMOGLOBIN 8.6 G/DL (12.0-16.0); MEAN CORPUSCULAR VOLUME 93 FL (80-99); PLATELET COUNT 326 K/UL (150-450); RED BLOOD COUNT 2.94 M/UL (4.20-5.40); RED CELL DISTRIBUTION WIDTH 13.6 % (11.6-14.8); WHITE BLOOD COUNT 20.1 K/UL (4.8-10.8)
[2018-01-31 07:06] LABS: ANION GAP 9 mmol/L (5-15); BLOOD UREA NITROGEN 6 mg/dL (7-18); CALCIUM 7.8 MG/DL (8.5-10.1); CARBON DIOXIDE 21 MMOL/L (21-32); CHLORIDE 109 MMOL/L (98-107); POTASSIUM 5.2 MMOL/L (3.5-5.1); SODIUM 139 MMOL/L (136-145)
[2018-01-31 07:11] LABS: ALANINE AMINOTRANSFERASE 29 U/L (12-78); ALBUMIN 1.7 G/DL (3.4-5.0); ALBUMIN/GLOBULIN RATIO 0.3 (1.0-2.7); ALKALINE PHOSPHATASE 85 U/L (46-116); ASPARTATE AMINO TRANSFERASE 20 U/L (15-37); BILIRUBIN,TOTAL 0.3 MG/DL (0.2-1.0)
[2018-01-31 08:00] VITALS: BP 130/94
--- NOTE | 2018-01-31 08:45 | Nephrology Progress Note ---
Assessment/Plan Assessment/Plan 1. INDIRA- resolved, 2. HyperK+ DCed IVFs with K+. Recheck peripheral stick at 11 am 3. Resp FL:- trached on the ventilator. Stable 4- Sepsis- abx. -s/p re-exploration of abdomen, sigmoid colectomy, takedown of splenic flexure, left hemicolectomy, creation of transverse colostomy, abdominal closure per gen surgery 5. Anemia- prn blood tx per Subjective Date patient seen: Jan 31, 2018 Time patient seen: 08:38 ROS Limited/Unobtainable: Yes Allergies: Coded Allergies: No Known Allergies (Unverified , 01/18/15) Subjective Patient remains trached/vent and no change Objective Last 24 Hour Vital Signs Date Time Temp Pulse Resp B/P (MAP) Pulse Ox O2 Delivery O2 Flow Rate FiO2 01/31/18 07:06 99 23 30 01/31/18 05:00 106 21 30 01/31/18 04:00 Mechanical Ventilator 01/31/18 04:00 30 01/31/18 04:00 98.4 93 20 128/78 (95) 100 98.4 01/31/18 04:00 89 01/31/18 03:25 110 21 30 01/31/18 01:28 103 18 30 01/31/18 00:00 98.2 93 16 113/57 (75) 96 98.2 01/31/18 00:00 30 01/31/18 00:00 71 01/31/18 00:00 Mechanical Ventilator 01/30/18 23:30 105 16 30 01/30/18 21:17 92 17 30 01/30/18 20:00 98.2 94 18 112/54 (73) 100 98.2 01/30/18 20:00 82 01/30/18 20:00 Mechanical Ventilator 01/30/18 20:00 30 01/30/18 18:50 103 19 30 01/30/18 17:03 100 12 30 01/30/18 16:00 30 01/30/18 16:00 103 01/30/18 16:00 99.1 88 20 113/66 (82) 100 99.1 01/30/18 16:00 Mechanical Ventilator 01/30/18 14:57 96 15 30 01/30/18 13:05 90 12 30 01/30/18 12:00 99.0 88 20 113/66 (82) 100 99.0 01/30/18 12:00 93 01/30/18 12:00 Mechanical Ventilator 01/30/18 12:00 30 01/30/18 11:06 88 12 30 01/30/18 08:54 76 12 30 Intake and Output 01/30/18 01/31/18 19:00 07:00 Intake Total 1060 ml 2046 ml Output Total 2790 ml 2365 ml Balance -1730 ml -319 ml IV Total 1060 ml 2046 ml Output Urine Total 2550 ml 2200 ml Stool Total 140 ml 150 ml Drainage Total 100 ml 15 ml # Bowel Movements 2 Laboratory Tests 01/31/18 04:00: White Blood Count 18.7H, Red Blood Count 2.56L, Hemoglobin 7.7L, Hematocrit 23.8L, Mean Corpuscular Volume 93, Mean Corpuscular Hemoglobin 30.0, Mean Corpuscular Hemoglobin Concent 32.2, Red Cell Distribution Width 13.2, Platelet Count 302, Mean Platelet Volume 6.1L, Neutrophils (%) (Auto) , Lymphocytes (%) ( Auto) , Monocytes (%) (Auto) , Eosinophils (%) (Auto) , Basophils (%) (Auto) , Differential Total Cells Counted 100, Neutrophils % (Manual) 73, Lymphocytes % ( Manual) 11L, Monocytes % (Manual) 15H, Eosinophils % (Manual) 1, Basophils % ( Manual) 0, Band Neutrophils 0, Platelet Estimate Adequate, Platelet Morphology Normal, Hypochromasia 1+, Sodium Level 141, Potassium Level 6.0*H, Chloride Level 115H, Carbon Dioxide Level 22, Anion Gap 3L, Blood Urea Nitrogen 5L, Creatinine 1.0, Estimat Glomerular Filtration Rate > 60, Glucose Level 363#H, Calcium Level 7.1L 01/31/18 06:45: White Blood Count 20.1H, Red Blood Count 2.94L, Hemoglobin 8.6L, Hematocrit 27.3L, Mean Corpuscular Volume 93, Mean Corpuscular Hemoglobin 29.4, Mean Corpuscular Hemoglobin Concent 31.6L, Red Cell Distribution Width 13.6, Platelet Count 326, Mean Platelet Volume 6.2L, Neutrophils (%) (Auto) , Lymphocytes (%) (Auto) , Monocytes (%) (Auto) , Eosinophils (%) (Auto) , Basophils (%) (Auto) , Neutrophils % (Manual) [Pending], Lymphocytes % (Manual) [Pending], Platelet Estimate [Pending], Platelet Morphology [Pending], Sodium Level 139, Potassium Level 5.2H, Chloride Level 109H, Carbon Dioxide Level 21, Anion Gap 9, Blood Urea Nitrogen 6L, Creatinine 1.0, Estimat Glomerular Filtration Rate > 60, Glucose Level 83#, Calcium Level 7.8L, Total Bilirubin 0.3 , Aspartate Amino Transf (AST/SGOT) 20, Alanine Aminotransferase (ALT/SGPT) 29, Alkaline Phosphatase 85, Total Protein 7.0, Albumin 1.7L, Globulin 5.3, Albumin/ Globulin Ratio 0.3L Height (Feet): 5 Height (Inches): 3.00 Weight (Pounds): 188 General Appearance: no apparent distress, lethargic EENT: PERRL/EOMI Neck: non-tender Cardiovascular: normal rate, regular rhythm Respiratory/Chest: rhonchi - bilaterally Abdomen: normal bowel sounds, non tender, soft Edema: no edema noted Arm (L), no edema noted Arm (R), no edema noted Leg (L), no edema noted Leg (R), no edema noted Pedal (L), no edema noted Pedal (R), no edema noted Generalized Raudel Jimenez M.D. Jan 31, 2018 08:45
[2018-01-31] MEDS: Tigecycline 50 MG in D5W 110 ML IVPB SCH ×2 (08:51→20:52)
[2018-01-31] MEDS: levETIRAcetam 1,000mg/NS100ml 100 ML IVPB SCH ×2 (08:51→21:58)
[2018-01-31] MEDS: Cefepime HCl 1 GM in D5W 110 ML IVPB SCH ×2 (08:52→20:52)
[2018-01-31] MEDS: D5NS 1,000 ML IV SCH ×2 (09:00→21:58)
[2018-01-31] MEDS: NS IVPB SCH ×2 (11:02→21:19)
[2018-01-31] MEDS: Pantoprazole Inj IV SCH ×2 (11:02→20:52)
[2018-01-31] MEDS: PHENYTOIN IVPB SCH ×2 (11:02→21:19)
[2018-01-31] MEDS: Vancomycin oral 125mg/2.5ml ORAL SCH ×4 (11:12→20:56)
[2018-01-31] MEDS: Heparin 5000 units/ml inj SUBQ SCH ×2 (11:24→20:53)
[2018-01-31 12:00] VITALS: BP 100/62
--- NOTE | 2018-01-31 12:41 | General Surgery Progress Note ---
General Surgery-Progress Note Subjective Procedure Performed planned re-exploration of abdomen, sigmoid colectomy, takedown of splenic flexure, left hemicolectomy, creation of transverse colostomy, abdominal closure Additional Comments no acute events. leukocytosis. wound healing. drain output decreasing Objective Last 24 Hour Vital Signs Date Time Temp Pulse Resp B/P (MAP) Pulse Ox O2 Delivery O2 Flow Rate FiO2 01/31/18 10:53 88 14 30 01/31/18 09:29 71 17 30 01/31/18 07:06 99 23 30 01/31/18 05:00 106 21 30 01/31/18 04:00 Mechanical Ventilator 01/31/18 04:00 30 01/31/18 04:00 98.4 93 20 128/78 (95) 100 98.4 01/31/18 04:00 89 01/31/18 03:25 110 21 30 01/31/18 01:28 103 18 30 01/31/18 00:00 98.2 93 16 113/57 (75) 96 98.2 01/31/18 00:00 30 01/31/18 00:00 71 01/31/18 00:00 Mechanical Ventilator 01/30/18 23:30 105 16 30 01/30/18 21:17 92 17 30 01/30/18 20:00 98.2 94 18 112/54 (73) 100 98.2 01/30/18 20:00 82 01/30/18 20:00 Mechanical Ventilator 01/30/18 20:00 30 01/30/18 18:50 103 19 30 01/30/18 17:03 100 12 30 01/30/18 16:00 30 01/30/18 16:00 103 01/30/18 16:00 99.1 88 20 113/66 (82) 100 99.1 01/30/18 16:00 Mechanical Ventilator 01/30/18 14:57 96 15 30 01/30/18 13:05 90 12 30 I&O Intake and Output 01/30/18 01/31/18 19:00 07:00 Intake Total 1060 ml 2046 ml Output Total 2790 ml 2365 ml Balance -1730 ml -319 ml IV Total 1060 ml 2046 ml Output Urine Total 2550 ml 2200 ml Stool Total 140 ml 150 ml Drainage Total 100 ml 15 ml # Bowel Movements 2 Dressing: saturated Wound: clean Drains: alec Cardiovascular: RSR Respiratory: clear Abdomen: soft, present bowel sounds, other - ostomy viable and functional Extremities: no cyanosis Laboratory Tests Test 01/31/18 04:00 01/31/18 06:45 01/31/18 10:10 White Blood Count 18.7 K/UL (4.8-10.8) H 20.1 K/UL (4.8-10.8) H Red Blood Count 2.56 M/UL (4.20-5.40) L 2.94 M/UL (4.20-5.40) L Hemoglobin 7.7 G/DL (12.0-16.0) L 8.6 G/DL (12.0-16.0) L Hematocrit 23.8 % (37.0-47.0) L 27.3 % (37.0-47.0) L Mean Corpuscular Volume 93 FL (80-99) 93 FL (80-99) Mean Corpuscular Hemoglobin 30.0 PG (27.0-31.0) 29.4 PG (27.0-31.0) Mean Corpuscular Hemoglobin Concent 32.2 G/DL (32.0-36.0) 31.6 G/DL (32.0-36.0) L Red Cell Distribution Width 13.2 % (11.6-14.8) 13.6 % (11.6-14.8) Platelet Count 302 K/UL (150-450) 326 K/UL (150-450) Mean Platelet Volume 6.1 FL (6.5-10.1) L 6.2 FL (6.5-10.1) L Neutrophils (%) (Auto) % (45.0-75.0) % (45.0-75.0) Lymphocytes (%) (Auto) % (20.0-45.0) % (20.0-45.0) Monocytes (%) (Auto) % (1.0-10.0) % (1.0-10.0) Eosinophils (%) (Auto) % (0.0-3.0) % (0.0-3.0) Basophils (%) (Auto) % (0.0-2.0) % (0.0-2.0) Differential Total Cells Counted 100 100 Neutrophils % (Manual) 73 % (45-75) 84 % (45-75) H Lymphocytes % (Manual) 11 % (20-45) L 8 % (20-45) L Monocytes % (Manual) 15 % (1-10) H 7 % (1-10) Eosinophils % (Manual) 1 % (0-3) 0 % (0-3) Basophils % (Manual) 0 % (0-2) 0 % (0-2) Band Neutrophils 0 % (0-8) 1 % (0-8) Platelet Estimate Adequate Adequate Platelet Morphology Normal Normal Hypochromasia 1+ 1+ Sodium Level 141 MMOL/L (136-145) 139 MMOL/L (136-145) Potassium Level 6.0 MMOL/L (3.5-5.1) *H 5.2 MMOL/L (3.5-5.1) H 5.5 MMOL/L (3.5-5.1) H Chloride Level 115 MMOL/L (98-107) H 109 MMOL/L (98-107) H Carbon Dioxide Level 22 MMOL/L (21-32) 21 MMOL/L (21-32) Anion Gap 3 mmol/L (5-15) L 9 mmol/L (5-15) Blood Urea Nitrogen 5 mg/dL (7-18) L 6 mg/dL (7-18) L Creatinine 1.0 MG/DL (0.55-1.30) 1.0 MG/DL (0.55-1.30) Estimat Glomerular Filtration Rate > 60 mL/min (>60) > 60 mL/min (>60) Glucose Level 363 MG/DL (74-106) #H 83 MG/DL (74-106) # Calcium Level 7.1 MG/DL (8.5-10.1) L 7.8 MG/DL (8.5-10.1) L Total Bilirubin 0.3 MG/DL (0.2-1.0) Aspartate Amino Transf (AST/SGOT) 20 U/L (15-37) Alanine Aminotransferase (ALT/SGPT) 29 U/L (12-78) Alkaline Phosphatase 85 U/L (46-116) Total Protein 7.0 G/DL (6.4-8.2) Albumin 1.7 G/DL (3.4-5.0) L Globulin 5.3 g/dL Albumin/Globulin Ratio 0.3 (1.0-2.7) L Assessment Post-op Diagnosis s/p exploratory laparotomy, abdominal washout, open abdomen Plan Problems: (1) Severe sepsis Assessment & Plan: 37F severe sepsis. etiology unknown. labs as above. radiology as above. arrested on arrival in ED and currently in ICU. CXR and KUB reviewed. question of possible free air. on KUB very stool filled bowel with dilated bowels On exam with incarcerated umbilical hernia, cannot determine if chronic, acute, bowel or fat. was able to reduce at bedside fortunately. Need CT scan but unfortunately too unstable for examination Warrants diagnostic laparoscopy vs exploration but given recent events, current condition, and history would not be safe and needs resuscitation first. would unlikely tolerate surgery. needs to respond to resuscitation first. likely very dehydrated given labs. s/p ex lap with open abdomen s/p re-ex lap 48hrs after for washout, bowel resection, ostomy, abd closure recovering labs reviewed HD stability improving drains with serous output - lower drain improved ostomy viable with good output now - loose stool tolerating tube feeds leukocytosis. tachy. no longer bloody stool drains both serous no signs of intraabdominal infection. cultures reviewed. no clear identifiable etiology of leukocytosis. does not warrant re- exploration based on clinical exam only for leukocytosis. wound looks good. drains clear. ostomy functional. -monitor ostomy output. -IV fluids/feeds -IV Abx -trend labs -rock -drain care and management - will plan to remove drains this week -packing and dressings to midline wound BID -ostomy care/bag will follow closely. unfortunately very poor prognosis. Marshall Ferguson Jan 31, 2018 12:41
--- NOTE | 2018-01-31 15:46 | Cardiology Progress Note ---
Assessment/Plan Status: stable Assessment/Plan (1) Acute on chronic respiratory failure (2) Sepsis (3) Anoxic brain injury (4) Feeding by G-tube (5) Tachycardia (6) S/P exploratory laparotomy, left hemicolectomy Continue Abx No procedures indicated per GI CT abdomen reviewed Continue respiratory ventilator support G tube care Wound care per surgery Replete electrolytes, IV lactated ringers Stress steroids stopped due to rising WBC Albumin prn hypotension Pressors off Echo reviewed - stable, no heart failure No indication to start beta blockers for tachycardia, will need to closely monitor hemodynamics in setting of sepsis Replace magnesium/phosphorus - likely culprit of VT - no indication for ischemia evaluation at this juncture Monitor for signs of hyperkalemia, give bicarb, insulin, duoneb, kayexelate Poor prognosis Subjective Cardiovascular: Reports: no symptoms Respiratory: Reports: no symptoms Gastrointestinal/Abdominal: Reports: no symptoms Genitourinary: Reports: no symptoms Subjective pt. in bed obtunded, no s/s of acute cardiac or respiratory distress noted, pt. appears to be tolerating current vent settings well- AC 12, TV 600, Fio2 of 30% and peep of 5, G Tube intact and patent, Colostomy back intact, RENÉ 1 and JP2 intact and draining to gravity, Gil intact and draining to gravity, running D5NS +20KCL at 75cc/hr K noted to be elevated today Objective Last 24 Hour Vital Signs Date Time Temp Pulse Resp B/P (MAP) Pulse Ox O2 Delivery O2 Flow Rate FiO2 01/31/18 12:53 93 16 30 01/31/18 12:00 95 01/31/18 12:00 98.2 93 20 100/62 (75) 100 98.2 01/31/18 12:00 30 01/31/18 12:00 Mechanical Ventilator 01/31/18 10:53 88 14 30 01/31/18 09:29 71 17 30 01/31/18 08:00 Mechanical Ventilator 01/31/18 08:00 98.9 90 17 130/94 (106) 100 98.9 01/31/18 08:00 90 01/31/18 08:00 30 01/31/18 07:06 99 23 30 01/31/18 05:00 106 21 30 01/31/18 04:00 Mechanical Ventilator 01/31/18 04:00 30 01/31/18 04:00 98.4 93 20 128/78 (95) 100 98.4 01/31/18 04:00 89 01/31/18 03:25 110 21 30 01/31/18 01:28 103 18 30 01/31/18 00:00 98.2 93 16 113/57 (75) 96 98.2 01/31/18 00:00 30 01/31/18 00:00 71 01/31/18 00:00 Mechanical Ventilator 01/30/18 23:30 105 16 30 01/30/18 21:17 92 17 30 01/30/18 20:00 98.2 94 18 112/54 (73) 100 98.2 01/30/18 20:00 82 01/30/18 20:00 Mechanical Ventilator 01/30/18 20:00 30 01/30/18 18:50 103 19 30 01/30/18 17:03 100 12 30 01/30/18 16:00 30 01/30/18 16:00 103 01/30/18 16:00 99.1 88 20 113/66 (82) 100 99.1 01/30/18 16:00 Mechanical Ventilator General Appearance: on vent EENT: PERRL/EOMI Neck: non-tender Rhythm: NSR Cardiovascular: normal peripheral pulses Respiratory/Chest: chest wall non-tender Abdomen: normal bowel sounds Extremities: normal range of motion Neurologic: battery container tester II-XII 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 Intake and Output 01/30/18 01/31/18 19:00 07:00 Intake Total 1060 ml 2046 ml Output Total 2790 ml 2365 ml Balance -1730 ml -319 ml IV Total 1060 ml 2046 ml Output Urine Total 2550 ml 2200 ml Stool Total 140 ml 150 ml Drainage Total 100 ml 15 ml # Bowel Movements 2 Laboratory Tests Test 01/31/18 04:00 01/31/18 06:45 01/31/18 10:10 White Blood Count 18.7 K/UL (4.8-10.8) H 20.1 K/UL (4.8-10.8) H Red Blood Count 2.56 M/UL (4.20-5.40) L 2.94 M/UL (4.20-5.40) L Hemoglobin 7.7 G/DL (12.0-16.0) L 8.6 G/DL (12.0-16.0) L Hematocrit 23.8 % (37.0-47.0) L 27.3 % (37.0-47.0) L Mean Corpuscular Volume 93 FL (80-99) 93 FL (80-99) Mean Corpuscular Hemoglobin 30.0 PG (27.0-31.0) 29.4 PG (27.0-31.0) Mean Corpuscular Hemoglobin Concent 32.2 G/DL (32.0-36.0) 31.6 G/DL (32.0-36.0) L Red Cell Distribution Width 13.2 % (11.6-14.8) 13.6 % (11.6-14.8) Platelet Count 302 K/UL (150-450) 326 K/UL (150-450) Mean Platelet Volume 6.1 FL (6.5-10.1) L 6.2 FL (6.5-10.1) L Neutrophils (%) (Auto) % (45.0-75.0) % (45.0-75.0) Lymphocytes (%) (Auto) % (20.0-45.0) % (20.0-45.0) Monocytes (%) (Auto) % (1.0-10.0) % (1.0-10.0) Eosinophils (%) (Auto) % (0.0-3.0) % (0.0-3.0) Basophils (%) (Auto) % (0.0-2.0) % (0.0-2.0) Differential Total Cells Counted 100 100 Neutrophils % (Manual) 73 % (45-75) 84 % (45-75) H Lymphocytes % (Manual) 11 % (20-45) L 8 % (20-45) L Monocytes % (Manual) 15 % (1-10) H 7 % (1-10) Eosinophils % (Manual) 1 % (0-3) 0 % (0-3) Basophils % (Manual) 0 % (0-2) 0 % (0-2) Band Neutrophils 0 % (0-8) 1 % (0-8) Platelet Estimate Adequate Adequate Platelet Morphology Normal Normal Hypochromasia 1+ 1+ Sodium Level 141 MMOL/L (136-145) 139 MMOL/L (136-145) Potassium Level 6.0 MMOL/L (3.5-5.1) *H 5.2 MMOL/L (3.5-5.1) H 5.5 MMOL/L (3.5-5.1) H Chloride Level 115 MMOL/L (98-107) H 109 MMOL/L (98-107) H Carbon Dioxide Level 22 MMOL/L (21-32) 21 MMOL/L (21-32) Anion Gap 3 mmol/L (5-15) L 9 mmol/L (5-15) Blood Urea Nitrogen 5 mg/dL (7-18) L 6 mg/dL (7-18) L Creatinine 1.0 MG/DL (0.55-1.30) 1.0 MG/DL (0.55-1.30) Estimat Glomerular Filtration Rate > 60 mL/min (>60) > 60 mL/min (>60) Glucose Level 363 MG/DL (74-106) #H 83 MG/DL (74-106) # Calcium Level 7.1 MG/DL (8.5-10.1) L 7.8 MG/DL (8.5-10.1) L Total Bilirubin 0.3 MG/DL (0.2-1.0) Aspartate Amino Transf (AST/SGOT) 20 U/L (15-37) Alanine Aminotransferase (ALT/SGPT) 29 U/L (12-78) Alkaline Phosphatase 85 U/L (46-116) Total Protein 7.0 G/DL (6.4-8.2) Albumin 1.7 G/DL (3.4-5.0) L Globulin 5.3 g/dL Albumin/Globulin Ratio 0.3 (1.0-2.7) L Microbiology Date/Time Source Procedure Growth Status 01/29/18 17:10 Blood Blood Culture - Preliminary NO GROWTH AFTER 24 HOURS Resulted Rob Cote M.D. Jan 31, 2018 15:46
[2018-01-31] MEDS ORDERED: Sterile Water Irrig 1000ml IRRIG ONE (16:23)
[2018-01-31] MEDS ORDERED: NS 275ml ONE (16:23)
[2018-01-31] MEDS ORDERED: Tubing IV Secondary IV ONE (16:23)
--- NOTE | 2018-01-31 16:32 | Internal Med Progress Note ---
Subjective Date of Service: Jan 31, 2018 Physician Name Adrian Porter Attending Physician Guillermo Morel MD Current Medications Medications (Trade) Dose Ordered Sig/Kel Route PRN Reason Start Time Stop Time Status Last Admin Dose Admin Acetaminophen (Tylenol) 650 mg Q4H PRN ORAL FEVER 01/28/18 05:52 02/17/18 05:51 01/30/18 02:27 Cefepime HCl 1 gm/ Dextrose 110 ml @ 220 mls/hr EVERY 12 HOURS IVPB 01/28/18 21:00 02/04/18 20:59 01/31/18 08:52 Chlorhexidine Gluconate (Neela-Hex 2%) 1 applic DAILY@2000 TOPIC 01/28/18 20:00 02/19/18 19:59 01/30/18 21:15 Dextrose (Dextrose 50%) 25 ml STAT PRN IV Hypoglycemia 01/28/18 13:00 02/27/18 12:59 Dextrose (Dextrose 50%) 50 ml STAT PRN IV Hypoglycemia 01/28/18 13:00 02/27/18 12:59 Dextrose/Sodium Chloride 1,000 ml @ 75 mls/hr [id number] IV 01/31/18 09:00 03/02/18 08:59 01/31/18 09:00 Heparin Sodium (Porcine) (Heparin 5000 units/ml) 5,000 units EVERY 12 HOURS SUBQ 01/28/18 21:00 02/17/18 08:59 01/31/18 11:24 Levetiracetam 100 ml @ 400 mls/hr Q12HR IVPB 01/28/18 21:00 02/17/18 22:29 01/31/18 08:51 Metronidazole 100 ml @ 100 mls/hr Q8HR IVPB 01/28/18 14:00 02/02/18 10:59 01/31/18 13:48 Ondansetron HCl (Zofran) 4 mg Q6H PRN IVP Nausea & Vomiting 01/28/18 13:15 02/17/18 07:14 Pantoprazole (Protonix) 40 mg Q12HR IV 01/28/18 21:00 02/17/18 08:59 01/31/18 11:02 Phenytoin 150 mg/ Sodium Chloride 58 ml @ 114 mls/hr EVERY 12 HOURS IVPB 7/12/18 21:00 02/17/18 22:29 01/31/18 11:02 Polyethylene Glycol (Miralax) 17 gm DAILYPRN PRN ORAL Constipation 01/29/18 13:00 02/17/18 12:59 Tigecycline 50 mg/ Dextrose 110 ml @ 220 mls/hr EVERY 12 HOURS IVPB 01/28/18 21:00 02/01/18 22:59 01/31/18 08:51 Vancomycin HCl (Vancomycin) 125 mg FOUR TIMES A DAY ORAL 01/28/18 13:00 02/01/18 17:59 01/31/18 13:48 Allergies: Coded Allergies: No Known Allergies (Unverified , 01/18/15) ROS Limited/Unobtainable: Yes Subjective 37 YO F admitted with abdominal distention. S/P cardiac arrest. S/P exploratory laparotomy 01/19/18. S/P sigmoidectomy and hemicolectomy 01/21/18. Cover for Int Efraín-Dr Morel. Intubated and sedated. JOSSE. Low Grade fever Objective Last Vital Signs Date Time Temp Pulse Resp B/P (MAP) Pulse Ox O2 Delivery O2 Flow Rate FiO2 01/31/18 16:01 98 19 30 01/31/18 16:00 Mechanical Ventilator 01/31/18 12:00 98.2 100/62 (75) 100 98.2 01/28/18 02:36 30.0 Laboratory Tests Test 01/31/18 04:00 01/31/18 06:45 01/31/18 10:10 White Blood Count 18.7 K/UL (4.8-10.8) H 20.1 K/UL (4.8-10.8) H Red Blood Count 2.56 M/UL (4.20-5.40) L 2.94 M/UL (4.20-5.40) L Hemoglobin 7.7 G/DL (12.0-16.0) L 8.6 G/DL (12.0-16.0) L Hematocrit 23.8 % (37.0-47.0) L 27.3 % (37.0-47.0) L Mean Corpuscular Volume 93 FL (80-99) 93 FL (80-99) Mean Corpuscular Hemoglobin 30.0 PG (27.0-31.0) 29.4 PG (27.0-31.0) Mean Corpuscular Hemoglobin Concent 32.2 G/DL (32.0-36.0) 31.6 G/DL (32.0-36.0) L Red Cell Distribution Width 13.2 % (11.6-14.8) 13.6 % (11.6-14.8) Platelet Count 302 K/UL (150-450) 326 K/UL (150-450) Mean Platelet Volume 6.1 FL (6.5-10.1) L 6.2 FL (6.5-10.1) L Neutrophils (%) (Auto) % (45.0-75.0) % (45.0-75.0) Lymphocytes (%) (Auto) % (20.0-45.0) % (20.0-45.0) Monocytes (%) (Auto) % (1.0-10.0) % (1.0-10.0) Eosinophils (%) (Auto) % (0.0-3.0) % (0.0-3.0) Basophils (%) (Auto) % (0.0-2.0) % (0.0-2.0) Differential Total Cells Counted 100 100 Neutrophils % (Manual) 73 % (45-75) 84 % (45-75) H Lymphocytes % (Manual) 11 % (20-45) L 8 % (20-45) L Monocytes % (Manual) 15 % (1-10) H 7 % (1-10) Eosinophils % (Manual) 1 % (0-3) 0 % (0-3) Basophils % (Manual) 0 % (0-2) 0 % (0-2) Band Neutrophils 0 % (0-8) 1 % (0-8) Platelet Estimate Adequate Adequate Platelet Morphology Normal Normal Hypochromasia 1+ 1+ Sodium Level 141 MMOL/L (136-145) 139 MMOL/L (136-145) Potassium Level 6.0 MMOL/L (3.5-5.1) *H 5.2 MMOL/L (3.5-5.1) H 5.5 MMOL/L (3.5-5.1) H Chloride Level 115 MMOL/L (98-107) H 109 MMOL/L (98-107) H Carbon Dioxide Level 22 MMOL/L (21-32) 21 MMOL/L (21-32) Anion Gap 3 mmol/L (5-15) L 9 mmol/L (5-15) Blood Urea Nitrogen 5 mg/dL (7-18) L 6 mg/dL (7-18) L Creatinine 1.0 MG/DL (0.55-1.30) 1.0 MG/DL (0.55-1.30) Estimat Glomerular Filtration Rate > 60 mL/min (>60) > 60 mL/min (>60) Glucose Level 363 MG/DL (74-106) #H 83 MG/DL (74-106) # Calcium Level 7.1 MG/DL (8.5-10.1) L 7.8 MG/DL (8.5-10.1) L Total Bilirubin 0.3 MG/DL (0.2-1.0) Aspartate Amino Transf (AST/SGOT) 20 U/L (15-37) Alanine Aminotransferase (ALT/SGPT) 29 U/L (12-78) Alkaline Phosphatase 85 U/L (46-116) Total Protein 7.0 G/DL (6.4-8.2) Albumin 1.7 G/DL (3.4-5.0) L Globulin 5.3 g/dL Albumin/Globulin Ratio 0.3 (1.0-2.7) L Microbiology Date/Time Source Procedure Growth Status 01/29/18 17:10 Blood Blood Culture - Preliminary NO GROWTH AFTER 24 HOURS Resulted Intake and Output 01/30/18 01/31/18 19:00 07:00 Intake Total 1060 ml 2046 ml Output Total 2790 ml 2365 ml Balance -1730 ml -319 ml IV Total 1060 ml 2046 ml Output Urine Total 2550 ml 2200 ml Stool Total 140 ml 150 ml Drainage Total 100 ml 15 ml # Bowel Movements 2 Objective General Appearance: WD/WN, lethargic EENT: normal ENT inspection Neck: non-tender, normal alignment, supple, other - tracheostomy Cardiovascular: normal peripheral pulses, normal rate, regular rhythm, regularly irregular, no gallop/murmur, no JVD Respiratory/Chest: Mech vent; chest wall non-tender, no accessory muscle use, rhonchi - bilaterally, other - Mech Vent Abdomen: ostomy; normal bowel sounds, non tender, soft, no organomegaly, no mass Extremities: normal inspection Skin: normal pigmentation, warm/dry Assessment/Plan Problem List: (1) Incarcerated ventral hernia Assessment & Plan: S/P exploratory laparotomy on 01/19/18-see surgery note. S/P sigmoidectomy, omentectomy and hemicolectomy on 01/21/18. Continue vanco, flagyl , tigecycline and micafungin per ID (2) Volvulus of sigmoid colon (3) Abdominal distension Assessment & Plan: Resolving-see surgery note. (4) Cardiac arrest Assessment & Plan: see cardiology note (5) Seizure disorder Assessment & Plan: Continue keppra and dilantin (6) Anemia (7) Hypertension Assessment & Plan: Hypotensived. Currently on pressors. (8) Encephalopathy (9) Dysphagia (10) Tachycardia (11) Severe sepsis Assessment & Plan: See ID note. (12) Anoxic brain injury (13) Respiratory failure (14) Leukocytosis Assessment & Plan: Worsening. See ID note (15) GI bleed Assessment & Plan: See GI note. Status: not improved Assessment/Plan prognosis is guarded. Adrian Porter MD Jan 31, 2018 16:32
[2018-01-31 20:00] VITALS: BP 129/64
[2018-01-31] MEDS: Dyna-Hex 2% Top Sol 2oz TOPIC SCH (20:54)
[2018-02-01] VITALS: BP 118/76
[2018-02-01 03:52] LABS: BASOPHILS % (AUTO) 1.1 % (0.0-2.0); EOSINOPHILS % (AUTO) 1.9 % (0.0-3.0); HEMATOCRIT 24.5 % (37.0-47.0); MEAN CORPUSCULAR VOLUME 92 FL (80-99); MONOCYTES % (AUTO) 10.5 % (1.0-10.0); NEUTROPHILS % (AUTO) 72.5 % (45.0-75.0); PLATELET COUNT 363 K/UL (150-450); RED BLOOD COUNT 2.67 M/UL (4.20-5.40); RED CELL DISTRIBUTION WIDTH 13.1 % (11.6-14.8); WHITE BLOOD COUNT 17.1 K/UL (4.8-10.8)
[2018-02-01 04:00] VITALS: BP 140/68
[2018-02-01 04:07] LABS: ANION GAP 9 mmol/L (5-15); BLOOD UREA NITROGEN 5 mg/dL (7-18); CALCIUM 7.7 MG/DL (8.5-10.1); CARBON DIOXIDE 21 MMOL/L (21-32); CHLORIDE 109 MMOL/L (98-107); CREATININE 0.9 MG/DL (0.55-1.30); POTASSIUM 4.4 MMOL/L (3.5-5.1); SODIUM 139 MMOL/L (136-145)
[2018-02-01 08:00] VITALS: BP 142/75
[2018-02-01] MEDS: Pantoprazole Inj IV SCH ×2 (08:42→21:47)
[2018-02-01] MEDS: Cefepime HCl 1 GM in D5W 110 ML IVPB SCH ×2 (08:47→21:48)
[2018-02-01] MEDS: Tigecycline 50 MG in D5W 110 ML IVPB SCH ×2 (08:48→21:48)
[2018-02-01] MEDS: levETIRAcetam 1,000mg/NS100ml 100 ML IVPB SCH ×2 (08:48→21:47)
[2018-02-01] MEDS: Heparin 5000 units/ml inj SUBQ SCH ×2 (09:08→21:50)
[2018-02-01] MEDS: PHENYTOIN IVPB SCH ×2 (09:20→22:48)
[2018-02-01] MEDS: NS IVPB SCH ×2 (09:20→22:48)
[2018-02-01] MEDS: Vancomycin oral 125mg/2.5ml ORAL SCH ×4 (09:24→21:49)
--- NOTE | 2018-02-01 10:10 | Pulmonolgy Critical Care Note ---
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 with: nurses, consultants, 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 - Objective Last 24 Hour Vital Signs Date Time Temp Pulse Resp B/P (MAP) Pulse Ox O2 Delivery O2 Flow Rate FiO2 02/01/18 08:00 76 02/01/18 08:00 Mechanical Ventilator 02/01/18 08:00 30 02/01/18 08:00 97.2 82 12 142/75 (97) 100 97.2 02/01/18 07:29 66 12 30 02/01/18 04:50 86 12 30 02/01/18 04:00 97.2 90 14 140/68 (92) 96 97.2 02/01/18 04:00 Mechanical Ventilator 02/01/18 04:00 30 02/01/18 04:00 97 02/01/18 02:29 97 19 30 02/01/18 01:35 87 20 30 02/01/18 00:00 Mechanical Ventilator 02/01/18 00:00 30 02/01/18 00:00 86 02/01/18 00:00 98.2 100 16 118/76 (90) 100 98.2 01/31/18 23:30 72 22 30 01/31/18 21:11 81 18 30 01/31/18 20:00 Mechanical Ventilator 01/31/18 20:00 96 01/31/18 20:00 30 01/31/18 20:00 98.4 96 20 129/64 (85) 98 98.4 01/31/18 18:39 88 18 30 01/31/18 17:12 94 25 30 01/31/18 16:01 98 19 30 01/31/18 16:00 30 01/31/18 16:00 93 7/15/18 16:00 Mechanical Ventilator 01/31/18 12:53 93 16 30 01/31/18 12:00 95 01/31/18 12:00 98.2 93 20 100/62 (75) 100 98.2 01/31/18 12:00 30 01/31/18 12:00 Mechanical Ventilator 01/31/18 10:53 88 14 30 Status: obtunded Condition: critical HEENT: atraumatic Lungs: clear Abdomen: soft, non-tender, feeding tube Extremities: edema Micro: Microbiology Date/Time Source Procedure Growth Status 01/29/18 17:10 Blood Blood Culture - Preliminary NO GROWTH AFTER 48 HOURS Resulted Accucheck: 248 Critical Care - Subjective ROS Limited/Unobtainable: No Condition: critical EKG Rhythm: Sinus Rhythm FI02: 30 Vent Support Breath Rate: 12 Vent Support Mode: AC Vent Tidal Volume: 600 Sputum Amount: Small PEEP: 5.0 PIP: 27 I&O: Intake and Output 01/31/18 02/01/18 19:00 07:00 Intake Total 868 ml 1981 ml Output Total 2470 ml 2525 ml Balance -1602 ml -544 ml IV Total 868 ml 1981 ml Output Urine Total 2350 ml 2400 ml Stool Total 60 ml 100 ml Drainage Total 60 ml 25 ml Labs: Laboratory Tests Test 01/31/18 10:10 02/01/18 02:50 Potassium Level 5.5 MMOL/L (3.5-5.1) H 4.4 MMOL/L (3.5-5.1) White Blood Count 17.1 K/UL (4.8-10.8) H Red Blood Count 2.67 M/UL (4.20-5.40) L Hemoglobin 8.0 G/DL (12.0-16.0) L Hematocrit 24.5 % (37.0-47.0) L Mean Corpuscular Volume 92 FL (80-99) Mean Corpuscular Hemoglobin 30.2 PG (27.0-31.0) Mean Corpuscular Hemoglobin Concent 32.8 G/DL (32.0-36.0) Red Cell Distribution Width 13.1 % (11.6-14.8) Platelet Count 363 K/UL (150-450) Mean Platelet Volume 6.3 FL (6.5-10.1) L Neutrophils (%) (Auto) 72.5 % (45.0-75.0) Lymphocytes (%) (Auto) 14.0 % (20.0-45.0) L Monocytes (%) (Auto) 10.5 % (1.0-10.0) H Eosinophils (%) (Auto) 1.9 % (0.0-3.0) Basophils (%) (Auto) 1.1 % (0.0-2.0) Sodium Level 139 MMOL/L (136-145) Chloride Level 109 MMOL/L (98-107) H Carbon Dioxide Level 21 MMOL/L (21-32) Anion Gap 9 mmol/L (5-15) Blood Urea Nitrogen 5 mg/dL (7-18) L Creatinine 0.9 MG/DL (0.55-1.30) Estimat Glomerular Filtration Rate > 60 mL/min (>60) Glucose Level 80 MG/DL (74-106) Calcium Level 7.7 MG/DL (8.5-10.1) L Yanick Hernandez MD Feb 01, 2018 10:10
--- NOTE | 2018-02-01 11:03 | General Progress Note ---
Assessment/Plan Status: unchanged Assessment/Plan #. Leukocytosis, likely due to infection, peritonitis, now better --> The patient with lactic acidosis. Lactic acid 7.4. --> Currently on pressors. Rule out infectious etiology. --> On broad-spectrum antibiotics and antifungals. --> Closely monitor for improvement. #. Anemia currently due to blood loss from surgery in addition to hemodilution --> cr goal is >7 --> jak2 level pending under serology as she had erythrocytosis on presentation --> anemia w/u has been reviewed, will trend daily. --> 01/29: 1 unit blood #. Coagulopathy with inr 1.6 likely due to malnutrition v dic --> obtain a mixing study #. Septic shock, closely monitor, --> on antibiotics, broad spectrum. #. Seizure disorder, currently on antiseizure medication. #. Respiratory failure, status post trach and vent. #. Dysphagia, status post gastrostomy tube. The time the note was entered does not necessarily correspond to the time the patient was seen. Subjective Date patient seen: Jan 31, 2018 ROS Limited/Unobtainable: Yes Hematologic/Lymphatic: Reports: anemia Allergies: Coded Allergies: No Known Allergies (Unverified , 01/18/15) All Systems: reviewed and negative except above Subjective No acute events. Pt remains obtunded and on vent. No resp distress. Objective Last 24 Hour Vital Signs Date Time Temp Pulse Resp B/P (MAP) Pulse Ox O2 Delivery O2 Flow Rate FiO2 02/01/18 09:06 99 14 30 02/01/18 08:00 76 02/01/18 08:00 Mechanical Ventilator 02/01/18 08:00 30 02/01/18 08:00 97.2 82 12 142/75 (97) 100 97.2 02/01/18 07:29 66 12 30 02/01/18 04:50 86 12 30 02/01/18 04:00 97.2 90 14 140/68 (92) 96 97.2 02/01/18 04:00 Mechanical Ventilator 02/01/18 04:00 30 02/01/18 04:00 97 02/01/18 02:29 97 19 30 02/01/18 01:35 87 20 30 02/01/18 00:00 Mechanical Ventilator 02/01/18 00:00 30 02/01/18 00:00 86 02/01/18 00:00 98.2 100 16 118/76 (90) 100 98.2 01/31/18 23:30 72 22 30 01/31/18 21:11 81 18 30 01/31/18 20:00 Mechanical Ventilator 01/31/18 20:00 96 01/31/18 20:00 30 01/31/18 20:00 98.4 96 20 129/64 (85) 98 98.4 01/31/18 18:39 88 18 30 01/31/18 17:12 94 25 30 01/31/18 16:01 98 19 30 01/31/18 16:00 30 01/31/18 16:00 93 01/31/18 16:00 Mechanical Ventilator 01/31/18 12:53 93 16 30 01/31/18 12:00 95 01/31/18 12:00 98.2 93 20 100/62 (75) 100 98.2 01/31/18 12:00 30 01/31/18 12:00 Mechanical Ventilator Intake and Output 01/31/18 02/01/18 19:00 07:00 Intake Total 868 ml 1981 ml Output Total 2470 ml 2525 ml Balance -1602 ml -544 ml IV Total 868 ml 1981 ml Output Urine Total 2350 ml 2400 ml Stool Total 60 ml 100 ml Drainage Total 60 ml 25 ml Laboratory Tests 02/01/18 02:50: White Blood Count 17.1H, Red Blood Count 2.67L, Hemoglobin 8.0L, Hematocrit 24.5L, Mean Corpuscular Volume 92, Mean Corpuscular Hemoglobin 30.2, Mean Corpuscular Hemoglobin Concent 32.8, Red Cell Distribution Width 13.1, Platelet Count 363, Mean Platelet Volume 6.3L, Neutrophils (%) (Auto) 72.5, Lymphocytes ( %) (Auto) 14.0L, Monocytes (%) (Auto) 10.5H, Eosinophils (%) (Auto) 1.9, Basophils (%) (Auto) 1.1, Sodium Level 139, Potassium Level 4.4, Chloride Level 109H, Carbon Dioxide Level 21, Anion Gap 9, Blood Urea Nitrogen 5L, Creatinine 0.9, Estimat Glomerular Filtration Rate > 60, Glucose Level 80, Calcium Level 7.7L Height (Feet): 5 Height (Inches): 3.00 Weight (Pounds): 187 General Appearance: no apparent distress, lethargic EENT: PERRL/EOMI Neck: normal alignment, limited range of motion Cardiovascular: tachycardia Respiratory/Chest: no respiratory distress Abdomen: no organomegaly Isaiah Noriega MD Feb 01, 2018 11:03
--- NOTE | 2018-02-01 11:13 | Infectious Diseases Prog Note ---
Assessment/Plan Assessment/Plan Assessment: Septic shock,SP ; resolved after surgical exploration- 2ry intraabdominal source- (intra-abdominal peritonitis 2ry to malpositioned gastric feeding tube, incarcerated fat containing ventral hernia and likely sigmoid volvulus) --SP Re-exploration of abdomen, Sigmoid colectomy for volvulus, Takedown of splenic flexure, Left hemicolectomy, Creation of transverse colostomy, Abdominal closure 01/21 -OR findings: no further leakage of gastric contents or feeds. No bleeding. sigmoid colon remained significantly distended despite rectal tube placement and prior decompression. Sigmoid colon easily volvulized intraoperatively. --SP Exploratory laparotomy, Abdominal washout, G-tube replacement, wound vac placment, Excision of incarcerated ventral hernia, and Reduction of sigmoid volvulus 01/19 --no perforation or gross necrosis noted upon surgical exploration --abd fluid cx anerobic Neg; aerobic P. mirabilis (I Cipro, otherwise S), Serratia liquefences (R ancef, levo; otherwise S), CONS -No obvious pathology on lungs on CXR. r/o UTI -Bcx 2/4 Diptheroids, 1/4 CONS (contaminants), Aerococcus sp (typically a urinary pathogen; S Vanco, Ceftriaxone, PNC), ?UTI (often is not isolated from urine culture given special media requirements) -u/a initial normal; repeat WBC 10-15, nit +, leuk +1 but sq cells mod ( contaminated); ucx NTD -CXR: Hyperlucent the upper abdomen. Free air not excluded. Correlate clinically. Distended bowel also noted. No acute disease within the chest. Tracheostomy -CRP impoved (now 7) -Lipase ~1k Fever, Sp Leukocytosis (peak to 40s; now improving)-Supect Cdiff (increased foul smelling ostomy output, dilation of bowels, no obvious abscess on limited CT). Likely Pancreatitis (elevated Lipase);a also GIB colntributing -KUB 01/27 Moderate stool in the rectal vault but overall improved compared to the last study done on January 18, 2018. -01/27, 01/29 Bcx NTD Diarrhea CDiff toxin A/B EIA neg (this test ahs low sensitivity); still suspect Cdiff -CT chest/abd/p 01/24: Very limited examination due to the lack of intravenous and oral contrast administration. Status post recent abdominal surgery with open anterior abdominal incision still noted. No abscess. Suggestion of dilatation of multiple loops of small bowel, not evaluated well on this examination. Findings may be due to postoperative ileus. Obstruction is not excludable. Left lower quadrant ostomy noted. Small bilateral pleural effusions and posterior basal atelectasis. Tracheostomy, PICC line, gastrostomy, Rock catheter is in good position. Moderate fecal retention in the rectum which is distended. Anasarca. -CXR: Question of new pneumomediastinum along the left heart margin. Question whether the tracheostomy is appropriately sealed. Basilar opacities again noted, increased on the left. Some of this could be due to differences in positioning, but question increasing pleural fluid and associated atelectasis/consolidation. Right-sided opacity is stable. ?Pneumomediastinum- not see on CT chest Elevated CPK- resolved -Dapto d/c 01/21 POssible PNA- -CXR 01/29Worsening of aeration with increased opacification at the right base which may related to small layering pleural effusion, atelectasis and/or pneumonia. -sp cx MDR ABC ( S Bactrim, Tigecycline, Colistin, Polymixin B), E.coli #2 ( S. Ceftriaxone, Cefepime; R Zosyn); repeat 01/24 sp cx MDR ABC, MDR PsA (S Cefepime) GIB Acute blood loss anemia Bradycardia> Asystolic cardiac arrest Acute on chronic respirator failure Lactic acidosis; resolved INDIRA; improving HTN seizure disorder anoxic brain injury 2014 chronic resp failure trach/vent dependant 2014 s/p G-tube 2015 SN[facility] resident Plan: -Continue Tigecycline # 8 (abx d# 15) for intra-abdominal and MDR ABC in sputum coverage and synergistic for possible Cdiff -Continue IV Cefepime # 5/7-10 for MDR PsA in repeat sp cx -Continue empiric PO Vancomycin # 8 and IV Flagyl # 8 for suspected severe CDiff -01/27 SP Micafungin #10 -01/26 SP IV Vancomycin #6, PO Bactrim #5 -/9 SP Meropenem #8 -7/ SP Daptomycin #4 (d/c due to elevated CPK) -01/18 SP IV Vancomycin #1, Cefepime x1, Azithromycin x1, Zosyn x1 -f/u Bcx x2 (peripheral and PICC) -Monitor CBC/BMP, temperatures -Trend WBC -Surgery, GI following -wound care per hospital protocol -Cdiff precautions -CXR am Subjective Allergies: Coded Allergies: No Known Allergies (Unverified , 01/18/15) Subjective afebrile in 48hrs leukocytosis improving tachycardic resolved Hgb improved to 8 repeat Bcx NTD output drain RENÉ decreasing Objective Vital Signs Last 24 Hour Vital Signs Date Time Temp Pulse Resp B/P (MAP) Pulse Ox O2 Delivery O2 Flow Rate FiO2 02/01/18 09:06 99 14 30 02/01/18 08:00 76 02/01/18 08:00 Mechanical Ventilator 02/01/18 08:00 30 02/01/18 08:00 97.2 82 12 142/75 (97) 100 97.2 02/01/18 07:29 66 12 30 02/01/18 04:50 86 12 30 02/01/18 04:00 97.2 90 14 140/68 (92) 96 97.2 02/01/18 04:00 Mechanical Ventilator 02/01/18 04:00 30 02/01/18 04:00 97 02/01/18 02:29 97 19 30 02/01/18 01:35 87 20 30 02/01/18 00:00 Mechanical Ventilator 02/01/18 00:00 30 02/01/18 00:00 86 02/01/18 00:00 98.2 100 16 118/76 (90) 100 98.2 01/31/18 23:30 72 22 30 01/31/18 21:11 81 18 30 01/31/18 20:00 Mechanical Ventilator 01/31/18 20:00 96 01/31/18 20:00 30 01/31/18 20:00 98.4 96 20 129/64 (85) 98 98.4 01/31/18 18:39 88 18 30 01/31/18 17:12 94 25 30 01/31/18 16:01 98 19 30 01/31/18 16:00 30 01/31/18 16:00 93 01/31/18 16:00 Mechanical Ventilator 01/31/18 12:53 93 16 30 01/31/18 12:00 95 01/31/18 12:00 98.2 93 20 100/62 (75) 100 98.2 01/31/18 12:00 30 01/31/18 12:00 Mechanical Ventilator Height (Feet): 5 Height (Inches): 3.00 Weight (Pounds): 187 Objective General Appearance: chronically ill HEENT: normocephalic, bilateral eye PERRL Neck: tracheotomy Respiratory: crackles, rhonchi Cardiovascular : tachycardia Gastrointestinal: Gtube present; significant abd distention with some grimacing upon palpation; diminished to absent bowel sounds Genitourinary: rock in place Musculoskeletal: other - contracted extremities Neurologic: other - nonverbal Skin: no rash or cellulitis Microbiology Date/Time Source Procedure Growth Status 01/29/18 17:10 Blood Blood Culture - Preliminary NO GROWTH AFTER 48 HOURS Resulted Laboratory Tests Test 02/01/18 02:50 White Blood Count 17.1 K/UL (4.8-10.8) H Red Blood Count 2.67 M/UL (4.20-5.40) L Hemoglobin 8.0 G/DL (12.0-16.0) L Hematocrit 24.5 % (37.0-47.0) L Mean Corpuscular Volume 92 FL (80-99) Mean Corpuscular Hemoglobin 30.2 PG (27.0-31.0) Mean Corpuscular Hemoglobin Concent 32.8 G/DL (32.0-36.0) Red Cell Distribution Width 13.1 % (11.6-14.8) Platelet Count 363 K/UL (150-450) Mean Platelet Volume 6.3 FL (6.5-10.1) L Neutrophils (%) (Auto) 72.5 % (45.0-75.0) Lymphocytes (%) (Auto) 14.0 % (20.0-45.0) L Monocytes (%) (Auto) 10.5 % (1.0-10.0) H Eosinophils (%) (Auto) 1.9 % (0.0-3.0) Basophils (%) (Auto) 1.1 % (0.0-2.0) Sodium Level 139 MMOL/L (136-145) Potassium Level 4.4 MMOL/L (3.5-5.1) Chloride Level 109 MMOL/L (98-107) H Carbon Dioxide Level 21 MMOL/L (21-32) Anion Gap 9 mmol/L (5-15) Blood Urea Nitrogen 5 mg/dL (7-18) L Creatinine 0.9 MG/DL (0.55-1.30) Estimat Glomerular Filtration Rate > 60 mL/min (>60) Glucose Level 80 MG/DL (74-106) Calcium Level 7.7 MG/DL (8.5-10.1) L Current Medications Medications (Trade) Dose Ordered Sig/Kel Route PRN Reason Start Time Stop Time Status Last Admin Dose Admin Acetaminophen (Tylenol) 650 mg Q4H PRN ORAL FEVER 01/28/18 05:52 02/17/18 05:51 01/30/18 02:27 Cefepime HCl 1 gm/ Dextrose 110 ml @ 220 mls/hr EVERY 12 HOURS IVPB 01/28/18 21:00 02/04/18 20:59 02/01/18 08:47 Chlorhexidine Gluconate (Neela-Hex 2%) 1 applic DAILY@2000 TOPIC 01/28/18 20:00 02/19/18 19:59 01/31/18 20:54 Dextrose (Dextrose 50%) 25 ml STAT PRN IV Hypoglycemia 01/28/18 13:00 02/27/18 12:59 Dextrose (Dextrose 50%) 50 ml STAT PRN IV Hypoglycemia 01/28/18 13:00 02/27/18 12:59 Dextrose/Sodium Chloride 1,000 ml @ 75 mls/hr [id number] IV 01/31/18 09:00 03/02/18 08:59 01/31/18 21:58 Heparin Sodium (Porcine) (Heparin 5000 units/ml) 5,000 units EVERY 12 HOURS SUBQ 01/28/18 21:00 02/17/18 08:59 02/01/18 09:08 Levetiracetam 100 ml @ 400 mls/hr Q12HR IVPB 01/28/18 21:00 02/17/18 22:29 02/01/18 08:48 Metronidazole 100 ml @ 100 mls/hr Q8HR IVPB 01/28/18 14:00 02/02/18 10:59 02/01/18 05:05 Ondansetron HCl (Zofran) 4 mg Q6H PRN IVP Nausea & Vomiting 01/28/18 13:15 02/17/18 07:14 Pantoprazole (Protonix) 40 mg Q12HR IV 01/28/18 21:00 02/17/18 08:59 02/01/18 08:42 Phenytoin 150 mg/ Sodium Chloride 58 ml @ 114 mls/hr EVERY 12 HOURS IVPB 01/28/18 21:00 02/17/18 22:29 02/01/18 09:20 Polyethylene Glycol (Miralax) 17 gm DAILYPRN PRN ORAL Constipation 01/29/18 13:00 02/17/18 12:59 Tigecycline 50 mg/ Dextrose 110 ml @ 220 mls/hr EVERY 12 HOURS IVPB 01/28/18 21:00 02/01/18 22:59 02/01/18 08:48 Vancomycin HCl (Vancomycin) 125 mg FOUR TIMES A DAY ORAL 01/28/18 13:00 02/01/18 17:59 02/01/18 09:24 Amelia Bah M.D. Feb 01, 2018 11:13
--- NOTE | 2018-02-01 11:21 | GI Progress Note ---
Assessment/Plan Problems: (1) GI bleed ICD Codes: K92.2 - Gastrointestinal hemorrhage, unspecified SNOMED: 83198217 (2) Feeding by G-tube ICD Codes: Z93.1 - Feeding by G-tube SNOMED: 484909656 (3) Anoxic brain injury ICD Codes: G93.1 - Anoxic brain injury SNOMED: 812002378 (4) Severe sepsis ICD Codes: A41.9 - Sepsis, unspecified organism; R65.20 - Severe sepsis without septic shock SNOMED: 91403644 (5) Anemia ICD Codes: D64.9 - Anemia SNOMED: 078775325 Status: stable, progressing Status Narrative Discussed with Dr. Reese. Assessment/Plan anemia work up reviewed - folate deficiency - no iron deficiency - downtrending H&H active GI bleed, most likely due to recent surgery cdiff negative lipase elevation gastric lavage >> no heme noted normal coags colostomy drainage >> previous noted with blood, now brown. defer any GI procedures given recent surgery restart GTFs IV hydration + electrolyte correction monitor H&H, transfuse prn per hematology folate ppi BID trend lipase fu labs The patient was seen and examined at bedside and all new and available data was reviewed in the patients chart. I agree with the above findings, impression and plan. (Patient seen earlier today. Signature stamp does not reflect patient encounter time.). - Baldemar Reese MD Subjective Subjective limited Objective Last 24 Hour Vital Signs Date Time Temp Pulse Resp B/P (MAP) Pulse Ox O2 Delivery O2 Flow Rate FiO2 02/01/18 09:06 99 14 30 02/01/18 08:00 76 02/01/18 08:00 Mechanical Ventilator 02/01/18 08:00 30 02/01/18 08:00 97.2 82 12 142/75 (97) 100 97.2 02/01/18 07:29 66 12 30 02/01/18 04:50 86 12 30 02/01/18 04:00 97.2 90 14 140/68 (92) 96 97.2 02/01/18 04:00 Mechanical Ventilator 02/01/18 04:00 30 02/01/18 04:00 97 02/01/18 02:29 97 19 30 02/01/18 01:35 87 20 30 02/01/18 00:00 Mechanical Ventilator 02/01/18 00:00 30 02/01/18 00:00 86 02/01/18 00:00 98.2 100 16 118/76 (90) 100 98.2 01/31/18 23:30 72 22 30 01/31/18 21:11 81 18 30 01/31/18 20:00 Mechanical Ventilator 01/31/18 20:00 96 01/31/18 20:00 30 01/31/18 20:00 98.4 96 20 129/64 (85) 98 98.4 01/31/18 18:39 88 18 30 01/31/18 17:12 94 25 30 01/31/18 16:01 98 19 30 01/31/18 16:00 30 01/31/18 16:00 93 01/31/18 16:00 Mechanical Ventilator 01/31/18 12:53 93 16 30 01/31/18 12:00 95 01/31/18 12:00 98.2 93 20 100/62 (75) 100 98.2 01/31/18 12:00 30 01/31/18 12:00 Mechanical Ventilator Intake and Output 01/31/18 02/01/18 19:00 07:00 Intake Total 868 ml 1981 ml Output Total 2470 ml 2525 ml Balance -1602 ml -544 ml IV Total 868 ml 1981 ml Output Urine Total 2350 ml 2400 ml Stool Total 60 ml 100 ml Drainage Total 60 ml 25 ml Laboratory Tests Test 02/01/18 02:50 White Blood Count 17.1 K/UL (4.8-10.8) H Red Blood Count 2.67 M/UL (4.20-5.40) L Hemoglobin 8.0 G/DL (12.0-16.0) L Hematocrit 24.5 % (37.0-47.0) L Mean Corpuscular Volume 92 FL (80-99) Mean Corpuscular Hemoglobin 30.2 PG (27.0-31.0) Mean Corpuscular Hemoglobin Concent 32.8 G/DL (32.0-36.0) Red Cell Distribution Width 13.1 % (11.6-14.8) Platelet Count 363 K/UL (150-450) Mean Platelet Volume 6.3 FL (6.5-10.1) L Neutrophils (%) (Auto) 72.5 % (45.0-75.0) Lymphocytes (%) (Auto) 14.0 % (20.0-45.0) L Monocytes (%) (Auto) 10.5 % (1.0-10.0) H Eosinophils (%) (Auto) 1.9 % (0.0-3.0) Basophils (%) (Auto) 1.1 % (0.0-2.0) Sodium Level 139 MMOL/L (136-145) Potassium Level 4.4 MMOL/L (3.5-5.1) Chloride Level 109 MMOL/L (98-107) H Carbon Dioxide Level 21 MMOL/L (21-32) Anion Gap 9 mmol/L (5-15) Blood Urea Nitrogen 5 mg/dL (7-18) L Creatinine 0.9 MG/DL (0.55-1.30) Estimat Glomerular Filtration Rate > 60 mL/min (>60) Glucose Level 80 MG/DL (74-106) Calcium Level 7.7 MG/DL (8.5-10.1) L Height (Feet): 5 Height (Inches): 3.00 Weight (Pounds): 187 General Appearance: cachetic Cardiovascular: normal rate Respiratory/Chest: other - trach Abdominal Exam: GT site, other - colostomy Ron Mead NP Feb 01, 2018 11:21
[2018-02-01] MEDS: D5NS 1,000 ML IV SCH ×2 (11:40→15:37)
[2018-02-01 12:00] VITALS: BP 105/80
--- NOTE | 2018-02-01 12:58 | General Progress Note ---
Progress Note Progress Note Surgery: overall improving. leukocytosis improving. drains removed ostomy functional wound healing cont with wound care. okay for placement from surgical standpoint Marshall Ferguson Feb 01, 2018 12:58
[2018-02-01 16:00] VITALS: BP 133/71
--- NOTE | 2018-02-01 18:43 | Internal Med Progress Note ---
Subjective Date of Service: Feb 01, 2018 Physician Name Adrian Porter Attending Physician Guillermo Morel MD Current Medications Medications (Trade) Dose Ordered Sig/Kel Route PRN Reason Start Time Stop Time Status Last Admin Dose Admin Acetaminophen (Tylenol) 650 mg Q4H PRN ORAL FEVER 01/28/18 05:52 02/17/18 05:51 01/30/18 02:27 Cefepime HCl 1 gm/ Dextrose 110 ml @ 220 mls/hr EVERY 12 HOURS IVPB 01/28/18 21:00 02/04/18 20:59 02/01/18 08:47 Chlorhexidine Gluconate (Neela-Hex 2%) 1 applic DAILY@2000 TOPIC 01/28/18 20:00 02/19/18 19:59 01/31/18 20:54 Dextrose (Dextrose 50%) 25 ml STAT PRN IV Hypoglycemia 01/28/18 13:00 02/27/18 12:59 Dextrose (Dextrose 50%) 50 ml STAT PRN IV Hypoglycemia 01/28/18 13:00 02/27/18 12:59 Dextrose/Sodium Chloride 1,000 ml @ 75 mls/hr [id number] IV 01/31/18 09:00 03/02/18 08:59 02/01/18 15:37 Heparin Sodium (Porcine) (Heparin 5000 units/ml) 5,000 units EVERY 12 HOURS SUBQ 01/28/18 21:00 02/17/18 08:59 02/01/18 09:08 Levetiracetam 100 ml @ 400 mls/hr Q12HR IVPB 01/28/18 21:00 02/17/18 22:29 02/01/18 08:48 Metronidazole 100 ml @ 100 mls/hr Q8HR IVPB 01/28/18 14:00 02/02/18 10:59 02/01/18 15:40 Ondansetron HCl (Zofran) 4 mg Q6H PRN IVP Nausea & Vomiting 01/28/18 13:15 02/17/18 07:14 Pantoprazole (Protonix) 40 mg Q12HR IV 01/28/18 21:00 02/17/18 08:59 02/01/18 08:42 Phenytoin 150 mg/ Sodium Chloride 58 ml @ 114 mls/hr EVERY 12 HOURS IVPB 7/12/18 21:00 02/17/18 22:29 02/01/18 09:20 Polyethylene Glycol (Miralax) 17 gm DAILYPRN PRN ORAL Constipation 01/29/18 13:00 02/17/18 12:59 Tigecycline 50 mg/ Dextrose 110 ml @ 220 mls/hr EVERY 12 HOURS IVPB 01/28/18 21:00 02/01/18 22:59 02/01/18 08:48 Vancomycin HCl (Vancomycin) 125 mg FOUR TIMES A DAY ORAL 01/28/18 13:00 02/06/18 12:59 02/01/18 18:29 Allergies: Coded Allergies: No Known Allergies (Unverified , 01/18/15) ROS Limited/Unobtainable: Yes Subjective 37 YO F admitted with abdominal distention. S/P cardiac arrest. S/P exploratory laparotomy 01/19/18. S/P sigmoidectomy and hemicolectomy 01/21/18. Cover for Int Med-Dr Morel. Intubated and sedated. JOSSE. Objective Last Vital Signs Date Time Temp Pulse Resp B/P (MAP) Pulse Ox O2 Delivery O2 Flow Rate FiO2 02/01/18 16:31 71 12 30 02/01/18 16:00 98.3 133/71 (91) 94 98.3 02/01/18 16:00 Mechanical Ventilator 01/28/18 02:36 30.0 Laboratory Tests Test 02/01/18 02:50 White Blood Count 17.1 K/UL (4.8-10.8) H Red Blood Count 2.67 M/UL (4.20-5.40) L Hemoglobin 8.0 G/DL (12.0-16.0) L Hematocrit 24.5 % (37.0-47.0) L Mean Corpuscular Volume 92 FL (80-99) Mean Corpuscular Hemoglobin 30.2 PG (27.0-31.0) Mean Corpuscular Hemoglobin Concent 32.8 G/DL (32.0-36.0) Red Cell Distribution Width 13.1 % (11.6-14.8) Platelet Count 363 K/UL (150-450) Mean Platelet Volume 6.3 FL (6.5-10.1) L Neutrophils (%) (Auto) 72.5 % (45.0-75.0) Lymphocytes (%) (Auto) 14.0 % (20.0-45.0) L Monocytes (%) (Auto) 10.5 % (1.0-10.0) H Eosinophils (%) (Auto) 1.9 % (0.0-3.0) Basophils (%) (Auto) 1.1 % (0.0-2.0) Sodium Level 139 MMOL/L (136-145) Potassium Level 4.4 MMOL/L (3.5-5.1) Chloride Level 109 MMOL/L (98-107) H Carbon Dioxide Level 21 MMOL/L (21-32) Anion Gap 9 mmol/L (5-15) Blood Urea Nitrogen 5 mg/dL (7-18) L Creatinine 0.9 MG/DL (0.55-1.30) Estimat Glomerular Filtration Rate > 60 mL/min (>60) Glucose Level 80 MG/DL (74-106) Calcium Level 7.7 MG/DL (8.5-10.1) L Intake and Output 01/31/18 02/01/18 19:00 07:00 Intake Total 868 ml 1981 ml Output Total 2470 ml 2525 ml Balance -1602 ml -544 ml IV Total 868 ml 1981 ml Output Urine Total 2350 ml 2400 ml Stool Total 60 ml 100 ml Drainage Total 60 ml 25 ml Objective General Appearance: WD/WN, lethargic EENT: normal ENT inspection Neck: non-tender, normal alignment, supple, other - tracheostomy Cardiovascular: normal peripheral pulses, normal rate, regular rhythm, regularly irregular, no gallop/murmur, no JVD Respiratory/Chest: Mech vent; chest wall non-tender, no accessory muscle use, rhonchi - bilaterally, other - Mech Vent Abdomen: ostomy; normal bowel sounds, non tender, soft, no organomegaly, no mass Extremities: normal inspection Skin: normal pigmentation, warm/dry Assessment/Plan Problem List: (1) Incarcerated ventral hernia Assessment & Plan: S/P exploratory laparotomy on 01/19/18-see surgery note. S/P sigmoidectomy, omentectomy and hemicolectomy on 01/21/18. Continue vanco, flagyl , tigecycline and micafungin per ID (2) Volvulus of sigmoid colon (3) Abdominal distension Assessment & Plan: Resolving-see surgery note. (4) Cardiac arrest Assessment & Plan: see cardiology note (5) Seizure disorder Assessment & Plan: Continue keppra and dilantin (6) Anemia (7) Hypertension Assessment & Plan: Hypotensived. Currently on pressors. (8) Encephalopathy (9) Dysphagia (10) Tachycardia (11) Severe sepsis Assessment & Plan: See ID note. (12) Anoxic brain injury (13) Respiratory failure (14) Leukocytosis Assessment & Plan: Worsening. See ID note (15) GI bleed Assessment & Plan: See GI note. Status: not improved Assessment/Plan prognosis is guarded. Adrian Porter MD Feb 01, 2018 18:43
--- NOTE | 2018-02-01 18:43 | Cardiology Progress Note ---
Assessment/Plan Status: stable Assessment/Plan (1) Acute on chronic respiratory failure (2) Sepsis (3) Anoxic brain injury (4) Feeding by G-tube (5) Tachycardia (6) S/P exploratory laparotomy, left hemicolectomy Continue Abx No procedures indicated per GI CT abdomen reviewed Continue respiratory ventilator support G tube care Wound care per surgery Replete electrolytes, IV lactated ringers Stress steroids stopped due to rising WBC Albumin prn hypotension Pressors off Echo reviewed - stable, no heart failure No indication to start beta blockers for tachycardia, will need to closely monitor hemodynamics in setting of sepsis Replace magnesium/phosphorus - likely culprit of VT - no indication for ischemia evaluation at this juncture Monitor for signs of hyperkalemia, give bicarb, insulin, duoneb, kayexelate Poor prognosis Subjective Cardiovascular: Reports: no symptoms Respiratory: Reports: no symptoms Gastrointestinal/Abdominal: Reports: no symptoms Subjective pt. in bed obtunded, no s/s of acute cardiac or respiratory distress noted, pt. appears to be tolerating current vent settings well- AC 12, TV 600, Fio2 of 30% and peep of 5, G Tube intact and patent, Colostomy back intact, RENÉ 1 and JP2 intact and draining to gravity, Gil intact and draining to gravity, running D5NS +20KCL at 75cc/hr Objective Last 24 Hour Vital Signs Date Time Temp Pulse Resp B/P (MAP) Pulse Ox O2 Delivery O2 Flow Rate FiO2 02/01/18 16:31 71 12 30 02/01/18 16:00 98.3 82 15 133/71 (91) 94 98.3 02/01/18 16:00 30 02/01/18 16:00 81 02/01/18 16:00 Mechanical Ventilator 02/01/18 15:28 71 15 30 02/01/18 13:15 98 16 30 02/01/18 12:00 Mechanical Ventilator 02/01/18 12:00 98.0 82 12 105/80 (88) 100 98.0 02/01/18 12:00 30 02/01/18 12:00 92 02/01/18 10:58 99 13 30 02/01/18 09:06 99 14 30 02/01/18 08:00 76 02/01/18 08:00 Mechanical Ventilator 02/01/18 08:00 30 02/01/18 08:00 97.2 82 12 142/75 (97) 100 97.2 02/01/18 07:29 66 12 30 02/01/18 04:50 86 12 30 02/01/18 04:00 97.2 90 14 140/68 (92) 96 97.2 02/01/18 04:00 Mechanical Ventilator 02/01/18 04:00 30 02/01/18 04:00 97 02/01/18 02:29 97 19 30 02/01/18 01:35 87 20 30 02/01/18 00:00 Mechanical Ventilator 02/01/18 00:00 30 02/01/18 00:00 86 02/01/18 00:00 98.2 100 16 118/76 (90) 100 98.2 01/31/18 23:30 72 22 30 01/31/18 21:11 81 18 30 01/31/18 20:00 Mechanical Ventilator 01/31/18 20:00 96 01/31/18 20:00 30 01/31/18 20:00 98.4 96 20 129/64 (85) 98 98.4 General Appearance: no apparent distress, on vent EENT: PERRL/EOMI Neck: non-tender Rhythm: NSR Cardiovascular: normal peripheral pulses Respiratory/Chest: chest wall non-tender Abdomen: normal bowel sounds Extremities: normal range of motion Neurologic: psychodramatist II-XII 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 Intake and Output 01/31/18 02/01/18 19:00 07:00 Intake Total 868 ml 1981 ml Output Total 2470 ml 2525 ml Balance -1602 ml -544 ml IV Total 868 ml 1981 ml Output Urine Total 2350 ml 2400 ml Stool Total 60 ml 100 ml Drainage Total 60 ml 25 ml Laboratory Tests Test 02/01/18 02:50 White Blood Count 17.1 K/UL (4.8-10.8) H Red Blood Count 2.67 M/UL (4.20-5.40) L Hemoglobin 8.0 G/DL (12.0-16.0) L Hematocrit 24.5 % (37.0-47.0) L Mean Corpuscular Volume 92 FL (80-99) Mean Corpuscular Hemoglobin 30.2 PG (27.0-31.0) Mean Corpuscular Hemoglobin Concent 32.8 G/DL (32.0-36.0) Red Cell Distribution Width 13.1 % (11.6-14.8) Platelet Count 363 K/UL (150-450) Mean Platelet Volume 6.3 FL (6.5-10.1) L Neutrophils (%) (Auto) 72.5 % (45.0-75.0) Lymphocytes (%) (Auto) 14.0 % (20.0-45.0) L Monocytes (%) (Auto) 10.5 % (1.0-10.0) H Eosinophils (%) (Auto) 1.9 % (0.0-3.0) Basophils (%) (Auto) 1.1 % (0.0-2.0) Sodium Level 139 MMOL/L (136-145) Potassium Level 4.4 MMOL/L (3.5-5.1) Chloride Level 109 MMOL/L (98-107) H Carbon Dioxide Level 21 MMOL/L (21-32) Anion Gap 9 mmol/L (5-15) Blood Urea Nitrogen 5 mg/dL (7-18) L Creatinine 0.9 MG/DL (0.55-1.30) Estimat Glomerular Filtration Rate > 60 mL/min (>60) Glucose Level 80 MG/DL (74-106) Calcium Level 7.7 MG/DL (8.5-10.1) Rob Ness M.D. Feb 01, 2018 18:42
[2018-02-01 20:00] VITALS: BP 131/74
[2018-02-01] MEDS: Dyna-Hex 2% Top Sol 2oz TOPIC SCH (20:27)
[2018-02-02] VITALS (8 sets, daily range): BP systolic 101–140; BP diastolic 53–78
[2018-02-02 06:14] LABS: HEMATOCRIT 22.9 % (37.0-47.0); HEMOGLOBIN 7.3 G/DL (12.0-16.0); MEAN CORPUSCULAR VOLUME 93 FL (80-99); PLATELET COUNT 406 K/UL (150-450); RED BLOOD COUNT 2.47 M/UL (4.20-5.40); RED CELL DISTRIBUTION WIDTH 12.8 % (11.6-14.8); WHITE BLOOD COUNT 13.3 K/UL (4.8-10.8)
[2018-02-02 06:35] LABS: ALANINE AMINOTRANSFERASE 29 U/L (12-78); ALBUMIN 1.6 G/DL (3.4-5.0); ALBUMIN/GLOBULIN RATIO 0.3 (1.0-2.7); ALKALINE PHOSPHATASE 79 U/L (46-116); ANION GAP 7 mmol/L (5-15); ASPARTATE AMINO TRANSFERASE 30 U/L (15-37); BILIRUBIN,TOTAL 0.2 MG/DL (0.2-1.0); BLOOD UREA NITROGEN 3 mg/dL (7-18); CALCIUM 7.7 MG/DL (8.5-10.1); CARBON DIOXIDE 22 MMOL/L (21-32); CHLORIDE 111 MMOL/L (98-107); CREATININE 0.9 MG/DL (0.55-1.30); PHOSPHORUS 4.6 MG/DL (2.5-4.9); POTASSIUM 3.9 MMOL/L (3.5-5.1); SODIUM 140 MMOL/L (136-145)
[2018-02-02 08:34] LABS: HEMATOCRIT 21.5 % (37.0-47.0); MEAN CORPUSCULAR VOLUME 92 FL (80-99); PLATELET COUNT 415 K/UL (150-450); RED BLOOD COUNT 2.33 M/UL (4.20-5.40); RED CELL DISTRIBUTION WIDTH 12.8 % (11.6-14.8); WHITE BLOOD COUNT 11.6 K/UL (4.8-10.8)
[2018-02-02 08:36] LABS: HEMOGLOBIN 6.9 G/DL (12.0-16.0)
--- NOTE | 2018-02-02 09:52 | Pulmonolgy Critical Care Note ---
Critical Care - Asmt/Plan Problems: (1) Acute on chronic respiratory failure (2) Sepsis (3) Anoxic brain injury (4) Feeding by G-tube (5) Tachycardia Respiratory: monitor respiratory rate Cardiac: continue pressors, continue to monitor HR/BP Renal: F/U I&O Infectious Disease: check cultures Gastrointestinal: continue feedings/current rate Endocrine: check TSH Hematologic: transfuse if hgb<8.5 Neurologic: PRN Morphine, keep patient comfortable Prophylaxis: Protonix, Heparin Notes Reviewed: borough coordinator, renal Discussed with: case investigatoremployment manager - Objective Last 24 Hour Vital Signs Date Time Temp Pulse Resp B/P (MAP) Pulse Ox O2 Delivery O2 Flow Rate FiO2 02/02/18 08:56 80 12 40 02/02/18 08:00 99.0 113 18 126/72 (90) 100 99.0 02/02/18 08:00 30 02/02/18 08:00 Mechanical Ventilator 02/02/18 07:54 114 02/02/18 07:21 89 14 40 02/02/18 05:18 92 22 40 02/02/18 04:00 98.9 106 16 140/62 (88) 100 98.9 02/02/18 04:00 30 02/02/18 04:00 Mechanical Ventilator 02/02/18 03:29 108 02/02/18 03:14 103 18 40 02/02/18 02:01 106 22 Mechanical Ventilator 40 02/02/18 01:28 99 19 40 02/02/18 00:00 30 02/02/18 00:00 120 02/02/18 00:00 98.1 83 17 139/73 (95) 100 98.1 02/02/18 00:00 Mechanical Ventilator 02/01/18 23:29 105 23 40 02/01/18 21:01 117 22 40 02/01/18 20:00 30 02/01/18 20:00 98.1 73 22 131/74 (93) 95 98.1 02/01/18 20:00 Mechanical Ventilator 02/01/18 20:00 91 02/01/18 19:11 73 22 40 02/01/18 16:31 71 12 30 02/01/18 16:00 98.3 82 15 133/71 (91) 94 98.3 02/01/18 16:00 30 7/16/18 16:00 81 02/01/18 16:00 Mechanical Ventilator 02/01/18 15:28 71 15 30 02/01/18 13:15 98 16 30 02/01/18 12:00 Mechanical Ventilator 02/01/18 12:00 98.0 82 12 105/80 (88) 100 98.0 02/01/18 12:00 30 02/01/18 12:00 92 02/01/18 10:58 99 13 30 Status: obtunded Condition: critical HEENT: atraumatic Heart: HR/BP stable, HR/BP unstable Abdomen: soft, active bowel sounds Extremities: no C/C/E Decubiti: location Accucheck: 248 Critical Care - Subjective ROS Limited/Unobtainable: No Condition: critical EKG Rhythm: Sinus Rhythm FI02: 40 Vent Support Breath Rate: 12 Vent Support Mode: AC Vent Tidal Volume: 600 Sputum Amount: Scant PEEP: 5.0 PIP: 32 Tube Feeding Amount: 20 I&O: Intake and Output 02/01/18 02/02/18 19:00 07:00 Intake Total 1253 ml 1533 ml Output Total 5140 ml 2100 ml Balance -3887 ml -567 ml Free Water 100 ml IV Total 1253 ml 1293 ml Tube Feeding 140 ml Output Urine Total 5000 ml 2000 ml Stool Total 110 ml 100 ml Drainage Total 30 ml Labs: Laboratory Tests Test 02/02/18 04:00 02/02/18 08:25 White Blood Count 13.3 K/UL (4.8-10.8) H 11.6 K/UL (4.8-10.8) H Red Blood Count 2.47 M/UL (4.20-5.40) L 2.33 M/UL (4.20-5.40) L Hemoglobin 7.3 G/DL (12.0-16.0) L 6.9 G/DL (12.0-16.0) *L Hematocrit 22.9 % (37.0-47.0) L 21.5 % (37.0-47.0) L Mean Corpuscular Volume 93 FL (80-99) 92 FL (80-99) Mean Corpuscular Hemoglobin 29.8 PG (27.0-31.0) 29.7 PG (27.0-31.0) Mean Corpuscular Hemoglobin Concent 32.1 G/DL (32.0-36.0) 32.1 G/DL (32.0-36.0) Red Cell Distribution Width 12.8 % (11.6-14.8) 12.8 % (11.6-14.8) Platelet Count 406 K/UL (150-450) 415 K/UL (150-450) Mean Platelet Volume 6.1 FL (6.5-10.1) L 6.0 FL (6.5-10.1) L Neutrophils (%) (Auto) % (45.0-75.0) % (45.0-75.0) Lymphocytes (%) (Auto) % (20.0-45.0) % (20.0-45.0) Monocytes (%) (Auto) % (1.0-10.0) % (1.0-10.0) Eosinophils (%) (Auto) % (0.0-3.0) % (0.0-3.0) Basophils (%) (Auto) % (0.0-2.0) % (0.0-2.0) Differential Total Cells Counted 100 100 Neutrophils % (Manual) 74 % (45-75) 71 % (45-75) Lymphocytes % (Manual) 13 % (20-45) L 18 % (20-45) L Monocytes % (Manual) 9 % (1-10) 9 % (1-10) Eosinophils % (Manual) 1 % (0-3) 1 % (0-3) Basophils % (Manual) 1 % (0-2) 1 % (0-2) Band Neutrophils 2 % (0-8) 0 % (0-8) Platelet Estimate Increased H Increased H Platelet Morphology Normal Normal Hypochromasia 1+ 1+ Sodium Level 140 MMOL/L (136-145) Potassium Level 3.9 MMOL/L (3.5-5.1) Chloride Level 111 MMOL/L (98-107) H Carbon Dioxide Level 22 MMOL/L (21-32) Anion Gap 7 mmol/L (5-15) Blood Urea Nitrogen 3 mg/dL (7-18) L Creatinine 0.9 MG/DL (0.55-1.30) Estimat Glomerular Filtration Rate > 60 mL/min (>60) Glucose Level 66 MG/DL (74-106) L Calcium Level 7.7 MG/DL (8.5-10.1) L Phosphorus Level 4.6 MG/DL (2.5-4.9) Magnesium Level 1.3 MG/DL (1.8-2.4) L Total Bilirubin 0.2 MG/DL (0.2-1.0) Aspartate Amino Transf (AST/SGOT) 30 U/L (15-37) Alanine Aminotransferase (ALT/SGPT) 29 U/L (12-78) Alkaline Phosphatase 79 U/L (46-116) Total Protein 6.6 G/DL (6.4-8.2) Albumin 1.6 G/DL (3.4-5.0) L Globulin 5.0 g/dL Albumin/Globulin Ratio 0.3 (1.0-2.7) L Yanick Hernandez MD Feb 02, 2018 09:52
[2018-02-02] MEDS: Pantoprazole Inj IV SCH ×2 (10:04→20:42)
[2018-02-02] MEDS: Heparin 5000 units/ml inj SUBQ SCH ×2 (10:07→20:47)
[2018-02-02] MEDS: levETIRAcetam 1,000mg/NS100ml 100 ML IVPB SCH ×2 (10:11→20:43)
[2018-02-02] MEDS: PHENYTOIN IVPB SCH ×2 (10:12→21:07)
[2018-02-02] MEDS: Vancomycin oral 125mg/2.5ml ORAL SCH ×4 (10:12→20:42)
[2018-02-02] MEDS: NS IVPB SCH ×2 (10:12→21:07)
--- NOTE | 2018-02-02 10:41 | General Progress Note ---
Progress Note Progress Note Surgery: overall improving. leukocytosis improving. drains removed ostomy functional wound healing cont with wound care. okay for placement from surgical standpoint Marshall Ferguson Feb 02, 2018 10:41
--- NOTE | 2018-02-02 11:05 | Diagnostic Imaging Report ---
Indication: Dyspnea Comparison: 01/29/2018 A single view chest radiograph was obtained. Findings: Tracheostomy and PICC line are stable. Heart is mildly enlarged but stable. Patchy right basilar atelectasis and/or pneumonia may be present. Correlate clinically. IMPRESSION: Patchy right basilar lung disease. Consider pneumonia or atelectasis
[2018-02-02] MEDS: Cefepime HCl 1 GM in D5W 110 ML IVPB SCH ×2 (11:24→20:44)
--- NOTE | 2018-02-02 12:23 | Infectious Diseases Prog Note ---
Assessment/Plan Assessment/Plan Assessment: Septic shock,SP ; resolved after surgical exploration- 2ry intraabdominal source- (intra-abdominal peritonitis 2ry to malpositioned gastric feeding tube, incarcerated fat containing ventral hernia and likely sigmoid volvulus) --SP Re-exploration of abdomen, Sigmoid colectomy for volvulus, Takedown of splenic flexure, Left hemicolectomy, Creation of transverse colostomy, Abdominal closure 01/21 -OR findings: no further leakage of gastric contents or feeds. No bleeding. sigmoid colon remained significantly distended despite rectal tube placement and prior decompression. Sigmoid colon easily volvulized intraoperatively. --SP Exploratory laparotomy, Abdominal washout, G-tube replacement, wound vac placment, Excision of incarcerated ventral hernia, and Reduction of sigmoid volvulus 01/19 --no perforation or gross necrosis noted upon surgical exploration --abd fluid cx anerobic Neg; aerobic P. mirabilis (I Cipro, otherwise S), Serratia liquefences (R ancef, levo; otherwise S), CONS -No obvious pathology on lungs on CXR. r/o UTI -Bcx 2/4 Diptheroids, 1/4 CONS (contaminants), Aerococcus sp (typically a urinary pathogen; S Vanco, Ceftriaxone, PNC), ?UTI (often is not isolated from urine culture given special media requirements) -u/a initial normal; repeat WBC 10-15, nit +, leuk +1 but sq cells mod ( contaminated); ucx NTD -CXR: Hyperlucent the upper abdomen. Free air not excluded. Correlate clinically. Distended bowel also noted. No acute disease within the chest. Tracheostomy -CRP impoved (now 7) -Lipase ~1k Fever, Sp Leukocytosis (peak to 40s; now resoling)-Supect Cdiff (increased foul smelling ostomy output, dilation of bowels, no obvious abscess on limited CT). Likely Pancreatitis (elevated Lipase);a also GIB colntributing -KUB 01/27 Moderate stool in the rectal vault but overall improved compared to the last study done on January 18, 2018. -01/27, 01/29 Bcx NTD Diarrhea CDiff toxin A/B EIA neg (this test ahs low sensitivity); still suspect Cdiff -CT chest/abd/p 01/24: Very limited examination due to the lack of intravenous and oral contrast administration. Status post recent abdominal surgery with open anterior abdominal incision still noted. No abscess. Suggestion of dilatation of multiple loops of small bowel, not evaluated well on this examination. Findings may be due to postoperative ileus. Obstruction is not excludable. Left lower quadrant ostomy noted. Small bilateral pleural effusions and posterior basal atelectasis. Tracheostomy, PICC line, gastrostomy, Rock catheter is in good position. Moderate fecal retention in the rectum which is distended. Anasarca. -CXR: Question of new pneumomediastinum along the left heart margin. Question whether the tracheostomy is appropriately sealed. Basilar opacities again noted, increased on the left. Some of this could be due to differences in positioning, but question increasing pleural fluid and associated atelectasis/consolidation. Right-sided opacity is stable. ?Pneumomediastinum- not see on CT chest Elevated CPK- resolved -Dapto d/c 01/21 POssible PNA- -CXR 02/02: Patchy right basilar lung disease. Consider pneumonia or atelectasis -CXR 01/29Worsening of aeration with increased opacification at the right base which may related to small layering pleural effusion, atelectasis and/or pneumonia. -sp cx MDR ABC ( S Bactrim, Tigecycline, Colistin, Polymixin B), E.coli #2 ( S. Ceftriaxone, Cefepime; R Zosyn); repeat 01/24 sp cx MDR ABC, MDR PsA (S Cefepime) GIB Acute blood loss anemia Bradycardia> Asystolic cardiac arrest Acute on chronic respirator failure Lactic acidosis; resolved INDIRA; improving HTN seizure disorder anoxic brain injury 2014 chronic resp failure trach/vent dependant 2014 s/p G-tube 2015 SNF resident Plan: -Continue Tigecycline # /-14 (abx d# /-) for intra-abdominal and MDR ABC in sputum coverage and synergistic for possible Cdiff -Continue IV Cefepime # /-10 for MDR PsA in repeat sp cx -Continue empiric PO Vancomycin # 04/02 and IV Flagyl # / for suspected severe CDiff -01/27 SP Micafungin #10 -7/ SP IV Vancomycin #6, PO Bactrim #5 -7/ SP Meropenem #8 -7/ SP Daptomycin #4 (d/c due to elevated CPK) -01/18 SP IV Vancomycin #1, Cefepime x1, Azithromycin x1, Zosyn x1 -f/u Bcx x2 (peripheral and PICC) -Monitor CBC/BMP, temperatures -Trend WBC -Surgery, GI following -wound care per hospital protocol -Cdiff precautions Subjective Allergies: Coded Allergies: No Known Allergies (Unverified , 01/18/15) Subjective afebrile in 48hrs leukocytosis improving tachycardic resolved Hgb improved to 8 repeat Bcx NTD output drain RENÉ decreasing Objective Vital Signs Last 24 Hour Vital Signs Date Time Temp Pulse Resp B/P (MAP) Pulse Ox O2 Delivery O2 Flow Rate FiO2 02/02/18 10:58 83 14 40 02/02/18 08:56 80 12 40 02/02/18 08:00 99.0 113 18 126/72 (90) 100 99.0 02/02/18 08:00 30 02/02/18 08:00 Mechanical Ventilator 02/02/18 07:54 114 02/02/18 07:21 89 14 40 02/02/18 05:18 92 22 40 02/02/18 04:00 98.9 106 16 140/62 (88) 100 98.9 02/02/18 04:00 30 02/02/18 04:00 Mechanical Ventilator 02/02/18 03:29 108 02/02/18 03:14 103 18 40 02/02/18 02:01 106 22 Mechanical Ventilator 40 02/02/18 01:28 99 19 40 02/02/18 00:00 30 02/02/18 00:00 120 02/02/18 00:00 98.1 83 17 139/73 (95) 100 98.1 02/02/18 00:00 Mechanical Ventilator 02/01/18 23:29 105 23 40 02/01/18 21:01 117 22 40 02/01/18 20:00 30 02/01/18 20:00 98.1 73 22 131/74 (93) 95 98.1 02/01/18 20:00 Mechanical Ventilator 02/01/18 20:00 91 02/01/18 19:11 73 22 40 02/01/18 16:31 71 12 30 02/01/18 16:00 98.3 82 15 133/71 (91) 94 98.3 02/01/18 16:00 30 02/01/18 16:00 81 02/01/18 16:00 Mechanical Ventilator 02/01/18 15:28 71 15 30 02/01/18 13:15 98 16 30 Height (Feet): 5 Height (Inches): 3.00 Weight (Pounds): 188 Objective General Appearance: chronically ill HEENT: normocephalic, bilateral eye PERRL Neck: tracheotomy Respiratory: crackles, rhonchi Cardiovascular : tachycardia Gastrointestinal: Gtube present; significant abd distention with some grimacing upon palpation; diminished to absent bowel sounds Genitourinary: rock in place Musculoskeletal: other - contracted extremities Neurologic: other - nonverbal Skin: no rash or cellulitis Laboratory Tests Test 02/02/18 04:00 02/02/18 08:25 White Blood Count 13.3 K/UL (4.8-10.8) H 11.6 K/UL (4.8-10.8) H Red Blood Count 2.47 M/UL (4.20-5.40) L 2.33 M/UL (4.20-5.40) L Hemoglobin 7.3 G/DL (12.0-16.0) L 6.9 G/DL (12.0-16.0) *L Hematocrit 22.9 % (37.0-47.0) L 21.5 % (37.0-47.0) L Mean Corpuscular Volume 93 FL (80-99) 92 FL (80-99) Mean Corpuscular Hemoglobin 29.8 PG (27.0-31.0) 29.7 PG (27.0-31.0) Mean Corpuscular Hemoglobin Concent 32.1 G/DL (32.0-36.0) 32.1 G/DL (32.0-36.0) Red Cell Distribution Width 12.8 % (11.6-14.8) 12.8 % (11.6-14.8) Platelet Count 406 K/UL (150-450) 415 K/UL (150-450) Mean Platelet Volume 6.1 FL (6.5-10.1) L 6.0 FL (6.5-10.1) L Neutrophils (%) (Auto) % (45.0-75.0) % (45.0-75.0) Lymphocytes (%) (Auto) % (20.0-45.0) % (20.0-45.0) Monocytes (%) (Auto) % (1.0-10.0) % (1.0-10.0) Eosinophils (%) (Auto) % (0.0-3.0) % (0.0-3.0) Basophils (%) (Auto) % (0.0-2.0) % (0.0-2.0) Differential Total Cells Counted 100 100 Neutrophils % (Manual) 74 % (45-75) 71 % (45-75) Lymphocytes % (Manual) 13 % (20-45) L 18 % (20-45) L Monocytes % (Manual) 9 % (1-10) 9 % (1-10) Eosinophils % (Manual) 1 % (0-3) 1 % (0-3) Basophils % (Manual) 1 % (0-2) 1 % (0-2) Band Neutrophils 2 % (0-8) 0 % (0-8) Platelet Estimate Increased H Increased H Platelet Morphology Normal Normal Hypochromasia 1+ 1+ Sodium Level 140 MMOL/L (136-145) Potassium Level 3.9 MMOL/L (3.5-5.1) Chloride Level 111 MMOL/L (98-107) H Carbon Dioxide Level 22 MMOL/L (21-32) Anion Gap 7 mmol/L (5-15) Blood Urea Nitrogen 3 mg/dL (7-18) L Creatinine 0.9 MG/DL (0.55-1.30) Estimat Glomerular Filtration Rate > 60 mL/min (>60) Glucose Level 66 MG/DL (74-106) L Calcium Level 7.7 MG/DL (8.5-10.1) L Phosphorus Level 4.6 MG/DL (2.5-4.9) Magnesium Level 1.3 MG/DL (1.8-2.4) L Total Bilirubin 0.2 MG/DL (0.2-1.0) Aspartate Amino Transf (AST/SGOT) 30 U/L (15-37) Alanine Aminotransferase (ALT/SGPT) 29 U/L (12-78) Alkaline Phosphatase 79 U/L (46-116) Total Protein 6.6 G/DL (6.4-8.2) Albumin 1.6 G/DL (3.4-5.0) L Globulin 5.0 g/dL Albumin/Globulin Ratio 0.3 (1.0-2.7) L Current Medications Medications (Trade) Dose Ordered Sig/Kel Route PRN Reason Start Time Stop Time Status Last Admin Dose Admin Acetaminophen (Tylenol) 650 mg Q4H PRN ORAL FEVER 01/28/18 05:52 02/17/18 05:51 01/30/18 02:27 Cefepime HCl 1 gm/ Dextrose 110 ml @ 220 mls/hr EVERY 12 HOURS IVPB 01/28/18 21:00 02/04/18 20:59 02/02/18 11:24 Chlorhexidine Gluconate (Neela-Hex 2%) 1 applic DAILY@2000 TOPIC 01/28/18 20:00 02/19/18 19:59 02/01/18 20:27 Dextrose (Dextrose 50%) 25 ml STAT PRN IV Hypoglycemia 01/28/18 13:00 02/27/18 12:59 Dextrose (Dextrose 50%) 50 ml STAT PRN IV Hypoglycemia 01/28/18 13:00 02/27/18 12:59 Dextrose/Sodium Chloride 1,000 ml @ 75 mls/hr [id number] IV 01/31/18 09:00 03/02/18 08:59 02/01/18 15:37 Heparin Sodium (Porcine) (Heparin 5000 units/ml) 5,000 units EVERY 12 HOURS SUBQ 01/28/18 21:00 02/17/18 08:59 02/02/18 10:07 Levetiracetam 100 ml @ 400 mls/hr Q12HR IVPB 01/28/18 21:00 02/17/18 22:29 02/02/18 10:11 Metronidazole 100 ml @ 100 mls/hr Q8HR IVPB 02/02/18 14:00 02/09/18 13:59 Ondansetron HCl (Zofran) 4 mg Q6H PRN IVP Nausea & Vomiting 01/28/18 13:15 02/17/18 07:14 Pantoprazole (Protonix) 40 mg Q12HR IV 01/28/18 21:00 02/17/18 08:59 02/02/18 10:04 Phenytoin 150 mg/ Sodium Chloride 58 ml @ 114 mls/hr EVERY 12 HOURS IVPB 01/28/18 21:00 02/17/18 22:29 02/02/18 10:12 Polyethylene Glycol (Miralax) 17 gm DAILYPRN PRN ORAL Constipation 01/29/18 13:00 02/17/18 12:59 Tigecycline 50 mg/ Dextrose 110 ml @ 220 mls/hr EVERY 12 HOURS IVPB 02/02/18 13:00 02/09/18 12:59 Vancomycin HCl (Vancomycin) 125 mg FOUR TIMES A DAY ORAL 01/28/18 13:00 02/06/18 12:59 02/02/18 10:12 Amelia Bah M.D. Feb 02, 2018 12:23
[2018-02-02] MEDS: Tigecycline 50 MG in D5W 110 ML IVPB SCH ×2 (12:49→20:44)
--- NOTE | 2018-02-02 15:18 | GI Progress Note ---
Assessment/Plan Problems: (1) GI bleed ICD Codes: K92.2 - Gastrointestinal hemorrhage, unspecified SNOMED: 32999347 (2) Feeding by G-tube ICD Codes: Z93.1 - Feeding by G-tube SNOMED: 101193327 (3) Anoxic brain injury ICD Codes: G93.1 - Anoxic brain injury SNOMED: 529583741 (4) Severe sepsis ICD Codes: A41.9 - Sepsis, unspecified organism; R65.20 - Severe sepsis without septic shock SNOMED: 58026113 (5) Anemia ICD Codes: D64.9 - Anemia SNOMED: 029665924 Status: deteriorating Status Narrative Discussed with Dr. Reese. Assessment/Plan anemia work up reviewed - folate deficiency - no iron deficiency - downtrending H&H continues to have severe anemia with no s/sx of active bleeding cdiff negative lipase elevation >> resolved gastric lavage >> no heme noted normal coags colostomy drainage >> previous noted with blood, now brown. defer any GI procedures given recent surgery restart GTFs IV hydration + electrolyte correction monitor H&H, transfuse prn per hematology folate ppi BID fu labs The patient was seen and examined at bedside and all new and available data was reviewed in the patients chart. I agree with the above findings, impression and plan. (Patient seen earlier today. Signature stamp does not reflect patient encounter time.). - Baldemar Reese MD Subjective Subjective limited Objective Last 24 Hour Vital Signs Date Time Temp Pulse Resp B/P (MAP) Pulse Ox O2 Delivery O2 Flow Rate FiO2 02/02/18 12:58 84 12 40 02/02/18 12:00 Mechanical Ventilator 02/02/18 12:00 30 02/02/18 12:00 99.0 100 13 101/60 (74) 100 99.0 02/02/18 11:44 90 02/02/18 10:58 83 14 40 02/02/18 08:56 80 12 40 02/02/18 08:00 99.0 113 18 126/72 (90) 100 99.0 02/02/18 08:00 30 02/02/18 08:00 Mechanical Ventilator 02/02/18 07:54 114 02/02/18 07:21 89 14 40 02/02/18 05:18 92 22 40 02/02/18 04:00 98.9 106 16 140/62 (88) 100 98.9 02/02/18 04:00 30 02/02/18 04:00 Mechanical Ventilator 02/02/18 03:29 108 02/02/18 03:14 103 18 40 02/02/18 02:01 106 22 Mechanical Ventilator 40 02/02/18 01:28 99 19 40 02/02/18 00:00 30 02/02/18 00:00 120 02/02/18 00:00 98.1 83 17 139/73 (95) 100 98.1 02/02/18 00:00 Mechanical Ventilator 02/01/18 23:29 105 23 40 02/01/18 21:01 117 22 40 02/01/18 20:00 30 02/01/18 20:00 98.1 73 22 131/74 (93) 95 98.1 02/01/18 20:00 Mechanical Ventilator 02/01/18 20:00 91 02/01/18 19:11 73 22 40 02/01/18 16:31 71 12 30 02/01/18 16:00 98.3 82 15 133/71 (91) 94 98.3 02/01/18 16:00 30 02/01/18 16:00 81 02/01/18 16:00 Mechanical Ventilator 02/01/18 15:28 71 15 30 Intake and Output 02/01/18 02/02/18 19:00 07:00 Intake Total 1253 ml 1533 ml Output Total 5140 ml 2100 ml Balance -3887 ml -567 ml Free Water 100 ml IV Total 1253 ml 1293 ml Tube Feeding 140 ml Output Urine Total 5000 ml 2000 ml Stool Total 110 ml 100 ml Drainage Total 30 ml Laboratory Tests Test 02/02/18 04:00 02/02/18 08:25 White Blood Count 13.3 K/UL (4.8-10.8) H 11.6 K/UL (4.8-10.8) H Red Blood Count 2.47 M/UL (4.20-5.40) L 2.33 M/UL (4.20-5.40) L Hemoglobin 7.3 G/DL (12.0-16.0) L 6.9 G/DL (12.0-16.0) *L Hematocrit 22.9 % (37.0-47.0) L 21.5 % (37.0-47.0) L Mean Corpuscular Volume 93 FL (80-99) 92 FL (80-99) Mean Corpuscular Hemoglobin 29.8 PG (27.0-31.0) 29.7 PG (27.0-31.0) Mean Corpuscular Hemoglobin Concent 32.1 G/DL (32.0-36.0) 32.1 G/DL (32.0-36.0) Red Cell Distribution Width 12.8 % (11.6-14.8) 12.8 % (11.6-14.8) Platelet Count 406 K/UL (150-450) 415 K/UL (150-450) Mean Platelet Volume 6.1 FL (6.5-10.1) L 6.0 FL (6.5-10.1) L Neutrophils (%) (Auto) % (45.0-75.0) % (45.0-75.0) Lymphocytes (%) (Auto) % (20.0-45.0) % (20.0-45.0) Monocytes (%) (Auto) % (1.0-10.0) % (1.0-10.0) Eosinophils (%) (Auto) % (0.0-3.0) % (0.0-3.0) Basophils (%) (Auto) % (0.0-2.0) % (0.0-2.0) Differential Total Cells Counted 100 100 Neutrophils % (Manual) 74 % (45-75) 71 % (45-75) Lymphocytes % (Manual) 13 % (20-45) L 18 % (20-45) L Monocytes % (Manual) 9 % (1-10) 9 % (1-10) Eosinophils % (Manual) 1 % (0-3) 1 % (0-3) Basophils % (Manual) 1 % (0-2) 1 % (0-2) Band Neutrophils 2 % (0-8) 0 % (0-8) Platelet Estimate Increased H Increased H Platelet Morphology Normal Normal Hypochromasia 1+ 1+ Sodium Level 140 MMOL/L (136-145) Potassium Level 3.9 MMOL/L (3.5-5.1) Chloride Level 111 MMOL/L (98-107) H Carbon Dioxide Level 22 MMOL/L (21-32) Anion Gap 7 mmol/L (5-15) Blood Urea Nitrogen 3 mg/dL (7-18) L Creatinine 0.9 MG/DL (0.55-1.30) Estimat Glomerular Filtration Rate > 60 mL/min (>60) Glucose Level 66 MG/DL (74-106) L Calcium Level 7.7 MG/DL (8.5-10.1) L Phosphorus Level 4.6 MG/DL (2.5-4.9) Magnesium Level 1.3 MG/DL (1.8-2.4) L Total Bilirubin 0.2 MG/DL (0.2-1.0) Aspartate Amino Transf (AST/SGOT) 30 U/L (15-37) Alanine Aminotransferase (ALT/SGPT) 29 U/L (12-78) Alkaline Phosphatase 79 U/L (46-116) Total Protein 6.6 G/DL (6.4-8.2) Albumin 1.6 G/DL (3.4-5.0) L Globulin 5.0 g/dL Albumin/Globulin Ratio 0.3 (1.0-2.7) L Height (Feet): 5 Height (Inches): 3.00 Weight (Pounds): 188 General Appearance: no apparent distress, alert Cardiovascular: normal rate Respiratory/Chest: normal breath sounds, no respiratory distress, other - mech vent Abdominal Exam: normal bowel sounds, non tender, soft, GT site - c/d/i, other - colostomy Extremities: non-tender Ron Mead [employer] A[employer]LY[employer] Feb 02, 2018 15:18
--- NOTE | 2018-02-02 15:45 | General Progress Note ---
Assessment/Plan Status: unchanged Assessment/Plan #. Leukocytosis, likely due to infection, peritonitis, now better --> The patient with lactic acidosis. Lactic acid 7.4. --> Currently on pressors. Rule out infectious etiology. --> On broad-spectrum antibiotics and antifungals. --> Closely monitor for improvement. #. Anemia currently due to blood loss from surgery in addition to hemodilution --> cr goal is >7 --> jak2 level pending under serology as she had erythrocytosis on presentation --> anemia w/u has been reviewed, will trend daily. --> Transfuse as needed. --> 02/02 hgb at 6.9, 1 unit prbc ordered. #. Coagulopathy with inr 1.6 likely due to malnutrition v dic --> obtain a mixing study #. Septic shock, closely monitor, --> on antibiotics, broad spectrum. #. Seizure disorder, currently on antiseizure medication. #. Respiratory failure, status post trach and vent. #. Dysphagia, status post gastrostomy tube. The time the note was entered does not necessarily correspond to the time the patient was seen. Subjective Date patient seen: Feb 02, 2018 ROS Limited/Unobtainable: Yes Hematologic/Lymphatic: Reports: anemia Allergies: Coded Allergies: No Known Allergies (Unverified , 01/18/15) All Systems: reviewed and negative except above Subjective Hgb at 6.9, 1 unit prbc ordered. CXR shows patchy right basilar lung disease Objective Last 24 Hour Vital Signs Date Time Temp Pulse Resp B/P (MAP) Pulse Ox O2 Delivery O2 Flow Rate FiO2 02/02/18 12:58 84 12 40 02/02/18 12:00 Mechanical Ventilator 02/02/18 12:00 30 02/02/18 12:00 99.0 100 13 101/60 (74) 100 99.0 02/02/18 11:44 90 02/02/18 10:58 83 14 40 02/02/18 08:56 80 12 40 02/02/18 08:00 99.0 113 18 126/72 (90) 100 99.0 02/02/18 08:00 30 02/02/18 08:00 Mechanical Ventilator 02/02/18 07:54 114 02/02/18 07:21 89 14 40 02/02/18 05:18 92 22 40 02/02/18 04:00 98.9 106 16 140/62 (88) 100 98.9 02/02/18 04:00 30 02/02/18 04:00 Mechanical Ventilator 02/02/18 03:29 108 02/02/18 03:14 103 18 40 02/02/18 02:01 106 22 Mechanical Ventilator 40 02/02/18 01:28 99 19 40 02/02/18 00:00 30 02/02/18 00:00 120 02/02/18 00:00 98.1 83 17 139/73 (95) 100 98.1 02/02/18 00:00 Mechanical Ventilator 02/01/18 23:29 105 23 40 02/01/18 21:01 117 22 40 02/01/18 20:00 30 02/01/18 20:00 98.1 73 22 131/74 (93) 95 98.1 02/01/18 20:00 Mechanical Ventilator 02/01/18 20:00 91 02/01/18 19:11 73 22 40 02/01/18 16:31 71 12 30 02/01/18 16:00 98.3 82 15 133/71 (91) 94 98.3 02/01/18 16:00 30 02/01/18 16:00 81 02/01/18 16:00 Mechanical Ventilator Intake and Output 02/01/18 02/02/18 19:00 07:00 Intake Total 1253 ml 1533 ml Output Total 5140 ml 2100 ml Balance -3887 ml -567 ml Free Water 100 ml IV Total 1253 ml 1293 ml Tube Feeding 140 ml Output Urine Total 5000 ml 2000 ml Stool Total 110 ml 100 ml Drainage Total 30 ml Laboratory Tests 02/02/18 04:00: White Blood Count 13.3H, Red Blood Count 2.47L, Hemoglobin 7.3L, Hematocrit 22.9L, Mean Corpuscular Volume 93, Mean Corpuscular Hemoglobin 29.8, Mean Corpuscular Hemoglobin Concent 32.1, Red Cell Distribution Width 12.8, Platelet Count 406, Mean Platelet Volume 6.1L, Neutrophils (%) (Auto) , Lymphocytes (%) ( Auto) , Monocytes (%) (Auto) , Eosinophils (%) (Auto) , Basophils (%) (Auto) , Differential Total Cells Counted 100, Neutrophils % (Manual) 74, Lymphocytes % ( Manual) 13L, Monocytes % (Manual) 9, Eosinophils % (Manual) 1, Basophils % ( Manual) 1, Band Neutrophils 2, Platelet Estimate IncreasedH, Platelet Morphology Normal, Hypochromasia 1+, Sodium Level 140, Potassium Level 3.9, Chloride Level 111H, Carbon Dioxide Level 22, Anion Gap 7, Blood Urea Nitrogen 3L, Creatinine 0.9, Estimat Glomerular Filtration Rate > 60, Glucose Level 66L, Calcium Level 7.7L, Phosphorus Level 4.6, Magnesium Level 1.3L, Total Bilirubin 0.2, Aspartate Amino Transf (AST/SGOT) 30, Alanine Aminotransferase (ALT/SGPT) 29, Alkaline Phosphatase 79, Total Protein 6.6, Albumin 1.6L, Globulin 5.0, Albumin/Globulin Ratio 0.3L 02/02/18 08:25: White Blood Count 11.6H, Red Blood Count 2.33L, Hemoglobin 6.9*L, Hematocrit 21.5L, Mean Corpuscular Volume 92, Mean Corpuscular Hemoglobin 29.7, Mean Corpuscular Hemoglobin Concent 32.1, Red Cell Distribution Width 12.8, Platelet Count 415, Mean Platelet Volume 6.0L, Neutrophils (%) (Auto) , Lymphocytes (%) ( Auto) , Monocytes (%) (Auto) , Eosinophils (%) (Auto) , Basophils (%) (Auto) , Differential Total Cells Counted 100, Neutrophils % (Manual) 71, Lymphocytes % ( Manual) 18L, Monocytes % (Manual) 9, Eosinophils % (Manual) 1, Basophils % ( Manual) 1, Band Neutrophils 0, Platelet Estimate IncreasedH, Platelet Morphology Normal, Hypochromasia 1+ Height (Feet): 5 Height (Inches): 3.00 Weight (Pounds): 188 General Appearance: no apparent distress EENT: PERRL/EOMI Neck: normal alignment Cardiovascular: normal peripheral pulses Respiratory/Chest: no respiratory distress Abdomen: normal bowel sounds Isaiah Noriega MD Feb 02, 2018 15:45
--- NOTE | 2018-02-02 15:49 | Cardiology Progress Note ---
Assessment/Plan Status: stable, progressing Assessment/Plan (1) Acute on chronic respiratory failure (2) Sepsis (3) Anoxic brain injury (4) Feeding by G-tube (5) Tachycardia (6) S/P exploratory laparotomy, left hemicolectomy Continue Abx No procedures indicated per GI Continue respiratory ventilator support G tube care Wound care per surgery - drains removed, ostomy pink Echo reviewed - stable, no heart failure Ok to transfer to SNF when available Subjective Cardiovascular: Reports: no symptoms Respiratory: Reports: no symptoms Gastrointestinal/Abdominal: Reports: no symptoms Genitourinary: Reports: no symptoms Subjective pt. in bed obtunded, no s/s of acute cardiac or respiratory distress noted, pt. appears to be tolerating current vent settings well- AC 12, TV 600, Fio2 of 30% and peep of 5, G Tube intact and patent, Colostomy back intact, Drains removed WBC now normal Objective Last 24 Hour Vital Signs Date Time Temp Pulse Resp B/P (MAP) Pulse Ox O2 Delivery O2 Flow Rate FiO2 02/02/18 12:58 84 12 40 02/02/18 12:00 Mechanical Ventilator 02/02/18 12:00 30 02/02/18 12:00 99.0 100 13 101/60 (74) 100 99.0 02/02/18 11:44 90 02/02/18 10:58 83 14 40 02/02/18 08:56 80 12 40 02/02/18 08:00 99.0 113 18 126/72 (90) 100 99.0 02/02/18 08:00 30 02/02/18 08:00 Mechanical Ventilator 02/02/18 07:54 114 02/02/18 07:21 89 14 40 02/02/18 05:18 92 22 40 02/02/18 04:00 98.9 106 16 140/62 (88) 100 98.9 02/02/18 04:00 30 02/02/18 04:00 Mechanical Ventilator 02/02/18 03:29 108 02/02/18 03:14 103 18 40 02/02/18 02:01 106 22 Mechanical Ventilator 40 02/02/18 01:28 99 19 40 02/02/18 00:00 30 02/02/18 00:00 120 02/02/18 00:00 98.1 83 17 139/73 (95) 100 98.1 02/02/18 00:00 Mechanical Ventilator 02/01/18 23:29 105 23 40 02/01/18 21:01 117 22 40 02/01/18 20:00 30 02/01/18 20:00 98.1 73 22 131/74 (93) 95 98.1 02/01/18 20:00 Mechanical Ventilator 02/01/18 20:00 91 02/01/18 19:11 73 22 40 02/01/18 16:31 71 12 30 02/01/18 16:00 98.3 82 15 133/71 (91) 94 98.3 02/01/18 16:00 30 02/01/18 16:00 81 02/01/18 16:00 Mechanical Ventilator General Appearance: no apparent distress, on vent EENT: PERRL/EOMI Neck: non-tender Cardiovascular: normal peripheral pulses Respiratory/Chest: chest wall non-tender Abdomen: normal bowel sounds Extremities: normal range of motion Neurologic: abnormal CN Intake and Output 02/01/18 02/02/18 19:00 07:00 Intake Total 1253 ml 1533 ml Output Total 5140 ml 2100 ml Balance -3887 ml -567 ml Free Water 100 ml IV Total 1253 ml 1293 ml Tube Feeding 140 ml Output Urine Total 5000 ml 2000 ml Stool Total 110 ml 100 ml Drainage Total 30 ml Laboratory Tests Test 02/02/18 04:00 02/02/18 08:25 White Blood Count 13.3 K/UL (4.8-10.8) H 11.6 K/UL (4.8-10.8) H Red Blood Count 2.47 M/UL (4.20-5.40) L 2.33 M/UL (4.20-5.40) L Hemoglobin 7.3 G/DL (12.0-16.0) L 6.9 G/DL (12.0-16.0) *L Hematocrit 22.9 % (37.0-47.0) L 21.5 % (37.0-47.0) L Mean Corpuscular Volume 93 FL (80-99) 92 FL (80-99) Mean Corpuscular Hemoglobin 29.8 PG (27.0-31.0) 29.7 PG (27.0-31.0) Mean Corpuscular Hemoglobin Concent 32.1 G/DL (32.0-36.0) 32.1 G/DL (32.0-36.0) Red Cell Distribution Width 12.8 % (11.6-14.8) 12.8 % (11.6-14.8) Platelet Count 406 K/UL (150-450) 415 K/UL (150-450) Mean Platelet Volume 6.1 FL (6.5-10.1) L 6.0 FL (6.5-10.1) L Neutrophils (%) (Auto) % (45.0-75.0) % (45.0-75.0) Lymphocytes (%) (Auto) % (20.0-45.0) % (20.0-45.0) Monocytes (%) (Auto) % (1.0-10.0) % (1.0-10.0) Eosinophils (%) (Auto) % (0.0-3.0) % (0.0-3.0) Basophils (%) (Auto) % (0.0-2.0) % (0.0-2.0) Differential Total Cells Counted 100 100 Neutrophils % (Manual) 74 % (45-75) 71 % (45-75) Lymphocytes % (Manual) 13 % (20-45) L 18 % (20-45) L Monocytes % (Manual) 9 % (1-10) 9 % (1-10) Eosinophils % (Manual) 1 % (0-3) 1 % (0-3) Basophils % (Manual) 1 % (0-2) 1 % (0-2) Band Neutrophils 2 % (0-8) 0 % (0-8) Platelet Estimate Increased H Increased H Platelet Morphology Normal Normal Hypochromasia 1+ 1+ Sodium Level 140 MMOL/L (136-145) Potassium Level 3.9 MMOL/L (3.5-5.1) Chloride Level 111 MMOL/L (98-107) H Carbon Dioxide Level 22 MMOL/L (21-32) Anion Gap 7 mmol/L (5-15) Blood Urea Nitrogen 3 mg/dL (7-18) L Creatinine 0.9 MG/DL (0.55-1.30) Estimat Glomerular Filtration Rate > 60 mL/min (>60) Glucose Level 66 MG/DL (74-106) L Calcium Level 7.7 MG/DL (8.5-10.1) L Phosphorus Level 4.6 MG/DL (2.5-4.9) Magnesium Level 1.3 MG/DL (1.8-2.4) L Total Bilirubin 0.2 MG/DL (0.2-1.0) Aspartate Amino Transf (AST/SGOT) 30 U/L (15-37) Alanine Aminotransferase (ALT/SGPT) 29 U/L (12-78) Alkaline Phosphatase 79 U/L (46-116) Total Protein 6.6 G/DL (6.4-8.2) Albumin 1.6 G/DL (3.4-5.0) L Globulin 5.0 g/dL Albumin/Globulin Ratio 0.3 (1.0-2.7) L Rob Cote M.D. Feb 02, 2018 15:49
[2018-02-02] MEDS: D5NS 1,000 ML IV SCH (18:45)
--- NOTE | 2018-02-02 18:50 | Internal Med Progress Note ---
Subjective Date of Service: Feb 02, 2018 Physician Name Adrian Porter Attending Physician Guillermo Morel MD Current Medications Medications (Trade) Dose Ordered Sig/Kel Route PRN Reason Start Time Stop Time Status Last Admin Dose Admin Acetaminophen (Tylenol) 650 mg Q4H PRN ORAL FEVER 01/28/18 05:52 02/17/18 05:51 01/30/18 02:27 Cefepime HCl 1 gm/ Dextrose 110 ml @ 220 mls/hr EVERY 12 HOURS IVPB 01/28/18 21:00 02/04/18 20:59 02/02/18 11:24 Chlorhexidine Gluconate (Neela-Hex 2%) 1 applic DAILY@2000 TOPIC 01/28/18 20:00 02/19/18 19:59 02/01/18 20:27 Dextrose (Dextrose 50%) 25 ml STAT PRN IV Hypoglycemia 01/28/18 13:00 02/27/18 12:59 Dextrose (Dextrose 50%) 50 ml STAT PRN IV Hypoglycemia 01/28/18 13:00 02/27/18 12:59 Dextrose/Sodium Chloride 1,000 ml @ 75 mls/hr [id number] IV 01/31/18 09:00 03/02/18 08:59 02/02/18 18:45 Heparin Sodium (Porcine) (Heparin 5000 units/ml) 5,000 units EVERY 12 HOURS SUBQ 01/28/18 21:00 02/17/18 08:59 02/02/18 10:07 Levetiracetam 100 ml @ 400 mls/hr Q12HR IVPB 01/28/18 21:00 02/17/18 22:29 02/02/18 10:11 Metronidazole 100 ml @ 100 mls/hr Q8HR IVPB 02/02/18 14:00 02/09/18 13:59 02/02/18 13:24 Ondansetron HCl (Zofran) 4 mg Q6H PRN IVP Nausea & Vomiting 01/28/18 13:15 02/17/18 07:14 Pantoprazole (Protonix) 40 mg Q12HR IV 01/28/18 21:00 02/17/18 08:59 02/02/18 10:04 Phenytoin 150 mg/ Sodium Chloride 58 ml @ 114 mls/hr EVERY 12 HOURS IVPB 01/28/18 21:00 02/17/18 22:29 02/02/18 10:12 Polyethylene Glycol (Miralax) 17 gm DAILYPRN PRN ORAL Constipation 01/29/18 13:00 02/17/18 12:59 Tigecycline 50 mg/ Dextrose 110 ml @ 220 mls/hr EVERY 12 HOURS IVPB 02/02/18 13:00 02/09/18 12:59 02/02/18 12:49 Vancomycin HCl (Vancomycin) 125 mg FOUR TIMES A DAY ORAL 01/28/18 13:00 02/06/18 12:59 02/02/18 18:45 Allergies: Coded Allergies: No Known Allergies (Unverified , 01/18/15) ROS Limited/Unobtainable: Yes Subjective 37 YO F admitted with abdominal distention. S/P cardiac arrest. S/P exploratory laparotomy 01/19/18. S/P sigmoidectomy and hemicolectomy 01/21/18. Cover for Int Med-Dr Morel. Intubated and sedated. JOSSE. Objective Last Vital Signs Date Time Temp Pulse Resp B/P (MAP) Pulse Ox O2 Delivery O2 Flow Rate FiO2 02/02/18 18:45 98.4 96 16 120/53 (75) 99 98.4 02/02/18 17:03 40 02/02/18 16:00 Mechanical Ventilator 01/28/18 02:36 30.0 Laboratory Tests Test 02/02/18 04:00 02/02/18 08:25 White Blood Count 13.3 K/UL (4.8-10.8) H 11.6 K/UL (4.8-10.8) H Red Blood Count 2.47 M/UL (4.20-5.40) L 2.33 M/UL (4.20-5.40) L Hemoglobin 7.3 G/DL (12.0-16.0) L 6.9 G/DL (12.0-16.0) *L Hematocrit 22.9 % (37.0-47.0) L 21.5 % (37.0-47.0) L Mean Corpuscular Volume 93 FL (80-99) 92 FL (80-99) Mean Corpuscular Hemoglobin 29.8 PG (27.0-31.0) 29.7 PG (27.0-31.0) Mean Corpuscular Hemoglobin Concent 32.1 G/DL (32.0-36.0) 32.1 G/DL (32.0-36.0) Red Cell Distribution Width 12.8 % (11.6-14.8) 12.8 % (11.6-14.8) Platelet Count 406 K/UL (150-450) 415 K/UL (150-450) Mean Platelet Volume 6.1 FL (6.5-10.1) L 6.0 FL (6.5-10.1) L Neutrophils (%) (Auto) % (45.0-75.0) % (45.0-75.0) Lymphocytes (%) (Auto) % (20.0-45.0) % (20.0-45.0) Monocytes (%) (Auto) % (1.0-10.0) % (1.0-10.0) Eosinophils (%) (Auto) % (0.0-3.0) % (0.0-3.0) Basophils (%) (Auto) % (0.0-2.0) % (0.0-2.0) Differential Total Cells Counted 100 100 Neutrophils % (Manual) 74 % (45-75) 71 % (45-75) Lymphocytes % (Manual) 13 % (20-45) L 18 % (20-45) L Monocytes % (Manual) 9 % (1-10) 9 % (1-10) Eosinophils % (Manual) 1 % (0-3) 1 % (0-3) Basophils % (Manual) 1 % (0-2) 1 % (0-2) Band Neutrophils 2 % (0-8) 0 % (0-8) Platelet Estimate Increased H Increased H Platelet Morphology Normal Normal Hypochromasia 1+ 1+ Sodium Level 140 MMOL/L (136-145) Potassium Level 3.9 MMOL/L (3.5-5.1) Chloride Level 111 MMOL/L (98-107) H Carbon Dioxide Level 22 MMOL/L (21-32) Anion Gap 7 mmol/L (5-15) Blood Urea Nitrogen 3 mg/dL (7-18) L Creatinine 0.9 MG/DL (0.55-1.30) Estimat Glomerular Filtration Rate > 60 mL/min (>60) Glucose Level 66 MG/DL (74-106) L Calcium Level 7.7 MG/DL (8.5-10.1) L Phosphorus Level 4.6 MG/DL (2.5-4.9) Magnesium Level 1.3 MG/DL (1.8-2.4) L Total Bilirubin 0.2 MG/DL (0.2-1.0) Aspartate Amino Transf (AST/SGOT) 30 U/L (15-37) Alanine Aminotransferase (ALT/SGPT) 29 U/L (12-78) Alkaline Phosphatase 79 U/L (46-116) Total Protein 6.6 G/DL (6.4-8.2) Albumin 1.6 G/DL (3.4-5.0) L Globulin 5.0 g/dL Albumin/Globulin Ratio 0.3 (1.0-2.7) L Intake and Output 02/01/18 02/02/18 19:00 07:00 Intake Total 1253 ml 1533 ml Output Total 5140 ml 2100 ml Balance -3887 ml -567 ml Free Water 100 ml IV Total 1253 ml 1293 ml Tube Feeding 140 ml Output Urine Total 5000 ml 2000 ml Stool Total 110 ml 100 ml Drainage Total 30 ml Objective General Appearance: WD/WN, lethargic EENT: normal ENT inspection Neck: non-tender, normal alignment, supple, other - tracheostomy Cardiovascular: normal peripheral pulses, normal rate, regular rhythm, regularly irregular, no gallop/murmur, no JVD Respiratory/Chest: Mech vent; chest wall non-tender, no accessory muscle use, rhonchi - bilaterally, other - Mech Vent Abdomen: ostomy; normal bowel sounds, non tender, soft, no organomegaly, no mass Extremities: normal inspection Skin: normal pigmentation, warm/dry Assessment/Plan Problem List: (1) Incarcerated ventral hernia Assessment & Plan: S/P exploratory laparotomy on 01/19/18-see surgery note. S/P sigmoidectomy, omentectomy and hemicolectomy on 01/21/18. Continue vanco, flagyl , tigecycline and micafungin per ID (2) Volvulus of sigmoid colon (3) Abdominal distension Assessment & Plan: Resolving-see surgery note. (4) Cardiac arrest Assessment & Plan: see cardiology note (5) Seizure disorder Assessment & Plan: Continue keppra and dilantin (6) Anemia (7) Hypertension Assessment & Plan: Hypotensived. Currently on pressors. (8) Encephalopathy (9) Dysphagia (10) Tachycardia (11) Severe sepsis Assessment & Plan: See ID note. (12) Anoxic brain injury (13) Respiratory failure (14) Leukocytosis Assessment & Plan: Worsening. See ID note (15) GI bleed Assessment & Plan: See GI note. Status: not improved Assessment/Plan prognosis is guarded. Adrian Porter MD Feb 02, 2018 18:50
[2018-02-02] MEDS: Dyna-Hex 2% Top Sol 2oz TOPIC SCH (20:42)
[2018-02-03] VITALS: BP 137/78
[2018-02-03] MEDS: D5NS 1,000 ML IV SCH ×2 (03:51→17:26)
[2018-02-03 04:00] VITALS: BP 126/72
[2018-02-03 05:13] LABS: BASOPHILS % (AUTO) 1.2 % (0.0-2.0); EOSINOPHILS % (AUTO) 1.9 % (0.0-3.0); HEMATOCRIT 25.8 % (37.0-47.0); HEMOGLOBIN 8.8 G/DL (12.0-16.0); INR 1.2 (0.9-1.1); LYMPHOCYTES % (AUTO) 21.7 % (20.0-45.0); MEAN CORPUSCULAR VOLUME 90 FL (80-99); MONOCYTES % (AUTO) 13.3 % (1.0-10.0); NEUTROPHILS % (AUTO) 61.9 % (45.0-75.0); PLATELET COUNT 386 K/UL (150-450); RED BLOOD COUNT 2.86 M/UL (4.20-5.40); RED CELL DISTRIBUTION WIDTH 12.4 % (11.6-14.8); WHITE BLOOD COUNT 11.7 K/UL (4.8-10.8)
[2018-02-03 05:43] LABS: ALANINE AMINOTRANSFERASE 26 U/L (12-78); ALBUMIN 1.7 G/DL (3.4-5.0); ALBUMIN/GLOBULIN RATIO 0.3 (1.0-2.7); ALKALINE PHOSPHATASE 85 U/L (46-116); ANION GAP 8 mmol/L (5-15); ASPARTATE AMINO TRANSFERASE 23 U/L (15-37); BILIRUBIN,TOTAL 0.4 MG/DL (0.2-1.0); BLOOD UREA NITROGEN 4 mg/dL (7-18); CALCIUM 7.7 MG/DL (8.5-10.1); CARBON DIOXIDE 23 MMOL/L (21-32); CHLORIDE 112 MMOL/L (98-107); SODIUM 143 MMOL/L (136-145)
[2018-02-03 07:59] VITALS: BP 115/69
--- NOTE | 2018-02-03 08:51 | General Progress Note ---
Assessment/Plan Status: stable Assessment/Plan #. Leukocytosis, likely due to infection, peritonitis, now better --> The patient with lactic acidosis. Lactic acid 7.4. --> Currently on pressors. Rule out infectious etiology. --> On broad-spectrum antibiotics and antifungals. --> Closely monitor for improvement. #. Anemia currently due to blood loss from surgery in addition to hemodilution --> cr goal is >7 --> jak2 level pending under serology as she had erythrocytosis on presentation --> anemia w/u has been reviewed, will trend daily. --> Transfuse as needed. --> 02/02 hgb at 6.9, 1 unit prbc ordered. #. Coagulopathy with inr 1.6 likely due to malnutrition v dic --> obtain a mixing study #. Septic shock, closely monitor, --> on antibiotics, broad spectrum. #. Seizure disorder, currently on antiseizure medication. #. Respiratory failure, status post trach and vent. #. Dysphagia, status post gastrostomy tube. The time the note was entered does not necessarily correspond to the time the patient was seen. Subjective Date patient seen: Feb 03, 2018 ROS Limited/Unobtainable: Yes Hematologic/Lymphatic: Reports: anemia Allergies: Coded Allergies: No Known Allergies (Unverified , 01/18/15) All Systems: reviewed and negative except above Subjective no acute events. S/P 1 unit transfusion, Hgb improved. No resp distress. Objective Last 24 Hour Vital Signs Date Time Temp Pulse Resp B/P (MAP) Pulse Ox O2 Delivery O2 Flow Rate FiO2 02/03/18 08:45 104 02/03/18 08:00 Mechanical Ventilator 02/03/18 08:00 30 02/03/18 07:59 98.3 101 16 115/69 (84) 99 98.3 02/03/18 06:41 104 12 30 02/03/18 04:36 113 13 30 02/03/18 04:00 116 02/03/18 04:00 Mechanical Ventilator 02/03/18 04:00 30 02/03/18 04:00 99.0 118 12 126/72 (90) 100 99.0 02/03/18 02:35 89 14 40 02/03/18 00:50 83 14 40 02/03/18 00:00 30 02/03/18 00:00 98.4 101 13 137/78 (97) 100 98.4 02/03/18 00:00 Mechanical Ventilator 02/03/18 00:00 77 02/02/18 23:07 90 12 40 02/02/18 20:50 92 12 40 02/02/18 20:00 Mechanical Ventilator 02/02/18 20:00 95 02/02/18 20:00 30 02/02/18 20:00 99.2 95 12 115/78 (90) 100 99.2 02/02/18 18:54 89 12 40 02/02/18 18:45 98.4 96 16 120/53 (75) 99 98.4 02/02/18 17:03 80 12 40 02/02/18 16:00 98.6 99 13 116/74 (88) 99 98.6 02/02/18 16:00 30 02/02/18 16:00 Mechanical Ventilator 02/02/18 15:45 98.1 101 14 111/64 (80) 100 98.1 02/02/18 15:38 100 02/02/18 12:58 84 12 40 02/02/18 12:00 Mechanical Ventilator 02/02/18 12:00 30 02/02/18 12:00 99.0 100 13 101/60 (74) 100 99.0 02/02/18 11:44 90 02/02/18 10:58 83 14 40 02/02/18 08:56 80 12 40 Intake and Output 02/02/18 02/03/18 19:00 07:00 Intake Total 1318 ml 1953 ml Output Total 2300 ml 2525 ml Balance -982 ml -572 ml Free Water 120 ml IV Total 478 ml 1153 ml Tube Feeding 470 ml 680 ml Blood Product 250 ml Other 120 ml Output Urine Total 2300 ml 2325 ml Stool Total 200 ml # Bowel Movements 100 Laboratory Tests 02/03/18 03:20: White Blood Count 11.7H, Red Blood Count 2.86L, Hemoglobin 8.8L, Hematocrit 25.8L, Mean Corpuscular Volume 90, Mean Corpuscular Hemoglobin 30.8, Mean Corpuscular Hemoglobin Concent 34.2, Red Cell Distribution Width 12.4, Platelet Count 386, Mean Platelet Volume 6.0L, Neutrophils (%) (Auto) 61.9, Lymphocytes ( %) (Auto) 21.7, Monocytes (%) (Auto) 13.3H, Eosinophils (%) (Auto) 1.9, Basophils (%) (Auto) 1.2, Prothrombin Time 12.3H, Prothromb Time International Ratio 1.2H, Activated Partial Thromboplast Time 34H, Sodium Level 143, Potassium Level 4.0, Chloride Level 112H, Carbon Dioxide Level 23, Anion Gap 8, Blood Urea Nitrogen 4L, Creatinine 1.0, Estimat Glomerular Filtration Rate > 60 , Glucose Level 90, Calcium Level 7.7L, Phosphorus Level 4.0, Magnesium Level 1.3L, Total Bilirubin 0.4, Aspartate Amino Transf (AST/SGOT) 23, Alanine Aminotransferase (ALT/SGPT) 26, Alkaline Phosphatase 85, Total Protein 6.9, Albumin 1.7L, Globulin 5.2, Albumin/Globulin Ratio 0.3L Height (Feet): 5 Height (Inches): 3.00 Weight (Pounds): 184 General Appearance: no apparent distress EENT: PERRL/EOMI Neck: normal alignment Cardiovascular: tachycardia Respiratory/Chest: no respiratory distress Abdomen: soft Isaiah Noriega MD Feb 03, 2018 08:51
[2018-02-03] MEDS: Cefepime HCl 1 GM in D5W 110 ML IVPB SCH (09:21)
[2018-02-03] MEDS: Pantoprazole Inj IV SCH (09:26)
[2018-02-03] MEDS: Heparin 5000 units/ml inj SUBQ SCH (09:33)
[2018-02-03] MEDS: Vancomycin oral 125mg/2.5ml ORAL SCH ×3 (09:44→17:26)
[2018-02-03] MEDS: levETIRAcetam 1,000mg/NS100ml 100 ML IVPB SCH (09:52)
--- NOTE | 2018-02-03 10:28 | General Progress Note ---
Progress Note Progress Note Surgery: overall improving. leukocytosis stable ostomy functional wound healing cont with wound care. okay for placement from surgical standpoint Marshall Ferguson Feb 03, 2018 10:28
[2018-02-03] MEDS: PHENYTOIN IVPB SCH (10:37)
[2018-02-03] MEDS: NS IVPB SCH (10:37)
--- NOTE | 2018-02-03 11:11 | GI Progress Note ---
Assessment/Plan Problems: (1) GI bleed ICD Codes: K92.2 - Gastrointestinal hemorrhage, unspecified SNOMED: 89217432 (2) Feeding by G-tube ICD Codes: Z93.1 - Feeding by G-tube SNOMED: 859137013 (3) Anoxic brain injury ICD Codes: G93.1 - Anoxic brain injury SNOMED: 930369567 (4) Severe sepsis ICD Codes: A41.9 - Sepsis, unspecified organism; R65.20 - Severe sepsis without septic shock SNOMED: 26146636 (5) Anemia ICD Codes: D64.9 - Anemia SNOMED: 191004597 Status: unchanged Status Narrative Discussed with Dr. Reese. Assessment/Plan anemia work up reviewed - folate deficiency - no iron deficiency - downtrending H&H continues to have severe anemia with no s/sx of active bleeding cdiff negative lipase elevation >> resolved gastric lavage >> no heme noted normal coags colostomy drainage >> previous noted with blood, now brown. defer any GI procedures given recent surgery GTFs per RD IV hydration + electrolyte correction monitor H&H, transfuse prn per hematology folate ppi BID fu labs dc planning The patient was seen and examined at bedside and all new and available data was reviewed in the patients chart. I agree with the above findings, impression and plan. (Patient seen earlier today. Signature stamp does not reflect patient encounter time.). - Baldemar Reese MD Subjective Subjective limited Objective Last 24 Hour Vital Signs Date Time Temp Pulse Resp B/P (MAP) Pulse Ox O2 Delivery O2 Flow Rate FiO2 02/03/18 10:36 110 17 30 02/03/18 08:52 93 12 30 02/03/18 08:45 104 02/03/18 08:00 Mechanical Ventilator 02/03/18 08:00 30 02/03/18 07:59 98.3 101 16 115/69 (84) 99 98.3 02/03/18 06:41 104 12 30 02/03/18 04:36 113 13 30 02/03/18 04:00 116 02/03/18 04:00 Mechanical Ventilator 02/03/18 04:00 30 02/03/18 04:00 99.0 118 12 126/72 (90) 100 99.0 02/03/18 02:35 89 14 40 02/03/18 00:50 83 14 40 7/18/18 00:00 30 02/03/18 00:00 98.4 101 13 137/78 (97) 100 98.4 02/03/18 00:00 Mechanical Ventilator 02/03/18 00:00 77 02/02/18 23:07 90 12 40 02/02/18 20:50 92 12 40 02/02/18 20:00 Mechanical Ventilator 02/02/18 20:00 95 02/02/18 20:00 30 02/02/18 20:00 99.2 95 12 115/78 (90) 100 99.2 02/02/18 18:54 89 12 40 02/02/18 18:45 98.4 96 16 120/53 (75) 99 98.4 02/02/18 17:03 80 12 40 02/02/18 16:00 98.6 99 13 116/74 (88) 99 98.6 02/02/18 16:00 30 02/02/18 16:00 Mechanical Ventilator 02/02/18 15:45 98.1 101 14 111/64 (80) 100 98.1 02/02/18 15:38 100 02/02/18 12:58 84 12 40 02/02/18 12:00 Mechanical Ventilator 02/02/18 12:00 30 02/02/18 12:00 99.0 100 13 101/60 (74) 100 99.0 02/02/18 11:44 90 Intake and Output 02/02/18 02/03/18 19:00 07:00 Intake Total 1318 ml 2028 ml Output Total 2300 ml 2525 ml Balance -982 ml -497 ml Free Water 120 ml IV Total 478 ml 1228 ml Tube Feeding 470 ml 680 ml Blood Product 250 ml Other 120 ml Output Urine Total 2300 ml 2325 ml Stool Total 200 ml # Bowel Movements 100 Laboratory Tests Test 02/03/18 03:20 White Blood Count 11.7 K/UL (4.8-10.8) H Red Blood Count 2.86 M/UL (4.20-5.40) L Hemoglobin 8.8 G/DL (12.0-16.0) L Hematocrit 25.8 % (37.0-47.0) L Mean Corpuscular Volume 90 FL (80-99) Mean Corpuscular Hemoglobin 30.8 PG (27.0-31.0) Mean Corpuscular Hemoglobin Concent 34.2 G/DL (32.0-36.0) Red Cell Distribution Width 12.4 % (11.6-14.8) Platelet Count 386 K/UL (150-450) Mean Platelet Volume 6.0 FL (6.5-10.1) L Neutrophils (%) (Auto) 61.9 % (45.0-75.0) Lymphocytes (%) (Auto) 21.7 % (20.0-45.0) Monocytes (%) (Auto) 13.3 % (1.0-10.0) H Eosinophils (%) (Auto) 1.9 % (0.0-3.0) Basophils (%) (Auto) 1.2 % (0.0-2.0) Prothrombin Time 12.3 SEC (9.30-11.50) H Prothromb Time International Ratio 1.2 (0.9-1.1) H Activated Partial Thromboplast Time 34 SEC (23-33) H Sodium Level 143 MMOL/L (136-145) Potassium Level 4.0 MMOL/L (3.5-5.1) Chloride Level 112 MMOL/L (98-107) H Carbon Dioxide Level 23 MMOL/L (21-32) Anion Gap 8 mmol/L (5-15) Blood Urea Nitrogen 4 mg/dL (7-18) L Creatinine 1.0 MG/DL (0.55-1.30) Estimat Glomerular Filtration Rate > 60 mL/min (>60) Glucose Level 90 MG/DL (74-106) Calcium Level 7.7 MG/DL (8.5-10.1) L Phosphorus Level 4.0 MG/DL (2.5-4.9) Magnesium Level 1.3 MG/DL (1.8-2.4) L Total Bilirubin 0.4 MG/DL (0.2-1.0) Aspartate Amino Transf (AST/SGOT) 23 U/L (15-37) Alanine Aminotransferase (ALT/SGPT) 26 U/L (12-78) Alkaline Phosphatase 85 U/L (46-116) Total Protein 6.9 G/DL (6.4-8.2) Albumin 1.7 G/DL (3.4-5.0) L Globulin 5.2 g/dL Albumin/Globulin Ratio 0.3 (1.0-2.7) L Height (Feet): 5 Height (Inches): 3.00 Weight (Pounds): 184 General Appearance: WD/WN, no apparent distress, alert Cardiovascular: normal rate Respiratory/Chest: normal breath sounds, no respiratory distress Abdominal Exam: normal bowel sounds, non tender, soft Extremities: non-tender Ron Mead NP Feb 03, 2018 11:11
--- NOTE | 2018-02-03 11:23 | Cardiology Progress Note ---
Assessment/Plan Status: stable Assessment/Plan (1) Acute on chronic respiratory failure (2) Sepsis (3) Anoxic brain injury (4) Feeding by G-tube (5) Tachycardia (6) S/P exploratory laparotomy, left hemicolectomy Continue Abx No procedures indicated per GI Continue respiratory ventilator support G tube care Wound care per surgery - drains removed, ostomy pink Echo reviewed - stable, no heart failure, CV stable Ok to transfer to SNF when available Subjective Cardiovascular: Reports: no symptoms Respiratory: Reports: no symptoms Gastrointestinal/Abdominal: Reports: no symptoms Genitourinary: Reports: no symptoms Subjective pt. in bed obtunded, no s/s of acute cardiac or respiratory distress noted, pt. appears to be tolerating current vent settings well- AC 12, TV 600, Fio2 of 30% and peep of 5, G Tube intact and patent, Colostomy back intact, Drains removed. WBC now normal Objective Last 24 Hour Vital Signs Date Time Temp Pulse Resp B/P (MAP) Pulse Ox O2 Delivery O2 Flow Rate FiO2 02/03/18 10:36 110 17 30 02/03/18 08:52 93 12 30 02/03/18 08:45 104 02/03/18 08:00 Mechanical Ventilator 02/03/18 08:00 30 02/03/18 07:59 98.3 101 16 115/69 (84) 99 98.3 02/03/18 06:41 104 12 30 02/03/18 04:36 113 13 30 02/03/18 04:00 116 02/03/18 04:00 Mechanical Ventilator 02/03/18 04:00 30 02/03/18 04:00 99.0 118 12 126/72 (90) 100 99.0 02/03/18 02:35 89 14 40 02/03/18 00:50 83 14 40 02/03/18 00:00 30 02/03/18 00:00 98.4 101 13 137/78 (97) 100 98.4 02/03/18 00:00 Mechanical Ventilator 02/03/18 00:00 77 02/02/18 23:07 90 12 40 02/02/18 20:50 92 12 40 02/02/18 20:00 Mechanical Ventilator 02/02/18 20:00 95 02/02/18 20:00 30 02/02/18 20:00 99.2 95 12 115/78 (90) 100 99.2 02/02/18 18:54 89 12 40 02/02/18 18:45 98.4 96 16 120/53 (75) 99 98.4 02/02/18 17:03 80 12 40 02/02/18 16:00 98.6 99 13 116/74 (88) 99 98.6 02/02/18 16:00 30 02/02/18 16:00 Mechanical Ventilator 02/02/18 15:45 98.1 101 14 111/64 (80) 100 98.1 02/02/18 15:38 100 02/02/18 12:58 84 12 40 02/02/18 12:00 Mechanical Ventilator 02/02/18 12:00 30 02/02/18 12:00 99.0 100 13 101/60 (74) 100 99.0 02/02/18 11:44 90 General Appearance: no apparent distress, on vent EENT: PERRL/EOMI Neck: non-tender Rhythm: NSR Cardiovascular: normal peripheral pulses Respiratory/Chest: chest wall non-tender Extremities: normal range of motion Neurologic: no pronator, abnormal CN, motor weakness, sensory deficit, disoriented Intake and Output 02/02/18 02/03/18 19:00 07:00 Intake Total 1318 ml 2028 ml Output Total 2300 ml 2525 ml Balance -982 ml -497 ml Free Water 120 ml IV Total 478 ml 1228 ml Tube Feeding 470 ml 680 ml Blood Product 250 ml Other 120 ml Output Urine Total 2300 ml 2325 ml Stool Total 200 ml # Bowel Movements 100 Laboratory Tests Test 02/03/18 03:20 White Blood Count 11.7 K/UL (4.8-10.8) H Red Blood Count 2.86 M/UL (4.20-5.40) L Hemoglobin 8.8 G/DL (12.0-16.0) L Hematocrit 25.8 % (37.0-47.0) L Mean Corpuscular Volume 90 FL (80-99) Mean Corpuscular Hemoglobin 30.8 PG (27.0-31.0) Mean Corpuscular Hemoglobin Concent 34.2 G/DL (32.0-36.0) Red Cell Distribution Width 12.4 % (11.6-14.8) Platelet Count 386 K/UL (150-450) Mean Platelet Volume 6.0 FL (6.5-10.1) L Neutrophils (%) (Auto) 61.9 % (45.0-75.0) Lymphocytes (%) (Auto) 21.7 % (20.0-45.0) Monocytes (%) (Auto) 13.3 % (1.0-10.0) H Eosinophils (%) (Auto) 1.9 % (0.0-3.0) Basophils (%) (Auto) 1.2 % (0.0-2.0) Prothrombin Time 12.3 SEC (9.30-11.50) H Prothromb Time International Ratio 1.2 (0.9-1.1) H Activated Partial Thromboplast Time 34 SEC (23-33) H Sodium Level 143 MMOL/L (136-145) Potassium Level 4.0 MMOL/L (3.5-5.1) Chloride Level 112 MMOL/L (98-107) H Carbon Dioxide Level 23 MMOL/L (21-32) Anion Gap 8 mmol/L (5-15) Blood Urea Nitrogen 4 mg/dL (7-18) L Creatinine 1.0 MG/DL (0.55-1.30) Estimat Glomerular Filtration Rate > 60 mL/min (>60) Glucose Level 90 MG/DL (74-106) Calcium Level 7.7 MG/DL (8.5-10.1) L Phosphorus Level 4.0 MG/DL (2.5-4.9) Magnesium Level 1.3 MG/DL (1.8-2.4) L Total Bilirubin 0.4 MG/DL (0.2-1.0) Aspartate Amino Transf (AST/SGOT) 23 U/L (15-37) Alanine Aminotransferase (ALT/SGPT) 26 U/L (12-78) Alkaline Phosphatase 85 U/L (46-116) Total Protein 6.9 G/DL (6.4-8.2) Albumin 1.7 G/DL (3.4-5.0) L Globulin 5.2 g/dL Albumin/Globulin Ratio 0.3 (1.0-2.7) L Rob Cote M.D. Feb 03, 2018 11:23
--- NOTE | 2018-02-03 11:28 | Infectious Diseases Prog Note ---
Assessment/Plan Assessment/Plan Assessment: Septic shock,SP ; resolved after surgical exploration- 2ry intraabdominal source- (intra-abdominal peritonitis 2ry to malpositioned gastric feeding tube, incarcerated fat containing ventral hernia and likely sigmoid volvulus) --SP Re-exploration of abdomen, Sigmoid colectomy for volvulus, Takedown of splenic flexure, Left hemicolectomy, Creation of transverse colostomy, Abdominal closure 01/21 -OR findings: no further leakage of gastric contents or feeds. No bleeding. sigmoid colon remained significantly distended despite rectal tube placement and prior decompression. Sigmoid colon easily volvulized intraoperatively. --SP Exploratory laparotomy, Abdominal washout, G-tube replacement, wound vac placment, Excision of incarcerated ventral hernia, and Reduction of sigmoid volvulus 01/19 --no perforation or gross necrosis noted upon surgical exploration --abd fluid cx anerobic Neg; aerobic P. mirabilis (I Cipro, otherwise S), Serratia liquefences (R ancef, levo; otherwise S), CONS -No obvious pathology on lungs on CXR. r/o UTI -Bcx 2/4 Diptheroids, 1/4 CONS (contaminants), Aerococcus sp (typically a urinary pathogen; S Vanco, Ceftriaxone, PNC), ?UTI (often is not isolated from urine culture given special media requirements) -u/a initial normal; repeat WBC 10-15, nit +, leuk +1 but sq cells mod ( contaminated); ucx NTD -CXR: Hyperlucent the upper abdomen. Free air not excluded. Correlate clinically. Distended bowel also noted. No acute disease within the chest. Tracheostomy -CRP impoved (now 7) -Lipase ~1k Fever, Sp Leukocytosis (peak to 40s; now resoling)-Supect Cdiff (increased foul smelling ostomy output, dilation of bowels, no obvious abscess on limited CT). Likely Pancreatitis (elevated Lipase);a also GIB colntributing -KUB 01/27 Moderate stool in the rectal vault but overall improved compared to the last study done on January 18, 2018. -01/27, 01/29 Bcx NTD Diarrhea CDiff toxin A/B EIA neg (this test ahs low sensitivity); still suspect Cdiff -CT chest/abd/p 01/24: Very limited examination due to the lack of intravenous and oral contrast administration. Status post recent abdominal surgery with open anterior abdominal incision still noted. No abscess. Suggestion of dilatation of multiple loops of small bowel, not evaluated well on this examination. Findings may be due to postoperative ileus. Obstruction is not excludable. Left lower quadrant ostomy noted. Small bilateral pleural effusions and posterior basal atelectasis. Tracheostomy, PICC line, gastrostomy, Rock catheter is in good position. Moderate fecal retention in the rectum which is distended. Anasarca. -CXR: Question of new pneumomediastinum along the left heart margin. Question whether the tracheostomy is appropriately sealed. Basilar opacities again noted, increased on the left. Some of this could be due to differences in positioning, but question increasing pleural fluid and associated atelectasis/consolidation. Right-sided opacity is stable. ?Pneumomediastinum- not see on CT chest Elevated CPK- resolved -Dapto d/c 01/21 POssible PNA- -CXR 02/02: Patchy right basilar lung disease. Consider pneumonia or atelectasis -CXR 01/29Worsening of aeration with increased opacification at the right base which may related to small layering pleural effusion, atelectasis and/or pneumonia. -sp cx MDR ABC ( S Bactrim, Tigecycline, Colistin, Polymixin B), E.coli #2 ( S. Ceftriaxone, Cefepime; R Zosyn); repeat 01/24 sp cx MDR ABC, MDR PsA (S Cefepime) GIB Acute blood loss anemia Bradycardia> Asystolic cardiac arrest Acute on chronic respirator failure Lactic acidosis; resolved INDIRA; improving HTN seizure disorder anoxic brain injury 2014 chronic resp failure trach/vent dependant 2014 s/p G-tube 2015 SNF resident Plan: -Continue Tigecycline # /-14 (abx d# -) for intra-abdominal and MDR ABC in sputum coverage and synergistic for possible Cdiff -Continue IV Cefepime # 01/26 for MDR PsA in repeat sp cx -Continue empiric PO Vancomycin #10/ and IV Flagyl # 10/ for suspected severe CDiff -01/27 SP Micafungin #10 -/ SP IV Vancomycin #6, PO Bactrim #5 -7/9 SP Meropenem #8 -7/5 SP Daptomycin #4 (d/c due to elevated CPK) -01/18 SP IV Vancomycin #1, Cefepime x1, Azithromycin x1, Zosyn x1 -f/u Bcx x2 (peripheral and PICC) -Monitor CBC/BMP, temperatures -Trend WBC -Surgery, GI following -wound care per hospital protocol -Cdiff precautions Subjective Allergies: Coded Allergies: No Known Allergies (Unverified , 01/18/15) Subjective afebrile leukocytosis resolving repeat Bcx NTD RENÉ drains removed Objective Vital Signs Last 24 Hour Vital Signs Date Time Temp Pulse Resp B/P (MAP) Pulse Ox O2 Delivery O2 Flow Rate FiO2 02/03/18 10:36 110 17 30 02/03/18 08:52 93 12 30 02/03/18 08:45 104 02/03/18 08:00 Mechanical Ventilator 02/03/18 08:00 30 02/03/18 07:59 98.3 101 16 115/69 (84) 99 98.3 02/03/18 06:41 104 12 30 02/03/18 04:36 113 13 30 02/03/18 04:00 116 02/03/18 04:00 Mechanical Ventilator 02/03/18 04:00 30 02/03/18 04:00 99.0 118 12 126/72 (90) 100 99.0 02/03/18 02:35 89 14 40 02/03/18 00:50 83 14 40 02/03/18 00:00 30 02/03/18 00:00 98.4 101 13 137/78 (97) 100 98.4 02/03/18 00:00 Mechanical Ventilator 02/03/18 00:00 77 02/02/18 23:07 90 12 40 02/02/18 20:50 92 12 40 02/02/18 20:00 Mechanical Ventilator 02/02/18 20:00 95 02/02/18 20:00 30 02/02/18 20:00 99.2 95 12 115/78 (90) 100 99.2 02/02/18 18:54 89 12 40 02/02/18 18:45 98.4 96 16 120/53 (75) 99 98.4 02/02/18 17:03 80 12 40 02/02/18 16:00 98.6 99 13 116/74 (88) 99 98.6 02/02/18 16:00 30 02/02/18 16:00 Mechanical Ventilator 02/02/18 15:45 98.1 101 14 111/64 (80) 100 98.1 02/02/18 15:38 100 02/02/18 12:58 84 12 40 02/02/18 12:00 Mechanical Ventilator 02/02/18 12:00 30 02/02/18 12:00 99.0 100 13 101/60 (74) 100 99.0 02/02/18 11:44 90 Height (Feet): 5 Height (Inches): 3.00 Weight (Pounds): 184 Objective General Appearance: chronically ill HEENT: normocephalic, bilateral eye PERRL Neck: tracheotomy Respiratory: crackles, rhonchi Cardiovascular : tachycardia Gastrointestinal: Gtube present; significant abd distention with some grimacing upon palpation; diminished to absent bowel sounds Genitourinary: rock in place Musculoskeletal: other - contracted extremities Neurologic: other - nonverbal Skin: no rash or cellulitis Laboratory Tests Test 02/03/18 03:20 White Blood Count 11.7 K/UL (4.8-10.8) H Red Blood Count 2.86 M/UL (4.20-5.40) L Hemoglobin 8.8 G/DL (12.0-16.0) L Hematocrit 25.8 % (37.0-47.0) L Mean Corpuscular Volume 90 FL (80-99) Mean Corpuscular Hemoglobin 30.8 PG (27.0-31.0) Mean Corpuscular Hemoglobin Concent 34.2 G/DL (32.0-36.0) Red Cell Distribution Width 12.4 % (11.6-14.8) Platelet Count 386 K/UL (150-450) Mean Platelet Volume 6.0 FL (6.5-10.1) L Neutrophils (%) (Auto) 61.9 % (45.0-75.0) Lymphocytes (%) (Auto) 21.7 % (20.0-45.0) Monocytes (%) (Auto) 13.3 % (1.0-10.0) H Eosinophils (%) (Auto) 1.9 % (0.0-3.0) Basophils (%) (Auto) 1.2 % (0.0-2.0) Prothrombin Time 12.3 SEC (9.30-11.50) H Prothromb Time International Ratio 1.2 (0.9-1.1) H Activated Partial Thromboplast Time 34 SEC (23-33) H Sodium Level 143 MMOL/L (136-145) Potassium Level 4.0 MMOL/L (3.5-5.1) Chloride Level 112 MMOL/L (98-107) H Carbon Dioxide Level 23 MMOL/L (21-32) Anion Gap 8 mmol/L (5-15) Blood Urea Nitrogen 4 mg/dL (7-18) L Creatinine 1.0 MG/DL (0.55-1.30) Estimat Glomerular Filtration Rate > 60 mL/min (>60) Glucose Level 90 MG/DL (74-106) Calcium Level 7.7 MG/DL (8.5-10.1) L Phosphorus Level 4.0 MG/DL (2.5-4.9) Magnesium Level 1.3 MG/DL (1.8-2.4) L Total Bilirubin 0.4 MG/DL (0.2-1.0) Aspartate Amino Transf (AST/SGOT) 23 U/L (15-37) Alanine Aminotransferase (ALT/SGPT) 26 U/L (12-78) Alkaline Phosphatase 85 U/L (46-116) Total Protein 6.9 G/DL (6.4-8.2) Albumin 1.7 G/DL (3.4-5.0) L Globulin 5.2 g/dL Albumin/Globulin Ratio 0.3 (1.0-2.7) L Current Medications Medications (Trade) Dose Ordered Sig/Kel Route PRN Reason Start Time Stop Time Status Last Admin Dose Admin Acetaminophen (Tylenol) 650 mg Q4H PRN ORAL FEVER 01/28/18 05:52 02/17/18 05:51 01/30/18 02:27 Cefepime HCl 1 gm/ Dextrose 110 ml @ 220 mls/hr EVERY 12 HOURS IVPB 01/28/18 21:00 02/06/18 23:59 02/03/18 09:21 Chlorhexidine Gluconate (Neela-Hex 2%) 1 applic DAILY@2000 TOPIC 01/28/18 20:00 02/19/18 19:59 02/02/18 20:42 Dextrose (Dextrose 50%) 25 ml STAT PRN IV Hypoglycemia 01/28/18 13:00 02/27/18 12:59 Dextrose (Dextrose 50%) 50 ml STAT PRN IV Hypoglycemia 01/28/18 13:00 02/27/18 12:59 Dextrose/Sodium Chloride 1,000 ml @ 75 mls/hr [id number] IV 01/31/18 09:00 03/02/18 08:59 02/03/18 03:51 Heparin Sodium (Porcine) (Heparin 5000 units/ml) 5,000 units EVERY 12 HOURS SUBQ 01/28/18 21:00 02/17/18 08:59 02/03/18 09:33 Levetiracetam 100 ml @ 400 mls/hr Q12HR IVPB 01/28/18 21:00 02/17/18 22:29 02/03/18 09:52 Metronidazole 100 ml @ 100 mls/hr Q8HR IVPB 02/02/18 14:00 02/09/18 13:59 02/03/18 05:37 Ondansetron HCl (Zofran) 4 mg Q6H PRN IVP Nausea & Vomiting 01/28/18 13:15 02/17/18 07:14 Pantoprazole (Protonix) 40 mg Q12HR IV 01/28/18 21:00 02/17/18 08:59 02/03/18 09:26 Phenytoin 150 mg/ Sodium Chloride 58 ml @ 114 mls/hr EVERY 12 HOURS IVPB 01/28/18 21:00 02/17/18 22:29 02/03/18 10:37 Polyethylene Glycol (Miralax) 17 gm DAILYPRN PRN ORAL Constipation 01/29/18 13:00 02/17/18 12:59 Tigecycline 50 mg/ Dextrose 110 ml @ 220 mls/hr EVERY 12 HOURS IVPB 02/02/18 13:00 02/09/18 12:59 02/02/18 20:44 Vancomycin HCl (Vancomycin) 125 mg FOUR TIMES A DAY ORAL 01/28/18 13:00 02/06/18 12:59 02/03/18 09:44 Amelia Bah M.D. Feb 03, 2018 11:28
[2018-02-03 12:00] VITALS: BP 140/80
[2018-02-03] MEDS: Tigecycline 50 MG in D5W 110 ML IVPB SCH (12:09)
--- NOTE | 2018-02-03 13:58 | Pulmonolgy Critical Care Note ---
Critical Care - Asmt/Plan Problems: (1) Acute on chronic respiratory failure (2) Sepsis (3) Anoxic brain injury (4) Feeding by G-tube (5) Tachycardia Respiratory: monitor respiratory rate, adjust FIO2 Cardiac: continue to monitor HR/BP Infectious Disease: check cultures Gastrointestinal: continue feedings/current rate Endocrine: check HgA1C Hematologic: transfuse if hgb<8.5 Neurologic: PRN Morphine, keep patient comfortable Prophylaxis: Protonix Disposition: keep in ICU Notes Reviewed: cardio Discussed with: nurses, consultants, case plannermanager pharmacy - Objective Last 24 Hour Vital Signs Date Time Temp Pulse Resp B/P (MAP) Pulse Ox O2 Delivery O2 Flow Rate FiO2 02/03/18 13:04 123 26 30 02/03/18 12:00 Mechanical Ventilator 02/03/18 12:00 112 02/03/18 12:00 98.2 112 19 140/80 (100) 99 98.2 02/03/18 12:00 30 02/03/18 10:36 110 17 30 02/03/18 08:52 93 12 30 02/03/18 08:45 104 02/03/18 08:00 Mechanical Ventilator 02/03/18 08:00 30 02/03/18 07:59 98.3 101 16 115/69 (84) 99 98.3 02/03/18 06:41 104 12 30 02/03/18 04:36 113 13 30 02/03/18 04:00 116 02/03/18 04:00 Mechanical Ventilator 02/03/18 04:00 30 02/03/18 04:00 99.0 118 12 126/72 (90) 100 99.0 02/03/18 02:35 89 14 40 02/03/18 00:50 83 14 40 02/03/18 00:00 30 02/03/18 00:00 98.4 101 13 137/78 (97) 100 98.4 02/03/18 00:00 Mechanical Ventilator 02/03/18 00:00 77 02/02/18 23:07 90 12 40 02/02/18 20:50 92 12 40 02/02/18 20:00 Mechanical Ventilator 02/02/18 20:00 95 02/02/18 20:00 30 02/02/18 20:00 99.2 95 12 115/78 (90) 100 99.2 02/02/18 18:54 89 12 40 02/02/18 18:45 98.4 96 16 120/53 (75) 99 98.4 02/02/18 17:03 80 12 40 02/02/18 16:00 98.6 99 13 116/74 (88) 99 98.6 02/02/18 16:00 30 02/02/18 16:00 Mechanical Ventilator 02/02/18 15:45 98.1 101 14 111/64 (80) 100 98.1 02/02/18 15:38 100 Status: obtunded Condition: critical HEENT: atraumatic Neck: full ROM Lungs: chest wall tender Heart: HR/BP unstable Abdomen: non-tender Extremities: no C/C/E Decubiti: location Accucheck: 248 Critical Care - Subjective ROS Limited/Unobtainable: Yes FI02: 30 Vent Support Breath Rate: 12 Vent Support Mode: AC Vent Tidal Volume: 600 Sputum Amount: Small PEEP: 5.0 PIP: 30 Tube Feeding Amount: 60 I&O: Intake and Output 02/02/18 02/03/18 19:00 07:00 Intake Total 1318 ml 2028 ml Output Total 2300 ml 2525 ml Balance -982 ml -497 ml Free Water 120 ml IV Total 478 ml 1228 ml Tube Feeding 470 ml 680 ml Blood Product 250 ml Other 120 ml Output Urine Total 2300 ml 2325 ml Stool Total 200 ml # Bowel Movements 100 CXR: no change Labs: Laboratory Tests Test 02/03/18 03:20 White Blood Count 11.7 K/UL (4.8-10.8) H Red Blood Count 2.86 M/UL (4.20-5.40) L Hemoglobin 8.8 G/DL (12.0-16.0) L Hematocrit 25.8 % (37.0-47.0) L Mean Corpuscular Volume 90 FL (80-99) Mean Corpuscular Hemoglobin 30.8 PG (27.0-31.0) Mean Corpuscular Hemoglobin Concent 34.2 G/DL (32.0-36.0) Red Cell Distribution Width 12.4 % (11.6-14.8) Platelet Count 386 K/UL (150-450) Mean Platelet Volume 6.0 FL (6.5-10.1) L Neutrophils (%) (Auto) 61.9 % (45.0-75.0) Lymphocytes (%) (Auto) 21.7 % (20.0-45.0) Monocytes (%) (Auto) 13.3 % (1.0-10.0) H Eosinophils (%) (Auto) 1.9 % (0.0-3.0) Basophils (%) (Auto) 1.2 % (0.0-2.0) Prothrombin Time 12.3 SEC (9.30-11.50) H Prothromb Time International Ratio 1.2 (0.9-1.1) H Activated Partial Thromboplast Time 34 SEC (23-33) H Sodium Level 143 MMOL/L (136-145) Potassium Level 4.0 MMOL/L (3.5-5.1) Chloride Level 112 MMOL/L (98-107) H Carbon Dioxide Level 23 MMOL/L (21-32) Anion Gap 8 mmol/L (5-15) Blood Urea Nitrogen 4 mg/dL (7-18) L Creatinine 1.0 MG/DL (0.55-1.30) Estimat Glomerular Filtration Rate > 60 mL/min (>60) Glucose Level 90 MG/DL (74-106) Calcium Level 7.7 MG/DL (8.5-10.1) L Phosphorus Level 4.0 MG/DL (2.5-4.9) Magnesium Level 1.3 MG/DL (1.8-2.4) L Total Bilirubin 0.4 MG/DL (0.2-1.0) Aspartate Amino Transf (AST/SGOT) 23 U/L (15-37) Alanine Aminotransferase (ALT/SGPT) 26 U/L (12-78) Alkaline Phosphatase 85 U/L (46-116) Total Protein 6.9 G/DL (6.4-8.2) Albumin 1.7 G/DL (3.4-5.0) L Globulin 5.2 g/dL Albumin/Globulin Ratio 0.3 (1.0-2.7) L Yanick Hernandez MD Feb 03, 2018 13:58
[2018-02-03 16:00] VITALS: BP 125/77
[2018-02-03] MEDS ORDERED: D5NS 1000ml IV ONE ×2 (18:27)
[2018-02-03] MEDS ORDERED: NS 500ML ONE (18:27)
[2018-02-03] MEDS ORDERED: NS 275ml ONE ×2 (18:27)
[2018-02-03] MEDS ORDERED: Tubing Blood Filter IV ONE (18:27)
[2018-02-03] MEDS ORDERED: Tubing IV Secondary IV ONE ×2 (18:27)
[2018-02-03] MEDS ORDERED: Sterile Water Irrig 1000ml IRRIG ONE (18:27)
--- NOTE | 2018-02-03 19:01 | Internal Med Progress Note ---
Subjective Date of Service: Feb 03, 2018 Physician Name Adrian Porter Attending Physician Guillermo Morel MD Current Medications Medications (Trade) Dose Ordered Sig/Kel Route PRN Reason Start Time Stop Time Status Last Admin Dose Admin Acetaminophen (Tylenol) 650 mg Q4H PRN ORAL FEVER 01/28/18 05:52 02/17/18 05:51 01/30/18 02:27 Cefepime HCl 1 gm/ Dextrose 110 ml @ 220 mls/hr EVERY 12 HOURS IVPB 01/28/18 21:00 02/06/18 23:59 02/03/18 09:21 Chlorhexidine Gluconate (Neela-Hex 2%) 1 applic DAILY@2000 TOPIC 01/28/18 20:00 02/19/18 19:59 02/02/18 20:42 Dextrose (Dextrose 50%) 25 ml STAT PRN IV Hypoglycemia 01/28/18 13:00 02/27/18 12:59 Dextrose (Dextrose 50%) 50 ml STAT PRN IV Hypoglycemia 01/28/18 13:00 02/27/18 12:59 Dextrose/Sodium Chloride 1,000 ml @ 75 mls/hr [id number] IV 01/31/18 09:00 03/02/18 08:59 02/03/18 17:26 Heparin Sodium (Porcine) (Heparin 5000 units/ml) 5,000 units EVERY 12 HOURS SUBQ 01/28/18 21:00 02/17/18 08:59 02/03/18 09:33 Levetiracetam 100 ml @ 400 mls/hr Q12HR IVPB 01/28/18 21:00 02/17/18 22:29 02/03/18 09:52 Metronidazole 100 ml @ 100 mls/hr Q8HR IVPB 02/02/18 14:00 02/09/18 13:59 02/03/18 14:24 Ondansetron HCl (Zofran) 4 mg Q6H PRN IVP Nausea & Vomiting 01/28/18 13:15 02/17/18 07:14 Pantoprazole (Protonix) 40 mg Q12HR IV 01/28/18 21:00 02/17/18 08:59 02/03/18 09:26 Phenytoin 150 mg/ Sodium Chloride 58 ml @ 114 mls/hr EVERY 12 HOURS IVPB 01/28/18 21:00 02/17/18 22:29 02/03/18 10:37 Polyethylene Glycol (Miralax) 17 gm DAILYPRN PRN ORAL Constipation 01/29/18 13:00 02/17/18 12:59 Tigecycline 50 mg/ Dextrose 110 ml @ 220 mls/hr EVERY 12 HOURS IVPB 02/02/18 13:00 02/09/18 12:59 02/03/18 12:09 Vancomycin HCl (Vancomycin) 125 mg FOUR TIMES A DAY ORAL 01/28/18 13:00 02/06/18 12:59 02/03/18 17:26 Allergies: Coded Allergies: No Known Allergies (Unverified , 01/18/15) ROS Limited/Unobtainable: Yes Subjective 37 YO F admitted with abdominal distention. S/P cardiac arrest. S/P exploratory laparotomy 01/19/18. S/P sigmoidectomy and hemicolectomy 01/21/18. Cover for Int Med-Dr Morel. Intubated and sedated. JOSSE. Await transfer to [facility] Objective Last Vital Signs Date Time Temp Pulse Resp B/P (MAP) Pulse Ox O2 Delivery O2 Flow Rate FiO2 02/03/18 16:39 85 16 30 02/03/18 16:00 Mechanical Ventilator 02/03/18 16:00 98.2 125/77 (93) 100 98.2 01/28/18 02:36 30.0 Laboratory Tests Test 02/03/18 03:20 White Blood Count 11.7 K/UL (4.8-10.8) H Red Blood Count 2.86 M/UL (4.20-5.40) L Hemoglobin 8.8 G/DL (12.0-16.0) L Hematocrit 25.8 % (37.0-47.0) L Mean Corpuscular Volume 90 FL (80-99) Mean Corpuscular Hemoglobin 30.8 PG (27.0-31.0) Mean Corpuscular Hemoglobin Concent 34.2 G/DL (32.0-36.0) Red Cell Distribution Width 12.4 % (11.6-14.8) Platelet Count 386 K/UL (150-450) Mean Platelet Volume 6.0 FL (6.5-10.1) L Neutrophils (%) (Auto) 61.9 % (45.0-75.0) Lymphocytes (%) (Auto) 21.7 % (20.0-45.0) Monocytes (%) (Auto) 13.3 % (1.0-10.0) H Eosinophils (%) (Auto) 1.9 % (0.0-3.0) Basophils (%) (Auto) 1.2 % (0.0-2.0) Prothrombin Time 12.3 SEC (9.30-11.50) H Prothromb Time International Ratio 1.2 (0.9-1.1) H Activated Partial Thromboplast Time 34 SEC (23-33) H Sodium Level 143 MMOL/L (136-145) Potassium Level 4.0 MMOL/L (3.5-5.1) Chloride Level 112 MMOL/L (98-107) H Carbon Dioxide Level 23 MMOL/L (21-32) Anion Gap 8 mmol/L (5-15) Blood Urea Nitrogen 4 mg/dL (7-18) L Creatinine 1.0 MG/DL (0.55-1.30) Estimat Glomerular Filtration Rate > 60 mL/min (>60) Glucose Level 90 MG/DL (74-106) Calcium Level 7.7 MG/DL (8.5-10.1) L Phosphorus Level 4.0 MG/DL (2.5-4.9) Magnesium Level 1.3 MG/DL (1.8-2.4) L Total Bilirubin 0.4 MG/DL (0.2-1.0) Aspartate Amino Transf (AST/SGOT) 23 U/L (15-37) Alanine Aminotransferase (ALT/SGPT) 26 U/L (12-78) Alkaline Phosphatase 85 U/L (46-116) Total Protein 6.9 G/DL (6.4-8.2) Albumin 1.7 G/DL (3.4-5.0) L Globulin 5.2 g/dL Albumin/Globulin Ratio 0.3 (1.0-2.7) L Intake and Output 02/02/18 02/03/18 19:00 07:00 Intake Total 1318 ml 2028 ml Output Total 2300 ml 2525 ml Balance -982 ml -497 ml Free Water 120 ml IV Total 478 ml 1228 ml Tube Feeding 470 ml 680 ml Blood Product 250 ml Other 120 ml Output Urine Total 2300 ml 2325 ml Stool Total 200 ml # Bowel Movements 100 Objective General Appearance: WD/WN, lethargic EENT: normal ENT inspection Neck: non-tender, normal alignment, supple, other - tracheostomy Cardiovascular: normal peripheral pulses, normal rate, regular rhythm, regularly irregular, no gallop/murmur, no JVD Respiratory/Chest: Mech vent; chest wall non-tender, no accessory muscle use, rhonchi - bilaterally, other - Mech Vent Abdomen: ostomy; normal bowel sounds, non tender, soft, no organomegaly, no mass Extremities: normal inspection Skin: normal pigmentation, warm/dry Assessment/Plan Problem List: (1) Incarcerated ventral hernia Assessment & Plan: S/P exploratory laparotomy on 01/19/18-see surgery note. S/P sigmoidectomy, omentectomy and hemicolectomy on 01/21/18. Continue vanco, flagyl , tigecycline and micafungin per ID (2) Volvulus of sigmoid colon (3) Abdominal distension Assessment & Plan: Resolving-see surgery note. (4) Cardiac arrest Assessment & Plan: see cardiology note (5) Seizure disorder Assessment & Plan: Continue keppra and dilantin (6) Anemia (7) Hypertension Assessment & Plan: Hypotensived. Currently on pressors. (8) Encephalopathy (9) Dysphagia (10) Tachycardia (11) Severe sepsis Assessment & Plan: See ID note. (12) Anoxic brain injury (13) Respiratory failure (14) Leukocytosis Assessment & Plan: Worsening. See ID note (15) GI bleed Assessment & Plan: See GI note. Assessment/Plan prognosis is guarded. Transfer to [facility] today Adrian Porter MD Feb 03, 2018 19:01
--- NOTE | 2018-02-04 15:32 | Discharge Summary ---
Discharge Summary Discharge Summary _ DATE OF ADMISSION: 01/18/2018 DATE OF DISCHARGE: 02/03/2018 ATTENDING: Dr. Guillermo Morel CONSULTANTS: Dr. Yanick Cote BRIEF HOSPITAL COURSE: Patient is a 37-year-old female, vent dependent and is a resident of [facility], was brought in via EMS due to altered level of consciousness, respiratory distress and tachycardia. She has history of anoxic brain injury, history of seizures, and has a G-tube. On evaluation at ED she was found to be febrile with temperature 100.6. Workup showed elevated WBC, lactate was greater than 6. Kidney functions were elevated , creatinine 1.9, BUN 26. She had a chest x-ray done that showed a hyperlucency within the visualized part of the abdomen. She also had distended bowels. There was no acute disease within the chest. She had poor IV access, a right femoral central line was placed. She was given IV bolus. While at the emergency room she went into bradycardia and went into asystolic arrest. Fortunately she had return of spontaneous circulation. She was then admitted to ICU. She was placed on 3 IV pressors. Patient had septic shock however no obvious pathology. She was started empirically on IV vancomycin and daptomycin for VRE coverage in setting of possible bowel perforation. She was also started on meropenem and IV micafungin. Repeat chest x-ray did not show any active disease. KUB showed distended colon and questionable free air. Venous duplex of lower extremity was negative for DVT. Surgery was called. On examination, patient with incarcerated umbilical hernia and fortunately was able to be reduced at bedside. Patient would need CT scan but unfortunately was unstable for examination. Patient of would warrant diagnostic laparoscopy versus exploration. NG tube was connected to low intermittent suction. She was medically optimized prior to procedure. On 01/19/2018, she underwent exploratory laparotomy with abdominal washout. Intraoperative findings showed a malpositioned gastric feeding tube with intra- abdominal peritonitis and incarcerated fat containing ventral hernia; and sigmoid volvulus. G-tube was replaced. An abdominal wound VAC was inserted; incarcerated ventral hernia was excised and sigmoid volvulus was reduced. She tolerated procedure well. She was planned reexploration in 48 hours. On 01/21/2018, she underwent reexploration of the abdomen; sigmoid colectomy for volvulus and left hemicolectomy with creation of transverse colostomy and abdominal closure. She had 2 RENÉ drains placed into the abdomen. There was no perforation or Gross necrosis noted upon surgical exploration. Abdominal fluid culture did not isolate any growth. Blood culture with growth of diphtheroids 2/4, 1/4 CONS (contaminants), Aerococcus sp. Possible UTI. Urine culture did not isolate any growth, although often organism not isolated from urine culture given special media requirements. She had elevated CPK, likely secondary to sepsis and possibly from daptomycin. Daptomycin was discontinued. PO Bactrim was added to cover for MDR ABC given possible infiltrates in the chest x-ray. She had worsening renal function. Patient had septic shock and had oligoria and acute renal failure. She was given albumin bolus. RENÉ drain with serous output and ostomy was viable. G-tube was connected to low intermittent suction. She was given wound care. She was given IV stress dose steroids. She was eventually taken off IV pressors. Echocardiogram done showed no evidence of heart failure. She was having tachycardia however has no indication to be started on beta blockers. She had an episode of VT. She was given magnesium and phosphorus replacement. She had an episode of drop of hemoglobin. she received 2 units PRBC. Feeding was placed on hold. Gastric lavage was heme-negative. Feeding was eventually restarted. Blood levels stabilized. Overall condition improved and leukocytosis was resolving. Drains were removed. Ostomy functional. She was eventually cleared for discharge back to [facility]. FINAL DIAGNOSES: Severe sepsis Septic shock Status post cardiac arrest Acute renal failure with ATN Incarcerated ventral hernia Volvulus of sigmoid colon Drop in hemoglobin requiring blood transfusion Acute blood loss anemia Vent dependent respiratory failure Possible pneumonia Anoxic brain injury Feeding via G-tube Lactic acidosis Elevated CPK Coagulopathy due to malnutrition and DIC Seizure disorder Status post exploratory laparotomy with abdominal washout and placement of abdominal vac on 01/19/2018 Status post repeat exploratory laparotomy with hemicolectomy and creation of colostomy on 01/21/2018 (Referred to operative report) DISPOSITION: Patient was discharged back to [facility] MEDICATIONS: Refer to Discharge Medication List. I have been assigned to dictate discharge summary on this account, and I was not involved in the patient's management. Kiki Liao NP Feb 04, 2018 15:32
== END 2018-02-03 18:28 | DRG 710 ==
LOC: EDBD 01:31 → EMR 01:50 → 2W 02:24 → EDBEDREQ 03:00 → ICU 11:51 → 2W 01-28 11:57
PROC: 5A1955Z Respiratory Ventilation, Greater than 96 Consecutive Hours (ICD-10-PCS; principal; 2018-01-18)
PROC: 06HM33Z Insertion of Infusion Device into Right Femoral Vein, Percutaneous Approach (ICD-10-PCS; principal; 2018-01-18)
PROC: 0D20XUZ Change Feeding Device in Upper Intestinal Tract, External Approach (ICD-10-PCS; 2018-01-19)
PROC: 0WBF0ZZ Excision of Abdominal Wall, Open Approach (ICD-10-PCS; 2018-01-19)
PROC: 0DSN0ZZ Reposition Sigmoid Colon, Open Approach (ICD-10-PCS; 2018-01-19)
PROC: 2W13X6Z Compression of Abdominal Wall using Pressure Dressing (ICD-10-PCS; 2018-01-19)
PROC: 0D1L0Z4 Bypass Transverse Colon to Cutaneous, Open Approach (ICD-10-PCS; 2018-01-21)
PROC: 02HV33Z Insertion of Infusion Device into Superior Vena Cava, Percutaneous Approach (ICD-10-PCS; 2018-01-21)
PROC: 0DTL0ZZ Resection of Transverse Colon, Open Approach (ICD-10-PCS; 2018-01-21)
PROC: 0DTG0ZZ Resection of Left Large Intestine, Open Approach (ICD-10-PCS; 2018-01-21)
PROC: B548ZZA Ultrasonography of Superior Vena Cava, Guidance (ICD-10-PCS; 2018-01-21)
DX: A41.9 Sepsis, unspecified organism (principal); D65 Disseminated intravascular coagulation [defibrination syndrome]; J96.20 Acute and chronic respiratory failure, unspecified whether with hypoxia or hypercapnia; N17.0 Acute kidney failure with tubular necrosis; R65.21 Severe sepsis with septic shock; G93.1 Anoxic brain damage, not elsewhere classified; A04.72 Enterocolitis due to Clostridium difficile, not specified as recurrent; J18.9 Pneumonia, unspecified organism; E46 Unspecified protein-calorie malnutrition; I46.8 Cardiac arrest due to other underlying condition; K56.2 Volvulus; K43.6 Other and unspecified ventral hernia with obstruction, without gangrene; Z99.11 Dependence on respirator [ventilator] status; Z93.0 Tracheostomy status; G93.41 Metabolic encephalopathy; Z86.74 Personal history of sudden cardiac arrest; R13.10 Dysphagia, unspecified; K94.22 Gastrostomy infection; K65.8 Other peritonitis; T85.528A Displacement of other gastrointestinal prosthetic devices, implants and grafts, initial encounter; I10 Essential (primary) hypertension; G40.909 Epilepsy, unspecified, not intractable, without status epilepticus; E53.8 Deficiency of other specified B group vitamins; E83.42 Hypomagnesemia; K92.2 Gastrointestinal hemorrhage, unspecified; D62 Acute posthemorrhagic anemia; Z68.32 Body mass index [BMI] 32.0-32.9, adult
CPT/HCPCS: 36415; 36569; 36600; 71045; 71250; 74018; 74176; 76937; 80048; 80053; 80061; 80069; 80185; 80202; 80299; 81001; 81003; 81270; 82140; 82150; 82248; 82378; 82550; 82553; 82728; 82746; 82803; 82962; 82977; 83036; 83090; 83540; 83550; 83605; 83690; 83735; 83880; 84100; 84132; 84133; 84300; 84443; 84484; 84550; 85007; 85025; 85384; 85610; 85611; 85730; 86140; 86703; 86803; 86850; 86900; 86901; 86920; 87040; 87070; 87075; 87081; 87086; 87181; 87205; 87324; 87517; 89050; 92950; 93005; 93306; 93970; 94002; 94003; 94150; 94664; 99285; J0171; J1165; J2250; J2370; J2405